=== PATIENT | male | born 1945 | race Caucasian/White ===

== ENCOUNTER → 2023-10-16 07:11 | Outpatient (REF) | payer MEDICARE, OTHER, SELFPAY ==
[2023-10-16 10:03] LABS: ALT (SGPT) 12 U/L (0-50); AST (SGOT) 19 U/L (17-59); Albumin 3.9 g/dl (3.5-5.0); Alkaline Phosphatase 104 U/L (38-126); Blood Urea Nitrogen 25 mg/dl (9-20); Calcium 9.3 mg/dl (8.4-10.2); Carbon Dioxide 31 mmol/L (22-30); Chloride 101 mmol/L (98-107); Glucose 122 mg/dl (70-99); Potassium 3.7 mmol/L (3.5-5.1); Sodium 138 mmol/L (135-145); Total Bilirubin 0.6 mg/dl (0.2-1.3); Total Protein 6.9 g/dl (6.3-8.2); eGFR > 60.00
[2023-10-16 11:25] LABS: Microalbumin, Random Urine 15.8 mg/dl (0.6-1.7)
[2023-10-16 12:29] LABS: Glycohemoglobin (HgbA1c) 7.2 % (4.0-5.6)
== END ==
LOC: HWLAB 07:11
PROVIDERS: ATTENDING PHYSICIAN Internal Medicine Endocrinology, Diabetes & Metabolism; FAMILY PHYSICIAN Family Medicine
DX: E11.9 Type 2 diabetes mellitus without complications (principal)
CPT/HCPCS: 36415; 80053; 82043; 82570; 83036

== ENCOUNTER → 2024-01-22 07:25 | Outpatient (REF) | payer MEDICARE, OTHER, SELFPAY ==
[2024-01-22 09:35] LABS: ALT (SGPT) 11 U/L (0-50); AST (SGOT) 21 U/L (17-59); Albumin 3.9 g/dl (3.5-5.0); Alkaline Phosphatase 94 U/L (38-126); Blood Urea Nitrogen 28 mg/dl (9-20); Calcium 9.4 mg/dl (8.4-10.2); Carbon Dioxide 30 mmol/L (22-30); Chloride 101 mmol/L (98-107); Glucose 89 mg/dl (70-99); Potassium 3.7 mmol/L (3.5-5.1); Sodium 139 mmol/L (135-145); Total Bilirubin 0.6 mg/dl (0.2-1.3); Total Protein 6.7 g/dl (6.3-8.2); eGFR > 60.00
[2024-01-22 09:42] LABS: Protein/creatinine Ratio 0.4; Urine Protein 23 mg/dl
== END ==
LOC: HWLAB 07:25
PROVIDERS: ATTENDING PHYSICIAN Internal Medicine Endocrinology, Diabetes & Metabolism; FAMILY PHYSICIAN Family Medicine
DX: E11.9 Type 2 diabetes mellitus without complications (principal); Z79.4 Long term (current) use of insulin; E34.9 Endocrine disorder, unspecified
CPT/HCPCS: 36415; 80053; 82570; 83036; 84156

== ENCOUNTER → 2024-06-12 07:57 | Outpatient (REF) | payer MEDICARE, OTHER, SELFPAY ==
[2024-06-12 09:43] LABS: Glycohemoglobin (HgbA1c) 7.3 % (4.0-5.6)
[2024-06-12 09:49] LABS: ALT (SGPT) 15 U/L (0-50); AST (SGOT) 20 U/L (17-59); Albumin 4.1 g/dl (3.5-5.0); Alkaline Phosphatase 84 U/L (38-126); Blood Urea Nitrogen 28 mg/dl (9-20); Calcium 9.3 mg/dl (8.4-10.2); Carbon Dioxide 28 mmol/L (22-30); Chloride 99 mmol/L (98-107); Glucose 156 mg/dl (70-99); Sodium 141 mmol/L (135-145); Total Bilirubin 1.1 mg/dl (0.2-1.3); Total Protein 6.8 g/dl (6.3-8.2); eGFR > 60.00
== END ==
LOC: REG 07:57
PROVIDERS: ATTENDING PHYSICIAN Internal Medicine Endocrinology, Diabetes & Metabolism; FAMILY PHYSICIAN Family Medicine
DX: E11.9 Type 2 diabetes mellitus without complications (principal)
CPT/HCPCS: 36415; 80053; 83036

== ENCOUNTER → 2024-10-02 13:48 | Outpatient (REF) | payer MEDICARE, OTHER, SELFPAY | LOC: HWRCS 13:48 | PROVIDERS: ATTENDING PHYSICIAN Internal Medicine Cardiovascular Disease; FAMILY PHYSICIAN Family Medicine | DX: I48.0 Paroxysmal atrial fibrillation (principal) | CPT/HCPCS: 93306 ==

== ENCOUNTER → 2024-10-09 07:47 | Outpatient (REF) | payer MEDICARE, OTHER, SELFPAY ==
[2024-10-09 10:32] LABS: ALT (SGPT) 13 U/L (0-50); AST (SGOT) 18 U/L (17-59); Albumin 4.1 g/dl (3.5-5.0); Alkaline Phosphatase 110 U/L (38-126); Blood Urea Nitrogen 30 mg/dl (9-20); Calcium 9.4 mg/dl (8.4-10.2); Carbon Dioxide 28 mmol/L (22-30); Chloride 99 mmol/L (98-107); Glucose 171 mg/dl (70-99); HDL Cholesterol 33 mg/dl; LDL Cholesterol, Calculated 33 mg/dl; Sodium 139 mmol/L (135-145); Total Bilirubin 0.7 mg/dl (0.2-1.3); Total Cholesterol 112 mg/dl (50-199); Total Protein 6.7 g/dl (6.3-8.2); Triglyceride 232 mg/dl (10-149); Very Low Density Lipoprotein 46 mg/dl (0-30); eGFR > 60.00
[2024-10-09 10:44] LABS: Protein/creatinine Ratio 0.3; Urine Protein 28 mg/dl
[2024-10-09 10:59] LABS: PSA, Total - Screen 1.73 ng/ml (0.0-4.0)
[2024-10-09 11:29] LABS: Glycohemoglobin (HgbA1c) 7.6 % (4.0-5.6)
== END ==
LOC: HWLAB 07:47
PROVIDERS: ATTENDING PHYSICIAN Internal Medicine Endocrinology, Diabetes & Metabolism; FAMILY PHYSICIAN Family Medicine
DX: Z12.5 Encounter for screening for malignant neoplasm of prostate (principal); E11.9 Type 2 diabetes mellitus without complications; Z79.4 Long term (current) use of insulin; E34.9 Endocrine disorder, unspecified; R80.9 Proteinuria, unspecified
CPT/HCPCS: 36415; 80053; 80061; 82570; 83036; 84156; G0103

== ENCOUNTER → 2025-01-13 07:38 | Outpatient (REF) | payer MEDICARE, OTHER, SELFPAY ==
[2025-01-13 10:20] LABS: Glycohemoglobin (HgbA1c) 7.1 % (4.0-5.6)
[2025-01-13 10:23] LABS: ALT (SGPT) 11 U/L (0-50); AST (SGOT) 16 U/L (17-59); Albumin 4.1 g/dl (3.5-5.0); Alkaline Phosphatase 91 U/L (38-126); Blood Urea Nitrogen 22 mg/dl (9-20); Calcium 9.1 mg/dl (8.4-10.2); Carbon Dioxide 28 mmol/L (22-30); Chloride 103 mmol/L (98-107); Glucose 109 mg/dl (70-99); Potassium 3.7 mmol/L (3.5-5.1); Sodium 138 mmol/L (135-145); Total Protein 6.8 g/dl (6.3-8.2); eGFR > 60.00
== END ==
LOC: HWLAB 07:38
PROVIDERS: ATTENDING PHYSICIAN Internal Medicine Endocrinology, Diabetes & Metabolism; FAMILY PHYSICIAN Family Medicine
DX: E11.9 Type 2 diabetes mellitus without complications (principal)
CPT/HCPCS: 36415; 80053; 83036

== ENCOUNTER 2025-01-28 15:15 | Inpatient (IN) | payer MEDICARE, OTHER, SELFPAY ==
[2025-01-28] VITALS (15 sets, daily range): BP systolic 85–140; BP diastolic 48–108; BMI 31.1
--- NOTE | 2025-01-28 12:41 | ED.GENMED ---
Addendum entered and electronically signed by Riley Saucedo DO 01/28/25 15:12:
Update asked to reevaluate the patient he looks flushed blood pressure in the 80s received half his dose of Vanco suspect more sepsis than red man, will run the rest antibiotic is slowly give a second liter saline, follow closely
Reviewed with hospitalist and nursing patient and Dr. Daniels's
CRITICAL CARE STATEMENT: A total of 30 minutes of critical care time was provided for this patient. This includes management of unstable vital signs, evaluation of the patient at bedside, reviewing the patient's pertinent medical records discussion
with EMS providers and patient's family in addition to discussion with consultants, review of old EKGs and review of pertinent medical records. This time with separate from time utilized to perform the aforementioned documented procedures
Original Note:
History of Present Illness
General
Chief Complaint: Skin Problem
Source: patient, spouse and previous hospital records
Exam Limitations: none
Time Seen by Provider: 01/28/25 12:05
History of Present Illness
History of Present Illness:
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 Frank Carbajal cardiology
has PAF no known history of peripheral vascular disease
Past History
Past History
ED Past Medical History: Arrthythmia (atrial fibrillation), CAD, HTN, Hypercholesterolemia, IDDM, NIDDM and Other (Back pain, hepatitis secondary to mononucleosis in 1989)
ED Past Surgical History: Orthopedic (lumbar laminectomy, bilateral knee arthroscopy) and Other (lumbar epidural steroid injection, spinal nerve stimulator implant)
Social History
Tobacco: Non-smoker
Alcohol: None
Drug: None
Personal:
Living: with family
Employment: Employed
Family History
Family History: Other (reviewed and noncontributory)
Review of Systems
Review of Systems
All Other Systems: Not applicable
Phy Exam
Physical Exam
Physical Exam:
Physical Exam
General: 79-year-old male normal mental status low-grade temp noted
Neck: No jaundice
Heart: s1/s2 regular rate and rhythm, no murmur. equal radial pulses.
Lungs: no acute respiratory distress. clear bilaterally
Abdomen: Nontender
Neuro: alert and oriented. no focal neurological deficits
Skin: no rash
Psychiatric: well kept. interactive and cooperative
Extremities: Left foot warm red cellulitic blackish area between the 4th and 5th toe
Course
Orders/Labs/Results
Orders:
Orders
01/28/25 12:19
Electrocardiogram (*1) Urgent
Reason for Study: Other
Other Reason for Exam: sepsis
Cardiac Monitoring- Treatment ONCE
EKG- Treatment ONCE
IV Insert/Care/Rem.- Treatment PRN
Acetaminophen [Tylenol] 1,000 mg PO NOW STA
Morphine Sulfate 4 mg IV NOW STA
01/28/25 12:20
Foot, Left 3 View [CR Foot - Left Min 3 Views] Urgent
Comment:
Reason For Exam: infection
01/28/25 12:23
CRP [C-Reactive Protein] Urgent
Complete Blood Count/With Diff Urgent
Comprehensive Metabolic Panel Urgent
ESR [Erythrocyte Sed Rate] Urgent
Lactic Acid Q4H
Comment: CANCEL 2nd LACTIC ACID IF 1st LACTIC ACID IS LESS THAN 2
01/28/25 12:24
Blood Culture Q30M
SHAWNA Source: Blood/Venous
Specimen Description:
01/28/25 12:30
Lactic Acid Q4H
Comment: CANCEL 2nd LACTIC ACID IF 1st LACTIC ACID IS LESS THAN 2
01/28/25 12:41
Add On- LAB Urgent
Tests Added?: hemoglobin a1c
01/28/25 13:00
Blood Culture Q30M
SHAWNA Source: Blood/Venous
Specimen Description:
01/28/25 13:26
Vancomycin [Vancocin] 2,000 mg 0.9% Sodium Chloride 500 ml [Nss] 500 ml IV NOW
Abnormal Lab Results
01/28/25
12:23
WBC 26.0 H 10^3/uL
(4.8-10.8)
RBC 3.84 L 10^6/uL
(4.70-6.10)
Hgb 11.6 L g/dL
(13.0-18.0)
Hct 34.4 L %
(39.0-52.0)
ESR 78 H mm/hour
(0-20)
Sodium 133 L mmol/L
(135-145)
Chloride 97 L mmol/L
(98-107)
BUN 33 H mg/dl
(9-20)
Glucose 117 H mg/dl
(70-99)
C-Reactive Protein 228.10 H mg/L
(0.0-10.00)
01/28/25 12:23
01/28/25 12:23
Vital Signs
Initial and Last Documented VS:
Initial Vital Signs
Temp Pulse Resp BP Pulse Ox
99.5 F 95 16 117/59 95
01/28/25 10:12 01/28/25 10:12 01/28/25 10:12 01/28/25 10:12 01/28/25 10:12
Last Documented Vital Signs
Temp Pulse Resp BP Pulse Ox
99.5 F 95 16 117/59 95
01/28/25 10:12 01/28/25 10:12 01/28/25 10:12 01/28/25 10:12 01/28/25 12:41
MDM/Problems Addressed
Differential Diagnosis Includes:
Cellulitis osteomyelitis peripheral vascular disease
MDM/Problems Addressed:
Infected foot
Chronic conditions affecting care: DM, HTN, CAD and Arrhythmia
Acute Exacerbation and/or Progression of Chronic Illness: DM, HTN, CAD and Arrhythmia
*Radiology
Radiology exam reviewed: preliminary read by ED provider
*Pulse Oximetry
SaO2: 95
Oxygen Mode of Delivery: Room air
Patient hypoxic: no
*EKG
Interpreted by ED Provider?: Yes
Interpretation: abnormal
Comparison EKG: no comparison EKG present
Heart Rate: 78
Rate: normal
Rhythm: sinus
Ischemia: non-specific ST changes
*Toe Former Stitchdowns Interpretation
Rate: normal
Interpretation: normal
Heart Rate: 78
Rhythm: sinus
*Critical Care Note
Total Time (30-74mins, 75-104mins- exclusive of procedures): Not Applicable
Update Note
Update Note:
2 PM update x-ray noted report noted inflammatory markers noted labs noted antibiotics ordered message sent to hospitalist for admission
ED Attending Note
-
Portions of this chart may have been created with voice recognition software.� Occasional wrong word or��sound alike� substitutions may have occurred due to the inherent limitations of voice recognition software.
Discharge Plan
Departure
Patient Disposition: Admit
Date of Disposition: 01/28/25
Time of Disposition: 13:57
Admit to: Med/Surg
Presentation/result/management discussed w/ accepting MD/DO: Hospitalist
Patient with high blood pressure during this ER visit?: No
Condition: Fair
Discharge Problem:
Diabetic foot infection
Prescriptions:
No Action
lovastatin 40 MG tablet
40 mg PO HS
insulin aspart U-100 [Novolog U-100 Insulin aspart] 1,000 UNITS/10 ML solution
4 - 14 units SC AC
hydrochlorothiazide 50 MG tablet
50 mg PO DAILY
lisinopril 20 MG tablet
20 mg PO BID
metformin 1,000 MG tablet
1,000 mg PO BID@0800,1700 Qty: 0 0RF
Rx Instructions:
Resume on Monday 6/3 evening
Metamucil Packet
1 packet PO BID
hydralazine 25 mg tablet
25 mg PO BID
Probiotic 5 billion cell Capsule, Sprinkle
1 cap PO DAILY
insulin degludec 100 unit/mL (3 mL) insulin pen
24 unit SC HS
metoprolol succinate 25 MG tablet extended release 24 hr
25 mg PO BID
Xarelto 20 MG tablet
20 mg PO QPM
Referrals:
Kasey Pathak MD [Family Provider, Endocrinology]
Interventions
Interventions:
*Risk Screen - Suicide Last Done: 01/28/25 10:14
*General Assessment Last Done: 01/28/25 12:10
*Neglect/Abuse Screening Last Done: 01/28/25 10:14
*ED- Fall Risk Assessment Last Done: 01/28/25 12:10
*ED COVID-19 Vaccine History Last Done: 01/28/25 12:10
Discharge Date and Time
Print Language: IRANIAN
[2025-01-28] MEDS: MORPHINE SULFATE 4 MG IV ×2 (13:10→20:12)
[2025-01-28] MEDS: TYLENOL 1000 MG PO (13:10)
[2025-01-28 13:17] LABS: Hematocrit 34.4 % (39.0-52.0); Hemoglobin 11.6 g/dL (13.0-18.0); Mean Corp Hgb Conc. 33.7 g/dL (33.0-37.0); Mean Corpuscular Volume 89.6 fL (80.0-94.0); Platelet Count 309 10^3/uL (130-400); Red Cell Dist. Width 14.1 % (11.5-14.5)
[2025-01-28 13:31] LABS: ALT (SGPT) 15 U/L (0-50); AST (SGOT) 22 U/L (17-59); Albumin 4.1 g/dl (3.5-5.0); Alkaline Phosphatase 110 U/L (38-126); Blood Urea Nitrogen 33 mg/dl (9-20); Calcium 9.4 mg/dl (8.4-10.2); Carbon Dioxide 27 mmol/L (22-30); Chloride 97 mmol/L (98-107); Estimated Creatinine Clearance 69 ml/min; Glucose 117 mg/dl (70-99); Potassium 4.1 mmol/L (3.5-5.1); Sodium 133 mmol/L (135-145); Total Protein 7.2 g/dl (6.3-8.2); eGFR > 60.00
[2025-01-28 13:50] LABS: C-Reactive Protein 228.10 mg/L (0.0-10.00)
[2025-01-28] MEDS: VANCOCIN 540 MG IV (14:01)
--- NOTE | 2025-01-28 14:05 | HPS.HSE ---
Family Physician
-
Family Physician: Kasey Pathak
Chief Complaint
-
Left foot erythema extending up left medial thigh with rigors, dry heaves
History of Present Illness
79-year-old male who states a few weeks ago he expressed pus from the plantar aspect of his fifth metatarsal near a callus then applied triple antibiotic ointment over top of it. He states he started to notice erythema on the dorsal aspect of the
fifth metatarsal over the past few weeks which then progressed to generalized erythema and lymphangitis on the medial aspect of his leg extending to the mid thigh over the past 4 days. He states he began ciprofloxacin then yesterday developed
rigors in between taking Advil and Tylenol along with dry heaves. He has history of paroxysmal A-fib is on Xarelto. He did take his a.m. medications this morning except diabetic meds due to nausea his current sugar is 115.
He has past medical history DM 2, HTN, HLD, permanent A-fib, permanent pacemaker cardiac pauses 2021, chronic left leg weakness due to back injury during procedure 2019, spinal stimulator
Medical History
Past Medical History
Past Medical History: Reports Other
Additional Past Medical History:
DM 2
HTN,
HLD
permanent A-fib on Xarelto
permanent pacemaker cardiac pauses 2021
chronic left leg weakness due to back injury during procedure 2019
spinal stimulator not active
Past Surgical History: Reports Other
Additional Past Surgical History:
spinal stimulator not active
Permanent pacemaker 2021
Bilateral knee arthroscopy
Lumbar laminectomy
Lumbar procedure unknown type XX 20 leaving patient with left leg weakness, numbness
Trigger finger release bilateral hands
Social History
Tobacco: Non-smoker
Alcohol: None
Drug: None
Personal:
Living: With Family ( Aline)
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
Family History
Family History: Not pertinent
Allergies / Home Medications
Allergies reflects when Allergies were last updated in [employer].
Home Medications with original date entered in [employer]
Allergy/Medication List:
Allergies
Allergy/AdvReac Type Severity Reaction Status Date / Time
No Known Allergies Allergy Verified 09/21/21 09:39
Home Medications
insulin aspart U-100 100 unit/mL subcutaneous solution (Novolog U-100 Insulin aspart) 4 - 14 units SC AC Diabetes 09/07/21
lovastatin 40 mg tablet 40 mg PO HS High cholesterol 09/07/21
hydrochlorothiazide 50 mg tablet 50 mg PO DAILY Blood Pressure 09/21/21
lisinopril 20 mg tablet 20 mg PO BID Blood pressure 09/21/21
metformin 1,000 mg tablet 1,000 mg PO BID@0800,1700 Diabetes ##0 12/02/21
Lactobacil.acidophilus-Bifido.animalis 5 billion cell sprinkle capsule (Probiotic) 1 cap PO DAILY Gastrointestinal Issue 01/28/25
hydralazine 25 mg tablet 25 mg PO BID Blood Pressure 01/28/25
insulin degludec 100 unit/mL (3 mL) subcutaneous pen 24 unit SC HS Diabetes 01/28/25
metoprolol succinate 25 mg tablet,extended release 24 hr 25 mg PO BID Blood Pressure 01/28/25
psyllium 1 packet PO BID Constipation 01/28/25
rivaroxaban 20 mg tablet (Xarelto) 20 mg PO QPM Blood clot prevention/tx 01/28/25
Review of Systems
-
History Source: Patient and Family ( Aline)
A 12 point ROS was completed and negative except as noted: Yes
Constitutional: Reports Fever and Chills
EENT: Denies Sore Throat or Runny Nose
Respiratory: Denies Cough or Trouble Breathing
Cardiac: Denies Chest Pain, Diaphoresis, Palpitations or Syncope
Abdomen/GI: Reports Nausea and Vomiting (Dry heaves); Denies Abdominal Pain, Diarrhea or Constipated
: Denies Dysuria, Frequency, Flank Pain, Incontinence, Difficulty Voiding or Urgency
Skin: Reports Other (erythema on the dorsal aspect of the fifth metatarsal extending to the medial aspect of his leg extending to the mid thigh, plantar solid callus left fifth metatarsal); Denies Itching or Rash
Neurological: Denies Dizzy or Headache
Endocrine: Reports No Symptoms
Hematologic/Lymphatic: Reports No Symptoms
Psych: Reports Calm
Physical Exam
Vital Signs
Vital Signs
Temp Pulse Resp BP Pulse Ox
99.5 F 95 16 117/59 95
01/28/25 10:12 01/28/25 10:12 01/28/25 10:12 01/28/25 10:12 01/28/25 12:41
Physical Exam
General: Pain, Fever and Chills
HEENT: NormoCephalic, Anicteric, Moist mucous membranes, Terral Conjunctivae and No Ptosis
Respiratory: Clear; No Wheezes, Rales or Rhonchi
Cardiac: S1/S2, Irregular Rhythm (A-fib) and Peripheral Edema (Left lower extremity); No Murmur, Rub or Gallop
GI: Soft, Non Tender, Non Distended, Normal Bowel Sounds and No Hepatosplenomegaly
Rectal: Deferred by Provider
Musculoskeletal: No Clubbing, No Cyanosis and Edema, Left Lower Extremity (erythema on the dorsal aspect of the fifth metatarsal extending to the medial aspect of his leg extending to the mid thigh, plantar solid callus left fifth metatarsal); No
Edema, Left Upper Extremity, Edema, Right Upper Extremity or Edema, Right Lower Extremity
Skin: Warm, Dry and Other (erythema on the dorsal aspect of the fifth metatarsal extending to the medial aspect of his leg extending to the mid thigh, plantar solid callus left fifth metatarsal); No Rash
Neuro: AO x 3, No Motor Deficits, Nonfocal/grossly intact, Cranial Nerves Intact and No Sensory Deficits; No Slurred Speech, Facial Droop, Tremors or Sedated
Psych: Calm
Laboratory Results
-
01/28/25 12:23
01/28/25 12:23
Laboratory Results
Lactic Acid 1.8 mmol/L (0.7-2.0) 01/28/25 12:23
Total Bilirubin 1.3 mg/dl (0.2-1.3) 01/28/25 12:23
AST 22 U/L (17-59) 01/28/25 12:23
ALT 15 U/L (0-50) 01/28/25 12:23
Alkaline Phosphatase 110 U/L (38-126) 01/28/25 12:23
Data Reviewed
-
Diagnostic Radiology: Report Reviewed by me
Lab Data: Labs Reviewed by me
Impression/Plan
-
Impression/plan:
Admit to telemetry
#Sepsis 2/2 to Diabetic left foot cellulitis w/Lymphangitis
#chronic left leg weakness due to back injury during procedure 2019
WBC 26, 99.5
ESR 78, CRP 228
-Blood cultures x 2
- IV vancomycin, Iv Zosyn
- check mrsa swab
- Unable to have MRI due to spinal stimulator not active
-Follow CBC, CMP
PT/OT
X-ray left foot: No acute osseous abnormality.
Mild soft tissue swelling along the lateral forefoot
#DM 2
Accu-Cheks with SSI low
Hold metformin 1000 mg twice daily
- Hold Tresiba 24 units SQ at bedtime due to dry heaves nausea mild hyperglycemia
#Mild hypotension/HTN/essential
BP 106/59-patient did take a.m. medications
Hold hydralazine 25 mg twice daily, lisinopril 20 mg twice daily,
- Continue metoprolol 25 mg twice daily for rate control with hold parameters
-Hold HCTZ 50 mg daily
- IV NSS 60 cc an hour
#A-fib�permanent
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
-- Continue metoprolol 25 mg twice daily for rate control with hold parameters
-cont Xarelto
- Patient follows with Dr. Munoz
#HLD
-Continue lovastatin 40 mg at bedtime
DVT prophylaxis
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
Full code
[2025-01-28 14:20] LABS: Nucleated Red Blood Cells % 0 % (-)
[2025-01-28] MEDS: NSS 1000 IV ×2 (15:12→18:14)
--- NOTE | 2025-01-28 15:24 | W.PN.UPDATE ---
Update Note
Progress Note Update
This is an addendum to the H&P written by Araseli Jasso on 01/28/2025. �Patient seen and examined independently with INTERNET MARKETING CONSULTANT.
79-year-old male past medical history of permanent atrial fibrillation on Xarelto, hyperlipidemia, hypertension, diabetes, presenting with left fifth metatarsal callus/tenderness with redness, swelling progressing up the leg. �He expressed pus from
the callus 3 weeks ago and put antibiotic on it.
Labs show leukocytosis.
Foot x-ray shows mild soft tissue swelling of the lateral forefoot.
Patient septic secondary to left foot cellulitis with lymphangitis. �IV fluids, blood cultures, check MRSA, vancomycin and Zosyn. �Hold blood pressure medications for now.
[2025-01-28 17:43] LABS: Glucose - Point of Care 124 mg/dl (70-99)
[2025-01-28] MEDS: NOVOLOG FLEXPEN-LOW RESISTANCE SC (17:59)
--- NOTE | 2025-01-28 18:01 | PHA.VAN.IN ---
Assessment
- Assessment
Renal Function: Appears similar to baseline
Concomitant Antimicrobials: piperacillin/tazobactam
AUC Dosing Plan
- Dosing Variables
Dosing Weight (kg): 95.6
Dosing CrCl (ml/min): 69
Vd coefficient (L/kg): 0.7
- Empiric Dosing
Initial / Loading Dose: vanc 2000mg administered @ 1400
Maintenance Regimen: vanc 1000mg Q12H
Estimated AUC (mcg*h/mL): 500
Estimated Peak (mcg*h/mL): 28.6
Estimated Trough (mcg/ml): 14.5
Estimated Half Life (H): 11.2
- Monitoring
No levels ordered at this time: consider levels in next few days
Pharmacokinetics Vancomycin I
- -
Patient Age: 79
Patient Sex: Male
Vancomycin Day #: 1
Indication: Bone And Joint
Requesting Provider: Araseli Jasso
Pertinent Antimicrobial Allergies:
no pertinent antimicrobial allergies
Height / Weight:
Height 5 ft 9 in
Actual Weight 95.6 kg
- Vital Signs / Lab Results
Temp Pulse Resp BP Pulse Ox
97.8 F 79 15 97/56 96
01/28/25 17:35 01/28/25 17:15 01/28/25 17:15 01/28/25 17:00 01/28/25 17:15
Lab Results - Hematology
01/28/25
12:23
WBC 26.0 H
Lab Results - Chemistry
01/28/25
12:23
BUN 33 H
Creatinine 1.0
Estimated Creat Clear 69
Albumin 4.1
01/28/25
12:23
Lactic Acid 1.8
[2025-01-28] MEDS: ZOSYN 50 IV ×2 (18:12→21:15)
[2025-01-28] MEDS: GLUCOPHAGE 1000 MG PO (18:13)
[2025-01-28] MEDS: XARELTO 20 MG PO (18:15)
[2025-01-28] MEDS: ROXICODONE 5 MG PO (18:15)
[2025-01-28] MEDS: METAMUCIL, KONSYL 1 PACKET PO (20:11)
[2025-01-28] MEDS: TOPROL XL PO (20:11)
[2025-01-28 21:47] LABS: Glucose - Point of Care 198 mg/dl (70-99)
[2025-01-29] VITALS (13 sets, daily range): BP systolic 97–147; BP diastolic 52–86; BMI 30.5
--- NOTE | 2025-01-29 00:34 | PTCARENOTE ---
Pt aaox3. Pt's on and at bedside at start of shift. Pt's sleep apnea score 4, intermediate. Per pt he was tested for sleep apnea in the past and it was negative. SpO2 95% on RA. afib w/ BBB on the monitor. Vital signs and assessment as
documented. DOMENIC medications administered as well as PRN Morphine for 8/10 LLE pain (see AUG). Pt is currently resting in bed asleep with call cervantes in reach.
--- NOTE | 2025-01-29 00:37 | PTCARENOTE ---
Assumed care of pt from arlin RN. Pt aaox3. Pt's son and at bedside at the start of shift. Pt's sleep apnea score 4 (intermediate risk). Per pt he was tested for sleep apnea in the past and it was negative. SpO2 95% on RA. afib w/ BBB on the
monitor. Vital signs and assessment as documented. DOMENIC medications administered as well as PRN Morphine for 8/10 LLE pain (see AUG). An hour after, pt's pain decreased to a 6 during post admin assessment. Pt stated this was an acceptable level of
pain for him at this time, and did not want to take anything else for it. Pt is currently resting in bed asleep with call cervantes in reach.
[2025-01-29] MEDS: ZOSYN 50 IV ×4 (03:52→21:06)
[2025-01-29 04:24] LABS: Hematocrit 30.8 % (39.0-52.0); Hemoglobin 10.5 g/dL (13.0-18.0); Mean Corp Hgb Conc. 34.1 g/dL (33.0-37.0); Mean Corpuscular Volume 90.1 fL (80.0-94.0); Nucleated Red Blood Cells % 0 % (-); Platelet Count 284 10^3/uL (130-400); Red Cell Dist. Width 14.1 % (11.5-14.5)
[2025-01-29 04:53] LABS: ALT (SGPT) 16 U/L (0-50); AST (SGOT) 39 U/L (17-59); Albumin 3.4 g/dl (3.5-5.0); Alkaline Phosphatase 104 U/L (38-126); Blood Urea Nitrogen 30 mg/dl (9-20); Calcium 8.4 mg/dl (8.4-10.2); Carbon Dioxide 25 mmol/L (22-30); Chloride 102 mmol/L (98-107); Estimated Creatinine Clearance 69 ml/min; Glucose 177 mg/dl (70-99); Potassium 3.8 mmol/L (3.5-5.1); Sodium 134 mmol/L (135-145); Total Protein 6.0 g/dl (6.3-8.2); eGFR > 60.00
[2025-01-29] MEDS: MORPHINE SULFATE 4 MG IV ×3 (06:13→19:55)
[2025-01-29] MEDS: VANCOCIN 200 IV ×2 (06:13→18:32)
[2025-01-29 07:24] LABS: Glucose - Point of Care 218 mg/dl (70-99)
--- NOTE | 2025-01-29 07:59 | W.PN.HOSP.TC ---
Today's Communication/Plan
-
Stable for telemetry
Assessment / Plan
Assessment / Plan
HPI: 79-year-old male past medical history of permanent atrial fibrillation on Xarelto, hyperlipidemia, hypertension, diabetes, presenting with left fifth metatarsal callus/tenderness with redness, swelling progressing up the leg. He expressed pus
from the callus 3 weeks ago and put antibiotic on it. Labs show leukocytosis. Foot x-ray shows mild soft tissue swelling of the lateral forefoot. Patient septic secondary to left foot cellulitis with lymphangitis. �IV fluids, blood cultures, check
MRSA, vancomycin and Zosyn. �Hold blood pressure medications for now.
#Sepsis 2/2 to Diabetic left foot cellulitis w/ lymphangitis
#Chronic left leg weakness due to back injury during procedure 2019
Unable to have MRI due to spinal stimulator not active
Labs in ER: WBC 26, ESR 78, CRP 228
Continue IV vancomycin, Zosyn. Follow-up on blood cultures, MRSA screen
Stable for telemetry. Trend fever and white count
PT/OT
X-ray left foot: No acute osseous abnormality.
Mild soft tissue swelling along the lateral forefoot
#DM 2
Continue metformin 1000 mg daily, resume basal insulin at reduced dose of 10 units at bedtime, patient takes 24 at home
Accu-Cheks with SSI low
#Mild hypotension/HTN/essential
BP 106/59-patient did take a.m. medications
Hold hydralazine 25 mg twice daily, lisinopril 20 mg twice daily, HCTZ 50 mg daily
Continue metoprolol 25 mg twice daily for rate control with hold parameters
IV NSS 60 cc an hour
#A-fib�permanent
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
-Continue metoprolol 25 mg twice daily for rate control with hold parameters
-Continue Xarelto
-Patient follows with Dr. Munoz
#HLD
-Continue lovastatin 40 mg at bedtime
DVT prophylaxis - PROGRAM AIDE GROUP WORK Xarelto
Full code
Total time spent to see the patient on the floor, examine the patient, review data and lab results, discuss treatment plan with patient, nursing staff around 50 minutes.
Physical Exam
General: No acute distress
HEENT: Normocephalic, Atraumatic, EOMI, MMM
Respiratory: Clear to Auscultation bilaterally
Cardiac: Normal S1/S2, Regular Rate and Rhythm
GI: Soft, Nontender, Nondistended, Normal Bowel Sounds
Extremities: No Clubbing, Cyanosis
Left foot with scattered erythema, improving erythema of the calf
Neuro: Nonfocal/Grossly Intact
Psych: Calm, Cooperative
Anticipated Discharge: > 48 hours
Subjective/Interval History
-
Date of Service: January 29, 2025
Patient's left foot is numb, with intermittent shooting pain. Denies chest pain, denies shortness of breath. Fever resolved, no vomiting.
Objective Data
-
Labs:
Laboratory Results
01/29/25
04:07
WBC 18.3 H
Hgb 10.5 L
Hct 30.8 L
Plt Count 284
Sodium 134 L
Potassium 3.8
Chloride 102
Carbon Dioxide 25
BUN 30 H
Creatinine 1.0
Glucose 177 H
Calcium 8.4
Total Bilirubin 0.9
AST 39
ALT 16
Alkaline Phosphatase 104
Vital Signs:
Vital Signs
Temp Pulse Resp BP Pulse Ox
98.8 F 101 16 123/82 91
01/29/25 03:08 01/29/25 04:30 01/29/25 04:30 01/29/25 04:11 01/29/25 04:30
I&O
01/28/25 01/29/25 01/30/25
06:59 06:59 06:59
Intake Total 1500 / 1500
Output Total 800 / 800
Balance 700 / 700
--- NOTE | 2025-01-29 08:17 | PHA.VAN.FU ---
Vancomycin Assessment / Plan
- Assessment
Renal Function: Stable
WBC's are: Trending Down
In the past 24 hrs, patient has been: Afebrile
Concomitant Antimicrobials: piperacillin/tazobactam
- Dosing Plan
Continue: Vanc 1000mg Q12H
- Monitoring Plan
No level(s) ordered at this time: consider levels in next few days
- Follow Up
Pharmacy will continue to follow.
Vancomycin Follow UP
- -
Patient Age: 79
Patient Sex: Male
Vancomycin Day #: 2
Indication: Bone And Joint
Requesting Provider: Araseli Jasso
Pertinent Antimicrobial Allergies:
NKDA
Height / Weight:
Height 5 ft 9 in
Actual Weight 93.7 kg
Pertinent Past Medical History: BMI ~30.5, DM 2
- Vital Signs / Lab Results
Temp Pulse Resp BP Pulse Ox
98.8 F 101 16 123/82 91
01/29/25 03:08 01/29/25 04:30 01/29/25 04:30 01/29/25 04:11 01/29/25 04:30
Lab Results - Hematology
01/28/25 01/29/25
12:23 04:07
WBC 26.0 H 18.3 H
Lab Results - Chemistry
01/28/25 01/29/25
12:23 04:07
BUN 33 H 30 H
Creatinine 1.0 1.0
Estimated Creat Clear 69 69
Albumin 4.1 3.4 L
01/28/25 01/28/25
12:23 12:30
Lactic Acid 1.8 Cancelled
[2025-01-29 10:04] LABS: Glucose - Point of Care 237 mg/dl (70-99)
[2025-01-29] MEDS: TOPROL XL 25 MG PO ×2 (10:07→19:56)
[2025-01-29] MEDS: GLUCOPHAGE 1000 MG PO ×2 (10:07→16:56)
[2025-01-29] MEDS: ROXICODONE 5 MG PO (10:08)
[2025-01-29] MEDS: METAMUCIL, KONSYL PO ×2 (10:09→20:26)
[2025-01-29] MEDS: NSS 1000 IV (11:29)
[2025-01-29 11:43] LABS: Glucose - Point of Care 271 mg/dl (70-99)
[2025-01-29] MEDS: NOVOLOG FLEXPEN-LOW RESISTANCE 3 UNITS SC (12:54)
[2025-01-29] MEDS: NOVOLOG FLEXPEN-LOW RESISTANCE SC (12:54)
--- NOTE | 2025-01-29 16:30 | PTCARENOTE ---
Patient AAOX3. Patient refusing nursing care. Medicating with pain medication as ordered for pain at left foot. IV fluids and antibiotics infusing via left wrist IV. VS stable,afebrile. Afib on monitor. Family in room at bedside.
[2025-01-29 17:27] LABS: Glucose - Point of Care 218 mg/dl (70-99)
[2025-01-29] MEDS: NOVOLOG FLEXPEN-LOW RESISTANCE 2 UNITS SC (18:27)
[2025-01-29] MEDS: XARELTO 20 MG PO (18:32)
[2025-01-29] MEDS: LANTUS 0.1 UNITS SC (21:06)
[2025-01-29 21:19] LABS: Glucose - Point of Care 227 mg/dl (70-99)
[2025-01-30] VITALS (9 sets, daily range): BP systolic 113–175; BP diastolic 66–84
[2025-01-30] MEDS: NSS 1000 IV (03:32)
[2025-01-30] MEDS: ZOSYN 50 IV ×4 (03:33→22:12)
[2025-01-30 04:06] LABS: Hematocrit 29.1 % (39.0-52.0); Hemoglobin 9.9 g/dL (13.0-18.0); Mean Corp Hgb Conc. 34.0 g/dL (33.0-37.0); Mean Corpuscular Volume 89.8 fL (80.0-94.0); Platelet Count 272 10^3/uL (130-400); Red Cell Dist. Width 14.0 % (11.5-14.5)
[2025-01-30] MEDS: VANCOCIN 200 IV (05:48)
--- NOTE | 2025-01-30 06:21 | PTCARENOTE ---
No acute events overnight. Refusing care at times. Placed on 1 liter NC to maintains sp02 above 91. PRN morphine given for pain. Afebrile. Will continue to monitor.
[2025-01-30] MEDS: TOPROL XL 25 MG PO ×2 (08:58→20:20)
[2025-01-30] MEDS: GLUCOPHAGE 1000 MG PO ×2 (08:58→17:10)
[2025-01-30] MEDS: NOVOLOG FLEXPEN-LOW RESISTANCE 2 UNITS SC ×2 (09:05→12:51)
--- NOTE | 2025-01-30 09:14 | W.PN.HOSP.TC ---
Today's Communication/Plan
-
see bold
Assessment / Plan
Assessment / Plan
HPI: 79-year-old male past medical history of permanent atrial fibrillation on Xarelto, hyperlipidemia, hypertension, diabetes, presenting with left fifth metatarsal callus/tenderness with redness, swelling progressing up the leg. He expressed pus
from the callus 3 weeks ago and put antibiotic on it. Labs show leukocytosis. Foot x-ray shows mild soft tissue swelling of the lateral forefoot. Patient septic secondary to left foot cellulitis with lymphangitis. �IV fluids, blood cultures, check
MRSA, vancomycin and Zosyn. �Hold blood pressure medications for now.
#Sepsis 2/2 to Diabetic left foot cellulitis w/ lymphangitis
#Chronic left leg weakness due to back injury during procedure 2019
Unable to have MRI due to spinal stimulator not active
Labs in ER: WBC 26, ESR 78, CRP 228
Continue Zosyn. MRSA screen negative, will discontinue vancomycin
Stable for telemetry. Trend fever and white count
PT/OT, wound care, consult podiatry, follow-up ABIs
X-ray left foot: No acute osseous abnormality.
Mild soft tissue swelling along the lateral forefoot
#DM 2
Hemoglobin A1c 7.1
Continue metformin 1000 mg daily, resumed basal insulin at reduced dose of 12 units at bedtime, patient takes 24 at home
Start Premeal insulin 3 units AC 3 times daily
Accu-Cheks with SSI low
#Essential hypertension
Blood pressure soft upon admission
Continue metoprolol 25 mg twice daily for rate control with hold parameters
Blood pressure rising, resume lisinopril 20 mg daily with hold parameters
Hold hydralazine 25 mg twice daily, hold HCTZ 50 mg daily
Can stop IV fluids
#A-fib�permanent
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
-Continue metoprolol 25 mg twice daily for rate control with hold parameters
-Continue Xarelto. Patient follows with Dr. Munoz
#HLD
-Continue lovastatin 40 mg at bedtime
#Obesity due to excess calories
- Affects all aspects of care
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
Full code
Total time spent to see the patient on the floor, examine the patient, review data and lab results, discuss treatment plan with patient, nursing staff around 51 minutes.
Physical Exam
General: Obese, no acute distress
HEENT: Normocephalic, Atraumatic, EOMI, MMM
Respiratory: Clear to Auscultation bilaterally
Cardiac: Normal S1/S2, Regular Rate and Rhythm
GI: Soft, Nontender, Nondistended, Normal Bowel Sounds
Extremities: No Clubbing, Cyanosis
Left foot with scattered erythema, improving erythema of the calf
Neuro: Nonfocal/Grossly Intact
Psych: Calm, Cooperative
Anticipated Discharge: > 48 hours
Subjective/Interval History
-
Date of Service: January 30, 2025
Patient denies foot pain. He is usually numb, but can have sharp shooting pains. He is constipated, but is refusing laxatives. No fever, no chest pain. No shortness of breath, no vomiting.
Objective Data
-
Labs:
Laboratory Results
01/30/25
03:39
WBC 19.6 H
Hgb 9.9 L
Hct 29.1 L
Plt Count 272
Vital Signs:
Vital Signs
Temp Pulse Resp BP Pulse Ox
98.2 F 90 14 175/82 97
01/30/25 07:05 01/30/25 06:03 01/30/25 06:03 01/30/25 06:03 01/30/25 02:00
I&O
01/29/25 01/30/25 01/31/25
06:59 06:59 06:59
Intake Total 1500 / 1500 2405 / 2405
Output Total 800 / 800 710 / 710
Balance 700 / 700 1695 / 1695
[2025-01-30 09:16] LABS: Glucose - Point of Care 230 mg/dl (70-99)
--- NOTE | 2025-01-30 09:34 | WOUNDNOTE ---
L FOOT (DORSAL)/LLE
--- NOTE | 2025-01-30 09:35 | WOUNDNOTE ---
L PLANTAR FOOT (lateral forefoot opening communicates under skin to plantar 5th MTH)
--- NOTE | 2025-01-30 09:36 | WOUNDNOTE ---
L PLANTAR FOOT (lateral forefoot opening communicates under skin to plantar 5th MTH)
--- NOTE | 2025-01-30 09:49 | WOUNDNOTE ---
[facility] RN note: Patient admitted with LLE cellulitis. 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 He stated he was wearing shoes that he hasn't worn in a long time recently which caused L foot skin breakdown.
See H&P for complete history.
PMH: a fib (Xarelto), DM, HTN, pacer, chronic LLE weakness after having a procedure 2019, spinal stimulator (not active), neuropathy.
Wound Location and type/assessment: Patient admitted with: L lateral forefoot broken blister that undermines to L plantar 5th MTH, skin macerated some, small cárdenas cloudy drainage. L 5th toe with some purple decolorization. Toe warm. LLE with diffuse
erythema mainly on L dorsal foot, redness improved LLE as per patient. R upper posterior heel/Achilles blanchable red. Pedal pulses heard via portable Doppler (R pedal faint).
Appetite: poor.
Pressure redistribution devices in place: Centrella Pro bed. Patient can turn self in bed.
Plan: Dressing changed on L lateral/plantar foot. Heels off bed with pillow. Instructed patient to avoid placing pressure on his L forefoot. Addison texted Dr. Archer update, requested local care and LE arterial Doppler orders; requested podiatry consult
to evaluate and recommend foot wear/any weight bearing restrictions.
Will confirm orders with hospitalist and update nurse.
Updated care plan and will follow as needed. Recommend follow up with implant coordinator.
[2025-01-30] MEDS: ZESTRIL 20 MG PO ×2 (10:12→20:20)
[2025-01-30 12:09] LABS: Glucose - Point of Care 234 mg/dl (70-99)
[2025-01-30] MEDS: METAMUCIL, KONSYL PO ×2 (12:14→20:19)
[2025-01-30] MEDS: MORPHINE SULFATE 4 MG IV ×2 (15:17→20:20)
[2025-01-30 16:36] LABS: Glucose - Point of Care 279 mg/dl (70-99)
[2025-01-30] MEDS: XARELTO 20 MG PO (17:11)
[2025-01-30] MEDS: NOVOLOG FLEXPEN-LOW RESISTANCE 3 UNITS SC (17:13)
--- NOTE | 2025-01-30 17:58 | WOUNDNOTE ---
[facility] RN note: mona ugarte Dr[address] Do re: patient's arterial Doppler result is in and asked hospitalist to review and consider vascular consult.
[2025-01-30 21:20] LABS: Glucose - Point of Care 327 mg/dl (70-99)
[2025-01-30] MEDS: LANTUS 0.12 UNITS SC (22:12)
[2025-01-31 03:00] VITALS: BP 113/70
[2025-01-31] MEDS: ZOSYN 50 IV (03:02)
[2025-01-31 07:00] VITALS: BP 138/78
[2025-01-31 07:34] LABS: Hematocrit 29.5 % (39.0-52.0); Hemoglobin 10.0 g/dL (13.0-18.0); Mean Corp Hgb Conc. 33.9 g/dL (33.0-37.0); Mean Corpuscular Volume 88.6 fL (80.0-94.0); Platelet Count 295 10^3/uL (130-400); Red Cell Dist. Width 14.2 % (11.5-14.5)
[2025-01-31 07:44] LABS: Glucose - Point of Care 325 mg/dl (70-99)
--- NOTE | 2025-01-31 08:13 | CON.MD ---
Consultation - Medical
-
Chief Complaint:
Left foot and leg cellulitis
History of Present Illness:
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 He states that this began initially when he developed a blister after wearing ill fitting boat shoes. He
subsequently applied triple antibiotic ointment to the site but began to notice some erythema a the site of the blister/ callus and on the dorsal aspect of the fifth metatarsal over the past few weeks. The localized redness then progressed to
generalized erythema and lymphangitis on the medial aspect of his leg extending to the mid thigh over the past 4 days. He states he began ciprofloxacin then yesterday developed rigors & dry heaves in between taking Advil and Tylenol. He has
history of paroxysmal A-fib is on Xarelto. He did take his a.m. medications this morning except diabetic meds due to nausea his current sugar is 115.
He has past medical history DM 2, HTN, HLD, permanent A-fib, permanent pacemaker cardiac pauses 2021, chronic left leg weakness due to back injury during procedure 2019, spinal stimulator
Past Medical History
Past Medical History: Reports Other
Additional Past Medical History:
DM 2
HTN,
HLD
permanent A-fib on Xarelto
permanent pacemaker cardiac pauses 2021
chronic left leg weakness due to back injury during procedure 2019
spinal stimulator not active
Past Surgical History:
spinal stimulator not active
Permanent pacemaker 2021
Bilateral knee arthroscopy
Lumbar laminectomy
Lumbar procedure unknown type XX 20 leaving patient with left leg weakness, numbness
Trigger finger release bilateral hands
Social History
Tobacco: Non-smoker
Alcohol: None
Drug: None
Personal:
Living: With Family ( Aline)
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
Family History
Not pertinent
Allergies
Allergy/AdvReac Type Severity Reaction Status Date / Time
No Known Allergies Allergy Verified 09/21/21 09:39
Home Medications
insulin aspart U-100 100 unit/mL subcutaneous solution (Novolog U-100 Insulin aspart) 4 - 14 units SC AC Diabetes 09/07/21
lovastatin 40 mg tablet 40 mg PO HS High cholesterol 09/07/21
hydrochlorothiazide 50 mg tablet 50 mg PO DAILY Blood Pressure 09/21/21
lisinopril 20 mg tablet 20 mg PO BID Blood pressure 09/21/21
metformin 1,000 mg tablet 1,000 mg PO BID@0800,1700 Diabetes ##0 12/02/21
Lactobacil.acidophilus-Bifido.animalis 5 billion cell sprinkle capsule (Probiotic) 1 cap PO DAILY Gastrointestinal Issue 01/28/25
hydralazine 25 mg tablet 25 mg PO BID Blood Pressure 01/28/25
insulin degludec 100 unit/mL (3 mL) subcutaneous pen 24 unit SC HS Diabetes 01/28/25
metoprolol succinate 25 mg tablet,extended release 24 hr 25 mg PO BID Blood Pressure 01/28/25
psyllium 1 packet PO BID Constipation 01/28/25
rivaroxaban 20 mg tablet (Xarelto) 20 mg PO QPM Blood clot prevention/tx 01/28/25
Physical Exam:
Pulses weakly palpable, generalized brawny edema, loss of pedal hair and atrophic changes to toes. There is cellulitis that arises from the submet 5 area where a callus is present. The erythema streaks to the lateral and dorsal foot. It appears
to have receded somewhat from the original demarcation. Beneath the callus is a superficial granular wound that measures 0.8 cm in diameter. It does not probe, undermine or track. No purulence expressed but there is some fluctuance along the
lateral 5th mpj area.
A bedside I&D was performed and approximately 3 cc's of purulent drainage was expressed from the lateral aspect of the 5th metatarsal head area.
Assessment:
Left foot Diabetic foot infection - abscess with cellulitis. Possible osteomyelitis 5th MPJ
IDDM
neuropathy
PAD
Plan:
He is evaluated at bedside. Chart, labs, x-rays and vascular studies reviewed
A bedside I&D was performed and purulence was drained from the site.
I am concerned that he may have an underlying osteomyelitis given the length of length that has passed since the original callus/blister appeared. Unfortunately he cannot have an MRI due to pacemaker/spinal stimulator.
I discussed bone biopsy/washout in the OR with him to rule out osteomyelitis.
I recommend ID consult
I also recommend vascular consult
Offload heels in bed, foot is bandaged- re-enforce as needed
He may use an orthowedge shoe and heel weightbear with walker assistance.
--- NOTE | 2025-01-31 08:50 | W.PN.HOSP.TC ---
Today's Communication/Plan
-
see bold
Assessment / Plan
Assessment / Plan
HPI: 79-year-old male past medical history of permanent atrial fibrillation on Xarelto, hyperlipidemia, hypertension, diabetes, presenting with left fifth metatarsal callus/tenderness with redness, swelling progressing up the leg. He expressed pus
from the callus 3 weeks ago and put antibiotic on it. Labs show leukocytosis. Foot x-ray shows mild soft tissue swelling of the lateral forefoot. Patient septic secondary to left foot cellulitis with lymphangitis. �IV fluids, blood cultures, check
MRSA, vancomycin and Zosyn. �Hold blood pressure medications for now.
#Sepsis 2/2 to Diabetic left foot cellulitis w/ lymphangitis
#Chronic left leg weakness due to back injury during procedure 2019
Unable to have MRI due to spinal stimulator not active
Wound culture growing MRSA
Appreciate ID input, antibiotics changed to vancomycin
Appreciate podiatry input, status post bedside I&D of L foot abscess 01/31
Podiatry recommends bone biopsy, offloading heels in bed, may use an orthowedge shoe and heel weightbear with walker assistance
#Peripheral artery disease
Appreciate vascular surgery input, plan for CTA with left lower extremity runoff tomorrow and left lower extremity angiogram Sunday 02/04
#DM 2
Hemoglobin A1c 7.1
Continue metformin 1000 mg daily, resumed basal insulin at reduced dose of 18 units at bedtime, patient takes 24 at home
Increase Premeal insulin 6 units AC 3 times daily
Accu-Cheks with SSI low
#Essential hypertension
Blood pressure soft upon admission
Continue metoprolol 25 mg twice daily for rate control with hold parameters
Blood pressure rising, resumed lisinopril 20 mg daily, resume hydralazine 25 mg BID, resume HCTZ 50 mg daily with hold parameters
Can stop IV fluids
#Constipation
Patient currently refusing laxatives, they are ordered as needed
#A-fib�permanent
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
-Continue metoprolol 25 mg twice daily for rate control with hold parameters
-Continue Xarelto- plan to hold 02/03. Patient follows with Dr. Munoz
#HLD
-Continue lovastatin 40 mg at bedtime
#Obesity due to excess calories
- Affects all aspects of care
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
Full code
Updated son at bedside 01/31
Total time spent to see the patient on the floor, examine the patient, review data and lab results, discuss treatment plan with patient, nursing staff around 53 minutes.
Physical Exam
General: Obese, no acute distress
HEENT: Normocephalic, Atraumatic, EOMI, MMM
Respiratory: Clear to Auscultation bilaterally
Cardiac: Normal S1/S2, Regular Rate and Rhythm
GI: Soft, Nontender, Nondistended, Normal Bowel Sounds
Extremities: No Clubbing, Cyanosis
Left foot with scattered erythema, improving erythema of the calf
Neuro: Nonfocal/Grossly Intact
Psych: Calm, Cooperative
Anticipated Discharge: > 48 hours
Subjective/Interval History
-
Date of Service: January 30, 2025
Patient reports intermittent left foot pain. Denies chest pain, denies shortness of breath. No fever, no vomiting.
Objective Data
-
Labs:
Laboratory Results
01/30/25
03:39
WBC 19.6 H
Hgb 9.9 L
Hct 29.1 L
Plt Count 272
Vital Signs:
Vital Signs
Temp Pulse Resp BP Pulse Ox
98.5 F 100 20 152/78 94
01/30/25 11:55 01/30/25 11:55 01/30/25 11:55 01/30/25 11:55 01/30/25 11:55
I&O
01/29/25 01/30/2525
06:59 06:59 06:59
Intake Total 1500 / 1500 2405 / 2405
Output Total 800 / 800 710 / 710
Balance 700 / 700 1695 / 1695
[2025-01-31] MEDS: GLUCOPHAGE 1000 MG PO ×2 (09:36→18:03)
[2025-01-31] MEDS: TOPROL XL 25 MG PO ×2 (09:37→22:15)
[2025-01-31] MEDS: ZESTRIL 20 MG PO (09:37)
[2025-01-31] MEDS: NOVOLOG FLEXPEN SC ×2 (09:38→09:56)
[2025-01-31] MEDS: NOVOLOG FLEXPEN-LOW RESISTANCE 4 UNITS SC (09:39)
[2025-01-31] MEDS: METAMUCIL, KONSYL PO (09:39)
[2025-01-31] MEDS: ANCEF 5 IV (09:40)
--- NOTE | 2025-01-31 09:46 | CON.VAS ---
Addendum entered and electronically signed by Mathew Gonzalez III, MD 01/31/25 14:41:
This patient was seen and examined in collaboration with CAPRICE Ventura. I agree with the history and physical exam as well as the assessment and plan. I have the following additions:
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
Left foot cellulitis
Multiple medical comorbidities including longstanding diabetes
Nonpalpable pedal pulses
Lower extremity arterial studies are abnormal
My recommendation is for left lower extremity arteriogram. The technical aspects of this procedure were discussed with the patient, his son and his . The benefits and rationale for this approach were discussed with all of them in detail.
Operative risks were discussed with all of them in detail including but not limited to arterial access site injury, bleeding, infection, contrast nephropathy, distal embolization and the inability to successfully complete endovascular intervention
which may require additional procedures. He expressed a clear understanding of our conversation and agrees to proceed with surgery as detailed above.
.
Signed:
Mathew Gonzalez III, MD
Vascular Surgery
[facility]
Original Note:
Consultation
Consultation Request
Date/Time Consultation Performed: 01/31/25 8am
Performing Provider: Carlos
Reason for Consultation: Left foot wound
Medical History
-
Chief Complaint: Left foot redness
History of Present Illness:
79 yo male with PMH significant for DM 2, HTN, HLD, permanent A-fib, permanent pacemaker cardiac pauses 2021, chronic left leg weakness due to back injury during procedure 2019, spinal stimulator admitted through the ER on 01/28 with LLE cellulitis.
Pt states a few weeks ago he noted a blister form on the plantar aspect of his fifth metatarsal near a callus from poorly fitting shoes. He 'expressed pus' from it a few weeks ago and applied antibiotic ointment. Following that he has a few weeks of
redness/erythema that progressed over the last four days which lead to this admission.
Vascular consult for nonhealing wound/PAD evaluation. Pt seen at bedside this am with son present. Podiatry saw pt this am and did a bedside I&D.
Past Medical History
Past Medical History: Arrhythmias (afib- on xarelto), HTN, IDDM and Other (hyperlipidemia, chronic left leg weakness due to back injury during procedure 2019)
Past Surgical History: Cardiac (Permanent pacemaker 2021) and Orthopedic (Bilateral knee arthroscopy, Lumbar laminectomy, Lumbar procedure unknown type XX 20 leaving patient with left leg weakness, numbness, Trigger finger release bilateral hands)
Social History
Tobacco: Non-Smoker
Alcohol: None
Drug: None
Personal:
Living: With Family
Employment: Employed
Family History
Family History: Reviewed & Not Pertinent
Allergies / Home Medications
Allergy/AdvReac Type Severity Reaction Status Date / Time
No Known Allergies Allergy Verified 09/21/21 09:39
�Medication �Instructions �Recorded �Confirmed �Type
insulin aspart U-100 100 unit/mL 4 - 14 units SC AC Diabetes 09/07/21 01/28/25 History
subcutaneous solution (Novolog
U-100 Insulin aspart)
lovastatin 40 mg tablet 40 mg PO HS High cholesterol 09/07/21 01/28/25 History
hydrochlorothiazide 50 mg tablet 50 mg PO DAILY Blood Pressure 09/21/21 01/28/25 History
lisinopril 20 mg tablet 20 mg PO BID Blood pressure 09/21/21 01/28/25 History
metformin 1,000 mg tablet 1,000 mg PO BID@0800,1700 Diabetes 12/02/21 01/28/25 Rx
##0
Lactobacil.acidophilus-Bifido.animalis 1 cap PO DAILY Gastrointestinal 01/28/25 01/28/25 History
5 billion cell sprinkle capsule Issue
(Probiotic)
hydralazine 25 mg tablet 25 mg PO BID Blood Pressure 01/28/25 01/28/25 History
insulin degludec 100 unit/mL (3 24 unit SC HS Diabetes 01/28/25 01/28/25 History
mL) subcutaneous pen
metoprolol succinate 25 mg 25 mg PO BID Blood Pressure 01/28/25 01/28/25 History
tablet,extended release 24 hr
psyllium 1 packet PO BID Constipation 01/28/25 01/28/25 History
rivaroxaban 20 mg tablet (Xarelto) 20 mg PO QPM Blood clot 01/28/25 01/28/25 History
prevention/tx
Review of Systems
-
History Source: Patient and Family
All other systems: Negative unless noted
Constitutional: Reports No Symptoms
EENT: Reports No Symptoms
Respiratory: Reports No Symptoms
Cardiac: Reports No Symptoms
Vascular: Denies Leg Pain / Claudication
Abdomen/GI: Reports No Symptoms
: Reports No Symptoms
Musculoskeletal: Reports Edema
Skin: Reports Other (LLE redness)
Neurological: Reports No Symptoms
Physical Exam
Vital Signs
Temp Pulse Resp BP Pulse Ox
98.8 F 89 19 138/78 92
01/31/25 07:00 01/31/25 07:00 01/31/25 07:00 01/31/25 09:37 01/31/25 07:00
Lab Results
01/31/25 07:13
01/29/25 04:07
Physical Exam
General: No Apparent Distress
HEENT: Normocephalic and Atraumatic
Respiratory: Non Labored Respirations
Cardiac: Negative JVD
GI: Soft and Non Tender
Musculoskeletal: No Clubbing, No Cyanosis and Edema (LLE)
Skin: Warm and Other (erythema left foot/ankle)
Neuro: Awake, Alert and Oriented
Psych: Calm
Pulses: Bilateral Femoral: +1, Left Dorsalis Pedis: Doppler and Left Posterior Tibial: Doppler
Assessment / Plan
-
79 yo male here with LLE cellulitis
Plan:
CTA runoff tomorrow
Bone biopsy per podiatry
Contiune local wound care
Likely Arteriogram Monday
Data Reviewed
-
Ultrasound: Discussed with Patient
Labs: Labs Reviewed by me
--- NOTE | 2025-01-31 10:02 | CM ---
Patient seen at bedside with son
IA completed
Dx: sepsis 2/2 diabetic L foot cellulitis
PMH: DM 2, HTN, HLD, permanent A-fib, permanent pacemaker cardiac pauses 2021, chronic left leg weakness due to back injury during procedure 2019, spinal stimulator
Patient lives with in a 2 story home, 1 step to enter, flight of steps to bedroom/bathroom, powder room on 1st floor
PLOF: independent with cane
DME: cane, walker, shower chair, glucometer
PCP: Roman Macedo
Pharmacy: [address] [facility]
PLAN; tbd, follow hospital progress, CM to follow for needs, VN
[2025-01-31 11:00] VITALS: BP 171/91
--- NOTE | 2025-01-31 11:28 | PHA.VAN.IN ---
Assessment
- Assessment
Renal Function: Appears similar to baseline (no new labs since 01/29)
Concomitant Antimicrobials: cefazolin
AUC Dosing Plan
- Dosing Variables
Dosing Weight (kg): 94
Dosing CrCl (ml/min): 69
Vd coefficient (L/kg): 0.7
- Empiric Dosing
Initial / Loading Dose: 2000mg - administration pending
Maintenance Regimen: Vanc 1000mg Q12H starting 02/01 0600
Estimated AUC (mcg*h/mL): 508
Estimated Peak (mcg*h/mL): 29.1
Estimated Trough (mcg/ml): 14.7
Estimated Half Life (H): 11.2
Will re-load patient since > 24H since last dose but patient may still have some detectable level
- Monitoring
No levels ordered at this time: consider levels in next few days
Pharmacokinetics Vancomycin I
- -
Patient Age: 79
Patient Sex: Male
Vancomycin Day #: 4 (discontinued 01/30 after 0600 dose and resumed 01/31)
Indication: Skin And Soft Tissue
Requesting Provider: Dr. Archer
Pertinent Antimicrobial Allergies:
NKDA
Height / Weight:
Height 5 ft 9 in
Actual Weight 93.7 kg
Pertinent Past Medical History: BMI ~30.5, DM 2
- Vital Signs / Lab Results
Temp Pulse Resp BP Pulse Ox
98.0 F 106 19 171/91 92
01/31/25 11:00 01/31/25 11:00 01/31/25 11:00 01/31/25 11:00 01/31/25 11:00
Lab Results - Hematology
01/28/25 01/29/25 01/30/25
12:23 04:07 03:39
WBC 26.0 H 18.3 H 19.6 H
01/31/25
07:13
WBC 19.2 H
Lab Results - Chemistry
01/28/25 01/29/25
12:23 04:07
BUN 33 H 30 H
Creatinine 1.0 1.0
Estimated Creat Clear 69 69
Albumin 4.1 3.4 L
01/28/25 01/28/25
12:23 12:30
Lactic Acid 1.8 Cancelled
Microbiology Results
01/30/25 10:04 Wound Culture - Preliminary
Foot - Left Staph aureus MRSA
Gram Stain - Preliminary
01/29/25 04:07 Blood Culture - Preliminary
Blood/Venous No Growth in 48 hours- Final report to follow
01/28/25 12:24 Blood Culture - Preliminary
Blood/Venous No Growth in 48 hours- Final report to follow
01/28/25 17:44 MRSA Screen - Final
Nose No Methicillin Resistant Staphylococcus aureus isolated.
[2025-01-31] MEDS: MORPHINE SULFATE 4 MG IV ×2 (11:30→22:00)
--- NOTE | 2025-01-31 12:01 | CON.ID ---
Consultation
-
Date/Time Consultation Requested: January 31, 2025 0912
Date/Time Consultation Performed: January 31, 2025 1200
Requesting Provider: Dr. Andra Archer
Performing Provider: Dr. Angella Maguire
Reason for Consultation: Suspected Foot osteomyelitis
Chief Complaint / Past History
Chief Complaint
Foot abscess
History of Present Illness
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
redness. He developed a callus on his left lateral foot. About 3 weeks ago he expressed pus from the callus. He put triple antibiotic ointment. He then developed progressive redness starting from the callus to the dorsum of his foot then
eventually streaked up his leg all the way to the inner groin. He took Cipro. But he developed shaking chills, subjective fever and decided to come to the hospital. His white count was 26. He was started on vancomycin and Zosyn. He was seen by
podiatry today who drained the pus and she was concerned about underlying osteomyelitis. However patient unable to go for MRI due to the presence of spinal stimulator. Arterial duplex shows peripheral artery disease. Today he states that the
redness is receding from his leg. No history of diabetic foot in the past.
Past History
Additional Past Medical History:
Diabetes mellitus type 2
Hypertension
Atrial fibrillation on Xarelto
pacemaker placement
Chronic pain with spinal stimulator, not active
Chronic left leg weakness due to history of back injury during lumbar procedure 2019
Lumbar laminectomy
Allergy History:
No Known Allergies Allergy (Verified 09/21/21 09:39)
Medications Reviewed: Yes
Current Antibiotics:
Vancomycin
Cefazolin
Social History
Tobacco: Non-Smoker
Alcohol: None
Drug: None
Personal:
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
Family History
Family History: Not Pertinent
Review of Systems
Review of Systems
General: Fever, Chills and Change in Appetite
HEENT: Negative Sinus Problems or Headache
Cardiovascular: Negative Chest Pain or Dyspnea
Respiratory: Negative Dyspnea or Cough
Gasteroenterology: Nausea; Negative Vomiting or Diarrhea
Genital / Urological: Negative Dysuria
Endocrine: Weakness
All systems: All other systems were reviewed and were negative
Vital Signs
Temp Pulse Resp BP Pulse Ox
98.0 F 106 19 171/91 92
01/31/25 11:00 01/31/25 11:00 01/31/25 11:00 01/31/25 11:00 01/31/25 11:00
Physical Exam
Physical Exam
Constitutional: No Acute Distress and Comfortable
Eyes: No Conjunctival Hemorrhage and Sclera Anicteric
Cardiovascular: Regular Rate, S1/S2 and Other (LCW PPM site no erythema)
Pulmonary: Clear
Gastrointestinal: Soft, Non Tender, Non Distended and Normal Bowel Sounds
Genito-Urinary: Negative CVA Tenderness
Extremities: Edema (LLE) and Erythema (LLE dorsum of foot to coughlin; receding from marked line)
Wound: Other (Left 5TH MT bandage with purulent strike through)
Neurological: AO x 3
Lab / Diagnostic Study Results
01/31/25 07:13
01/29/25 04:07
Abs Immat Gran (auto) 0.1 10^3/uL (0-0.05) H 01/29/25 04:07
Absolute Neuts (auto) 15.2 10^3/uL (1.4-6.5) H 01/29/25 04:07
Absolute Lymphs (auto) 1.3 10^3/uL (1.2-3.4) 01/29/25 04:07
Absolute Monos (auto) 1.5 10^3/uL (0.1-0.6) H 01/29/25 04:07
Absolute Basos (auto) 0.1 10^3/uL (0-0.2) 01/29/25 04:07
Immature Gran % 0.5 % (0-0.5) 01/29/25 04:07
Neutrophils % 83.1 % (42.2-75.2) H 01/29/25 04:07
Lymphocytes % 7.2 % (20.5-51.1) L 01/29/25 04:07
Monocytes % 8.4 % (1.7-9.3) 01/29/25 04:07
Eosinophils % 0.4 % (0-6) 01/29/25 04:07
Basophils % 0.4 % (0-2) 01/29/25 04:07
ESR 78 mm/hour (0-20) H 01/28/25 12:23
Lactic Acid Cancelled 01/28/25 12:30
C-Reactive Protein 228.10 mg/L (0.0-10.00) H 01/28/25 12:23
Microbiology Results
Micro:
01/31/25 09:04 Wound Culture - Pending
Foot - Left Gram Stain - Preliminary
01/30/25 10:04 Wound Culture - Preliminary
Foot - Left Staph aureus MRSA
Gram Stain - Preliminary
01/29/25 04:07 Blood Culture - Preliminary
Blood/Venous No Growth in 48 hours- Final report to follow
01/28/25 12:24 Blood Culture - Preliminary
Blood/Venous No Growth in 48 hours- Final report to follow
01/28/25 17:44 MRSA Screen - Final
Nose No Methicillin Resistant Staphylococcus aureus isolated.
01/28/25 Left foot XRAY: No acute osseous abnormality. Mild soft tissue swelling along the lateral forefoot.
Assessment / Plan
# Left 5th MT abscess; suspected underlying osteo
# Left foot cellulitis
# Leukocytosis
# New dx PAD
# DM2 with neuropathy
- Wound cx MRSA
- Pt's spine stimulator incompatible with MRI.
For CT scan.
- Bone biopsy per podiatry
- Arteriogram Monday, per Vascular
- DC cefazolin.
- Continue Vancomycin
- Trend WBC.
-Contact isolation.
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
Diabetes mellitus type 2
Hypertension
Atrial fibrillation on Xarelto
pacemaker placement
Chronic pain with spinal stimulator, not active
Chronic left leg weakness due to history of back injury during lumbar procedure 2019
Lumbar laminectomy
[2025-01-31 12:02] LABS: Glucose - Point of Care 291 mg/dl (70-99)
[2025-01-31] MEDS: VANCOCIN 540 MG IV (13:05)
[2025-01-31] MEDS: NOVOLOG FLEXPEN-LOW RESISTANCE 3 UNITS SC (13:07)
[2025-01-31] MEDS: NOVOLOG FLEXPEN 6 UNITS SC ×2 (13:08→18:02)
[2025-01-31] MEDS: ZOFRAN 4 MG IV (14:44)
[2025-01-31 15:00] VITALS: BP 163/92
[2025-01-31 16:55] LABS: Glucose - Point of Care 225 mg/dl (70-99)
[2025-01-31] MEDS: APRESOLINE 25 MG PO (17:46)
[2025-01-31] MEDS: ORETIC 50 MG PO (17:55)
[2025-01-31] MEDS: NOVOLOG FLEXPEN-LOW RESISTANCE 2 UNITS SC (17:59)
[2025-01-31 19:00] VITALS: BP 137/72
[2025-01-31] MEDS: LOPRESSOR 5 MG IV (19:10)
[2025-01-31] MEDS: XARELTO 20 MG PO (19:10)
[2025-01-31 19:20] VITALS: BP 104/62
[2025-01-31] MEDS: APRESOLINE PO (20:27)
[2025-01-31] MEDS: METAMUCIL, KONSYL 1 PACKET PO (20:28)
[2025-01-31] MEDS: ZESTRIL PO (20:44)
[2025-01-31 21:10] LABS: Glucose - Point of Care 200 mg/dl (70-99)
[2025-01-31] MEDS: LANTUS 0.18 UNITS SC (22:07)
[2025-02-01] VITALS (8 sets, daily range): BP systolic 108–186; BP diastolic 54–105
--- NOTE | 2025-02-01 04:28 | PTCARENOTE ---
Pts blood pressure at start of shift was 111/50. Held Lisinopril and hydralazine due the parameters. Rechecked blood pressure was 126/78 then gave pt Metoprolol.
[2025-02-01] MEDS: VANCOCIN 200 IV (05:41)
--- NOTE | 2025-02-01 07:31 | W.PN.POD ---
Today's Communication
Today's Communication
Left Diabetic foot infection
Assessment / Plan
-
Left foot Diabetic foot infection - abscess with cellulitis. Likely osteomyelitis 5th MPJ
IDDM
neuropathy
PAD
Plan:
The left foot I&D site is explored and copiously lavaged at bedside.
I am concerned that he may have an underlying osteomyelitis given the length of length that has passed since the original callus/blister appeared. Also, given the non viable appearance of the 5th toe/5th ray area, I discussed with him at great
length that a 5th ray amputation may be what is necessary following revascularization regardless of the presence of osteomyelitis. I will continue to monitor the soft tissues.
Appreciate ID and Vascular consults - will follow their plans
Offload heels in bed, foot is bandaged- re-enforce as needed
He may use an orthowedge shoe and heel weightbear with walker assistance.
Subjective
Chief Complaint
Left Diabetic foot infection
Subjective
Dr. Daniels is seen at bedside resting comfortably with no complaints of pain.
Objective
Temp Pulse Resp BP Pulse Ox
97.8 F 76 18 108/54 93
02/01/25 03:03 02/01/25 03:03 02/01/25 03:03 02/01/25 03:03 02/01/25 03:03
Vital Signs and Lab results were reviewed.
Physical Exam
Physical Exam
Left foot with bandages intact. Non palpable pulses, generalized edema and erythema about the dorsal foot extending to the lower leg. No real change form yesterday's exam, however the erythema has receded significantly form the original
demarcations. The 5th toe is dusky and non viable in appearance. The small stab incision is probed laterally and no purulence is expressed. It does probe to the entire dorsum of the 5th met head area. Plantar wound remains the same.
[2025-02-01 07:49] LABS: Glucose - Point of Care 197 mg/dl (70-99)
[2025-02-01] MEDS: APRESOLINE 25 MG PO (08:03)
[2025-02-01] MEDS: TOPROL XL 25 MG PO (08:03)
[2025-02-01] MEDS: ZESTRIL PO (08:03)
[2025-02-01] MEDS: GLUCOPHAGE 1000 MG PO (08:04)
[2025-02-01] MEDS: ORETIC 50 MG PO (08:04)
--- NOTE | 2025-02-01 08:50 | W.PN.HOSP.TC ---
Today's Communication/Plan
-
see bold
Assessment / Plan
Assessment / Plan
HPI: 79-year-old male past medical history of permanent atrial fibrillation on Xarelto, hyperlipidemia, hypertension, diabetes, presenting with left fifth metatarsal callus/tenderness with redness, swelling progressing up the leg. He expressed pus
from the callus 3 weeks ago and put antibiotic on it. Labs show leukocytosis. Foot x-ray shows mild soft tissue swelling of the lateral forefoot. Patient septic secondary to left foot cellulitis with lymphangitis. �IV fluids, blood cultures, check
MRSA, vancomycin and Zosyn. �Hold blood pressure medications for now.
#Sepsis 2/2 to Diabetic left foot cellulitis w/ lymphangitis
#Chronic left leg weakness due to back injury during procedure 2019
Unable to have MRI due to spinal stimulator not active
Wound culture growing MRSA
Appreciate ID input, antibiotics changed to vancomycin
Appreciate podiatry input, status post bedside I&D of L foot abscess 01/31
Podiatry recommends bone biopsy, offloading heels in bed, may use an orthowedge shoe and heel weightbear with walker assistance
#Acute kidney injury
Creatinine 3.3 today, was 1.0
He received abdominal CTA with IV contrast and runoff this morning
Suspect his creatinine will worsen
Check urine studies, monitor urine output, consult nephrology
Hold metformin, lisinopril, hydrochlorothiazide, trend creatinine, no nephrotoxic drugs or NSAIDs
#Peripheral artery disease
Appreciate vascular surgery input, had CTA with left lower extremity runoff today
Originally planned for left lower extremity angiogram Sunday 02/04, but unclear if this will happen due to his JESUS
#DM 2
Hemoglobin A1c 7.1
Hold metformin 1000 mg daily due to JESUS
Sugars improved on basal insulin at reduced dose of 20 units at bedtime, patient takes 24 at home
Started Premeal insulin 6 units AC 3 times daily
Accu-Cheks with SSI low
#Essential hypertension
Blood pressure soft upon admission, then trended up
Hold lisinopril 20 mg daily and HCTZ 50 mg daily due to JESUS
Continue hydralazine 25 mg BID and metoprolol 25 mg twice daily for rate control with hold parameters
#Constipation
Patient refusing laxatives, continue to encourage him to take it as he is taking opioids for pain and is not very mobile currently
#A-fib�permanent
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
-Continue metoprolol 25 mg twice daily for rate control with hold parameters
-Continue Xarelto- plan to hold 02/03. Patient follows with Dr. Munoz
#HLD
-Continue lovastatin 40 mg at bedtime
#Obesity due to excess calories
- Affects all aspects of care
DVT prophylaxis - CEO Xarelto - plan to hold 02/03 for angiogram 02/04
Full code
Updated son at bedside 02/01
Total time spent to see the patient on the floor, examine the patient, review data and lab results, discuss treatment plan with patient, nursing staff around 51 minutes.
Physical Exam
General: Obese, no acute distress
HEENT: Normocephalic, Atraumatic, EOMI, MMM
Respiratory: Clear to Auscultation bilaterally
Cardiac: Normal S1/S2, Regular Rate and Rhythm
GI: Soft, Nontender, Nondistended, Normal Bowel Sounds
Extremities: No Clubbing, Cyanosis
Left foot with scattered erythema, improving erythema of the calf
Neuro: Nonfocal/Grossly Intact
Psych: Calm, Cooperative
Anticipated Discharge: > 48 hours
Subjective/Interval History
-
Date of Service: February 01, 2025
Objective Data
-
Labs:
Laboratory Results
02/01/25
07:19
WBC Pending
Hgb Pending
Hct Pending
Plt Count Pending
Sodium Pending
Potassium Pending
Chloride Pending
Carbon Dioxide Pending
BUN Pending
Creatinine Pending
Glucose Pending
Calcium Pending
Vital Signs:
Vital Signs
Temp Pulse Resp BP Pulse Ox
98.0 F 87 16 124/68 95
02/01/25 07:00 02/01/25 08:04 02/01/25 07:00 02/01/25 08:04 02/01/25 07:00
I&O
01/31/25 02/01/25 02/02/25
06:59 06:59 06:59
Intake Total 960 / 960 480 / 480
Output Total 200 / 200 200 / 200
Balance 760 / 760 280 / 280
[2025-02-01 09:07] LABS: Hematocrit 30.9 % (39.0-52.0); Hemoglobin 10.1 g/dL (13.0-18.0); Mean Corp Hgb Conc. 32.7 g/dL (33.0-37.0); Mean Corpuscular Volume 92.2 fL (80.0-94.0); Platelet Count 338 10^3/uL (130-400); Red Cell Dist. Width 14.4 % (11.5-14.5)
[2025-02-01] MEDS: NOVOLOG FLEXPEN-LOW RESISTANCE 1 UNITS SC (09:30)
[2025-02-01] MEDS: NOVOLOG FLEXPEN 6 UNITS SC (09:30)
[2025-02-01] MEDS: METAMUCIL, KONSYL PO (09:33)
[2025-02-01 09:44] LABS: Blood Urea Nitrogen 53 mg/dl (9-20); Calcium 8.6 mg/dl (8.4-10.2); Carbon Dioxide 21 mmol/L (22-30); Chloride 97 mmol/L (98-107); Estimated Creatinine Clearance 21 ml/min; Glucose 169 mg/dl (70-99); Magnesium 1.6 mg/dl (1.6-2.3); Potassium 4.2 mmol/L (3.5-5.1); Sodium 132 mmol/L (135-145); eGFR 18.39
--- NOTE | 2025-02-01 10:33 | PHA.VAN.FU ---
Vancomycin Assessment / Plan
- Assessment
Renal Function: SCR Increasing
WBC's are: Trending Up
In the past 24 hrs, patient has been: Afebrile
- Dosing Plan
Adjust Regimen to: Dose by level
- Monitoring Plan
Random Level: ordered with morning labs for 02/02
- Follow Up
Pharmacy will continue to follow.
Vancomycin Follow UP
- -
Patient Age: 79
Patient Sex: Male
Vancomycin Day #: 5 (discontinued 01/30 after 0600 dose and resumed 01/31)
Indication: Skin And Soft Tissue
Requesting Provider: Dr. Archer
Pertinent Antimicrobial Allergies:
NKDA
Height / Weight:
Height 5 ft 9 in
Actual Weight 93.7 kg
Pertinent Past Medical History: BMI ~30.5, DM 2
- Vital Signs / Lab Results
Temp Pulse Resp BP Pulse Ox
98.0 F 87 16 124/68 95
02/01/25 07:00 02/01/25 08:04 02/01/25 07:00 02/01/25 08:04 02/01/25 07:00
Lab Results - Hematology
01/30/25 01/31/25 02/01/25
03:39 07:13 07:19
WBC 19.6 H 19.2 H 21.8 H
Lab Results - Chemistry
02/01/25
07:19
BUN 53 H
Creatinine 3.3 H
Estimated Creat Clear 21
Microbiology Results
01/30/25 10:04 Wound Culture - Final
Foot - Left Staph aureus MRSA
Gram Stain - Final
01/29/25 04:07 Blood Culture - Preliminary
Blood/Venous No Growth in 72 hours- Final report to follow
01/28/25 12:24 Blood Culture - Preliminary
Blood/Venous No Growth in 72 hours- Final report to follow
01/31/25 09:04 Gram Stain - Preliminary
Foot - Left
01/28/25 17:44 MRSA Screen - Final
Nose No Methicillin Resistant Staphylococcus aureus isolated.
[2025-02-01 12:02] LABS: Glucose - Point of Care 148 mg/dl (70-99)
[2025-02-01] MEDS: NOVOLOG FLEXPEN SC (12:11)
[2025-02-01] MEDS: SENOKOT-S 2 TABLET PO ×2 (12:12→22:40)
[2025-02-01] MEDS: NOVOLOG FLEXPEN-LOW RESISTANCE SC ×2 (12:36→17:36)
--- NOTE | 2025-02-01 16:19 | W.CON.NEPH ---
Consultation
-
Date/Time Consultation Requested: 02/01/25 1551
Date/Time Consultation Performed: 02/01/25 1615
Requesting Provider: Tree James DO
Performing Provider: Stephanie Lynn
Reason for Consultation: JESUS
Medical History
-
Chief Complaint: Left leg cellulitis
History of Present Illness:
79-year-old male Who has history of diabetes mellitus for 40yrs currently insulin-dependent, metformin with microvascular complications peripheral neuropathy, hypertension and takes hydrochlorothiazide, hydralazine, lisinopril, metoprolol, atrial
fibrillation rate controlled with a beta boy and anticoagulation with Xarelto, has permanent pacemaker for cardiac process in 2021, hyperlipidemia maintained on lovastatin, chronic left leg weakness due to back injury, history of spinal
stimulator who had wound on his left foot for 2 weeks, which progressively increased with expression of pus as well as erythema progressing into his leg And mid thigh hence presented to the ER on 28 January. He noted with sepsis on admission and
started on the broad-spectrum antibiotics, received IV fluids. There is a suspicion of possible osteo of left fifth metatarsal abscess. He underwent CT abd aorta angiowith runoff today which shows multifocal atherosclerosis throughout the
bilateral lower extremities. Unfortunately Labs resulted after shows his creatinine noted to be elevated at 3.3 from White count on 01/29. baseline creatinine of 0.9-1.1. patient reports no dysuria however has constipation, no bowel movement since
4-5 days but able to pass flatus. Abdominal is distended without any pain. No nausea or vomiting. Family reports decreased oral intake in the last 2 days since he is on the floor from ICU. He was receiving vancomycin, Zosyn since admission.
Past Medical History
DM 2
HTN,
HLD
permanent A-fib on Xarelto
permanent pacemaker cardiac pauses 2021
chronic left leg weakness due to back injury during procedure 2019
spinal stimulator not active
Past Surgical History: Other (spinal stimulator not active Permanent pacemaker 2021 Bilateral knee arthroscopy Lumbar laminectomy Lumbar procedure unknown type XX 20 leaving patient with left leg weakness, numbness Trigger finger release bilateral
hands)
Social History
Tobacco: Non-Smoker
Alcohol: None
Drug: None
Personal:
Living: With Family
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
Family History
no CKD
Family History: Not Pertinent
Allergies / Home Medications
Allergy/AdvReac Type Severity Reaction Status Date / Time
No Known Allergies Allergy Verified 09/21/21 09:39
�Medication �Instructions �Recorded �Confirmed �Type
insulin aspart U-100 100 unit/mL 4 - 14 units SC AC Diabetes 09/07/21 01/28/25 History
subcutaneous solution (Novolog
U-100 Insulin aspart)
lovastatin 40 mg tablet 40 mg PO HS High cholesterol 09/07/21 01/28/25 History
hydrochlorothiazide 50 mg tablet 50 mg PO DAILY Blood Pressure 09/21/21 01/28/25 History
lisinopril 20 mg tablet 20 mg PO BID Blood pressure 09/21/21 01/28/25 History
metformin 1,000 mg tablet 1,000 mg PO BID@0800,1700 Diabetes 12/02/21 01/28/25 Rx
##0
Lactobacil.acidophilus-Bifido.animalis 1 cap PO DAILY Gastrointestinal 01/28/25 01/28/25 History
5 billion cell sprinkle capsule Issue
(Probiotic)
hydralazine 25 mg tablet 25 mg PO BID Blood Pressure 01/28/25 01/28/25 History
insulin degludec 100 unit/mL (3 24 unit SC HS Diabetes 01/28/25 01/28/25 History
mL) subcutaneous pen
metoprolol succinate 25 mg 25 mg PO BID Blood Pressure 01/28/25 01/28/25 History
tablet,extended release 24 hr
psyllium 1 packet PO BID Constipation 01/28/25 01/28/25 History
rivaroxaban 20 mg tablet (Xarelto) 20 mg PO QPM Blood clot 01/28/25 01/28/25 History
prevention/tx
Review of Systems
-
All other systems: Negative unless noted
Physical Exam
Vital Signs
Vital Signs
Temp Pulse Resp BP Pulse Ox
97.8 F 87 16 142/76 95
02/01/25 15:37 02/01/25 15:37 02/01/25 15:37 02/01/25 15:37 02/01/25 15:37
Lab Results
WBC 21.8 10^3/uL (4.8-10.8) H 02/01/25 07:19
RBC 3.35 10^6/uL (4.70-6.10) L 02/01/25 07:19
Hgb 10.1 g/dL (13.0-18.0) L 02/01/25 07:19
Hct 30.9 % (39.0-52.0) L 02/01/25 07:19
Plt Count 338 10^3/uL (130-400) 02/01/25 07:19
eGFR 18.39 02/01/25 07:19
Albumin 3.4 g/dl (3.5-5.0) L 01/29/25 04:07
Abnormal Lab Results
01/31/25 02/01/25 02/01/25
21:09 07:19 07:47
WBC 21.8 H
RBC 3.35 L
Hgb 10.1 L
Hct 30.9 L
MCHC 32.7 L
Sodium 132 L
Chloride 97 L
Carbon Dioxide 21 L
BUN 53 H
Creatinine 3.3 H
Glucose 169 H
POC Glucose 200 H 197 H
02/01/25 02/01/25 02/01/25
12:01 16:06 17:34
WBC
RBC
Hgb
Hct
MCHC
Sodium 132 L
Chloride 96 L
Carbon Dioxide 18 L
BUN 58 H
Creatinine 3.9 H
Glucose 105 H
POC Glucose 148 H 106 H
Physical Exam
General: Awake, Alert, Oriented, AOx3, No Distress and Nontoxic
HEENT: EOMI, Anicteric, Conjunctivae Clear, Facial Symmetry and No JVD
Respiratory: Clear, Normal Excursion and Nonlabored Respirations
Cardiac: S1/S2 and Regular Rate/Rhythm
Breast: Deferred by me
Abdomen: Soft, Nontender and Other (Mild distention)
Musculoskeletal: Other ( left leg edema 1+, dressing intact left foot)
Skin: Other ( erythema improving left leg)
Neuro: Nonfocal/Grossly Intact
Psych: Appropriate
Data Reviewed
-
Labs: Labs Reviewed by me, Discussed with Patient and Discussed with Family
Assessment/Plan
-
IMP:
Sepsis 2/2 to Diabetic left foot cellulitis w/ lymphangitis
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
Acute kidney injury-baseline cr 0.9-1.1
Peripheral artery disease
hyponatremia
IDDM 2
Essential hypertension
Constipation
A-fib�permanent
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
HLD
Obesity due to excess calories
Plan:
A/w left leg cellulitis and sepsis
JESUS-cr increase from 1 on 01/29 to 3.3 this am, no labs were done in between
check UA, Fena, U eosinophils
suspect AIN vs ATN in differential
now that he has contrast exposure this morning need careful monitoring of the labs and urine output
recheck labs and creatinine elevated Place Gonzalez catheter
No emergent indication of dialysis , Will try gentle IV fluids
blood pressure stable without significant hypotension
Agree with avoiding nephrotoxins and holding HCTZ, lisinopril, metformin
Antibiotics per infectious disease, also check vancomycin level
Adjust all medications for change in GFR
follow mild hyponatremia
Discussed with the patient, family at bedside, discussed with the primary
CT results noted to have patent renal arteries.
[2025-02-01 16:56] LABS: Blood Urea Nitrogen 58 mg/dl (9-20); Calcium 9.0 mg/dl (8.4-10.2); Carbon Dioxide 18 mmol/L (22-30); Chloride 96 mmol/L (98-107); Estimated Creatinine Clearance 18 ml/min; Glucose 105 mg/dl (70-99); Potassium 4.6 mmol/L (3.5-5.1); Sodium 132 mmol/L (135-145); eGFR 15.05
[2025-02-01 17:35] LABS: Glucose - Point of Care 106 mg/dl (70-99)
[2025-02-01] MEDS: XARELTO 20 MG PO (17:36)
--- NOTE | 2025-02-01 17:48 | PTCARENOTE ---
Order for Indwelling Parikh Catheter was placed for acute kidney injury. 16 Frisian parikh was inserted and connected to drainage bag with one attempt and stat lock placed to right thigh. Pt tolerated well, will continue to assess.
[2025-02-01] MEDS: NOVOLOG FLEXPEN 3 UNITS SC (18:24)
--- NOTE | 2025-02-01 19:13 | PTCARENOTE ---
Addendum entered by Kourtney Chavez RN 02/01/25 20:14:
At 1945pm, patient appears to be more calm, breathing appears improved. and son are at bedside. Will monitor.
Original Note:
Call cervantes on, patient ringing for c/o SOB/ROYAL and CP. VS obtained -- 97.5F, HR 120-130s on monitor, BP 180/102, RR 22, oxgen sats 95% on room air. EKG obtained -- AFib with RVR, Right BBBC. Patient at this time also c/o nausea, occasional, moist AMBULANCE OPERATIONS SUPERVISOR
cough (for last 3 days per ), audible wheezing present but lung sounds diminished but clear sounding at this time. AMBULANCE OPERATIONS SUPERVISOR notified and came to assess patient right away. Spoke with family regarding concers. Of note, parikh catheter recently inserted
during dayshift, still with very little output, yue in color in drainage bag. Attempting to send ordered urine studies. Patient also without BM since Monday -- has been refusing bowel regimen mostly since admission -- taking Colace today.
Patient's states she made him drink approx 2 cups of water around time of parikh insertion, and patient attempted to eat some of dinner meal at this time and could not tolerate it. He states he has no appetite.
One time 5mg IV lopressor provided to patient per AMBULANCE OPERATIONS SUPERVISOR orders, see MAR. Also requested to hold oral cardiac medications at this time. Robitussin also provided per AMBULANCE OPERATIONS SUPERVISOR order and request. Patient placed on 2LNC per AMBULANCE OPERATIONS SUPERVISOR request at 1925pm. CXR ordered and
obtained at bedside. COVID and FLU ordered -- sent to lab. Respiratory notified of DuoNeb and provided to patient. Labs ordered -- awaiting VAT team RN to provide new IV access, current site leaking and starting to burn per patient -- will obtain
labs during placement of IV. Call cervantes in reach, will closely monitor patient.
[2025-02-01] MEDS: LOPRESSOR 5 MG IV (19:31)
--- NOTE | 2025-02-01 19:31 | W.PN.UPDATE ---
Update Note
Progress Note Update
-Patient is complaining of sob. Per patient, he had some chest tightness earlier but currently no chest pain. Patient is tachypneic.
-Temp 97.5, hr 120s-130s, bp 180/102, 95% RA. EKG with A-fib.
-Diminished lung sound on the exam.
-One time dose of IV Lopressor 5mg. Duo nebs for SOB. Robitussin DM.
-Stat chest x-ray. Covid, flu, cbc, bmp, mag, BNP, troponin.
Covid &flu (neg)
Chest x-ray shows Hazy increased density over the left lower hemithorax, probably mainly due to a posteriorly layering pleural effusion.
Stable elevation right hemidiaphragm.
Patchy parenchymal opacity within the right lower lung and the left mid to lower lung, most likely atelectasis, although pneumonia difficult to exclude.
Troponin 0.538 will trend troponin and monitoring EKG.
Pro BNP 99210, no previous result.
Cardiology consult placed
Cr is 4.3, and no urine output.
carbon dioxide 13.
-Discussed with the network support specialist lubrication equipment servicer and okay to give Lasix. One time order of 40mg IV Lasix and ok to give extra dose if needed.
-IR consult placed for temporary HD catheter in am.
- Bicarb IV push
-IMU transfer.
-Vbg ordered.
- updated with changes in condition and current plan including temporary dialysis in am.
[2025-02-01] MEDS: ROBITUSSIN DM 10 ML PO (19:47)
[2025-02-01] MEDS: DUONEB 3 ML INH (19:56)
[2025-02-01] MEDS: TOPROL XL PO (19:57)
[2025-02-01 20:07] LABS: COVID-19 Antigen Negative (Negative)
[2025-02-01 20:32] LABS: Hematocrit 34.9 % (39.0-52.0); Hemoglobin 11.5 g/dL (13.0-18.0); Mean Corp Hgb Conc. 33.0 g/dL (33.0-37.0); Mean Corpuscular Volume 91.1 fL (80.0-94.0); Platelet Count 447 10^3/uL (130-400); Red Cell Dist. Width 14.6 % (11.5-14.5)
[2025-02-01 20:56] LABS: Troponin I 0.528 ng/ml
[2025-02-01 21:15] LABS: Glucose - Point of Care 101 mg/dl (70-99)
--- NOTE | 2025-02-01 22:30 | PTCARENOTE ---
Bedtime fingerstick glucose 101 - patient due for scheduled 20 units Lantus. CYBER POLICY AND STRATEGY PLANNER notified - request to hold 20 unit dose, order placed for 5 units Lantus to be given. Provided to patient.
[2025-02-01] MEDS: METAMUCIL, KONSYL 1 PACKET PO (22:41)
[2025-02-01] MEDS: LANTUS 0.05 UNITS SC (22:41)
[2025-02-01 22:47] LABS: ALT (SGPT) < 10 U/L (0-50); AST (SGOT) 27 U/L (17-59); Albumin 3.6 g/dl (3.5-5.0); Alkaline Phosphatase 184 U/L (38-126); Blood Urea Nitrogen 66 mg/dl (9-20); Calcium 9.1 mg/dl (8.4-10.2); Carbon Dioxide 13 mmol/L (22-30); Chloride 94 mmol/L (98-107); Estimated Creatinine Clearance 16 ml/min; Glucose 90 mg/dl (70-99); Magnesium 1.7 mg/dl (1.6-2.3); Potassium 5.3 mmol/L (3.5-5.1); Sodium 130 mmol/L (135-145); Total Protein 6.7 g/dl (6.3-8.2); eGFR 13.38
[2025-02-01] MEDS: LASIX 40 MG IV (23:08)
--- NOTE | 2025-02-01 23:17 | W.PN.UPDATE ---
Update Note
Progress Note Update
noted events
worsening renal function and no UOP
worsening met acidosis
sob and cp
ok to fransisco rossi , extra dos eif needed
h dang will need HD tomorrow if no response
spoke to the boo stone and agrees with HD
have IR place temp hd catheter
updated hospitqlist team
agree to johnathan irelande to IMU
will try bicarb puahes to help with acidosi
[2025-02-01] MEDS: SODIUM BICARBONATE 50 MEQ IV (23:25)
--- NOTE | 2025-02-01 23:47 | PTCARENOTE ---
This RN concerned about left arm swelling. IV lasix and IV sodium bicarb ordered to be given. Good blood return, IV flushing well. TOLL BRIDGE ATTENDANT on unit, assessed arm, no new orders. VAT RN present, this RN and VAT RN measured arm circumferences. Left upper
arm 38cm, left forearm 29cm. Right upper arm circumference 33cm, right forearm 29cm. No further intervention at this time. Will continue to monitor.
[2025-02-02] VITALS (39 sets, daily range): BP systolic 85–158; BP diastolic 47–92; BMI 32.4
--- NOTE | 2025-02-02 00:50 | TRANSFER ---
Report called to receiving IMU nurse for patient transfer to room 3344. Patient , daughter and son arrived at bedside and will transfer to unit with patient. Placed on portable monitor for transfer, still AFib on monitor at this time.
Transported on 2LNC. Patient alert and oriented, aware of plan of care to this point.
[2025-02-02] MEDS: ROXICODONE 5 MG PO (01:27)
[2025-02-02 01:36] LABS: Glucose - Point of Care 88 mg/dl (70-99)
--- NOTE | 2025-02-02 01:47 | PTCARENOTE ---
received patient as transfer from [facility]. Patient on 2L NC sating at 97%. BP 132/71. Afib on monitor HR 110-120s. Patient family at bedside. Patient complaining of pain throughout body and asked for pain medication, see MAR. call cervantes in reach.
[2025-02-02] MEDS: ZOFRAN 4 MG IV (02:23)
[2025-02-02 03:35] LABS: Venous Blood Gas B.E. -17.8 mmol/L (-4 to +4); Venous Blood Gas O2 Sat % 93.8 %
[2025-02-02 03:48] LABS: Hematocrit 35.7 % (39.0-52.0); Hemoglobin 11.7 g/dL (13.0-18.0); Mean Corp Hgb Conc. 32.8 g/dL (33.0-37.0); Mean Corpuscular Volume 91.5 fL (80.0-94.0); Platelet Count 428 10^3/uL (130-400); Red Cell Dist. Width 14.7 % (11.5-14.5)
[2025-02-02 04:13] LABS: Blood Urea Nitrogen 66 mg/dl (9-20); Calcium 8.8 mg/dl (8.4-10.2); Carbon Dioxide 7 mmol/L (22-30); Chloride 95 mmol/L (98-107); Estimated Creatinine Clearance 15 ml/min; Glucose 79 mg/dl (70-99); Potassium 5.0 mmol/L (3.5-5.1); Sodium 134 mmol/L (135-145); eGFR 12.03
[2025-02-02] MEDS: SODIUM BICARBONATE 50 MEQ IV ×4 (04:25→22:41)
[2025-02-02 04:29] LABS: Troponin I 0.358 ng/ml
--- NOTE | 2025-02-02 05:32 | PTCARENOTE ---
patient's Ph resulted as 7.09, carbon dioxide as 7 and creatine as 4.7. UX SPECIALIST made aware. New orders placed. UX SPECIALIST at bedside to assess patient. Continuing to monitor patient, care ongoing.
[2025-02-02 06:41] LABS: Blood Urea Nitrogen 69 mg/dl (9-20); Calcium 8.5 mg/dl (8.4-10.2); Carbon Dioxide 7 mmol/L (22-30); Chloride 96 mmol/L (98-107); Estimated Creatinine Clearance 14 ml/min; Glucose 74 mg/dl (70-99); Potassium 5.2 mmol/L (3.5-5.1); Sodium 135 mmol/L (135-145); eGFR 11.44
[2025-02-02 06:52] LABS: Nucleated Red Blood Cells % 0 % (-)
--- NOTE | 2025-02-02 08:25 | PTCARENOTE ---
IR at bedside to place HD cath
--- NOTE | 2025-02-02 08:41 | PN.IRAD.UPD ---
Update Note - IRAD
- -
Necklace and jerry removed before Temp HD line placed bedside. Necklace given to Judy (HD RN) to hand directly to family when they returned to the room.
--- NOTE | 2025-02-02 08:43 | W.PN.NEPH.PH ---
Today's Communication / Plan
-
HD today
Assessment/Plan
-
IMP:
Sepsis 2/2 to Diabetic left foot cellulitis w/ lymphangitis
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
Acute kidney injury-baseline cr 0.9-1.1
Peripheral artery disease
hyponatremia
IDDM 2
Essential hypertension
Constipation
A-fib�permanent
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
HLD
Obesity due to excess calories
Plan:
A/w left leg cellulitis and sepsis
JESUS-cr increase peak at 4.9 and anuric
worsening A gap met acidosis, check L acid
no urine studies done with anuria
CT results 02/01 noted to have patent renal arteries.
acidemia Ph of 7.09-s/p IV bicarb pushes
suspect AIN vs ATN+YOVANY , vanc level 26
will start HD today
IR already placed HD catheter, apt help
blood pressure stable without significant hypotension
Avoid nephrotoxins and holding HCTZ, lisinopril, metformin
Antibiotics per infectious disease
Adjust all medications for change in GFR
Discussed with the patient, family at bedside, discussed with the primary
d/w nursing
CC time spent 40min
-
-
Date of Service: February 02, 2025
CC / HPI / ROS
-
Chief Complaint:
JESUS
History of Present Illness:
cr peak at 4.9, anuria with parikh
k 5.2, bicarb low 7 s/p 2 bicarb amps
VBG PH 7
moved to IMU overnight for SOB
Review of Systems:
still no BM with constipation
sob slightly better sine in IMU
no n/v
Labs
-
Labs:
WBC 31.8 10^3/uL (4.8-10.8) H 02/02/25 03:23
RBC 3.90 10^6/uL (4.70-6.10) L 02/02/25 03:23
Hgb 11.7 g/dL (13.0-18.0) L 02/02/25 03:23
Hct 35.7 % (39.0-52.0) L 02/02/25 03:23
Plt Count 428 10^3/uL (130-400) H 02/02/25 03:23
Sodium 135 mmol/L (135-145) 02/02/25 06:03
Potassium 5.2 mmol/L (3.5-5.1) H 02/02/25 06:03
Chloride 96 mmol/L (98-107) L 02/02/25 06:03
Carbon Dioxide 7 mmol/L (22-30) L* 02/02/25 06:03
BUN 69 mg/dl (9-20) H 02/02/25 06:03
Creatinine 4.9 mg/dL (0.7-1.3) H* 02/02/25 06:03
eGFR 11.44 02/02/25 06:03
Glucose 74 mg/dl (70-99) 02/02/25 06:03
Calcium 8.5 mg/dl (8.4-10.2) 02/02/25 06:03
Act-A-Beplxdgenva Pept > 11438 pg/ml 02/01/25 20:16
Albumin 3.6 g/dl (3.5-5.0) 02/01/25 22:00
Physical Exam
-
Vital Signs:
Vital Signs
Temp Pulse Resp BP Pulse Ox
97.6 F 90 21 85/73 98
02/02/25 07:32 02/02/25 10:15 02/02/25 10:15 02/02/25 10:15 02/02/25 10:15
Cardiovascular:: Regular rate and rhythm
Respiratory:: Bilateral: Coarse
Lung Excursion:: Normal
Abdomen:: Distended, Nontender and Soft
Extremity Edema:: +1: Left: and None: Right:
Parikh Catheter: Yes
--- NOTE | 2025-02-02 08:48 | W.PN.POD ---
Today's Communication
Today's Communication
Left DM foot infection
Assessment / Plan
-
Left foot Diabetic foot infection - abscess, cellulitis, osteomyelitis 5th MPJ
Sepsis
JESUS
IDDM
neuropathy
PAD
Plan:
The original plan was for surgical intervention/amputation to follow revascularization. However, given worsening condition, I recommend partial 5th ray amputation for infection control once medically stable. Will discuss timing with Medicine.
Subjective
Chief Complaint
Left foot Diabetic foot infection
Subjective
Attempted to see patient this morning, however he is having dialysis port placed. So he could not be evlauated
Objective
Temp Pulse Resp BP Pulse Ox
97.6 F 157 20 186/105 98
02/02/25 07:32 02/01/25 23:00 02/01/25 23:00 02/01/25 23:00 02/02/25 07:06
02/02/25 03:23
02/02/25 06:03
Vital Signs and Lab results were reviewed.
[2025-02-02] MEDS: NOVOLOG FLEXPEN SC (09:12)
[2025-02-02] MEDS: NOVOLOG FLEXPEN-LOW RESISTANCE SC ×3 (09:13→16:32)
[2025-02-02 09:14] LABS: Glucose - Point of Care 65 mg/dl (70-99)
[2025-02-02] MEDS: MANNITOL 25% 12.5 GRAMS IV ×2 (09:20→10:20)
--- NOTE | 2025-02-02 09:29 | W.PN.ID1 ---
Date of Service
Date of Service: February 02, 2025
Today's Communication
Continue Vancomycin, dose by level.
Assessment / Plan
# Left 5th MT abscess; suspected underlying osteo
# Left foot cellulitis
# Leukocytosis significantly worse
# New dx PAD, left 5th ischemic toe
# JESUS - emergent HD started today
# Acute pulm edema from JESUS
# DM2 with neuropathy
- Blood cx's neg
- Wound cx MRSA
- Pt's spine stimulator incompatible with MRI.
- Bone biopsy per podiatry
- Arteriogram when medically stable
- Continue Vancomycin,dosing by level
- Trend WBC.
-Contact isolation.
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
Diabetes mellitus type 2
Hypertension
Atrial fibrillation on Xarelto
pacemaker placement
Chronic pain with spinal stimulator, not active
Chronic left leg weakness due to history of back injury during lumbar procedure 2019
Lumbar laminectomy
Chief Complaint
-: Other (osteo)
Subjective / Review of Systems
Events noted. Pt went into JESUS, minimal UO, pulm edema transfered to IMU.
and daugher at bedside.
+ SOB
Vital Signs / Physical Exam
Vital Signs
Vital Signs
Temp Pulse Resp BP Pulse Ox
97.6 F 157 20 186/105 98
02/02/25 07:32 02/01/25 23:00 02/01/25 23:00 02/01/25 23:00 02/02/25 07:06
Physical Exam
Constitutional: No Acute Distress
Cardiovascular: S1/S2 (tachycardic)
Pulmonary: Other (decreased BS bilaterally)
Gastrointestinal: Soft, Non Tender and Non Distended
Extremities: Edema
Wound: Other (Left foot dressing dry)
Neurological: AO x 3
Objective Data
Lab Data
Lab Results
02/02/25 03:23
02/02/25 06:03
ESR 78 mm/hour (0-20) H 01/28/25 12:23
Estimated Creat Clear 14 ml/min 02/02/25 06:03
Lactic Acid Cancelled 01/28/25 12:30
Total Bilirubin 0.9 mg/dl (0.2-1.3) 02/01/25 22:00
AST 27 U/L (17-59) 02/01/25 22:00
ALT < 10 U/L (0-50) 02/01/25 22:00
Alkaline Phosphatase 184 U/L (38-126) H 02/01/25 22:00
C-Reactive Protein 228.10 mg/L (0.0-10.00) H 01/28/25 12:23
Most recent labs reviewed.
Micro Results:
01/29/25 04:07 Blood Culture - Preliminary
Blood/Venous No Growth in 4 days- Final report to follow
02/01/25 19:47 Influenza Types A & B (GIFTY) - Final
Nasal Swab Negative for Influenza A & B, NAAT
Negative results must be combined with clinical observations
and patient history.
Nucleic Acid Amplification test (NAAT)performed on the
[employer] platform.
01/28/25 12:24 Blood Culture - Preliminary
Blood/Venous No Growth in 4 days- Final report to follow
01/31/25 09:04 Wound Culture - Preliminary
Foot - Left Staph aureus MRSA
Gram Stain - Preliminary
01/30/25 10:04 Wound Culture - Final
Foot - Left Staph aureus MRSA
Gram Stain - Final
01/28/25 17:44 MRSA Screen - Final
Nose No Methicillin Resistant Staphylococcus aureus isolated.
01/28/25 Left foot XRAY: No acute osseous abnormality. Mild soft tissue swelling along the lateral forefoot.
8/2/25 CXR: Hazy increased density over the left lower hemithorax, probably mainly due to a posteriorly layering pleural effusion.
[2025-02-02 09:57] LABS: Glucose - Point of Care 73 mg/dl (70-99)
[2025-02-02] MEDS: TOPROL XL PO (10:10)
[2025-02-02] MEDS: SENOKOT-S PO ×2 (10:10→20:16)
[2025-02-02] MEDS: METAMUCIL, KONSYL PO ×2 (10:10→20:15)
[2025-02-02] MEDS: FLEXBUMIN 25% FOR HEMODIALYSIS 12.5 GRAMS IV (10:17)
[2025-02-02 10:22] LABS: Troponin I 0.315 ng/ml
--- NOTE | 2025-02-02 10:42 | PHA.VAN.FU ---
Vancomycin Assessment / Plan
- Assessment
Renal Function: SCR Increasing (Patient received an emergent dialysis today (02/02).)
WBC's are: Trending Up
In the past 24 hrs, patient has been: Afebrile
- Assessment - Therapeutic Drug Monitoring
Random Level: 02/02 was 26.1
Patient is receiving dialysis today. Will re-dose with a 750mg dose
- Monitoring Plan
Random Level: 02/03 with morning labs
- Follow Up
Pharmacy will continue to follow.
Vancomycin Follow UP
- -
Patient Age: 79
Patient Sex: Male
Vancomycin Day #: 6 (discontinued 01/30 after 0600 dose and resumed 01/31)
Indication: Skin And Soft Tissue
Requesting Provider: Dr. Archer
Pertinent Antimicrobial Allergies:
NKDA
Height / Weight:
Height 5 ft 9 in
Actual Weight 99.3 kg
Pertinent Past Medical History: BMI ~30.5, DM 2
- Vital Signs / Lab Results
Temp Pulse Resp BP Pulse Ox
97.6 F 90 21 85/73 98
02/02/25 07:32 02/02/25 10:15 02/02/25 10:15 02/02/25 10:15 02/02/25 10:15
Lab Results - Hematology
01/31/25 02/01/25 02/01/25
07:13 07:19 20:16
WBC 19.2 H 21.8 H 31.9 H
02/02/25
03:23
WBC 31.8 H
Lab Results - Chemistry
02/01/25 02/01/25 02/01/25
07:19 16:06 20:16
BUN 53 H 58 H Cancelled
Creatinine 3.3 H 3.9 H Cancelled
Estimated Creat Clear 21 18 Cancelled
Albumin
02/01/25 02/02/2502/02/25
22:00 03:23 06:03
BUN 66 H 66 H 69 H
Creatinine 4.3 H* 4.7 H* 4.9 H*
Estimated Creat Clear 16 15 14
Albumin 3.6
02/02/25
09:24
Lactic Acid 15.1 H*
Microbiology Results
01/29/25 04:07 Blood Culture - Preliminary
Blood/Venous No Growth in 4 days- Final report to follow
02/01/25 19:47 Influenza Types A & B (GIFTY) - Final
Nasal Swab Negative for Influenza A & B, NAAT
Negative results must be combined with clinical observations
and patient history.
Nucleic Acid Amplification test (NAAT)performed on the
[employer] platform.
01/28/25 12:24 Blood Culture - Preliminary
Blood/Venous No Growth in 4 days- Final report to follow
01/31/25 09:04 Wound Culture - Preliminary
Foot - Left Staph aureus MRSA
Gram Stain - Preliminary
01/30/25 10:04 Wound Culture - Final
Foot - Left Staph aureus MRSA
Gram Stain - Final
Therapeutic Drug Monitoring
Random Vancomycin 26.1 ug/ml 02/02/25 03:23
--- NOTE | 2025-02-02 10:51 | W.PN.NEPH.HD ---
Assessment
-
pt seen during HD
vitals stable
UF as tolerates
L acid high -possible metformin related, CT angio on 02/01 no bowel ischemia?
noted potential toe amputation tomorrow but would need to stabilize him clinically before
d/w pt and primary
HD again tomorrow
Progress Note - Hemodialysis
-
Date of Service: February 02, 2025
Duration: 15 minutes and 2 hours
Potassium Bath: 3
Calcium Bath: 2.5
Opti-Dialyzer: 160
Ultrafiltration: Other (1kg)
Blood Flow: 250
Dialysate Flow: Other (500)
Heparin: no
EPO: no
--- NOTE | 2025-02-02 10:59 | CON.CAR ---
Consultation
Consultation Request
Date/Time Consultation Requested: 02/02/2025, 0204
Date/Time Consultation Performed: 02/02/2025, 0800
Requesting Provider: Do
Performing Provider: Faby
Reason for Consultation: troponin, BNP
Medical History
-
Chief Complaint: Cellulitis
History of Present Illness:
Patient is a pleasant 71-year-old male with a past medical history significant for permanent atrial fibrillation, paroxysmal complete heart block status post dual-chamber pacemaker 2021, hypertension, hyperlipidemia, diabetes mellitus, prior
syncope, nerve stimulator, osteoarthritis who initially presented due to worsening lower extremity infection. Patient was noted to have significant atherosclerosis of bilateral lower extremities. Patient's renal function began to worsen and
patient with significant leukocytosis. Patient and family had reported increasing shortness of breath, decreased oral intake, and nausea. Since admission, patient undergoing treatment of infection with IV antibiotics however, renal function
continued to worsen. Patient underwent implant of dialysis catheter on 02/02/2025 with initiation of hemodialysis. Cardiology consulted due to elevated troponin and elevated BNP. Patient's initial troponin was noted to be 0.5 which is down trended
to 0.35 and 0.315. In discussion with patient and family, he notes some intermittent variable chest discomfort which occasionally occurs with position changes and at rest but no reported chest pain with activity or exertion. Prior to admission,
patient was active and denied chest pain shortness of breath or palpitations with activity or exertion. Additionally, patient's BNP checked on 02/01/2025 was greater than 27,000. Patient is a non-smoker, no alcohol, no illicits. Patient without
significant family history.
Past Medical History
Past Medical History: Other (See HPI)
Past Surgical History: Other (See HPI)
Social History
Tobacco: Non-Smoker
Alcohol: None
Drug: None
Personal:
Living: With Family
Family History
Family History: Reviewed & Not Pertinent
Allergies / Home Medications
Allergy/AdvReac Type Severity Reaction Status Date / Time
No Known Allergies Allergy Verified 09/21/21 09:39
�Medication �Instructions �Recorded �Confirmed �Type
insulin aspart U-100 100 unit/mL 4 - 14 units SC AC Diabetes 09/07/21 01/28/25 History
subcutaneous solution (Novolog
U-100 Insulin aspart)
lovastatin 40 mg tablet 40 mg PO HS High cholesterol 09/07/21 01/28/25 History
hydrochlorothiazide 50 mg tablet 50 mg PO DAILY Blood Pressure 09/21/21 01/28/25 History
lisinopril 20 mg tablet 20 mg PO BID Blood pressure 09/21/21 01/28/25 History
metformin 1,000 mg tablet 1,000 mg PO BID@0800,1700 Diabetes 12/02/21 01/28/25 Rx
##0
Lactobacil.acidophilus-Bifido.animalis 1 cap PO DAILY Gastrointestinal 01/28/25 01/28/25 History
5 billion cell sprinkle capsule Issue
(Probiotic)
hydralazine 25 mg tablet 25 mg PO BID Blood Pressure 01/28/25 01/28/25 History
insulin degludec 100 unit/mL (3 24 unit SC HS Diabetes 01/28/25 01/28/25 History
mL) subcutaneous pen
metoprolol succinate 25 mg 25 mg PO BID Blood Pressure 01/28/25 01/28/25 History
tablet,extended release 24 hr
psyllium 1 packet PO BID Constipation 01/28/25 01/28/25 History
rivaroxaban 20 mg tablet (Xarelto) 20 mg PO QPM Blood clot 01/28/25 01/28/25 History
prevention/tx
Review of Systems
-
History Source: Patient and Family
All other systems: Negative unless noted
Constitutional: Fever and Chills
EENT: No Symptoms
Respiratory: Trouble Breathing
Cardiac: Chest Pain
Abdomen/GI: Abdominal Pain, Nausea and Anorexia
: Dysuria
Musculoskeletal: No Symptoms
Skin: Other (Lower extremity cellulitis/swelling (LLE))
Neurological: No Symptoms
Endocrine: No Symptoms
Hematologic/Lymphatic: No Symptoms
Physical Exam
Vital Signs
Temp Pulse Resp BP Pulse Ox
97.6 F 90 21 85/73 98
02/02/25 07:32 02/02/25 10:15 02/02/25 10:15 02/02/25 10:15 02/02/25 10:15
Lab Results
02/02/25 03:23
02/02/25 06:03
Troponin I 0.315 ng/ml H* 02/02/25 09:38
Bkk-D-Dvykofftyvp Pept > 12579 pg/ml 02/01/25 20:16
physical exam:
GENERAL: no acute distress, nasal cannula, conversational dyspnea
EYE: sclera anicteric
NECK: Supple, no JVD, no carotid bruit appreciated
ENT: normal nose, moist mucosal membranes
CARDIAC: Irregularly irregular, +S1/S2, 2/6 systolic murmur; no rubs, or gallops
CHEST/PULMONARY: Poor inspiratory effort, bibasilar crackles
ABDOMEN: Soft, without focal tenderness; mild distended
NEUROLOGICAL: Alert and oriented x3
SKIN: Warm and dry; trace RLE edema past knee with 1+ pitting edema LLE foot/ankle wrapped
PSYCH: Normal and appropriate interaction.
Telemetry shows AF
EKG 02/01 AF RVR left axis deviation right bundle branch block no significant change from 01/28
Impression / Plan
-
PCP: Dr. Roman Macedo
Construction Supervisor: Dr. Frank Munoz
Impression:
LLE/left foot cellulitis
Sepsis related to above
JESUS requiring hemodialysis
Peripheral vascular disease
Diabetes mellitus type 2
Hypertension
Permanent atrial fibrillation, RVR
Acute on chronic heart failure with preserved ejection fraction
Dyslipidemia
Obesity
Paroxysmal complete heart block status post dual-chamber pacemaker 2021 ([employer])
Echo 08/2021: EF 55-60, mild concentric LVH, small pericardial effusion
Echo 10/2024: EF 65%, mild MS, mild with gradient 10 mmHg, PASP 30 mmHg
LHC 09/07/21: LAD is on the smaller side and is calcified with diffuse disease and reaches the apex. The second OM is small and has a 40% ostial stenosis. The distal OM 3 inferior branch has an ostial 50% stenosis. RCA has mid 50% stenosis. Given that
this was the area that was positive and the stress test it was decided to proceed with IFR. iFRs of this lesion were serially negative around 0.92 indicating a nonobstructive lesion. Conclusions: moderate nonobstructive coronary atherosclerosis,
normal LV function, mild .
Recommendations:
� Patient presenting with cellulitis, sepsis and worsening JESUS. Initial troponin noted to be mildly elevated and downtrending. Patient with known moderate nonobstructive coronary disease in 2021. BNP greater than 27,000. It is likely a
consequence of the JESUS causing fluid retention leading to the acute on chronic heart failure along with the acute medical illness with infection and sepsis. With this in mind, appreciate input through nephrology with hemodialysis and fluid
reduction. Discomfort and shortness of breath likely related to volume overload. Patient without anginal symptoms prior to admission. Will likely benefit from ischemic evaluation following treatment of acute medical illness
� IV antibiotics and source control
� Monitor on telemetry
� Continue statin, beta-boy if able; would recommend continued anticoagulation if able. IV heparin may be advisable in the setting of need for hemodialysis
� Echocardiogram
Discussed with nursing, family
Data Reviewed
-
EKG: Tracing Personally Visualized and interpreted
Radiology: Report Reviewed by me
CT Scan: Report Reviewed by me
Medical Tests (Nuc Med, Echo etc): Report Reviewed by me
Labs: Labs Reviewed by me
Old Records: Reviewed
--- NOTE | 2025-02-02 11:21 | W.PN.HOSP.TC ---
Today's Communication/Plan
-
Transfer to ICU after HD
Assessment / Plan
Assessment / Plan
HPI: 79-year-old male past medical history of permanent atrial fibrillation on Xarelto, hyperlipidemia, hypertension, diabetes, presenting with left fifth metatarsal callus/tenderness with redness, swelling progressing up the leg. He expressed pus
from the callus 3 weeks ago and put antibiotic on it. Labs show leukocytosis. Foot x-ray shows mild soft tissue swelling of the lateral forefoot. Patient septic secondary to left foot cellulitis with lymphangitis. �IV fluids, blood cultures, check
MRSA, vancomycin and Zosyn. �Hold blood pressure medications for now.
#Sepsis 2/2 to Diabetic left foot cellulitis w/ lymphangitis
#Chronic left leg weakness due to back injury during procedure 2019
#Worsening leukocytosis
Podiatry recommends bone biopsy, offloading heels in bed, may use an orthowedge shoe and heel weightbear with walker assistance
Unable to have MRI due to spinal stimulator not active
Wound culture growing MRSA
Appreciate ID input, antibiotics changed to vancomycin
Appreciate podiatry input, status post bedside I&D of L foot abscess 01/31, plan for partial left fifth toe amputation on Saturday 02/03
CT abdomen pelvis reviewed, shows cystitis, check urine analysis and culture urgently if patient is producing urine
Discussed with ID -who recommends holding off on adding more antibiotics unless urine culture is positive
Transfer to ICU due to elevated lactic acid of 15.1
#Lactic acidosis
Lactic acid 15.1
Differential diagnosis include metformin induced versus worsening sepsis
Metformin discontinued 02/01
MAP has been consistently greater than 65
Patient currently receiving dialysis, maintain MAP greater than 65, trend lactic acid
#Acute kidney injury
Creatinine 4.9 today, was 1.0 upon admission
Due to metformin, lisinopril, hydrochlorothiazide, vancomycin, and IV contrast
Appreciate nephrology input, dialysis started 02/02
Hold metformin, lisinopril, hydrochlorothiazide, trend creatinine, no nephrotoxic drugs or NSAIDs
#Peripheral artery disease
Appreciate vascular surgery input, had CTA with left lower extremity runoff today
Originally planned for left lower extremity angiogram Sunday 02/04, but will hold due to renal failure
#Acute on chronic heart failure with a preserved ejection fraction
Cardiology following, continue dialysis as per nephrology
#Permanent atrial fibrillation with rapid ventricular response
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
Hold oral metoprolol secondary to hypotension, will order IV metoprolol as needed
Change Xarelto to IV heparin drip due to renal failure requiring dialysis
#DM 2
Hemoglobin A1c 7.1
Hold metformin 1000 mg daily due to JESUS
Will reduce basal insulin to 5 units at bedtime, continue sliding scale insulin
#Soft blood pressure
#History of essential hypertension
Blood pressure soft upon admission, then trended up
Hold lisinopril 20 mg daily and HCTZ 50 mg daily due to JESUS
Hold hydralazine 25 mg BID and metoprolol 25 mg twice daily due to hypotension
May require Levophed if blood pressure continues to drop
#Constipation
Last BM January 28
Patient refusing laxatives, continue to encourage him to take it as he is taking opioids for pain and is not very mobile currently
#HLD
-Continue lovastatin 40 mg at bedtime
#Obesity due to excess calories
- Affects all aspects of care
DVT prophylaxis -IV heparin drip
Full code
Updated daughter at bedside 02/02
Total time spent to see the patient on the floor, examine the patient, review data and lab results, discuss treatment plan with patient, nursing staff around 55 minutes.
Physical Exam
General: Obese, no acute distress
HEENT: Normocephalic, Atraumatic, EOMI, MMM
Respiratory: Clear to Auscultation bilaterally
Cardiac: Normal S1/S2, Regular Rate and Rhythm
GI: Soft, Nontender, distended, Normal Bowel Sounds
Extremities: No Clubbing, Cyanosis
Left foot with scattered erythema, improving erythema of the calf
Neuro: Nonfocal/Grossly Intact
Psych: Calm, Cooperative
Anticipated Discharge: > 48 hours
Subjective/Interval History
-
Date of Service: February 02, 2025
Patient seen and examined while undergoing dialysis. No bowel movement. Complains of diffuse pain everywhere, except for his foot. Denies chest pain, denies shortness of breath. He is nauseous, no vomiting. No fever.
Objective Data
-
Labs:
Laboratory Results
02/01/25 02/02/25 02/02/25
22:00 03:23 06:03
WBC 31.8 H
Hgb 11.7 L
Hct 35.7 L
Plt Count 428 H
Sodium 130 L 134 L 135
Potassium 5.3 H 5.0 5.2 H
Chloride 94 L 95 L 96 L
Carbon Dioxide 13 L* 7 L* 7 L*
BUN 66 H 66 H 69 H
Creatinine 4.3 H* 4.7 H* 4.9 H*
Glucose 90 79 74
Calcium 9.1 8.8 8.5
Total Bilirubin 0.9
AST 27
ALT < 10
Alkaline Phosphatase 184 H
Vital Signs:
Vital Signs
Temp Pulse Resp BP Pulse Ox
97.6 F 157 20 186/105 98
02/02/25 07:32 02/01/25 23:00 02/01/25 23:00 02/01/25 23:00 02/02/25 07:06
I&O
02/01/25 02/02/25 02/03/25
06:59 06:59 06:59
Intake Total 480 / 480 960 / 960
Output Total 200 / 200
Balance 280 / 280 960 / 960
--- NOTE | 2025-02-02 11:41 | CON.INTV ---
Consultation
Consultation Request
Date/Time Consultation Requested: 02/02/25
Date/Time Consultation Performed: 02/02/25
Performing Provider: Vicky
Reason for Consultation: ICU, lactic acidosis
Medical History
-
History of Present Illness:
Patient is a 79-year-old male with previous history of diabetes, hypertension, A-fib on Xarelto, pacemaker placement since presenting to ER for infected fifth metatarsal with purulent drainage with resultant erythema on the dorsal aspect of the
foot progressing to generalized erythema and lymphangitis on the lower extremity to mid thigh over the past 4 days. He was taking oral Cipro course but was likely failing outpatient regiment. Admitted to on 01/28/2025. Podiatry was consulted
and performed a bedside I&D with concern for underlying osteomyelitis. He is placed on IV antibiotics with ID following.
Developed worsening acute kidney injury and decreased urine output with worsening metabolic acidosis. HD catheter placed and hemodialysis initiated on 02/02/2025. Lactic acid was noted as well. He has been hemodynamically stable not on pressors.
He is transferred to ICU for worsening profound sepsis.
Allergies / Home Medications
Allergies
Allergy/AdvReac Type Severity Reaction Status Date / Time
No Known Allergies Allergy Verified 09/21/21 09:39
Home Medications
�Medication �Instructions �Recorded �Confirmed �Last Taken �Type
insulin aspart U-100 100 unit/mL 4 - 14 units SC AC Diabetes 09/07/21 01/28/25 11/30/21 19:00 History
subcutaneous solution (Novolog
U-100 Insulin aspart)
lovastatin 40 mg tablet 40 mg PO HS High cholesterol 09/07/21 01/28/25 11/30/21 22:00 History
hydrochlorothiazide 50 mg tablet 50 mg PO DAILY Blood Pressure 09/21/21 01/28/25 11/30/21 07:00 History
lisinopril 20 mg tablet 20 mg PO BID Blood pressure 09/21/21 01/28/25 12/01/21 08:00 History
metformin 1,000 mg tablet 1,000 mg PO BID@0800,1700 Diabetes 12/02/21 01/28/25 11/30/21 19:00 Rx
##0
Lactobacil.acidophilus-Bifido.animalis 1 cap PO DAILY Gastrointestinal 01/28/25 01/28/25 Unknown History
5 billion cell sprinkle capsule Issue
(Probiotic)
hydralazine 25 mg tablet 25 mg PO BID Blood Pressure 01/28/25 01/28/25 Unknown History
insulin degludec 100 unit/mL (3 24 unit SC HS Diabetes 01/28/25 01/28/25 Unknown History
mL) subcutaneous pen
metoprolol succinate 25 mg 25 mg PO BID Blood Pressure 01/28/25 01/28/25 Unknown History
tablet,extended release 24 hr
psyllium 1 packet PO BID Constipation 01/28/25 01/28/25 Unknown History
rivaroxaban 20 mg tablet (Xarelto) 20 mg PO QPM Blood clot 01/28/25 01/28/25 01/27/25 History
prevention/tx
Review of Systems
Vitals / Labs / Diagnostic Testing
Vital Signs
Temp Pulse Resp BP Pulse Ox
97.6 F 90 21 85/73 98
02/02/25 07:32 02/02/25 10:15 02/02/25 10:15 02/02/25 10:15 02/02/25 10:15
Lab Data
02/02/25 03:23
02/02/25 06:03
Microbiology
01/29/25 04:07 Blood/Venous Blood Culture - Preliminary
No Growth in 4 days- Final report to follow
02/01/25 19:47 Nasal Swab Influenza Types A & B (GIFTY) - Final
Negative for Influenza A & B, NAAT
Negative results must be combined with clinical observations
and patient history.
Nucleic Acid Amplification test (NAAT)performed on the
[employer] platform.
01/28/25 12:24 Blood/Venous Blood Culture - Preliminary
No Growth in 4 days- Final report to follow
01/31/25 09:04 Foot - Left Wound Culture - Preliminary
Staph aureus MRSA
01/31/25 09:04 Foot - Left Gram Stain - Preliminary
01/30/25 10:04 Foot - Left Wound Culture - Final
Staph aureus MRSA
01/30/25 10:04 Foot - Left Gram Stain - Final
01/28/25 17:44 Nose MRSA Screen - Final
No Methicillin Resistant Staphylococcus aureus isolated.
Diagnostic Testing:
Assessment
-
Patient is a 79-year-old male with previous history of diabetes, hypertension, A-fib on Xarelto, pacemaker placement since presenting to ER for infected fifth metatarsal with purulent drainage with resultant erythema on the dorsal aspect of the
foot progressing to generalized erythema and lymphangitis on the lower extremity to mid thigh over the past 4 days. He was taking oral Cipro course but was likely failing outpatient regiment. Admitted to on 01/28/2025. Podiatry was consulted
and performed a bedside I&D with concern for underlying osteomyelitis. He is placed on IV antibiotics with ID following. Developed worsening acute kidney injury and decreased urine output with worsening metabolic acidosis. HD catheter placed and
hemodialysis initiated on 02/02/2025. Lactic acid was noted as well. He has been hemodynamically stable not on pressors. He is transferred to ICU for worsening profound sepsis 02/02/25.
Severe sepsis, not on pressors
Infected R toe complicated by osteomyelitis and cellulitis of the lower extremity
Leukocytosis
Thrombocytosis
Severe metabolic acidosis
Acute kidney injury with oliguria now on HD 02/02/25
Hyperkalemia
Hyponatremia
Lactic acidosis
TME due to above
Conditions present prior to admission
PAF on Xarelto
Atypical syncope
Presence of cardiac pacemaker
Essential (primary) hypertension
Obesity
History of hepatitis r/t mononucleosis 1989
Diverticulosis/Colon polyps
IDDM
HLD
Spinal stenosis in cervical region s/p nerve stimulator implant
Herniated disc, cervical
Lumbar Laminectomy
Bilateral Arthroscopy Knees
Plan
+current signs of metabolic encephalopathy likely TME due to sepsis
Has chronic pain issues in his lumbar and cervical spine
Pain/sedation: As needed but would hold off on significant amounts, sedating medications
RASS goals: 0
Hemodynamically stable, not requiring pressors.
Cardiac history reviewed--hypertension, A-fib on OAC/pacemaker
Prior ECHO reviewed indicating normal function
Resume home meds cautiously
Monitor on telemetry
Oxygen needs: He is not known to be on home oxygen, he is currently 97% on 2 L
Prior history of lung disease: None, but suspect untreated sleep apnea
AB.//11 indicating primary metabolic acidosis
Supplemental O2 as indicated to maintain sats > 89%
CXR/CT reviewed indicating no acute findings
BiPAP can be tried if needed for work of breathing
NPO, resume diet when able
Has not had bowel movement successfully
CT abdomen pelvis not demonstrating ischemic bowel disease
Production Designer recommendations
Aspiration precautions, HOB > 30 degrees
Speech therapy eval can be considered if at elevated risk
GI prophylaxis if indicated for mechanical ventilation >48 hours, prior history of GERD, stress ulcer formation in the critically ill
JESUS present likely due to profound sepsis
Renal following, initiated on HD 02/02/2025
Creat at baseline 0.9-1.0, no history of renal disease
Void trials
Follow urine output, critical I/Os
Replete electrolytes as needed
Fever and increased WBC on presentation, suspect underlying right toe infection complicated by osteomyelitis and cellulitis
Podiatry and vascular consults were obtained
Underwent toe I&D 01/31/2025
Started on empiric antibiotics, ID following
Cultures sent/pending, Wound culture with MRSA
Follow fever trend, WBC count
Lactate elevated on admission, continue to trend until <2
CBC stable, no signs of bleeding or coagulopathy.
DVT prophylaxis as assessed based on risk, including mechanical SCDs
Can transfuse if indicated for Hb <7, plt < 10
No prior h/o thyroid disease
H/o diabetes, can continue on home meds, SS for coverage
HbA1c 7.1, 7.6--indicating likely poor control
Diagnostic Data
Chest X-Ray: 02/02/25- Placement of a right internal jugular dual-lumen dialysis catheter with the tip in the SVC. Stable left cardiac conduction device and spinal stimulator leads. Low lung volumes. Mild bibasilar atelectasis. Possible small layering
left pleural fluid. No pneumothorax. Stable enlargement of the cardiac silhouette.
CT Scan: AP 02/01/25- Multifocal atherosclerosis throughout the bilateral lower extremities. Diminished flow in the left anterior tibial artery with some apparent distal reconstitution, and diminished flow at the distal aspect of the left peroneal
artery at the level of the ankle. Short segment high-grade stenosis of the distal right SFA. Diminutive right calf vessels with multifocal stenoses. Small bilateral pleural effusions. Urinary bladder wall thickening with inflammatory fat stranding.
Recommend correlation with a urinalysis for acute cystitis.
Echo: 10/02/24- Normal left ventricular size and systolic function. Mild concentric left ventricular hypertrophy. No regional wall motion abnormalities are seen. LV ejection fraction is 60-65% by volumetric assessment. Thickened mitral valve leaflets
with mild mitral stenosis. Peak/mean gradients across the mitral valve are 11/4 mmHg, respectively. Trace mitral regurgitation. Mitral annular calcification. Thickened and calcified aortic valve with mild aortic stenosis. Peak/mean gradients across
the aortic valve are 18/10 mmHg, respectively. The aortic regurgitation. Tricuspid valve opens normally with trace tricuspid regurgitation. Estimated pulmonary artery pressure of 30 mmHg. Compared to prior study 09/22/2021 there is mild mild mitral
valve stenosis. There is now mild aortic valve stenosis. There is mild aortic valve insufficiency.
PFT's:
Reports and relevant images were personally reviewed.
Critical Care time 50 mins -- The patient is admitted for acute critical illness for the treatment of vital organ failure and/or prevention of further life-threatening conditions. Total care includes time spent in review of history, physical exam,
medications, hemodynamic/ventilator parameters, laboratory data, imaging and discussion with house staff, pharmacy, respiratory therapy, sanitary chemist, and nursing.
[2025-02-02] MEDS: VANCOCIN 150 IV (12:36)
[2025-02-02 13:52] LABS: APTT 36.3 Sec (23.4-35.0)
--- NOTE | 2025-02-02 13:57 | PTCARENOTE ---
pt appearing depressed with ongoing situation, notified Dr. Archer that psych consult may be helpful for patient.
[2025-02-02 14:00] LABS: Troponin I 0.253 ng/ml
--- NOTE | 2025-02-02 14:00 | VATNOTE ---
PRIMARY RN NOTIFIED THIS NURSE PT WITH LA INFILTRATE, +1 EDEMA.VAT ASSESSED, IV REMOVED, NEW IV PLACED. PT DENIES DISCOMFORT TO THE ARM. ELEVATED, HEAT APPLIED, WILL CONT TO MONITOR
[2025-02-02 14:07] LABS: Urine Character Cloudy (Clear)
--- NOTE | 2025-02-02 14:20 | PTCARENOTE ---
Pt to ICU via bed with oxygen 2 liters nasal cannula. Audible wheeze. Lungs dim throughout posteriorly. Doppler pedal signals. Skin pale cold clammy. Poor capillary refill. Controlled Afib. He was informed of the plan of care regarding vital signs,
medication administration, Serial labs and visiting policy. Right FA #22g protective catheter flushed and patent. Large firm round abdomen. He stated No BM since last Monday. +Flattus, Hyperactive BSX4. He was instructed to limit po intake for now
until I clarify if he has fluid restrictions. Son Javier is at the bedside. Left foot dressing CDI. Right foot with red blanchagle heels and sloughing skin. Safe environment maintained.
[2025-02-02 14:26] LABS: Urine Red Blood Cell 26-30 /HPF (0-2); Urine White Cell 30-40 /HPF (0-5)
[2025-02-02 14:42] LABS: Glucose - Point of Care 122 mg/dl (70-99)
--- NOTE | 2025-02-02 15:42 | W.PN.UPDATE ---
Update Note
Progress Note Update
Patient is evaluated at bedside today. He is awake and conversational.
His left foot shows erythema stemming from the 5th MPJ area, no purulence is expressed from the I&D site. The 5th toe is dark and non viable and the CFT is slow to the 5th MPJ area.
Left foot diabetic foot infection - cellulitis, osteomyelitis
Neuropathy
sepsis
PAD
JESUS
Surgical consent was reviewed and discussed at bedside. All questions and concerns were discussed with he, his and his son. Risks, benefits and complications of surgery were discussed. He is aware that he is high risk for non healing due to
compromised vascular status - Due to his kidney injury he is not cleared for angiogram at this time. He is aware that he may require further debridement, further amputation and is at high risk for limb loss.
He is NPO and is added to the OR schedule for tomorrow pending AM las and medical/nephrology clearance.
--- NOTE | 2025-02-02 15:57 | PTCARENOTE ---
Attempted IV access. Veins small and scleroses. Pt refused any more sticks. Insistent on getting OOB to the commode. He was instructed to not bear down too hard. Per provider PICC ordered. Also notified Dr. Arteaga regarding my concerns for
ileus given high pitched BSX4, severe constipation with elevated Lactate level and worsening firmness of his abdomen with no appetite.
--- NOTE | 2025-02-02 16:00 | PTCARENOTE ---
Very persistent to get OOB to commode even though he cannot feel his feet. OOB to commode 2 assist. Very deconditioned. RN remained with pt. He had initially a very small hard formed stool then he passed a moderately sized hard formed stool. He had
some relief. Bed alarm placed on the bed due to him threatening to get OOB if he wants to. His son Javier is aware of the safety precautions taken.
[2025-02-02 16:09] LABS: Hepatitis B Surface Antigen Negative (Negative)
[2025-02-02 16:27] LABS: Hepatitis C Antibody Negative (Negative)
[2025-02-02 16:41] LABS: Glucose - Point of Care 136 mg/dl (70-99)
--- NOTE | 2025-02-02 17:47 | PTCARENOTE ---
Venous access team having difficulty advancing right upper arm PICC due to hemodialysis catheter. Attempted to notify Dr. Perry regarding the plan of either leaving it in and call IR[facility] to redirect it under Fluro, or pull it and place midline, however
will not have central access if vasopressors required.
--- NOTE | 2025-02-02 18:15 | VATNOTE ---
PICC ORDER RECEIVED FOR PT FOR PVA. PATIENT WITH R HD NON TUNNELED CATHETER PLACED TODAY, LEFT PACER. ATTEMPTED IN RIGHT ARM D/T PACER ON LEFT AND POSSIBLE DIFFICULTY ADVANCING PICC D/T PACER WIRES AND NOTED LEFT ARM INFILTRATE FROM EARLIER TODAY
02/02. ABLE TO ADVANCE PICC RIGHT SIDE WITH RESISTANCE FLUSHING AND NO BLOOD RETURN X2. REMOVED PICC D/T DETECTED MALPOSITION AND NEED FOR VASCULAR ACCESS USING RIGHT ARM. RIGHT MIDLINE PLACED FOR STABLE ACCESS. SUGGESTED [facility] CONSULT IF CENTRAL LINE
NEEDED, ALLEN NAVAS AWARE. PT RESTING.
[2025-02-02] MEDS: HEPARIN 25000 UNITS/250 ML IV (18:49)
--- NOTE | 2025-02-02 18:55 | PTCARENOTE ---
S/P 2nd large formed BM on the bedside commode. He is a 2 assist with walker. Family remains at the bedside. Heparin drip initiated as ordered via right upper arm midline. Right FA#22g flushed, no blood return. Left U/E swollen from infiltrate prior
to ICU admit. BP cuff on FA.
--- NOTE | 2025-02-02 20:00 | PTCARENOTE ---
Addendum entered by Sera Barr RN 02/03/25 02:26:
Khalif Fierro, PAMELLA aware of lactic, will repeat,family updated on pt status, bed alarm on
Original Note:
Rec'd pt resting in bed, drowsy,disoriented to time, place,reoriented, family at bedside, denies pain, afib w/ pvc's, occas v paced, distal pulses via doppler , left foot dsg intact, RA, lungs decr in bases, sat 100,, resp shallow, hypo bowel
sounds, had soft bm at start of shift, no n/v, yann fluids, no appetite, parikh w/ scant bld tinged urine, hep gtt at 1000 units
[2025-02-02 21:52] LABS: Glucose - Point of Care 112 mg/dl (70-99)
[2025-02-02 21:55] LABS: AST (SGOT) 31 U/L (17-59); Albumin 3.3 g/dl (3.5-5.0); Alkaline Phosphatase 133 U/L (38-126); Blood Urea Nitrogen 60 mg/dl (9-20); Calcium 8.0 mg/dl (8.4-10.2); Carbon Dioxide 5 mmol/L (22-30); Chloride 94 mmol/L (98-107); Estimated Creatinine Clearance 16 ml/min; Glucose 135 mg/dl (70-99); Magnesium 1.8 mg/dl (1.6-2.3); Potassium 4.8 mmol/L (3.5-5.1); Sodium 132 mmol/L (135-145); Total Protein 6.0 g/dl (6.3-8.2); eGFR 13.02
--- NOTE | 2025-02-02 22:00 | PTCARENOTE ---
Khalif Fierro NP aware of labs, bladder scanned for 5 ml urine due t scant urine, lantus held per order since pt had no appetite & will be npo after md
2 amps sodium bicarb IV given at 2240 per order
[2025-02-02 22:09] LABS: ALT (SGPT) < 30 U/L (0-50)
[2025-02-02] MEDS: LANTUS SC (22:36)
[2025-02-02 22:49] LABS: Body Fluid for Eosinophils No Eosinophils seen
[2025-02-03] VITALS (43 sets, daily range): BP systolic 61–144; BP diastolic 39–98; BMI 32.5
--- NOTE | 2025-02-03 | PTCARENOTE ---
sys reviewed, assisted oob to commade w/ walker, had brown soft bm, back to bed,NPO for surg today, temp 94.7, dionte nur per order, CHG bath done, linens changed
[2025-02-03 01:13] LABS: INR 2.59; PT 27.8 Sec (11.4-14.6)
[2025-02-03 01:14] LABS: APTT 43.6 Sec (23.4-35.0)
--- NOTE | 2025-02-03 02:00 | PTCARENOTE ---
Khalif Fierro NP aware of labs- will cont to monitor
[2025-02-03 02:01] LABS: Blood Urea Nitrogen 64 mg/dl (9-20); Calcium 8.0 mg/dl (8.4-10.2); Carbon Dioxide 7 mmol/L (22-30); Chloride 94 mmol/L (98-107); Estimated Creatinine Clearance 15 ml/min; Glucose 140 mg/dl (70-99); Potassium 4.9 mmol/L (3.5-5.1); Sodium 133 mmol/L (135-145); eGFR 12.34
[2025-02-03] MEDS: LEVOPHED 250 IV ×3 (03:07→17:18)
[2025-02-03] MEDS: SODIUM BICARBONATE 50 MEQ IV ×5 (03:13→10:51)
--- NOTE | 2025-02-03 03:16 | PTCARENOTE ---
levo gtt started at 2mci, to titrate keeping map > 65, 1 amp sod bicarb iv givne per order
--- NOTE | 2025-02-03 04:07 | PTCARENOTE ---
sys reviewed, changes noted
[2025-02-03 05:20] LABS: Glucose - Point of Care 120 mg/dl (70-99)
[2025-02-03] MEDS: ZOFRAN 4 MG IV (06:15)
--- NOTE | 2025-02-03 06:17 | PTCARENOTE ---
zofran 4mg iv given for nausea
--- NOTE | 2025-02-03 06:50 | PTCARENOTE ---
2 amps sod bicarb iv given as [id number]
[2025-02-03] MEDS: FLEXBUMIN 100 IV (07:08)
[2025-02-03] MEDS: SENOKOT-S PO ×2 (07:17→19:43)
[2025-02-03] MEDS: METAMUCIL, KONSYL PO ×2 (07:17→19:43)
--- NOTE | 2025-02-03 07:44 | W.PN.HOSP.TC ---
Today's Communication/Plan
-
IR consult for triple-lumen catheter
Await OR
Continue antibiotics
Assessment / Plan
Assessment / Plan
Gen-awake, alert, NAD
HEENT-NC, AT, anicteric, clear oral mm
Neck-supple
CV-reg, no M, +S1/S2
Lungs-clear B/L
Abd-soft, NT, ND
Ext-no edema
Musculoskeletal-no cyanosis, clubbing, left fifth toe cyanosis
Skin-warm and dry
Neuro-grossly non-focal
Psych-calm, cooperative
Acute TME -due to sepsis, shock, critical illness.
Septic shock due to to left fifth metatarsal abscess -possible underlying osteomyelitis. IV vancomycin per ID. Continue Levophed for shock. Blood cultures negative so far. Wound culture shows MRSA.
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
Worsening leukocytosis
Podiatry recommends bone biopsy, offloading heels in bed, may use an orthowedge shoe and heel weightbear with walker assistance
Unable to have MRI due to spinal stimulator not active
Wound culture growing MRSA
Appreciate podiatry input, status post bedside I&D of L foot abscess 01/31, plan for partial left fifth toe amputation on Saturday 02/03
CT abdomen pelvis reviewed, shows cystitis, check urine analysis and culture urgently if patient is producing urine
Lactic acidosis due to sepsis
Lactic acid 15.1
Differential diagnosis include metformin induced versus worsening sepsis
Metformin discontinued 02/01
MAP has been consistently greater than 65
Acute kidney injury -due to septic shock. Anuric. Gonzalez catheter in place. Etiology of JESUS most likely due to septic shock and medications and less likely due to contrast-induced nephropathy as contrast exposure was on 02/01, creatinine was 3.3
morning of 02/01.
Appreciate nephrology input, dialysis started 02/02
Gap metabolic acidosis due to septic shock, lactic acidosis.
Hold metformin, lisinopril, hydrochlorothiazide, trend creatinine, no nephrotoxic drugs or NSAIDs
Peripheral artery disease
Appreciate vascular surgery input, had CTA with left lower extremity runoff today
Originally planned for left lower extremity angiogram Sunday 02/04, but will hold due to renal failure
Acute on chronic heart failure with a preserved ejection fraction
Cardiology following, continue dialysis as per nephrology
Troponin elevation -suspect acute nonischemic myocardial injury due to septic shock. Troponin trending down.
Permanent atrial fibrillation with rapid ventricular response
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
Continue IV heparin.
Hyponatremia -monitor for now.
Hyperphosphatemia -due to JESUS.
DM 2 with hyperglycemia
Hemoglobin A1c 7.1 on 01/13/2025
Hold metformin 1000 mg daily due to JESUS
Will reduce basal insulin to 5 units at bedtime, continue sliding scale insulin
Essential hypertension -meds on hold for hypotension, shock.
Constipation -last bowel movement 02/03.
Continue laxatives.
Hyperlipidemia
-Continue lovastatin 40 mg at bedtime
Obesity due to excess calories
- Affects all aspects of care
DVT prophylaxis -IV heparin drip
Full code
Anticipated Discharge: > 48 hours
Subjective/Interval History
-
Date of Service: February 03, 2025
Patient seen and examined. No complaints.
Objective Data
-
Labs:
Laboratory Results
02/02/25 02/03/25 02/03/25
21:01 00:54 06:00
WBC Pending
Hgb Pending
Hct Pending
Plt Count Pending
PT 27.8 H
INR 2.59
APTT 43.6 H
Sodium 132 L 133 L
Potassium 4.8 4.9
Chloride 94 L 94 L
Carbon Dioxide 5 L* 7 L*
BUN 60 H 64 H
Creatinine 4.4 H* 4.6 H*
Glucose 135 H 140 H
Calcium 8.0 L 8.0 L
Total Bilirubin 0.9
AST 31
ALT < 30
Alkaline Phosphatase 133 H
02/03/25
07:44
WBC
Hgb
Hct
Plt Count
PT
INR
APTT Pending
Sodium
Potassium
Chloride
Carbon Dioxide
BUN
Creatinine
Glucose
Calcium
Total Bilirubin
AST
ALT
Alkaline Phosphatase
Vital Signs:
Vital Signs
Temp Pulse Resp BP Pulse Ox
97.5 F 117 21 91/72 93
02/03/25 07:00 02/03/25 07:15 02/03/25 07:15 02/03/25 07:15 02/03/25 07:00
I&O
02/02/25 02/03/25 02/04/25
06:59 06:59 06:59
Intake Total 960 / 960 233.0 / 233.0
Output Total 65 / 65
Balance 960 / 960 168.0 / 168.0
Review of Systems
-
History Source: Patient
All other systems: Reviewed and negative
[2025-02-03 08:06] LABS: APTT 49.2 Sec (23.4-35.0)
[2025-02-03 08:25] LABS: Glucose - Point of Care 104 mg/dl (70-99)
[2025-02-03] MEDS: NOVOLOG FLEXPEN-LOW RESISTANCE SC ×4 (08:28→23:44)
--- NOTE | 2025-02-03 08:30 | PTCARENOTE ---
report received,assessments per work list. patient anxious and forgetful. confused at times. c/o back pain with repositioning. monitor afib. levophed titration per work list. heparin per aug. parikh with no urine output. abdomen distended.
incontinent of pasty brown green stool. patient vomited large amount brown coffee ground emesis. patient then dyspneic and wheezing. placed on 2 liters oxygen. hospitalist and sales representative malt [employer] updated by tiger text. sales representative [employer] at bedside to evaluate.
orders received. heparin adjustment per work list. call cervantes in reach
--- NOTE | 2025-02-03 08:59 | PTCARENOTE ---
patient remains tachypneic, confused, visual hallucinations. cxr, abd xray completed
--- NOTE | 2025-02-03 09:18 | PHA.VAN.FU ---
Addendum entered and electronically signed by Jacinda Mccabe Aidan 02/03/25 16:05:
Agree with assessment and plan. Follow-up nephro plans.
Original Note:
Vancomycin Assessment / Plan
- Assessment
Renal Function: Stable
Hemodialysis Schedule: Other (new start HD for JESUS)
Last Hemodialysis performed: Friday 02/02
WBC's are: Stable
In the past 24 hrs, patient has been: Hypothermic (Tmin 94.7, Tmax 97.8)
- Assessment - Therapeutic Drug Monitoring
Random Level: 25.1 - drawn ~19.75H after 750mg dose
- Dosing Plan
Dosing by Level: Hold off on dosing today
- Monitoring Plan
Random Level: 02/04 06
- Follow Up
Pharmacy will continue to follow.
Vancomycin Follow UP
- -
Patient Age: 79
Patient Sex: Male
Vancomycin Day #: 7
Indication: Skin And Soft Tissue
Requesting Provider: Dr. Archer
Pertinent Antimicrobial Allergies:
NKDA
Height / Weight:
Height 5 ft 9 in
Actual Weight 99.7 kg
Pertinent Past Medical History: BMI ~30.5, DM 2
- Vital Signs / Lab Results
Temp Pulse Resp BP Pulse Ox
97.8 F 123 20 104/67 96
02/03/25 08:00 02/03/25 08:34 02/03/25 08:34 02/03/25 08:34 02/03/25 08:41
Lab Results - Hematology
02/01/25 02/01/25 02/02/25
07:19 20:16 03:23
WBC 21.8 H 31.9 H 31.8 H
Lab Results - Chemistry
02/01/25 02/01/25 02/01/25
07:19 16:06 20:16
BUN 53 H 58 H Cancelled
Creatinine 3.3 H 3.9 H Cancelled
Estimated Creat Clear 21 18 Cancelled
Albumin
02/01/25 02/02/25 02/02/25
22:00 03:23 06:03
BUN 66 H 66 H 69 H
Creatinine 4.3 H* 4.7 H* 4.9 H*
Estimated Creat Clear 16 15 14
Albumin 3.6
02/02/25 02/03/25
21:01 00:54
BUN 60 H 64 H
Creatinine 4.4 H* 4.6 H*
Estimated Creat Clear 16 15
Albumin 3.3 L
02/02/25 02/02/25 02/02/25
0924 18:12 21:01
Lactic Acid 15.1 H* 12.9 H* 12.4 H*
02/03/25 02/03/25 02/03/25
00:54 05:06 07:44
Lactic Acid 13.0 H* 13.2 H* 13.8 H*
Lab Results - Urine
02/02/25
13:44
Urine Nitrite (Reflex) Negative
Leukocyte Esterase Rfl 2+ A
Ur Squamous Epith Cells 3-5
Microbiology Results
01/29/25 04:07 Blood Culture - Final
Blood/Venous No Growth - Final Report
01/28/25 12:24 Blood Culture - Final
Blood/Venous No Growth - Final Report
01/31/25 09:04 Wound Culture - Final
Foot - Left Staph aureus MRSA
Gram Stain - Final
02/01/25 19:47 Influenza Types A & B (GIFTY) - Final
Nasal Swab Negative for Influenza A & B, NAAT
Negative results must be combined with clinical observations
and patient history.
Nucleic Acid Amplification test (NAAT)performed on the
[employer] platform.
01/30/25 10:04 Wound Culture - Final
Foot - Left Staph aureus MRSA
Gram Stain - Final
Therapeutic Drug Monitoring
Random Vancomycin 25.1 ug/ml 02/03/25 08:19
[2025-02-03 10:26] LABS: B.E. -19.1 mmol/L; O2 Saturation % 99.6 % (94-98); PCO2 23 mmHg (35-48); PO2 128 mmHg (83-108)
[2025-02-03] MEDS: SODIUM BICARBONATE 1150 MEQ IV ×2 (10:26→18:32)
[2025-02-03 10:29] LABS: HCO3 8.0 mmol/L (21-28)
--- NOTE | 2025-02-03 10:30 | W.PN.NEPH.PH ---
Today's Communication / Plan
-
see plan
Assessment/Plan
-
IMP:
TME
Septic shock
Lactic acidosis
Sepsis 2/2 to Diabetic left foot cellulitis w/ lymphangitis
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
Acute kidney injury-baseline cr 0.9-1.1
Peripheral artery disease
hyponatremia
IDDM 2
Essential hypertension
Constipation
A-fib�permanent
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
HLD
Obesity due to excess calories
Plan:
A/w left leg cellulitis and sepsis
JESUS-remains anuric
UA gross hematuria in parikh bag-can remove catheter only made 65cc
suspect AIN vs ATN+YOVANY , vanc level 25
send serologies, patent renal art on recent CTA
will plan HD today
persistent lactic acidosis is concerning
multiple risk factors-sepsis, hypotension, use metformin(now off since 02/01), ileus?
noted PH 7.15, give 2 amps of bicarb
start bicarb gtt as no hypervolemia noted though wt is high from admit
CXR reviewed and he is NPO on NGT
titrate pressors to keep MAP>65
If L acid persists post HD-will start CRRT
avoid nephrotoxins
Antibiotics per infectious disease
Adjust all medications renally
Discussed with the patient, family at bedside, discussed with ICU and nursing
CC time spent 40min
-
-
Date of Service: February 03, 2025
CC / HPI / ROS
-
Chief Complaint:
JESUS
History of Present Illness:
anuria with parikh
k 4.9, bicarb low 7 still with L acid 13.8
ABG Ph 7.15
had BMs last night
vomited this morning s/p NGT to decompress stomach
on pressors for hypotension
Review of Systems:
altered, unable to provide history
hypothermic last night
Labs
-
Labs:
eGFR 12.34 02/03/25 00:54
Phosphorus 9.5 mg/dl (2.5-4.5) H 02/02/25 21:01
Lxe-V-Mdfedkvhhuk Pept > 06606 pg/ml 02/01/25 20:16
Albumin 3.3 g/dl (3.5-5.0) L 02/02/25 21:01
Physical Exam
-
Vital Signs:
Vital Signs
Temp Pulse Resp BP Pulse Ox
97.8 F 115 19 99/53 93
02/03/25 08:00 02/03/25 09:30 02/03/25 09:30 02/03/25 09:30 02/03/25 09:33
Cardiovascular:: Regular rate and rhythm (tachy)
Respiratory:: Bilateral: Coarse
Lung Excursion:: Normal
Abdomen:: Nontender and Soft
Extremity Edema:: +1: Left: and None: Right:
Parikh Catheter: Yes
--- NOTE | 2025-02-03 10:39 | W.PN.ANS.LIN ---
Anesthesia IV & A-Line Note
- IV/Arterial Line
Left Radial Arrow 20 (09/03)
Diagnosis: hypotension, septic shock
Allens test completed pre-procedure: Yes
A-Line Comments: Sterile technique as per standard protocol, Uneventful procedure, Seldinger technique used, Ultrasound guided insertion, Biopatch applied
A-line Insertion Start Time: 10:25
A-line Insertion Stop Time: 10:34
[2025-02-03] MEDS: NSS (PRESERVATIVE FREE) 10 ML IV (10:52)
[2025-02-03] MEDS: PROTONIX IV 40 MG IV (10:52)
[2025-02-03 11:09] LABS: Blood Urea Nitrogen 72 mg/dl (9-20); Calcium 7.7 mg/dl (8.4-10.2); Carbon Dioxide 5 mmol/L (22-30); Chloride 92 mmol/L (98-107); Estimated Creatinine Clearance 14 ml/min; Glucose 132 mg/dl (70-99); Magnesium 2.0 mg/dl (1.6-2.3); Potassium 4.9 mmol/L (3.5-5.1); Sodium 136 mmol/L (135-145); eGFR 10.90
--- NOTE | 2025-02-03 11:25 | W.PN.INTV ---
Today's Communication / Plan
Recommendations
Continue Levophed
Will add vasopressin
Start bicarbonate drip
Status post 2 A of bicarbonate earlier today
Dialysis later today
Continue antibiotics
Central line placement
Arterial line placement
N.p.o. for now
NG tube in place due to abdominal distention-suspect ileus.
Follow lactate levels and serial abdominal exams.
Continue heparin drip-follow PTT
May need to repeat CT abdomen pelvis depending on clinical progression.
Assessment
-
Patient is a 79-year-old male with previous history of diabetes, hypertension, A-fib on Xarelto, pacemaker placement since presenting to ER for infected fifth metatarsal with purulent drainage with resultant erythema on the dorsal aspect of the
foot progressing to generalized erythema and lymphangitis on the lower extremity to mid thigh over the past 4 days. He was taking oral Cipro course but was likely failing outpatient regiment. Admitted to on 01/28/2025. Podiatry was consulted
and performed a bedside I&D with concern for underlying osteomyelitis. He is placed on IV antibiotics with ID following. Developed worsening acute kidney injury and decreased urine output with worsening metabolic acidosis. HD catheter placed and
hemodialysis initiated on 02/02/2025. Lactic acid was noted as well. He has been hemodynamically stable not on pressors. He is transferred to ICU for worsening profound sepsis 02/02/25.
Severe sepsis, not on pressors
Infected R toe complicated by osteomyelitis and cellulitis of the lower extremity
Leukocytosis
Thrombocytosis
Anion gap severe metabolic acidosis
Acute kidney injury with oliguria now on HD 02/02/25
Hyperkalemia
Hyponatremia
Lactic acidosis
TME due to above
Conditions present prior to admission
PAF on Xarelto
Atypical syncope
Presence of cardiac pacemaker
Essential (primary) hypertension
Obesity
History of hepatitis r/t mononucleosis 1989
Diverticulosis/Colon polyps
IDDM
HLD
Spinal stenosis in cervical region s/p nerve stimulator implant
Herniated disc, cervical
Lumbar Laminectomy
Bilateral Arthroscopy Knees
Plan
- Patient is critically ill, requiring vasopressors, profound metabolic acidosis with worsening renal function.
-
Toxic metabolic encephalopathy/delirium due to above.
Has chronic pain issues in his lumbar and cervical spine
Pain/sedation: As needed but would hold off on significant amounts, sedating medications
RASS goals: 0
Septic shock:
Continue Levophed to maintain mean arterial blood pressure 65 mmHg
Central line will be placed-IR has been consulted
Arterial line in place
Vasopressin will be added
Hopefully hemodynamics improved as metabolic acidosis clears.
-
Profound metabolic acidosis with increased lactic acid.
CT abdomen pelvis without bowel ischemia
? Related to metformin.
2 A of bicarb were given earlier today with improvement on hemodynamics
Bicarbonate drip has been started 3 A on sterile water-150 cc an hour
Monitor for respiratory decompensation. High risk for volume overload
Dialysis today-discussed with nephrology.
-
Cardiac history reviewed--hypertension, A-fib on OAC/pacemaker
Prior ECHO reviewed indicating normal function
Resume home meds cautiously
Monitor on telemetry
Heparin drip-follow PTT
Cardiology following
Hypoxemic respiratory failure:
Suspect aspiration pneumonitis as the patient had vomiting earlier today
Chest x-ray without infiltrate
Continue oxygen supplementation to maintain pulse ox above 90%-currently 4 L.
Expiratory wheezing initially but not resolved likely post aspiration
-
Prior history of lung disease: None, but suspect untreated sleep apnea
AB.//11 indicating primary metabolic acidosis
Not the greatest candidate for noninvasive mechanical ventilation due to abdominal distention and vomiting.
Close monitoring
Hopefully with dialysis acidosis will improve, so far able to compensate.
-
NPO, resume diet when able
Abdominal distention this morning-abdomen chest x-ray ordered by me shows significant gastric distention
NG tube placed 02/03/2025 with increased output-suspect ileus
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
CT abdomen pelvis not demonstrating ischemic bowel disease
Head of the bed elevation
-
Aspiration precautions, HOB > 30 degrees
GI prophylaxis if indicated for mechanical ventilation >48 hours, prior history of GERD, stress ulcer formation in the critically ill
JESUS-hypotensive insult/contrast/sepsis.
Renal following, initiated on HD 02/02/2025
Creat at baseline 0.9-1.0, no history of renal disease
Void trials
Follow urine output, critical I/Os
Replete electrolytes as needed
Discussed with nephrology-bicarbonate drip.
Fever and increased WBC on presentation, suspect underlying right toe infection complicated by osteomyelitis and cellulitis
Podiatry and vascular consults were obtained
Underwent toe I&D 01/31/2025
Started on empiric antibiotics, ID following
Cultures sent/pending, Wound culture with MRSA
Follow fever trend, WBC count
Lactate elevated on admission, continue to trend until <2
Eventual toe amputation during this hospital stay-Podiatry following
CBC stable, no signs of bleeding or coagulopathy.
DVT prophylaxis as assessed based on risk, including mechanical SCDs
Can transfuse if indicated for Hb <7, plt < 10
H/o diabetes, can continue on home meds, SS for coverage
HbA1c 7.1, 7.6--indicating likely poor control
-
Dr. Cheema updated daughter and in detail 02/03/2025.
Case discussed extensively with nephrology.
Diagnostic Data
Chest X-Ray: 02/02/25- Placement of a right internal jugular dual-lumen dialysis catheter with the tip in the SVC. Stable left cardiac conduction device and spinal stimulator leads. Low lung volumes. Mild bibasilar atelectasis. Possible small layering
left pleural fluid. No pneumothorax. Stable enlargement of the cardiac silhouette.
CT Scan: AP 02/01/25- Multifocal atherosclerosis throughout the bilateral lower extremities. Diminished flow in the left anterior tibial artery with some apparent distal reconstitution, and diminished flow at the distal aspect of the left peroneal
artery at the level of the ankle. Short segment high-grade stenosis of the distal right SFA. Diminutive right calf vessels with multifocal stenoses. Small bilateral pleural effusions. Urinary bladder wall thickening with inflammatory fat stranding.
Recommend correlation with a urinalysis for acute cystitis.
Echo: 10/02/24- Normal left ventricular size and systolic function. Mild concentric left ventricular hypertrophy. No regional wall motion abnormalities are seen. LV ejection fraction is 60-65% by volumetric assessment. Thickened mitral valve leaflets
with mild mitral stenosis. Peak/mean gradients across the mitral valve are 11/4 mmHg, respectively. Trace mitral regurgitation. Mitral annular calcification. Thickened and calcified aortic valve with mild aortic stenosis. Peak/mean gradients across
the aortic valve are 18/10 mmHg, respectively. The aortic regurgitation. Tricuspid valve opens normally with trace tricuspid regurgitation. Estimated pulmonary artery pressure of 30 mmHg. Compared to prior study 09/22/2021 there is mild mild mitral
valve stenosis. There is now mild aortic valve stenosis. There is mild aortic valve insufficiency.
PFT's:
Reports and relevant images were personally reviewed.
Critical Care time 52mins -- The patient is admitted for acute critical illness for the treatment of vital organ failure and/or prevention of further life-threatening conditions. Total care includes time spent in review of history, physical exam,
medications, hemodynamic/ventilator parameters, laboratory data, imaging and discussion with house staff, pharmacy, respiratory therapy, director clinical information services, and nursing.
Subjective Dataa
Subjective Data
Date of Service:
Date of Service: February 03, 2025
Chief Complaint: Director Revenue Follow Up (Septic shock/acute kidney injury/metabolic acidosis)
Subjective:
Earlier this morning patient vomiting
Reports abdominal distention with mild discomfort
Reports shortness of breath
Review of Systems
Cardiopulmonary: Dyspnea, Dyspnea on Exertion, Cough and Wheezing
GI: Abdominal Pain and Vomiting
Objective Data
Data Reviewed
Vital Signs / I&O / Oxygen:
Vital Signs
Temp Pulse Resp BP Pulse Ox
97.8 F 115 19 99/53 93
02/03/25 08:00 02/03/25 09:30 02/03/25 09:30 02/03/25 09:30 02/03/25 09:33
Intake and Output
02/02/25 02/03/25 02/04/25
06:59 06:59 06:59
Intake Total 960 / 960 233.0 / 260.0 222.5 / 222.5
Output Total 65 / 65 200 / 200
Balance 960 / 960 168.0 / 195.0 22.5 / 22.5
SaO2 93
Nasal Cannula flow liters per 4
minute
Physical Exam
HEENT: Normocephalic
Cardiovascular: S1-S2 and Irregular Rhythm
Respiratory: Wheeze (Mild expiratory) and Accessory Resp Muscle Use (At rest)
GI: Soft, Distended (Tympanic) and Non Tender
Neurology: Awake, Alert, No Motor Deficits and Other (Follow simple command)
Skin: Other (Pale)
Labs/Micro/Reports
Lab Data
02/03/25 10:08
Laboratory Results
02/02/25 02/03/25 02/03/25
13:14 00:54 07:44
PT 27.8 H
INR 2.59
APTT 36.3 H 43.6 H 49.2 H
pH
pCO2
pO2
HCO3
O2 Delivery Level
02/03/25
10:13
PT
INR
APTT
pH 7.15 L*
pCO2 23 L
pO2 128 H
HCO3 8.0 L*
O2 Delivery Level
Microbiology
02/02/25 13:44 Urine Urine Culture - Final
NO GROWTH
01/29/25 04:07 Blood/Venous Blood Culture - Final
No Growth - Final Report
01/28/25 12:24 Blood/Venous Blood Culture - Final
No Growth - Final Report
01/31/25 09:04 Foot - Left Wound Culture - Final
Staph aureus MRSA
01/31/25 09:04 Foot - Left Gram Stain - Final
02/01/25 19:47 Nasal Swab Influenza Types A & B (GIFTY) - Final
Negative for Influenza A & B, NAAT
Negative results must be combined with clinical observations
and patient history.
Nucleic Acid Amplification test (NAAT)performed on the
[employer] platform.
01/30/25 10:04 Foot - Left Wound Culture - Final
Staph aureus MRSA
01/30/25 10:04 Foot - Left Gram Stain - Final
--- NOTE | 2025-02-03 11:25 | PTCARENOTE ---
Addendum entered by Ileana Dsouza RN 02/03/25 11:42:
vasopressin initiated, HD at bedside
Original Note:
ngt draining large amounts thick brown fluid. labs sent. left radial arterial line inserted by anesthesia. VAT RN at bedside to obtain additional access. awaiting [facility] for central IV access. critical labs resulted, orders received. 2 amps bicarb
given, IVF with bicarb initiated. parikh removed. daughter at bedside, updated with plan of care
[2025-02-03] MEDS: PITRESSIN 100 IV ×2 (11:36→18:32)
[2025-02-03] MEDS: MANNITOL 25% 12.5 GRAMS IV ×2 (12:22→13:46)
[2025-02-03 12:26] LABS: Glucose - Point of Care 134 mg/dl (70-99)
--- NOTE | 2025-02-03 12:37 | W.PN.CARDCBS ---
Addendum entered and electronically signed by Jd Oneill MD 02/03/25 13:50:
I saw and examined the patient.
The CYCLE SPECIALIST or PA's note was reviewed and I agree with the note.
Comment: Awake but confused
Neck: Supple, no JVD, HJR, carotids +2 B/L, no bruits bilaterally.
Heart: Non displaced PMI, RRR, no murmurs, No S3, S4, no rubs.
Lungs: Scattered rhonchi
Extremities: No clubbing, cyanosis or edema bilaterally.
Neuro: Awake but confused
Heart rate remains poorly controlled in atrial fibrillation/flutter. Recheck ECG. Consider IV amiodarone when triple-lumen has been placed but access is limited at present. Discussed with ICU nursing. Volume control by dialysis at present.
Original Note:
Today's Communication / Plan
-
Recheck ECG, orders placed by me. If QTc is improved could consider adding amiodarone for adjunct rate control
Volume management by dialysis which is managed by nephrology
EF continues to be preserved on echo
Impression / Plan
-
PCP: Dr. Roman Macedo
Network Systems Administrator: Dr. Munoz
Impression:
Admitted with LLE/left foot cellulitis 01/28/2025
Sepsis related to above
JESUS requiring hemodialysis
Peripheral vascular disease
Diabetes mellitus type 2
Hypertension
Permanent atrial fibrillation, RVR
Acute on chronic HFpEF
Dyslipidemia
Obesity
Paroxysmal complete heart block status post dual-chamber pacemaker 2021 ([employer])
Echo 08/2021: EF 55-60, mild concentric LVH, small pericardial effusion
Echo 10/2024: EF 65%, mild MS, mild with gradient 10 mmHg, PASP 30 mmHg
Echo 02/02/2025: EF 60 to 65%, stage II diastolic dysfunction, normal RV size and function
LHC 09/07/21: LAD is on the smaller side and is calcified with diffuse disease and reaches the apex. The second OM is small and has a 40% ostial stenosis. The distal OM 3 inferior branch has an ostial 50% stenosis. RCA has mid 50% stenosis. Given that
this was the area that was positive and the stress test it was decided to proceed with IFR. iFRs of this lesion were serially negative around 0.92 indicating a nonobstructive lesion. Conclusions: moderate nonobstructive coronary atherosclerosis,
normal LV function, mild .
Recommendations:
-Patient initially admitted with LLE and foot cellulitis on 01/28/2025 and was given IVF's for sepsis and noted to have JESUS leading to emergent dialysis. Cardiology was later consulted for acute on chronic HFpEF.
-Patient received a total of just over 5 L IVF's this admission. Patient weighed 206 lbs on bed scale weight 01/29/2025 and weight is up to 219 lbs on bed scale weight from 02/03/2025. Nephrology following and HD scheduled for 02/03/2025
-Patient was not taking a loop diuretic prior to admission. Volume being managed with dialysis that is supervised by nephrology
-EF 65% by echo 10/2024 and stable by repeat full study echo on 02/02/2025
-Outpatient doses of HCTZ 50 mg daily, hydralazine 25 mg BID and lisinopril 20 mg BID are all on hold due to JESUS and hypotension
-Patient has known permanent A-fib, outpatient dose of Toprol-XL 25 mg BID is on hold due to hypotension
-Telemetry reviewed by me on 02/03/2025 shows A-fib and average HR is 110-120. Patient also requiring Levophed at 16 mcg/min and vasopressin at 0.03 units/min for hypotension. Cannot add BB or CCB at this time. Could consider adding amiodarone for
adjunct rate control. LFTs were normal earlier this admission, but QTc 500 ms on ECG in the setting of rapid A-fib on 02/01/25.
-Recheck ECG, orders placed by me.
HPI: Patient is a pleasant 71-year-old male with a past medical history significant for permanent atrial fibrillation, paroxysmal complete heart block status post dual-chamber pacemaker 2021, hypertension, hyperlipidemia, diabetes mellitus, prior
syncope, nerve stimulator, osteoarthritis who initially presented due to worsening lower extremity infection. Patient was noted to have significant atherosclerosis of bilateral lower extremities. Patient's renal function began to worsen and
patient with significant leukocytosis. Patient and family had reported increasing shortness of breath, decreased oral intake, and nausea. Since admission, patient undergoing treatment of infection with IV antibiotics however, renal function
continued to worsen. Patient underwent implant of dialysis catheter on 02/02/2025 with initiation of hemodialysis. Cardiology consulted due to elevated troponin and elevated BNP. Patient's initial troponin was noted to be 0.5 which is down trended
to 0.35 and 0.315. In discussion with patient and family, he notes some intermittent variable chest discomfort which occasionally occurs with position changes and at rest but no reported chest pain with activity or exertion. Prior to admission,
patient was active and denied chest pain shortness of breath or palpitations with activity or exertion. Additionally, patient's BNP checked on 02/01/2025 was greater than 27,000. Patient is a non-smoker, no alcohol, no illicits. Patient without
significant family history.
Progress Note - Network Systems Administrator
Subjective
Date of Service: February 03, 2025
Ongoing SOB
Objective
Labs:
02/03/25 10:08
Labs
Hgb 11.7 g/dL (13.0-18.0) L 02/02/25 03:23
Hct 35.7 % (39.0-52.0) L 02/02/25 03:23
Plt Count 428 10^3/uL (130-400) H 02/02/25 03:23
PT 27.8 Sec (11.4-14.6) H 02/03/25 00:54
INR 2.59 02/03/25 00:54
APTT 49.2 Sec (23.4-35.0) H 02/03/25 07:44
Sodium 136 mmol/L (135-145) 02/03/25 10:08
Potassium 4.9 mmol/L (3.5-5.1) 02/03/25 10:08
BUN 72 mg/dl (9-20) H 02/03/25 10:08
Creatinine 5.1 mg/dL (0.7-1.3) H* 02/03/25 10:08
Glucose 132 mg/dl (70-99) H 02/03/25 10:08
Troponins
02/01/25 02/02/25 02/02/25
20:16 03:23 09:38
Troponin I 0.528 H* 0.358 H* D 0.315 H*
02/02/25
13:14
Troponin I 0.253 H*
Vital Signs and I&O:
Vital Signs
Temp Pulse Resp BP Pulse Ox
97.5 F 120 15 102/60 96
02/03/25 12:00 02/03/25 11:30 02/03/25 11:30 02/03/25 10:00 02/03/25 11:50
Vital Signs
Temp Pulse Resp BP Pulse Ox
97.5 F 120 15 102/60 96
02/03/25 12:00 02/03/25 11:30 02/03/25 11:30 02/03/25 10:00 02/03/25 11:50
Intake & Output
02/01/25 02/02/25 02/03/25 02/04/25
06:59 06:59 06:59 06:59
Intake Total 480 / 480 960 / 960 233.0 / 260.0 688.0 / 688.0
Output Total 200 / 200 65 / 65 800 / 800
Balance 280 / 280 960 / 960 168.0 / 195.0 -112.0 / -112.0
--- NOTE | 2025-02-03 12:55 | PTCARENOTE ---
vasopressin, levophed per work list. patient incontinent multiple watery brown stools. fecal management system inserted. patient reassessed. no respiratory distress, wheezes resolved. ngt continues to drain large amounts brown fluid. continues to
hallucinate. seeing bugs in room.
[2025-02-03] MEDS: HEPARIN 25000 UNITS/250 ML IV (14:05)
[2025-02-03 14:22] LABS: APTT 49.9 Sec (23.4-35.0)
--- NOTE | 2025-02-03 14:41 | PTCARENOTE ---
Addendum entered by Ileana Dsouza RN 02/03/25 14:55:
am cbc sent. data analyst updated
Original Note:
reviewed plan with Dr Quintana. she requests 1600 lactic be drawn@1700. tolerating HD, levophed per work list. OR staff updated. made aware patient needs to go to [facility] post HD.
--- NOTE | 2025-02-03 15:34 | PTCARENOTE ---
HD completed. weaning levophed. awaiting call from [facility]. fecal management system intact, no leakage. ngt continues to drain large amounts
[2025-02-03 15:44] LABS: Hematocrit 33.2 % (39.0-52.0); Hemoglobin 11.2 g/dL (13.0-18.0); Mean Corp Hgb Conc. 33.7 g/dL (33.0-37.0); Mean Corpuscular Volume 89.5 fL (80.0-94.0); Platelet Count 456 10^3/uL (130-400); Red Cell Dist. Width 14.6 % (11.5-14.5)
--- NOTE | 2025-02-03 15:57 | W.PN.NEPH.HD ---
Assessment
-
pt seen during HD
vitals stable on pressors
limited UF only
check labs later post HD if persistent acidosis likely CRRT then
noted potential OR today for inf control
Progress Note - Hemodialysis
-
Date of Service: February 03, 2025
Duration: 45 minutes and 2 hours
Potassium Bath: 2
Calcium Bath: 2.5
Opti-Dialyzer: 160
Ultrafiltration: Other (0.5kg)
Blood Flow: 350
Dialysate Flow: 600
Heparin: no
EPO: no
--- NOTE | 2025-02-03 16:01 | W.PN.ID1 ---
Date of Service
Date of Service: February 03, 2025
Today's Communication
Add cefepime.
Continue Vancomycin.
Assessment / Plan
# Multifactorial including septic shock on 2 pressors
# Leukocytosis significantly worse
# Suspect pneumonia
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
.spine stimulator incompatible with MRI.
# PAD, left 5th ischemic toe
. s/p CT angiogram
# JESUS
. HD started 02/02
. Urine eos neg
# Acute pulm edema from JESUS
# DM2 with neuropathy
- Blood cx's neg. Ucx neg.
- Wound cx MRSA
- Add cefepime 1g IV q24 to cover for suspected PNA.
- Continue Vancomycin,dosing by level
- Trend WBC/vitals.
- Pt critically ill in ICU.
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
Diabetes mellitus type 2
Hypertension
Atrial fibrillation on Xarelto
pacemaker placement
Chronic pain with spinal stimulator, not active
Chronic left leg weakness due to history of back injury during lumbar procedure 2019
Lumbar laminectomy
Chief Complaint
-: Other (osteo)
Subjective / Review of Systems
Receiving HD. No pain.
Vital Signs / Physical Exam
Vital Signs
Vital Signs
Temp Pulse Resp BP Pulse Ox
97.7 F 123 13 102/60 97
02/03/25 15:34 02/03/25 15:30 02/03/25 15:30 02/03/25 10:00 02/03/25 15:30
Physical Exam
Constitutional: Acutely Ill
Eyes: No Conjunctival Hemorrhage and Sclera Anicteric
Cardiovascular: S1/S2 (tachycardic)
Pulmonary: Rales
Gastrointestinal: Soft, Non Tender and Non Distended
Extremities: Edema
Neurological: Awake
Lines: HD Cath
Objective Data
Lab Data
Lab Results
02/03/25 14:51
ESR 78 mm/hour (0-20) H 01/28/25 12:23
PT 27.8 Sec (11.4-14.6) H 02/03/25 00:54
INR 2.59 02/03/25 00:54
APTT 49.9 Sec (23.4-35.0) H 02/03/25 14:03
Estimated Creat Clear 14 ml/min 02/03/25 10:08
Lactic Acid 14.6 mmol/L (0.7-2.0) H* 02/03/25 12:16
Total Bilirubin 0.9 mg/dl (0.2-1.3) 02/02/25 21:01
AST 31 U/L (17-59) 02/02/25 21:01
ALT < 30 U/L (0-50) 02/02/25 21:01
Alkaline Phosphatase 133 U/L (38-126) H 02/02/25 21:01
C-Reactive Protein 228.10 mg/L (0.0-10.00) H 01/28/25 12:23
Most recent labs reviewed.
Micro Results:
02/02/25 13:44 Urine Culture - Final
Urine NO GROWTH
01/29/25 04:07 Blood Culture - Final
Blood/Venous No Growth - Final Report
01/28/25 12:24 Blood Culture - Final
Blood/Venous No Growth - Final Report
01/31/25 09:04 Wound Culture - Final
Foot - Left Staph aureus MRSA
Gram Stain - Final
02/01/25 19:47 Influenza Types A & B (GIFTY) - Final
Nasal Swab Negative for Influenza A & B, NAAT
Negative results must be combined with clinical observations
and patient history.
Nucleic Acid Amplification test (NAAT)performed on the
[employer] platform.
01/30/25 10:04 Wound Culture - Final
Foot - Left Staph aureus MRSA
Gram Stain - Final
01/28/25 17:44 MRSA Screen - Final
Nose No Methicillin Resistant Staphylococcus aureus isolated.
01/28/25 Left foot XRAY: No acute osseous abnormality. Mild soft tissue swelling along the lateral forefoot.
02/01/25 CXR: Hazy increased density over the left lower hemithorax, probably mainly due to a posteriorly layering pleural effusion.
02/03/25 CXR: Parenchymal opacity within the right lower lung and the left mid to lower lung, similar to recent radiograph. Main differential considerations of atelectasis and/or pneumonia.
--- NOTE | 2025-02-03 16:09 | PTCARENOTE ---
Addendum entered by Ileana Dsouza RN 02/03/25 17:04:
social work associate and scientific process operator updated with critical labs
Original Note:
communicated with podiatry re:possible OR today:per podiatry, cleared by social work associate., updated on need for central line placement in IRAD. TT to Dr Quintana. notified of plan for OR today. she requested lactic and BMP be sent now. family updated at
bedside
--- NOTE | 2025-02-03 16:10 | CM ---
HD, IV/Cefepime, Levophed, Bicarb gtt, NPO, NGT. Discharge POA: TBD.
[2025-02-03] MEDS: STERILE WATER FOR INJECTION 10 ML IV (16:18)
[2025-02-03] MEDS: MAXIPIME 1000 MG IV (16:18)
--- NOTE | 2025-02-03 16:32 | W.PN.UPDATE ---
Update Note
Progress Note Update
Tolerated dialysis-repeat labs later. Acidosis likely improved.
Continue bicarbonate drip.
Continue Levophed
Leukocytosis worsening. Noted.
Source control is needed. Okay to proceed with foot surgery at high risk.
Patient will remain at critical care level.
High risk situation.
[2025-02-03 17:00] LABS: Blood Urea Nitrogen 42 mg/dl (9-20); Calcium 7.2 mg/dl (8.4-10.2); Carbon Dioxide 15 mmol/L (22-30); Chloride 92 mmol/L (98-107); Estimated Creatinine Clearance 24 ml/min; Glucose 103 mg/dl (70-99); Potassium 3.8 mmol/L (3.5-5.1); Sodium 135 mmol/L (135-145); eGFR 20.61
[2025-02-03 17:36] LABS: Glucose - Point of Care 101 mg/dl (70-99)
--- NOTE | 2025-02-03 18:25 | PTCARENOTE ---
awaiting IRAD for line, then plan for OR after line placed
--- NOTE | 2025-02-03 19:00 | PTCARENOTE ---
Rec'd pt awake, confused to place/ time, follows commands, Afib w/ occas pvc, l rad dylan w/ good wave form, flushes well, zeroed, to keep MAP > 65;on levo at 8mic, vaso at 0.03 units & hep at 1600 units/hr, distal pulses via doppler, denies pain,
O2 at 4 liters nc, lungs decr, sat 95, hypo bowel sounds, fecal mgmt sys to str mdrainage bag draining brown liquid stool, R дмитрийm to low inter suction draining brown liquid, irrigated q4hr w/ 30 tap hwo, no n/v, anuric; trans ported to IR via bed
on monitor & o2
--- NOTE | 2025-02-03 19:20 | PTCARENOTE ---
patient transported to IR with oncoming RN. report given to oncoming RN in IRAD
[2025-02-03] MEDS: DILAUDID 0.5 MG IV (19:27)
--- NOTE | 2025-02-03 19:47 | W.PN.IRAD.PR ---
Procedure Note
-
Attempted placement LIJ central venous catheter unsuccessful secondary to occlusion brachiocephalic vein. RIJ central venous catheter placed under US and fluoro guidance in tandem with indwelling HD catheter. The catheter is ready for use.
--- NOTE | 2025-02-03 20:00 | PTCARENOTE ---
Returned from IR/ w R IJ TLC, all tubings changed
[2025-02-03 20:28] LABS: APTT 129.1 Sec (23.4-35.0)
--- NOTE | 2025-02-03 20:50 | W.PN.UPDATE ---
Update Note
Progress Note Update
Patient seen pre-op. Cleared for OR - now with central venous catheter in place. Chart reviewed. Case discussed with roll clamp operator pre op. Discussed need for source control. Plan for left 5th ray amputation. Consent reviewed. Patient understands
the risks associated with surgery including but not limited to non healing wounds, need for additional surgery, further amputation, limb loss, furhter infection, .
--- NOTE | 2025-02-03 21:00 | PTCARENOTE ---
To OR on monitor & O2 6 liters nc-transported by Anesthesia
--- NOTE | 2025-02-03 22:06 | W.PN.UPDATE ---
Update Note
Progress Note Update
Patient underwent left partial 5th ray amputation. Minimal bleeding. Bone and soft tissue cultures pending. Proximal 5th metatarsal bone margin pending. Site is packed open - I will change site tomorrow.
--- NOTE | 2025-02-03 22:15 | PTCARENOTE ---
pt returned from OR, drowsy but arousable, able to move toes on left foot, ; left foot dsg dry/ intact, pedal pulse on left via doppler, left foot cool; weaning levo as yann
[2025-02-03 22:35] LABS: Hematocrit 30.8 % (39.0-52.0); Hemoglobin 10.5 g/dL (13.0-18.0)
--- NOTE | 2025-02-03 22:57 | PTCARENOTE ---
vasopressin off per Khalif Fierro, CARBURIZER
[2025-02-03 23:12] LABS: Blood Urea Nitrogen 53 mg/dl (9-20); Calcium 6.9 mg/dl (8.4-10.2); Carbon Dioxide 15 mmol/L (22-30); Chloride 90 mmol/L (98-107); Estimated Creatinine Clearance 20 ml/min; Glucose 125 mg/dl (70-99); Potassium 4.0 mmol/L (3.5-5.1); Sodium 132 mmol/L (135-145); eGFR 17.13
[2025-02-03] MEDS: CALCIUM GLUCONATE 130 MG IV (23:44)
--- NOTE | 2025-02-03 23:49 | PTCARENOTE ---
3 gm fan gluc hung over 1hr per order
[2025-02-03 23:54] LABS: Glucose - Point of Care 132 mg/dl (70-99)
[2025-02-04] VITALS (8 sets, daily range): BP systolic 115–147; BP diastolic 53–83; BMI 33.0
--- NOTE | 2025-02-04 | PTCARENOTE ---
sys reviewed, requests no pain med, left foot dsg dry, CHG bath done, linens changed
[2025-02-04] MEDS: DILAUDID 0.5 MG IV ×3 (01:05→15:29)
--- NOTE | 2025-02-04 01:05 | PTCARENOTE ---
dilaudid 0.5 mg iv given for back pain ( chronic)
[2025-02-04] MEDS: SODIUM BICARBONATE 1150 MEQ IV ×2 (01:59→09:03)
[2025-02-04] MEDS: LEVOPHED 250 IV ×2 (02:05→18:13)
[2025-02-04 03:18] LABS: Hematocrit 30.9 % (39.0-52.0); Hemoglobin 10.5 g/dL (13.0-18.0); Mean Corp Hgb Conc. 34.0 g/dL (33.0-37.0); Mean Corpuscular Volume 88.8 fL (80.0-94.0); Platelet Count 406 10^3/uL (130-400); Red Cell Dist. Width 14.7 % (11.5-14.5)
[2025-02-04 03:23] LABS: APTT 136.5 Sec (23.4-35.0)
--- NOTE | 2025-02-04 03:32 | PTCARENOTE ---
ptt 136.5, hep off x 1hr
--- NOTE | 2025-02-04 03:57 | PTCARENOTE ---
sys reviewed, changes noted
[2025-02-04 04:02] LABS: Blood Urea Nitrogen 60 mg/dl (9-20); Calcium 7.6 mg/dl (8.4-10.2); Carbon Dioxide 20 mmol/L (22-30); Chloride 89 mmol/L (98-107); Estimated Creatinine Clearance 19 ml/min; Glucose 148 mg/dl (70-99); Potassium 4.2 mmol/L (3.5-5.1); Sodium 133 mmol/L (135-145); eGFR 16.03
--- NOTE | 2025-02-04 04:33 | PTCARENOTE ---
heparin gtt restarted at 1300 units per protocal
[2025-02-04] MEDS: NOVOLOG FLEXPEN-LOW RESISTANCE 1 UNITS SC ×3 (05:22→23:25)
[2025-02-04 05:32] LABS: Glucose - Point of Care 152 mg/dl (70-99)
[2025-02-04] MEDS: SENOKOT-S PO ×2 (07:40→19:12)
[2025-02-04] MEDS: METAMUCIL, KONSYL PO ×2 (07:40→19:12)
--- NOTE | 2025-02-04 07:52 | W.PN.ANS.POP ---
Anesthesia Post Operative
- Anesthesia Post Op Note
Vital Signs Stable-See Nursing Note: Yes
Airway Patent: Yes
Adequate Pain Control: Yes
Change in Mental Status: No
Current Postoperative Nausea & Vomiting: No
Anesthesia Complications: No
General Anesthetic Recall: No
Unplanned Admission: No
Post Op Hydration Adequate: Yes
--- NOTE | 2025-02-04 07:59 | W.PN.HOSP.TC ---
Today's Communication/Plan
-
Left upper extremity venous Doppler ultrasound
Continue antibiotics
Await cultures
Resume diet if okay with consultants.
Assessment / Plan
Assessment / Plan
Gen-awake, alert, NAD
HEENT-NC, AT, anicteric, clear oral mm
Neck-supple
CV-reg, no M, +S1/S2
Lungs-clear B/L
Abd-soft, NT, ND
Ext-no edema
Musculoskeletal-no cyanosis, clubbing, left foot dressing intact
Skin-warm and dry
Neuro-grossly non-focal
Psych-calm, cooperative
Acute TME -due to sepsis, shock, critical illness.
Septic shock due to to left fifth metatarsal abscess -possible underlying osteomyelitis. IV vancomycin/cefepime per ID. Continue Levophed for shock, wean down as able. Off vasopressin. Blood cultures negative so far. Wound culture shows MRSA.
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
Leukocytosis improving. Afebrile.
Unable to have MRI due to spinal stimulator not active
Wound culture growing MRSA
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 Podiatry following. Bone and tissue cultures pending.
Lactic acidosis due to sepsis
Lactic acid 15.1
Differential diagnosis include metformin induced versus worsening sepsis
Metformin discontinued 02/01
MAP has been consistently greater than 65
Acute kidney injury -due to septic shock. Anuric. Gonzalez catheter in place. Etiology of JESUS most likely due to septic shock and medications and less likely due to contrast-induced nephropathy as contrast exposure was on 02/01, creatinine was 3.3
morning of 02/01.
Appreciate nephrology input, dialysis started 02/02
High anion gap metabolic acidosis due to septic shock, lactic acidosis. Bicarbonate improving, 20 this morning. Lactic acid improving. Remains on sodium bicarbonate IV drip.
Hold metformin, lisinopril, hydrochlorothiazide, trend creatinine, no nephrotoxic drugs or NSAIDs
LUE edema -check venous Doppler ultrasound, rule out DVT.
Peripheral artery disease
Appreciate vascular surgery input, had CTA with left lower extremity runoff today
Originally planned for left lower extremity angiogram Sunday 02/04, but will hold due to renal failure
Acute on chronic heart failure with a preserved ejection fraction
Cardiology following, continue dialysis as per nephrology
Troponin elevation -suspect acute nonischemic myocardial injury due to septic shock. Troponin trending down.
Permanent atrial fibrillation with rapid ventricular response
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
Continue IV heparin.
Hyponatremia -monitor for now. Sodium 133 today.
Hyperphosphatemia -due to JESUS.
DM 2 with hyperglycemia
Hemoglobin A1c 7.1 on 01/13/2025
Hold metformin 1000 mg daily due to JESUS
Will reduce basal insulin to 5 units at bedtime, continue sliding scale insulin
Essential hypertension -meds on hold for hypotension, shock.
Constipation -last bowel movement 02/03.
Continue laxatives.
Hyperlipidemia
-Continue lovastatin 40 mg at bedtime
Obesity due to excess calories
- Affects all aspects of care
DVT prophylaxis -IV heparin drip
Full code
Updated son at the bedside.
Anticipated Discharge: > 48 hours
Subjective/Interval History
-
Date of Service: February 04, 2025
Patient seen and examined. No complaints.
Objective Data
-
Labs:
Laboratory Results
02/03/25 02/03/25 02/04/25
20:09 22:27 02:51
WBC 33.3 H
Hgb 10.5 L 10.5 L
Hct 30.8 L 30.9 L
Plt Count 406 H
APTT 129.1 H 136.5 H
Sodium 132 L 133 L
Potassium 4.0 4.2
Chloride 90 L 89 L
Carbon Dioxide 15 L 20 L
BUN 53 H 60 H
Creatinine 3.5 H 3.7 H
Glucose 125 H 148 H
Calcium 6.9 L* 7.6 L
02/04/25
10:30
WBC
Hgb
Hct
Plt Count
APTT Pending
Sodium
Potassium
Chloride
Carbon Dioxide
BUN
Creatinine
Glucose
Calcium
Vital Signs:
Vital Signs
Temp Pulse Resp BP Pulse Ox
97.7 F 113 21 136/68 96
02/04/25 03:56 02/04/25 07:30 02/04/25 07:30 02/04/25 03:56 02/04/25 07:30
I&O
02/03/25 02/04/25 02/05/25
06:59 06:59 06:59
Intake Total 233.0 / 260.0 4661.6 / 4839.6 178 / 178
Output Total 65 / 65 2450 / 2450
Balance 168.0 / 195.0 2211.6 / 2389.6 178 / 178
Review of Systems
-
History Source: Patient
All other systems: Reviewed and negative
[2025-02-04] MEDS: PROTONIX IV 40 MG IV (08:01)
[2025-02-04] MEDS: NSS (PRESERVATIVE FREE) 10 ML IV (08:01)
--- NOTE | 2025-02-04 08:10 | W.PN.VS ---
Addendum entered and electronically signed by Mathew Gonzalez III, MD 02/04/25 13:55:
This patient was seen and examined in collaboration with CAPRICE Horvath. I agree with the history and physical exam as well as the assessment and plan. I have the following additions:
Events noted
Patient currently without complaints
Reports no pain in the left foot
Dressing is clean and dry
Discussed case with Dr. Guzman this morning
Will obtain noncontrast CT of the left lower extremity to ensure there is no evidence of undrained collection or gas more proximal in the foot or ankle.
IV antibiotics
Continue with ICU care
Nephrology/HD
Can continue to follow closely if imaging negative and we believe we have obtained source control. Will need to have a discussion with nephrology and patient/family regarding LLE a'gram and additional contrast administration in the context of the
current JESUS/HD requirement. I discussed this with patient/son (bedside) and (telephone) this AM. For now we will follow his clinical trajectory. Unfortunately his risk of limb loss is high.
Signed:
Mathew Gonzalez III, MD
Vascular Surgery
[facility]
Original Note:
Today's Communication / Plan
-
Patient seen and examined at bedside with Dr. Mathew Gonzalez III, below plan reviewed with attending.
Assessment/Plan
-
Assessment: 79-year-old male admitted for left lower extremity cellulitis with hospitalization now complicated by JESUS and sepsis
Plan:
Will have to cancel plans for angiogram today given patient's JEUSS and subsequent need of hemodialysis for support
Given patient had elevated white count and lactic acid, although both are now trending down, would advise CT of lower extremity to evaluate for abscess to ensure that we not have source control following podiatry's left fifth digit ray amputation
Subjective Data
-
Date of Service: February 04, 2025
Patient seen and examined bedside with Dr. Mathew J. Gonzalez III, patient interactive and endorses that he overall feels weak. He indicates that he is most concerned right now with being given food but knows that he cannot because of constipation/NG
tube. Patient reports that he has no sensation (this is at baseline) at left foot, plus he indicates he is in no pain following amputation of left fifth digit.
Objective Data
-
Vital Signs
Temp Pulse Resp BP Pulse Ox
97.7 F 113 21 136/68 96
02/04/25 08:00 02/04/25 07:30 02/04/25 07:30 02/04/25 03:56 02/04/25 07:30
Intake and Output
02/03/25 02/04/25 02/05/25
06:59 06:59 06:59
Intake Total 233.0 / 260.0 4661.6 / 4839.6 178 / 178
Output Total 65 / 65 2450 / 2450
Balance 168.0 / 195.0 2211.6 / 2389.6 178 / 178
Intake:
Oral fluids 100 / 100
IV fluids (Total) 133.0 / 160.0 4251.6 / 4429.6 178 / 178
Sterile Water For Injection 2950 / 3100 150 / 150
1000 ml 1,000 ml @ 150 mls/hr
IV .[id number] DOMENIC with Sodium
Bicarbonate 150 Meq Rx#:
[id number]
fan gluc 130 / 130
heparin 118 / 130 340 / 353 13 /
levophed 15.0 / 30.0 727.6 / 742.6 15 / 15
vasopressin 104 / 104
IV piggybacks 40 / 40
Amount instilled into GI Tube ( 150 / 150
Total)
[place] Sump 150 / 150
Fecal management system 120 / 120
irrigation (mL)
Rectum 120 / 120
Blood Products 100 / 100
Albumin 25% 100 / 100
Output:
Emesis 200 / 200
Liquid stool amount 700 / 700
Rectum 700 / 700
Gastrointestinal tube output ( 155 / 1550
Total)
[place] Sump 1550 / 1550
Urine, Gonzalez 65 / 65 0 / 0
Urine, Voided 0 / 0
Other:
Number of unmeasured liquid
stools
Rectum 3
Lab Results
02/04/25 02:51
02/04/25 02:51
Calcium 7.6 mg/dl (8.4-10.2) L 02/04/25 02:51
Phosphorus 9.5 mg/dl (2.5-4.5) H 02/02/25 21:01
Magnesium 2.0 mg/dl (1.6-2.3) 02/03/25 10:08
Total Bilirubin 0.9 mg/dl (0.2-1.3) 02/02/25 21:01
AST 31 U/L (17-59) 02/02/25 21:01
ALT < 30 U/L (0-50) 02/02/25 21:01
Alkaline Phosphatase 133 U/L (38-126) H 02/02/25 21:01
Total Protein 6.0 g/dl (6.3-8.2) L 02/02/25 21:01
Albumin 3.3 g/dl (3.5-5.0) L 02/02/25 21:01
Physical Exam
-
Resting in bed comfortably
Tachycardia on monitor heart rate 100-1 teens
No dyspnea patient receiving submental oxygen via nasal cannula
NG tube in place
Left foot with postoperative dressing clean, dry, and intact
--- NOTE | 2025-02-04 08:28 | PHA.VAN.FU ---
Addendum entered and electronically signed by Jacinda Mccabe [facility] 02/04/25 10:57:
Agree with assessment and plan below.
Original Note:
Vancomycin Assessment / Plan
- Assessment
Renal Function: Stable
Hemodialysis Schedule: Other (new start HD for JESUS)
WBC's are: Trending Down
In the past 24 hrs, patient has been: Afebrile
Concomitant Antimicrobials: cefepime
- Assessment - Therapeutic Drug Monitoring
Random Level: 21.5 - drawn ~26.5H after dose of 750mg
- Dosing Plan
Dosing by Level: Hold off on dosing today
- Monitoring Plan
Random Level: 02/05 600
- Follow Up
Pharmacy will continue to follow.
Vancomycin Follow UP
- -
Patient Age: 79
Patient Sex: Male
Vancomycin Day #: 8
Indication: Skin And Soft Tissue
Requesting Provider: Dr. Archer/Dr. Maguire
Pertinent Antimicrobial Allergies:
NKDA
Height / Weight:
Height 5 ft 9 in
Actual Weight 101.3 kg
Pertinent Past Medical History: BMI ~30.5, DM 2
- Vital Signs / Lab Results
Temp Pulse Resp BP Pulse Ox
97.7 F 113 21 136/68 98
02/04/25 08:00 02/04/25 07:30 02/04/25 07:30 02/04/25 03:56 02/04/25 08:00
Lab Results - Hematology
02/01/25 02/01/25 02/02/25
07:19 20:16 03:23
WBC 21.8 H 31.9 H 31.8 H
02/03/25 02/04/25
14:51 02:51
WBC 41.3 H* 33.3 H
Lab Results - Chemistry
02/01/25 02/01/25 02/01/25
07:19 16:06 20:16
BUN 53 H 58 H Cancelled
Creatinine 3.3 H 3.9 H Cancelled
Estimated Creat Clear 21 18 Cancelled
Albumin
02/01/25 02/02/25 02/02/25
22:00 03:23 06:03
BUN 66 H 66 H 69 H
Creatinine 4.3 H* 4.7 H* 4.9 H*
Estimated Creat Clear 16 15 14
Albumin 3.6
02/02/25 02/03/25 02/03/25
21:01 00:54 10:08
BUN 60 H 64 H 72 H
Creatinine 4.4 H* 4.6 H* 5.1 H*
Estimated Creat Clear 16 15 14
Albumin 3.3 L
02/03/25 02/03/25 02/04/25
16:04 22:27 02:51
BUN 42 H 53 H 60 H
Creatinine 3.0 H 3.5 H 3.7 H
Estimated Creat Clear 24 20 19
Albumin
02/02/25 02/02/25 02/02/25
09:24 18:12 21:01
Lactic Acid 15.1 H* 12.9 H* 12.4 H*
02/03/25 02/03/25 02/03/25
00:54 05:06 07:44
Lactic Acid 13.0 H* 13.2 H* 13.8 H*
02/03/25 02/03/25 02/03/25
10:08 12:16 16:04
Lactic Acid 13.7 H* 14.6 H* 10.8 H*
02/03/25 02/03/25 02/04/25
20:09 22:27 02:51
Lactic Acid 9.6 H* 9.1 H* 8.0 H*
02/04/25
06:14
Lactic Acid 7.4 H*
Microbiology Results
02/02/25 13:44 Urine Culture - Final
Urine NO GROWTH
01/29/25 04:07 Blood Culture - Final
Blood/Venous No Growth - Final Report
01/28/25 12:24 Blood Culture - Final
Blood/Venous No Growth - Final Report
01/31/25 09:04 Wound Culture - Final
Foot - Left Staph aureus MRSA
Gram Stain - Final
Therapeutic Drug Monitoring
Random Vancomycin 21.5 ug/ml 02/04/25 02:51
--- NOTE | 2025-02-04 09:25 | W.PN.NEPH.PH ---
Today's Communication / Plan
-
HD
Assessment/Plan
-
IMP:
TME
Septic shock
Lactic acidosis
Sepsis 2/2 to Diabetic left foot cellulitis w/ lymphangitis
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
Acute kidney injury-baseline cr 0.9-1.1
Peripheral artery disease
hyponatremia
IDDM 2
Essential hypertension
Constipation
A-fib�permanent
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
HLD
Obesity due to excess calories
Plan:
IHD today, third treatment
follow lactate
wean pressors as allowed
follow bladder scan
serologies neg except for low C3 consistent with staph sepsis
d/w family at bedside (son) and on speakerphone. They are concerned that he will have a difficult time processing negative information and would like to be the ones to relay clinical information to him if possible (short of patient asking a
direct question regarding prognosis)
-
-
Date of Service: February 04, 2025
CC / HPI / ROS
-
Chief Complaint:
JESUS
History of Present Illness:
parikh out, bladder scan without urine
lactate improving to 7.6
JESUS/HD tolerated HD yesterday
remains on pressors for hypotension
Review of Systems:
no CP
SOB mild
mild pain in LLE
Labs
-
Labs:
WBC 33.3 10^3/uL (4.8-10.8) H 02/04/25 02:51
RBC 3.48 10^6/uL (4.70-6.10) L 02/04/25 02:51
Hgb 10.5 g/dL (13.0-18.0) L 02/04/25 02:51
Hct 30.9 % (39.0-52.0) L 02/04/25 02:51
Plt Count 406 10^3/uL (130-400) H 02/04/25 02:51
Sodium 133 mmol/L (135-145) L 02/04/25 02:51
Potassium 4.2 mmol/L (3.5-5.1) 02/04/25 02:51
Chloride 89 mmol/L (98-107) L 02/04/25 02:51
Carbon Dioxide 20 mmol/L (22-30) L 02/04/25 02:51
BUN 60 mg/dl (9-20) H 02/04/25 02:51
Creatinine 3.7 mg/dL (0.7-1.3) H 02/04/25 02:51
eGFR 16.03 02/04/25 02:51
Glucose 148 mg/dl (70-99) H 02/04/25 02:51
Calcium 7.6 mg/dl (8.4-10.2) L 02/04/25 02:51
Phosphorus 9.5 mg/dl (2.5-4.5) H 02/02/25 21:01
Svq-M-Vsxzleezwxc Pept > 52323 pg/ml 02/01/25 20:16
Albumin 3.3 g/dl (3.5-5.0) L 02/02/25 21:01
Physical Exam
-
Vital Signs:
Vital Signs
Temp Pulse Resp BP Pulse Ox
97.7 F 113 21 136/68 96
02/04/25 08:00 02/04/25 07:30 02/04/25 07:30 02/04/25 03:56 02/04/25 09:09
Cardiovascular:: Regular rate and rhythm
Respiratory:: Bilateral: Coarse
Lung Excursion:: Normal
Abdomen:: Nontender and Soft
Bowel Sounds:: Normal
Extremity Edema:: +2: Bilateral:
--- NOTE | 2025-02-04 09:28 | PTCARENOTE ---
recd pt 0715 handoff at bedside with previous RN. Family bedside. gtts confirmed, oxygen as noted, weaning slowly, presently at 4l NC with sats mid 90s. Levophed to maintain MAP >65, presently at 3 mcg/min. Seen 0730 by vascular team, CT scan
ordered LLE, transported to CT department, tolerated activity well. Notes ongoing back pain, med as noted for rating 9/10, some relief obtained with repositioning, skin care, and med. Instructed on IS, questions answered. Also seen by Drs.
Katelynn Bravo, and Deni. Bladder scanned, zero urine in bladder. L foot wrapped, dressing intact, able to obtain doppler anterior tibial pulse, CMS check to bilat toes with baseline decreased sensation, unchanged.
[2025-02-04 11:00] LABS: APTT 123.9 Sec (23.4-35.0)
--- NOTE | 2025-02-04 11:41 | W.PN.INTV ---
Today's Communication / Plan
Recommendations
Continue antibiotic therapy per ID
Hemodialysis today
Decrease bicarbonate drip to 100 cc an hour hopefully can discontinue later
Continue to follow lactic acid
LFTs are pending
Continue to monitor blood sugars
Oxygen supplementation
Incentive spirometry
NG tube in place-n.p.o. for now. Hopefully can start diet tomorrow if NG tube output has decreased
Range of motion as able.
Wound care
Assessment
-
Patient is a 79-year-old male with previous history of diabetes, hypertension, A-fib on Xarelto, pacemaker placement since presenting to ER for infected fifth metatarsal with purulent drainage with resultant erythema on the dorsal aspect of the
foot progressing to generalized erythema and lymphangitis on the lower extremity to mid thigh over the past 4 days. He was taking oral Cipro course but was likely failing outpatient regiment. Admitted to on 01/28/2025. Podiatry was consulted
and performed a bedside I&D with concern for underlying osteomyelitis. He is placed on IV antibiotics with ID following. Developed worsening acute kidney injury and decreased urine output with worsening metabolic acidosis. HD catheter placed and
hemodialysis initiated on 02/02/2025. Lactic acid was noted as well. He has been hemodynamically stable not on pressors. He is transferred to ICU for worsening profound sepsis 02/02/25.
Severe sepsis, not on pressors
Infected R toe complicated by osteomyelitis and cellulitis of the lower extremity
Status post fifth ray amputation 02/03/[id number]. Brinkley.
Hypoxemic respiratory failure: Suspected aspiration event.
Projectile vomiting with abdominal distention 02/03/2025
Suspected ileus
Leukocytosis
Thrombocytosis
Anion gap severe metabolic acidosis
Acute kidney injury with oliguria now on HD 02/02/25
Hyperkalemia
Lactic acidosis
TME due to above
Conditions present prior to admission
PAF on Xarelto
Atypical syncope
Presence of cardiac pacemaker
Essential (primary) hypertension
Obesity
History of hepatitis r/t mononucleosis 1989
Diverticulosis/Colon polyps
IDDM
HLD
Spinal stenosis in cervical region s/p nerve stimulator implant
Herniated disc, cervical
Lumbar Laminectomy
Bilateral Arthroscopy Knees
Plan
Patient is critically ill, requiring vasopressors, profound metabolic acidosis with worsening renal function.
-
Toxic metabolic encephalopathy/delirium due to above-overall improved.
Has chronic pain issues in his lumbar and cervical spine
Pain/sedation: As needed but would hold off on significant amounts, sedating medications
-
Septic shock: Hemodynamically improved-Levophed down to 3 mics per minute.
Continue Levophed to maintain mean arterial blood pressure 65 mmHg
Central line in place.
Arterial line in place.
Discontinue vasopressin.
Hemodynamics have improved with improving metabolic acidosis.
-
Fever and increased WBC on presentation, suspect underlying right toe infection complicated by osteomyelitis and cellulitis
Podiatry and vascular consults were obtained
Underwent toe I&D 01/31/2025
Continue antibiotic, ID following
Cultures : Wound culture with MRSA
Persistent leukocytosis-is slowly improving.
Afebrile.
-
Lactic acidosis trending lower.
Vascular surgery correspondence reviewed: Angiogram to evaluate peripheral arterial disease on hold.
CT of the lower extremity 02/04/2025 noted with edema. No evidence for abscesses or subcutaneous air. Will wait for vascular opinion.
There is mild to moderate amount of fluid on the left knee-on exam not erythematous or tender. Unclear significance. If there is no ongoing improvement may need to consider arthrocentesis.
Thickening of the bladder: Uncertain significance. Patient is anuric. Already on antibiotics.
Continue to check bladder residuals-currently none. Enlarged prostate noted.
-
Profound metabolic acidosis with increased lactic acid. Slowly improving.
CT abdomen pelvis without bowel ischemia
? Related to metformin.
Bicarbonate drip continues decreased to 100 cc an hour.
Dialysis later today. If laboratory testing showed that bicarb is greater than 20 discontinue IV fluids.
Monitor for respiratory decompensation. High risk for volume overload
Dialysis today-discussed with nephrology.
Dialysis again today.
-
Cardiac history reviewed--hypertension, A-fib on OAC/pacemaker
Prior ECHO reviewed indicating normal function
Currently NPO.
Monitor on telemetry
Heparin drip-follow PTT
Cardiology following
Hypoxemic respiratory failure:Anemia: On low rate supplemental oxygen.
Suspect aspiration pneumonitis as the patient had vomiting earlier today
Chest x-ray without infiltrate
Continue oxygen supplementation to maintain pulse ox above 90%-currently 3-4 L.
Expiratory wheezing initially but not resolved likely post aspiration.
Incentive spirometry encouraged
-
Prior history of lung disease: None, but suspect untreated sleep apnea
AB.- indicating primary metabolic acidosis
Not the greatest candidate for noninvasive mechanical ventilation due to abdominal distention and vomiting.
Close monitoring
Metabolic acidosis improved postdialysis and bicarbonate drip.
-
NPO, resume diet when able
Abdominal distention this morning-abdomen chest x-ray ordered by me shows significant gastric distention
NG tube placed 02/03/2025 with increased output-suspect ileus-NG tube still with significant output. Abdominal exam improved.
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
CT abdomen pelvis not demonstrating ischemic bowel disease
Head of the bed elevation
-
Aspiration precautions, HOB > 30 degrees
GI prophylaxis if indicated for mechanical ventilation >48 hours, prior history of GERD, stress ulcer formation in the critically ill
JESUS-hypotensive insult/?contrast/sepsis.
Oliguric
Renal following, initiated on HD 02/02/2025
Creat at baseline 0.9-1.0, no history of renal disease
Void trials
Follow urine output, critical I/Os
Replete electrolytes as needed
Continue dialysis as necessary.
Hopefully can discontinue bicarbonate drip later today. Rate decreased to 100 cc an hour.
Nephrology continues to follow
-
Anemia: Multifactorial
No indication for transfusion
Continue to follow
-
DVT prophylaxis: Currently on a heparin drip.
Left upper extremity swelling: Ultrasound pending 02/04/2025.
Patient is in anasarca due to hypovolemia and IV fluid resuscitation/acute kidney injury.
-
H/o diabetes, can continue on home meds, SS for coverage
Currently n.p.o.
Blood sugar target in the hospital 140-180
HbA1c 7.1, 7.6--indicating likely poor control
-
Dr. Cheema updated daughter and in detail 02/03/2025, 02/04/2025 extensively.
Case has been discussed with multiple consultants
Diagnostic Data
Chest X-Ray: 02/02/25- Placement of a right internal jugular dual-lumen dialysis catheter with the tip in the SVC. Stable left cardiac conduction device and spinal stimulator leads. Low lung volumes. Mild bibasilar atelectasis. Possible small layering
left pleural fluid. No pneumothorax. Stable enlargement of the cardiac silhouette.
CT Scan: AP 02/01/25- Multifocal atherosclerosis throughout the bilateral lower extremities. Diminished flow in the left anterior tibial artery with some apparent distal reconstitution, and diminished flow at the distal aspect of the left peroneal
artery at the level of the ankle. Short segment high-grade stenosis of the distal right SFA. Diminutive right calf vessels with multifocal stenoses. Small bilateral pleural effusions. Urinary bladder wall thickening with inflammatory fat stranding.
Recommend correlation with a urinalysis for acute cystitis.
Echo: 10/02/24- Normal left ventricular size and systolic function. Mild concentric left ventricular hypertrophy. No regional wall motion abnormalities are seen. LV ejection fraction is 60-65% by volumetric assessment. Thickened mitral valve leaflets
with mild mitral stenosis. Peak/mean gradients across the mitral valve are 11/4 mmHg, respectively. Trace mitral regurgitation. Mitral annular calcification. Thickened and calcified aortic valve with mild aortic stenosis. Peak/mean gradients across
the aortic valve are 18/10 mmHg, respectively. The aortic regurgitation. Tricuspid valve opens normally with trace tricuspid regurgitation. Estimated pulmonary artery pressure of 30 mmHg. Compared to prior study 09/22/2021 there is mild mild mitral
valve stenosis. There is now mild aortic valve stenosis. There is mild aortic valve insufficiency.
PFT's:
Reports and relevant images were personally reviewed.
Critical Care time 48 mins -- The patient is admitted for acute critical illness for the treatment of vital organ failure and/or prevention of further life-threatening conditions. Total care includes time spent in review of history, physical exam,
medications, hemodynamic/ventilator parameters, laboratory data, imaging and discussion with house staff, pharmacy, respiratory therapy, metal fabricator welder, and nursing.
Subjective Dataa
Subjective Data
Date of Service:
Date of Service: February 04, 2025
Chief Complaint: Gis Web Developer Follow Up (Septic shock/acute kidney injury/metabolic acidosis)
Subjective:
Tolerated amputation yesterday without difficulties
Hemodynamics improved
Denies abdominal pain
NG tube in place with ongoing output
Denies significant pain.
Denies shortness of breath at rest
Objective Data
Data Reviewed
Vital Signs / I&O / Oxygen:
Vital Signs
Temp Pulse Resp BP Pulse Ox
97.7 F 100 9 115/53 96
02/04/25 08:00 02/04/25 10:30 02/04/25 10:30 02/04/25 07:54 02/04/25 10:30
Intake and Output
02/03/25 02/04/25 02/05/25
06:59 06:59 06:59
Intake Total 233.0 / 260.0 4661.6 / 4839.6 734.6 / 734.6
Output Total 65 / 65 2450 / 2450
Balance 168.0 / 195.0 2211.6 / 2389.6 734.6 / 734.6
SaO2 96
Nasal Cannula flow liters per 4
minute
Physical Exam
General: Comfortable
HEENT: Normocephalic
Cardiovascular: S1-S2 and Irregular Rhythm
Respiratory: Wheeze (Mild expiratory) and Accessory Resp Muscle Use (At rest)
GI: Soft, Distended (Tympanic), Non Tender and NG Tube
Neurology: Awake, Alert, No Motor Deficits and Other (Follow simple command)
Skin: Other (Left foot is dressed. No significant bleeding.) and Other (Pale)
Labs/Micro/Reports
Lab Data
02/04/25 02:51
02/04/25 02:51
Laboratory Results
02/03/25 02/03/25 02/04/25
14:03 20:09 02:51
APTT 49.9 H 129.1 H 136.5 H
02/04/25
10:33
APTT 123.9 H
Microbiology
02/03/25 21:30 Foot - Left Gram Stain - Preliminary
02/03/25 21:30 Foot - Left Gram Stain - Preliminary
02/02/25 13:44 Urine Urine Culture - Final
NO GROWTH
01/29/25 04:07 Blood/Venous Blood Culture - Final
No Growth - Final Report
01/28/25 12:24 Blood/Venous Blood Culture - Final
No Growth - Final Report
01/31/25 09:04 Foot - Left Wound Culture - Final
Staph aureus MRSA
01/31/25 09:04 Foot - Left Gram Stain - Final
02/01/25 19:47 Nasal Swab Influenza Types A & B (GIFTY) - Final
Negative for Influenza A & B, NAAT
Negative results must be combined with clinical observations
and patient history.
Nucleic Acid Amplification test (NAAT)performed on the
[employer] platform.
01/30/25 10:04 Foot - Left Wound Culture - Final
Staph aureus MRSA
01/30/25 10:04 Foot - Left Gram Stain - Final
[2025-02-04 11:49] LABS: Glucose - Point of Care 203 mg/dl (70-99)
[2025-02-04] MEDS: MANNITOL 25% 12.5 GRAMS IV ×2 (12:17→13:04)
--- NOTE | 2025-02-04 12:27 | W.PN.NEPH.HD ---
Assessment
-
Seen on HD. no complaints. VSS, access ok
can cap IVF
Progress Note - Hemodialysis
-
Date of Service: February 04, 2025
Duration: 30 minutes and 3 hours
Potassium Bath: 3
Calcium Bath: 2.5
Opti-Dialyzer: 160
Ultrafiltration: Other
Blood Flow: 400
Dialysate Flow: 600
Heparin: no
EPO: no
--- NOTE | 2025-02-04 12:30 | PTCARENOTE ---
HD begun approx 1115, tolerating, family visiting. Comfortable. Mouth swabs given. Using IS, effort weak.
[2025-02-04] MEDS: NOVOLOG FLEXPEN-LOW RESISTANCE 2 UNITS SC (12:42)
--- NOTE | 2025-02-04 13:23 | W.PN.ID1 ---
Date of Service
Date of Service: February 04, 2025
Today's Communication
Continue Vancomycin and cefepime.
Assessment / Plan
# Multifactorial including septic shock on 1 pressor
# Leukocytosis improved
# Suspect pneumonia
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
.spine stimulator incompatible with MRI.
# PAD, left 5th ischemic toe
. s/p CT angiogram
# JESUS
. HD started 02/02
. Urine eos neg
# DM2 with neuropathy
- Blood cx's neg. Ucx neg.
- Wound cx MRSA
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
- Continue Vancomycin,dosing by level
- Continue cefepime 1g IV q24 (d2)
- Trend WBC/vitals.
- Pt critically ill in ICU.
# Conditions WARD MAID
Diabetes mellitus type 2
Hypertension
Atrial fibrillation on Xarelto
pacemaker placement
Chronic pain with spinal stimulator, not active
Chronic left leg weakness due to history of back injury during lumbar procedure 2019
Lumbar laminectomy
Chief Complaint
-: Other (osteo)
Vital Signs / Physical Exam
Vital Signs
Vital Signs
Temp Pulse Resp BP Pulse Ox
97.5 F 100 9 115/53 96
02/04/25 12:00 02/04/25 10:30 02/04/25 10:30 02/04/25 07:54 02/04/25 10:30
Physical Exam
Constitutional: Acutely Ill
Eyes: Sclera Anicteric
Cardiovascular: S1/S2 (tachycardic)
Pulmonary: Non Labored
Gastrointestinal: Soft, Non Tender and Non Distended
Extremities: Edema
Lines: HD Cath
Objective Data
Lab Data
Lab Results
02/04/25 02:51
02/04/25 02:51
ESR 78 mm/hour (0-20) H 01/28/25 12:23
PT 27.8 Sec (11.4-14.6) H 02/03/25 00:54
INR 2.59 02/03/25 00:54
APTT 123.9 Sec (23.4-35.0) H 02/04/25 10:33
Estimated Creat Clear 19 ml/min 02/04/25 02:51
Lactic Acid 6.6 mmol/L (0.7-2.0) H* 02/04/25 10:33
Total Bilirubin 0.9 mg/dl (0.2-1.3) 02/02/25 21:01
AST 31 U/L (17-59) 02/02/25 21:01
ALT < 30 U/L (0-50) 02/02/25 21:01
Alkaline Phosphatase 133 U/L (38-126) H 02/02/25 21:01
C-Reactive Protein 228.10 mg/L (0.0-10.00) H 01/28/25 12:23
Most recent labs reviewed.
Micro Results:
02/03/25 21:30 Wound Culture - Pending
Foot - Left Gram Stain - Preliminary
02/03/25 21:30 Tissue Culture - Pending
Foot - Left Gram Stain - Preliminary
02/03/25 21:30 Anaerobic Culture - Pending
Foot - Left
02/02/25 13:44 Urine Culture - Final
Urine NO GROWTH
01/29/25 04:07 Blood Culture - Final
Blood/Venous No Growth - Final Report
01/28/25 12:24 Blood Culture - Final
Blood/Venous No Growth - Final Report
01/31/25 09:04 Wound Culture - Final
Foot - Left Staph aureus MRSA
Gram Stain - Final
02/01/25 19:47 Influenza Types A & B (GIFTY) - Final
Nasal Swab Negative for Influenza A & B, NAAT
Negative results must be combined with clinical observations
and patient history.
Nucleic Acid Amplification test (NAAT)performed on the
[employer] platform.
01/30/25 10:04 Wound Culture - Final
Foot - Left Staph aureus MRSA
Gram Stain - Final
01/28/25 17:44 MRSA Screen - Final
Nose No Methicillin Resistant Staphylococcus aureus isolated.
01/28/25 Left foot XRAY: No acute osseous abnormality. Mild soft tissue swelling along the lateral forefoot.
02/01/25 CXR: Hazy increased density over the left lower hemithorax, probably mainly due to a posteriorly layering pleural effusion.
02/03/25 CXR: Parenchymal opacity within the right lower lung and the left mid to lower lung, similar to recent radiograph. Main differential considerations of atelectasis and/or pneumonia.
Care Review
Plan reviewed with: Physician (Dr. Bravo)
--- NOTE | 2025-02-04 13:36 | W.PN.POD ---
Today's Communication
Today's Communication
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
Assessment / Plan
-
Left foot Diabetic foot infection - abscess, cellulitis, osteomyelitis 5th MPJ
Sepsis
JESUS
IDDM
neuropathy
PAD
Plan:
The left foot wound was flushed and packed at bedside. Continue vanco/cefipime per ID. Bone & would cultures pending. 5th ray pathology and proximal clean margin pending. Await vascular plans. will follow
Subjective
Chief Complaint
S/P Left partial 5th ray amputation -POD#1
Subjective
Patient seen at bedside - offers no complaints of foot pain
Objective
Temp Pulse Resp BP Pulse Ox
97.5 F 100 9 115/53 96
02/04/25 12:00 02/04/25 10:30 02/04/25 10:30 02/04/25 07:54 02/04/25 10:30
02/04/25 02:51
02/04/25 02:51
Vital Signs and Lab results were reviewed.
Physical Exam
Physical Exam
Left foot with bandages intact, minimal strikethrough on inner bandages. non-palpable pulses, CFT delayed, Packing in place, wound bed is clean, no purulence expressed. Would edges are viable, no necrosis. erythema significantly improved.
--- NOTE | 2025-02-04 14:40 | CM ---
POD #1: Abscess, cellulitis, osteomyelitis 5th MP, L partial 5th ray amputation. IV/Cefepime. Discharge POC: TBD. Awaiting therapy evaluation and recommendation.
--- NOTE | 2025-02-04 14:42 | W.PN.CARDCBS ---
Today's Communication / Plan
-
Stable cardiology status and improved heart rate
eventually resume xarelto
Impression / Plan
-
PCP: Dr. Roman Macedo
Boxing Inspector: Dr. Munoz
Impression:
Admitted with LLE/left foot cellulitis 01/28/2025
Sepsis related to above
JESUS requiring hemodialysis
Peripheral vascular disease
Diabetes mellitus type 2
Hypertension
Permanent atrial fibrillation, RVR
Acute on chronic HFpEF
Dyslipidemia
Obesity
Paroxysmal complete heart block status post dual-chamber pacemaker 2021 ([employer])
Echo 08/2021: EF 55-60, mild concentric LVH, small pericardial effusion
Echo 10/2024: EF 65%, mild MS, mild with gradient 10 mmHg, PASP 30 mmHg
Echo 02/02/2025: EF 60 to 65%, stage II diastolic dysfunction, normal RV size and function
LHC 09/07/21: LAD is on the smaller side and is calcified with diffuse disease and reaches the apex. The second OM is small and has a 40% ostial stenosis. The distal OM 3 inferior branch has an ostial 50% stenosis. RCA has mid 50% stenosis. Given that
this was the area that was positive and the stress test it was decided to proceed with IFR. iFRs of this lesion were serially negative around 0.92 indicating a nonobstructive lesion. Conclusions: moderate nonobstructive coronary atherosclerosis,
normal LV function, mild .
Recommendations:
Heart rate better controlled at present, outpatient Toprol held due to hypotension
eventually resume xarelto
Patient seems more awake today possibly from treatment of sepsis
Pressors being weaned
Continue IV antibiotics
Discussed with patient's son, daughter and by phone at bedside in detail
HPI: Patient is a pleasant 71-year-old male with a past medical history significant for permanent atrial fibrillation, paroxysmal complete heart block status post dual-chamber pacemaker 2021, hypertension, hyperlipidemia, diabetes mellitus, prior
syncope, nerve stimulator, osteoarthritis who initially presented due to worsening lower extremity infection. Patient was noted to have significant atherosclerosis of bilateral lower extremities. Patient's renal function began to worsen and
patient with significant leukocytosis. Patient and family had reported increasing shortness of breath, decreased oral intake, and nausea. Since admission, patient undergoing treatment of infection with IV antibiotics however, renal function
continued to worsen. Patient underwent implant of dialysis catheter on 02/02/2025 with initiation of hemodialysis. Cardiology consulted due to elevated troponin and elevated BNP. Patient's initial troponin was noted to be 0.5 which is down trended
to 0.35 and 0.315. In discussion with patient and family, he notes some intermittent variable chest discomfort which occasionally occurs with position changes and at rest but no reported chest pain with activity or exertion. Prior to admission,
patient was active and denied chest pain shortness of breath or palpitations with activity or exertion. Additionally, patient's BNP checked on 02/01/2025 was greater than 27,000. Patient is a non-smoker, no alcohol, no illicits. Patient without
significant family history.
Progress Note - Boxing Inspector
Subjective
Date of Service: February 04, 2025
No complaints
Objective
Labs:
02/04/25 02:51
02/04/25 02:51
Labs
Hgb 10.5 g/dL (13.0-18.0) L 02/04/25 02:51
Hct 30.9 % (39.0-52.0) L 02/04/25 02:51
Plt Count 406 10^3/uL (130-400) H 02/04/25 02:51
PT 27.8 Sec (11.4-14.6) H 02/03/25 00:54
INR 2.59 02/03/25 00:54
APTT 123.9 Sec (23.4-35.0) H 02/04/25 10:33
Sodium 133 mmol/L (135-145) L 02/04/25 02:51
Potassium 4.2 mmol/L (3.5-5.1) 02/04/25 02:51
BUN 60 mg/dl (9-20) H 02/04/25 02:51
Creatinine 3.7 mg/dL (0.7-1.3) H 02/04/25 02:51
Glucose 148 mg/dl (70-99) H 02/04/25 02:51
Troponins
02/01/25 02/02/25 02/02/25
20:16 03:23 09:38
Troponin I 0.528 H* 0.358 H* D 0.315 H*
02/02/25
13:14
Troponin I 0.253 H*
Vital Signs and I&O:
Vital Signs
Temp Pulse Resp BP Pulse Ox
97.5 F 105 14 115/53 99
02/04/25 12:00 02/04/25 13:45 02/04/25 13:45 02/04/25 07:54 02/04/25 13:45
Vital Signs
Temp Pulse Resp BP Pulse Ox
97.5 F 105 14 115/53 99
02/04/25 12:00 02/04/25 13:45 02/04/25 13:45 02/04/25 07:54 02/04/25 13:45
Intake & Output
02/02/25 02/03/25 02/04/25 02/05/25
06:59 06:59 06:59 06:59
Intake Total 960 / 960 233.0 / 260.0 4661.6 / 4839.6 885.5 / 885.5
Output Total 65 / 65 2450 / 2450
Balance 960 / 960 168.0 / 195.0 2211.6 / 2389.6 885.5 / 885.5
Physical Exam
Physical Exam
General: Well developed, well nourished in NAD.
Neck: Supple, no JVD, HJR, carotids +2 B/L, no bruits bilaterally.
Heart: Non displaced PMI, irregular, no murmurs, No S3, S4, no rubs.
Lungs: Scattered rhonchi
Extremities: No clubbing, cyanosis or edema bilaterally.
Neuro: Grossly nonfocal, awake, alert and oriented x3.
[2025-02-04] MEDS: OFIRMEV 100 IV ×2 (16:26→22:11)
[2025-02-04] MEDS: LIDOCAINE 4% PATCH 1 PATCH TOPICAL (16:27)
[2025-02-04 16:52] LABS: ALT (SGPT) 43 U/L (0-50); AST (SGOT) 69 U/L (17-59); Albumin 3.0 g/dl (3.5-5.0); Alkaline Phosphatase 115 U/L (38-126); Blood Urea Nitrogen 38 mg/dl (9-20); Calcium 7.0 mg/dl (8.4-10.2); Carbon Dioxide 27 mmol/L (22-30); Chloride 94 mmol/L (98-107); Estimated Creatinine Clearance 29 ml/min; Glucose 149 mg/dl (70-99); Magnesium 1.9 mg/dl (1.6-2.3); Potassium 4.0 mmol/L (3.5-5.1); Sodium 134 mmol/L (135-145); Total Protein 5.4 g/dl (6.3-8.2); eGFR 25.65
[2025-02-04 16:59] LABS: APTT > 200 Sec (23.4-35.0)
--- NOTE | 2025-02-04 17:11 | PTCARENOTE ---
Dr. Cheema updated, pt with pain through out back. new orders for IV acetaminophen and lidocaine patch obtained, given. labs sent per orders, results trickling in, heparin on hold per protocol.
[2025-02-04] MEDS: STERILE WATER FOR INJECTION 10 ML IV (17:36)
[2025-02-04] MEDS: MAXIPIME 1000 MG IV (17:36)
[2025-02-04 17:55] LABS: Glucose - Point of Care 172 mg/dl (70-99)
--- NOTE | 2025-02-04 20:05 | PTCARENOTE ---
Rec'd pt drowsy, follows commands, OLGUIN weakly, oriented to person/place, forgetful,needs reorientation to time, c/o generalyzed itchiness, no rash noted, benadryl 25mg iv given,afib, left rad dylan w/ good wave form, flushes well, zeroed, accurate
to cuff, goal MAP > 65, levo at 4 jeni- see flow sheet for titrations, hep gtt at 1000 units, bilat pedals via doppler, able to move toes left foot, left foot dsg intact; skin warm/dry, O2 4 liters nc, lungs decr, enc to use IS- only able to reach
500ml, sat 98, hypo bowel sounds, fecal mgmt sys to str drainage bag draining brown liquid, R nares [place] to low inter suction draining brownliquid- irrigated w/ 30tap h20 q4h, no n/v, anuric, 3 gm fan gluc hung over 1hr per order, family updated on
pt status
[2025-02-04] MEDS: CALCIUM GLUCONATE 130 MG IV (20:07)
[2025-02-04] MEDS: BENADRYL 25 MG IV (20:07)
[2025-02-04] MEDS: LANTUS 0.05 UNITS SC (22:11)
[2025-02-04 22:18] LABS: Glucose - Point of Care 173 mg/dl (70-99)
[2025-02-04 23:19] LABS: Glucose - Point of Care 195 mg/dl (70-99)
[2025-02-04] MEDS: REMOVE LIDOCAINE PATCH 1 PATCH REMOVE (23:25)
[2025-02-05] VITALS (8 sets, daily range): BP systolic 123–147; BP diastolic 54–82; PULSE 80–83; O2SAT 98; BMI 33.3
--- NOTE | 2025-02-05 00:06 | PTCARENOTE ---
sys reviewed, pt pulled out [place], no nauseated, K Vadim DEVELOPMENTAL MATHEMATICS INSTRUCTOR aware, will cont to monitor, sys reviewed, CHG bath done, linens changed, bladder scanned for 0 ml
[2025-02-05 01:24] LABS: APTT 109.1 Sec (23.4-35.0)
[2025-02-05] MEDS: OFIRMEV 100 IV ×2 (03:35→10:50)
[2025-02-05] MEDS: HEPARIN 25000 UNITS/250 ML IV (03:35)
--- NOTE | 2025-02-05 04:00 | PTCARENOTE ---
sys reviewed, no nausea, no c/o itching
[2025-02-05 04:33] LABS: Blood Urea Nitrogen 60 mg/dl (9-20); Calcium 7.5 mg/dl (8.4-10.2); Carbon Dioxide 26 mmol/L (22-30); Chloride 93 mmol/L (98-107); Estimated Creatinine Clearance 23 ml/min; Glucose 204 mg/dl (70-99); Potassium 4.1 mmol/L (3.5-5.1); Sodium 133 mmol/L (135-145); eGFR 19.82
[2025-02-05 04:37] LABS: Hematocrit 28.3 % (39.0-52.0); Hemoglobin 9.7 g/dL (13.0-18.0); Mean Corp Hgb Conc. 34.3 g/dL (33.0-37.0); Mean Corpuscular Volume 87.6 fL (80.0-94.0); Platelet Count 307 10^3/uL (130-400); Red Cell Dist. Width 14.5 % (11.5-14.5)
[2025-02-05 05:20] LABS: Glucose - Point of Care 225 mg/dl (70-99)
[2025-02-05] MEDS: NOVOLOG FLEXPEN-LOW RESISTANCE 2 UNITS SC ×3 (06:01→18:08)
[2025-02-05 06:57] LABS: APTT 132.7 Sec (23.4-35.0)
--- NOTE | 2025-02-05 07:41 | W.PN.HOSP.TC ---
Today's Communication/Plan
-
Clear liquid diet
Increase Lantus
PT/OT
Continue antibiotics
Assessment / Plan
Assessment / Plan
Gen-awake, alert, NAD
HEENT-NC, AT, anicteric, clear oral mm
Neck-supple
CV-reg, no M, +S1/S2
Lungs-clear B/L
Abd-soft, NT, ND
Ext-no edema
Musculoskeletal-no cyanosis, clubbing, left foot dressing intact
Skin-warm and dry
Neuro-grossly non-focal
Psych-calm, cooperative
Acute TME -due to sepsis, shock, critical illness. Suspect TME is improving.
Septic shock due to to left fifth metatarsal abscess -possible underlying osteomyelitis. IV vancomycin/cefepime per ID.
Shock resolved. Off vasopressors. Blood cultures negative so far. Wound culture shows MRSA.
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
Leukocytosis improving. Afebrile.
Unable to have MRI due to spinal stimulator not active
Wound culture growing MRSA
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 Podiatry following. Bone and tissue cultures pending. Pathology from bone margins pending.
Lactic acidosis due to sepsis/shock -lactic acid now normalized.
Differential diagnosis include metformin induced versus worsening sepsis
Metformin discontinued 02/01
MAP has been consistently greater than 65
Acute kidney injury -due to septic shock. Anuric. Gonzalez catheter in place. Etiology of JESUS most likely due to septic shock and medications and less likely due to contrast-induced nephropathy as contrast exposure was on 02/01, creatinine was 3.3
morning of 02/01.
Appreciate nephrology input, dialysis started 02/02
High anion gap metabolic acidosis due to septic shock, lactic acidosis. Metabolic acidosis resolved. Off sodium bicarbonate IV.
Hold metformin, lisinopril, hydrochlorothiazide, trend creatinine, no nephrotoxic drugs or NSAIDs
Ileus -developed nausea and vomiting on 02/03. Abdominal x-ray on 02/03 showed moderate to large amount of gaseous distention of the stomach without dilated loops of bowel otherwise.
NG tube placed 02/03. Patient removed NG tube last night. Denies any further nausea or or vomiting. Will start clears and advance diet as tolerated. He is moving his bowels.
LUE edema -check venous Doppler ultrasound, rule out DVT.
Peripheral artery disease
Appreciate vascular surgery input
Originally planned for left lower extremity angiogram Sunday 02/04, but will hold due to renal failure
Acute on chronic heart failure with preserved ejection fraction
Cardiology following, continue dialysis as per nephrology
Troponin elevation -suspect acute nonischemic myocardial injury due to septic shock. Troponin trending down.
Permanent atrial fibrillation with rapid ventricular response
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
Continue IV heparin. Was on Xarelto prior to admission.
Hyponatremia -monitor for now. Sodium stable at 133 today. Component of hyperglycemia induced hyponatremia.
Hyperphosphatemia -due to JESUS. Improving.
DM 2 with hyperglycemia -at home he was on insulin degludec 24 units at bedtime, NovoLog sliding scale with meals, metformin.
Hemoglobin A1c 7.1 on 01/13/2025
Hold metformin 1000 mg daily due to JESUS
Currently on Lantus 5 units at bedtime, low resistance NovoLog scale.
Glucose 204 this morning, 195 last night. Can increase Lantus to 10 units at bedtime, add mealtime insulin when tolerating solid food.
Essential hypertension -meds on hold for hypotension, shock.
Constipation -now with frequent loose stools. Fecal management system in place.
Hyperlipidemia -was on lovastatin prior to admission.
Obesity due to excess calories
DVT prophylaxis -IV heparin drip
Full code
PT/OT
Anticipated Discharge: > 48 hours
Subjective/Interval History
-
Date of Service: February 05, 2025
Patient seen and examined. No complaints. Denies nausea or abdominal pain.
Objective Data
-
Labs:
Laboratory Results
02/05/25 02/05/25 02/05/25
00:53 03:41 06:38
WBC 19.5 H
Hgb 9.7 L
Hct 28.3 L
Plt Count 307 D
APTT 109.1 H 132.7 H
Sodium 133 L
Potassium 4.1
Chloride 93 L
Carbon Dioxide 26
BUN 60 H
Creatinine 3.1 H
Glucose 204 H
Calcium 7.5 L
Vital Signs:
Vital Signs
Temp Pulse Resp BP Pulse Ox
97.5 F 77 13 141/60 100
02/05/25 03:36 02/05/25 06:30 02/05/25 06:30 02/05/25 04:00 02/05/25 06:30
I&O
02/04/25 02/05/25 02/06/25
06:59 06:59 06:59
Intake Total 4661.6 / 4839.6 1731.6 / 1731.6
Output Total 2450 / 2450 350 / 350
Balance 2211.6 / 2389.6 1381.6 / 1381.6
Review of Systems
-
History Source: Patient
All other systems: Reviewed and negative
--- NOTE | 2025-02-05 08:05 | PTCARENOTE ---
Received pt in bed. Son is at the bedside and provided an update regarding his night. Pt is lethargic. Moving slow in the bed with moaning and grimacing. It took him a bit to remember the current month. He is asking his son what happened. He was
informed of the events of his hospitalization bu his son. He seemed surprised by all that has happened to him. Left radial arterial line transduced, calibrated and monitored. All ports patent and secured. Dressing CDI. Right midline and right wrist
#22g protective catheter flushed and patent. Right IJ Non-tunnelled HD catheter and right IJ TL CVC with dressing CDI. Heparin infusing via right ij TL CVC per protocol. Doppler anterior tibial pulses by Doppler intact. No sensation to his feet
bilaterally. He is able to wiggle his toes and follow simple commands. Lungs dim in the bases. Poor inspiratory effort. He was instructed on the importance of using the IS and taking deep breaths. Oral mucosa dry. Mouth care provided. Per
[place] pt may have clear liquids. Provided two ice chips and both times he coughed shortly afterwards. Care team notified and instructed both the pt and his son to hold off on anything by mouth for now due to risk of aspiration. Understanding
verbalized. Left doot dressing CDI. Heels elevated on illows. FMS removed from rectum due to no stool for >12 hours. Protective dressing to his sacrum intact. Skin intact to his sacrum. Back rub provided due to severe back pain on the left lower
side. Safe environment maintained. Will continue to monitor.
--- NOTE | 2025-02-05 08:17 | PHA.VAN.FU ---
Addendum entered and electronically signed by Jacinda Mccabe Aidan 02/06/25 08:16:
Agree with assessment and plan
Original Note:
Vancomycin Assessment / Plan
- Assessment
Renal Function: SCR Increasing
Hemodialysis Schedule: Other (new start HD for JESUS)
WBC's are: Trending Down
In the past 24 hrs, patient has been: Afebrile
Concomitant Antimicrobials: cefepime
- Assessment - Therapeutic Drug Monitoring
Random Level: 19.2 - drawn ~62.75H after last dose of 750mg
- Dosing Plan
Dosing by Level: Hold off on dosing today
- Monitoring Plan
No level(s) ordered at this time: will redose tomorrow as this is an appropriate pre-HD level
- Follow Up
Pharmacy will continue to follow.
Vancomycin Follow UP
- -
Patient Age: 79
Patient Sex: Male
Vancomycin Day #: 9
Indication: Skin And Soft Tissue
Requesting Provider: Dr. Archer/Dr. Maguire
Pertinent Antimicrobial Allergies:
NKDA
Height / Weight:
Height 5 ft 9 in
Actual Weight 102.1 kg
Pertinent Past Medical History: BMI ~30.5, DM 2
- Vital Signs / Lab Results
Temp Pulse Resp BP Pulse Ox
97.5 F 78 11 141/60 100
02/05/25 07:49 02/05/25 07:45 02/05/25 07:45 02/05/25 04:00 02/05/25 07:45
Lab Results - Hematology
02/03/25 02/04/25 02/05/25
14:51 02:51 03:41
WBC 41.3 H* 33.3 H 19.5 H
Lab Results - Chemistry
02/02/25 02/03/25 02/03/25
21:01 00:54 10:08
BUN 60 H 64 H 72 H
Creatinine 4.4 H* 4.6 H* 5.1 H*
Estimated Creat Clear 16 15 14
Albumin 3.3 L
02/03/25 02/03/25 02/04/25
16:04 22:27 02:51
BUN 42 H 53 H 60 H
Creatinine 3.0 H 3.5 H 3.7 H
Estimated Creat Clear 24 20 19
Albumin
02/04/25 02/05/25
16:14 03:41
BUN 38 H 60 H
Creatinine 2.5 H 3.1 H
Estimated Creat Clear 29 23
Albumin 3.0 L
02/02/25 02/02/25 02/02/25
09:24 18:12 21:01
Lactic Acid 15.1 H* 12.9 H* 12.4 H*
02/03/25 02/03/25 02/03/25
00:54 05:06 07:44
Lactic Acid 13.0 H* 13.2 H* 13.8 H*
02/03/25 02/03/25 02/03/25
10:08 12:16 16:04
Lactic Acid 13.7 H* 14.6 H* 10.8 H*
02/03/25 02/03/25 02/04/25
20:09 22:27 02:51
Lactic Acid 9.6 H* 9.1 H* 8.0 H*
02/04/25 02/04/25 02/04/25
06:00 06:14 10:33
Lactic Acid Cancelled 7.4 H* 6.6 H*
02/04/25 02/05/25
16:14 00:53
Lactic Acid 2.4 H 1.7
Microbiology Results
02/03/25 21:30 Gram Stain - Preliminary
Foot - Left
02/03/25 21:30 Gram Stain - Preliminary
Foot - Left
02/02/25 13:44 Urine Culture - Final
Urine NO GROWTH
01/29/25 04:07 Blood Culture - Final
Blood/Venous No Growth - Final Report
Therapeutic Drug Monitoring
Random Vancomycin 19.2 ug/ml 02/05/25 03:41
[2025-02-05] MEDS: NSS (PRESERVATIVE FREE) 10 ML IV (09:00)
[2025-02-05] MEDS: PROTONIX IV 40 MG IV (09:00)
[2025-02-05] MEDS: LIDOCAINE 4% PATCH 1 PATCH TOPICAL (09:00)
--- NOTE | 2025-02-05 09:42 | W.PN.ID1 ---
Date of Service
Date of Service: February 05, 2025
Today's Communication
Continue Vancomycin and cefepime.
Assessment / Plan
# Multifactorial including septic shock, off pressors
# Leukocytosis improving
# Lactic acidosis resolved
# Suspect pneumonia
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
.spine stimulator incompatible with MRI.
# PAD, left 5th ischemic toe
. s/p CT angiogram
# JESUS
. HD started 02/02
. Urine eos neg
# DM2 with neuropathy
- Blood cx's neg. Ucx neg.
- Wound cx MRSA
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
- Continue Vancomycin,dosing by level
- Continue cefepime 1g IV q24 (d3 of )
- Trend WBC/vitals.
- Pt critically ill in ICU.
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
Diabetes mellitus type 2
Hypertension
Atrial fibrillation on Xarelto
pacemaker placement
Chronic pain with spinal stimulator, not active
Chronic left leg weakness due to history of back injury during lumbar procedure 2019
Lumbar laminectomy
Chief Complaint
-: Other (osteo)
Subjective / Review of Systems
Resting comfortably
Vital Signs / Physical Exam
Vital Signs
Vital Signs
Temp Pulse Resp BP Pulse Ox
97.5 F 78 11 141/60 100
02/05/25 07:49 02/05/25 07:45 02/05/25 07:45 02/05/25 04:00 02/05/25 07:45
Physical Exam
Constitutional: Acutely Ill
Eyes: Sclera Anicteric
Cardiovascular: Regular Rate and S1/S2
Pulmonary: Clear (anterior lungs) and Non Labored
Gastrointestinal: Soft, Non Tender and Non Distended
Lines: HD Cath
Objective Data
Lab Data
Lab Results
02/05/25 03:41
02/05/25 03:41
ESR 78 mm/hour (0-20) H 01/28/25 12:23
PT 27.8 Sec (11.4-14.6) H 02/03/25 00:54
INR 2.59 02/03/25 00:54
APTT 132.7 Sec (23.4-35.0) H 02/05/25 06:38
Estimated Creat Clear 23 ml/min 02/05/25 03:41
Lactic Acid 1.7 mmol/L (0.7-2.0) 02/05/25 00:53
Total Bilirubin 1.0 mg/dl (0.2-1.3) 02/04/25 16:14
AST 69 U/L (17-59) H 02/04/25 16:14
ALT 43 U/L (0-50) 02/04/25 16:14
Alkaline Phosphatase 115 U/L (38-126) 02/04/25 16:14
C-Reactive Protein 228.10 mg/L (0.0-10.00) H 01/28/25 12:23
Most recent labs reviewed.
Micro Results:
02/03/25 21:30 Wound Culture - Pending
Foot - Left Gram Stain - Preliminary
02/03/25 21:30 Tissue Culture - Pending
Foot - Left Gram Stain - Preliminary
02/03/25 21:30 Anaerobic Culture - Pending
Foot - Left
02/02/25 13:44 Urine Culture - Final
Urine NO GROWTH
01/29/25 04:07 Blood Culture - Final
Blood/Venous No Growth - Final Report
01/28/25 12:24 Blood Culture - Final
Blood/Venous No Growth - Final Report
01/31/25 09:04 Wound Culture - Final
Foot - Left Staph aureus MRSA
Gram Stain - Final
02/01/25 19:47 Influenza Types A & B (GIFTY) - Final
Nasal Swab Negative for Influenza A & B, NAAT
Negative results must be combined with clinical observations
and patient history.
Nucleic Acid Amplification test (NAAT)performed on the
[employer] platform.
01/30/25 10:04 Wound Culture - Final
Foot - Left Staph aureus MRSA
Gram Stain - Final
01/28/25 17:44 MRSA Screen - Final
Nose No Methicillin Resistant Staphylococcus aureus isolated.
01/28/25 Left foot XRAY: No acute osseous abnormality. Mild soft tissue swelling along the lateral forefoot.
02/01/25 CXR: Hazy increased density over the left lower hemithorax, probably mainly due to a posteriorly layering pleural effusion.
02/03/25 CXR: Parenchymal opacity within the right lower lung and the left mid to lower lung, similar to recent radiograph. Main differential considerations of atelectasis and/or pneumonia.
02/04/25 CT LE: 1. Interval amputation of the phalanges of the left 5th toe and the 5th metatarsal head since the prior exam performed 02/01/2025.
2. Large soft tissue wound distal to the 5th metatarsal with soft tissue emphysema extending deep to the lateral cortex of the 4th metatarsal head.
3. Moderate subcutaneous edema throughout the left lower leg and thigh.
4. Moderate to severe calcific atherosclerotic plaque throughout the left lower extremity.
5. Small to moderate-sized left knee joint effusion.
6. Severe anasarca in the left lateral abdominal wall.
7. Moderate retroperitoneal and extraperitoneal edema in the pelvis.
8. Severe diffuse urinary bladder wall thickening with adjacent perivesical inflammation suggesting ACUTE CYSTITIS. Chronic urinary bladder outlet obstruction is also likely present given severe enlargement of the prostate gland.
9. Mild circumferential wall thickening and fluid distention of the rectum suggesting an acute prostatitis. Rectal tube in place.
Care Review
Plan reviewed with: Physician (Dr. Bravo)
[2025-02-05] MEDS: METAMUCIL, KONSYL PO ×2 (09:45→21:29)
[2025-02-05] MEDS: SENOKOT-S PO ×2 (09:47→21:29)
[2025-02-05 09:48] LABS: ANA, IgG Reflex to HEp-2 Detected (None Detected)
--- NOTE | 2025-02-05 10:15 | W.PN.CARDCBS ---
Today's Communication / Plan
-
Stable cardiology status with rate controlled A-fib
Xarelto on hold and currently on IV heparin
Continue to try and wean pressors
Volume status controlled by dialysis
Impression / Plan
-
PCP: Dr. Roman Macedo
Communications Editor: Dr. Munoz
Impression:
Admitted with LLE/left foot cellulitis 01/28/2025
Sepsis related to above
JESUS requiring hemodialysis
Peripheral vascular disease
Diabetes mellitus type 2
Hypertension
Permanent atrial fibrillation, RVR
Acute on chronic HFpEF
Dyslipidemia
Obesity
Paroxysmal complete heart block status post dual-chamber pacemaker 2021 ([employer])
Echo 08/2021: EF 55-60, mild concentric LVH, small pericardial effusion
Echo 10/2024: EF 65%, mild MS, mild with gradient 10 mmHg, PASP 30 mmHg
Echo 02/02/2025: EF 60 to 65%, stage II diastolic dysfunction, normal RV size and function
LHC 09/07/21: LAD is on the smaller side and is calcified with diffuse disease and reaches the apex. The second OM is small and has a 40% ostial stenosis. The distal OM 3 inferior branch has an ostial 50% stenosis. RCA has mid 50% stenosis. Given that
this was the area that was positive and the stress test it was decided to proceed with IFR. iFRs of this lesion were serially negative around 0.92 indicating a nonobstructive lesion. Conclusions: moderate nonobstructive coronary atherosclerosis,
normal LV function, mild .
Recommendations:
Heart rate better controlled at present in permanent A-fib, outpatient Toprol held due to hypotension
eventually resume xarelto which was held at the time of foot surgery, currently on IV heparin
Continue to try and wean pressors as sepsis is treated
Continue IV antibiotics
Discussed with patient's son and by phone at bedside in detail
HPI: Patient is a pleasant 71-year-old male with a past medical history significant for permanent atrial fibrillation, paroxysmal complete heart block status post dual-chamber pacemaker 2021, hypertension, hyperlipidemia, diabetes mellitus, prior
syncope, nerve stimulator, osteoarthritis who initially presented due to worsening lower extremity infection. Patient was noted to have significant atherosclerosis of bilateral lower extremities. Patient's renal function began to worsen and
patient with significant leukocytosis. Patient and family had reported increasing shortness of breath, decreased oral intake, and nausea. Since admission, patient undergoing treatment of infection with IV antibiotics however, renal function
continued to worsen. Patient underwent implant of dialysis catheter on 02/02/2025 with initiation of hemodialysis. Cardiology consulted due to elevated troponin and elevated BNP. Patient's initial troponin was noted to be 0.5 which is down trended
to 0.35 and 0.315. In discussion with patient and family, he notes some intermittent variable chest discomfort which occasionally occurs with position changes and at rest but no reported chest pain with activity or exertion. Prior to admission,
patient was active and denied chest pain shortness of breath or palpitations with activity or exertion. Additionally, patient's BNP checked on 02/01/2025 was greater than 27,000. Patient is a non-smoker, no alcohol, no illicits. Patient without
significant family history.
Progress Note - Communications Editor
Subjective
Date of Service: February 05, 2025
No complaints
Objective
Labs:
02/05/25 03:41
02/05/25 03:41
Labs
Hgb 9.7 g/dL (13.0-18.0) L 02/05/25 03:41
Hct 28.3 % (39.0-52.0) L 02/05/25 03:41
Plt Count 307 10^3/uL (130-400) D 02/05/25 03:41
PT 27.8 Sec (11.4-14.6) H 02/03/25 00:54
INR 2.59 02/03/25 00:54
APTT 132.7 Sec (23.4-35.0) H 02/05/25 06:38
Sodium 133 mmol/L (135-145) L 02/05/25 03:41
Potassium 4.1 mmol/L (3.5-5.1) 02/05/25 03:41
BUN 60 mg/dl (9-20) H 02/05/25 03:41
Creatinine 3.1 mg/dL (0.7-1.3) H 02/05/25 03:41
Glucose 204 mg/dl (70-99) H 02/05/25 03:41
Troponins
02/02/25 02/02/25
09:38 13:14
Troponin I 0.315 H* 0.253 H*
Vital Signs and I&O:
Vital Signs
Temp Pulse Resp BP Pulse Ox
97.5 F 78 11 141/60 100
02/05/25 07:49 02/05/25 07:45 02/05/25 07:45 02/05/25 04:00 02/05/25 07:45
Vital Signs
Temp Pulse Resp BP Pulse Ox
97.5 F 78 11 141/60 100
02/05/25 07:49 02/05/25 07:45 02/05/25 07:45 02/05/25 04:00 02/05/25 07:45
Intake & Output
02/03/25 02/04/25 02/05/25 02/06/25
06:59 06:59 06:59 06:59
Intake Total 233.0 / 260.0 4661.6 / 4839.6 1731.6 / 1741.6
Output Total 65 / 65 2450 / 2450 350 / 350
Balance 168.0 / 195.0 2211.6 / 2389.6 1381.6 / 1391.6
Physical Exam
Physical Exam
General: Well developed, well nourished in NAD.
Neck: Supple, no JVD, HJR, carotids +2 B/L, no bruits bilaterally.
Heart: Non displaced PMI, irregular, no murmurs, No S3, S4, no rubs.
Lungs: Scattered rhonchi
Extremities: No clubbing, cyanosis or edema bilaterally.
Neuro: Grossly nonfocal, awake, alert and oriented x3.
--- NOTE | 2025-02-05 10:50 | W.PN.NEPH.PH ---
Today's Communication / Plan
-
HD tomorrow
Assessment/Plan
-
IMP:
TME
Septic shock
Lactic acidosis
Sepsis 2/2 to Diabetic left foot cellulitis w/ lymphangitis
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
Acute kidney injury-baseline cr 0.9-1.1
Peripheral artery disease
hyponatremia
IDDM 2
Essential hypertension
Constipation
A-fib�permanent
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
HLD
Obesity due to excess calories
Plan:
improved metabolic parameters
remains anuric and cr increasing, follow bladder scan
c3 is low suspect ICGN from sepsis, ISABELLE +ve await titer and ANCA
plan HD tomorrow, will need UF since wt is up
holding IVF, unless hemodynamics demand
may need to change to tunneled catheter if remains on HD
lactate is normalized
bp stable off pressors
abx per ID
d/w family at bedside (son and daughter) and on speakerphone.
From previous discussion They are concerned that he will have a difficult time processing negative information and would like to be the ones to relay clinical information to him if possible (short of patient asking a direct question regarding
prognosis)
d/w ICU and nursing
high risk encounter
-
-
Date of Service: February 05, 2025
CC / HPI / ROS
-
Chief Complaint:
JESUS
History of Present Illness:
parikh out, bladder scan without urine
lactate improving to 1.2
JESUS/HD tolerated HD yesterday
off pressors ,BP stable
corrected fan normal, WBC improving to 19.5
Review of Systems:
confused, was choking on ice chips per nursing so is NPO
on O2 4lit
no cp or sob noted
Labs
-
Labs:
WBC 19.5 10^3/uL (4.8-10.8) H 02/05/25 03:41
RBC 3.23 10^6/uL (4.70-6.10) L 02/05/25 03:41
Hgb 9.7 g/dL (13.0-18.0) L 02/05/25 03:41
Hct 28.3 % (39.0-52.0) L 02/05/25 03:41
Plt Count 307 10^3/uL (130-400) D 02/05/25 03:41
Sodium 133 mmol/L (135-145) L 02/05/25 03:41
Potassium 4.1 mmol/L (3.5-5.1) 02/05/25 03:41
Chloride 93 mmol/L (98-107) L 02/05/25 03:41
Carbon Dioxide 26 mmol/L (22-30) 02/05/25 03:41
BUN 60 mg/dl (9-20) H 02/05/25 03:41
Creatinine 3.1 mg/dL (0.7-1.3) H 02/05/25 03:41
eGFR 19.82 02/05/25 03:41
Glucose 204 mg/dl (70-99) H 02/05/25 03:41
Calcium 7.5 mg/dl (8.4-10.2) L 02/05/25 03:41
Phosphorus 4.7 mg/dl (2.5-4.5) H 02/04/25 16:14
Tgj-R-Jigowwkfksw Pept > 92380 pg/ml 02/01/25 20:16
Albumin 3.0 g/dl (3.5-5.0) L 02/04/25 16:14
Physical Exam
-
Vital Signs:
Vital Signs
Temp Pulse Resp BP Pulse Ox
97.5 F 77 9 141/60 100
02/05/25 07:49 02/05/25 10:30 02/05/25 10:30 02/05/25 04:00 02/05/25 10:30
Cardiovascular:: Regular rate and rhythm
Respiratory:: Bilateral: Coarse
Lung Excursion:: Normal
Abdomen:: Nontender and Soft
Bowel Sounds:: Normal
Extremity Edema:: +1: Bilateral:
Parikh Catheter: No
--- NOTE | 2025-02-05 11:20 | W.PN.INTV ---
Today's Communication / Plan
Recommendations
Continue current antibiotics
NG tube discontinued
Speech evaluation
Barium swallow evaluation-had difficulty swallowing clear liquids
Remains n.p.o.
Dialysis as able
Physical therapy/Occupational Therapy
Will discontinue arterial line if no vasopressors are required by this afternoon
Analgesia with narcotics
Will consider transfer to intermediate care unit if he remains stable.
Assessment
-
Patient is a 79-year-old male with previous history of diabetes, hypertension, A-fib on Xarelto, pacemaker placement since presenting to ER for infected fifth metatarsal with purulent drainage with resultant erythema on the dorsal aspect of the
foot progressing to generalized erythema and lymphangitis on the lower extremity to mid thigh over the past 4 days. He was taking oral Cipro course but was likely failing outpatient regiment. Admitted to on 01/28/2025. Podiatry was consulted
and performed a bedside I&D with concern for underlying osteomyelitis. He is placed on IV antibiotics with ID following. Developed worsening acute kidney injury and decreased urine output with worsening metabolic acidosis. HD catheter placed and
hemodialysis initiated on 02/02/2025. Lactic acid was noted as well. He has been hemodynamically stable not on pressors. He is transferred to ICU for worsening profound sepsis 02/02/25.
Severe sepsis, not on pressors
Infected R toe complicated by osteomyelitis and cellulitis of the lower extremity
Status post fifth ray amputation 02/03/[id number]. Brinkley.
Hypoxemic respiratory failure: Suspected aspiration event.
Projectile vomiting with abdominal distention 02/03/2025
Suspected ileus
Leukocytosis
Thrombocytosis
Anion gap severe metabolic acidosis
Acute kidney injury with oliguria now on HD 02/02/25
Hyperkalemia
Lactic acidosis
TME due to above
Conditions present prior to admission
PAF on Xarelto
Atypical syncope
Presence of cardiac pacemaker
Essential (primary) hypertension
Obesity
History of hepatitis r/t mononucleosis 1989
Diverticulosis/Colon polyps
IDDM
HLD
Spinal stenosis in cervical region s/p nerve stimulator implant
Herniated disc, cervical
Lumbar Laminectomy
Bilateral Arthroscopy Knees
Plan
Patient is critically ill, requiring vasopressors, profound metabolic acidosis with worsening renal function.
-
Toxic metabolic encephalopathy/delirium due to above-overall improved.
Has chronic pain issues in his lumbar and cervical spine
Continue Dilaudid as needed with close monitoring.
-
Septic shock: Resolved.
Off vasopressors since 02/04/2025
-
Fever curve improved, leukocytosis improved, underlying right toe infection complicated by osteomyelitis and cellulitis
Podiatry and vascular surgery consulting.
Underwent toe I&D 01/31/2025
Continue antibiotic, ID following
Cultures : Wound culture with MRSA
Seems to be clinically responding to current antibiotic regimen.
-
Lactic acidosis trending lower.
Vascular surgery correspondence reviewed: Angiogram to evaluate peripheral arterial disease on hold.
CT of the lower extremity 02/04/2025 noted with edema. No evidence for abscesses or subcutaneous air. Will wait for vascular opinion.
There is mild to moderate amount of fluid on the left knee-on exam not erythematous or tender. Unclear significance. If there is no ongoing improvement may need to consider arthrocentesis.
Thickening of the bladder: Uncertain significance. Patient is anuric. Already on antibiotics.
Continue to check bladder residuals-currently none. Enlarged prostate noted.
-
Acute kidney injury/metabolic acidosis: Improved.
Still without significant urinary output.
CT abdomen pelvis without bowel ischemia
? Related to metformin.
Nephrology following
Continue dialysis per protocol-May need permanent dialysis.
-
Cardiac history reviewed--hypertension, A-fib on OAC/pacemaker
Prior ECHO reviewed indicating normal function
Currently NPO.
Monitor on telemetry
Heparin drip-follow PTT
Cardiology following
Hypoxemic respiratory failure:Anemia: On low rate supplemental oxygen.
Suspect aspiration pneumonitis as the patient had vomiting earlier today
Chest x-ray without infiltrate
Continue oxygen supplementation to maintain pulse ox above 90%-currently 3-4 L.
Expiratory wheezing initially but not resolved likely post aspiration.
Incentive spirometry encouraged
-
Prior history of lung disease: None, but suspect untreated sleep apnea
AB.- indicating primary metabolic acidosis
Not the greatest candidate for noninvasive mechanical ventilation due to abdominal distention and vomiting.
-
Abdominal distention improved: NG tube discontinued 02/05/2025.
Suspect patient has degree of gastroparesis.
Clear liquid diet started but patient had difficulty swallowing
Speech evaluation ongoing
Modified barium swallow ordered
-
Aspiration precautions, HOB > 30 degrees
GI prophylaxis if indicated for mechanical ventilation >48 hours, prior history of GERD, stress ulcer formation in the critically ill
JESUS-hypotensive insult/?contrast/sepsis.
Oliguric
Renal following, initiated on HD 02/02/2025
Creat at baseline 0.9-1.0, no history of renal disease
Gonzalez in place. Poor urinary output.
Replete electrolytes as needed
Continue dialysis as necessary.
Nephrology continues to follow
-
Anemia: Multifactorial
No indication for transfusion
Continue to follow
-
DVT prophylaxis: Currently on a heparin drip.
Left upper extremity swelling: Ultrasound negative 02/04/2025.
Patient is in anasarca due to hypovolemia and IV fluid resuscitation/acute kidney injury.
-
H/o diabetes, can continue on home meds, SS for coverage
Currently n.p.o.
Blood sugar target in the hospital 140-180
HbA1c 7.1, 7.6--indicating likely poor control
-
Dr. Cheema updated daughter and in detail 02/03/2025, 02/04/2025, 02/05/2025 extensively.
Case has been discussed with multiple consultants
Diagnostic Data
Chest X-Ray: 02/02/25- Placement of a right internal jugular dual-lumen dialysis catheter with the tip in the SVC. Stable left cardiac conduction device and spinal stimulator leads. Low lung volumes. Mild bibasilar atelectasis. Possible small layering
left pleural fluid. No pneumothorax. Stable enlargement of the cardiac silhouette.
CT Scan: AP 02/01/25- Multifocal atherosclerosis throughout the bilateral lower extremities. Diminished flow in the left anterior tibial artery with some apparent distal reconstitution, and diminished flow at the distal aspect of the left peroneal
artery at the level of the ankle. Short segment high-grade stenosis of the distal right SFA. Diminutive right calf vessels with multifocal stenoses. Small bilateral pleural effusions. Urinary bladder wall thickening with inflammatory fat stranding.
Recommend correlation with a urinalysis for acute cystitis.
Echo: 10/02/24- Normal left ventricular size and systolic function. Mild concentric left ventricular hypertrophy. No regional wall motion abnormalities are seen. LV ejection fraction is 60-65% by volumetric assessment. Thickened mitral valve leaflets
with mild mitral stenosis. Peak/mean gradients across the mitral valve are 11/4 mmHg, respectively. Trace mitral regurgitation. Mitral annular calcification. Thickened and calcified aortic valve with mild aortic stenosis. Peak/mean gradients across
the aortic valve are 18/10 mmHg, respectively. The aortic regurgitation. Tricuspid valve opens normally with trace tricuspid regurgitation. Estimated pulmonary artery pressure of 30 mmHg. Compared to prior study 09/22/2021 there is mild mild mitral
valve stenosis. There is now mild aortic valve stenosis. There is mild aortic valve insufficiency.
PFT's:
Reports and relevant images were personally reviewed.
Critical Care time 40 mins -- The patient is admitted for acute critical illness for the treatment of vital organ failure and/or prevention of further life-threatening conditions. Total care includes time spent in review of history, physical exam,
medications, hemodynamic/ventilator parameters, laboratory data, imaging and discussion with house staff, pharmacy, respiratory therapy, octave board racker, and nursing.
Subjective Dataa
Subjective Data
Date of Service:
Date of Service: February 05, 2025
Chief Complaint: User Support Specialist Follow Up (Septic shock/acute kidney injury/metabolic acidosis)
Subjective:
Patient complains of being tired
Continues to have intermittent coughing without phlegm production
Tolerated dialysis yesterday
Vasopressors have been discontinued
Pain is better controlled
Review of Systems
Cardiopulmonary: Dyspnea, Dyspnea on Exertion and Cough
GI: Abdominal Pain (n) and Nausea (n)
Objective Data
Data Reviewed
Vital Signs / I&O / Oxygen:
Vital Signs
Temp Pulse Resp BP Pulse Ox
97.5 F 77 9 141/60 100
02/05/25 07:49 02/05/25 10:30 02/05/25 10:30 02/05/25 04:00 02/05/25 10:30
Intake and Output
02/04/25 02/05/25 02/06/25
06:59 06:59 06:59
Intake Total 4661.6 / 4839.6 1731.6 / 1741.6
Output Total 2450 / 2450 350 / 350
Balance 2211.6 / 2389.6 1381.6 / 1391.6
SaO2 100
Nasal Cannula flow liters per 4
minute
Physical Exam
General: Comfortable
HEENT: Normocephalic
Cardiovascular: S1-S2 and Irregular Rhythm
Respiratory: Wheeze (Mild expiratory) and Accessory Resp Muscle Use (At rest)
GI: Soft, Distended (Tympanic), Non Tender and NG Tube
Neurology: Awake, Alert, No Motor Deficits and Other (Follow simple command)
Skin: Other (Left foot is dressed. No significant bleeding.) and Other (Pale)
Labs/Micro/Reports
Lab Data
02/05/25 03:41
02/05/25 03:41
Laboratory Results
02/04/25 02/05/25 02/05/25
16:14 00:53 06:38
APTT > 200 H* 109.1 H 132.7 H
Microbiology
02/03/25 21:30 Foot - Left Gram Stain - Preliminary
02/03/25 21:30 Foot - Left Gram Stain - Preliminary
02/02/25 13:44 Urine Urine Culture - Final
NO GROWTH
01/29/25 04:07 Blood/Venous Blood Culture - Final
No Growth - Final Report
01/28/25 12:24 Blood/Venous Blood Culture - Final
No Growth - Final Report
01/31/25 09:04 Foot - Left Wound Culture - Final
Staph aureus MRSA
01/31/25 09:04 Foot - Left Gram Stain - Final
--- NOTE | 2025-02-05 12:09 | PTOTSP ---
Speech Therapy Evaluation:
Pt presents with signs concerning for oropharyngeal dysphagia, likely acute related to prolonged hospitalization with multiple comorbidities, resulting in weakness/deconditioning. At bedside, no overt coughing observed, however wet vocal quality
present following initial ice chip trial. Pt able to produce strong throat clear, in which vocal quality improved. Did not observe wet vocal quality following subsequent trials. Suspect performance at bedside likely related to mentation and suspect
improvement as cognitive status improves. Risk of aspiration increased during periods of lethargy.
Recommend:
1. Cautious diet initiation of puree and thin liquids
2. Medications crushed in puree
3. Strict aspiration precautions: only feed when awake, alert, accepting
4. Low threshold to d/c oral diet and make NPO if pt demonstrating s/sx of aspiration or worsening in respiratory status/chest imaging
5. 1:1 assistance and supervision with all PO intake
6. MINE SAFETY MANAGER to follow to monitor tolerance of diet, assess candidacy for diet advancement, and determine of pt would benefit from instrumental assessment
[2025-02-05 12:45] LABS: Glucose - Point of Care 242 mg/dl (70-99)
--- NOTE | 2025-02-05 13:41 | W.PN.POD ---
Today's Communication
Today's Communication
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
Assessment / Plan
-
Left foot Diabetic foot infection - abscess, cellulitis, osteomyelitis 5th MPJ
Sepsis
JESUS
IDDM
neuropathy
PAD
Plan:
The left foot wound was flushed and dressed with silver alginate today. Continue vanco/cefipime per ID. Bone & would cultures pending. 5th ray pathology and proximal clean margin pending. Await vascular plans. will follow
Subjective
Chief Complaint
S/P Left partial 5th ray amputation - POD # 2
Subjective
Patient awake and responsive to questions. No complaints of foot pain.
Objective
Temp Pulse Resp BP Pulse Ox
97.6 F 77 11 141/60 98
02/05/25 11:48 02/05/25 12:15 02/05/25 12:15 02/05/25 04:00 02/05/25 12:15
02/05/25 03:41
02/05/25 03:41
Vital Signs and Lab results were reviewed.
Physical Exam
Physical Exam
Left foot with bandages intact, minimal strikethrough on inner bandages. non-palpable pulses, CFT delayed, Packing in place, wound bed is clean, no purulence expressed. Would edges are viable, no necrosis. erythema significantly improved but no
resolved.
--- NOTE | 2025-02-05 14:10 | W.PN.UPDATE ---
Update Note
Progress Note Update
Continues to clinically improve
Off vasopressors
Tolerating dialysis
Improved leukocytosis
Resolved metabolic acidosis
Lactic acid has cleared
Patient is more alert and cooperative.
Will transfer to IMU.
Pulmonary will continue to follow briefly for hypoxemia 3 to 4 L. Suspect due to prior aspiration pneumonitis as well as subsegmental atelectasis.
--- NOTE | 2025-02-05 14:11 | PTCARENOTE ---
Pt very depressed. Per the daughter he is a 'complainer' at baseline. He stated he would not talk with a psychiatrist if we were to consult one. He was provided supportive care and also informed of the plan of care moving on. He will require an
immense amount of support and encouragement.
--- NOTE | 2025-02-05 14:49 | CM ---
POD #2, more alert and cooperative, off pressors, NPO, HD, Discharge POC: Acute vs SNF.
[2025-02-05 14:59] LABS: APTT 68.2 Sec (23.4-35.0)
--- NOTE | 2025-02-05 15:30 | PTCARENOTE ---
Repositioned pt. He continues to be lethargic. Pt's and daughter are present in the room. Clarified with Dr. Oneill via TT if Heparin drip is to be continued. He is ok with OAC if other consultants agree. Dr. Bravo notified of this via TT.
Oxygen nasal cannula tapered to 2 liters nasal cannula.
[2025-02-05] MEDS: MAXIPIME 1000 MG IV (18:08)
[2025-02-05] MEDS: STERILE WATER FOR INJECTION 10 ML IV (18:08)
[2025-02-05 18:17] LABS: Glucose - Point of Care 245 mg/dl (70-99)
[2025-02-05 18:40] LABS: Serine Protease-3, IgG 0 AU/mL (0-19)
--- NOTE | 2025-02-05 19:38 | PTCARENOTE ---
received pt from icu this afternoon. no changes in assessment as reported. afib on monitor with controlled rate. left food dressing intact with small amount bloody drainage. heparin drip infusing at 900 units/hr. family at bedside.
[2025-02-05] MEDS: REMOVE LIDOCAINE PATCH 1 PATCH REMOVE (21:29)
[2025-02-05 21:59] LABS: APTT 95.1 Sec (23.4-35.0)
[2025-02-05] MEDS: LANTUS 0.1 UNITS SC (23:47)
[2025-02-05 23:57] LABS: Glucose - Point of Care 277 mg/dl (70-99)
[2025-02-06] VITALS (35 sets, daily range): BP systolic 107–163; BP diastolic 58–119; BMI 33.4
[2025-02-06 04:22] LABS: Hematocrit 25.4 % (39.0-52.0); Hemoglobin 8.8 g/dL (13.0-18.0); Mean Corp Hgb Conc. 34.6 g/dL (33.0-37.0); Mean Corpuscular Volume 87.0 fL (80.0-94.0); Platelet Count 234 10^3/uL (130-400); Red Cell Dist. Width 14.6 % (11.5-14.5)
--- NOTE | 2025-02-06 04:24 | PTCARENOTE ---
Received pt at change of shift. Pt not oriented to time; drowsy but arousable. Family at bedside. B/l lower extremity +1-2 pitting edema. PP present with Doppler. Left foot bandage C/D/I. Feet elevated on air cushion. Q2T in place. Cleansed
with CHG wipes. Heparin gtt infusing at 900 units/hr through R[facility]. Pt offers no complaints at this time. Resting in bed with call cervantes in reach.
[2025-02-06 04:26] LABS: APTT 90.7 Sec (23.4-35.0)
[2025-02-06 05:39] LABS: Blood Urea Nitrogen 83 mg/dl (9-20); Calcium 7.6 mg/dl (8.4-10.2); Carbon Dioxide 25 mmol/L (22-30); Chloride 94 mmol/L (98-107); Estimated Creatinine Clearance 18 ml/min; Glucose 242 mg/dl (70-99); Potassium 4.0 mmol/L (3.5-5.1); Sodium 132 mmol/L (135-145); eGFR 14.17
[2025-02-06] MEDS: LIDOCAINE 4% PATCH 1 PATCH TOPICAL (07:39)
[2025-02-06] MEDS: METAMUCIL, KONSYL 1 PACKET PO ×2 (07:39→20:09)
[2025-02-06] MEDS: NOVOLOG FLEXPEN-LOW RESISTANCE 3 UNITS SC (07:41)
[2025-02-06] MEDS: SENOKOT-S 2 TABLET PO ×2 (07:43→20:09)
[2025-02-06 07:44] LABS: Glucose - Point of Care 258 mg/dl (70-99)
--- NOTE | 2025-02-06 08:07 | W.PN.HOSP.TC ---
Today's Communication/Plan
-
Adjust insulin
Await goals of care decision
Assessment / Plan
Assessment / Plan
Gen-awake, alert, NAD
HEENT-NC, AT, anicteric, clear oral mm
Neck-supple
CV-reg, no M, +S1/S2
Lungs-clear B/L
Abd-soft, NT, ND
Ext-mild left upper extremity edema
Musculoskeletal-no cyanosis, clubbing, left foot dressing intact
Skin-warm and dry
Neuro-grossly non-focal
Psych-calm, cooperative
Acute TME -due to sepsis, shock, critical illness. Remains somewhat confused still in terms of day and night.
Septic shock due to to left fifth metatarsal abscess -possible underlying osteomyelitis. IV vancomycin/cefepime per ID.
Shock resolved. Off vasopressors. Blood cultures negative so far. Wound culture shows MRSA.
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
Leukocytosis improving. Afebrile.
Unable to have MRI due to spinal stimulator not active
Wound culture growing MRSA
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 Podiatry following. Bone and tissue cultures pending. Pathology from bone margins pending.
PAD -CT angiogram done 02/01 shows multifocal atherosclerotic disease throughout the bilateral lower extremities. Diminished flow in the left anterior tibial artery with some apparent distal reconstitution, diminished flow at the distal aspect of the
left peroneal artery at the level of the ankle. Short segment high-grade stenosis of the distal right SFA.
Spoke with Dr. Gonzalez from vascular surgery. He plans to speak with patient and family today regarding goals of care and decision regarding potential revascularization in the setting of acute kidney injury. Obviously there is risk for further
deterioration of renal function and permanent kidney injury requiring long-term dialysis with angiogram. However, without revascularization high risk for limb loss.
Lactic acidosis due to sepsis/shock -lactic acid now normalized.
Differential diagnosis include metformin induced versus worsening sepsis
Metformin discontinued 02/01
MAP has been consistently greater than 65
Acute kidney injury -due to septic shock. Anuric. Gonzalez catheter in place. Etiology of JESUS most likely due to septic shock and medications and less likely due to contrast-induced nephropathy as contrast exposure was on 02/01, creatinine was 3.3
morning of 02/01.
Appreciate nephrology input, dialysis started 02/02
High anion gap metabolic acidosis due to septic shock, lactic acidosis. Metabolic acidosis resolved. Off sodium bicarbonate IV.
Hold metformin, lisinopril, hydrochlorothiazide, trend creatinine, no nephrotoxic drugs or NSAIDs
Ileus -developed nausea and vomiting on 02/03. Abdominal x-ray on 02/03 showed moderate to large amount of gaseous distention of the stomach without dilated loops of bowel otherwise.
Previously required NG tube placement, subsequently removed.
Dysphagia -unknown acuity. Suspect related to critical illness. Evaluated by speech therapy, recommendation for pur�ed diet and thin liquids, aspiration precautions.
LUE edema -Doppler ultrasound negative for DVT.
Peripheral artery disease
Appreciate vascular surgery input
Originally planned for left lower extremity angiogram Sunday 02/04, but will hold due to renal failure
Acute on chronic heart failure with preserved ejection fraction
Cardiology following, continue dialysis as per nephrology
Troponin elevation -suspect acute nonischemic myocardial injury due to septic shock. Troponin trending down.
Permanent atrial fibrillation with rapid ventricular response
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
Continue IV heparin. Was on Xarelto prior to admission.
Hyponatremia -monitor for now. Sodium stable at 132 today. Component of hyperglycemia induced hyponatremia.
Hyperphosphatemia -due to JESUS. Improving.
DM 2 with hyperglycemia -at home he was on insulin degludec 24 units at bedtime, NovoLog sliding scale with meals, metformin.
Hemoglobin A1c 7.1 on 01/13/2025
Hold metformin 1000 mg daily due to JESUS
Currently on Lantus 10 units at bedtime, low resistance NovoLog scale.
Glucose 242 this morning, 277 last night. Can increase Lantus to 12 units at bedtime, add mealtime insulin when tolerating solid food.
Essential hypertension -meds on hold for hypotension, shock.
Constipation -now with frequent loose stools. Fecal management system in place.
Hyperlipidemia -was on lovastatin prior to admission.
Obesity due to excess calories
DVT prophylaxis -IV heparin drip
Full code
PT/OT
Anticipated Discharge: > 48 hours
Subjective/Interval History
-
Date of Service: February 06, 2025
Patient seen and examined. No new complaints.
Objective Data
-
Labs:
Laboratory Results
02/05/25 02/06/25 02/06/25
21:32 03:45 04:47
WBC 11.3 H
Hgb 8.8 L
Hct 25.4 L
Plt Count 234 D
APTT 95.1 H 90.7 H
Sodium Cancelled 132 L
Potassium Cancelled 4.0
Chloride Cancelled 94 L
Carbon Dioxide Cancelled 25
BUN Cancelled 83 H
Creatinine Cancelled 4.1 H*
Glucose Cancelled 242 H
Calcium Cancelled 7.6 L
Vital Signs:
Vital Signs
Temp Pulse Resp BP Pulse Ox
98.6 F 77 11 140/93 94
02/06/25 02:37 02/06/25 06:00 02/06/25 06:00 02/06/25 06:00 02/06/25 06:00
I&O
02/05/25 02/06/25 02/07/25
06:59 06:59 06:59
Intake Total 1731.6 / 1741.6 466 / 466
Output Total 350 / 350 0 / 0
Balance 1381.6 / 1391.6 466 / 466
Review of Systems
-
History Source: Patient
All other systems: Reviewed and negative
--- NOTE | 2025-02-06 08:20 | PHA.VAN.FU ---
Addendum entered and electronically signed by Jacinda Mccabe Aidan 02/06/25 16:32:
Agree with assessment and plan
Original Note:
Vancomycin Assessment / Plan
- Assessment
Hemodialysis Schedule: Other (new start HD for JESUS)
- Assessment - Therapeutic Drug Monitoring
Random Level: 19.2 - pre-HD, drawn yesterday ~62.75H after last dose of 750mg from 02/02
- Dosing Plan
Dosing by Level: Re-dose today (give 750mg x1 dose post-HD)
- Monitoring Plan
Random Level: 02/07 06
- Follow Up
Pharmacy will continue to follow.
Vancomycin Follow UP
- -
Patient Age: 79
Patient Sex: Male
Vancomycin Day #: 10
Indication: Skin And Soft Tissue
Requesting Provider: Dr. Archer/Dr. Maguire
Pertinent Antimicrobial Allergies:
NKDA
Height / Weight:
Height 5 ft 9 in
Actual Weight 102.6 kg
Pertinent Past Medical History: BMI ~30.5, DM 2
- Vital Signs / Lab Results
Temp Pulse Resp BP Pulse Ox
98.6 F 77 11 140/93 94
02/06/25 02:37 02/06/25 06:00 02/06/25 06:00 02/06/25 06:00 02/06/25 06:00
Lab Results - Hematology
02/03/25 02/04/25 02/05/25
14:51 02:51 03:41
WBC 41.3 H* 33.3 H 19.5 H
02/06/25
03:45
WBC 11.3 H
Lab Results - Chemistry
02/03/25 02/03/25 02/03/25
10:08 16:04 22:27
BUN 72 H 42 H 53 H
Creatinine 5.1 H* 3.0 H 3.5 H
Estimated Creat Clear 14 24 20
Albumin
02/04/25 02/04/25 02/05/25
02:51 16:14 03:41
BUN 60 H 38 H 60 H
Creatinine 3.7 H 2.5 H 3.1 H
Estimated Creat Clear 19 29 23
Albumin 3.0 L
02/06/25 02/06/25
03:45 04:47
BUN Cancelled 83 H
Creatinine Cancelled 4.1 H*
Estimated Creat Clear Cancelled 18
Albumin
02/03/25 02/03/25 02/03/25
10:08 12:16 16:04
Lactic Acid 13.7 H* 14.6 H* 10.8 H*
02/03/25 02/03/25 02/04/25
20:09 22:27 02:51
Lactic Acid 9.6 H* 9.1 H* 8.0 H*
02/04/25 02/04/25 02/04/25
06:00 06:14 10:33
Lactic Acid Cancelled 7.4 H* 6.6 H*
02/04/25 02/05/25
16:14 00:53
Lactic Acid 2.4 H 1.7
Microbiology Results
02/03/25 21:30 Anaerobic Culture - Preliminary
Foot - Left Culture pending. Anaerobic cultures are examined after 3
days incubation. Additional information to follow.
02/03/25 21:30 Wound Culture - Preliminary
Foot - Left Staphylococcus aureus
Gram Stain - Preliminary
02/03/25 21:30 Tissue Culture - Preliminary
Foot - Left Staphylococcus aureus
Gram Stain - Preliminary
Therapeutic Drug Monitoring
Random Vancomycin 19.2 ug/ml 02/05/25 03:41
--- NOTE | 2025-02-06 08:27 | W.PN.ID1 ---
Date of Service
Date of Service: February 06, 2025
Today's Communication
Continue Vanco/cefepime
Assessment / Plan
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
.spine stimulator incompatible with MRI.
# PAD, left 5th ischemic toe
. s/p CT angiogram
3 s/p septic shock
# Leukocytosis improving
# metabolic/Lactic acidosis resolved
# Suspecting pneumonia
# JESUS
. HD started 02/02
. Urine eos neg
# DM2 with neuropathy
- Blood cx's neg. Ucx neg.
- Wound cx MRSA
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
OR cx's : MRSA
Bone path pending
- Continue Vancomycin,dosing by level
- Continue cefepime 1g IV q24 (d4 of )for suspecting PNA
- Trend WBC/vitals.
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
Diabetes mellitus type 2
Hypertension
Atrial fibrillation on Xarelto
pacemaker placement
Chronic pain with spinal stimulator, not active
Chronic left leg weakness due to history of back injury during lumbar procedure 2019
Lumbar laminectomy
Chief Complaint
-: Clinical Sepsis and Other (osteo)
Subjective / Review of Systems
More alert. Feels better.
Vital Signs / Physical Exam
Vital Signs
Vital Signs
Temp Pulse Resp BP Pulse Ox
98.6 F 77 11 140/93 94
02/06/25 02:37 02/06/25 06:00 02/06/25 06:00 02/06/25 06:00 02/06/25 06:00
Physical Exam
Constitutional: Comfortable
Cardiovascular: Irregular Rate and S1/S2
Pulmonary: Non Labored
Gastrointestinal: Soft, Non Tender and Non Distended
Extremities: Edema
Wound: Other (LLE dressing in place)
Neurological: AO x 3
Lines: HD Cath
Objective Data
Lab Data
Lab Results
02/06/25 03:45
02/06/25 04:47
ESR 78 mm/hour (0-20) H 01/28/25 12:23
PT 27.8 Sec (11.4-14.6) H 02/03/25 00:54
INR 2.59 02/03/25 00:54
APTT 90.7 Sec (23.4-35.0) H 02/06/25 03:45
Estimated Creat Clear 18 ml/min 02/06/25 04:47
Lactic Acid 1.7 mmol/L (0.7-2.0) 02/05/25 00:53
Total Bilirubin 1.0 mg/dl (0.2-1.3) 02/04/25 16:14
AST 69 U/L (17-59) H 02/04/25 16:14
ALT 43 U/L (0-50) 02/04/25 16:14
Alkaline Phosphatase 115 U/L (38-126) 02/04/25 16:14
C-Reactive Protein 228.10 mg/L (0.0-10.00) H 01/28/25 12:23
Most recent labs reviewed.
Micro Results:
02/03/25 21:30 Anaerobic Culture - Preliminary
Foot - Left Culture pending. Anaerobic cultures are examined after 3
days incubation. Additional information to follow.
02/03/25 21:30 Wound Culture - Preliminary
Foot - Left Staphylococcus aureus
Gram Stain - Preliminary
02/03/25 21:30 Tissue Culture - Preliminary
Foot - Left Staphylococcus aureus
Gram Stain - Preliminary
02/02/25 13:44 Urine Culture - Final
Urine NO GROWTH
01/29/25 04:07 Blood Culture - Final
Blood/Venous No Growth - Final Report
01/28/25 12:24 Blood Culture - Final
Blood/Venous No Growth - Final Report
01/31/25 09:04 Wound Culture - Final
Foot - Left Staph aureus MRSA
Gram Stain - Final
02/01/25 19:47 Influenza Types A & B (GIFTY) - Final
Nasal Swab Negative for Influenza A & B, NAAT
Negative results must be combined with clinical observations
and patient history.
Nucleic Acid Amplification test (NAAT)performed on the
[employer] platform.
01/30/25 10:04 Wound Culture - Final
Foot - Left Staph aureus MRSA
Gram Stain - Final
01/28/25 17:44 MRSA Screen - Final
Nose No Methicillin Resistant Staphylococcus aureus isolated.
01/28/25 Left foot XRAY: No acute osseous abnormality. Mild soft tissue swelling along the lateral forefoot.
02/01/25 CXR: Hazy increased density over the left lower hemithorax, probably mainly due to a posteriorly layering pleural effusion.
02/03/25 CXR: Parenchymal opacity within the right lower lung and the left mid to lower lung, similar to recent radiograph. Main differential considerations of atelectasis and/or pneumonia.
02/04/25 CT LE: 1. Interval amputation of the phalanges of the left 5th toe and the 5th metatarsal head since the prior exam performed 02/01/2025.
2. Large soft tissue wound distal to the 5th metatarsal with soft tissue emphysema extending deep to the lateral cortex of the 4th metatarsal head.
3. Moderate subcutaneous edema throughout the left lower leg and thigh.
4. Moderate to severe calcific atherosclerotic plaque throughout the left lower extremity.
5. Small to moderate-sized left knee joint effusion.
6. Severe anasarca in the left lateral abdominal wall.
7. Moderate retroperitoneal and extraperitoneal edema in the pelvis.
8. Severe diffuse urinary bladder wall thickening with adjacent perivesical inflammation suggesting ACUTE CYSTITIS. Chronic urinary bladder outlet obstruction is also likely present given severe enlargement of the prostate gland.
9. Mild circumferential wall thickening and fluid distention of the rectum suggesting an acute prostatitis. Rectal tube in place.
Care Review
Plan reviewed with: Physician (Dr. Bravo)
--- NOTE | 2025-02-06 10:16 | W.PN.PUL.V3 ---
Today's Communication / Plan
-
Monitor renal function
Continue antibiotics
Hemodialysis
Wean oxygen
Assessment
-
Patient is a 79-year-old male with previous history of diabetes, hypertension, A-fib on Xarelto, pacemaker placement since presenting to ER for infected fifth metatarsal with purulent drainage with resultant erythema on the dorsal aspect of the
foot progressing to generalized erythema and lymphangitis on the lower extremity to mid thigh over the past 4 days. He was taking oral Cipro course but was likely failing outpatient regiment. Admitted to on 01/28/2025. Podiatry was consulted
and performed a bedside I&D with concern for underlying osteomyelitis. He is placed on IV antibiotics with ID following. Developed worsening acute kidney injury and decreased urine output with worsening metabolic acidosis. HD catheter placed and
hemodialysis initiated on 02/02/2025. Lactic acid was noted as well. He has been hemodynamically stable not on pressors. He is transferred to ICU for worsening profound sepsis 02/02/25.
Severe sepsis, not on pressors
Infected R toe complicated by osteomyelitis and cellulitis of the lower extremity
Status post fifth ray amputation [id number]. Brinkley.
Hypoxemic respiratory failure: Suspected aspiration event.
Projectile vomiting with abdominal distention 02/03/2025
Suspected ileus
Leukocytosis
Thrombocytosis
Anion gap severe metabolic acidosis
Acute kidney injury with oliguria now on HD 02/02/25
Hyperkalemia
Lactic acidosis
TME due to above
Conditions present prior to admission:
PAF on Xarelto
Atypical syncope
Presence of cardiac pacemaker
Essential (primary) hypertension
Obesity
History of hepatitis r/t mononucleosis 1989
Diverticulosis/Colon polyps
IDDM
HLD
Spinal stenosis in cervical region s/p nerve stimulator implant
Herniated disc, cervical
Lumbar Laminectomy
Bilateral Arthroscopy Knees
Plan
Respiratory status relatively stable
Continue supplemental oxygen as needed-earlier was 92 send saturation
Incentive spirometry
Nebulizers if needed-currently not bronchospastic
Eventual radiographic follow-up
Septic shock as solved-off pressors for 48 hours
Monitor leukocytosis and temperature curve
Infectious disease following
Continue antibiotics per infectious disease
Wound cultures with MRSA
Podiatry following
Vascular surgery following
Monitor renal function
Nephrology following
Hemodialysis as needed
Cardiology following-correspondence reviewed
Atrial fibrillation rate control
Heparin drip continues
Follow hemoglobin
Transfuse as needed
Abdominal distention improved
Nasogastric tube discontinued 02/05/2025
Speech therapy evaluation ongoing
Modified barium swallow
Monitor blood sugar
Insulin supplementation as needed
DVT prophylaxis-on heparin
GI prophylaxis
Nutrition
Early mobilization
Dr. Cheema updated daughter and in detail 02/03/2025, 02/04/2025, 02/05/2025 extensively.
Diagnostic Data
Chest X-Ray: 02/02/25- Placement of a right internal jugular dual-lumen dialysis catheter with the tip in the SVC. Stable left cardiac conduction device and spinal stimulator leads. Low lung volumes. Mild bibasilar atelectasis. Possible small layering
left pleural fluid. No pneumothorax. Stable enlargement of the cardiac silhouette.
CT Scan: AP 02/01/25- Multifocal atherosclerosis throughout the bilateral lower extremities. Diminished flow in the left anterior tibial artery with some apparent distal reconstitution, and diminished flow at the distal aspect of the left peroneal
artery at the level of the ankle. Short segment high-grade stenosis of the distal right SFA. Diminutive right calf vessels with multifocal stenoses. Small bilateral pleural effusions. Urinary bladder wall thickening with inflammatory fat stranding.
Recommend correlation with a urinalysis for acute cystitis.
Echo: 10/02/24- Normal left ventricular size and systolic function. Mild concentric left ventricular hypertrophy. No regional wall motion abnormalities are seen. LV ejection fraction is 60-65% by volumetric assessment. Thickened mitral valve leaflets
with mild mitral stenosis. Peak/mean gradients across the mitral valve are 11/4 mmHg, respectively. Trace mitral regurgitation. Mitral annular calcification. Thickened and calcified aortic valve with mild aortic stenosis. Peak/mean gradients across
the aortic valve are 18/10 mmHg, respectively. The aortic regurgitation. Tricuspid valve opens normally with trace tricuspid regurgitation. Estimated pulmonary artery pressure of 30 mmHg. Compared to prior study 09/22/2021 there is mild mild mitral
valve stenosis. There is now mild aortic valve stenosis. There is mild aortic valve insufficiency.
Reports and relevant images were personally reviewed.
Subjective Data
-
Date of Service:
Date of Service: February 06, 2025
Chief Complaint: Pulmonary Follow Up and Dyspnea Follow Up
Subjective:
Receiving dialysis, no complaints of worsening shortness of breath, has some Rillito exertion, nonproductive cough, no chest pain or abdominal pain
Review of Systems
General: Other (Per HPI)
Objective Data
Data Reviewed
Vital Signs / I&O:
Vital Signs
Temp Pulse Resp BP Pulse Ox
97.8 F 77 11 140/93 95
02/06/25 07:10 02/06/25 06:00 02/06/25 06:00 02/06/25 06:00 02/06/25 07:30
Intake and Output
02/05/25 02/06/25 02/07/25
06:59 06:59 06:59
Intake Total 1731.6 / 1741.6 466 / 466
Output Total 350 / 350 0 / 0
Balance 1381.6 / 1391.6 466 / 466
SaO2: 95
Nasal Cannula flow liters per minute: 4
Physical Exam
General: Respiratory Distress (n) and Comfortable
HEENT: Normocephalic, Anicteric and Moist Mucous Membranes
Cardiovascular: Regular Rhythm and Murmur
Respiratory: Crackles (Basilar), Rhonchi (n), Non-Labored Respirations, Accessory Resp Muscle Use (n) and Stridor (n)
GI: Soft, Non Distended and Non Tender
Neurology: Awake, Alert and No Motor Deficits
Skin: Warm, Good Color, Cyanosis (n) and Jaundice (n)
Labs/Micro/Reports
Lab Data
02/06/25 03:45
02/06/25 04:47
Laboratory Results
02/05/25 02/05/25 02/06/25
14:38 21:32 03:45
APTT 68.2 H 95.1 H 90.7 H
Microbiology
02/03/25 21:30 Foot - Left Anaerobic Culture - Preliminary
Culture pending. Anaerobic cultures are examined after 3
days incubation. Additional information to follow.
02/03/25 21:30 Foot - Left Wound Culture - Preliminary
Staphylococcus aureus
02/03/25 21:30 Foot - Left Gram Stain - Preliminary
02/03/25 21:30 Foot - Left Tissue Culture - Preliminary
Staphylococcus aureus
02/03/25 21:30 Foot - Left Gram Stain - Preliminary
02/02/25 13:44 Urine Urine Culture - Final
NO GROWTH
--- NOTE | 2025-02-06 10:19 | W.PN.NEPH.HD ---
Assessment
-
pt seen during HD
no renal recovery noted, cr increasing trend
vitals stable
UF as tolerates , has edema
reviewed with family about potential vasc intervention and risk of further YOVANY
will try to schedule HD around the time of vasc intervention as per family request
temp CVC functions fine, likely need to change to tunneled next week if still on HD
Progress Note - Hemodialysis
-
Date of Service: February 06, 2025
Duration: 30 minutes and 3 hours
Potassium Bath: 3
Calcium Bath: 2.5
Opti-Dialyzer: 160
Ultrafiltration: Other (2-3kg)
Blood Flow: 400
Dialysate Flow: 600
Heparin: no
EPO: 4000
[2025-02-06] MEDS: HEPARIN 25000 UNITS/250 ML IV (10:36)
[2025-02-06] MEDS: VANCOCIN 150 IV (10:39)
[2025-02-06] MEDS: RETACRIT 4000 UNITS IV (10:40)
[2025-02-06 10:44] LABS: ANA, HEp-2, IgG <1:80 (<1:80)
--- NOTE | 2025-02-06 10:56 | W.PN.CARDCBS ---
Addendum entered and electronically signed by Stephany Casey PA-C 02/06/25 12:22:
patient also had trop which peaked at 0.5 on admission, and down trending. check CVE. EF preserved by echo. med mgmt for now as able and could consider eventual OP ischemic evaluation.
Addendum entered and electronically signed by Jessica Earl MD 02/06/25 12:17:
I saw and examined the patient.
The Professor Of Industrial Technology's note was reviewed and I agree with the note.
Family at the bedside. Dialysis ongoing currently.
Comment: Exam consistent with volume overload.
Continuing on hemodialysis for volume control in the setting of acute on chronic heart failure with preserved ejection fraction
Telemetry remains stable
Continue risk factor modification
Permanent atrial fibrillation with controlled ventricular response. Continue IV heparin (pending possible further procedures) eventually resume oral anticoagulation.
Rate control.
Pacemaker in place.
Peripheral vascular disease treatment/management per vascular and primary service. Await update.
Original Note:
Today's Communication / Plan
-
continue IV heparin
afib rate controlled
HD
await family discussion with vascular regarding goals of care
Impression / Plan
-
PCP: Dr. Roman Macedo
Valving Machine Operator: Dr. Munoz
Impression:
Admitted with LLE/left foot cellulitis 01/28/2025
Sepsis related to above
JESUS requiring hemodialysis
Peripheral vascular disease status post left partial fifth ray amputation 02/03/2025
Diabetes mellitus type 2
Hypertension
Permanent atrial fibrillation, RVR
Acute on chronic HFpEF
Dyslipidemia
Obesity
Paroxysmal complete heart block status post dual-chamber pacemaker 2021 ([employer])
Echo 08/2021: EF 55-60, mild concentric LVH, small pericardial effusion
Echo 10/2024: EF 65%, mild MS, mild with gradient 10 mmHg, PASP 30 mmHg
Echo 02/02/2025: EF 60 to 65%, stage II diastolic dysfunction, normal RV size and function
LHC 09/07/21: LAD is on the smaller side and is calcified with diffuse disease and reaches the apex. The second OM is small and has a 40% ostial stenosis. The distal OM 3 inferior branch has an ostial 50% stenosis. RCA has mid 50% stenosis. Given that
this was the area that was positive and the stress test it was decided to proceed with IFR. iFRs of this lesion were serially negative around 0.92 indicating a nonobstructive lesion. Conclusions: moderate nonobstructive coronary atherosclerosis,
normal LV function, mild .
Recommendations:
- He remains in rate controlled atrial fibrillation on review of telemetry overnight
- Presently off all outpatient antihypertensive medications including Toprol 25 mg twice daily, lisinopril 20 mg twice daily, hydrochlorothiazide 50 mg daily, hydralazine 25 mg twice daily
- Currently on HD, new this admission. Cr 4.1 on 02/06. for UF today as with evidence of anasarca on exam
- Vascular surgery following, and ongoing discussions with family regarding goals of care. There is consideration for lower extremity angiogram given PVD requiring left partial fifth ray amputation 02/03/25
- Currently remains on IV heparin while awaiting decision regarding additional procedures. Eventually resume outpatient Xarelto
- Echo this admission with preserved EF
- Continue antibiotics, wound care
- Discussed with nursing. Discussed with family at bedside
HPI: Patient is a pleasant 71-year-old male with a past medical history significant for permanent atrial fibrillation, paroxysmal complete heart block status post dual-chamber pacemaker 2021, hypertension, hyperlipidemia, diabetes mellitus, prior
syncope, nerve stimulator, osteoarthritis who initially presented due to worsening lower extremity infection. Patient was noted to have significant atherosclerosis of bilateral lower extremities. Patient's renal function began to worsen and
patient with significant leukocytosis. Patient and family had reported increasing shortness of breath, decreased oral intake, and nausea. Since admission, patient undergoing treatment of infection with IV antibiotics however, renal function
continued to worsen. Patient underwent implant of dialysis catheter on 02/02/2025 with initiation of hemodialysis. Cardiology consulted due to elevated troponin and elevated BNP. Patient's initial troponin was noted to be 0.5 which is down trended
to 0.35 and 0.315. In discussion with patient and family, he notes some intermittent variable chest discomfort which occasionally occurs with position changes and at rest but no reported chest pain with activity or exertion. Prior to admission,
patient was active and denied chest pain shortness of breath or palpitations with activity or exertion. Additionally, patient's BNP checked on 02/01/2025 was greater than 27,000. Patient is a non-smoker, no alcohol, no illicits. Patient without
significant family history.
Progress Note - Valving Machine Operator
Subjective
Date of Service: February 06, 2025
reports some right sided chest pain with taking deep breaths
Objective
Labs:
02/06/25 03:45
02/06/25 04:47
Labs
Hgb 8.8 g/dL (13.0-18.0) L 02/06/25 03:45
Hct 25.4 % (39.0-52.0) L 02/06/25 03:45
Plt Count 234 10^3/uL (130-400) D 02/06/25 03:45
PT 27.8 Sec (11.4-14.6) H 02/03/25 00:54
INR 2.59 02/03/25 00:54
APTT 90.7 Sec (23.4-35.0) H 02/06/25 03:45
Sodium 132 mmol/L (135-145) L 02/06/25 04:47
Potassium 4.0 mmol/L (3.5-5.1) 02/06/25 04:47
BUN 83 mg/dl (9-20) H 02/06/25 04:47
Creatinine 4.1 mg/dL (0.7-1.3) H* 02/06/25 04:47
Glucose 242 mg/dl (70-99) H 02/06/25 04:47
Vital Signs and I&O:
Vital Signs
Temp Pulse Resp BP Pulse Ox
97.8 F 77 11 140/93 95
02/06/25 07:10 02/06/25 06:00 02/06/25 06:00 02/06/25 06:00 02/06/25 10:16
Vital Signs
Temp Pulse Resp BP Pulse Ox
97.8 F 77 11 140/93 95
02/06/25 07:10 02/06/25 06:00 02/06/25 06:00 02/06/25 06:00 02/06/25 10:16
Intake & Output
02/04/25 02/05/25 02/06/25 02/07/25
07:59 07:59 07:59 07:59
Intake Total 4812.6 / 5070.6 1563.6 / 1563.6 456 / 456
Output Total 2450 / 2450 350 / 350 0 / 0
Balance 2362.6 / 2620.6 1213.6 / 1213.6 456 / 456
Physical Exam
Physical Exam
GEN: No distress, awake, lethargic
HEENT: supple, anicteric, mmm, eomi
LUNGS: CTA B/L, no wheezes/rales
CV: Irreg, S1/S2, no murmur
ABD: soft, BS+, NT/ND
EXT: No cyanosis, clubbing. 3+ edema of B/L UE and LE
NEURO: Gross non-focal
SKIN: Warm, pink, dry. No rash. on HD
--- NOTE | 2025-02-06 13:47 | PTCARENOTE ---
Pt received in bed @ 0700. Drowsy and lethargic. Dialysis with 3kgs removed. Expressing pain, unable to rate. Refusing pain medication. SaO2 observed 94-98% on room air. Diminished breath sounds. Atrial Fibrillation on calender roll operator. Occasional
pacer angelina observed. Pt with generalized anasarca. Doppler pedal pulses. Pureed diet with think liquids. Pt drank order Nepro supplement, 30% of breakfast. No urine observed. Heparin gtt infusing @ 900 units/hr. Left toe dressing with drainage.
Ricky removed, dressing reinforced with silver alginate, 4x4, abd, and wrapped with new ricky.
[2025-02-06] MEDS: NOVOLOG FLEXPEN 5 UNITS SC ×2 (14:37→17:36)
[2025-02-06] MEDS: NOVOLOG FLEXPEN-LOW RESISTANCE 2 UNITS SC ×2 (14:37→17:36)
[2025-02-06 14:46] LABS: Glucose - Point of Care 203 mg/dl (70-99)
--- NOTE | 2025-02-06 16:32 | VATNOTE ---
RIJ TLC removed per doctor order without difficulty. Pt tolerated procedure well. New dressing with biopatch placed on HD Cath.
[2025-02-06 17:46] LABS: Glucose - Point of Care 202 mg/dl (70-99)
[2025-02-06] MEDS: MAXIPIME 1000 MG IV (17:53)
[2025-02-06] MEDS: STERILE WATER FOR INJECTION 10 ML IV (17:53)
[2025-02-06] MEDS: REMOVE LIDOCAINE PATCH 1 PATCH REMOVE (20:09)
[2025-02-06] MEDS: DUONEB 3 ML INH (20:42)
[2025-02-06 21:47] LABS: Glucose - Point of Care 293 mg/dl (70-99)
[2025-02-06] MEDS: LANTUS 0.12 UNITS SC (23:27)
[2025-02-07] VITALS (64 sets, daily range): BP systolic 102–148; BP diastolic 54–114; PULSE 93; O2SAT 100; BMI 32.4
[2025-02-07 05:40] LABS: APTT 58.0 Sec (23.4-35.0)
[2025-02-07 05:55] LABS: Blood Urea Nitrogen 63 mg/dl (9-20); Calcium 7.6 mg/dl (8.4-10.2); Carbon Dioxide 28 mmol/L (22-30); Chloride 96 mmol/L (98-107); Estimated Creatinine Clearance 22 ml/min; Glucose 296 mg/dl (70-99); HDL Cholesterol 15 mg/dl; LDL Cholesterol, Calculated 36 mg/dl; Potassium 3.9 mmol/L (3.5-5.1); Sodium 131 mmol/L (135-145); Very Low Density Lipoprotein 33 mg/dl (0-30); eGFR 18.39
--- NOTE | 2025-02-07 08:11 | W.PN.CARDCBS ---
Addendum entered and electronically signed by Jessica Earl MD 02/07/25 11:34:
I saw and examined the patient.
The Import Specialist's note was reviewed and I agree with the note.
His son is at the bedside.
Comment: He is sleepy but opens eyes and nods head. Still with some volume overload on exam and lower extremity edema. Left leg is wrapped.
Admitted for sepsis and cellulitis status post vascular procedure. Awaiting vascular input possible angiogram on Monday.
Known pacemaker. Known permanent atrial fibrillation with increased heart rates currently stable. Currently on IV heparin pending procedure.
Blood pressure stable.
New to hemodialysis. Heart failure with preserved ejection fraction. Volume is improving with dialysis.
Telemetry reviewed by me.
- Await vascular plan.
- Continue IV heparin for now.
- Follow rhythm. Rate controlled off of medication
- Volume status currently being managed through dialysis.
Original Note:
Today's Communication / Plan
-
continue IV heparin
await vascular input with family
Impression / Plan
-
PCP: Dr. Roman Macedo
Sr. Vendor Management Associate: Dr. Munoz
Impression:
Admitted with LLE/left foot cellulitis 01/28/2025
Sepsis related to above
JESUS requiring hemodialysis
Peripheral vascular disease status post left partial fifth ray amputation 02/03/2025
Diabetes mellitus type 2
Hypertension
Permanent atrial fibrillation, RVR
Acute on chronic HFpEF
Dyslipidemia
Obesity
Paroxysmal complete heart block status post dual-chamber pacemaker 2021 ([employer])
Echo 08/2021: EF 55-60, mild concentric LVH, small pericardial effusion
Echo 10/2024: EF 65%, mild MS, mild with gradient 10 mmHg, PASP 30 mmHg
Echo 02/02/2025: EF 60 to 65%, stage II diastolic dysfunction, normal RV size and function
LHC 09/07/21: LAD is on the smaller side and is calcified with diffuse disease and reaches the apex. The second OM is small and has a 40% ostial stenosis. The distal OM 3 inferior branch has an ostial 50% stenosis. RCA has mid 50% stenosis. Given that
this was the area that was positive and the stress test it was decided to proceed with IFR. iFRs of this lesion were serially negative around 0.92 indicating a nonobstructive lesion. Conclusions: moderate nonobstructive coronary atherosclerosis,
normal LV function, mild .
Recommendations:
- He remains in rate controlled atrial fibrillation on review of telemetry overnight
- he had episode of vomiting overnight and there is concern for aspiration, defer treatment to primary service. continue supp O2, wean as able
- Presently off all outpatient antihypertensive medications including Toprol 25 mg twice daily, lisinopril 20 mg twice daily, hydrochlorothiazide 50 mg daily, hydralazine 25 mg twice daily
- HD new this admission. Cr 3.3 on 02/07. 3 L taken off through [facility] 02/06 per son, continue per nephrology
- Vascular surgery following, and ongoing discussions with family regarding goals of care. There is consideration for lower extremity angiogram given PVD requiring left partial fifth ray amputation 02/03/25
- Currently remains on IV heparin while awaiting decision regarding additional procedures. Eventually resume outpatient Xarelto
- Echo this admission with preserved EF
- Continue antibiotics, wound care
- Discussed with nursing. Discussed with family at bedside. Discussed with vascular via TT
HPI: Patient is a pleasant 71-year-old male with a past medical history significant for permanent atrial fibrillation, paroxysmal complete heart block status post dual-chamber pacemaker 2021, hypertension, hyperlipidemia, diabetes mellitus, prior
syncope, nerve stimulator, osteoarthritis who initially presented due to worsening lower extremity infection. Patient was noted to have significant atherosclerosis of bilateral lower extremities. Patient's renal function began to worsen and
patient with significant leukocytosis. Patient and family had reported increasing shortness of breath, decreased oral intake, and nausea. Since admission, patient undergoing treatment of infection with IV antibiotics however, renal function
continued to worsen. Patient underwent implant of dialysis catheter on 02/02/2025 with initiation of hemodialysis. Cardiology consulted due to elevated troponin and elevated BNP. Patient's initial troponin was noted to be 0.5 which is down trended
to 0.35 and 0.315. In discussion with patient and family, he notes some intermittent variable chest discomfort which occasionally occurs with position changes and at rest but no reported chest pain with activity or exertion. Prior to admission,
patient was active and denied chest pain shortness of breath or palpitations with activity or exertion. Additionally, patient's BNP checked on 02/01/2025 was greater than 27,000. Patient is a non-smoker, no alcohol, no illicits. Patient without
significant family history.
Progress Note - Sr. Vendor Management Associate
Subjective
Date of Service: February 07, 2025
reports tired
Objective
Labs:
02/06/25 03:45
02/07/25 05:15
Labs
Hgb 8.8 g/dL (13.0-18.0) L 02/06/25 03:45
Hct 25.4 % (39.0-52.0) L 02/06/25 03:45
Plt Count 234 10^3/uL (130-400) D 02/06/25 03:45
PT 27.8 Sec (11.4-14.6) H 02/03/25 00:54
INR 2.59 02/03/25 00:54
APTT 58.0 Sec (23.4-35.0) H 02/07/25 05:15
Sodium 131 mmol/L (135-145) L 02/07/25 05:15
Potassium 3.9 mmol/L (3.5-5.1) 02/07/25 05:15
BUN 63 mg/dl (9-20) H 02/07/25 05:15
Creatinine 3.3 mg/dL (0.7-1.3) H 02/07/25 05:15
Glucose 296 mg/dl (70-99) H 02/07/25 05:15
Vital Signs and I&O:
Vital Signs
Temp Pulse Resp BP Pulse Ox
98.8 F 88 16 136/73 96
02/07/25 03:10 02/07/25 05:30 02/07/25 05:30 02/07/25 05:30 02/07/25 05:30
Vital Signs
Temp Pulse Resp BP Pulse Ox
98.8 F 88 16 136/73 96
02/07/25 03:10 02/07/25 05:30 02/07/25 05:30 02/07/25 05:30 02/07/25 05:30
Intake & Output
02/05/25 02/06/25 02/07/25 02/08/25
07:59 07:59 07:59 07:59
Intake Total 1563.6 / 1563.6 456 / 456 108 / 108
Output Total 350 / 350 0 / 0
Balance 1213.6 / 1213.6 456 / 456 108 / 108
Physical Exam
Physical Exam
GEN: No distress, awake, lethargic. on supp O2
HEENT: supple, anicteric, mmm, eomi
LUNGS: Few crackles B/L, no wheezes/rales
CV: Irreg, S1/S2, no murmur
ABD: soft, BS+, NT/ND
EXT: No cyanosis, clubbing. 2+ edema of B/L UE and LE
NEURO: Gross non-focal
SKIN: Warm, pink, dry. No rash.
--- NOTE | 2025-02-07 08:35 | W.PN.POD ---
Today's Communication
Today's Communication
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
Assessment / Plan
-
S/P Left partial 5th ray amputation - secondary to Left foot Diabetic foot infection
Sepsis
JESUS
IDDM
neuropathy
PAD
Plan:
The left foot wound was flushed and dressed with silver alginate today. Continue vanco/cefipime per ID. Bone & would cultures pending. 5th ray pathology and proximal clean margin pending. Await vascular plans. Discussed future wound care plans
with son and (telephonically) if vascular status allows for healing. will follow
Subjective
Chief Complaint
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
Subjective
Patient is seen at bedside, awake but somnolent. Son at bedside.
Objective
Temp Pulse Resp BP Pulse Ox
98.8 F 88 16 136/73 96
02/07/25 03:10 02/07/25 05:30 02/07/25 05:30 02/07/25 05:30 02/07/25 05:30
02/06/25 03:45
02/07/25 05:15
Vital Signs and Lab results were reviewed.
Physical Exam
Physical Exam
Left foot with bandages intact, minimal strikethrough on inner bandages. non-palpable pulses, CFT delayed, Packing in place, wound bed is clean, no purulence expressed. Would edges are viable, no necrosis. erythema significantly improved. Dark
coagulated blood in base of wound
--- NOTE | 2025-02-07 08:58 | W.PN.ID1 ---
Date of Service
Date of Service: February 07, 2025
Today's Communication
Continue Vancomycin, cefepime.
Assessment / Plan
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
.spine stimulator incompatible with MRI.
# PAD, left 5th ischemic toe
. s/p CT angiogram
# s/p septic shock
# Leukocytosis improving
# metabolic/Lactic acidosis resolved
# Suspecting pneumonia/aspiration
# JESUS
. HD started 02/02
. Urine eos neg
# DM2 with neuropathy
- Blood cx's neg. Ucx neg.
- Wound cx MRSA
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
OR cx's : MRSA
Bone path pending
- Continue Vancomycin,dosing by level
- Continue cefepime 1g IV q24 (d5 of )for suspecting PNA
- Trend WBC/vitals.
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
Diabetes mellitus type 2
Hypertension
Atrial fibrillation on Xarelto
pacemaker placement
Chronic pain with spinal stimulator, not active
Chronic left leg weakness due to history of back injury during lumbar procedure 2019
Lumbar laminectomy
Chief Complaint
-: Clinical Sepsis and Other (osteo)
Subjective / Review of Systems
Per , patient gagged on metamuclin last night and was coughing violently.
Cough better this am.
Vital Signs / Physical Exam
Vital Signs
Vital Signs
Temp Pulse Resp BP Pulse Ox
98.8 F 88 16 136/73 96
02/07/25 03:10 02/07/25 05:30 02/07/25 05:30 02/07/25 05:30 02/07/25 05:30
Physical Exam
Constitutional: Acutely Ill
Eyes: No Conjunctival Hemorrhage and Sclera Anicteric
Cardiovascular: Irregular Rate and S1/S2
Pulmonary: Non Labored
Gastrointestinal: Soft, Non Tender and Non Distended
Extremities: Edema (improved)
Wound: Other (left foot dressing dry)
Neurological: AO x 3
Lines: HD Cath
Objective Data
Lab Data
Lab Results
02/07/25 05:15
ESR 78 mm/hour (0-20) H 01/28/25 12:23
PT 27.8 Sec (11.4-14.6) H 02/03/25 00:54
INR 2.59 02/03/25 00:54
APTT 58.0 Sec (23.4-35.0) H 02/07/25 05:15
Estimated Creat Clear 22 ml/min 02/07/25 05:15
Lactic Acid 1.7 mmol/L (0.7-2.0) 02/05/25 00:53
Total Bilirubin 1.0 mg/dl (0.2-1.3) 02/04/25 16:14
AST 69 U/L (17-59) H 02/04/25 16:14
ALT 43 U/L (0-50) 02/04/25 16:14
Alkaline Phosphatase 115 U/L (38-126) 02/04/25 16:14
C-Reactive Protein 228.10 mg/L (0.0-10.00) H 01/28/25 12:23
Most recent labs reviewed.
Micro Results:
02/03/25 21:30 Wound Culture - Preliminary
Foot - Left Staph aureus MRSA
Gram Stain - Preliminary
02/03/25 21:30 Tissue Culture - Final
Foot - Left Staph aureus MRSA
Gram Stain - Final
02/03/25 21:30 Anaerobic Culture - Preliminary
Foot - Left Culture pending. Anaerobic cultures are examined after 3
days incubation. Additional information to follow.
02/02/25 13:44 Urine Culture - Final
Urine NO GROWTH
01/29/25 04:07 Blood Culture - Final
Blood/Venous No Growth - Final Report
01/28/25 12:24 Blood Culture - Final
Blood/Venous No Growth - Final Report
01/31/25 09:04 Wound Culture - Final
Foot - Left Staph aureus MRSA
Gram Stain - Final
02/01/25 19:47 Influenza Types A & B (GIFTY) - Final
Nasal Swab Negative for Influenza A & B, NAAT
Negative results must be combined with clinical observations
and patient history.
Nucleic Acid Amplification test (NAAT)performed on the
[employer] platform.
01/30/25 10:04 Wound Culture - Final
Foot - Left Staph aureus MRSA
Gram Stain - Final
01/28/25 17:44 MRSA Screen - Final
Nose No Methicillin Resistant Staphylococcus aureus isolated.
01/28/25 Left foot XRAY: No acute osseous abnormality. Mild soft tissue swelling along the lateral forefoot.
02/01/25 CXR: Hazy increased density over the left lower hemithorax, probably mainly due to a posteriorly layering pleural effusion.
02/03/25 CXR: Parenchymal opacity within the right lower lung and the left mid to lower lung, similar to recent radiograph. Main differential considerations of atelectasis and/or pneumonia.
02/04/25 CT LE: 1. Interval amputation of the phalanges of the left 5th toe and the 5th metatarsal head since the prior exam performed 02/01/2025.
2. Large soft tissue wound distal to the 5th metatarsal with soft tissue emphysema extending deep to the lateral cortex of the 4th metatarsal head.
3. Moderate subcutaneous edema throughout the left lower leg and thigh.
4. Moderate to severe calcific atherosclerotic plaque throughout the left lower extremity.
5. Small to moderate-sized left knee joint effusion.
6. Severe anasarca in the left lateral abdominal wall.
7. Moderate retroperitoneal and extraperitoneal edema in the pelvis.
8. Severe diffuse urinary bladder wall thickening with adjacent perivesical inflammation suggesting ACUTE CYSTITIS. Chronic urinary bladder outlet obstruction is also likely present given severe enlargement of the prostate gland.
9. Mild circumferential wall thickening and fluid distention of the rectum suggesting an acute prostatitis. Rectal tube in place.
Care Review
Plan reviewed with: Physician (Dr. Adkins)
--- NOTE | 2025-02-07 09:12 | PHA.VAN.FU ---
Addendum entered and electronically signed by Saida Manzanares 02/07/25 14:41:
Correction: Random Level: 17.2 - drawn ~17H after dose of 750mg
Original Note:
Vancomycin Assessment / Plan
- Assessment
Hemodialysis Schedule: Other (new start HD for JESUS)
In the past 24 hrs, patient has been: Afebrile
Concomitant Antimicrobials: cefepime
- Assessment - Therapeutic Drug Monitoring
Random Level: 11.3 - drawn ~17H after dose of 750mg
- Dosing Plan
Dosing by Level: Hold off on dosing today
- Monitoring Plan
No level(s) ordered at this time: will redose tomorrow as this is an appropriate pre-HD level
- Follow Up
Pharmacy will continue to follow.
Vancomycin Follow UP
- -
Patient Age: 79
Patient Sex: Male
Vancomycin Day #: 11
Indication: Skin And Soft Tissue
Requesting Provider: Dr. Archer/Dr. Maguire
Pertinent Antimicrobial Allergies:
NKDA
Height / Weight:
Height 5 ft 9 in
Actual Weight 99.393 kg
Pertinent Past Medical History: BMI ~30.5, DM 2
- Vital Signs / Lab Results
Temp Pulse Resp BP Pulse Ox
98.8 F 88 16 136/73 96
02/07/25 03:10 02/07/25 05:30 02/07/25 05:30 02/07/25 05:30 02/07/25 05:30
Lab Results - Hematology
02/05/25 02/06/25
03:41 03:45
WBC 19.5 H 11.3 H
Lab Results - Chemistry
02/04/25 02/05/25 02/06/25
16:14 03:41 03:45
BUN 38 H 60 H Cancelled
Creatinine 2.5 H 3.1 H Cancelled
Estimated Creat Clear 29 23 Cancelled
Albumin 3.0 L
02/06/25 02/07/25
04:47 05:15
BUN 83 H 63 H
Creatinine 4.1 H* 3.3 H
Estimated Creat Clear 18 22
Albumin
02/04/25 02/04/25 02/04/25
06:00 10:33 16:14
Lactic Acid Cancelled 6.6 H* 2.4 H
02/05/25
00:53
Lactic Acid 1.7
Microbiology Results
02/03/25 21:30 Wound Culture - Preliminary
Foot - Left Staph aureus MRSA
Gram Stain - Preliminary
02/03/25 21:30 Tissue Culture - Final
Foot - Left Staph aureus MRSA
Gram Stain - Final
02/03/25 21:30 Anaerobic Culture - Preliminary
Foot - Left Culture pending. Anaerobic cultures are examined after 3
days incubation. Additional information to follow.
Therapeutic Drug Monitoring
Random Vancomycin 17.2 ug/ml 02/07/25 05:15
[2025-02-07] MEDS: METAMUCIL, KONSYL PO (09:26)
[2025-02-07] MEDS: NOVOLOG FLEXPEN SC (09:26)
--- NOTE | 2025-02-07 09:28 | W.PN.HOSP.TC ---
Today's Communication/Plan
-
Adjust insulin
Await vascular surgery input
Assessment / Plan
Assessment / Plan
Gen-awake, alert, NAD
HEENT-NC, AT, anicteric, clear oral mm
Neck-supple
CV-reg, no M, +S1/S2
Lungs-clear B/L
Abd-soft, NT, ND
Ext-mild left upper extremity edema
Musculoskeletal-no cyanosis, clubbing, left foot dressing intact
Skin-warm and dry
Neuro-grossly non-focal
Psych-calm, cooperative
Aspiration pneumonitis/acute hypoxic respiratory failure -had an episode of vomiting last night with hypoxia. Occurred after a dose of Metamucil. Nursing reports pulse ox dropped into the 60% range briefly then recovered. Currently stable on 2 L
nasal cannula oxygen. Speech therapy to assess today. Discussed with nursing.
Acute TME -due to sepsis, shock, critical illness. Remains somewhat confused still in terms of day and night.
Septic shock due to to left fifth metatarsal abscess -possible underlying osteomyelitis. IV vancomycin/cefepime per ID.
Shock resolved. Off vasopressors. Blood cultures negative so far. Wound culture shows MRSA.
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
Leukocytosis improving. Afebrile.
Unable to have MRI due to spinal stimulator not active
Wound culture growing MRSA
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 Podiatry following. Pathology from bone margins pending. Wound culture from the OR shows MRSA.
PAD -CT angiogram done 02/01 shows multifocal atherosclerotic disease throughout the bilateral lower extremities. Diminished flow in the left anterior tibial artery with some apparent distal reconstitution, diminished flow at the distal aspect of the
left peroneal artery at the level of the ankle. Short segment high-grade stenosis of the distal right SFA.
Spoke with Dr. Gonzalez from vascular surgery. He plans to speak with patient and family today regarding goals of care and decision regarding potential revascularization in the setting of acute kidney injury. Obviously there is risk for further
deterioration of renal function and permanent kidney injury requiring long-term dialysis with angiogram. However, without revascularization high risk for limb loss.
Lactic acidosis due to sepsis/shock -lactic acid now normalized.
Differential diagnosis include metformin induced versus worsening sepsis
Metformin discontinued 02/01
MAP has been consistently greater than 65
Acute kidney injury -due to septic shock. Anuric. Gonzalez catheter in place. Etiology of JESUS most likely due to septic shock and medications and less likely due to contrast-induced nephropathy as contrast exposure was on 02/01, creatinine was 3.3
morning of 02/01.
Appreciate nephrology input, dialysis started 02/02
High anion gap metabolic acidosis due to septic shock, lactic acidosis. Metabolic acidosis resolved. Off sodium bicarbonate IV.
Hold metformin, lisinopril, hydrochlorothiazide, trend creatinine, no nephrotoxic drugs or NSAIDs
Ileus -developed nausea and vomiting on 02/03. Abdominal x-ray on 02/03 showed moderate to large amount of gaseous distention of the stomach without dilated loops of bowel otherwise.
Previously required NG tube placement, subsequently removed.
Dysphagia -unknown acuity. Suspect related to critical illness. Evaluated by speech therapy, recommendation for pur�ed diet and thin liquids, aspiration precautions.
LUE edema -Doppler ultrasound negative for DVT.
Peripheral artery disease
Appreciate vascular surgery input
Originally planned for left lower extremity angiogram Sunday 02/04, but will hold due to renal failure
Acute on chronic heart failure with preserved ejection fraction
Cardiology following, continue dialysis as per nephrology
Troponin elevation -suspect acute nonischemic myocardial injury due to septic shock. Troponin trending down.
Permanent atrial fibrillation with rapid ventricular response
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
Continue IV heparin. Was on Xarelto prior to admission.
Hyponatremia -monitor for now. Sodium stable at 131 today. Component of hyperglycemia induced hyponatremia.
Hyperphosphatemia -due to JESUS. Improving.
DM 2 with hyperglycemia -at home he was on insulin degludec 24 units at bedtime, NovoLog sliding scale with meals, metformin.
Hemoglobin A1c 7.1 on 01/13/2025
Hold metformin 1000 mg daily due to JESUS
Currently on Lantus 10 units at bedtime, low resistance NovoLog scale.
Glucose 296 this morning, 293 last night. Can increase Lantus to 15 units at bedtime, increase NovoLog 8 units AC. Give a dose of NPH insulin now.
Nursing reports oral intake has been relatively poor.
Essential hypertension -meds on hold for hypotension, shock.
Constipation -now with frequent loose stools. Fecal management system in place.
Hyperlipidemia -was on lovastatin prior to admission.
Obesity due to excess calories
DVT prophylaxis -IV heparin drip
Full code
PT/OT
updated on the phone. Updated son at the bedside.
Anticipated Discharge: > 48 hours
Subjective/Interval History
-
Date of Service: February 07, 2025
Patient seen and examined. No complaints.
Objective Data
-
Labs:
Laboratory Results
02/07/25 02/07/25 02/07/25
05:15 08:51 12:15
WBC Pending
Hgb Pending
Hct Pending
Plt Count Pending
APTT 58.0 H Pending
Sodium 131 L
Potassium 3.9
Chloride 96 L
Carbon Dioxide 28
BUN 63 H
Creatinine 3.3 H
Glucose 296 H
Calcium 7.6 L
Vital Signs:
Vital Signs
Temp Pulse Resp BP Pulse Ox
98.8 F 88 16 136/73 96
02/07/25 03:10 02/07/25 05:30 02/07/25 05:30 02/07/25 05:30 02/07/25 05:30
I&O
02/06/25 02/07/25 02/08/25
06:59 06:59 06:59
Intake Total 466 / 466 108 / 108
Output Total 0 / 0
Balance 466 / 466 108 / 108
Review of Systems
-
History Source: Patient
All other systems: Reviewed and negative
[2025-02-07] MEDS: NOVOLOG FLEXPEN-LOW RESISTANCE 3 UNITS SC ×2 (10:45→15:20)
--- NOTE | 2025-02-07 10:52 | W.PN.PUL.V3 ---
Today's Communication / Plan
-
.
Wean oxygen.
Incentive spirometry.
Hemodialysis per nephrology.
Vascular surgery following.
Antibiotics.
Pulmonary status stable-pulmonary team will sign off-. Please call with questions
Assessment
-
Patient is a 79-year-old male with previous history of diabetes, hypertension, A-fib on Xarelto, pacemaker placement since presenting to ER for infected fifth metatarsal with purulent drainage with resultant erythema on the dorsal aspect of the
foot progressing to generalized erythema and lymphangitis on the lower extremity to mid thigh over the past 4 days. He was taking oral Cipro course but was likely failing outpatient regiment. Admitted to on 01/28/2025. Podiatry was consulted
and performed a bedside I&D with concern for underlying osteomyelitis. He is placed on IV antibiotics with ID following. Developed worsening acute kidney injury and decreased urine output with worsening metabolic acidosis. HD catheter placed and
hemodialysis initiated on 02/02/2025. Lactic acid was noted as well. He has been hemodynamically stable not on pressors. He is transferred to ICU for worsening profound sepsis 02/02/25.
Severe sepsis, not on pressors
Infected R toe complicated by osteomyelitis and cellulitis of the lower extremity
Status post fifth ray amputation 02/03/[id number]. Brinkley.
Hypoxemic respiratory failure: Suspected aspiration event.
Projectile vomiting with abdominal distention 02/03/2025
Suspected ileus
Leukocytosis
Thrombocytosis
Anion gap severe metabolic acidosis
Acute kidney injury with oliguria now on HD 02/02/25
Hyperkalemia
Lactic acidosis
TME due to above
Conditions present prior to admission:
PAF on Xarelto
Atypical syncope
Presence of cardiac pacemaker
Essential (primary) hypertension
Obesity
History of hepatitis r/t mononucleosis 1989
Diverticulosis/Colon polyps
IDDM
HLD
Spinal stenosis in cervical region s/p nerve stimulator implant
Herniated disc, cervical
Lumbar Laminectomy
Bilateral Arthroscopy Knees
Plan
Respiratory status relatively stable
Continue supplemental oxygen as needed--96-97% saturation on room air
Incentive spirometry
Nebulizers if needed-currently not bronchospastic
Eventual radiographic follow-up
Septic shock as solved-off pressors now
Monitor leukocytosis and temperature curve
Infectious disease following-correspondence reviewed -continue cefepime and Vibramycin
Continue antibiotics per infectious disease
Wound cultures with MRSA
Podiatry following-correspondence reviewed-status post left partial fifth ray amputation
Vascular surgery following-reviewed case with them-possible revascularization
Monitor renal function
Nephrology following
Hemodialysis as needed
Cardiology following-correspondence reviewed
Atrial fibrillation rate control
Heparin drip continues
Follow hemoglobin
Transfuse as needed
Abdominal distention improved
Nasogastric tube discontinued 02/05/2025
Speech therapy evaluation ongoing
Modified barium swallow
Monitor blood sugar
Insulin supplementation as needed
DVT prophylaxis-on heparin
GI prophylaxis
Nutrition
Early mobilization.
Respiratory status is currently stable-pulmonary We'll sign off- Please call with questions
Dr. Cheema updated daughter and in detail 02/03/2025, 02/04/2025, 02/05/2025 extensively.
Diagnostic Data
Chest X-Ray: 02/02/25- Placement of a right internal jugular dual-lumen dialysis catheter with the tip in the SVC. Stable left cardiac conduction device and spinal stimulator leads. Low lung volumes. Mild bibasilar atelectasis. Possible small layering
left pleural fluid. No pneumothorax. Stable enlargement of the cardiac silhouette.
CT Scan: AP 02/01/25- Multifocal atherosclerosis throughout the bilateral lower extremities. Diminished flow in the left anterior tibial artery with some apparent distal reconstitution, and diminished flow at the distal aspect of the left peroneal
artery at the level of the ankle. Short segment high-grade stenosis of the distal right SFA. Diminutive right calf vessels with multifocal stenoses. Small bilateral pleural effusions. Urinary bladder wall thickening with inflammatory fat stranding.
Recommend correlation with a urinalysis for acute cystitis.
Echo: 10/02/24- Normal left ventricular size and systolic function. Mild concentric left ventricular hypertrophy. No regional wall motion abnormalities are seen. LV ejection fraction is 60-65% by volumetric assessment. Thickened mitral valve leaflets
with mild mitral stenosis. Peak/mean gradients across the mitral valve are 11/4 mmHg, respectively. Trace mitral regurgitation. Mitral annular calcification. Thickened and calcified aortic valve with mild aortic stenosis. Peak/mean gradients across
the aortic valve are 18/10 mmHg, respectively. The aortic regurgitation. Tricuspid valve opens normally with trace tricuspid regurgitation. Estimated pulmonary artery pressure of 30 mmHg. Compared to prior study 09/22/2021 there is mild mild mitral
valve stenosis. There is now mild aortic valve stenosis. There is mild aortic valve insufficiency.
Reports and relevant images were personally reviewed.
Subjective Data
-
Date of Service:
Date of Service: February 07, 2025
Chief Complaint: Pulmonary Follow Up and Dyspnea Follow Up
Subjective:
No complaints of worsening shortness of breath, chest pain, productive cough, pleurisy
Review of Systems
General: Other ( per HPI)
Objective Data
Data Reviewed
Vital Signs / I&O:
Vital Signs
Temp Pulse Resp BP Pulse Ox
98.8 F 88 16 136/73 96
02/07/25 03:10 02/07/25 05:30 02/07/25 05:30 02/07/25 05:30 02/07/25 05:30
Intake and Output
02/06/25 02/07/25 02/08/25
06:59 06:59 06:59
Intake Total 466 / 466 108 / 108
Output Total 0 / 0
Balance 466 / 466 108 / 108
SaO2: 96
Nasal Cannula flow liters per minute: 2
Physical Exam
General: Respiratory Distress (n) and Comfortable
HEENT: Normocephalic, Anicteric and Moist Mucous Membranes
Cardiovascular: Regular Rhythm and Murmur
Respiratory: Crackles (Basilar), Rhonchi (n), Non-Labored Respirations, Accessory Resp Muscle Use (n) and Stridor (n)
GI: Soft, Non Distended and Non Tender
Neurology: Awake, Alert and No Motor Deficits
Skin: Warm, Good Color, Cyanosis (n) and Jaundice (n)
Labs/Micro/Reports
Lab Data
02/07/25 05:15
Laboratory Results
02/07/25
05:15
APTT 58.0 H
Microbiology
02/03/25 21:30 Foot - Left Wound Culture - Preliminary
Staph aureus MRSA
02/03/25 21:30 Foot - Left Gram Stain - Preliminary
02/03/25 21:30 Foot - Left Tissue Culture - Final
Staph aureus MRSA
02/03/25 21:30 Foot - Left Gram Stain - Final
02/03/25 21:30 Foot - Left Anaerobic Culture - Preliminary
Culture pending. Anaerobic cultures are examined after 3
days incubation. Additional information to follow.
--- NOTE | 2025-02-07 10:52 | CM ---
Addendum entered by Melody Brownlee 02/07/25 14:54:
Referral started to [facility], family requested [place], [facility] aware and in agreement. Family requested tentatively ,TH, Sat mid morning. Referral faxed to . Awaiting response from [facility] and from SNF options.
Addendum entered by Melody Brownlee 02/07/25 13:43:
CM sent referrals for SNF options as patient requested and TT sent to physician for clarification about HD planning.
Original Note:
Patient seen at bedside in IMU with patient son and spoke with patient via phone. [facility] Patient family requested referrals for Dr. Daniels
and stated that patient was previously not on HD and now is going to be on HD moving forward. Patient would like to see if patient could go out to HD community center and go to the best SNF possible and he has been at some of the above
facilities. Patient does not currently have community HD center. CM will speak with physician and review options. CM will continue to follow for discharge planning needs.
Plan; SNF; start HD community referrals
[2025-02-07 10:54] LABS: Glucose - Point of Care 294 mg/dl (70-99)
[2025-02-07] MEDS: SENOKOT-S 2 TABLET PO (11:31)
[2025-02-07] MEDS: LIDOCAINE 4% PATCH 1 PATCH TOPICAL (11:31)
[2025-02-07] MEDS: NOVOLIN N vial 0.1 UNITS SC (11:32)
--- NOTE | 2025-02-07 12:30 | W.PN.NEPH.PH ---
Today's Communication / Plan
-
HD tomorrow
Assessment/Plan
-
IMP:
TME
Septic shock
Lactic acidosis
Sepsis 2/2 to Diabetic left foot cellulitis w/ lymphangitis
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
Acute kidney injury-baseline cr 0.9-1.1
Peripheral artery disease
hyponatremia
IDDM 2
Essential hypertension
Constipation
A-fib�permanent
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
HLD
Obesity due to excess calories
Plan:
serologies unremarkable
HD tomorrow
plan for temp to tunneled HD [facility] next week
shift to MWF schedule HD next week if possible
d/w and son
From previous discussion They are concerned that he will have a difficult time processing negative information and would like to be the ones to relay clinical information to him if possible (short of patient asking a direct question regarding
prognosis)
-
-
Date of Service: February 07, 2025
CC / HPI / ROS
-
Chief Complaint:
JESUS
History of Present Illness:
little urine output
JESUS/HD tolerated HD yesterday
BP stable
Na low 131
some po intake
Review of Systems:
confused
on O2 4lit
no cp or sob noted
Labs
-
Labs:
Sodium 131 mmol/L (135-145) L 02/07/25 05:15
Potassium 3.9 mmol/L (3.5-5.1) 02/07/25 05:15
Chloride 96 mmol/L (98-107) L 02/07/25 05:15
Carbon Dioxide 28 mmol/L (22-30) 02/07/25 05:15
BUN 63 mg/dl (9-20) H 02/07/25 05:15
Creatinine 3.3 mg/dL (0.7-1.3) H 02/07/25 05:15
eGFR 18.39 02/07/25 05:15
Glucose 296 mg/dl (70-99) H 02/07/25 05:15
Calcium 7.6 mg/dl (8.4-10.2) L 02/07/25 05:15
Phosphorus 4.7 mg/dl (2.5-4.5) H 02/04/25 16:14
Apd-U-Oyftpvvzbbu Pept > 01568 pg/ml 02/01/25 20:16
Albumin 3.0 g/dl (3.5-5.0) L 02/04/25 16:14
Physical Exam
-
Vital Signs:
Vital Signs
Temp Pulse Resp BP Pulse Ox
98.8 F 88 16 136/73 96
02/07/25 03:10 02/07/25 05:30 02/07/25 05:30 02/07/25 05:30 02/07/25 10:52
Cardiovascular:: Regular rate and rhythm
Respiratory:: Bilateral: Coarse
Lung Excursion:: Normal
Abdomen:: Nontender and Soft
Bowel Sounds:: Normal
Extremity Edema:: None: Bilateral:
--- NOTE | 2025-02-07 13:40 | W.PN.UPDATE ---
Update Note
Progress Note Update
I had conversations with nephrology and the hospitalist team regarding Mr. Daniels.
I had a long conversation with Mr. Daniels as well as his via telephone and his son who is at the bedside. We reviewed the his hospital course as well as the current issues surrounding acute kidney injury, hemodialysis and limb threatening
ischemia with foot infection. I explained that this is a challenging situation as arteriogram with possible intervention or simply as a diagnostic tool for revascularization would require contrast administration. I explained to them that the
arteriogram would need to be done for limb preservation purposes so that we could determine his options for revascularization. I also explained that contrast administration could negatively impact his kidneys if there was any chance of recovery
which would mean permanent dialysis. I also explained that he may be on permanent hemodialysis regardless of the contrast administration as complete renal recovery (and the timing of the recovery) would be difficult to predict. I explained that
without revascularization he would be at very high risk for ongoing infection, limb ischemia and progression of his wound which ultimately may result in major amputation. I explained the options would be to proceed with lower extremity arteriogram
with minimal dilute contrast knowing the risks to his kidneys or avoid the arteriogram and risk limb loss. I do understand this is an extraordinarily difficult decision to make.
We could move ahead with the arteriogram Monday if the patient and family are in agreement and if the medical team/nephrology is in agreement. They will have the weekend to continue discussions and weigh these options. I will [place] back over the
weekend to continue discussions
Mathew Gonzalez III, MD
Vascular Surgery
[facility]
[2025-02-07 14:34] LABS: Hematocrit 27.9 % (39.0-52.0); Hemoglobin 9.7 g/dL (13.0-18.0); Mean Corp Hgb Conc. 34.8 g/dL (33.0-37.0); Mean Corpuscular Volume 86.6 fL (80.0-94.0); Nucleated Red Blood Cells % 0 % (-); Platelet Count 206 10^3/uL (130-400); Red Cell Dist. Width 14.2 % (11.5-14.5)
[2025-02-07 14:45] LABS: APTT 61.9 Sec (23.4-35.0)
[2025-02-07 14:52] LABS: Glucose - Point of Care 251 mg/dl (70-99)
--- NOTE | 2025-02-07 15:04 | PTOTSP ---
ST Follow-Up
Based on this limited re-evaluation, pt currently presents with clinical symptoms of at least mild oropharyngeal dysphagia characterized by anterior loss of liquids due to reduced labial seal around edge of cup as well as seldom wet vocal
quality/coughing during ingestion of liquids as well as s/p ingestion of liquids that could be an indication of retrograde flow from the esophagus, all of which can be attributed to pt's recent intubation and overall deconditioning from his
prolonged hospital stay and multiple medical comorbidities.
Pt is also exhibiting clinical signs of esophageal dysfunction including but not limited to fairly notable epigastric pain after only a dozen or so sips of liquids, severe burning in the chest s/p ingestion of only two bites of applesauce, a recent
increase in belching s/p ingestion of liquids since pt was extubated, persistent nausea, and ongoing episodes of vomiting. Pt's esophageal symptoms are of unknown origin as pt has no documented esophageal hx including no hx of GERD; however, pt
reportedly had a recent ileus that may be contributing to his current presentation.
Recommendations:
- NPO - IV medications only.
- ARHP including ice chips and sips of water as much as pt can tolerate, after oral care.
- Aspiration & reflux precautions: HOB upright during PO intake and for 60 minutes after PO intake; oral care QID; small sips; slow intake rate.
- Consider consultation to GI; consider reimaging to see if pt still has an ileus.
- 3D ANIMATOR to f/u re: re-assessing candidacy/appropriateness for reinitiating PO diet and to determine if pt would benefit from an instrumental swallow study.
--- NOTE | 2025-02-07 15:30 | PTCARENOTE ---
Spoke with nurse regarding Temp to tunnelled procedure on Monday. Unknown at this time when HD is planned for Monday and Dr Gonzalez's note regarding possible vascular arteriogram Monday. Will check Monday AM for status of dialysis and possible
arteriogram.
[2025-02-07] MEDS: NSS (PRESERVATIVE FREE) 10 ML IV ×2 (15:37→22:02)
[2025-02-07] MEDS: PROTONIX IV 40 MG IV ×2 (15:38→22:02)
--- NOTE | 2025-02-07 15:57 | CON.GI ---
Consultation
-
Date/Time Consultation Requested: 02/07/25 1:55pm
Date/Time Consultation Performed: 02/07/25 3:57pm
Requesting Provider: Jed Bravo
Performing Provider: Mukesh Jacobo
Reason for Consultation: n/v
Medical History
Chief Complaint / HPI
Chief Complaint: n/v
History of Present Illness:
Patient is a 79-year-old male who presents with left foot infection, severe sepsis requiring pressors, acute renal failure requiring dialysis, bedside I&D 01/31 and L partial 5th ray amputation 02/03. During his hospitalization he developed progressive
belching and then vomiting. His x-ray on February 03 showed moderate/large amount gastric distention with nondilated loops of small bowel. He required NG tube placement with drainage significant volume of gastric fluid which subsequently decreased in
the following days. He removed the tube and then was initiated on a diet. His family reports that yesterday morning he ate several bites of pancake and pur�ed vanessa and Ensure. He did not have problems early in the day, but then in the evening
had mashed potatoes, took Metamucil, as well as several pills and then vomited. He was evaluated by speech therapy today and complained of chest burning with 2 bites of applesauce. He is recommended to go back to n.p.o. with occasional sips of
water. GI consult was recommended. Pt did not have any problems eating prior to admission. He took one ibuprofen tablet due to his foot pain. No prior EGD
Past Medical History
Past Medical History: Arrhythmias (Afib, paroxysmal complete heart block s/p pacer), HTN and NIDDM
Past Surgical History: Cardiac (Pacemaker)
Social History
Tobacco: Non-Smoker
Alcohol: None
Family History
Family History: Reviewed & Not Pertinent
Allergies / Home Medications
Allergy/AdvReac Type Severity Reaction Status Date / Time
No Known Allergies Allergy Verified 09/21/21 09:39
�Medication �Instructions �Recorded
insulin aspart U-100 100 unit/mL 4 - 14 units SC AC Diabetes 09/07/21
subcutaneous solution (Novolog
U-100 Insulin aspart)
lovastatin 40 mg tablet 40 mg PO HS High cholesterol 09/07/21
hydrochlorothiazide 50 mg tablet 50 mg PO DAILY Blood Pressure 09/21/21
lisinopril 20 mg tablet 20 mg PO BID Blood pressure 09/21/21
metformin 1,000 mg tablet 1,000 mg PO BID@0800,1700 Diabetes 12/02/21
##0
Lactobacil.acidophilus-Bifido.animalis 1 cap PO DAILY Gastrointestinal 01/28/25
5 billion cell sprinkle capsule Issue
(Probiotic)
hydralazine 25 mg tablet 25 mg PO BID Blood Pressure 01/28/25
insulin degludec 100 unit/mL (3 24 unit SC HS Diabetes 01/28/25
mL) subcutaneous pen
metoprolol succinate 25 mg 25 mg PO BID Blood Pressure 01/28/25
tablet,extended release 24 hr
psyllium 1 packet PO BID Constipation 01/28/25
rivaroxaban 20 mg tablet (Xarelto) 20 mg PO QPM Blood clot 01/28/25
prevention/tx
Review of Systems
-
All other systems: A 12 pt ROS was Negative except as stated above in HPI
Vital Signs
Temp Pulse Resp BP Pulse Ox
98.8 F 88 16 136/73 96
02/07/25 03:10 02/07/25 05:30 02/07/25 05:30 02/07/25 05:30 02/07/25 10:52
Physical Exam
Exam
General: No Apparent Distress
HEENT: Normocephalic and Atraumatic
Respiratory: Non Labored Respirations
GI: Soft, Non Tender, Non Distended and Other (bowel sounds present, but hypoactive)
Skin: Warm and Dry
Results
WBC 12.4 10^3/uL (4.8-10.8) H 02/07/25 14:21
Hgb 9.7 g/dL (13.0-18.0) L 02/07/25 14:21
Hct 27.9 % (39.0-52.0) L 02/07/25 14:21
MCV 86.6 fL (80.0-94.0) 02/07/25 14:21
Plt Count 206 10^3/uL (130-400) 02/07/25 14:21
Absolute Neuts (auto) 10.9 10^3/uL (1.4-6.5) H 02/07/25 14:21
PT 27.8 Sec (11.4-14.6) H 02/03/25 00:54
INR 2.59 02/03/25 00:54
APTT 61.9 Sec (23.4-35.0) H 02/07/25 14:21
Sodium 131 mmol/L (135-145) L 02/07/25 05:15
Potassium 3.9 mmol/L (3.5-5.1) 02/07/25 05:15
Chloride 96 mmol/L (98-107) L 02/07/25 05:15
Carbon Dioxide 28 mmol/L (22-30) 02/07/25 05:15
BUN 63 mg/dl (9-20) H 02/07/25 05:15
Creatinine 3.3 mg/dL (0.7-1.3) H 02/07/25 05:15
Calcium 7.6 mg/dl (8.4-10.2) L 02/07/25 05:15
Total Bilirubin 1.0 mg/dl (0.2-1.3) 02/04/25 16:14
AST 69 U/L (17-59) H 02/04/25 16:14
ALT 43 U/L (0-50) 02/04/25 16:14
Alkaline Phosphatase 115 U/L (38-126) 02/04/25 16:14
Hep Bs Antibody Negative 02/02/25 06:03
Hep B Core Total Ab Negative (Negative) 02/02/25 06:03
Hepatitis C Antibody Negative (Negative) 02/02/25 06:03
Diagnostic Image Results:
Prior GI Procedures:
EGD:
Colonoscopy:
Assessment / Plan
-
Summary: 79yo male admitted with sepsis due to L foot infection requiring I&D 01/31 and amputation 5th digit 02/03, ARF requiring dialysis, transfer to ICU 02/02 due to severe sepsis requiring pressors, n/v requiring NGT placement 02/03 AXR showed
moderate/large amount of gaseous distention of stomach, no other dilated loops bowel. NGT drained significant gastric fluid then pt removed after couple days. Tried on diet but eating minimal amounts. Speech eval noted inability to tolerate more
than couple bites puree
Impression:
GOO vs ileus.
Possible stress ulcers due to severe sepsis
L foot infection
ARF/HD
Afib on xarelto OP
Paroxysmal complete heart block s/p pacer
Recommendations:
Increase IV protonix to BID to empiriclly treat for stress ulcer possibly causing GOO
Check obstruction series to assess GOO vs ileus
He is passing flatus, has hypoactive BS
Continue f/u with speech to see if swallowing improves/able to resume diet
If not, consider EGD. Would like to avoid anesthesia/hypotension if not necessary
-
-
Thank you for consultation and allowing me to participate in the patient's care. Please call the change consultant GI physician during the after hours with any questions or concerns.
--- NOTE | 2025-02-07 17:01 | PTCARENOTE ---
See nursing assessment and flowshett. pt lethargic but awakens to voice. seen by speech for coughing with oral intake and npo recommended by speech. heparin gtt infusing and dose adjusted per protocol. pt c/o discomfort with swallowing in throat and
esophagus. gi consulted . iv protonix given.
[2025-02-07] MEDS: STERILE WATER FOR INJECTION 10 ML IV (17:32)
[2025-02-07] MEDS: MAXIPIME 1000 MG IV (17:32)
[2025-02-07] MEDS: HEPARIN 25000 UNITS/250 ML IV (17:33)
[2025-02-07] MEDS: NOVOLOG FLEXPEN-LOW RESISTANCE 2 UNITS SC (17:41)
[2025-02-07 17:52] LABS: Glucose - Point of Care 225 mg/dl (70-99)
--- NOTE | 2025-02-07 19:46 | PTCARENOTE ---
pt incontinent of mod amt loose black/green stool. hemetest positive. discussed with hospitalist and heparin drip stopped per order.
[2025-02-07] MEDS: LANTUS 0.15 UNITS SC (22:02)
[2025-02-07] MEDS: REMOVE LIDOCAINE PATCH 1 PATCH REMOVE (22:02)
[2025-02-07] MEDS: SENOKOT-S PO (22:03)
[2025-02-07 22:15] LABS: Glucose - Point of Care 196 mg/dl (70-99)
[2025-02-07] MEDS: DILAUDID 0.5 MG IV (22:30)
[2025-02-07 23:05] LABS: APTT 34.1 Sec (23.4-35.0)
[2025-02-08] VITALS (26 sets, daily range): BP systolic 104–133; BP diastolic 47–95; BMI 32.4
[2025-02-08 00:05] LABS: Glucose - Point of Care 198 mg/dl (70-99)
--- NOTE | 2025-02-08 00:18 | PTCARENOTE ---
Assumed care of pt from dayshift RN. Pt ox3, flat, drowsy, and forgetful at times. afib on the monitor, V-paced at times, occasional PVCs. SpO2 97% on 2L NC. Vital signs and assessment as documented. Unable to verify vital signs prior to 1900.
Hygiene completed including CHG wipes and complete bed change. DOMENIC medications administered as well as PRN IV Dilaudid for 9/10 aching pain in his lower back and upper abdomen (see MAR). Pt is currently asleep in bed with call cervantes in reach.
[2025-02-08] MEDS: NOVOLOG FLEXPEN 8 UNITS SC ×2 (00:55→05:52)
[2025-02-08] MEDS: NOVOLOG FLEXPEN-LOW RESISTANCE 1 UNITS SC ×3 (00:55→17:53)
[2025-02-08 05:55] LABS: Glucose - Point of Care 164 mg/dl (70-99)
[2025-02-08 06:03] LABS: Hematocrit 27.3 % (39.0-52.0); Hemoglobin 9.4 g/dL (13.0-18.0); Mean Corp Hgb Conc. 34.4 g/dL (33.0-37.0); Mean Corpuscular Volume 87.8 fL (80.0-94.0); Platelet Count 176 10^3/uL (130-400); Red Cell Dist. Width 14.4 % (11.5-14.5)
[2025-02-08 06:27] LABS: Blood Urea Nitrogen 73 mg/dl (9-20); Calcium 8.1 mg/dl (8.4-10.2); Carbon Dioxide 31 mmol/L (22-30); Chloride 98 mmol/L (98-107); Estimated Creatinine Clearance 19 ml/min; Glucose 152 mg/dl (70-99); Potassium 4.0 mmol/L (3.5-5.1); Sodium 135 mmol/L (135-145); eGFR 15.52
[2025-02-08] MEDS: LIDOCAINE 4% PATCH 1 PATCH TOPICAL (07:34)
[2025-02-08] MEDS: NSS (PRESERVATIVE FREE) 10 ML IV ×2 (07:34→21:04)
[2025-02-08] MEDS: PROTONIX IV 40 MG IV ×2 (07:35→21:04)
--- NOTE | 2025-02-08 08:29 | W.PN.HOSP.TC ---
Today's Communication/Plan
-
Continue antibiotics
Continue dialysis
Monitor hemoglobin
IV Protonix
Assessment / Plan
Assessment / Plan
Gen-awake, alert, NAD
HEENT-NC, AT, anicteric, clear oral mm
Neck-supple
CV-reg, no M, +S1/S2
Lungs-clear B/L
Abd-soft, NT, ND
Ext-mild left upper extremity edema
Musculoskeletal-no cyanosis, clubbing, left foot dressing intact
Skin-warm and dry
Neuro-grossly non-focal
Psych-calm, cooperative
Aspiration pneumonitis/acute hypoxic respiratory failure -triggered by vomiting, possibly triggered by ileus. Oxygenation stable currently on 2 L nasal cannula.
Acute TME -due to sepsis, shock, critical illness. Mental status overall improving.
Septic shock - due to to left fifth metatarsal abscess, acute osteomyelitis. IV vancomycin/cefepime per ID.
Shock resolved. Off vasopressors. Blood cultures negative so far. Wound culture shows MRSA.
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
Leukocytosis improving. Afebrile.
Unable to have MRI due to spinal stimulator not active
Wound culture growing MRSA
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 Podiatry following. Pathology from bone margins pending. Wound culture from the OR shows MRSA.
PAD -CT angiogram done 02/01 shows multifocal atherosclerotic disease throughout the bilateral lower extremities. Diminished flow in the left anterior tibial artery with some apparent distal reconstitution, diminished flow at the distal aspect of the
left peroneal artery at the level of the ankle. Short segment high-grade stenosis of the distal right SFA.
Vascular surgery having ongoing discussions with family regarding goals of care and decision for left lower extremity revascularization with potential risk for further renal deterioration.
Possibly will have angiogram next week.
Lactic acidosis due to sepsis/shock -lactic acid now normalized.
Differential diagnosis include metformin induced versus worsening sepsis
Metformin discontinued 02/01
MAP has been consistently greater than 65
Acute kidney injury -due to septic shock. Anuric. Gonzalez catheter in place. Etiology of JESUS most likely due to septic shock and medications and less likely due to contrast-induced nephropathy as contrast exposure was on 02/01, creatinine was 3.3
morning of 02/01.
Appreciate nephrology input, dialysis started 02/02
High anion gap metabolic acidosis due to septic shock, lactic acidosis. Metabolic acidosis resolved. Off sodium bicarbonate IV.
Hold metformin, lisinopril, hydrochlorothiazide, trend creatinine, no nephrotoxic drugs or NSAIDs
Ileus -developed nausea and vomiting on 02/03. Abdominal x-ray on 02/03 showed moderate to large amount of gaseous distention of the stomach without dilated loops of bowel otherwise.
Previously required NG tube placement, subsequently removed. Currently n.p.o. given suspected ileus, cannot rule out gastric outlet obstruction. GI following. Abdominal x-ray done 02/07 shows air throughout the small bowel, few loops borderline
prominent, nonspecific air-fluid levels. No free air. Clinically doubt obstruction.
Acute GI bleed -exacerbated by anticoagulation with IV heparin. Last bowel movement 02/07, blood-tinged and burgundy. Anticoagulation now on hold. GI following. Continue Protonix IV twice daily. No urgent need for endoscopy currently. Hemoglobin
relatively stable today, 9.4.
Acute blood loss anemia -due to GI bleed as above. Hemoglobin stable at 9.4 today. Monitor closely. Admission hemoglobin was 11.6. May have baseline chronic anemia of unclear etiology.
Dysphagia -unknown acuity. Suspect related to critical illness. Evaluated by speech therapy, recommendation for pur�ed diet and thin liquids, aspiration precautions.
LUE edema -Doppler ultrasound negative for DVT.
Acute on chronic heart failure with preserved ejection fraction
Cardiology following, continue dialysis as per nephrology
Troponin elevation -suspect acute nonischemic myocardial injury due to septic shock. Troponin trending down.
Permanent atrial fibrillation with rapid ventricular response
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
Hold anticoagulation for acute GI bleed. Was on Xarelto prior to admission.
Hyponatremia -resolved.
Hyperphosphatemia -due to JESUS. Improving.
DM 2 with hyperglycemia -at home he was on insulin degludec 24 units at bedtime, NovoLog sliding scale with meals, metformin.
Hemoglobin A1c 7.1 on 01/13/2025
Hold metformin 1000 mg daily due to JESUS
Currently on Lantus 15 units at bedtime, change aspart to 6 units every 6 hours [id number] while NPO. Monitor closely for hypoglycemia.
Glucose 152 this morning, 198 last night.
Essential hypertension -meds on hold for hypotension, shock.
Constipation -now with frequent loose stools. Fecal management system in place.
Hyperlipidemia -was on lovastatin prior to admission.
Obesity due to excess calories
DVT prophylaxis -SCDs ordered.
Full code
PT/OT -Eventual SNF when medically stable.
updated on the phone. All questions answered.
Anticipated Discharge: > 48 hours
Subjective/Interval History
-
Date of Service: February 08, 2025
Patient seen and examined. No complaints. Denies pain, nausea or vomiting. Not feeling hungry.
Objective Data
-
Labs:
Laboratory Results
02/07/25 02/08/25
22:40 05:49
WBC 13.5 H
Hgb 9.4 L
Hct 27.3 L
Plt Count 176
APTT 34.1
Sodium 135
Potassium 4.0
Chloride 98
Carbon Dioxide 31 H
BUN 73 H
Creatinine 3.8 H
Glucose 152 H
Calcium 8.1 L
Vital Signs:
Vital Signs
Temp Pulse Resp BP Pulse Ox
98.5 F 82 12 113/70 97
02/08/25 03:02 02/08/25 00:00 02/08/25 00:00 02/08/25 00:00 02/08/25 00:00
I&O
02/07/25 02/08/25 02/09/25
06:59 06:59 06:59
Intake Total 108 / 108 0 / 0
Balance 108 / 108 0 / 0
Review of Systems
-
History Source: Patient
All other systems: Reviewed and negative
[2025-02-08] MEDS: FLEXBUMIN 25% FOR HEMODIALYSIS 12.5 GRAMS IV ×2 (08:50→10:09)
[2025-02-08] MEDS: MANNITOL 25% 12.5 GRAMS IV ×2 (08:58→10:10)
[2025-02-08] MEDS: RETACRIT 6000 UNITS IV (08:59)
--- NOTE | 2025-02-08 09:29 | W.PN.ID1 ---
Date of Service
Date of Service: February 08, 2025
Today's Communication
Continue Vanco
Tomorrow last dose of cefepime
Assessment / Plan
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
.spine stimulator incompatible with MRI.
# PAD, left 5th ischemic toe
. s/p CT angiogram
# s/p septic shock
# Leukocytosis overall improving
# Suspecting pneumonia/aspiration
# Ileus
# JESUS
. HD started 02/02
. Urine eos neg
# DM2 with neuropathy
- Blood cx's neg. Ucx neg.
- Wound cx MRSA
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
OR cx's : MRSA
Bone path pending
- Continue Vancomycin,dosing by level
- Continue cefepime 1g IV q24 (d6 of 7)for suspecting PNA
- Trend WBC/vitals.
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
Diabetes mellitus type 2
Hypertension
Atrial fibrillation on Xarelto
pacemaker placement
Chronic pain with spinal stimulator, not active
Chronic left leg weakness due to history of back injury during lumbar procedure 2019
Lumbar laminectomy
Chief Complaint
-: Clinical Sepsis and Other (osteo)
Subjective / Review of Systems
Receiving dialysis.
Comfortable at this time.
Vital Signs / Physical Exam
Vital Signs
Vital Signs
Temp Pulse Resp BP Pulse Ox
97.6 F 82 12 113/70 97
02/08/25 08:00 02/08/25 00:00 02/08/25 00:00 02/08/25 00:00 02/08/25 00:00
Physical Exam
Constitutional: No Acute Distress
Eyes: No Conjunctival Hemorrhage and Sclera Anicteric
Cardiovascular: Regular Rate and S1/S2
Pulmonary: Clear (anteriorly)
Gastrointestinal: Soft, Non Tender, Non Distended and Normal Bowel Sounds
Extremities: Negative Edema
Wound: Other (left foot dressing dry)
Lines: HD Cath
Objective Data
Lab Data
Lab Results
02/08/25 05:49
02/08/25 05:49
ESR 78 mm/hour (0-20) H 01/28/25 12:23
PT 27.8 Sec (11.4-14.6) H 02/03/25 00:54
INR 2.59 02/03/25 00:54
APTT 34.1 Sec (23.4-35.0) 02/07/25 22:40
Estimated Creat Clear 19 ml/min 02/08/25 05:49
Lactic Acid 1.7 mmol/L (0.7-2.0) 02/05/25 00:53
Total Bilirubin 1.0 mg/dl (0.2-1.3) 02/04/25 16:14
AST 69 U/L (17-59) H 02/04/25 16:14
ALT 43 U/L (0-50) 02/04/25 16:14
Alkaline Phosphatase 115 U/L (38-126) 02/04/25 16:14
C-Reactive Protein 228.10 mg/L (0.0-10.00) H 01/28/25 12:23
Most recent labs reviewed.
Micro Results:
02/03/25 21:30 Anaerobic Culture - Preliminary
Foot - Left Culture pending. Anaerobic cultures are examined after 3
days incubation. Additional information to follow.
02/03/25 21:30 Wound Culture - Preliminary
Foot - Left Staph aureus MRSA
Gram Stain - Preliminary
02/03/25 21:30 Tissue Culture - Final
Foot - Left Staph aureus MRSA
Gram Stain - Final
02/02/25 13:44 Urine Culture - Final
Urine NO GROWTH
01/29/25 04:07 Blood Culture - Final
Blood/Venous No Growth - Final Report
01/28/25 12:24 Blood Culture - Final
Blood/Venous No Growth - Final Report
01/31/25 09:04 Wound Culture - Final
Foot - Left Staph aureus MRSA
Gram Stain - Final
02/01/25 19:47 Influenza Types A & B (GIFTY) - Final
Nasal Swab Negative for Influenza A & B, NAAT
Negative results must be combined with clinical observations
and patient history.
Nucleic Acid Amplification test (NAAT)performed on the
[employer] platform.
01/30/25 10:04 Wound Culture - Final
Foot - Left Staph aureus MRSA
Gram Stain - Final
01/28/25 17:44 MRSA Screen - Final
Nose No Methicillin Resistant Staphylococcus aureus isolated.
01/28/25 Left foot XRAY: No acute osseous abnormality. Mild soft tissue swelling along the lateral forefoot.
02/01/25 CXR: Hazy increased density over the left lower hemithorax, probably mainly due to a posteriorly layering pleural effusion.
02/03/25 CXR: Parenchymal opacity within the right lower lung and the left mid to lower lung, similar to recent radiograph. Main differential considerations of atelectasis and/or pneumonia.
02/04/25 CT LE: 1. Interval amputation of the phalanges of the left 5th toe and the 5th metatarsal head since the prior exam performed 02/01/2025.
2. Large soft tissue wound distal to the 5th metatarsal with soft tissue emphysema extending deep to the lateral cortex of the 4th metatarsal head.
3. Moderate subcutaneous edema throughout the left lower leg and thigh.
4. Moderate to severe calcific atherosclerotic plaque throughout the left lower extremity.
5. Small to moderate-sized left knee joint effusion.
6. Severe anasarca in the left lateral abdominal wall.
7. Moderate retroperitoneal and extraperitoneal edema in the pelvis.
8. Severe diffuse urinary bladder wall thickening with adjacent perivesical inflammation suggesting ACUTE CYSTITIS. Chronic urinary bladder outlet obstruction is also likely present given severe enlargement of the prostate gland.
9. Mild circumferential wall thickening and fluid distention of the rectum suggesting an acute prostatitis. Rectal tube in place.
02/07/25 CXR/AXR: Extremely low lung volumes. Some bibasilar opacification which could represent atelectasis and/or pneumonia and small bilateral pleural effusions, left possibly greater than right. Air seen throughout small bowel, few loops
borderline prominent, nonspecific air-fluid levels, most likely representing ileus. No free air.
Care Review
Plan reviewed with: Physician (Dr. Bravo)
--- NOTE | 2025-02-08 10:00 | PHA.VAN.FU ---
Vancomycin Assessment / Plan
- Assessment
Hemodialysis Schedule: Other (new start HD for JSEUS)
WBC's are: Trending Up
In the past 24 hrs, patient has been: Afebrile
Concomitant Antimicrobials: CEFEPIME
- Dosing Plan
Dosing by Level: Re-dose today (VANCOMYCIN 750 mg x 1 post dialysis)
- Monitoring Plan
Random Level: 02/10 @0600
- Follow Up
Pharmacy will continue to follow.
Vancomycin Follow UP
- -
Patient Age: 79
Patient Sex: Male
Vancomycin Day #: 12
Indication: Skin And Soft Tissue
Requesting Provider: Dr. Archer/Dr. Maguire
Pertinent Antimicrobial Allergies:
NKDA
Height / Weight:
Height 5 ft 9 in
Actual Weight 99.6 kg
Pertinent Past Medical History: BMI ~30.5, DM 2
- Vital Signs / Lab Results
Temp Pulse Resp BP Pulse Ox
97.6 F 82 12 113/70 97
02/08/25 08:00 02/08/25 00:00 02/08/25 00:00 02/08/25 00:00 02/08/25 00:00
Lab Results - Hematology
02/06/25 02/07/25 02/08/25
03:45 14:21 05:49
WBC 11.3 H 12.4 H 13.5 H
Lab Results - Chemistry
02/06/25 02/06/25 02/07/25
03:45 04:47 05:15
BUN Cancelled 83 H 63 H
Creatinine Cancelled 4.1 H* 3.3 H
Estimated Creat Clear Cancelled 18 22
02/08/25
05:49
BUN 73 H
Creatinine 3.8 H
Estimated Creat Clear 19
Microbiology Results
02/03/25 21:30 Anaerobic Culture - Preliminary
Foot - Left Culture pending. Anaerobic cultures are examined after 3
days incubation. Additional information to follow.
02/03/25 21:30 Wound Culture - Preliminary
Foot - Left Staph aureus MRSA
Gram Stain - Preliminary
02/03/25 21:30 Tissue Culture - Final
Foot - Left Staph aureus MRSA
Gram Stain - Final
Therapeutic Drug Monitoring
Random Vancomycin 17.2 ug/ml 02/07/25 05:15
--- NOTE | 2025-02-08 11:12 | W.PN.NEPH.HD ---
Assessment
-
Seen on HD. no complaints. VSS, access temp HD CVC
Progress Note - Hemodialysis
-
Date of Service: February 08, 2025
Duration: 30 minutes and 3 hours
Potassium Bath: 3
Calcium Bath: 2.5
Opti-Dialyzer: 160
Ultrafiltration: Other (2 kg)
Blood Flow: 400
Dialysate Flow: 600
Heparin: 0
EPO: 6000 units
[2025-02-08] MEDS: HEPARIN 2100 UNITS INTRACATH (12:05)
[2025-02-08] MEDS: NOVOLOG FLEXPEN SC (12:23)
[2025-02-08] MEDS: NOVOLOG FLEXPEN-LOW RESISTANCE SC ×2 (12:23→22:08)
[2025-02-08] MEDS: VANCOCIN 150 IV (12:24)
[2025-02-08 12:29] LABS: Glucose - Point of Care 101 mg/dl (70-99)
--- NOTE | 2025-02-08 12:33 | W.PN.CARDCBS ---
Today's Communication / Plan
-
Await EKG
Tentative angiogram on Monday per vascular
Heart rate in atrial fibrillation stable. Continue IV heparin eventual NOAC
Impression / Plan
-
PCP: Dr. Roman Macedo
[employer] Librarian: Dr. Munoz
Impression:
Admitted with LLE/left foot cellulitis 01/28/2025
Sepsis related to above
JESUS requiring hemodialysis
Peripheral vascular disease status post left partial fifth ray amputation 02/03/2025
Diabetes mellitus type 2
Hypertension
Permanent atrial fibrillation, RVR
Acute on chronic HFpEF
Dyslipidemia
Obesity
Paroxysmal complete heart block status post dual-chamber pacemaker 2021 ([employer])
Echo 08/2021: EF 55-60, mild concentric LVH, small pericardial effusion
Echo 10/2024: EF 65%, mild MS, mild with gradient 10 mmHg, PASP 30 mmHg
Echo 02/02/2025: EF 60 to 65%, stage II diastolic dysfunction, normal RV size and function
LHC 09/07/21: LAD is on the smaller side and is calcified with diffuse disease and reaches the apex. The second OM is small and has a 40% ostial stenosis. The distal OM 3 inferior branch has an ostial 50% stenosis. RCA has mid 50% stenosis. Given that
this was the area that was positive and the stress test it was decided to proceed with IFR. iFRs of this lesion were serially negative around 0.92 indicating a nonobstructive lesion. Conclusions: moderate nonobstructive coronary atherosclerosis,
normal LV function, mild .
Recommendations:
He remains in rate controlled asymptomatic atrial fibrillation
Telemetry reviewed follow
EKG ordered
Continue anticoagulation with IV heparin now and eventually resume NOAC
Not requiring medications currently for rate control
Heart failure with preserved ejection fraction
Volume status improving through dialysis/ultrafiltration. Continue. Defer to nephrology.
Continue to assess for guideline directed medical treatment use.
Echocardiogram reviewed.
Peripheral vascular disease being followed by vascular surgery
Plan currently is for lower extremity angiogram given PVD requiring left partial fifth ray amputation 02/03/25
Ongoing discussions with primary service and vascular
History of hypertension
Currently not requiring treatment. Previously multiple medications required.
Now with ileus
GI assessing
Sepsis currently stable followed by primary service.
HPI: Patient is a pleasant 71-year-old male with a past medical history significant for permanent atrial fibrillation, paroxysmal complete heart block status post dual-chamber pacemaker 2021, hypertension, hyperlipidemia, diabetes mellitus, prior
syncope, nerve stimulator, osteoarthritis who initially presented due to worsening lower extremity infection. Patient was noted to have significant atherosclerosis of bilateral lower extremities. Patient's renal function began to worsen and
patient with significant leukocytosis. Patient and family had reported increasing shortness of breath, decreased oral intake, and nausea. Since admission, patient undergoing treatment of infection with IV antibiotics however, renal function
continued to worsen. Patient underwent implant of dialysis catheter on 02/02/2025 with initiation of hemodialysis. Cardiology consulted due to elevated troponin and elevated BNP. Patient's initial troponin was noted to be 0.5 which is down trended
to 0.35 and 0.315. In discussion with patient and family, he notes some intermittent variable chest discomfort which occasionally occurs with position changes and at rest but no reported chest pain with activity or exertion. Prior to admission,
patient was active and denied chest pain shortness of breath or palpitations with activity or exertion. Additionally, patient's BNP checked on 02/01/2025 was greater than 27,000. Patient is a non-smoker, no alcohol, no illicits. Patient without
significant family history.
Progress Note - [employer] Librarian
Subjective
Date of Service: February 08, 2025
He is fatigued and on hemodialysis currently without complaint.
Objective
Labs:
02/08/25 05:49
02/08/25 05:49
Labs
Hgb 9.4 g/dL (13.0-18.0) L 02/08/25 05:49
Hct 27.3 % (39.0-52.0) L 02/08/25 05:49
Plt Count 176 10^3/uL (130-400) 02/08/25 05:49
PT 27.8 Sec (11.4-14.6) H 02/03/25 00:54
INR 2.59 02/03/25 00:54
APTT 34.1 Sec (23.4-35.0) 02/07/25 22:40
Sodium 135 mmol/L (135-145) 02/08/25 05:49
Potassium 4.0 mmol/L (3.5-5.1) 02/08/25 05:49
BUN 73 mg/dl (9-20) H 02/08/25 05:49
Creatinine 3.8 mg/dL (0.7-1.3) H 02/08/25 05:49
Glucose 152 mg/dl (70-99) H 02/08/25 05:49
Vital Signs and I&O:
Vital Signs
Temp Pulse Resp BP Pulse Ox
97.6 F 82 12 113/70 97
02/08/25 08:00 02/08/25 00:00 02/08/25 00:00 02/08/25 00:00 02/08/25 00:00
Vital Signs
Temp Pulse Resp BP Pulse Ox
97.6 F 82 12 113/70 97
02/08/25 08:00 02/08/25 00:00 02/08/25 00:00 02/08/25 00:00 02/08/25 00:00
Intake & Output
02/06/25 02/07/25 02/08/25 02/09/25
06:59 06:59 06:59 06:59
Intake Total 466 / 466 108 / 108 0 / 0
Output Total 0 / 0
Balance 466 / 466 108 / 108 0 / 0
Physical Exam
Physical Exam
General: Frail
Heart: Irregular
Left leg wrapped.
Neuro: Awake and alert.
--- NOTE | 2025-02-08 12:45 | PTOTSP ---
Speech Pathology Follow Up
More awake and alert today. Per RN, pt was cleared by GI for clear liquids pending FLUID JET CUTTER OPERATOR re-evaluation. Started on protonics yesterday. Continues to c/o burning sensation and pain when swallowing. PO trials of thin liquids with intermittent coughing,
odynophagia, and c/o of epigastric pain following trials.
Impression:
S/s concerning for oropharyngeal dysphagia and possible esophageal dysphagia re: intermittent coughing with thin liquids and c/o of globus sensation. Aspiration risk is increased 2/2 increased lethargy, concern for aspiration per recent CXR,
prolonged hospitalization, and multiple comorbidities.
Recommend:
1. Clear liquids as cleared by GI
2. Meds via IV
3. Aspiration & reflux precautions: HOB upright during PO intake and for 60 minutes after PO intake; oral care QID; small sips; slow intake rate.
4. FLUID JET CUTTER OPERATOR to f/u re: re-assessing candidacy/appropriateness for diet upgrade and to determine if pt would benefit from an instrumental swallow study.
--- NOTE | 2025-02-08 12:59 | W.PN.GI.CBS2 ---
Today's Communication / Plan
-
monitor H/H
protonix bid
Assessment / Plan
-
Summary: 79yo male admitted with sepsis due to L foot infection requiring I&D 01/31 and amputation 5th digit 02/03, ARF requiring dialysis, transfer to ICU 02/02 due to severe sepsis requiring pressors, n/v requiring NGT placement 02/03 AXR showed
moderate/large amount of gaseous distention of stomach, no other dilated loops bowel. NGT drained significant gastric fluid then pt removed after couple days. Tried on diet but eating minimal amounts. Speech eval noted inability to tolerate more
than couple bites puree
Impression:
acute GI bleeding -patient was on heparin. Currently on hold. No further bleeding today. Hb stable
GOO vs ileus.
Possible stress ulcers due to severe sepsis
L foot infection
ARF/HD
Afib on xarelto OP
Paroxysmal complete heart block s/p pacer
abd x ray 02/08/2025
Air seen throughout small bowel, few loops borderline prominent, nonspecific air-fluid levels, most likely representing ileus. No free air.
Recommendations:
monitor H/H
Continue Protonix IV twice daily
Okay to start clear liquid diet if cleared by speech
If tolerating liquid diet okay to add Carafate
Continue f/u with speech to see if swallowing improves/able to resume diet
If symptom persist will eventually consider EGD. Would like to avoid anesthesia/hypotension if not necessary
Total Time Spent with Patient (in minutes): 35
Subjective
Subjective
Date of Service: February 08, 2025
Denies any nausea/vomiting/abdominal pain/chest pain
Objective
Data Reviewed
Laboratory Data:
Laboratory Results
02/08/25 05:49
02/08/25 05:49
Laboratory Results
PT 27.8 Sec (11.4-14.6) H 02/03/25 00:54
INR 2.59 02/03/25 00:54
APTT 34.1 Sec (23.4-35.0) 02/07/25 22:40
Phosphorus 4.7 mg/dl (2.5-4.5) H 02/04/25 16:14
Magnesium 1.9 mg/dl (1.6-2.3) 02/04/25 16:14
Total Bilirubin 1.0 mg/dl (0.2-1.3) 02/04/25 16:14
AST 69 U/L (17-59) H 02/04/25 16:14
ALT 43 U/L (0-50) 02/04/25 16:14
Alkaline Phosphatase 115 U/L (38-126) 02/04/25 16:14
Vital Signs and I&O:
Vital Signs
Temp Pulse Resp BP Pulse Ox
97.6 F 82 12 113/70 97
02/08/25 08:00 02/08/25 00:00 02/08/25 00:00 02/08/25 00:00 02/08/25 00:00
I&O
02/07/25 02/08/25 02/09/25
06:59 06:59 06:59
Intake Total 108 / 108 0 / 0
Balance 108 / 108 0 / 0
Physical Exam
Physical Exam
GI: Soft, Non Distended and Non Tender
[2025-02-08] MEDS: NOVOLOG FLEXPEN 6 UNITS SC (17:52)
[2025-02-08] MEDS: MAXIPIME 1000 MG IV (17:55)
[2025-02-08] MEDS: STERILE WATER FOR INJECTION 10 ML IV (17:55)
[2025-02-08 18:02] LABS: Glucose - Point of Care 155 mg/dl (70-99)
--- NOTE | 2025-02-08 19:38 | PTCARENOTE ---
day shift note. see nursing flowsheet. pt more alert and conversant today. recieved HD this am. weaned to room air. cleared for clear liquid diet and pt had chicken broth and water ice for dinner without any difficulty and no c/o pain with
swallowing. passing gas but no bm this shift.pt incontinent of mod anount yellow urine x 1 . left foot dressing intact. SCD applied to RLE.
[2025-02-08] MEDS: DILAUDID 0.5 MG IV (21:04)
[2025-02-08] MEDS: REMOVE LIDOCAINE PATCH 1 PATCH REMOVE (21:04)
[2025-02-08] MEDS: LANTUS 0.15 UNITS SC (21:09)
[2025-02-08 21:20] LABS: Glucose - Point of Care 144 mg/dl (70-99)
--- NOTE | 2025-02-08 23:44 | PTCARENOTE ---
Assumed care of pt from dayshift RN. Pt ox3 and drowsy. afib on monitor, hr 80s. SpO2 94% on RA. Vital signs and assessment as documented. PRN Dilaudid administered for 8/10 pain throughout pt's bilateral legs (see MAR). Pt is currently asleep in
bed with call cervantes in reach.
[2025-02-09] VITALS (13 sets, daily range): BP systolic 106–156; BP diastolic 46–89; PULSE 86; O2SAT 96; BMI 32.4
[2025-02-09] MEDS: OCEAN, SALINE MIST 2 SPRAYS NASAL (02:34)
[2025-02-09] MEDS: DUONEB 3 ML INH ×2 (02:48→18:06)
--- NOTE | 2025-02-09 03:08 | PTCARENOTE ---
Pt c/o congestion and SOB while resting in bed. SpO2 96% on RA. PRN nasal spray administered and RT Imer notified. PRN maggy tx administered by RT. Pt states he no longer feels SOB. SpO2 97% on RA.
[2025-02-09 04:36] LABS: Hematocrit 26.1 % (39.0-52.0); Hemoglobin 8.9 g/dL (13.0-18.0); Mean Corp Hgb Conc. 34.1 g/dL (33.0-37.0); Mean Corpuscular Volume 88.5 fL (80.0-94.0); Platelet Count 173 10^3/uL (130-400); Red Cell Dist. Width 14.7 % (11.5-14.5)
[2025-02-09 04:54] LABS: Blood Urea Nitrogen 44 mg/dl (9-20); Calcium 8.2 mg/dl (8.4-10.2); Carbon Dioxide 28 mmol/L (22-30); Chloride 100 mmol/L (98-107); Estimated Creatinine Clearance 24 ml/min; Glucose 155 mg/dl (70-99); Potassium 3.5 mmol/L (3.5-5.1); Sodium 135 mmol/L (135-145); eGFR 21.47
--- NOTE | 2025-02-09 07:27 | PHA.VAN.FU ---
Vancomycin Assessment / Plan
- Assessment
Renal Function: SCR Decreasing
Hemodialysis Schedule: MWF
WBC's are: Trending Down
In the past 24 hrs, patient has been: Afebrile
Concomitant Antimicrobials: cefepime
- Dosing Plan
Dosing by Level: Hold off on dosing today (give vancomycin after HD on 8.11)
- Monitoring Plan
Random Level: 8.11 @ 0600
- Follow Up
Pharmacy will continue to follow.
Vancomycin Follow UP
- -
Patient Age: 79
Patient Sex: Male
Vancomycin Day #: 13
Indication: Skin And Soft Tissue
Requesting Provider: Dr. Archer/Dr. Maguire
Pertinent Antimicrobial Allergies:
NKDA
Height / Weight:
Height 5 ft 9 in
Actual Weight 99.45 kg
Pertinent Past Medical History: BMI ~30.5, DM 2
- Vital Signs / Lab Results
Temp Pulse Resp BP Pulse Ox
98.0 F 81 11 137/73 95
02/09/25 03:00 02/09/25 02:00 02/09/25 02:00 02/09/25 02:00 02/09/25 02:51
Lab Results - Hematology
02/07/25 02/08/25 02/09/25
14:21 05:49 03:52
WBC 12.4 H 13.5 H 11.0 H
Lab Results - Chemistry
02/07/25 02/08/25 02/09/25
05:15 05:49 03:52
BUN 63 H 73 H 44 H
Creatinine 3.3 H 3.8 H 2.9 H
Estimated Creat Clear
Microbiology Results
02/03/25 21:30 Anaerobic Culture - Preliminary
Foot - Left Culture pending. Anaerobic cultures are examined after 3
days incubation. Additional information to follow.
02/03/25 21:30 Wound Culture - Preliminary
Foot - Left Staph aureus MRSA
Gram Stain - Preliminary
02/03/25 21:30 Tissue Culture - Final
Foot - Left Staph aureus MRSA
Gram Stain - Final
Therapeutic Drug Monitoring
Random Vancomycin 17.2 ug/ml 02/07/25 05:15
--- NOTE | 2025-02-09 08:00 | W.PN.ID1 ---
Date of Service
Date of Service: February 09, 2025
Today's Communication
Continue antibiotics.
Assessment / Plan
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
. spine stimulator incompatible with MRI.
# PAD, left 5th ischemic toe
. s/p CT angiogram
# s/p septic shock
# Leukocytosis overall improving
# Suspecting pneumonia/aspiration
# Ileus
# JESUS
. HD started 02/02
. Urine eos neg
# DM2 with neuropathy
- Blood cx's neg. Ucx neg.
- Wound cx MRSA
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
OR cx's : MRSA
Bone path pending
- Continue Vancomycin, dosing by level
- Continue cefepime 1g IV q24 (d#7 of 7)for suspecting PNA
- Trend WBC/vitals.
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
Diabetes mellitus type 2
Hypertension
Atrial fibrillation on Xarelto
pacemaker placement
Chronic pain with spinal stimulator, not active
Chronic left leg weakness due to history of back injury during lumbar procedure 2019
Lumbar laminectomy
Chief Complaint
-: Clinical Sepsis and Other (osteo of left fifth metatarsal)
Subjective / Review of Systems
Patient seen and examined. Reports no specific complaints at present. Denies fevers or chills.
Vital Signs / Physical Exam
Vital Signs
Vital Signs
Temp Pulse Resp BP Pulse Ox
98.0 F 81 11 137/73 95
02/09/25 03:00 02/09/25 02:00 02/09/25 02:00 02/09/25 02:00 02/09/25 02:51
Physical Exam
Constitutional: No Acute Distress, Comfortable and Non-toxic
Eyes: Sclera Anicteric
Cardiovascular: Regular Rate and S1/S2; Negative S3/S4
Pulmonary: Clear (anteriorly) and Non Labored
Gastrointestinal: Soft, Non Tender, Non Distended and Normal Bowel Sounds
Extremities: Edema (Left lower extremity)
Wound: Other (left foot dressing dry)
Neurological: Awake and Alert
Psychological: Calm
Lines: HD Cath (Right IJ)
Objective Data
Lab Data
Lab Results
02/09/25 03:52
02/09/25 03:52
ESR 78 mm/hour (0-20) H 01/28/25 12:23
PT 27.8 Sec (11.4-14.6) H 02/03/25 00:54
INR 2.59 02/03/25 00:54
APTT 34.1 Sec (23.4-35.0) 02/07/25 22:40
Estimated Creat Clear 24 ml/min 02/09/25 03:52
Lactic Acid 1.7 mmol/L (0.7-2.0) 02/05/25 00:53
Total Bilirubin 1.0 mg/dl (0.2-1.3) 02/04/25 16:14
AST 69 U/L (17-59) H 02/04/25 16:14
ALT 43 U/L (0-50) 02/04/25 16:14
Alkaline Phosphatase 115 U/L (38-126) 02/04/25 16:14
C-Reactive Protein 228.10 mg/L (0.0-10.00) H 01/28/25 12:23
Most recent labs reviewed.
Micro Results:
02/03/25 21:30 Anaerobic Culture - Preliminary
Foot - Left Culture pending. Anaerobic cultures are examined after 3
days incubation. Additional information to follow.
02/03/25 21:30 Wound Culture - Preliminary
Foot - Left Staph aureus MRSA
Gram Stain - Preliminary
02/03/25 21:30 Tissue Culture - Final
Foot - Left Staph aureus MRSA
Gram Stain - Final
02/02/25 13:44 Urine Culture - Final
Urine NO GROWTH
01/29/25 04:07 Blood Culture - Final
Blood/Venous No Growth - Final Report
01/28/25 12:24 Blood Culture - Final
Blood/Venous No Growth - Final Report
01/31/25 09:04 Wound Culture - Final
Foot - Left Staph aureus MRSA
Gram Stain - Final
02/01/25 19:47 Influenza Types A & B (GIFTY) - Final
Nasal Swab Negative for Influenza A & B, NAAT
Negative results must be combined with clinical observations
and patient history.
Nucleic Acid Amplification test (NAAT)performed on the
[employer] platform.
01/30/25 10:04 Wound Culture - Final
Foot - Left Staph aureus MRSA
Gram Stain - Final
01/28/25 17:44 MRSA Screen - Final
Nose No Methicillin Resistant Staphylococcus aureus isolated.
Imaging:
01/28/25 Left foot XRAY: No acute osseous abnormality. Mild soft tissue swelling along the lateral forefoot.
02/01/25 CXR: Hazy increased density over the left lower hemithorax, probably mainly due to a posteriorly layering pleural effusion.
02/03/25 CXR: Parenchymal opacity within the right lower lung and the left mid to lower lung, similar to recent radiograph. Main differential considerations of atelectasis and/or pneumonia.
02/04/25 CT LE: 1. Interval amputation of the phalanges of the left 5th toe and the 5th metatarsal head since the prior exam performed 02/01/2025.
2. Large soft tissue wound distal to the 5th metatarsal with soft tissue emphysema extending deep to the lateral cortex of the 4th metatarsal head.
3. Moderate subcutaneous edema throughout the left lower leg and thigh.
4. Moderate to severe calcific atherosclerotic plaque throughout the left lower extremity.
5. Small to moderate-sized left knee joint effusion.
6. Severe anasarca in the left lateral abdominal wall.
7. Moderate retroperitoneal and extraperitoneal edema in the pelvis.
8. Severe diffuse urinary bladder wall thickening with adjacent perivesical inflammation suggesting ACUTE CYSTITIS. Chronic urinary bladder outlet obstruction is also likely present given severe enlargement of the prostate gland.
9. Mild circumferential wall thickening and fluid distention of the rectum suggesting an acute prostatitis. Rectal tube in place.
02/07/25 CXR/AXR: Extremely low lung volumes. Some bibasilar opacification which could represent atelectasis and/or pneumonia and small bilateral pleural effusions, left possibly greater than right. Air seen throughout small bowel, few loops
borderline prominent, nonspecific air-fluid levels, most likely representing ileus. No free air.
--- NOTE | 2025-02-09 08:11 | W.PN.HOSP.TC ---
Addendum entered and electronically signed by Jed Bravo DO 02/09/25 13:23:
Spoke with vascular surgery, Dr. Gonzalez, regarding new urine output and anticipated recovery of renal function. If we can hold off on angiogram then perhaps renal function will continue to improve. Dr. Gonzalez agrees.
Updated patient's son at the bedside. All questions answered.
Original Note:
Today's Communication/Plan
-
Speech therapy follow-up
Adjust insulin
Monitor hemoglobin
Assessment / Plan
Assessment / Plan
Gen-awake, alert, NAD
HEENT-NC, AT, anicteric, clear oral mm
Neck-supple
CV-reg, no M, +S1/S2
Lungs-clear B/L
Abd-soft, NT, ND
Ext-mild left upper extremity edema
Musculoskeletal-no cyanosis, clubbing, left foot dressing intact
Skin-warm and dry
Neuro-grossly non-focal
Psych-calm, cooperative
Aspiration pneumonitis/acute hypoxic respiratory failure -triggered by vomiting, possibly triggered by ileus. Oxygenation improved, now on room air.
Acute TME -due to sepsis, shock, critical illness. Mental status appears back to baseline.
Septic shock - due to to left fifth metatarsal abscess, acute osteomyelitis. IV vancomycin/cefepime per ID.
Shock resolved. Off vasopressors. Blood cultures negative so far. Wound culture shows MRSA.
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
Leukocytosis improving. Afebrile.
Unable to have MRI due to spinal stimulator not active
Wound culture growing MRSA
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 Podiatry following. Pathology from bone margins pending. Wound culture from the OR shows MRSA.
PAD -CT angiogram done 02/01 shows multifocal atherosclerotic disease throughout the bilateral lower extremities. Diminished flow in the left anterior tibial artery with some apparent distal reconstitution, diminished flow at the distal aspect of the
left peroneal artery at the level of the ankle. Short segment high-grade stenosis of the distal right SFA.
Vascular surgery having ongoing discussions with family regarding goals of care and decision for left lower extremity revascularization with potential risk for further renal deterioration.
Possibly will have angiogram next week.
Lactic acidosis due to sepsis/shock -lactic acid now normalized.
Differential diagnosis include metformin induced versus worsening sepsis
Metformin discontinued 02/01
MAP has been consistently greater than 65
Acute kidney injury -due to septic shock. Anuric. Gonzalez catheter in place. Etiology of JESUS most likely due to septic shock and medications and less likely due to contrast-induced nephropathy as contrast exposure was on 02/01, creatinine was 3.3
morning of 02/01.
Appreciate nephrology input, dialysis started 02/02
High anion gap metabolic acidosis due to septic shock, lactic acidosis. Metabolic acidosis resolved. Off sodium bicarbonate IV.
Hold metformin, lisinopril, hydrochlorothiazide, trend creatinine, no nephrotoxic drugs or NSAIDs
Ileus -developed nausea and vomiting on 02/03. Briefly treated with NG tube.
Repeat x-ray 02/07 showed air throughout the small bowel, few loops borderline prominent, nonspecific air-fluid levels, most likely ileus. No free air.
Tolerating clear liquids, actually had an appetite last night. Awaiting speech therapy input regarding diet advancement.
Acute GI bleed -exacerbated by anticoagulation with IV heparin. Cannot rule out stress ulcer. Last bowel movement 02/07, blood-tinged and burgundy. Anticoagulation now on hold. GI following.
Continue Protonix IV twice daily. No urgent need for endoscopy currently. Hemoglobin relatively stable today, 8.9.
May have a component of esophagitis, patient states he feels better now on Protonix.
Acute blood loss anemia -due to GI bleed as above. Hemoglobin stable at 8.9 today. Monitor closely. Admission hemoglobin was 11.6. May have baseline chronic anemia of unclear etiology.
Dysphagia -unknown acuity. Suspect related to critical illness, possible esophagitis.
LUE edema -Doppler ultrasound negative for DVT.
Acute on chronic heart failure with preserved ejection fraction
Cardiology following, continue dialysis as per nephrology
Troponin elevation -suspect acute nonischemic myocardial injury due to septic shock. Troponin trending down.
Permanent atrial fibrillation with rapid ventricular response
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
Hold anticoagulation for acute GI bleed. Was on Xarelto prior to admission.
Hyponatremia -resolved.
Hyperphosphatemia -due to JESUS. Improving.
DM 2 with hyperglycemia -at home he was on insulin degludec 24 units at bedtime, NovoLog sliding scale with meals, metformin.
Hemoglobin A1c 7.1 on 01/13/2025
Hold metformin 1000 mg daily due to JESUS
Glucose 155 this morning, 144 last night.
Continue Lantus 15 units at bedtime. Change aspart to 3 units before meals. Low resistance corrective scale.
Essential hypertension -meds on hold for hypotension, shock.
Hyperlipidemia -was on lovastatin prior to admission.
Obesity due to excess calories
DVT prophylaxis -SCDs ordered.
Full code
PT/OT -Eventual SNF when medically stable.
Anticipated Discharge: > 48 hours
Subjective/Interval History
-
Date of Service: February 09, 2025
Patient seen and examined. No complaints.
Objective Data
-
Labs:
Laboratory Results
02/09/25
03:52
WBC 11.0 H
Hgb 8.9 L
Hct 26.1 L
Plt Count 173
Sodium 135
Potassium 3.5
Chloride 100
Carbon Dioxide 28
BUN 44 H
Creatinine 2.9 H
Glucose 155 H
Calcium 8.2 L
Vital Signs:
Vital Signs
Temp Pulse Resp BP Pulse Ox
98.0 F 81 11 137/73 95
02/09/25 03:00 02/09/25 02:00 02/09/25 02:00 02/09/25 02:00 02/09/25 02:51
I&O
02/08/25 02/09/25 02/10/25
06:59 06:59 06:59
Intake Total 0 / 0 450 / 450
Balance 0 / 0 450 / 450
Review of Systems
-
History Source: Patient
All other systems: Reviewed and negative
[2025-02-09] MEDS: NSS (PRESERVATIVE FREE) 10 ML IV ×2 (09:26→22:05)
[2025-02-09] MEDS: PROTONIX IV 40 MG IV ×2 (09:26→22:04)
[2025-02-09] MEDS: LIDOCAINE 4% PATCH TOPICAL (09:27)
[2025-02-09] MEDS: NOVOLOG FLEXPEN-LOW RESISTANCE 1 UNITS SC (09:28)
[2025-02-09] MEDS: NOVOLOG FLEXPEN 3 UNITS SC ×3 (09:28→17:22)
--- NOTE | 2025-02-09 09:36 | W.PN.POD ---
Today's Communication
Today's Communication
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
Assessment / Plan
-
S/P Left partial 5th ray amputation - secondary to Left foot Diabetic foot infection
Sepsis
JESUS
IDDM
neuropathy
PAD
Plan:
The left foot wound was flushed and dressed with silver alginate today. Continue vanco/cefipime per ID. Bone & would cultures pending. 5th ray pathology and proximal clean margin pending. Vascular plans pending. will follow
Subjective
Chief Complaint
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
Subjective
Patient seen at bedside - awake but somnolent.
Objective
Temp Pulse Resp BP Pulse Ox
98.0 F 81 11 137/73 95
02/09/25 03:00 02/09/25 02:00 02/09/25 02:00 02/09/25 02:00 02/09/25 02:51
02/09/25 03:52
02/09/25 03:52
Vital Signs and Lab results were reviewed.
Physical Exam
Physical Exam
Left foot with bandages intact, minimal strikethrough on inner bandages. non-palpable pulses, CFT delayed, Packing in place, wound bed is clean, no purulence expressed. Would edges are viable, no necrosis. Area of previous eschar along dorsal
medial border of incision is unchanged. erythema significantly improved. Dark coagulated blood in base of wound
[2025-02-09 09:38] LABS: Glucose - Point of Care 176 mg/dl (70-99)
[2025-02-09] MEDS: LIDOCAINE 4% PATCH 1 PATCH TOPICAL (09:55)
--- NOTE | 2025-02-09 11:33 | W.PN.GI.CBS2 ---
Today's Communication / Plan
-
Continue PPI twice daily
Add Carafate
Advance diet as tolerated
Assessment / Plan
-
Summary: 79yo male admitted with sepsis due to L foot infection requiring I&D 01/31 and amputation 5th digit 02/03, ARF requiring dialysis, transfer to ICU 02/02 due to severe sepsis requiring pressors, n/v requiring NGT placement 02/03 AXR showed
moderate/large amount of gaseous distention of stomach, no other dilated loops bowel. NGT drained significant gastric fluid then pt removed after couple days. Tried on diet but eating minimal amounts. Speech eval noted inability to tolerate more
than couple bites puree
Impression:
acute GI bleeding -patient was on heparin. Currently on hold. Hb relatively stable. Likely etiology-esophagitis versus peptic ulcer disease
GOO vs ileus.
Possible stress ulcers due to severe sepsis
L foot infection
ARF/HD
Afib on xarelto OP
Paroxysmal complete heart block s/p pacer
abd x ray 02/08/2025
Air seen throughout small bowel, few loops borderline prominent, nonspecific air-fluid levels, most likely representing ileus. No free air.
Recommendations:
Tolerating clear liquid diet. Improvement after PPI
Continue Protonix IV twice daily
Will add Carafate
Okay to advance diet as tolerated if cleared by speech
If symptoms persist / significant GI bleed will eventually consider EGD. Would like to avoid anesthesia/hypotension if not necessary
Total Time Spent with Patient (in minutes): 35
Subjective
Subjective
Date of Service: February 09, 2025
Feeling better. Tolerating clear liquid diet with minimal chest discomfort
Objective
Data Reviewed
Laboratory Data:
Laboratory Results
02/09/25 03:52
02/09/25 03:52
Laboratory Results
PT 27.8 Sec (11.4-14.6) H 02/03/25 00:54
INR 2.59 02/03/25 00:54
APTT 34.1 Sec (23.4-35.0) 02/07/25 22:40
Phosphorus 4.7 mg/dl (2.5-4.5) H 02/04/25 16:14
Magnesium 1.9 mg/dl (1.6-2.3) 02/04/25 16:14
Total Bilirubin 1.0 mg/dl (0.2-1.3) 02/04/25 16:14
AST 69 U/L (17-59) H 02/04/25 16:14
ALT 43 U/L (0-50) 02/04/25 16:14
Alkaline Phosphatase 115 U/L (38-126) 02/04/25 16:14
Vital Signs and I&O:
Vital Signs
Temp Pulse Resp BP Pulse Ox
98.2 F 81 11 137/73 96
02/09/25 07:25 02/09/25 02:00 02/09/25 02:00 02/09/25 02:00 02/09/25 09:36
I&O
02/08/25 02/09/25 02/10/25
06:59 06:59 06:59
Intake Total 0 / 0 450 / 450 120 / 120
Output Total 325 / 325
Balance 0 / 0 450 / 450 -205 / -205
Physical Exam
Physical Exam
GI: Soft, Non Distended and Non Tender
--- NOTE | 2025-02-09 12:28 | W.PN.NEPH.PH ---
Today's Communication / Plan
-
HD tomorrow
Assessment/Plan
-
IMP:
TME
Septic shock
Lactic acidosis
Sepsis 2/2 to Diabetic left foot cellulitis w/ lymphangitis
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
Acute kidney injury-baseline cr 0.9-1.1
Peripheral artery disease
hyponatremia
IDDM 2
Essential hypertension
Constipation
A-fib�permanent
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
HLD
Obesity due to excess calories
Plan:
serologies unremarkable
HD tomorrow (switch to MWF schedule)
plan for temp to tunneled HD CVC tomorrow
there certainly could be some recovery of renal function, but would not let this possibility delay plans for rehab
holding Agram until renal recovery can be determined
d/w and son
From previous discussion They are concerned that he will have a difficult time processing negative information and would like to be the ones to relay clinical information to him if possible (short of patient asking a direct question regarding
prognosis)
-
-
Date of Service: February 09, 2025
CC / HPI / ROS
-
Chief Complaint:
JESUS
History of Present Illness:
some urine output today ~320ml
JESUS/HD tolerated HD yesterday
BP stable
Na up to 135
some po intake
Review of Systems:
confused
on O2 4lit
no cp or sob noted
Labs
-
Labs:
WBC 11.0 10^3/uL (4.8-10.8) H 02/09/25 03:52
RBC 2.95 10^6/uL (4.70-6.10) L 02/09/25 03:52
Hgb 8.9 g/dL (13.0-18.0) L 02/09/25 03:52
Hct 26.1 % (39.0-52.0) L 02/09/25 03:52
Plt Count 173 10^3/uL (130-400) 02/09/25 03:52
Sodium 135 mmol/L (135-145) 02/09/25 03:52
Potassium 3.5 mmol/L (3.5-5.1) 02/09/25 03:52
Chloride 100 mmol/L (98-107) 02/09/25 03:52
Carbon Dioxide 28 mmol/L (22-30) 02/09/25 03:52
BUN 44 mg/dl (9-20) H 02/09/25 03:52
Creatinine 2.9 mg/dL (0.7-1.3) H 02/09/25 03:52
eGFR 21.47 02/09/25 03:52
Glucose 155 mg/dl (70-99) H 02/09/25 03:52
Calcium 8.2 mg/dl (8.4-10.2) L 02/09/25 03:52
Phosphorus 4.7 mg/dl (2.5-4.5) H 02/04/25 16:14
Iol-C-Ztwjkzfstue Pept > 98899 pg/ml 02/01/25 20:16
Albumin 3.0 g/dl (3.5-5.0) L 02/04/25 16:14
Physical Exam
-
Vital Signs:
Vital Signs
Temp Pulse Resp BP Pulse Ox
98.2 F 81 11 137/73 96
02/09/25 07:25 02/09/25 02:00 02/09/25 02:00 02/09/25 02:00 02/09/25 09:36
Cardiovascular:: Regular rate and rhythm
Lung Excursion:: Normal
Abdomen:: Nontender and Soft
Bowel Sounds:: Normal
Extremity Edema:: None: Bilateral:
--- NOTE | 2025-02-09 13:13 | CM ---
Patient seen at bedside with son present in IMU. CM sent updated clinicals to [facility] and patient will need updated SNF referrals when medically appropriate. CM will continue to follow for discharge planning needs.
Plan;SNF with HD
[2025-02-09 13:24] LABS: Glucose - Point of Care 215 mg/dl (70-99)
[2025-02-09] MEDS: NOVOLOG FLEXPEN-LOW RESISTANCE 2 UNITS SC ×2 (13:36→17:22)
--- NOTE | 2025-02-09 15:48 | W.PN.UPDATE ---
Update Note
Progress Note Update
as per request from attending - resumed heparin drip
--- NOTE | 2025-02-09 16:50 | W.PN.CARDCBS ---
Today's Communication / Plan
-
Resume heparin after discussion with primary service and GI through secure texting
Await ability to resume oral anticoagulation
Impression / Plan
-
PCP: Dr. Roman Macedo
Speech Language Pathologist Assistant: Dr. Munoz
Impression:
Admitted with LLE/left foot cellulitis 01/28/2025
Sepsis related to above
JESUS requiring hemodialysis
Peripheral vascular disease status post left partial fifth ray amputation 02/03/2025
Diabetes mellitus type 2
Hypertension
Permanent atrial fibrillation, RVR
Acute on chronic HFpEF
Dyslipidemia
Obesity
Paroxysmal complete heart block status post dual-chamber pacemaker 2021 ([employer]tronic)
Echo 08/2021: EF 55-60, mild concentric LVH, small pericardial effusion
Echo 10/2024: EF 65%, mild MS, mild with gradient 10 mmHg, PASP 30 mmHg
Echo 02/02/2025: EF 60 to 65%, stage II diastolic dysfunction, normal RV size and function
LHC 09/07/21: LAD is on the smaller side and is calcified with diffuse disease and reaches the apex. The second OM is small and has a 40% ostial stenosis. The distal OM 3 inferior branch has an ostial 50% stenosis. RCA has mid 50% stenosis. Given that
this was the area that was positive and the stress test it was decided to proceed with IFR. iFRs of this lesion were serially negative around 0.92 indicating a nonobstructive lesion. Conclusions: moderate nonobstructive coronary atherosclerosis,
normal LV function, mild .
Recommendations:
Family is at the bedside. He is more awake today and more conversant. He now is making urine. This is encouraging. In review of records angiogram is now placed on hold to further allow renal function improvement.
He remains in rate controlled asymptomatic atrial fibrillation
Telemetry reviewed follow
EKG from yesterday remains stable
Initially given ileus which has now resolved anticoagulation was held. After review with GI and primary service it is okay to resume anticoagulation with IV heparin and eventually resume NOAC pending clinical course and future procedures.
Not requiring medications currently for rate control
Heart failure with preserved ejection fraction
Volume status improving through dialysis/ultrafiltration. Continue. Defer to nephrology.
Continue to assess for guideline directed medical treatment use.
Echocardiogram reviewed.
Peripheral vascular disease being followed by vascular surgery
Await further vascular plans. Angiogram is on hold at the current time to allow for renal function improvement. He has PVD which has required left partial fifth ray amputation 02/03/25
Ongoing discussions with primary service and vascular
History of hypertension
Currently not requiring treatment. Previously multiple medications required.
Sepsis currently stable followed by primary service.
Discussed with his and daughter at the bedside.
HPI: Patient is a pleasant 71-year-old male with a past medical history significant for permanent atrial fibrillation, paroxysmal complete heart block status post dual-chamber pacemaker 2021, hypertension, hyperlipidemia, diabetes mellitus, prior
syncope, nerve stimulator, osteoarthritis who initially presented due to worsening lower extremity infection. Patient was noted to have significant atherosclerosis of bilateral lower extremities. Patient's renal function began to worsen and
patient with significant leukocytosis. Patient and family had reported increasing shortness of breath, decreased oral intake, and nausea. Since admission, patient undergoing treatment of infection with IV antibiotics however, renal function
continued to worsen. Patient underwent implant of dialysis catheter on 02/02/2025 with initiation of hemodialysis. Cardiology consulted due to elevated troponin and elevated BNP. Patient's initial troponin was noted to be 0.5 which is down trended
to 0.35 and 0.315. In discussion with patient and family, he notes some intermittent variable chest discomfort which occasionally occurs with position changes and at rest but no reported chest pain with activity or exertion. Prior to admission,
patient was active and denied chest pain shortness of breath or palpitations with activity or exertion. Additionally, patient's BNP checked on 02/01/2025 was greater than 27,000. Patient is a non-smoker, no alcohol, no illicits. Patient without
significant family history.
Progress Note - Speech Language Pathologist Assistant
Subjective
Date of Service: February 09, 2025
He denies chest pain and palpitations but is fatigued.
Objective
Labs:
02/09/25 03:52
Labs
Hgb 8.9 g/dL (13.0-18.0) L 02/09/25 03:52
Hct 26.1 % (39.0-52.0) L 02/09/25 03:52
Plt Count 173 10^3/uL (130-400) 02/09/25 03:52
PT 27.8 Sec (11.4-14.6) H 02/03/25 00:54
INR 2.59 02/03/25 00:54
APTT 34.1 Sec (23.4-35.0) 02/07/25 22:40
Sodium 135 mmol/L (135-145) 02/09/25 03:52
Potassium 3.5 mmol/L (3.5-5.1) 02/09/25 03:52
BUN 44 mg/dl (9-20) H 02/09/25 03:52
Creatinine 2.9 mg/dL (0.7-1.3) H 02/09/25 03:52
Glucose 155 mg/dl (70-99) H 02/09/25 03:52
Vital Signs and I&O:
Vital Signs
Temp Pulse Resp BP Pulse Ox
98.1 F 99 19 156/74 92
02/09/25 11:25 02/09/25 14:00 02/09/25 14:00 02/09/25 14:00 02/09/25 14:00
Vital Signs
Temp Pulse Resp BP Pulse Ox
98.1 F 99 19 156/74 92
02/09/25 11:25 02/09/25 14:00 02/09/25 14:00 02/09/25 14:00 02/09/25 14:00
Intake & Output
02/07/25 02/08/25 02/09/25 02/10/25
06:59 06:59 06:59 06:59
Intake Total 108 / 108 0 / 0 450 / 450 120 / 120
Output Total 325 / 325
Balance 108 / 108 0 / 0 450 / 450 -205 / -205
Physical Exam
Physical Exam
General: Chronically ill man
Heart: Irregularly irregular but distant heart sounds
Lungs: Coarse anterior breath
Extremities: Left leg wrapped
[2025-02-09 17:01] LABS: Hematocrit 26.6 % (39.0-52.0); Hemoglobin 9.1 g/dL (13.0-18.0); Mean Corp Hgb Conc. 34.2 g/dL (33.0-37.0); Mean Corpuscular Volume 87.2 fL (80.0-94.0); Platelet Count 206 10^3/uL (130-400); Red Cell Dist. Width 14.6 % (11.5-14.5)
[2025-02-09 17:12] LABS: APTT 32.5 Sec (23.4-35.0)
[2025-02-09] MEDS: CARAFATE 1 GRAM PO ×2 (17:13→22:04)
[2025-02-09] MEDS: MAXIPIME 1000 MG IV (17:14)
[2025-02-09] MEDS: STERILE WATER FOR INJECTION 10 ML IV (17:14)
[2025-02-09 17:32] LABS: Glucose - Point of Care 223 mg/dl (70-99)
[2025-02-09] MEDS: HEPARIN 25000 UNITS/250 ML IV (17:36)
[2025-02-09] MEDS: NOVOLOG FLEXPEN-LOW RESISTANCE 3 UNITS SC (22:03)
[2025-02-09] MEDS: REMOVE LIDOCAINE PATCH 1 PATCH REMOVE (22:04)
[2025-02-09] MEDS: LANTUS 0.15 UNITS SC (22:04)
[2025-02-09 22:13] LABS: Glucose - Point of Care 263 mg/dl (70-99)
[2025-02-10] VITALS (14 sets, daily range): BP systolic 94–158; BP diastolic 62–90
[2025-02-10 00:57] LABS: APTT 46.0 Sec (23.4-35.0)
--- NOTE | 2025-02-10 05:12 | PTCARENOTE ---
Assumed care of pt from dayshift RN. Pt ox3 and drowsy. afib on monitor, hr 80s. SpO2 95% on RA. Vital signs and assessment as documented. Hygiene completed. Pt resting in bed with call cervantes in reach.
--- NOTE | 2025-02-10 07:44 | W.PN.HOSP.TC ---
Today's Communication/Plan
-
See plan
Assessment / Plan
Assessment / Plan
Gen-awake, alert, NAD
HEENT-NC, AT, anicteric, clear oral mm
Neck-supple
CV-reg, no M, +S1/S2
Lungs-clear B/L
Abd-soft, NT, ND
Ext-mild left upper extremity edema
Musculoskeletal-no cyanosis, clubbing, left foot dressing intact
Skin-warm and dry
Neuro-grossly non-focal
Psych-calm, cooperative
Aspiration pneumonitis/acute hypoxic respiratory failure -triggered by vomiting, possibly triggered by ileus. Oxygenation improved, now on room air.
Acute TME -due to sepsis, shock, critical illness. Mental status appears back to baseline.
Septic shock - due to to left fifth metatarsal abscess, acute osteomyelitis.
-IV vancomycin per ID.
Shock resolved. Off vasopressors. Blood cultures negative so far. Wound culture shows MRSA.
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
Leukocytosis improving. Afebrile.
Unable to have MRI due to spinal stimulator not active
Wound culture growing MRSA
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 Podiatry following. Follow Pathology from bone margins. Wound culture from the OR shows MRSA.
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
hemodialysis, possible ileus, GI bleed.� Vascular surgery anticipating angiogram if patient and family willing to accept risk given ongoing renal failure requiring dialysis.� Renal function slowly improving, now he is making urine.
PAD
-CT angiogram done 02/01 shows multifocal atherosclerotic disease throughout the bilateral lower extremities. Diminished flow in the left anterior tibial artery with some apparent distal reconstitution, diminished flow at the distal aspect of the
left peroneal artery at the level of the ankle. Short segment high-grade stenosis of the distal right SFA.
Vascular surgery having ongoing discussions with family regarding goals of care and decision for left lower extremity revascularization with potential risk for further renal deterioration.
Possibly will have angiogram next week.
Lactic acidosis due to sepsis/shock -lactic acid now normalized.
Differential diagnosis include metformin induced versus worsening sepsis
Metformin discontinued 02/01
MAP has been consistently greater than 65
Acute kidney injury -due to septic shock. Anuric. Gonzalez catheter was placed. Etiology of JESUS most likely due to septic shock and medications and less likely due to contrast-induced nephropathy as contrast exposure was on 02/01, creatinine was 3.3
morning of 02/01.
Appreciate nephrology input, dialysis started 02/02. Dialysis IJ catheter was placed.
High anion gap metabolic acidosis due to septic shock, lactic acidosis. Metabolic acidosis resolved. Off sodium bicarbonate IV.
Hold metformin, lisinopril, hydrochlorothiazide, trend creatinine, no nephrotoxic drugs or NSAIDs
Hemodialysis tomorrow
Holding angiogram until renal recovery can be determined
Ileus -developed nausea and vomiting on 02/03. Briefly treated with NG tube.
Repeat x-ray 02/07 showed air throughout the small bowel, few loops borderline prominent, nonspecific air-fluid levels, most likely ileus. No free air.
Tolerating clear liquids, actually had an appetite last night. Awaiting speech therapy input regarding diet advancement.
Acute GI bleed -exacerbated by anticoagulation with IV heparin. Cannot rule out stress ulcer. Last bowel movement 02/07, blood-tinged and burgundy. GI following.
Continue Protonix IV twice daily. No urgent need for endoscopy currently. Hemoglobin relatively stable.
May have a component of esophagitis, patient states he feels better now on Protonix.
Acute blood loss anemia -due to GI bleed as above. Hemoglobin stable at 8.9 today. Monitor closely. Admission hemoglobin was 11.6. May have baseline chronic anemia of unclear etiology.
Dysphagia -unknown acuity. Suspect related to critical illness, possible esophagitis.
LUE edema -Doppler ultrasound negative for DVT.
Acute on chronic heart failure with preserved ejection fraction
Cardiology following, continue dialysis as per nephrology
Troponin elevation -suspect acute nonischemic myocardial injury due to septic shock. Troponin trending down.
Permanent atrial fibrillation with rapid ventricular response
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
-Continue Heparin Drip. Was on Xarelto prior to admission.
Hyponatremia -resolved.
Hyperphosphatemia -due to JESUS. Improving.
DM 2 with hyperglycemia -at home he was on insulin degludec 24 units at bedtime, NovoLog sliding scale with meals, metformin.
Hemoglobin A1c 7.1 on 01/13/2025
Hold metformin 1000 mg daily due to JESUS
Glucose 155 this morning, 144 last night.
Continue Lantus 15 units at bedtime. Change aspart to 3 units before meals. Low resistance corrective scale.
Essential hypertension -meds on hold for hypotension, shock.
Hyperlipidemia -was on lovastatin prior to admission.
Obesity due to excess calories
DVT prophylaxis -SCDs ordered. Heparin Drip.
Full code
PT/OT -Eventual SNF when medically stable.
Anticipated Discharge: 24 - 48 hours
Subjective/Interval History
-
Date of Service: February 10, 2025
Patient was seen and examined. He denied any new symptoms or complaints overnight. Carafate is not working/hard to swallow per him.
Objective Data
-
Labs:
Laboratory Results
02/10/25 02/10/25 02/10/25
00:17 06:00 07:00
WBC Pending
Hgb Pending
Hct Pending
Plt Count Pending
APTT 46.0 H Pending
Sodium Pending
Potassium Pending
Chloride Pending
Carbon Dioxide Pending
BUN Pending
Creatinine Pending
Glucose Pending
Calcium Pending
Vital Signs:
Vital Signs
Temp Pulse Resp BP Pulse Ox
98.4 F 86 14 153/78 95
02/10/25 07:40 02/10/25 04:05 02/10/25 04:05 02/10/25 04:05 02/10/25 00:00
I&O
02/09/25 02/10/25 02/11/25
06:59 06:59 06:59
Intake Total 450 / 450 840 / 840
Output Total 325 / 325
Balance 450 / 450 515 / 515
[2025-02-10] MEDS: NSS (PRESERVATIVE FREE) 10 ML IV ×2 (08:44→19:45)
[2025-02-10] MEDS: CARAFATE SUSPENSION 1 GM PO ×3 (08:44→21:28)
[2025-02-10] MEDS: LIDOCAINE 4% PATCH 1 PATCH TOPICAL (08:44)
[2025-02-10] MEDS: PROTONIX IV 40 MG IV ×2 (08:44→19:44)
[2025-02-10] MEDS: CARAFATE PO (09:03)
--- NOTE | 2025-02-10 09:06 | W.PN.CARDCBS ---
Today's Communication / Plan
-
Continue heparin
Await decision regarding hemodialysis
Await decision regarding best treatment of peripheral arterial disease
Impression / Plan
-
PCP: Dr. Roman Macedo
Hydraulic Design Engineer: Dr. Munoz
Impression:
Admitted with LLE/left foot cellulitis 01/28/2025
Sepsis related to above
JESUS requiring hemodialysis
Peripheral vascular disease status post left partial fifth ray amputation 02/03/2025
Diabetes mellitus type 2
Hypertension
Permanent atrial fibrillation, RVR
Acute on chronic HFpEF
Dyslipidemia
Obesity
Paroxysmal complete heart block status post dual-chamber pacemaker 2021 ([employer]tr[employer])
Echo 08/2021: EF 55-60, mild concentric LVH, small pericardial effusion
Echo 10/2024: EF 65%, mild MS, mild with gradient 10 mmHg, PASP 30 mmHg
Echo 02/02/2025: EF 60 to 65%, stage II diastolic dysfunction, normal RV size and function
LHC 09/07/21: LAD is on the smaller side and is calcified with diffuse disease and reaches the apex. The second OM is small and has a 40% ostial stenosis. The distal OM 3 inferior branch has an ostial 50% stenosis. RCA has mid 50% stenosis. Given that
this was the area that was positive and the stress test it was decided to proceed with IFR. iFRs of this lesion were serially negative around 0.92 indicating a nonobstructive lesion. Conclusions: moderate nonobstructive coronary atherosclerosis,
normal LV function, mild .
Recommendations:
Currently very frustrated with blood draws.
Unclear at present whether patient will undergo hemodialysis, creatinine is pending.
From cardiac standpoint, he is relatively stable.
Heart rate and blood pressure are within acceptable parameters.
He remains on heparin.
Will continue heparin until it is clear he does not require peripheral arterial intervention.
We will continue to follow.
HPI: Patient is a pleasant 71-year-old male with a past medical history significant for permanent atrial fibrillation, paroxysmal complete heart block status post dual-chamber pacemaker 2021, hypertension, hyperlipidemia, diabetes mellitus, prior
syncope, nerve stimulator, osteoarthritis who initially presented due to worsening lower extremity infection. Patient was noted to have significant atherosclerosis of bilateral lower extremities. Patient's renal function began to worsen and
patient with significant leukocytosis. Patient and family had reported increasing shortness of breath, decreased oral intake, and nausea. Since admission, patient undergoing treatment of infection with IV antibiotics however, renal function
continued to worsen. Patient underwent implant of dialysis catheter on 02/02/2025 with initiation of hemodialysis. Cardiology consulted due to elevated troponin and elevated BNP. Patient's initial troponin was noted to be 0.5 which is down trended
to 0.35 and 0.315. In discussion with patient and family, he notes some intermittent variable chest discomfort which occasionally occurs with position changes and at rest but no reported chest pain with activity or exertion. Prior to admission,
patient was active and denied chest pain shortness of breath or palpitations with activity or exertion. Additionally, patient's BNP checked on 02/01/2025 was greater than 27,000. Patient is a non-smoker, no alcohol, no illicits. Patient without
significant family history.
Progress Note - Hydraulic Design Engineer
Subjective
Date of Service: February 10, 2025: 79-year-old man admitted with left lower extremity and left foot cellulitis/sepsis January 28, status post fifth partial ray amputation on left February 03, acute on chronic HFpEF, and JESUS necessitating dialysis. EF is
60-65%, stage II diastolic dysfunction, mild MS and AAS by echo October 2024, cath in 2021 with moderate CAD but negative IFR. TME which is somewhat improved
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
Current meds: DuoNebs, vancomycin, lidocaine patch, Lantus insulin, IV heparin, sulcal fate
153/78, pulse 86, resp rate 14, afebrile, somewhat lethargic, children at bedside, head neck exam unremarkable, lungs diminished in bases, irregular rate and rhythm, no obvious murmurs, left lower extremity wrapped in Ricky, not much edema, JVD okay
Labs: Pending, hemoglobin was 9.1 yesterday, Creatinine was 2.9 yesterday, peaked at 4.3, was 3.8 yesterday, potassium 3.5 peak troponin was 0.528, proBNP was greater than 27,000 on admission
Objective
Labs:
Labs
Hgb 9.1 g/dL (13.0-18.0) L 02/09/25 16:47
Hct 26.6 % (39.0-52.0) L 02/09/25 16:47
Plt Count 206 10^3/uL (130-400) 02/09/25 16:47
PT 27.8 Sec (11.4-14.6) H 02/03/25 00:54
INR 2.59 02/03/25 00:54
APTT 46.0 Sec (23.4-35.0) H 02/10/25 00:17
Sodium 135 mmol/L (135-145) 02/09/25 03:52
Potassium 3.5 mmol/L (3.5-5.1) 02/09/25 03:52
BUN 44 mg/dl (9-20) H 02/09/25 03:52
Creatinine 2.9 mg/dL (0.7-1.3) H 02/09/25 03:52
Glucose 155 mg/dl (70-99) H 02/09/25 03:52
Vital Signs and I&O:
Vital Signs
Temp Pulse Resp BP Pulse Ox
36.9 C 86 14 153/78 95
02/10/25 07:40 02/10/25 04:05 02/10/25 04:05 02/10/25 04:05 02/10/25 00:00
Vital Signs
Temp Pulse Resp BP Pulse Ox
36.9 C 86 14 153/78 95
02/10/25 07:40 02/10/25 04:05 02/10/25 04:05 02/10/25 04:05 02/10/25 00:00
Intake & Output
02/08/25 02/09/25 02/10/25 02/11/25
07:59 07:59 07:59 07:59
Intake Total 0 / 0 570 / 570 720 / 720
Output Total 325 / 325
Balance 0 / 0 245 / 245 720 / 720
Physical Exam
Physical Exam
See above
[2025-02-10 09:15] LABS: APTT 45.4 Sec (23.4-35.0)
[2025-02-10 09:18] LABS: Glucose - Point of Care 166 mg/dl (70-99)
[2025-02-10] MEDS: NOVOLOG FLEXPEN-LOW RESISTANCE 1 UNITS SC (09:28)
[2025-02-10] MEDS: NOVOLOG FLEXPEN 3 UNITS SC ×3 (09:29→18:33)
--- NOTE | 2025-02-10 10:25 | W.PN.NEPH.PH ---
Today's Communication / Plan
-
For tunneled catheter today
HD tomorrow not today
Discussed with family and patient at bedside
Assessment/Plan
-
IMP:
TME
Septic shock
Lactic acidosis
Sepsis 2/2 to Diabetic left foot cellulitis w/ lymphangitis
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
Acute kidney injury-baseline cr 0.9-1.1
Peripheral artery disease
hyponatremia
IDDM 2
Essential hypertension
Constipation
A-fib�permanent
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
HLD
Obesity due to excess calories
Plan:
serologies unremarkable
HD tomorrow not today due to nursing staffing issues, no acute requirement
plan for temp to tunneled HD CVC today
there certainly could be some recovery of renal function, but would not let this possibility delay plans for rehab
holding Agram until renal recovery can be determined
From previous discussion They are concerned that he will have a difficult time processing negative information and would like to be the ones to relay clinical information to him if possible (short of patient asking a direct question regarding
prognosis)
-
-
Date of Service: February 10, 2025
CC / HPI / ROS
-
Chief Complaint:
JESUS
History of Present Illness:
Urine output improved
JESUS/HD tolerated HD Monday
BP stable
some po intake
Review of Systems:
Nonoliguric
no cp or sob noted
Weight stable
Labs
-
Labs:
eGFR 21.47 02/09/25 03:52
Phosphorus 4.7 mg/dl (2.5-4.5) H 02/04/25 16:14
Cwu-J-Eoagioofqdu Pept > 40886 pg/ml 02/01/25 20:16
Albumin 3.0 g/dl (3.5-5.0) L 02/04/25 16:14
Physical Exam
-
Vital Signs:
Vital Signs
Temp Pulse Resp BP Pulse Ox
98.4 F 87 12 157/90 95
02/10/25 07:40 02/10/25 08:00 02/10/25 08:00 02/10/25 06:00 02/10/25 00:00
Cardiovascular:: Regular rate and rhythm
Lung Excursion:: Normal
Abdomen:: Nontender and Soft
Bowel Sounds:: Normal
Extremity Edema:: None: Bilateral:
[2025-02-10 10:30] LABS: Hematocrit 28.8 % (39.0-52.0); Hemoglobin 9.6 g/dL (13.0-18.0); Mean Corp Hgb Conc. 33.3 g/dL (33.0-37.0); Mean Corpuscular Volume 88.9 fL (80.0-94.0); Nucleated Red Blood Cells % 0 % (-); Platelet Count 192 10^3/uL (130-400); Red Cell Dist. Width 14.8 % (11.5-14.5)
--- NOTE | 2025-02-10 10:41 | PHA.VAN.FU ---
Addendum entered and electronically signed by Jacinda Mccabe RPH 02/10/25 11:15:
Agree with assessment and plan.
Original Note:
Vancomycin Assessment / Plan
- Assessment
Hemodialysis Schedule: Other
WBC's are: Trending Down
In the past 24 hrs, patient has been: Afebrile
new start HD for JESUS
- Assessment - Therapeutic Drug Monitoring
Random Level: 16.8 - drawn ~45.5H after last dose of 750mg
- Dosing Plan
Dosing by Level: Hold off on dosing today (will redose tomorrow as this is an appropriate pre-HD level)
- Monitoring Plan
Monitoring Comments: follow inpatient HD schedule
- Follow Up
Pharmacy will continue to follow.
Vancomycin Follow UP
- -
Patient Age: 79
Patient Sex: Male
Vancomycin Day #: 13
Indication: Skin And Soft Tissue
Requesting Provider: Dr. Archer/Dr. Maguire
Pertinent Antimicrobial Allergies:
NKDA
Height / Weight:
Height 5 ft 9 in
Actual Weight 99.45 kg
Pertinent Past Medical History: BMI ~30.5, DM 2
- Vital Signs / Lab Results
Temp Pulse Resp BP Pulse Ox
98.4 F 87 12 157/90 95
02/10/25 07:40 02/10/25 08:00 02/10/25 08:00 02/10/25 06:00 02/10/25 00:00
Lab Results - Hematology
02/07/25 02/08/25 02/09/25
14:21 05:49 03:52
WBC 12.4 H 13.5 H 11.0 H
02/09/25 02/10/25
16:47 10:00
WBC 13.0 H 11.7 H
Lab Results - Chemistry
02/08/25 02/09/25
05:49 03:52
BUN 73 H 44 H
Creatinine 3.8 H 2.9 H
Estimated Creat Clear 19 24
Microbiology Results
02/03/25 21:30 Wound Culture - Final
Foot - Left Staph aureus MRSA
Gram Stain - Final
02/03/25 21:30 Anaerobic Culture - Final
Foot - Left NO ANAEROBES ISOLATED
Therapeutic Drug Monitoring
Random Vancomycin 16.8 ug/ml 02/10/25 10:00
--- NOTE | 2025-02-10 12:02 | W.PN.ID1 ---
Date of Service
Date of Service: February 10, 2025
Today's Communication
Continue Vancomycin.
Assessment / Plan
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
. spine stimulator incompatible with MRI.
# PAD, left 5th ischemic toe
. s/p CT angiogram
# s/p septic shock
# Leukocytosis overall improving
# Suspecting pneumonia/aspiration, s/p 7d cefepime
# Ileus
# JESUS
. HD started 02/02
. Urine eos neg
# DM2 with neuropathy
- Blood cx's neg. Ucx neg.
- Wound cx MRSA
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
OR cx's : MRSA
Bone path pending
- Continue Vancomycin, dosing by level
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
Diabetes mellitus type 2
Hypertension
Atrial fibrillation on Xarelto
pacemaker placement
Chronic pain with spinal stimulator, not active
Chronic left leg weakness due to history of back injury during lumbar procedure 2019
Lumbar laminectomy
Chief Complaint
-: Clinical Sepsis and Other (osteo of left fifth metatarsal)
Subjective / Review of Systems
No new complaints.
Vital Signs / Physical Exam
Vital Signs
Vital Signs
Temp Pulse Resp BP Pulse Ox
98.9 F 87 12 157/90 98
02/10/25 11:41 02/10/25 08:00 02/10/25 08:00 02/10/25 06:00 02/10/25 09:30
Physical Exam
Constitutional: Comfortable
Cardiovascular: Regular Rate and S1/S2
Gastrointestinal: Soft, Non Tender and Non Distended
Neurological: AO x 3
Objective Data
Lab Data
Lab Results
02/10/25 10:00
ESR 78 mm/hour (0-20) H 01/28/25 12:23
PT 27.8 Sec (11.4-14.6) H 02/03/25 00:54
INR 2.59 02/03/25 00:54
APTT 45.4 Sec (23.4-35.0) H 02/10/25 08:48
Estimated Creat Clear Cancelled 02/10/25 10:00
Lactic Acid 1.7 mmol/L (0.7-2.0) 02/05/25 00:53
Total Bilirubin 1.0 mg/dl (0.2-1.3) 02/04/25 16:14
AST 69 U/L (17-59) H 02/04/25 16:14
ALT 43 U/L (0-50) 02/04/25 16:14
Alkaline Phosphatase 115 U/L (38-126) 02/04/25 16:14
C-Reactive Protein 228.10 mg/L (0.0-10.00) H 01/28/25 12:23
Most recent labs reviewed.
Micro Results:
02/03/25 21:30 Wound Culture - Final
Foot - Left Staph aureus MRSA
Gram Stain - Final
02/03/25 21:30 Anaerobic Culture - Final
Foot - Left NO ANAEROBES ISOLATED
02/03/25 21:30 Tissue Culture - Final
Foot - Left Staph aureus MRSA
Gram Stain - Final
02/02/25 13:44 Urine Culture - Final
Urine NO GROWTH
01/29/25 04:07 Blood Culture - Final
Blood/Venous No Growth - Final Report
01/28/25 12:24 Blood Culture - Final
Blood/Venous No Growth - Final Report
01/31/25 09:04 Wound Culture - Final
Foot - Left Staph aureus MRSA
Gram Stain - Final
02/01/25 19:47 Influenza Types A & B (GIFTY) - Final
Nasal Swab Negative for Influenza A & B, NAAT
Negative results must be combined with clinical observations
and patient history.
Nucleic Acid Amplification test (NAAT)performed on the
[employer] platform.
01/30/25 10:04 Wound Culture - Final
Foot - Left Staph aureus MRSA
Gram Stain - Final
01/28/25 17:44 MRSA Screen - Final
Nose No Methicillin Resistant Staphylococcus aureus isolated.
Imaging:
01/28/25 Left foot XRAY: No acute osseous abnormality. Mild soft tissue swelling along the lateral forefoot.
02/01/25 CXR: Hazy increased density over the left lower hemithorax, probably mainly due to a posteriorly layering pleural effusion.
02/03/25 CXR: Parenchymal opacity within the right lower lung and the left mid to lower lung, similar to recent radiograph. Main differential considerations of atelectasis and/or pneumonia.
02/04/25 CT LE: 1. Interval amputation of the phalanges of the left 5th toe and the 5th metatarsal head since the prior exam performed 02/01/2025.
2. Large soft tissue wound distal to the 5th metatarsal with soft tissue emphysema extending deep to the lateral cortex of the 4th metatarsal head.
3. Moderate subcutaneous edema throughout the left lower leg and thigh.
4. Moderate to severe calcific atherosclerotic plaque throughout the left lower extremity.
5. Small to moderate-sized left knee joint effusion.
6. Severe anasarca in the left lateral abdominal wall.
7. Moderate retroperitoneal and extraperitoneal edema in the pelvis.
8. Severe diffuse urinary bladder wall thickening with adjacent perivesical inflammation suggesting ACUTE CYSTITIS. Chronic urinary bladder outlet obstruction is also likely present given severe enlargement of the prostate gland.
9. Mild circumferential wall thickening and fluid distention of the rectum suggesting an acute prostatitis. Rectal tube in place.
02/07/25 CXR/AXR: Extremely low lung volumes. Some bibasilar opacification which could represent atelectasis and/or pneumonia and small bilateral pleural effusions, left possibly greater than right. Air seen throughout small bowel, few loops
borderline prominent, nonspecific air-fluid levels, most likely representing ileus. No free air.
[2025-02-10 12:20] LABS: Glucose - Point of Care 144 mg/dl (70-99)
[2025-02-10] MEDS: NOVOLOG FLEXPEN-LOW RESISTANCE SC ×2 (12:35→17:51)
--- NOTE | 2025-02-10 12:39 | CM ---
Addendum entered by Liz Frey 02/10/25 13:45:
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
Call with Selene/jatin and she will review
Call with Sharon/Sil Kendall [phone]
She noted no clinics in [facility] with HD bed capabilities
She did note that all HD chairs recline with foot rest
Would reconsider for [place] location if PT provides note indicating that pt can tolerate 4 hours of HD in reclined chair
Also noted BLS crew would be responsible for chair transfers
[facility] are available but typically used for WC vans- unsure if pt would need to provide his own jewell sling
H& P faxed to Sharon per request [phone]
Original Note:
CM met with pt, dtr/Elizabeth, son/Gabriele and spouse/Aline on speaker phone
Call with Sharon/[facility] intake [phone] ext. [phone] and Wen with [place] [facility]
Pt has been denied at [place] location as they do not provide bed HD, only chair HD and concern noted for tolerance of upright position for 4 hours
Pt has also been denied at all SNF referrals ([facility], [facility], [facility], and ) due to HD needs and they will not transport to outpt clinic
PAC provided and reviewed all local SNFs with HD capability
Spouse requesting referral to [facility] due to location
Referral sent via [facility] and pending
Pt and family made aware that dispo can be reassessed if gains made during therapy
Pt remains on contact precautions for MRSA+
Discharge Disposition- SNF with HD, referral pending to [facility]
[2025-02-10 12:45] LABS: Blood Urea Nitrogen 53 mg/dl (9-20); Calcium 7.9 mg/dl (8.4-10.2); Carbon Dioxide 28 mmol/L (22-30); Chloride 101 mmol/L (98-107); Estimated Creatinine Clearance 21 ml/min; Glucose 153 mg/dl (70-99); Potassium 3.5 mmol/L (3.5-5.1); Sodium 135 mmol/L (135-145); eGFR 18.39
[2025-02-10] MEDS: ZOFRAN 4 MG IV (13:00)
--- NOTE | 2025-02-10 13:09 | W.PN.UPDATE ---
Update Note
Progress Note Update
Communicated with hospitalist over the weekend. Mr. Daniels is showing some signs of renal recovery. Will hold on a'gram until renal recovery trajectory can be better determined.
Continue local wound care to foot
ABX
Call with questions/concerns
[id number]
Vascular Surgery
--- NOTE | 2025-02-10 14:14 | W.PN.GI.CBS2 ---
Today's Communication / Plan
-
continue PPI/carafate
advance diet as tolerated
Assessment / Plan
-
Summary: 79yo male admitted with sepsis due to L foot infection requiring I&D 01/31 and amputation 5th digit 02/03, ARF requiring dialysis, transfer to ICU 02/02 due to severe sepsis requiring pressors, n/v requiring NGT placement 02/03 AXR showed
moderate/large amount of gaseous distention of stomach, no other dilated loops bowel. NGT drained significant gastric fluid then pt removed after couple days. Tried on diet but eating minimal amounts. Speech eval noted inability to tolerate more
than couple bites puree
Impression:
acute GI bleeding -patien on heparin ( stopped and restarted now ) . Hb relatively stable. Likely etiology-esophagitis versus peptic ulcer disease
GOO vs ileus.
Possible stress ulcers due to severe sepsis
L foot infection
ARF/HD
Afib on xarelto OP
Paroxysmal complete heart block s/p pacer
abd x ray 02/08/2025
Air seen throughout small bowel, few loops borderline prominent, nonspecific air-fluid levels, most likely representing ileus. No free air.
Recommendations:
Tolerating clear liquid diet. Improvement after PPI. Carafate added
Continue Protonix IV twice daily
Okay to advance diet as tolerated if cleared by speech
heparin drip started as per cardio recommendations. continue monitor H/H
Holding off EGD with improvement of symptoms
No further recommendations. will s/o. please call us back if any questions
Total Time Spent with Patient (in minutes): 35
Subjective
Subjective
Date of Service: February 10, 2025
Feeling better. Did not like Carafate tablets. Changed to slurry. no bleeding
Objective
Data Reviewed
Laboratory Data:
Laboratory Results
02/10/25 10:00
02/10/25 11:36
Laboratory Results
PT 27.8 Sec (11.4-14.6) H 02/03/25 00:54
INR 2.59 02/03/25 00:54
APTT 45.4 Sec (23.4-35.0) H 02/10/25 08:48
Phosphorus 4.7 mg/dl (2.5-4.5) H 02/04/25 16:14
Magnesium 1.9 mg/dl (1.6-2.3) 02/04/25 16:14
Total Bilirubin 1.0 mg/dl (0.2-1.3) 02/04/25 16:14
AST 69 U/L (17-59) H 02/04/25 16:14
ALT 43 U/L (0-50) 02/04/25 16:14
Alkaline Phosphatase 115 U/L (38-126) 02/04/25 16:14
Vital Signs and I&O:
Vital Signs
Temp Pulse Resp BP Pulse Ox
97.5 F 96 19 146/83 98
02/10/25 14:05 02/10/25 14:05 02/10/25 14:05 02/10/25 14:05 02/10/25 09:30
I&O
02/09/25 02/10/25 02/11/25
06:59 06:59 06:59
Intake Total 450 / 450 840 / 840
Output Total 325 / 325
Balance 450 / 450 515 / 515
Physical Exam
Physical Exam
GI: Soft, Non Distended and Non Tender
--- NOTE | 2025-02-10 16:11 | PTCARENOTE ---
pt returned to IMU from IR [facility] having HD cath placed. Pt AAOx3, drowsy, able to make needs known. Call cervantes within reach. Pt states nausea resolved after zofran.
[2025-02-10] MEDS: CARAFATE SUSPENSION PO (16:15)
[2025-02-10 17:24] LABS: Glucose - Point of Care 126 mg/dl (70-99)
[2025-02-10] MEDS: STERILE WATER FOR INJECTION IV (17:52)
[2025-02-10] MEDS: HEPARIN 25000 UNITS/250 ML IV (19:50)
[2025-02-10] MEDS: NOVOLOG FLEXPEN-LOW RESISTANCE 300 UNITS SC (21:30)
[2025-02-10] MEDS: LANTUS 0.15 UNITS SC (21:30)
[2025-02-10] MEDS: REMOVE LIDOCAINE PATCH 1 PATCH REMOVE (21:40)
[2025-02-10 21:41] LABS: Glucose - Point of Care 153 mg/dl (70-99)
[2025-02-10 22:40] LABS: APTT 150.0 Sec (23.4-35.0)
--- NOTE | 2025-02-10 23:25 | PTCARENOTE ---
Pt drowsy, but oriented. Maintained on heparin gtt, see worklist for titrations. Pt denies complaints at this time. Afib on CM with controlled rate. VSS. Call cervantes within reach.
[2025-02-11] VITALS (29 sets, daily range): BP systolic 138–169; BP diastolic 64–134; PULSE 86–90; BMI 31.8
--- NOTE | 2025-02-11 03:34 | PTCARENOTE ---
Pt with 2 consecutive episodes of VT, 9 beats each. COMMUNITY RELATIONS ADVISOR notified. Pt remains asymptomatic.
[2025-02-11 06:19] LABS: Hematocrit 24.3 % (39.0-52.0); Hemoglobin 8.3 g/dL (13.0-18.0); Mean Corp Hgb Conc. 34.2 g/dL (33.0-37.0); Mean Corpuscular Volume 86.8 fL (80.0-94.0); Nucleated Red Blood Cells % 0 % (-); Platelet Count 174 10^3/uL (130-400); Red Cell Dist. Width 14.7 % (11.5-14.5)
[2025-02-11 06:27] LABS: APTT 56.1 Sec (23.4-35.0)
[2025-02-11 06:44] LABS: Albumin 2.7 g/dl (3.5-5.0); Blood Urea Nitrogen 57 mg/dl (9-20); Calcium 8.1 mg/dl (8.4-10.2); Carbon Dioxide 25 mmol/L (22-30); Chloride 102 mmol/L (98-107); Estimated Creatinine Clearance 19 ml/min; Glucose 168 mg/dl (70-99); Magnesium 1.8 mg/dl (1.6-2.3); Potassium 3.5 mmol/L (3.5-5.1); Sodium 135 mmol/L (135-145); eGFR 16.56
--- NOTE | 2025-02-11 08:45 | W.PN.NEPH.HD ---
Assessment
-
Patient seen on dialysis
Systolic blood pressure stable at 162 at current UF of 2 kg
Tunneled catheter functioning well placed on 02/10/2025
Unfortunately creatinine continues to rise and was up to 3.6 today and patient will still require ongoing hemodialysis
Next dialysis will be planned for 02/13/2025
Progress Note - Hemodialysis
-
Date of Service: February 11, 2025
Duration: 30 minutes and 3 hours
Potassium Bath: 4 (Changed to 4K bath snf through treatment)
Calcium Bath: 2.5
Opti-Dialyzer: 160
Ultrafiltration: Other (2kilogram UF due to edema)
Blood Flow: 400
Dialysate Flow: 600
Heparin: None
EPO: 6000
[2025-02-11] MEDS: RETACRIT 6000 UNITS IV (09:00)
[2025-02-11] MEDS: NOVOLOG FLEXPEN SC (09:18)
[2025-02-11] MEDS: LIDOCAINE 4% PATCH 1 PATCH TOPICAL (09:18)
[2025-02-11] MEDS: CARAFATE SUSPENSION 1 GM PO ×4 (09:18→21:10)
[2025-02-11] MEDS: NSS (PRESERVATIVE FREE) 10 ML IV ×2 (09:19→21:11)
--- NOTE | 2025-02-11 09:25 | W.PN.HOSP.TC ---
Today's Communication/Plan
-
Transfuse PRBCs to maintain Hgb>8
See plan
Assessment / Plan
Assessment / Plan
Physical Exam
Gen-awake, alert, NAD
HEENT-NC, AT, anicteric, clear oral mm
Neck-supple
CV-reg, no M, +S1/S2
Lungs-clear B/L
Abd-soft, NT, ND
Ext-mild left upper extremity edema
Musculoskeletal-no cyanosis, clubbing, left foot dressing intact
Skin-warm and dry
Neuro-grossly non-focal
Psych-calm, cooperative
Assessment/Plan
Aspiration pneumonitis/acute hypoxic respiratory failure -triggered by vomiting, possibly triggered by ileus. Oxygenation improved, now on room air.
Acute TME -due to sepsis, shock, critical illness. Mental status appears back to baseline.
Septic shock - due to to left fifth metatarsal abscess, acute osteomyelitis.
-IV vancomycin per ID.
Shock resolved. Off vasopressors. Blood cultures negative so far. Wound culture shows MRSA.
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
Leukocytosis improved overall. Afebrile.
Unable to have MRI due to spinal stimulator not active
Wound culture grew MRSA
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 Podiatry following. Follow Pathology from bone margins. Wound culture from the OR shows MRSA.
PAD
-CT angiogram done 02/01 shows multifocal atherosclerotic disease throughout the bilateral lower extremities. Diminished flow in the left anterior tibial artery with some apparent distal reconstitution, diminished flow at the distal aspect of the
left peroneal artery at the level of the ankle. Short segment high-grade stenosis of the distal right SFA.
Vascular surgery having ongoing discussions with family regarding goals of care and decision for left lower extremity revascularization with potential risk for further renal deterioration.
Possibly will have angiogram next week depending on renal function.
Lactic acidosis due to sepsis/shock -lactic acid now normalized.
Differential diagnosis include metformin induced versus worsening sepsis
Metformin discontinued 02/01
MAP has been consistently greater than 65
Acute kidney injury -due to septic shock. Anuric. Gonzalez catheter was placed. Etiology of JESUS most likely due to septic shock and medications and less likely due to contrast-induced nephropathy as contrast exposure was on 02/01, creatinine was 3.3
morning of 02/01.
Appreciate nephrology input, dialysis started 02/02. Dialysis IJ catheter was placed.
High anion gap metabolic acidosis due to septic shock, lactic acidosis. Metabolic acidosis resolved. Off sodium bicarbonate IV.
Hold metformin, lisinopril, hydrochlorothiazide, trend creatinine, no nephrotoxic drugs or NSAIDs
Hemodialysis as per nephrology
Holding angiogram until renal recovery can be determined
Ileus - developed nausea and vomiting on 02/03. Briefly treated with NG tube.
Repeat x-ray 02/07 showed air throughout the small bowel, few loops borderline prominent, nonspecific air-fluid levels, most likely ileus. No free air.
Continue current diet with clear liquids. Awaiting speech therapy input regarding diet advancement.
Acute GI bleed - exacerbated by anticoagulation with IV heparin. Cannot rule out stress ulcer. Bowel movement on 02/07/25 was blood-tinged and burgundy. GI following.
Continue Protonix IV twice daily. No urgent need for endoscopy currently. Transfuse Hgb to maintain Hgb>8.
May have a component of esophagitis, patient states he feels better now on Protonix.
Acute blood loss anemia - due to GI bleed as above. Hemoglobin down to 8.3 today. Monitor closely. Admission hemoglobin was 11.6. May have baseline chronic anemia of unclear etiology. Transfuse Hgb to maintain Hgb>8.
Anemia of Chronic Kidney Disease - nephrology following and placed EPO order
Dysphagia - unknown acuity. Suspect related to critical illness, possible esophagitis. Speech therapist re-evaluation.
LUE edema - Doppler ultrasound negative for DVT.
Acute on chronic heart failure with preserved ejection fraction
Cardiology following, continue dialysis as per nephrology
Troponin elevation - suspect acute nonischemic myocardial injury due to septic shock. Troponins trended down.
Permanent atrial fibrillation with rapid ventricular response
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
-Continue Heparin Drip. Was on Xarelto prior to admission.
Known moderate nonobstructive coronary disease in 2021
-Continue statin
2 consecutive episodes of VT overnight 02/10/25 to 02/11/25
-Cardiology following
-Monitor in IMU
Hyponatremia - resolved.
Hyperphosphatemia - due to JESUS. Improving. Recheck phosphorus.
DM 2 with hyperglycemia -at home he was on insulin degludec 24 units at bedtime, NovoLog sliding scale with meals, metformin.
Hemoglobin A1c 7.1 on 01/13/2025
Hold metformin 1000 mg daily due to JESUS
-Continue Lantus 15 units at bedtime. Change aspart to 3 units before meals. Low resistance corrective scale.
Essential hypertension - antihypertensive meds on hold for hypotension, shock (except for PRN beta boy if patient develops tachycardia for HR>120 bpm)
Hyperlipidemia - was on lovastatin prior to admission -- continue this or equivalent statin for it's cardioprotective effects and hyperlipidemia history
Obesity due to excess calories
DVT prophylaxis -SCDs. Heparin Drip.
Full code
PT/OT -Eventual SNF when medically stable.
Anticipated Discharge: > 48 hours
Subjective/Interval History
-
Date of Service: February 11, 2025
Patient was seen and examined. He appeared to be doing okay, no new significant symptoms.
Objective Data
-
Labs:
Laboratory Results
02/10/25 02/11/25 02/11/25
21:54 05:56 14:00
WBC 11.1 H
Hgb 8.3 L
Hct 24.3 L
Plt Count 174
APTT 150.0 H 56.1 H Pending
Sodium 135
Potassium 3.5
Chloride 102
Carbon Dioxide 25
BUN 57 H
Creatinine 3.6 H
Glucose 168 H
Calcium 8.1 L
Vital Signs:
Vital Signs
Temp Pulse Resp BP Pulse Ox
98.2 F 91 13 159/92 93
02/11/25 07:37 02/11/25 04:00 02/11/25 04:00 02/11/25 04:00 02/11/25 00:00
I&O
02/10/25 02/11/25 02/12/25
06:59 06:59 06:59
Intake Total 840 / 840 420 / 420
Output Total 325 / 325 200 / 200
Balance 515 / 515 220 / 220
[2025-02-11] MEDS: NOVOLOG FLEXPEN-LOW RESISTANCE SC ×3 (09:31→17:31)
[2025-02-11] MEDS: PROTONIX IV 40 MG IV ×2 (09:33→21:11)
--- NOTE | 2025-02-11 09:38 | PHA.VAN.FU ---
Addendum entered and electronically signed by Jacinda Mccabe Aidan 02/11/25 09:47:
Agree with assessment and plan
Original Note:
Vancomycin Assessment / Plan
- Assessment
Hemodialysis Schedule: Other
WBC's are: Trending Down
In the past 24 hrs, patient has been: Afebrile
- Dosing Plan
Dosing by Level: Re-dose today (give 750mg x1 dose post-HD)
- Monitoring Plan
No level(s) ordered at this time: to be drawn before next HD session 02/13
- Follow Up
Pharmacy will continue to follow.
Vancomycin Follow UP
- -
Patient Age: 79
Patient Sex: Male
Vancomycin Day #: 14
Indication: Skin And Soft Tissue
Requesting Provider: Dr. Archer/Dr. Maguire
Pertinent Antimicrobial Allergies:
NKDA
Height / Weight:
Height 5 ft 9 in
Actual Weight 97.5 kg
Pertinent Past Medical History: BMI ~30.5, DM 2
- Vital Signs / Lab Results
Temp Pulse Resp BP Pulse Ox
98.2 F 91 13 159/92 93
02/11/25 07:37 02/11/25 04:00 02/11/25 04:00 02/11/25 04:00 02/11/25 00:00
Lab Results - Hematology
02/09/25 02/09/25 02/10/25
03:52 16:47 10:00
WBC 11.0 H 13.0 H 11.7 H
02/11/25
05:56
WBC 11.1 H
Lab Results - Chemistry
02/09/25 02/10/25 02/10/25
03:52 10:00 11:36
BUN 44 H Cancelled 53 H
Creatinine 2.9 H Cancelled 3.3 H
Estimated Creat Clear 24 Cancelled 21
Albumin
02/11/25
05:56
BUN 57 H
Creatinine 3.6 H
Estimated Creat Clear 19
Albumin 2.7 L
Microbiology Results
02/03/25 21:30 Wound Culture - Final
Foot - Left Staph aureus MRSA
Gram Stain - Final
02/03/25 21:30 Anaerobic Culture - Final
Foot - Left NO ANAEROBES ISOLATED
Therapeutic Drug Monitoring
Random Vancomycin 16.8 ug/ml 02/10/25 10:00
[2025-02-11 09:41] LABS: Glucose - Point of Care 129 mg/dl (70-99)
--- NOTE | 2025-02-11 09:46 | W.PN.CARDCBS ---
Today's Communication / Plan
-
Pt receiving HD
HR and bp stable.
He had short NSVT on tele. EF is preserved. Cont electrolyte management as per nephrology.
Cont IV Heparin, transition to oral anticoagulation once no further procedures planned.
Receiving transfusion as per primary service to support H/H
Impression / Plan
-
.
PCP: Dr. Roman Macedo
[facility]: Dr. Munoz
Impression:
Admitted with LLE/left foot cellulitis 01/28/2025
Sepsis related to above
JESUS requiring hemodialysis
Peripheral vascular disease status post left partial fifth ray amputation 02/03/2025
Diabetes mellitus type 2
Hypertension
Permanent atrial fibrillation, RVR
Acute on chronic HFpEF
Dyslipidemia
Obesity
Paroxysmal complete heart block status post dual-chamber pacemaker 2021 ([employer])
Echo 08/2021: EF 55-60, mild concentric LVH, small pericardial effusion
Echo 10/2024: EF 65%, mild MS, mild with gradient 10 mmHg, PASP 30 mmHg
Echo 02/02/2025: EF 60 to 65%, stage II diastolic dysfunction, normal RV size and function
LHC 09/07/21: LAD is on the smaller side and is calcified with diffuse disease and reaches the apex. The second OM is small and has a 40% ostial stenosis. The distal OM 3 inferior branch has an ostial 50% stenosis. RCA has mid 50% stenosis. Given that
this was the area that was positive and the stress test it was decided to proceed with IFR. iFRs of this lesion were serially negative around 0.92 indicating a nonobstructive lesion. Conclusions: moderate nonobstructive coronary atherosclerosis,
normal LV function, mild .
Plan:
Pt receiving HD
HR and bp stable.
He had short NSVT on tele. EF is preserved. Cont electrolyte management as per nephrology.
Cont IV Heparin, transition to oral anticoagulation once no further procedures planned.
Receiving transfusion as per primary service to support H/H
Discussed with family at bedside.
HPI: Patient is a pleasant 71-year-old male with a past medical history significant for permanent atrial fibrillation, paroxysmal complete heart block status post dual-chamber pacemaker 2021, hypertension, hyperlipidemia, diabetes mellitus, prior
syncope, nerve stimulator, osteoarthritis who initially presented due to worsening lower extremity infection. Patient was noted to have significant atherosclerosis of bilateral lower extremities. Patient's renal function began to worsen and
patient with significant leukocytosis. Patient and family had reported increasing shortness of breath, decreased oral intake, and nausea. Since admission, patient undergoing treatment of infection with IV antibiotics however, renal function
continued to worsen. Patient underwent implant of dialysis catheter on 02/02/2025 with initiation of hemodialysis. Cardiology consulted due to elevated troponin and elevated BNP. Patient's initial troponin was noted to be 0.5 which is down trended
to 0.35 and 0.315. In discussion with patient and family, he notes some intermittent variable chest discomfort which occasionally occurs with position changes and at rest but no reported chest pain with activity or exertion. Prior to admission,
patient was active and denied chest pain shortness of breath or palpitations with activity or exertion. Additionally, patient's BNP checked on 02/01/2025 was greater than 27,000. Patient is a non-smoker, no alcohol, no illicits. Patient without
significant family history.
Progress Note - [facility]
Subjective
Date of Service: February 11, 2025
Pt seen and examined. No complaints. No chest pain or shortness of breath.
Objective
Labs:
02/11/25 05:56
02/11/25 05:56
Labs
Hgb 8.3 g/dL (13.0-18.0) L 02/11/25 05:56
Hct 24.3 % (39.0-52.0) L 02/11/25 05:56
Plt Count 174 10^3/uL (130-400) 02/11/25 05:56
PT 27.8 Sec (11.4-14.6) H 02/03/25 00:54
INR 2.59 02/03/25 00:54
APTT 56.1 Sec (23.4-35.0) H 02/11/25 05:56
Sodium 135 mmol/L (135-145) 02/11/25 05:56
Potassium 3.5 mmol/L (3.5-5.1) 02/11/25 05:56
BUN 57 mg/dl (9-20) H 02/11/25 05:56
Creatinine 3.6 mg/dL (0.7-1.3) H 02/11/25 05:56
Glucose 168 mg/dl (70-99) H 02/11/25 05:56
Vital Signs and I&O:
Vital Signs
Temp Pulse Resp BP Pulse Ox
98.2 F 91 13 159/92 93
02/11/25 07:37 02/11/25 04:00 02/11/25 04:00 02/11/25 04:00 02/11/25 00:00
Vital Signs
Temp Pulse Resp BP Pulse Ox
98.2 F 91 13 159/92 93
02/11/25 07:37 02/11/25 04:00 02/11/25 04:00 02/11/25 04:00 02/11/25 00:00
Intake & Output
02/09/25 02/10/25 02/11/25 02/12/25
06:59 06:59 06:59 06:59
Intake Total 450 / 450 840 / 840 420 / 420
Output Total 325 / 325 200 / 200
Balance 450 / 450 515 / 515 220 / 220
Physical Exam
Physical Exam
General: No acute distress, AAOX3
Neck: Negative JVD
Heart: Irregularly irregular, Negative S3 positive S1/S2, Negative S4, No murmur
Lungs: CTA b/l, negative wheezes/rales/rhonchi
Abd: Positive BS, NT/ND, neg rebound/rigidity/guarding
Ext: Negative cyanosis/clubbing/edema
Neuro: nonfocal
--- NOTE | 2025-02-11 09:51 | W.PN.ID1 ---
Date of Service
Date of Service: February 11, 2025
Today's Communication
Continue Vancomcyin.
Assessment / Plan
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
. spine stimulator incompatible with MRI.
# PAD, left 5th ischemic toe
. s/p CT angiogram
# s/p septic shock
# Leukocytosis resolving
# Ileus
# JESUS
. HD started 02/02
. Urine eos neg
# Suspected pneumonia/aspiration, completed 7d cefepime
# DM2 with neuropathy
- Blood cx's neg. Ucx neg.
- Wound cx MRSA
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
OR cx's : MRSA
Bone path pending
- Continue Vancomycin, dosing by level
# Conditions COOK BARBECUE
Diabetes mellitus type 2
Hypertension
Atrial fibrillation on Xarelto
pacemaker placement
Chronic pain with spinal stimulator, not active
Chronic left leg weakness due to history of back injury during lumbar procedure 2019
Lumbar laminectomy
Chief Complaint
-: Clinical Sepsis and Other (osteo of left fifth metatarsal)
Subjective / Review of Systems
No new complaints.
Vital Signs / Physical Exam
Vital Signs
Vital Signs
Temp Pulse Resp BP Pulse Ox
98.2 F 91 13 159/92 93
02/11/25 07:37 02/11/25 04:00 02/11/25 04:00 02/11/25 04:00 02/11/25 00:00
Physical Exam
Constitutional: No Acute Distress and Comfortable
Cardiovascular: Regular Rate and S1/S2
Gastrointestinal: Soft, Non Tender and Non Distended
Wound: Other (Left foot dressing dry)
Neurological: AO x 3
Lines: HD Cath
Objective Data
Lab Data
Lab Results
02/11/25 05:56
02/11/25 05:56
ESR 78 mm/hour (0-20) H 01/28/25 12:23
PT 27.8 Sec (11.4-14.6) H 02/03/25 00:54
INR 2.59 02/03/25 00:54
APTT 56.1 Sec (23.4-35.0) H 02/11/25 05:56
Estimated Creat Clear 19 ml/min 02/11/25 05:56
Lactic Acid 1.7 mmol/L (0.7-2.0) 02/05/25 00:53
Total Bilirubin 1.0 mg/dl (0.2-1.3) 02/04/25 16:14
AST 69 U/L (17-59) H 02/04/25 16:14
ALT 43 U/L (0-50) 02/04/25 16:14
Alkaline Phosphatase 115 U/L (38-126) 02/04/25 16:14
C-Reactive Protein 228.10 mg/L (0.0-10.00) H 01/28/25 12:23
Most recent labs reviewed.
Micro Results:
02/03/25 21:30 Wound Culture - Final
Foot - Left Staph aureus MRSA
Gram Stain - Final
02/03/25 21:30 Anaerobic Culture - Final
Foot - Left NO ANAEROBES ISOLATED
02/03/25 21:30 Tissue Culture - Final
Foot - Left Staph aureus MRSA
Gram Stain - Final
02/02/25 13:44 Urine Culture - Final
Urine NO GROWTH
01/29/25 04:07 Blood Culture - Final
Blood/Venous No Growth - Final Report
01/28/25 12:24 Blood Culture - Final
Blood/Venous No Growth - Final Report
01/31/25 09:04 Wound Culture - Final
Foot - Left Staph aureus MRSA
Gram Stain - Final
02/01/25 19:47 Influenza Types A & B (GIFTY) - Final
Nasal Swab Negative for Influenza A & B, NAAT
Negative results must be combined with clinical observations
and patient history.
Nucleic Acid Amplification test (NAAT)performed on the
[employer] platform.
01/30/25 10:04 Wound Culture - Final
Foot - Left Staph aureus MRSA
Gram Stain - Final
01/28/25 17:44 MRSA Screen - Final
Nose No Methicillin Resistant Staphylococcus aureus isolated.
Imaging:
01/28/25 Left foot XRAY: No acute osseous abnormality. Mild soft tissue swelling along the lateral forefoot.
02/01/25 CXR: Hazy increased density over the left lower hemithorax, probably mainly due to a posteriorly layering pleural effusion.
02/03/25 CXR: Parenchymal opacity within the right lower lung and the left mid to lower lung, similar to recent radiograph. Main differential considerations of atelectasis and/or pneumonia.
02/04/25 CT LE: 1. Interval amputation of the phalanges of the left 5th toe and the 5th metatarsal head since the prior exam performed 02/01/2025.
2. Large soft tissue wound distal to the 5th metatarsal with soft tissue emphysema extending deep to the lateral cortex of the 4th metatarsal head.
3. Moderate subcutaneous edema throughout the left lower leg and thigh.
4. Moderate to severe calcific atherosclerotic plaque throughout the left lower extremity.
5. Small to moderate-sized left knee joint effusion.
6. Severe anasarca in the left lateral abdominal wall.
7. Moderate retroperitoneal and extraperitoneal edema in the pelvis.
8. Severe diffuse urinary bladder wall thickening with adjacent perivesical inflammation suggesting ACUTE CYSTITIS. Chronic urinary bladder outlet obstruction is also likely present given severe enlargement of the prostate gland.
9. Mild circumferential wall thickening and fluid distention of the rectum suggesting an acute prostatitis. Rectal tube in place.
02/07/25 CXR/AXR: Extremely low lung volumes. Some bibasilar opacification which could represent atelectasis and/or pneumonia and small bilateral pleural effusions, left possibly greater than right. Air seen throughout small bowel, few loops
borderline prominent, nonspecific air-fluid levels, most likely representing ileus. No free air.
[2025-02-11] MEDS: HEPARIN 4300 UNITS INTRACATH (11:59)
[2025-02-11] MEDS: NOVOLOG FLEXPEN 3 UNITS SC ×2 (12:16→17:38)
[2025-02-11] MEDS: VANCOCIN 150 IV (12:23)
[2025-02-11 12:26] LABS: Glucose - Point of Care 125 mg/dl (70-99)
[2025-02-11 14:36] LABS: Hematocrit 25.6 % (39.0-52.0); Hemoglobin 8.7 g/dL (13.0-18.0)
[2025-02-11 14:48] LABS: APTT 117.8 Sec (23.4-35.0)
--- NOTE | 2025-02-11 15:12 | CM ---
CM reviewed chart- ADC>48 hours, pt remains in IMU
[facility] will likely accept pending DON approval of tunnel cath report which was sent day prior
Referral to [facility] pending
Call from Venita/[facility] [place] [phone]
Referral will remain pending at [facility]
She noted HD chairs similar to dominic-chair with reclining ability and arm rests
Update to dtr and spouse at nurse's station
Discharge Disposition- anticipate [facility] vs [facility] with transport and outpt HD at [facility]
--- NOTE | 2025-02-11 15:58 | PTCARENOTE ---
Rec'd pt this AM. continues to complain about labs being drawn. Midline has no blood return. RN provided education to family and pt regarding this. Pt educated about need for labs and peripheral sticks. x3 assist to stand at bedside. Incontinent of
large BM. voids in urinal. vital signs stable.
--- NOTE | 2025-02-11 16:59 | W.PN.UPDATE ---
Update Note
Progress Note Update
I received [place] Text from Speech and Swallow specialist Valeri Fraga - she recommended continuing patient on puree and thin liquids diet.
According to Valeri, solid trials were held due to patient's report of increased pain in chest following applesauce.
[2025-02-11] MEDS: HEPARIN 25000 UNITS/250 ML IV (17:25)
[2025-02-11 17:37] LABS: Glucose - Point of Care 146 mg/dl (70-99)
[2025-02-11] MEDS: LIPITOR 10 MG PO (17:39)
[2025-02-11] MEDS: STERILE WATER FOR INJECTION IV (17:49)
[2025-02-11] MEDS: NOVOLOG FLEXPEN-LOW RESISTANCE 1 UNITS SC (21:10)
[2025-02-11] MEDS: LANTUS 0.15 UNITS SC (21:11)
[2025-02-11] MEDS: REMOVE LIDOCAINE PATCH 1 PATCH REMOVE (21:11)
[2025-02-11 21:20] LABS: Glucose - Point of Care 197 mg/dl (70-99)
[2025-02-11 22:23] LABS: APTT 90.9 Sec (23.4-35.0)
[2025-02-12] VITALS (9 sets, daily range): BP systolic 142–170; BP diastolic 71–86; BMI 31.8
[2025-02-12 05:23] LABS: Hematocrit 24.8 % (39.0-52.0); Hemoglobin 8.4 g/dL (13.0-18.0); Mean Corp Hgb Conc. 33.9 g/dL (33.0-37.0); Mean Corpuscular Volume 89.2 fL (80.0-94.0); Nucleated Red Blood Cells % 0 % (-); Platelet Count 180 10^3/uL (130-400); Red Cell Dist. Width 14.7 % (11.5-14.5)
[2025-02-12 05:29] LABS: APTT 71.5 Sec (23.4-35.0)
[2025-02-12 05:46] LABS: ALT (SGPT) 20 U/L (0-50); AST (SGOT) 21 U/L (17-59); Albumin 2.7 g/dl (3.5-5.0); Alkaline Phosphatase 135 U/L (38-126); Blood Urea Nitrogen 29 mg/dl (9-20); Calcium 7.6 mg/dl (8.4-10.2); Carbon Dioxide 27 mmol/L (22-30); Chloride 102 mmol/L (98-107); Estimated Creatinine Clearance 29 ml/min; Glucose 169 mg/dl (70-99); Potassium 3.6 mmol/L (3.5-5.1); Sodium 135 mmol/L (135-145); Total Protein 5.6 g/dl (6.3-8.2); eGFR 26.94
--- NOTE | 2025-02-12 07:44 | PTCARENOTE ---
No acute events overnight. Dressing to LLE dry and intact. CHG bath completed. Will continue to monitor.
[2025-02-12] MEDS: CARAFATE SUSPENSION 1 GM PO ×4 (07:59→21:34)
[2025-02-12] MEDS: NSS (PRESERVATIVE FREE) 10 ML IV ×2 (07:59→20:54)
[2025-02-12] MEDS: PROTONIX IV 40 MG IV ×2 (07:59→20:54)
[2025-02-12] MEDS: LIDOCAINE 4% PATCH 1 PATCH TOPICAL (08:00)
--- NOTE | 2025-02-12 08:17 | PHA.VAN.FU ---
Addendum entered and electronically signed by Jacinda Mccabe [facility] 02/12/25 08:29:
Agree with assessment and plan
Original Note:
Vancomycin Assessment / Plan
- Assessment
Hemodialysis Schedule: Other
WBC's are: WNL
In the past 24 hrs, patient has been: Afebrile
- Dosing Plan
Dosing by Level: Hold off on dosing today
- Monitoring Plan
Random Level: 02/13 0600
- Follow Up
Pharmacy will continue to follow.
Vancomycin Follow UP
- -
Patient Age: 79
Patient Sex: Male
Vancomycin Day #: 15
Indication: Skin And Soft Tissue
Requesting Provider: Dr. Archer/Dr. Maguire
Pertinent Antimicrobial Allergies:
NKDA
Height / Weight:
Height 5 ft 9 in
Actual Weight 97.5 kg
Pertinent Past Medical History: BMI ~30.5, DM 2
- Vital Signs / Lab Results
Temp Pulse Resp BP Pulse Ox
98.1 F 87 16 156/71 95
02/12/25 06:09 02/12/25 08:02 02/12/25 08:02 02/12/25 08:02 02/12/25 08:10
Lab Results - Hematology
02/09/25 02/10/25 02/11/25
16:47 10:00 05:56
WBC 13.0 H 11.7 H 11.1 H
02/12/25
05:02
WBC 9.6
Lab Results - Chemistry
02/10/25 02/10/25 02/11/25
10:00 11:36 05:56
BUN Cancelled 53 H 57 H
Creatinine Cancelled 3.3 H 3.6 H
Estimated Creat Clear Cancelled
Albumin 2.7 L
02/12/25
05:02
BUN 29 H
Creatinine 2.4 H
Estimated Creat Clear 29
Albumin 2.7 L
Therapeutic Drug Monitoring
Random Vancomycin 16.8 ug/ml 02/10/25 10:00
--- NOTE | 2025-02-12 09:37 | W.PN.CARDCBS ---
Today's Communication / Plan
-
Add back beta boy
Transition from IV heparin to OAC when able
We will sign off, please recall as needed
Impression / Plan
-
PCP: Dr. Roman Macedo
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
Impression:
Admitted with LLE/left foot cellulitis 01/28/2025
Sepsis related to above
JESUS requiring hemodialysis
Peripheral vascular disease status post left partial fifth ray amputation 02/03/2025
Diabetes mellitus type 2
Hypertension
Permanent atrial fibrillation, RVR
Acute on chronic HFpEF
Dyslipidemia
Obesity
Paroxysmal complete heart block status post dual-chamber pacemaker 2021 ([employer])
Echo 08/2021: EF 55-60, mild concentric LVH, small pericardial effusion
Echo 10/2024: EF 65%, mild MS, mild with gradient 10 mmHg, PASP 30 mmHg
Echo 02/02/2025: EF 60 to 65%, stage II diastolic dysfunction, normal RV size and function
LHC 09/07/21: LAD is on the smaller side and is calcified with diffuse disease and reaches the apex. The second OM is small and has a 40% ostial stenosis. The distal OM 3 inferior branch has an ostial 50% stenosis. RCA has mid 50% stenosis. Given that
this was the area that was positive and the stress test it was decided to proceed with IFR. iFRs of this lesion were serially negative around 0.92 indicating a nonobstructive lesion. Conclusions: moderate nonobstructive coronary atherosclerosis,
normal LV function, mild .
Plan:
Short runs of NSVT on tele earlier this admission. EF is preserved.
Ideally would keep K>4, Mg>2
Defer electrolyte/volume management to nephrology as patient is on HD
Will add back home BB
Remains in rate controlled AFib
Cont IV Heparin, transition to oral anticoagulation once no further procedures planned.
Receiving transfusion as per primary service to support H/H
Stable cardiac status
We will sign off, please recall as needed
HPI: Patient is a pleasant 71-year-old male with a past medical history significant for permanent atrial fibrillation, paroxysmal complete heart block status post dual-chamber pacemaker 2021, hypertension, hyperlipidemia, diabetes mellitus, prior
syncope, nerve stimulator, osteoarthritis who initially presented due to worsening lower extremity infection. Patient was noted to have significant atherosclerosis of bilateral lower extremities. Patient's renal function began to worsen and
patient with significant leukocytosis. Patient and family had reported increasing shortness of breath, decreased oral intake, and nausea. Since admission, patient undergoing treatment of infection with IV antibiotics however, renal function
continued to worsen. Patient underwent implant of dialysis catheter on 02/02/2025 with initiation of hemodialysis. Cardiology consulted due to elevated troponin and elevated BNP. Patient's initial troponin was noted to be 0.5 which is down trended
to 0.35 and 0.315. In discussion with patient and family, he notes some intermittent variable chest discomfort which occasionally occurs with position changes and at rest but no reported chest pain with activity or exertion. Prior to admission,
patient was active and denied chest pain shortness of breath or palpitations with activity or exertion. Additionally, patient's BNP checked on 02/01/2025 was greater than 27,000. Patient is a non-smoker, no alcohol, no illicits. Patient without
significant family history.
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
Subjective
Date of Service: February 12, 2025
NOAE. Resting comfortably in bed this AM. No cardiac complaints.
Objective
Labs:
02/12/25 05:02
02/12/25 05:02
Labs
Hgb 8.4 g/dL (13.0-18.0) L 02/12/25 05:02
Hct 24.8 % (39.0-52.0) L 02/12/25 05:02
Plt Count 180 10^3/uL (130-400) 02/12/25 05:02
PT 27.8 Sec (11.4-14.6) H 02/03/25 00:54
INR 2.59 02/03/25 00:54
APTT 71.5 Sec (23.4-35.0) H 02/12/25 05:02
Sodium 135 mmol/L (135-145) 02/12/25 05:02
Potassium 3.6 mmol/L (3.5-5.1) 02/12/25 05:02
BUN 29 mg/dl (9-20) H 02/12/25 05:02
Creatinine 2.4 mg/dL (0.7-1.3) H 02/12/25 05:02
Glucose 169 mg/dl (70-99) H 02/12/25 05:02
Vital Signs and I&O:
Vital Signs
Temp Pulse Resp BP Pulse Ox
98.1 F 87 16 156/71 95
02/12/25 06:09 02/12/25 08:02 02/12/25 08:02 02/12/25 08:02 02/12/25 08:10
Vital Signs
Temp Pulse Resp BP Pulse Ox
98.1 F 87 16 156/71 95
02/12/25 06:09 02/12/25 08:02 02/12/25 08:02 02/12/25 08:02 02/12/25 08:10
Intake & Output
02/10/25 02/11/25 02/12/25 02/13/25
06:59 06:59 06:59 06:59
Intake Total 840 / 840 420 / 420
Output Total 325 / 325 200 / 200 200 / 200
Balance 515 / 515 220 / 220 -200 / -200
Physical Exam
Physical Exam
Gen: NAD, AA
HEENT: NC/AT, sclera anicteric
Neck: No JVD
CV: Irregularly irregular, NL s1/s2
Lungs: CTAB on RA
Abd: S/ND
Ext: Trace LE edema, L foot CDI with guaze
Skin: Warm, dry
Neuro: Non-focal
--- NOTE | 2025-02-12 09:39 | W.PN.ID1 ---
Date of Service
Date of Service: February 12, 2025
Today's Communication
Continue Vancomycin.
Assessment / Plan
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
. spine stimulator incompatible with MRI.
# PAD, left 5th ischemic toe
. s/p CT angiogram
# s/p septic shock
# Leukocytosis resolved
# Ileus
# JESUS
. HD started 02/02
. Urine eos neg
# Suspected pneumonia/aspiration, completed 7d cefepime
# DM2 with neuropathy
- Blood cx's neg. Ucx neg.
- Wound cx MRSA
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
OR cx's : MRSA
Bone path still pending
- Continue Vancomycin (d15), dosing by level
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
Diabetes mellitus type 2
Hypertension
Atrial fibrillation on Xarelto
pacemaker placement
Chronic pain with spinal stimulator, not active
Chronic left leg weakness due to history of back injury during lumbar procedure 2019
Lumbar laminectomy
Chief Complaint
-: Clinical Sepsis and Other (osteo of left fifth metatarsal)
Subjective / Review of Systems
feeling better.
Vital Signs / Physical Exam
Vital Signs
Vital Signs
Temp Pulse Resp BP Pulse Ox
98.1 F 87 16 156/71 95
02/12/25 06:09 02/12/25 08:02 02/12/25 08:02 02/12/25 08:02 02/12/25 08:10
Physical Exam
Constitutional: No Acute Distress and Comfortable
Cardiovascular: Regular Rate and S1/S2
Gastrointestinal: Soft, Non Tender and Non Distended
Wound: Other (Left foot dressing dry)
Neurological: AO x 3
Lines: HD Cath
Objective Data
Lab Data
Lab Results
02/12/25 05:02
02/12/25 05:02
ESR 78 mm/hour (0-20) H 01/28/25 12:23
PT 27.8 Sec (11.4-14.6) H 02/03/25 00:54
INR 2.59 02/03/25 00:54
APTT 71.5 Sec (23.4-35.0) H 02/12/25 05:02
Estimated Creat Clear 29 ml/min 02/12/25 05:02
Lactic Acid 1.7 mmol/L (0.7-2.0) 02/05/25 00:53
Total Bilirubin 0.8 mg/dl (0.2-1.3) 02/12/25 05:02
AST 21 U/L (17-59) 02/12/25 05:02
ALT 20 U/L (0-50) 02/12/25 05:02
Alkaline Phosphatase 135 U/L (38-126) H 02/12/25 05:02
C-Reactive Protein 228.10 mg/L (0.0-10.00) H 01/28/25 12:23
Most recent labs reviewed.
Micro Results:
02/03/25 21:30 Wound Culture - Final
Foot - Left Staph aureus MRSA
Gram Stain - Final
02/03/25 21:30 Anaerobic Culture - Final
Foot - Left NO ANAEROBES ISOLATED
02/03/25 21:30 Tissue Culture - Final
Foot - Left Staph aureus MRSA
Gram Stain - Final
02/02/25 13:44 Urine Culture - Final
Urine NO GROWTH
01/29/25 04:07 Blood Culture - Final
Blood/Venous No Growth - Final Report
01/28/25 12:24 Blood Culture - Final
Blood/Venous No Growth - Final Report
01/31/25 09:04 Wound Culture - Final
Foot - Left Staph aureus MRSA
Gram Stain - Final
02/01/25 19:47 Influenza Types A & B (GIFTY) - Final
Nasal Swab Negative for Influenza A & B, NAAT
Negative results must be combined with clinical observations
and patient history.
Nucleic Acid Amplification test (NAAT)performed on the
[employer] platform.
01/30/25 10:04 Wound Culture - Final
Foot - Left Staph aureus MRSA
Gram Stain - Final
01/28/25 17:44 MRSA Screen - Final
Nose No Methicillin Resistant Staphylococcus aureus isolated.
Imaging:
01/28/25 Left foot XRAY: No acute osseous abnormality. Mild soft tissue swelling along the lateral forefoot.
02/01/25 CXR: Hazy increased density over the left lower hemithorax, probably mainly due to a posteriorly layering pleural effusion.
02/03/25 CXR: Parenchymal opacity within the right lower lung and the left mid to lower lung, similar to recent radiograph. Main differential considerations of atelectasis and/or pneumonia.
02/04/25 CT LE: 1. Interval amputation of the phalanges of the left 5th toe and the 5th metatarsal head since the prior exam performed 02/01/2025.
2. Large soft tissue wound distal to the 5th metatarsal with soft tissue emphysema extending deep to the lateral cortex of the 4th metatarsal head.
3. Moderate subcutaneous edema throughout the left lower leg and thigh.
4. Moderate to severe calcific atherosclerotic plaque throughout the left lower extremity.
5. Small to moderate-sized left knee joint effusion.
6. Severe anasarca in the left lateral abdominal wall.
7. Moderate retroperitoneal and extraperitoneal edema in the pelvis.
8. Severe diffuse urinary bladder wall thickening with adjacent perivesical inflammation suggesting ACUTE CYSTITIS. Chronic urinary bladder outlet obstruction is also likely present given severe enlargement of the prostate gland.
9. Mild circumferential wall thickening and fluid distention of the rectum suggesting an acute prostatitis. Rectal tube in place.
02/07/25 CXR/AXR: Extremely low lung volumes. Some bibasilar opacification which could represent atelectasis and/or pneumonia and small bilateral pleural effusions, left possibly greater than right. Air seen throughout small bowel, few loops
borderline prominent, nonspecific air-fluid levels, most likely representing ileus. No free air.
[2025-02-12 10:19] LABS: Glucose - Point of Care 160 mg/dl (70-99)
--- NOTE | 2025-02-12 10:22 | W.PN.HOSP.TC ---
Today's Communication/Plan
-
Calorie Count -- continue current diet with aspiration precautions
EGD is needed -- sent [place] Text to the other specialists involved to see if all good for EGD from their standpoint and when Heparin can be held for the EGD
Patient may need Dobhoff Tube for nutrition -- GI will look into this after EGD as long as there are features in the EGD that would make the Dobhoff contraindicated
Continue Heparin Drip
Spoke with patient's family today
Assessment / Plan
Assessment / Plan
Physical Exam
Gen-awake, alert, NAD
HEENT-NC, AT, anicteric, clear oral mm
Neck-supple
CV-reg, no M, +S1/S2
Lungs-clear B/L
Abd-soft, NT, ND
Ext-mild left upper extremity edema
Musculoskeletal-no cyanosis, left foot dressing intact
Skin-warm and dry
Neuro-grossly non-focal
Psych-calm, cooperative
Assessment/Plan
Aspiration pneumonitis/acute hypoxic respiratory failure - triggered by vomiting, possibly triggered by ileus. Oxygenation improved, now on room air.
Acute TME - due to sepsis, shock, critical illness. Mental status appears back to baseline.
Septic shock - due to to left fifth metatarsal abscess, acute osteomyelitis.
-IV vancomycin per ID.
Shock resolved. Off vasopressors. Blood cultures negative so far. Wound culture shows MRSA.
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
Leukocytosis improved overall. Afebrile.
Unable to have MRI due to spinal stimulator not active
Wound culture grew MRSA
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 Podiatry following. Follow Pathology from bone margins. Wound culture from the OR shows MRSA.
PAD
-Per patient's , the PVD in his left leg is a lot more severe than his right leg
-CT angiogram done 02/01 shows multifocal atherosclerotic disease throughout the bilateral lower extremities. Diminished flow in the left anterior tibial artery with some apparent distal reconstitution, diminished flow at the distal aspect of the
left peroneal artery at the level of the ankle. Short segment high-grade stenosis of the distal right SFA.
-Vascular surgery has been having ongoing discussions with family regarding goals of care and decision for left lower extremity revascularization with potential risk for further renal deterioration.
-Possibly will have angiogram next week depending on renal function.
Lactic acidosis due to sepsis/shock - normalized.
-Differential diagnosis include metformin induced versus worsening sepsis
-Metformin discontinued 02/01
-MAP has been consistently greater than 65
Acute kidney injury
- due to septic shock. Anuric. Gonzalez catheter was placed. Etiology of JESUS most likely due to septic shock and medications and less likely due to contrast-induced nephropathy as contrast exposure was on 02/01, creatinine was 3.3 morning of 02/01.
-Appreciate nephrology input, dialysis started 02/02. Dialysis IJ catheter was placed.
-High anion gap metabolic acidosis due to septic shock, lactic acidosis. Metabolic acidosis resolved. Off sodium bicarbonate IV.
-Hold metformin, lisinopril, hydrochlorothiazide, trend creatinine, no nephrotoxic drugs or NSAIDs
-Hemodialysis as per nephrology -- next dialysis will be tomorrow
-Holding angiogram until renal recovery can be determined
Ileus
- developed nausea and vomiting on 02/03. Briefly treated with NG tube.
- Repeat x-ray 02/07 showed air throughout the small bowel, few loops borderline prominent, nonspecific air-fluid levels, most likely ileus. No free air.
- Diet advanced on 02/11/25 to pureed as per speech recommendations. Appreciate speech & swallow re-evaluation
- Held IV Dilaudid prn (started Tylenol for pain control instead)
- Patient had one loose bowel movement on 02/12/25 morning
- Recheck abdominal x-ray
Not eating or drinking well
Poor PO Intake
-Pain with swallowing and ileus could be contributing
-GI considering EGD
-Discussed ileus with GI, they are following (also see above)
-Will consider Dobhoff feeding tube when patient has EGD -- discussed with GI -- if patient's stomach is partially obstructed, he will aspirate -- if okay to put Dobhoff tube, they can put during the EGD
-Calorie Count ordered 02/12/25
Odynophagia -- perhaps his odynophagia is due to Rochelle esophagitis or other viral esophagitis
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
-GI recommending an EGD
-Continue IV PPI BID and Carafate
-Dysphagia - unknown acuity. Suspect related to critical illness, possible esophagitis. Speech therapist re-evaluation.
Acute GI bleed
- exacerbated by anticoagulation with IV heparin. Cannot rule out stress ulcer. Bowel movement on 02/07/25 was blood-tinged and burgundy. GI following.
Continue Protonix IV twice daily and Carafate. Transfuse Hgb to maintain Hgb>8.
-May have a component of esophagitis
Acute blood loss anemia
- due to GI bleed as above. Hemoglobin stable today. Monitor closely. Admission hemoglobin was 11.6. May have baseline chronic anemia of unclear etiology. Transfuse Hgb to maintain Hgb>8.
Anemia of Chronic Kidney Disease
- nephrology following and placed EPO order
LUE edema
LUE pain from needlesticks
- Doppler ultrasound negative for DVT.
- Ordered scheduled Tylenol 1000 mg Q8H
Acute on chronic heart failure with preserved ejection fraction
- Cardiology following, continue dialysis as per nephrology
- Dr. Munoz is his trade recruiter
Troponin elevation
- suspect acute nonischemic myocardial injury due to septic shock. Troponins trended down.
Permanent atrial fibrillation with rapid ventricular response
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
-Continue Heparin Drip. Was on Xarelto prior to admission -- plan to transition back to oral anticoagulation once no further procedures planned
-Outpatient Toprol XL added back on 02/12/25
Known moderate nonobstructive coronary disease in 2021
-Continue statin
2 consecutive episodes of VT overnight 02/10/25 to 02/11/25
-Cardiology following
-Outpatient Toprol XL added back on 02/12/25
-Monitor in IMU
Hyponatremia
- Resolved.
Hyperphosphatemia
- due to JESUS. Improving. Repeat phosphorus normal.
DM 2 with hyperglycemia
-At home he was on insulin degludec 24 units at bedtime, NovoLog sliding scale with meals, metformin.
-Hemoglobin A1c 7.1 on 01/13/2025
-Hold metformin 1000 mg daily due to JESUS and lactic acidosis earlier this hospitalization
-Currently glucose levels are acceptable
-Continue Lantus 15 units at bedtime. Change aspart to 3 units before meals. Low resistance corrective scale.
-Dr. Pathak is his stripper latex
Essential hypertension
- Toprol XL resumed today
Hyperlipidemia
- was on lovastatin prior to admission -- continue this or equivalent statin for it's cardioprotective effects and hyperlipidemia history
Chronic back pain
-Patient sees a pain management provider outpatient
Obesity due to excess calories
DVT prophylaxis -SCDs. Heparin Drip.
Full code
PT/OT -Eventual SNF when medically stable.
On February 12, 2025, I spoke extensively with patient's son, patient's daughter, and through patient's daughter's speaker phone, I also spoke extensively with patient's . I answered all of their questions and concerns to satisfaction.
Anticipated Discharge: > 48 hours
Subjective/Interval History
-
Date of Service: February 12, 2025
Patient was seen and examined. No new significant symptoms or complaints, he had one loose bowel movement this morning.
Objective Data
-
Labs:
Laboratory Results
02/11/25 02/12/25 02/12/25
22:03 05:02 11:40
WBC 9.6
Hgb 8.4 L
Hct 24.8 L
Plt Count 180
APTT 90.9 H 71.5 H Pending
Sodium 135
Potassium 3.6
Chloride 102
Carbon Dioxide 27
BUN 29 H
Creatinine 2.4 H
Glucose 169 H
Calcium 7.6 L
Total Bilirubin 0.8
AST 21
ALT 20
Alkaline Phosphatase 135 H
Vital Signs:
Vital Signs
Temp Pulse Resp BP Pulse Ox
98.1 F 87 16 156/71 95
02/12/25 06:09 02/12/25 08:02 02/12/25 08:02 02/12/25 08:02 02/12/25 08:10
I&O
02/11/25 02/12/25 02/13/25
06:59 06:59 06:59
Intake Total 420 / 420
Output Total 200 / 200 200 / 200
Balance 220 / 220 -200 / -200
[2025-02-12] MEDS: NOVOLOG FLEXPEN 3 UNITS SC ×2 (10:30→16:29)
[2025-02-12] MEDS: NOVOLOG FLEXPEN-LOW RESISTANCE 300 UNITS SC (10:30)
--- NOTE | 2025-02-12 11:20 | W.PN.NEPH.PH ---
Today's Communication / Plan
-
HD tomorrow
follow labs
Assessment/Plan
-
IMP:
TME
Septic shock
Lactic acidosis
Sepsis 2/2 to Diabetic left foot cellulitis w/ lymphangitis
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
Acute kidney injury-baseline cr 0.9-1.1
Peripheral artery disease
hyponatremia
IDDM 2
Essential hypertension
Constipation
A-fib�permanent
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
HLD
Obesity due to excess calories
Plan:
JESUS-no recovery noted since pre HD cr still uprising
s/p tunneled catheter on 02/11
next HD tomorrow
there certainly could be some recovery of renal function, but would not let this possibility delay plans for rehab
holding Agram until renal recovery can be determined
follow h/h
cont abx per ID
plan rehab
-
-
Date of Service: February 12, 2025
CC / HPI / ROS
-
Chief Complaint:
JESUS
History of Present Illness:
Urine output improved
JESUS/HD tolerated HD yesterday
BP stable
poor po intake
Review of Systems:
UOP not measured, seem to have few voids
no cp or sob noted
no fever
Labs
-
Labs:
WBC 9.6 10^3/uL (4.8-10.8) 02/12/25 05:02
RBC 2.78 10^6/uL (4.70-6.10) L 02/12/25 05:02
Hgb 8.4 g/dL (13.0-18.0) L 02/12/25 05:02
Hct 24.8 % (39.0-52.0) L 02/12/25 05:02
Plt Count 180 10^3/uL (130-400) 02/12/25 05:02
Sodium 135 mmol/L (135-145) 02/12/25 05:02
Potassium 3.6 mmol/L (3.5-5.1) 02/12/25 05:02
Chloride 102 mmol/L (98-107) 02/12/25 05:02
Carbon Dioxide 27 mmol/L (22-30) 02/12/25 05:02
BUN 29 mg/dl (9-20) H 02/12/25 05:02
Creatinine 2.4 mg/dL (0.7-1.3) H 02/12/25 05:02
eGFR 26.94 02/12/25 05:02
Glucose 169 mg/dl (70-99) H 02/12/25 05:02
Calcium 7.6 mg/dl (8.4-10.2) L 02/12/25 05:02
Phosphorus 3.1 mg/dl (2.5-4.5) 02/12/25 05:02
Ggw-O-Tyy[place]un Pept > 89620 pg/ml 02/01/25 20:16
Albumin 2.7 g/dl (3.5-5.0) L 02/12/25 05:02
Physical Exam
-
Vital Signs:
Vital Signs
Temp Pulse Resp BP Pulse Ox
98.1 F 87 16 156/71 95
02/12/25 06:09 02/12/25 08:02 02/12/25 08:02 02/12/25 08:02 02/12/25 08:10
Cardiovascular:: Regular rate and rhythm
Respiratory:: Bilateral: CTA (anteriorly)
Lung Excursion:: Normal
Abdomen:: Nontender and Soft
Bowel Sounds:: Normal
Extremity Edema:: +1: Bilateral:
Gonzalez Catheter: No
[2025-02-12] MEDS: TOPROL XL 25 MG PO ×2 (11:24→20:55)
[2025-02-12] MEDS: TYLENOL 1000 MG PO ×2 (12:16→21:34)
--- NOTE | 2025-02-12 12:55 | W.PN.GI.CBS2 ---
Today's Communication / Plan
-
EGD, timing to be determined
Assessment / Plan
-
impression:
anemia
gib
odynophagia
abdominal distention
nsaid use
plan:
This patient is a 79-year-old man with a history of diabetes, septic shock and acute kidney injury. He was admitted to the ICU and had abdominal distention. I do worry that he is NSAID induced peptic ulcer disease and perhaps his odynophagia is
due to Rochelle esophagitis or other viral esophagitis. For now I would do the following:
1. I do recommend an upper endoscopy in light of the need of ongoing anticoagulation and to assess for the above.
2. I would continue on a PPI IV twice daily and Carafate
3 I did have a long discussion with the son and did contact the primary team as well as vascular.. We do need to set up timing for this when he is off heparin.
4. I would hold on a colonoscopy at this time
His abdomen is mildly distended
5. But nontender at this point. We can continue to monitor.
Subjective
Subjective
Date of Service: February 12, 2025
This patient is a complicated 79-year-old man who is initially admitted with septic shock lactic acidosis acute kidney injury and peripheral vascular disease. He also has atrial fibrillation. During the course of his hospitalization he had
abdominal distention and an NG tube. He does note that he has taken NSAIDs in the past. He then started having odynophagia and was started on a PPI IV twice a day and Carafate. He does state that his symptoms did mildly improve but he still has
significant intermittent odynophagia. He does not have overt dysphagia but does not eat more than pur�es at this point. He is on heparin and will need longstanding anticoagulation. He is abdomen is not painful but it is still mildly distended as
per his opinion.
Objective
Data Reviewed
Laboratory Data:
Laboratory Results
02/12/25 05:02
02/12/25 05:02
Laboratory Results
PT 27.8 Sec (11.4-14.6) H 02/03/25 00:54
INR 2.59 02/03/25 00:54
APTT 71.5 Sec (23.4-35.0) H 02/12/25 05:02
Phosphorus 3.1 mg/dl (2.5-4.5) 02/12/25 05:02
Magnesium 1.8 mg/dl (1.6-2.3) 02/11/25 05:56
Total Bilirubin 0.8 mg/dl (0.2-1.3) 02/12/25 05:02
AST 21 U/L (17-59) 02/12/25 05:02
ALT 20 U/L (0-50) 02/12/25 05:02
Alkaline Phosphatase 135 U/L (38-126) H 02/12/25 05:02
Vital Signs and I&O:
Vital Signs
Temp Pulse Resp BP Pulse Ox
98.1 F 87 16 156/71 95
02/12/25 06:09 02/12/25 08:02 02/12/25 08:02 02/12/25 08:02 02/12/25 08:10
I&O
02/11/25 02/12/25 02/13/25
06:59 06:59 06:59
Intake Total 420 / 420
Output Total 200 / 200 200 / 200
Balance 220 / 220 -200 / -200
Physical Exam
Physical Exam
Cardiology: S1 and S2
GI: Soft, Distended and Non Tender
[2025-02-12 12:57] LABS: APTT 54.1 Sec (23.4-35.0)
[2025-02-12] MEDS: HEPARIN 25000 UNITS/250 ML IV (13:20)
--- NOTE | 2025-02-12 13:54 | W.PN.POD ---
Today's Communication
Today's Communication
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
Assessment / Plan
-
S/P Left partial 5th ray amputation - secondary to Left foot Diabetic foot infection
Sepsis
JESUS
IDDM
neuropathy
PAD
Plan:
The left foot wound was flushed and dressed with silver alginate today. Continue vanco/cefipime per ID. Bone & would cultures pending. 5th ray pathology and proximal clean margin pending. Vascular plans pending. will follow
Subjective
Chief Complaint
Left foot - S/P partial 5th ray amputation
Subjective
Patient seen at bedside - awake, no complaints of pain
Objective
Temp Pulse Resp BP Pulse Ox
98.1 F 87 16 156/71 95
02/12/25 06:09 02/12/25 08:02 02/12/25 08:02 02/12/25 08:02 02/12/25 08:10
02/12/25 05:02
02/12/25 05:02
Vital Signs and Lab results were reviewed.
Physical Exam
Physical Exam
Left foot with bandages intact, minimal strikethrough on inner bandages. non-palpable pulses, CFT delayed, Packing in place, wound bed is clean, no purulence expressed. Area of previous eschar along dorsal medial border of incision is unchanged.
erythema resolved. wound bed with minimal granulation tissue
--- NOTE | 2025-02-12 14:00 | WOUNDNOTE ---
L 5TH TOE AMP SITE
--- NOTE | 2025-02-12 14:00 | WOUNDNOTE ---
[facility] RN Note: Patient seen with Dr. Guzman during L foot dressing change. L 5th toe ray amp wound black, yellow and pink, small serous drainage. L dorsal foot erythema down. Dr. Guzman to place L foot wound care orders in for nursing. Skin on
patient's heels intact. Coccyx crease with a small linear dermal open area suspect r/t moisture. Patient mentioned he was having some loose stool recently. Calazime being used. Patient turned to L semi side lying position. Patient assisted. Heels
off bed with pillows. Vascular following. Patient for possible arteriogram when kidney function improves. Encouraged patient to eat more. He stated he is not eating great. Will follow as needed.
--- NOTE | 2025-02-12 14:18 | WOUNDNOTE ---
L 5TH TOE AMP SITE
[2025-02-12] MEDS: NOVOLOG FLEXPEN SC (16:28)
[2025-02-12] MEDS: NOVOLOG FLEXPEN-LOW RESISTANCE SC (16:28)
[2025-02-12] MEDS: NOVOLOG FLEXPEN-LOW RESISTANCE 1 UNITS SC (16:29)
[2025-02-12 16:32] LABS: Glucose - Point of Care 179 mg/dl (70-99)
--- NOTE | 2025-02-12 18:05 | WOUNDNOTE ---
[place] texted ALLEN Moeller requesting patient have an air chair cushion if not already in place. Sunni responded she will do that.
[2025-02-12] MEDS: LIPITOR 10 MG PO (18:15)
[2025-02-12] MEDS: STERILE WATER FOR INJECTION IV (18:17)
--- NOTE | 2025-02-12 18:39 | PTCARENOTE ---
pt po intake poor. po intake encouraged. nepro ordered and given to pt. he did drink entire nepro. obstruction series done as ordered. heparing drip infusing. rate increased per protocol. pt noted to have slight pink tinge to urine this afternoon.
hospitalist made aware via tiger text. and son at bedside.
--- NOTE | 2025-02-12 20:04 | W.PN.UPDATE ---
Update Note
Progress Note Update
I received a [place] Text from patient's nurse a little earlier saying that patient's urine is slightly blood-tinged. In this setting, okay to continue Heparin Drip and observe, and I confirmed this with the on-call urologist. If the patient starts
having worsening bleeding with clots in his urine, any kind of catheter obstruction and need for flushing, then would hold the Heparin Drip and consult urology.
[2025-02-12 21:13] LABS: APTT 74.3 Sec (23.4-35.0)
[2025-02-12 21:33] LABS: Glucose - Point of Care 227 mg/dl (70-99)
[2025-02-12] MEDS: NOVOLOG FLEXPEN-LOW RESISTANCE 2 UNITS SC (21:35)
[2025-02-12] MEDS: LANTUS 0.15 UNITS SC (21:56)
--- NOTE | 2025-02-12 22:30 | PTCARENOTE ---
Assumed care of Pt from dayshift RN. Pt is drowsy,arousable to verbal stimuli and can answer all orientation questions. afib on monitor. heparin gtt currently running at 1600 units/hr, per orders. see intervention on worklist. last PTT 74.1, within
therapeutic range. Pt took hs pills whole in water, remains c/o discomfort with swallowing. assessment as documented. call light in reach.
[2025-02-13] VITALS (37 sets, daily range): BP systolic 18–180; BP diastolic 56–134; BMI 31.8
[2025-02-13 05:07] LABS: Hematocrit 27.9 % (39.0-52.0); Hemoglobin 9.2 g/dL (13.0-18.0); Mean Corp Hgb Conc. 33.0 g/dL (33.0-37.0); Mean Corpuscular Volume 88.3 fL (80.0-94.0); Nucleated Red Blood Cells % 0 % (-); Platelet Count 199 10^3/uL (130-400); Red Cell Dist. Width 14.7 % (11.5-14.5)
[2025-02-13] MEDS: HEPARIN 25000 UNITS/250 ML IV (05:25)
[2025-02-13 05:42] LABS: APTT 107.7 Sec (23.4-35.0)
[2025-02-13 06:13] LABS: Blood Urea Nitrogen 38 mg/dl (9-20); Calcium 8.4 mg/dl (8.4-10.2); Carbon Dioxide 26 mmol/L (22-30); Chloride 103 mmol/L (98-107); Estimated Creatinine Clearance 24 ml/min; Glucose 227 mg/dl (70-99); Potassium 3.7 mmol/L (3.5-5.1); Sodium 135 mmol/L (135-145); eGFR 21.47
[2025-02-13] MEDS: REMOVE LIDOCAINE PATCH REMOVE ×2 (07:15→21:27)
--- NOTE | 2025-02-13 07:38 | W.PN.HOSP.TC ---
Today's Communication/Plan
-
Start tube feeds. Oral meds converted to PO.
Avoid all PO -- but start tube feeding with Nepro and continue meds through tube feed or IV as ordered.
Check AM electrolytes
Assessment / Plan
Assessment / Plan
Physical Exam
Gen-awake, alert, NAD
HEENT-NC, AT, anicteric, clear oral mm
Neck-supple
CV-reg, no M, +S1/S2
Lungs-clear B/L
Abd-soft, NT, ND
Ext-mild left upper extremity edema
Musculoskeletal-no cyanosis, left foot dressing intact
Skin-warm and dry
Neuro-grossly non-focal
Psych-calm, cooperative
Assessment/Plan
Aspiration pneumonitis/acute hypoxic respiratory failure - triggered by vomiting, possibly triggered by ileus. Oxygenation improved, now on room air.
Acute TME - due to sepsis, shock, critical illness. Mental status appears back to baseline.
Septic shock - due to to left fifth metatarsal abscess, acute osteomyelitis.
-IV vancomycin per ID.
Shock resolved. Off vasopressors. Blood cultures negative so far. Wound culture shows MRSA.
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
Leukocytosis improved overall. Afebrile.
Unable to have MRI due to spinal stimulator not active
Wound culture grew MRSA
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 Podiatry following. Follow Pathology from bone margins. Wound culture from the OR shows MRSA.
PAD
-Per patient's , the PVD in his left leg is a lot more severe than his right leg
-CT angiogram done 02/01 shows multifocal atherosclerotic disease throughout the bilateral lower extremities. Diminished flow in the left anterior tibial artery with some apparent distal reconstitution, diminished flow at the distal aspect of the
left peroneal artery at the level of the ankle. Short segment high-grade stenosis of the distal right SFA.
-Vascular surgery has been having ongoing discussions with family regarding goals of care and decision for left lower extremity revascularization with potential risk for further renal deterioration.
-Possibly will have angiogram next week depending on renal function.
Lactic acidosis due to sepsis/shock - normalized.
-Differential diagnosis include metformin induced versus worsening sepsis
-Metformin discontinued 02/01
-MAP has been consistently greater than 65
Acute kidney injury
- due to septic shock. Anuric. Gonzalez catheter was placed. Etiology of JESUS most likely due to septic shock and medications and less likely due to contrast-induced nephropathy as contrast exposure was on 02/01, creatinine was 3.3 morning of 02/01.
-Appreciate nephrology input, dialysis started 02/02. Dialysis IJ catheter was placed.
-High anion gap metabolic acidosis due to septic shock, lactic acidosis. Metabolic acidosis resolved. Off sodium bicarbonate IV.
-Hold metformin, lisinopril, hydrochlorothiazide, trend creatinine, no nephrotoxic drugs or NSAIDs
-Hemodialysis as per nephrology
-Holding angiogram until renal recovery can be determined
Ileus
- developed nausea and vomiting on 02/03. Briefly treated with NG tube.
- Repeat x-ray 02/07 showed air throughout the small bowel, few loops borderline prominent, nonspecific air-fluid levels, most likely ileus. No free air.
- Held narcotics/IV Dilaudid prn (started Tylenol for pain control instead)
- Patient had one loose bowel movement on 02/12/25 morning
- Repeat x-ray from 02/12/25 was okay
Not eating or drinking well
Poor PO Intake
-Pain with swallowing and ileus could be contributing
-GI performed EGD 02/13/25 which showed severe esophagitis
-Discussed ileus with GI, they are following (also see above)
-Start Dobhoff tube feeding on 02/13/25
Odynophagia secondary to Severe Esophagitis found on EGD 02/13/25
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
-GI performed EGD on 02/13/25: showed severe esophagitis
-Follow-up on biopsies from EGD
-Continue IV PPI BID and Carafate
-Recommendation is to avoid ALL PO MEDS for now -- use tube feed for all enteral intake
-Dobhoff tube placed
Acute GI bleed
- exacerbated by anticoagulation with IV heparin. Cannot rule out stress ulcer. Bowel movement on 02/07/25 was blood-tinged and burgundy. GI following.
Continue Protonix IV twice daily and Carafate. Transfuse Hgb to maintain Hgb>8.
-May have a component of esophagitis
Acute blood loss anemia
- due to GI bleed as above. Hemoglobin stable today. Monitor closely. Admission hemoglobin was 11.6. May have baseline chronic anemia of unclear etiology. Transfuse Hgb to maintain Hgb>8.
Mild Hematuria -- RESOLVED
- Noted on 02/12/25, later resolved while on Heparin Drip
- Monitor for now
Anemia of Chronic Kidney Disease
- nephrology following and placed EPO order
LUE edema
LUE pain from needlesticks
- Doppler ultrasound negative for DVT.
- Ordered scheduled Tylenol 1000 mg Q8H
Acute on chronic heart failure with preserved ejection fraction
- Cardiology following, continue dialysis as per nephrology
- Dr. Munoz is his inorganic chemistry teacher
Troponin elevation
- suspect acute nonischemic myocardial injury due to septic shock. Troponins trended down.
Permanent atrial fibrillation with rapid ventricular response
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
-Continue Heparin Drip. Was on Xarelto prior to admission -- plan to transition back to oral anticoagulation once no further procedures planned
-Outpatient Toprol XL added back on 02/12/25
Known moderate nonobstructive coronary disease in 2021
-Continue statin
2 consecutive episodes of VT overnight 02/10/25 to 02/11/25
-Cardiology following
-Outpatient Toprol XL added back on 02/12/25 -- changed to Lopressor on 02/13/25 given that Toprol cannot be given by tube feeds
-Monitor in IMU
Hyponatremia
- Resolved.
Hyperphosphatemia
- due to JESUS. Improving. Repeat phosphorus normal.
DM 2 with hyperglycemia
-At home he was on insulin degludec 24 units at bedtime, NovoLog sliding scale with meals, metformin.
-Hemoglobin A1c 7.1 on 01/13/2025
-Hold metformin 1000 mg daily due to JESUS and lactic acidosis earlier this hospitalization
-Currently glucose levels are acceptable
-Continue Lantus 15 units at bedtime. Change aspart to 3 units before meals. Low resistance corrective scale.
-Dr. Pathak is his rn clinical
Essential hypertension
- Toprol XL resumed today
Hyperlipidemia
- was on lovastatin prior to admission -- continue this or equivalent statin for it's cardioprotective effects and hyperlipidemia history
Chronic back pain
-Patient sees a pain management provider outpatient
Obesity due to excess calories
DVT prophylaxis -SCDs. Heparin Drip.
Full code
PT/OT -Eventual SNF when medically stable.
On February 12, 2025, I spoke extensively with patient's son, patient's daughter, and through patient's daughter's speaker phone, I also spoke extensively with patient's . I answered all of their questions and concerns to satisfaction.
On February 13, 2025, I spoke with patient's over the phone and we discussed patient's current medical status and tube feeds and esophagitis. I answered all of her questions and concerns to satisfaction.
Anticipated Discharge: > 48 hours
Subjective/Interval History
-
Date of Service: February 13, 2025
Patient was seen and examined. He denied any new symptoms. Still with very poor oral intake.
Objective Data
-
Labs:
Laboratory Results
02/12/25 02/13/25 02/13/25
20:50 04:49 05:20
WBC 10.3
Hgb 9.2 L
Hct 27.9 L
Plt Count 199
APTT 74.3 H Cancelled 107.7 H
Sodium 135
Potassium 3.7
Chloride 103
Carbon Dioxide 26
BUN 38 H
Creatinine 2.9 H
Glucose 227 H
Calcium 8.4
Vital Signs:
Vital Signs
Temp Pulse Resp BP Pulse Ox
99.0 F 84 19 160/77 98
02/13/25 07:31 02/13/25 06:00 02/13/25 06:00 02/13/25 06:00 02/13/25 04:02
I&O
02/12/25 02/13/25 02/14/25
06:59 06:59 06:59
Intake Total 400 / 400
Output Total 200 / 200 145 / 145
Balance -200 / -200 255 / 255
[2025-02-13 07:49] LABS: Glucose - Point of Care 199 mg/dl (70-99)
--- NOTE | 2025-02-13 07:54 | PHA.VAN.FU ---
Addendum entered and electronically signed by Jacinda Mccabe Aidan 02/13/25 08:09:
Agree with assessment and plan
Original Note:
Vancomycin Assessment / Plan
- Assessment
Hemodialysis Schedule: Other
WBC's are: WNL
In the past 24 hrs, patient has been: Afebrile
- Assessment - Therapeutic Drug Monitoring
Random Level: 15.3 - drawn ~40.25H after last dose of 750mg
- Dosing Plan
Dosing by Level: Re-dose today (give 750mg x1 dose post-HD today)
- Monitoring Plan
No level(s) ordered at this time: will get level before next HD session
- Follow Up
Pharmacy will continue to follow.
Vancomycin Follow UP
- -
Patient Age: 79
Patient Sex: Male
Vancomycin Day #: 15
Indication: Skin And Soft Tissue
Requesting Provider: Dr. Archer/Dr. Maguire
Pertinent Antimicrobial Allergies:
NKDA
Height / Weight:
Height 5 ft 9 in
Actual Weight 97.5 kg
Pertinent Past Medical History: BMI ~30.5, DM 2
- Vital Signs / Lab Results
Temp Pulse Resp BP Pulse Ox
99.0 F 84 19 160/77 98
02/13/25 07:31 02/13/25 06:00 02/13/25 06:00 02/13/25 06:00 02/13/25 04:02
Lab Results - Hematology
02/10/25 02/11/25 02/12/25
10:00 05:56 05:02
WBC 11.7 H 11.1 H 9.6
02/13/25
04:49
WBC 10.3
Lab Results - Chemistry
02/10/25 02/10/25 02/11/25
10:00 11:36 05:56
BUN Cancelled 53 H 57 H
Creatinine Cancelled 3.3 H 3.6 H
Estimated Creat Clear Cancelled 19
Albumin 2.7 L
02/12/25 02/13/25
05:02 04:49
BUN 29 H 38 H
Creatinine 2.4 H 2.9 H
Estimated Creat Clear 29 24
Albumin 2.7 L
Therapeutic Drug Monitoring
Random Vancomycin 15.3 ug/ml 02/13/25 04:49
[2025-02-13] MEDS: CARAFATE SUSPENSION PO ×2 (08:10→12:45)
[2025-02-13] MEDS: NOVOLOG FLEXPEN SC ×2 (08:10→12:45)
[2025-02-13] MEDS: TOPROL XL PO (08:10)
[2025-02-13] MEDS: TYLENOL PO (08:11)
--- NOTE | 2025-02-13 08:28 | W.PN.ID1 ---
Date of Service
Date of Service: February 13, 2025
Today's Communication
Continue Vancomycin,
Assessment / Plan
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
. spine stimulator incompatible with MRI.
# PAD, left 5th ischemic toe
. s/p CT angiogram
. For endovascular intervention pending renal status, per Vascular
# s/p septic shock
# Leukocytosis resolved
# Odynophagia
. for eventual EGD per GI
# JESUS
. HD started 02/02
. Urine eos neg
# s/p suspected pneumonia/aspiration, completed 7d cefepime
# DM2 with neuropathy
- Blood cx's neg. Ucx neg.
- Wound cx MRSA
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
OR cx's : MRSA
Bone path still pending
- Continue Vancomycin (d16), dosing by level
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
Diabetes mellitus type 2
Hypertension
Atrial fibrillation on Xarelto
pacemaker placement
Chronic pain with spinal stimulator, not active
Chronic left leg weakness due to history of back injury during lumbar procedure 2019
Lumbar laminectomy
Chief Complaint
-: Clinical Sepsis and Other (osteo of left fifth metatarsal)
Subjective / Review of Systems
Making urine. No dysuria.
Some pain with swallowing.
Vital Signs / Physical Exam
Vital Signs
Vital Signs
Temp Pulse Resp BP Pulse Ox
99.0 F 86 16 166/73 98
02/13/25 07:31 02/13/25 08:15 02/13/25 08:15 02/13/25 08:15 02/13/25 04:02
Physical Exam
Constitutional: No Acute Distress and Comfortable
Eyes: Sclera Anicteric
Pulmonary: Clear (anteriorly)
Gastrointestinal: Soft and Non Tender
Extremities: Negative Edema
Neurological: AO x 3
Lines: HD Cath
Objective Data
Lab Data
Lab Results
02/13/25 04:49
02/13/25 04:49
ESR 78 mm/hour (0-20) H 01/28/25 12:23
PT 27.8 Sec (11.4-14.6) H 02/03/25 00:54
INR 2.59 02/03/25 00:54
APTT 107.7 Sec (23.4-35.0) H 02/13/25 05:20
Estimated Creat Clear 24 ml/min 02/13/25 04:49
Lactic Acid 1.7 mmol/L (0.7-2.0) 02/05/25 00:53
Total Bilirubin 0.8 mg/dl (0.2-1.3) 02/12/25 05:02
AST 21 U/L (17-59) 02/12/25 05:02
ALT 20 U/L (0-50) 02/12/25 05:02
Alkaline Phosphatase 135 U/L (38-126) H 02/12/25 05:02
C-Reactive Protein 228.10 mg/L (0.0-10.00) H 01/28/25 12:23
Most recent labs reviewed.
Micro Results:
02/03/25 21:30 Wound Culture - Final
Foot - Left Staph aureus MRSA
Gram Stain - Final
02/03/25 21:30 Anaerobic Culture - Final
Foot - Left NO ANAEROBES ISOLATED
02/03/25 21:30 Tissue Culture - Final
Foot - Left Staph aureus MRSA
Gram Stain - Final
02/02/25 13:44 Urine Culture - Final
Urine NO GROWTH
01/29/25 04:07 Blood Culture - Final
Blood/Venous No Growth - Final Report
01/28/25 12:24 Blood Culture - Final
Blood/Venous No Growth - Final Report
01/31/25 09:04 Wound Culture - Final
Foot - Left Staph aureus MRSA
Gram Stain - Final
02/01/25 19:47 Influenza Types A & B (GIFTY) - Final
Nasal Swab Negative for Influenza A & B, NAAT
Negative results must be combined with clinical observations
and patient history.
Nucleic Acid Amplification test (NAAT)performed on the
[employer] platform.
01/30/25 10:04 Wound Culture - Final
Foot - Left Staph aureus MRSA
Gram Stain - Final
01/28/25 17:44 MRSA Screen - Final
Nose No Methicillin Resistant Staphylococcus aureus isolated.
Imaging:
01/28/25 Left foot XRAY: No acute osseous abnormality. Mild soft tissue swelling along the lateral forefoot.
02/01/25 CXR: Hazy increased density over the left lower hemithorax, probably mainly due to a posteriorly layering pleural effusion.
02/03/25 CXR: Parenchymal opacity within the right lower lung and the left mid to lower lung, similar to recent radiograph. Main differential considerations of atelectasis and/or pneumonia.
02/04/25 CT LE: 1. Interval amputation of the phalanges of the left 5th toe and the 5th metatarsal head since the prior exam performed 02/01/2025.
2. Large soft tissue wound distal to the 5th metatarsal with soft tissue emphysema extending deep to the lateral cortex of the 4th metatarsal head.
3. Moderate subcutaneous edema throughout the left lower leg and thigh.
4. Moderate to severe calcific atherosclerotic plaque throughout the left lower extremity.
5. Small to moderate-sized left knee joint effusion.
6. Severe anasarca in the left lateral abdominal wall.
7. Moderate retroperitoneal and extraperitoneal edema in the pelvis.
8. Severe diffuse urinary bladder wall thickening with adjacent perivesical inflammation suggesting ACUTE CYSTITIS. Chronic urinary bladder outlet obstruction is also likely present given severe enlargement of the prostate gland.
9. Mild circumferential wall thickening and fluid distention of the rectum suggesting an acute prostatitis. Rectal tube in place.
02/07/25 CXR/AXR: Extremely low lung volumes. Some bibasilar opacification which could represent atelectasis and/or pneumonia and small bilateral pleural effusions, left possibly greater than right. Air seen throughout small bowel, few loops
borderline prominent, nonspecific air-fluid levels, most likely representing ileus. No free air.
Care Review
Plan reviewed with: Physician (Dr. Ashley)
[2025-02-13] MEDS: NOVOLOG FLEXPEN-LOW RESISTANCE 1 UNITS SC (08:30)
[2025-02-13] MEDS: RETACRIT 10000 UNITS IV (09:48)
--- NOTE | 2025-02-13 10:18 | W.PN.NEPH.HD ---
Assessment
-
pt seen during HD
vitals stable sbp 160ra ge
UF as tolerated
cr slow increase pre HD no significant renal recovery noted and wt is increasing too
possible oliguric
next HD Monday
CVC functions well
high dose MEJIA for anemia
GI plans EGD
Progress Note - Hemodialysis
-
Date of Service: February 13, 2025
Duration: 30 minutes and 3 hours
Potassium Bath: 3
Calcium Bath: 2.5
Opti-Dialyzer: 160
Ultrafiltration: Other (1.5-2)
Blood Flow: 400
Dialysate Flow: 600
Heparin: no
EPO: [id number]
[2025-02-13] MEDS: VANCOCIN 150 IV (10:27)
[2025-02-13] MEDS: HEPARIN 4300 UNITS INTRACATH (11:25)
[2025-02-13 12:08] LABS: Glucose - Point of Care 123 mg/dl (70-99)
[2025-02-13] MEDS: NOVOLOG FLEXPEN-LOW RESISTANCE SC ×3 (12:44→22:19)
[2025-02-13] MEDS: LIDOCAINE 4% PATCH TOPICAL (12:45)
[2025-02-13] MEDS: NSS (PRESERVATIVE FREE) 10 ML IV ×2 (12:56→20:44)
[2025-02-13] MEDS: PROTONIX IV 40 MG IV ×2 (12:57→20:44)
--- NOTE | 2025-02-13 14:22 | W.PN.UPDATE ---
Update Note
Progress Note Update
EGD: SEVERE esophagitis entire esophagus, biopsied gently for hsv, cmv visually placed dobhoff
plan:
IV PPI bid
can continue carafate
would use dobhoff for tube feeds
--- NOTE | 2025-02-13 14:48 | CM ---
CM continues to follow for discharge to SNF ([facility] vs. [facility] pending bed availability/acceptance). Pt had dialysis today; next dialysis planned for Monday. Plan for EGD due to severe esophagitis; dobhoff placed and to be used for tube
feeds.
--- NOTE | 2025-02-13 14:57 | W.PN.UPDATE ---
Addendum entered and electronically signed by CAPRICE Bryant 02/13/25 16:49:
X ray confirms placement in stomach-- wire removed. ok to use for feeds and meds. Still attempted to pull at time will add restraints as needed to prevent pulling at tube. update family and nursing staff.
Original Note:
Update Note
Progress Note Update
DHT placed during EGD and pt pulled out. Replaced while pt in PACU to left nare at 65cm. confirmed with air insufflation. Will check X ray to confirm placement. Pt instructed on not pulling at tube.
[2025-02-13 17:58] LABS: Glucose - Point of Care 139 mg/dl (70-99)
[2025-02-13] MEDS: TYLENOL SUSPENSION 975 MG TUBE ×2 (18:12→22:21)
[2025-02-13] MEDS: VITAMIN B1 100 MG TUBE (18:13)
[2025-02-13] MEDS: LIPITOR 10 MG TUBE (18:13)
[2025-02-13] MEDS: NOVOLOG FLEXPEN 3 UNITS SC (18:14)
[2025-02-13] MEDS: CARAFATE SUSPENSION 1 GM TUBE ×2 (18:14→22:20)
[2025-02-13] MEDS: STERILE WATER FOR INJECTION IV (18:19)
--- NOTE | 2025-02-13 20:00 | PTCARENOTE ---
day shift note. pt recieved dialysis this am then had upper endo. upon return from GI pt drowsy. dobhoff in place in left nare. guide wire removed by NAILHEAD PUNCHER and tube feedings initiated. heparin drip resumed at 1900 per order. wrist restraints ordered
and applied as pt pulled dobhoff tube in pacu .
[2025-02-13] MEDS: LOPRESSOR 25 MG TUBE (20:45)
--- NOTE | 2025-02-13 21:00 | PTCARENOTE ---
pt received from daystulioft RN. pt is drowsy, arousable to verbal stimuli. b/l wrist restraints in place, see order. heparin gtt running via right midline. running at 1600 u/hr. assessment as documented. call light in reach.
[2025-02-13 21:51] LABS: Glucose - Point of Care 139 mg/dl (70-99)
[2025-02-13] MEDS: LANTUS 0.15 UNITS SC (22:20)
[2025-02-14] VITALS (14 sets, daily range): BP systolic 118–161; BP diastolic 50–89; PULSE 76–78; O2SAT 92–93; BMI 30.8
[2025-02-14 00:30] LABS: Glucose - Point of Care 157 mg/dl (70-99)
[2025-02-14 02:02] LABS: APTT 80.4 Sec (23.4-35.0)
[2025-02-14 05:34] LABS: Hematocrit 25.5 % (39.0-52.0); Hemoglobin 8.3 g/dL (13.0-18.0); Mean Corp Hgb Conc. 32.5 g/dL (33.0-37.0); Mean Corpuscular Volume 90.1 fL (80.0-94.0); Nucleated Red Blood Cells % 0 % (-); Platelet Count 171 10^3/uL (130-400); Red Cell Dist. Width 15.1 % (11.5-14.5)
[2025-02-14 05:39] LABS: Glucose - Point of Care 219 mg/dl (70-99)
[2025-02-14 05:50] LABS: Blood Urea Nitrogen 26 mg/dl (9-20); Calcium 7.6 mg/dl (8.4-10.2); Carbon Dioxide 31 mmol/L (22-30); Chloride 101 mmol/L (98-107); Estimated Creatinine Clearance 28 ml/min; Glucose 189 mg/dl (70-99); Magnesium 1.6 mg/dl (1.6-2.3); Potassium 3.6 mmol/L (3.5-5.1); Sodium 134 mmol/L (135-145); eGFR 25.65
--- NOTE | 2025-02-14 07:15 | W.PN.HOSP.TC ---
Today's Communication/Plan
-
Continue Vancomycin
Continue tube feeds
Aspiration precautions
Will likely need to adjust/increase Insulin depending on glucose trends
Assessment / Plan
Assessment / Plan
Physical Exam
Gen-awake, alert, NAD
HEENT-NC, AT, anicteric, clear oral mm
Neck-supple
CV-reg, no M, +S1/S2
Lungs-clear B/L
Abd-soft, NT, ND
Ext-mild left upper extremity edema
Musculoskeletal-no cyanosis, left foot dressing intact
Skin-warm and dry
Neuro-grossly non-focal
Psych-calm, cooperative
Assessment/Plan
Aspiration pneumonitis/acute hypoxic respiratory failure - triggered by vomiting, possibly triggered by ileus. Oxygenation improved, now on room air.
Acute TME - due to sepsis, shock, critical illness. Mental status appears back to baseline.
Septic shock - due to to left fifth metatarsal abscess, acute osteomyelitis.
Chronic left lower extremity weakness due to back injury during procedure 2019
-IV vancomycin per ID.
-Shock resolved. Off vasopressors. Blood cultures negative so far. Wound culture shows MRSA.
-Leukocytosis improved overall. Afebrile.
-Unable to have MRI due to spinal stimulator not active
-Wound culture grew MRSA
-Patient underwent left partial fifth ray amputation 02/03. Podiatry following. Follow Pathology from bone margins. Wound culture from the OR shows MRSA.
PAD
-Per patient's , the PVD in his left leg is a lot more severe than his right leg
-CT angiogram done 02/01 shows multifocal atherosclerotic disease throughout the bilateral lower extremities. Diminished flow in the left anterior tibial artery with some apparent distal reconstitution, diminished flow at the distal aspect of the
left peroneal artery at the level of the ankle. Short segment high-grade stenosis of the distal right SFA.
-Vascular surgery has been having ongoing discussions with family regarding goals of care and decision for left lower extremity revascularization with potential risk for further renal deterioration.
-Possibly will have angiogram in the near future will depend on renal function.
Lactic acidosis due to sepsis/shock - normalized.
-Differential diagnosis include metformin induced versus worsening sepsis
-Metformin discontinued 02/01
-MAP has been consistently greater than 65
Acute kidney injury
- due to septic shock. Anuric. Gonzalez catheter was placed. Etiology of JESUS most likely due to septic shock and medications and less likely due to contrast-induced nephropathy as contrast exposure was on 02/01, creatinine was 3.3 morning of 02/01.
-Appreciate nephrology input, dialysis started 02/02. Dialysis IJ catheter was placed.
-High anion gap metabolic acidosis due to septic shock, lactic acidosis. Metabolic acidosis resolved. Off sodium bicarbonate IV.
-Hold metformin, lisinopril, hydrochlorothiazide, trend creatinine, no nephrotoxic drugs or NSAIDs
-Hemodialysis as per nephrology
-Holding angiogram until renal recovery can be determined
Ileus
- developed nausea and vomiting on 02/03. Briefly treated with NG tube.
- Repeat x-ray 02/07 showed air throughout the small bowel, few loops borderline prominent, nonspecific air-fluid levels, most likely ileus. No free air.
- Held narcotics/IV Dilaudid prn (started Tylenol for pain control instead)
- Patient having bowel movements
- Repeat x-ray from 02/12/25 was okay
Odynophagia secondary to Severe Esophagitis found on EGD 02/13/25
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
Poor PO Intake Secondary to Above
-GI performed EGD on 02/13/25: showed severe esophagitis
-Follow-up on biopsies from EGD
-Continue IV PPI BID and Carafate
-Recommendation from Dr. Juarez was to avoid ALL PO MEDS for now -- use tube feed for all enteral intake
-Dobhoff tube placed -- okay for clear as tolerated with tube feed
-Goal is slow advancement in oral diet and eventual removal of DHT when tolerating and odynophagia improving -- may take a few day for odynophagia to improve as severe esophagitis on EGD
-On discharge cont Protonix PO BID x 4 weeks then daily and carafate AC and HS with wean to BID in 2 weeks then daily x 2 weeks then stop
Acute GI bleed
-Exacerbated by anticoagulation with IV heparin. Cannot rule out stress ulcer. Bowel movement on 02/07/25 was blood-tinged and burgundy. GI following.
-Continue Protonix IV twice daily and Carafate. Transfuse Hgb to maintain Hgb>8.
-May have a component of esophagitis
Acute blood loss anemia
- due to GI bleed as above. Hemoglobin stable today. Monitor closely. Admission hemoglobin was 11.6. May have baseline chronic anemia of unclear etiology. Transfuse Hgb to maintain Hgb>8. Consent already obtained.
Mild Hematuria -- RESOLVED
- Noted on 02/12/25, later resolved while on Heparin Drip
- Monitor for now
Anemia of Chronic Kidney Disease
- Nephrology following and placed EPO order
LUE edema
LUE pain from needlesticks
- Doppler ultrasound negative for DVT.
- Ordered scheduled Tylenol 1000 mg Q8H (which is helping)
Acute on chronic heart failure with preserved ejection fraction
- Cardiology saw patient this hospitalization, continue dialysis as per nephrology
- Dr. Munoz is his systems mgr
Troponin elevation
- Suspect acute nonischemic myocardial injury due to septic shock. Troponins trended down.
Permanent atrial fibrillation with rapid ventricular response
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
-Continue Heparin Drip. Was on Xarelto prior to admission -- plan to transition back to oral anticoagulation once no further procedures planned
-Outpatient Toprol XL added back on 02/12/25
Known moderate nonobstructive coronary disease in 2021
-Continue statin
2 consecutive episodes of VT overnight 02/10/25 to 02/11/25
-Cardiology following
-Outpatient Toprol XL added back on 02/12/25 -- changed to Lopressor on 02/13/25 given that Toprol cannot be given by tube feeds
-Monitor in IMU
Hyponatremia
- Resolved.
Hyperphosphatemia
- due to JESUS. Improving. Repeat phosphorus normal.
DM 2 with hyperglycemia
-At home he was on insulin degludec 24 units at bedtime, NovoLog sliding scale with meals, metformin.
-Hemoglobin A1c 7.1 on 01/13/2025
-Hold metformin 1000 mg daily due to JESUS and lactic acidosis earlier this hospitalization
-Currently glucose levels are acceptable
-Continue Lantus 15 units at bedtime -- may need to increase this since now on tube feeds. Short-acting Insulin every 6 hours given continuous tube feeds.
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
Essential hypertension
- Continue antihypertensives
Hyperlipidemia
- Was on lovastatin prior to admission -- continue this or equivalent statin for it's cardioprotective effects and hyperlipidemia history
Chronic back pain
-Patient sees a pain management provider outpatient
Obesity due to excess calories
DVT Prophylaxis: SCDs. Heparin Drip.
Code Status: Full code
PT/OT -Eventual SNF when medically stable.
On February 12, 2025, I spoke extensively with patient's son, patient's daughter, and through patient's daughter's speaker phone, I also spoke extensively with patient's . I answered all of their questions and concerns to satisfaction.
On February 13, 2025, I spoke with patient's over the phone and we discussed patient's current medical status and tube feeds and esophagitis. I answered all of her questions and concerns to satisfaction.
Anticipated Discharge: > 48 hours
Subjective/Interval History
-
Date of Service: February 14, 2025
Patient was seen and examined. He denied any new symptoms. Nurse reported that he was trying to pull out his Dobhoff tube therefore restraints had to be placed overnight.
Objective Data
-
Labs:
Laboratory Results
02/14/25 02/14/25 02/14/25
01:32 05:04 07:35
WBC 8.5
Hgb 8.3 L
Hct 25.5 L
Plt Count 171
APTT 80.4 H Pending
Sodium 134 L
Potassium 3.6
Chloride 101
Carbon Dioxide 31 H
BUN 26 H
Creatinine 2.5 H
Glucose 189 H
Calcium 7.6 L
Vital Signs:
Vital Signs
Temp Pulse Resp BP Pulse Ox
97.4 F 80 15 142/69 98
02/14/25 03:45 02/14/25 06:00 02/14/25 06:00 02/14/25 06:00 02/14/25 06:00
I&O
02/13/25 02/14/25 02/15/25
06:59 06:59 06:59
Intake Total 400 / 400
Output Total 145 / 145 200 / 200
Balance 255 / 255 -200 / -200
[2025-02-14 08:08] LABS: Glucose - Point of Care 240 mg/dl (70-99)
[2025-02-14] MEDS: NOVOLOG FLEXPEN SC (08:14)
[2025-02-14] MEDS: TYLENOL SUSPENSION 975 MG TUBE ×3 (08:14→21:10)
[2025-02-14] MEDS: NOVOLOG FLEXPEN-LOW RESISTANCE SC (08:14)
[2025-02-14] MEDS: LIDOCAINE 4% PATCH 1 PATCH TOPICAL (08:15)
[2025-02-14] MEDS: PROTONIX IV 40 MG IV ×2 (08:15→20:06)
[2025-02-14] MEDS: LOPRESSOR 25 MG TUBE ×2 (08:16→20:06)
[2025-02-14] MEDS: CARAFATE SUSPENSION 1 GM TUBE ×4 (08:16→21:06)
[2025-02-14] MEDS: VITAMIN B1 100 MG TUBE (08:16)
[2025-02-14] MEDS: NSS (PRESERVATIVE FREE) 10 ML IV ×2 (08:16→20:06)
[2025-02-14 08:19] LABS: APTT 70.7 Sec (23.4-35.0)
--- NOTE | 2025-02-14 08:23 | W.PN.NEPH.PH ---
Today's Communication / Plan
-
Dialysis tomorrow
Assessment/Plan
-
IMP:
TME
Septic shock
Lactic acidosis
Sepsis 2/2 to Diabetic left foot cellulitis w/ lymphangitis
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
Acute kidney injury-baseline cr 0.9-1.1
Peripheral artery disease
hyponatremia
IDDM 2
Essential hypertension
Constipation
A-fib�permanent
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
HLD
Obesity due to excess calories
Plan:
JESUS-no recovery noted since pre HD cr still uprising
s/p tunneled catheter on 02/11
next HD tomorrow , orders provided
there certainly could be some recovery of renal function, but would not let this possibility delay plans for rehab
Now with feeding tube secondary to esophagitis
holding Agram until renal recovery can be determined
follow h/h
cont abx per ID
plan rehab
-
-
Date of Service: February 14, 2025
CC / HPI / ROS
-
Chief Complaint:
JESUS
History of Present Illness:
Urine output improved
JESUS/HD tolerated HD yesterday
BP stable
poor po intake now on tube feeds due to dysphagia/esophagitis
Review of Systems:
UOP not measured, seem to have few voids
no cp or sob noted
no fever
Labs
-
Labs:
WBC 8.5 10^3/uL (4.8-10.8) 02/14/25 05:04
RBC 2.83 10^6/uL (4.70-6.10) L 02/14/25 05:04
Hgb 8.3 g/dL (13.0-18.0) L 02/14/25 05:04
Hct 25.5 % (39.0-52.0) L 02/14/25 05:04
Plt Count 171 10^3/uL (130-400) 02/14/25 05:04
Sodium 134 mmol/L (135-145) L 02/14/25 05:04
Potassium 3.6 mmol/L (3.5-5.1) 02/14/25 05:04
Chloride 101 mmol/L (98-107) 02/14/25 05:04
Carbon Dioxide 31 mmol/L (22-30) H 02/14/25 05:04
BUN 26 mg/dl (9-20) H 02/14/25 05:04
Creatinine 2.5 mg/dL (0.7-1.3) H 02/14/25 05:04
eGFR 25.65 02/14/25 05:04
Glucose 189 mg/dl (70-99) H 02/14/25 05:04
Calcium 7.6 mg/dl (8.4-10.2) L 02/14/25 05:04
Phosphorus 3.7 mg/dl (2.5-4.5) 02/14/25 05:04
Fhn-Q-Iwcfctctsbh Pept > 56026 pg/ml 02/01/25 20:16
Albumin 2.7 g/dl (3.5-5.0) L 02/12/25 05:02
Physical Exam
-
Vital Signs:
Vital Signs
Temp Pulse Resp BP Pulse Ox
98 F 77 15 147/80 98
02/14/25 07:30 02/14/25 08:16 02/14/25 06:00 02/14/25 08:16 02/14/25 06:00
Cardiovascular:: Regular rate and rhythm
Respiratory:: Bilateral: CTA (anteriorly)
Lung Excursion:: Normal
Abdomen:: Nontender and Soft
Bowel Sounds:: Normal
Extremity Edema:: +1: Bilateral:
Gonzalez Catheter: No
Other Findings::
feeding tube
--- NOTE | 2025-02-14 08:45 | PHA.VAN.FU ---
Addendum entered and electronically signed by Jacinda Mccabe [facility] 02/14/25 08:58:
Agree with assessment and plan
Original Note:
Vancomycin Assessment / Plan
- Assessment
Hemodialysis Schedule: Other (new-start HD for JESUS)
WBC's are: WNL
In the past 24 hrs, patient has been: Afebrile
- Dosing Plan
Dosing by Level: Hold off on dosing today
- Monitoring Plan
Random Level: 02/15 0600
- Follow Up
Pharmacy will continue to follow.
Vancomycin Follow UP
- -
Patient Age: 79
Patient Sex: Male
Vancomycin Day #: 16
Indication: Skin And Soft Tissue
Requesting Provider: Dr. Archer/Dr. Maguire
Pertinent Antimicrobial Allergies:
NKDA
Height / Weight:
Height 5 ft 9 in
Actual Weight 94.489 kg
Pertinent Past Medical History: BMI ~30.5, DM 2
- Vital Signs / Lab Results
Temp Pulse Resp BP Pulse Ox
98 F 77 15 147/80 98
02/14/25 07:30 02/14/25 08:16 02/14/25 06:00 02/14/25 08:16 02/14/25 06:00
Lab Results - Hematology
02/12/25 02/13/25 02/14/25
05:02 04:49 05:04
WBC 9.6 10.3 8.5
Lab Results - Chemistry
02/12/25 02/13/25 02/14/25
05:02 04:49 05:04
BUN 29 H 38 H 26 H
Creatinine 2.4 H 2.9 H 2.5 H
Estimated Creat Clear 29 24 28
Albumin 2.7 L
Therapeutic Drug Monitoring
Random Vancomycin 15.3 ug/ml 02/13/25 04:49
--- NOTE | 2025-02-14 09:21 | W.PN.GI.CBS2 ---
Addendum entered and electronically signed by Evaristo Moss MD 02/14/25 10:31:
I saw and examined the patient.
The PA's note was reviewed and I agree with the note.
Comment:
Tolerating TF. Continue with PPI as noted below. Will s/o, call w/ questions.
Original Note:
Today's Communication / Plan
-
s/p EGD as noted with grade D esophagitis
bx pending
cont PPI BID
cont carafate
cont DHT feeding
abd distention improving and pt having stools
trend hbg with anemia
NSAID avoidance
cont senna BID but monitor for stools as Carafate can be constipating
goal is slow advancement in oral diet and eventual removal of DHT when tolerating and odynophagia improving -- may take a few day for odynophagia to improve as severe esophagitis on EGD
ok for clear as tolerated with tube feed
from GI standpoint will sign off-- call back if any issues on problems
on discharge cont Protonix PO BID x 4 weeks then daily and carafate AC and HS with wean to BID in 2 weeks then daily x 2 weeks then stop
Assessment / Plan
-
This patient is a 79-year-old man with a history of diabetes, septic shock and acute kidney injury. He was admitted to the ICU and had abdominal distention. He had complaints of odynophagia with EGD 02/13 with grade D esophagitis, with DHT placement
02/13 EGD - LA Grade D reflux esophagitis with no bleeding. Biopsied.
Dobhoff placed under direct visualization
- Normal stomach.
- Normal examined duodenum
bx pending
impression:
anemia
gib
odynophagia
decreased oral intake with DHT placed 02/13
abdominal distention- improving
nsaid use
other med issues:
-toe abscess/osteo
-PAD
-JESUS with HD start 02/02
-PNA
-DM
plan:
s/p EGD as noted with grade D esophagitis
bx pending
cont PPI BID
cont carafate
cont DHT feeding
abd distention improving and pt having stools
trend hbg with anemia
NSAID avoidance
cont senna BID but monitor for stools as Carafate can be constipating
goal is slow advancement in oral diet and eventual removal of DHT when tolerating and odynophagia improving -- may take a few day for odynophagia to improve as severe esophagitis on EGD
ok for clear as tolerated with tube feed
from GI standpoint will sign off-- call back if any issues on problems
on discharge cont Protonix PO BID x 4 weeks then daily and carafate AC and HS with wean to BID in 2 weeks then daily x 2 weeks then stop
Subjective
Subjective
Date of Service: February 14, 2025
02/14 brown stool, tolerating tube feeds no complaints
Objective
Data Reviewed
Laboratory Data:
Laboratory Results
02/14/25 05:04
02/14/25 05:04
Laboratory Results
PT 27.8 Sec (11.4-14.6) H 02/03/25 00:54
INR 2.59 02/03/25 00:54
APTT 70.7 Sec (23.4-35.0) H 02/14/25 07:57
Phosphorus 3.7 mg/dl (2.5-4.5) 02/14/25 05:04
Magnesium 1.6 mg/dl (1.6-2.3) 02/14/25 05:04
Total Bilirubin 0.8 mg/dl (0.2-1.3) 02/12/25 05:02
AST 21 U/L (17-59) 02/12/25 05:02
ALT 20 U/L (0-50) 02/12/25 05:02
Alkaline Phosphatase 135 U/L (38-126) H 02/12/25 05:02
Vital Signs and I&O:
Vital Signs
Temp Pulse Resp BP Pulse Ox
98 F 77 15 147/80 98
02/14/25 07:30 02/14/25 08:16 02/14/25 06:00 02/14/25 08:16 02/14/25 06:00
I&O
02/13/25 02/14/25 02/15/25
06:59 06:59 06:59
Intake Total 400 / 400
Output Total 145 / 145 200 / 200
Balance 255 / 255 -200 / -200
Physical Exam
Physical Exam
HEENT: Anicteric and Moist mucous membranes
Cardiology: Normal Sinus Rhythm
Pulmonary: Clear
GI: Soft, Non Distended and Non Tender
Neuro: Other (nods to most questions no complaints still with some odynophagia )
--- NOTE | 2025-02-14 10:03 | W.PN.ID1 ---
Date of Service
Date of Service: February 14, 2025
Today's Communication
Continue Vancomycin.
Assessment / Plan
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
. spine stimulator incompatible with MRI.
# PAD, left 5th ischemic toe
. s/p CT angiogram
. For endovascular intervention pending renal status, per Vascular
# Severe esophagitis
.02/14 s/p EGD, biopsies pending
# JESUS
. HD started 02/02
. Urine eos neg
# s/p septic shock
# s/p suspected pneumonia/aspiration, completed 7d cefepime
# DM2 with neuropathy
- Wound cx MRSA
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
OR cx's : MRSA
Bone path still pending
- Continue Vancomycin (d17), dosing by level
# Conditions [employer]
Diabetes mellitus type 2
Hypertension
Atrial fibrillation on Xarelto
pacemaker placement
Chronic pain with spinal stimulator, not active
Chronic left leg weakness due to history of back injury during lumbar procedure 2019
Lumbar laminectomy
Chief Complaint
-: Clinical Sepsis and Other (osteo of left fifth metatarsal)
Subjective / Review of Systems
DHT uncomfortable
Vital Signs / Physical Exam
Vital Signs
Vital Signs
Temp Pulse Resp BP Pulse Ox
98 F 77 14 147/80 97
02/14/25 07:30 02/14/25 08:16 02/14/25 08:00 02/14/25 08:16 02/14/25 08:00
Physical Exam
Constitutional: No Acute Distress
Eyes: Sclera Anicteric
Pulmonary: Clear (anteriorly)
Gastrointestinal: Soft and Non Tender
Extremities: Negative Edema
Neurological: AO x 3
Lines: HD Cath
Objective Data
Lab Data
Lab Results
02/14/25 05:04
02/14/25 05:04
ESR 78 mm/hour (0-20) H 01/28/25 12:23
PT 27.8 Sec (11.4-14.6) H 02/03/25 00:54
INR 2.59 02/03/25 00:54
APTT 70.7 Sec (23.4-35.0) H 02/14/25 07:57
Estimated Creat Clear 28 ml/min 02/14/25 05:04
Lactic Acid 1.7 mmol/L (0.7-2.0) 02/05/25 00:53
Total Bilirubin 0.8 mg/dl (0.2-1.3) 02/12/25 05:02
AST 21 U/L (17-59) 02/12/25 05:02
ALT 20 U/L (0-50) 02/12/25 05:02
Alkaline Phosphatase 135 U/L (38-126) H 02/12/25 05:02
C-Reactive Protein 228.10 mg/L (0.0-10.00) H 01/28/25 12:23
Most recent labs reviewed.
Micro Results:
02/03/25 21:30 Wound Culture - Final
Foot - Left Staph aureus MRSA
Gram Stain - Final
02/03/25 21:30 Anaerobic Culture - Final
Foot - Left NO ANAEROBES ISOLATED
02/03/25 21:30 Tissue Culture - Final
Foot - Left Staph aureus MRSA
Gram Stain - Final
02/02/25 13:44 Urine Culture - Final
Urine NO GROWTH
01/29/25 04:07 Blood Culture - Final
Blood/Venous No Growth - Final Report
01/28/25 12:24 Blood Culture - Final
Blood/Venous No Growth - Final Report
01/31/25 09:04 Wound Culture - Final
Foot - Left Staph aureus MRSA
Gram Stain - Final
02/01/25 19:47 Influenza Types A & B (GIFTY) - Final
Nasal Swab Negative for Influenza A & B, NAAT
Negative results must be combined with clinical observations
and patient history.
Nucleic Acid Amplification test (NAAT)performed on the
[employer] platform.
01/30/25 10:04 Wound Culture - Final
Foot - Left Staph aureus MRSA
Gram Stain - Final
01/28/25 17:44 MRSA Screen - Final
Nose No Methicillin Resistant Staphylococcus aureus isolated.
Imaging:
01/28/25 Left foot XRAY: No acute osseous abnormality. Mild soft tissue swelling along the lateral forefoot.
02/01/25 CXR: Hazy increased density over the left lower hemithorax, probably mainly due to a posteriorly layering pleural effusion.
02/03/25 CXR: Parenchymal opacity within the right lower lung and the left mid to lower lung, similar to recent radiograph. Main differential considerations of atelectasis and/or pneumonia.
02/04/25 CT LE: 1. Interval amputation of the phalanges of the left 5th toe and the 5th metatarsal head since the prior exam performed 02/01/2025.
2. Large soft tissue wound distal to the 5th metatarsal with soft tissue emphysema extending deep to the lateral cortex of the 4th metatarsal head.
3. Moderate subcutaneous edema throughout the left lower leg and thigh.
4. Moderate to severe calcific atherosclerotic plaque throughout the left lower extremity.
5. Small to moderate-sized left knee joint effusion.
6. Severe anasarca in the left lateral abdominal wall.
7. Moderate retroperitoneal and extraperitoneal edema in the pelvis.
8. Severe diffuse urinary bladder wall thickening with adjacent perivesical inflammation suggesting ACUTE CYSTITIS. Chronic urinary bladder outlet obstruction is also likely present given severe enlargement of the prostate gland.
9. Mild circumferential wall thickening and fluid distention of the rectum suggesting an acute prostatitis. Rectal tube in place.
02/07/25 CXR/AXR: Extremely low lung volumes. Some bibasilar opacification which could represent atelectasis and/or pneumonia and small bilateral pleural effusions, left possibly greater than right. Air seen throughout small bowel, few loops
borderline prominent, nonspecific air-fluid levels, most likely representing ileus. No free air.
[2025-02-14] MEDS: NOVOLOG FLEXPEN 3 UNITS SC (12:11)
[2025-02-14] MEDS: NOVOLOG FLEXPEN-LOW RESISTANCE 4 UNITS SC (12:12)
[2025-02-14 12:14] LABS: Glucose - Point of Care 309 mg/dl (70-99)
--- NOTE | 2025-02-14 14:16 | WOUNDNOTE ---
L FOOT (LATERAL)/5TH TOE RAY AMP WOUND
--- NOTE | 2025-02-14 14:16 | WOUNDNOTE ---
L 5TH TOE RAY AMP WOUND
--- NOTE | 2025-02-14 14:23 | WOUNDNOTE ---
[facility] RN Note: Patient's L foot dressing changed as ordered with help from ALLEN Scott. L foot wound looks about the same with mostly huang/black necrotic tissue, no odor, no surrounding erythema. Small serous drainage. Plan is possible arteriogram
next week if kidney function improved. Patient on NG tube feeding (DHT). Sacral skin intact. Perianal skin with mild MASD. Calazime applied. Protective sacral shaped silicone border foam applied to sacrum. Patient turned to R semi side lying
position with help from ALLEN Scott using a foam turning wedge and pillow. Patient on a Centrella Max air bed. Heels off bed with pillows with an air chair cushion on top under L calf. Nursing to change patient's L foot dressing on Monday.
Thomas to see patient again next week (possibly Monday). Vascular also following. Will follow peripherally as needed.
--- NOTE | 2025-02-14 14:45 | WOUNDNOTE ---
[facility] RN Note: Patient seen about 14:20. Patient's L foot dressing changed as ordered with help from ALLEN Scott. L foot wound looks about the same with mostly huang/black necrotic tissue, no odor, no surrounding erythema. Small serous drainage. Plan
is possible arteriogram next week if kidney function improved. Patient on NG tube feeding (DHT). Sacral skin intact. Perianal skin with mild MASD. Calazime applied. Protective sacral shaped silicone border foam applied to sacrum. Patient turned to R
semi side lying position with help from ALLEN Scott using a foam turning wedge and pillow. Patient on a Centrea Max air bed. Heels off bed with pillows with an air chair cushion on top under L calf. Nursing to change patient's L foot dressing on
Monday. Dr. Guzman to see patient again next week (possibly Monday). Vascular also following. Updated Angella [facility] PA via tiger text re: L foot wound appearance. Will follow peripherally as needed.
[2025-02-14 14:57] LABS: APTT 73.4 Sec (23.4-35.0)
[2025-02-14] MEDS: HEPARIN 25000 UNITS/250 ML IV (15:11)
--- NOTE | 2025-02-14 15:35 | PTCARENOTE ---
Wound care completed with WOC RN. PT turned using foam wedge plus pillow. Pt allowed RN and WOC RN to turn him but rang cervantes 15 min later stating he was not comfortable and wanted the wedge removed. Education provided, pt still insisted wedge be
removed. Family and pt educated on PI prevention. Wedge removed at pt's request
[2025-02-14] MEDS: LIPITOR 10 MG TUBE (17:39)
[2025-02-14] MEDS: NOVOLOG FLEXPEN-LOW RESISTANCE 8 UNITS SC (17:45)
[2025-02-14] MEDS: NOVOLOG FLEXPEN 4 UNITS SC ×2 (17:45→23:25)
[2025-02-14 17:53] LABS: Glucose - Point of Care 309 mg/dl (70-99)
[2025-02-14] MEDS: DUONEB 3 ML INH (19:39)
[2025-02-14] MEDS: REMOVE LIDOCAINE PATCH REMOVE (20:07)
[2025-02-14] MEDS: DESENEX/MITRAZOL/ZEASORB 1 APPLIC TOPICAL (21:05)
[2025-02-14] MEDS: LANTUS 0.15 UNITS SC (21:12)
[2025-02-14 21:22] LABS: APTT 79.5 Sec (23.4-35.0)
[2025-02-14 21:25] LABS: Glucose - Point of Care 292 mg/dl (70-99)
--- NOTE | 2025-02-14 22:17 | PTCARENOTE ---
Pt received at beginning of shift resting in bed. AAOx3. Drowsy but arousable. Forgetful. B/L wrist restraints on/all 4 side rails up. Restraint order renewed. Denies pain or discomfort. Heparin gtt infusing at 1700units/hr. Repeat PTT at 2100 79.4
(second w/i normal range). Next PTT entered for 0600. VSS. Temp 99.9. Afib on monitor rate controlled. 94% pox on RA. Left nare dobhoff intact, patent. TF infusing at 50ml/hr (goal) with 25ml/hr water flush. TF changed out. Pt attempted to use
urinal but 'lost feeling to go.' HD scheduled for tomorrow. Dressing to left foot c/d/i elevated on pillow and air cushion. Rest of assessment as documented. Pt received CHG bath. Linens changed. Maintained on Q2hr turns. Call cervantes remains within
reach. Will continue to monitor.
[2025-02-14] MEDS: NOVOLOG FLEXPEN-LOW RESISTANCE 3 UNITS SC (23:24)
[2025-02-15] VITALS (30 sets, daily range): BP systolic 87–147; BP diastolic 51–73; BMI 32.4
[2025-02-15] MEDS: HEPARIN 25000 UNITS/250 ML IV ×2 (00:32→16:45)
[2025-02-15 05:06] LABS: Glucose - Point of Care 240 mg/dl (70-99)
[2025-02-15] MEDS: NOVOLOG FLEXPEN-LOW RESISTANCE 2 UNITS SC ×2 (05:35→12:21)
[2025-02-15] MEDS: NOVOLOG FLEXPEN 4 UNITS SC ×4 (05:36→21:52)
[2025-02-15 05:56] LABS: APTT 79.7 Sec (23.4-35.0)
[2025-02-15 06:09] LABS: Hematocrit 24.6 % (39.0-52.0); Hemoglobin 8.3 g/dL (13.0-18.0); Mean Corp Hgb Conc. 33.7 g/dL (33.0-37.0); Mean Corpuscular Volume 88.8 fL (80.0-94.0); Nucleated Red Blood Cells % 0 % (-); Platelet Count 206 10^3/uL (130-400); Red Cell Dist. Width 14.8 % (11.5-14.5)
[2025-02-15 06:30] LABS: Blood Urea Nitrogen 42 mg/dl (9-20); Calcium 8.0 mg/dl (8.4-10.2); Carbon Dioxide 29 mmol/L (22-30); Chloride 101 mmol/L (98-107); Estimated Creatinine Clearance 22 ml/min; Glucose 218 mg/dl (70-99); Iron 51 ug/dl (49-181); Magnesium 1.8 mg/dl (1.6-2.3); Potassium 3.8 mmol/L (3.5-5.1); Sodium 134 mmol/L (135-145); eGFR 19.08
[2025-02-15 06:38] LABS: Ferritin 234.0 ng/ml (17.9-464.0)
[2025-02-15 06:39] LABS: Total Iron Binding Capacity 194 ug/dl (261-462)
[2025-02-15] MEDS: TYLENOL SUSPENSION 975 MG TUBE ×3 (07:23→21:52)
[2025-02-15] MEDS: CARAFATE SUSPENSION 1 GM TUBE ×4 (07:23→21:54)
[2025-02-15] MEDS: LIDOCAINE 4% PATCH TOPICAL ×2 (07:24→07:41)
[2025-02-15] MEDS: LOPRESSOR 25 MG TUBE ×2 (07:24→21:53)
[2025-02-15] MEDS: DESENEX/MITRAZOL/ZEASORB 1 APPLIC TOPICAL ×2 (07:24→21:53)
[2025-02-15] MEDS: PROTONIX IV 40 MG IV (07:25)
[2025-02-15] MEDS: NSS (PRESERVATIVE FREE) 10 ML IV (07:25)
--- NOTE | 2025-02-15 07:40 | PHA.VAN.FU ---
Vancomycin Assessment / Plan
- Assessment
Hemodialysis Schedule: Other (new-start HD for JESUS. HD today, 02/15)
WBC's are: Trending Up
In the past 24 hrs, patient has been: Afebrile
- Assessment - Therapeutic Drug Monitoring
Random Level: 14.2 ~ 43hrs post Vanc 750mg
- Dosing Plan
Continue: Dose by level post HD
Dosing by Level: Re-dose today (Vanc 750mg post HD)
- Monitoring Plan
Random Level: 02/16 AM
- Follow Up
Pharmacy will continue to follow.
Vancomycin Follow UP
- -
Patient Age: 79
Patient Sex: Male
Vancomycin Day #: 17
Indication: Skin And Soft Tissue
Requesting Provider: Dr. Archer/Dr. Maguire
Pertinent Antimicrobial Allergies:
NKDA
Height / Weight:
Height 5 ft 9 in
Actual Weight 99.3 kg
Pertinent Past Medical History: BMI ~30.5, DM 2
- Vital Signs / Lab Results
Temp Pulse Resp BP Pulse Ox
98.1 F 82 18 142/73 94
02/15/25 06:35 02/15/25 07:24 02/15/25 06:00 02/15/25 07:24 02/15/25 06:00
Lab Results - Hematology
02/13/25 02/14/25 02/15/25
04:49 05:04 05:30
WBC 10.3 8.5 12.1 H
Lab Results - Chemistry
02/13/25 02/14/25 02/15/25
04:49 05:04 05:30
BUN 38 H 26 H 42 H
Creatinine 2.9 H 2.5 H 3.2 H
Estimated Creat Clear 24 28 22
Therapeutic Drug Monitoring
Random Vancomycin 14.2 ug/ml 02/15/25 05:30
--- NOTE | 2025-02-15 08:43 | W.PN.HOSP.TC ---
Today's Communication/Plan
-
Continue tube feeds
Dialysis
Change IV Protonix to Prevacid SoluTab's
Assessment / Plan
Assessment / Plan
Physical Exam
Gen-awake, alert, NAD
HEENT-NC, AT, anicteric, clear oral mm
Neck-supple
CV-reg, no M, +S1/S2
Lungs-clear B/L
Abd-soft, NT, ND
Ext- left upper extremity edema
Musculoskeletal-no cyanosis, left foot dressing intact
Skin-warm and dry
Neuro-grossly non-focal
Psych-calm, cooperative
Aspiration pneumonitis/acute hypoxic respiratory failure - triggered by vomiting, possibly triggered by ileus. Oxygenation improved, now on room air.
Acute TME - due to sepsis, shock, critical illness. Mental status appears back to baseline.
Septic shock - due to to left fifth metatarsal abscess, acute osteomyelitis.
Chronic left lower extremity weakness due to back injury during procedure 2019
-IV vancomycin per ID.
-Shock resolved. Off vasopressors. Blood cultures negative so far. Wound culture shows MRSA.
-Leukocytosis improved overall. Afebrile.
-Unable to have MRI due to spinal stimulator not active
-Wound culture grew MRSA
-Patient underwent left partial fifth ray amputation 02/03. Podiatry following. Path report from 02/04 shows focal acute osteomyelitis, clean margin from left foot fifth ray.
PAD
-Per patient's , the PAD in his left leg is a lot more severe than his right leg
-CT angiogram done 02/01 shows multifocal atherosclerotic disease throughout the bilateral lower extremities. Diminished flow in the left anterior tibial artery with some apparent distal reconstitution, diminished flow at the distal aspect of the
left peroneal artery at the level of the ankle. Short segment high-grade stenosis of the distal right SFA.
-Vascular surgery has been having ongoing discussions with family regarding goals of care and decision for left lower extremity revascularization with potential risk for further renal deterioration.
-Possibly will have angiogram in the near future will depend on renal function.
Lactic acidosis due to sepsis/shock - normalized.
-Differential diagnosis include metformin induced versus worsening sepsis
-Metformin discontinued 02/01
-MAP has been consistently greater than 65
Acute kidney injury
- due to septic shock. Anuric. Gonzalez catheter was placed. Etiology of JESUS most likely due to septic shock and medications and less likely due to contrast-induced nephropathy as contrast exposure was on 02/01, creatinine was 3.3 morning of 02/01.
-Appreciate nephrology input, dialysis started 02/02. Dialysis IJ catheter was placed.
-High anion gap metabolic acidosis due to septic shock, lactic acidosis. Metabolic acidosis resolved. Off sodium bicarbonate IV.
-Hold metformin, lisinopril, hydrochlorothiazide, trend creatinine, no nephrotoxic drugs or NSAIDs
-Hemodialysis as per nephrology
-Holding angiogram until renal recovery can be determined
Weight is up at least 2 kg compared to 48 hours ago, left upper extremity more edematous.
Ileus
- developed nausea and vomiting on 02/03. Briefly treated with NG tube.
- Repeat x-ray 02/07 showed air throughout the small bowel, few loops borderline prominent, nonspecific air-fluid levels, most likely ileus. No free air.
- Held narcotics/IV Dilaudid prn (started Tylenol for pain control instead)
- Patient having bowel movements
- Repeat x-ray from 02/12/25 was okay
Odynophagia secondary to Severe Esophagitis found on EGD 02/13/25
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
Poor PO Intake Secondary to Above
-GI performed EGD on 02/13/25: showed severe esophagitis
-Follow-up on biopsies from EGD
-Continue IV PPI BID and Carafate
-Recommendation from Dr. Juarez was to avoid ALL PO MEDS for now -- use tube feed for all enteral intake
-Dobhoff tube placed -- okay for clear as tolerated with tube feed
-Goal is slow advancement in oral diet and eventual removal of DHT when tolerating and odynophagia improving -- may take a few day for odynophagia to improve as severe esophagitis on EGD
-On discharge cont Protonix PO BID x 4 weeks then daily and carafate AC and HS with wean to BID in 2 weeks then daily x 2 weeks then stop
Acute GI bleed/acute esophagitis
EGD performed 02/13 shows LA grade D reflux esophagitis without bleeding. Normal stomach, normal duodenum. Dobbhoff tube placed under direct visualization.
-Acute GI bleed exacerbated by anticoagulation with IV heparin.
-Continue PPI twice daily and Carafate. Transfuse Hgb to maintain Hgb>8.
Acute blood loss anemia
- due to GI bleed as above. Hemoglobin stable today. Monitor closely. Admission hemoglobin was 11.6. May have baseline chronic anemia of unclear etiology. Transfuse Hgb to maintain Hgb>8. Consent already obtained.
Mild Hematuria -- RESOLVED
- Noted on 02/12/25, later resolved while on Heparin Drip
- Monitor for now
Anemia of Chronic Kidney Disease
- Nephrology following and placed EPO order
LUE edema
LUE pain from needlesticks
- Doppler ultrasound negative for DVT.
- Ordered scheduled Tylenol 1000 mg Q8H (which is helping)
Acute on chronic heart failure with preserved ejection fraction
- Cardiology saw patient this hospitalization, continue dialysis as per nephrology
- Dr. Munoz is his electrical tester battery
Troponin elevation
- Suspect acute nonischemic myocardial injury due to septic shock. Troponins trended down.
Permanent atrial fibrillation -
-Continue Heparin Drip. Was on Xarelto prior to admission -- plan to transition back to oral anticoagulation once no further procedures planned
-Outpatient Toprol XL added back on 02/12/25
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
Known moderate nonobstructive coronary disease in 2021
-Continue statin
2 consecutive episodes of VT overnight 02/10/25 to 02/11/25
-Cardiology following
-Outpatient Toprol XL added back on 02/12/25 -- changed to Lopressor on 02/13/25 given that Toprol cannot be given by tube feeds
-Monitor in IMU
Hyponatremia
- Resolved.
Hyperphosphatemia
- due to JESUS. Improving. Repeat phosphorus normal.
DM 2 with hyperglycemia
-At home he was on insulin degludec 24 units at bedtime, NovoLog sliding scale with meals, metformin.
-Hemoglobin A1c 7.1 on 01/13/2025
-Hold metformin 1000 mg daily due to JESUS and lactic acidosis earlier this hospitalization
-Currently glucose levels are acceptable
-Continue Lantus 15 units at bedtime -- may need to increase this since now on tube feeds. Short-acting Insulin every 6 hours given continuous tube feeds.
-Dr. Pathak is his geospatial technologist
Essential hypertension
- Continue antihypertensives
Hyperlipidemia
- Was on lovastatin prior to admission -- continue this or equivalent statin for it's cardioprotective effects and hyperlipidemia history
Chronic back pain
-Patient sees a pain management provider outpatient
Obesity due to excess calories
DVT Prophylaxis: SCDs. Heparin Drip.
Code Status: Full code
Dispo -SNF when medically stable.
Anticipated Discharge: > 48 hours
Subjective/Interval History
-
Date of Service: February 15, 2025
Patient seen and examined. No complaints.
Objective Data
-
Labs:
Laboratory Results
02/14/25 02/15/25
21:02 05:30
WBC 12.1 H
Hgb 8.3 L
Hct 24.6 L
Plt Count 206 D
APTT 79.5 H 79.7 H
Sodium 134 L
Potassium 3.8
Chloride 101
Carbon Dioxide 29
BUN 42 H
Creatinine 3.2 H
Glucose 218 H
Calcium 8.0 L
Vital Signs:
Vital Signs
Temp Pulse Resp BP Pulse Ox
98.1 F 82 18 142/73 94
02/15/25 06:35 02/15/25 07:24 02/15/25 06:00 02/15/25 07:24 02/15/25 06:00
I&O
02/14/25 02/15/25 02/16/25
06:59 06:59 06:59
Intake Total 1204 / 1204
Output Total 200 / 200 300 / 300
Balance -200 / -200 904 / 904
Review of Systems
-
History Source: Patient
All other systems: Reviewed and negative
--- NOTE | 2025-02-15 08:51 | W.PN.NEPH.HD ---
Assessment
-
Patient seen on dialysis
Creatinine continues to rise between dialysis sessions as well as weights
Systolic blood pressure stable at 122 at current UF
Attempting to reduce weights, will decrease free water flushes and tube feeds
Iron stores on low side will provide IV iron with next dialysis
Progress Note - Hemodialysis
-
Date of Service: February 15, 2025
Duration: 30 minutes and 3 hours
Potassium Bath: 3
Calcium Bath: 2.5
Opti-Dialyzer: 160
Ultrafiltration: Other (3 kg as hemodynamically tolerate)
Blood Flow: 400
Dialysate Flow: 600
Heparin: Heparin drip
EPO: 10,000
[2025-02-15] MEDS: RETACRIT 10000 UNITS IV (09:07)
--- NOTE | 2025-02-15 09:48 | W.PN.ID1 ---
Date of Service
Date of Service: February 15, 2025
Today's Communication
Continue abx.
Assessment / Plan
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
. spine stimulator incompatible with MRI.
# PAD, left 5th ischemic toe
. s/p CT angiogram
. For endovascular intervention pending renal status, per Vascular
# Severe esophagitis
.02/14 s/p EGD, biopsies pending
# JESUS
. HD started 02/02
. Urine eos neg
# s/p septic shock
# s/p suspected pneumonia/aspiration, completed 7d cefepime
# DM2 with neuropathy
- Wound cx MRSA
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
OR cx's : MRSA
Bone path still pending
- Continue Vancomycin (d#18), dosing by level
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
Diabetes mellitus type 2
Hypertension
Atrial fibrillation on Xarelto
pacemaker placement
Chronic pain with spinal stimulator, not active
Chronic left leg weakness due to history of back injury during lumbar procedure 2019
Lumbar laminectomy
Chief Complaint
-: Clinical Sepsis and Other (osteo of left fifth metatarsal)
Subjective / Review of Systems
Patient seen and examined. No significant changes overnight.
Vital Signs / Physical Exam
Vital Signs
Vital Signs
Temp Pulse Resp BP Pulse Ox
98.1 F 82 18 142/73 94
02/15/25 06:35 02/15/25 07:24 02/15/25 06:00 02/15/25 07:24 02/15/25 06:00
Physical Exam
Constitutional: Comfortable and Non-toxic
Eyes: Sclera Anicteric
Pulmonary: Non Labored
Gastrointestinal: Non Tender and Non Distended
Extremities: Negative Edema
Neurological: AO x 3
Lines: HD Cath
Objective Data
Lab Data
Lab Results
02/15/25 05:30
02/15/25 05:30
ESR 78 mm/hour (0-20) H 01/28/25 12:23
PT 27.8 Sec (11.4-14.6) H 02/03/25 00:54
INR 2.59 02/03/25 00:54
APTT 79.7 Sec (23.4-35.0) H 02/15/25 05:30
Estimated Creat Clear 22 ml/min 02/15/25 05:30
Lactic Acid 1.7 mmol/L (0.7-2.0) 02/05/25 00:53
Total Bilirubin 0.8 mg/dl (0.2-1.3) 02/12/25 05:02
AST 21 U/L (17-59) 02/12/25 05:02
ALT 20 U/L (0-50) 02/12/25 05:02
Alkaline Phosphatase 135 U/L (38-126) H 02/12/25 05:02
C-Reactive Protein 228.10 mg/L (0.0-10.00) H 01/28/25 12:23
Most recent labs reviewed.
Micro Results:
02/03/25 21:30 Wound Culture - Final
Foot - Left Staph aureus MRSA
Gram Stain - Final
02/03/25 21:30 Anaerobic Culture - Final
Foot - Left NO ANAEROBES ISOLATED
02/03/25 21:30 Tissue Culture - Final
Foot - Left Staph aureus MRSA
Gram Stain - Final
02/02/25 13:44 Urine Culture - Final
Urine NO GROWTH
01/29/25 04:07 Blood Culture - Final
Blood/Venous No Growth - Final Report
01/28/25 12:24 Blood Culture - Final
Blood/Venous No Growth - Final Report
01/31/25 09:04 Wound Culture - Final
Foot - Left Staph aureus MRSA
Gram Stain - Final
02/01/25 19:47 Influenza Types A & B (GIFTY) - Final
Nasal Swab Negative for Influenza A & B, NAAT
Negative results must be combined with clinical observations
and patient history.
Nucleic Acid Amplification test (NAAT)performed on the
[employer] platform.
01/30/25 10:04 Wound Culture - Final
Foot - Left Staph aureus MRSA
Gram Stain - Final
01/28/25 17:44 MRSA Screen - Final
Nose No Methicillin Resistant Staphylococcus aureus isolated.
Imaging:
01/28/25 Left foot XRAY: No acute osseous abnormality. Mild soft tissue swelling along the lateral forefoot.
02/01/25 CXR: Hazy increased density over the left lower hemithorax, probably mainly due to a posteriorly layering pleural effusion.
02/03/25 CXR: Parenchymal opacity within the right lower lung and the left mid to lower lung, similar to recent radiograph. Main differential considerations of atelectasis and/or pneumonia.
02/04/25 CT LE: 1. Interval amputation of the phalanges of the left 5th toe and the 5th metatarsal head since the prior exam performed 02/01/2025.
2. Large soft tissue wound distal to the 5th metatarsal with soft tissue emphysema extending deep to the lateral cortex of the 4th metatarsal head.
3. Moderate subcutaneous edema throughout the left lower leg and thigh.
4. Moderate to severe calcific atherosclerotic plaque throughout the left lower extremity.
5. Small to moderate-sized left knee joint effusion.
6. Severe anasarca in the left lateral abdominal wall.
7. Moderate retroperitoneal and extraperitoneal edema in the pelvis.
8. Severe diffuse urinary bladder wall thickening with adjacent perivesical inflammation suggesting ACUTE CYSTITIS. Chronic urinary bladder outlet obstruction is also likely present given severe enlargement of the prostate gland.
9. Mild circumferential wall thickening and fluid distention of the rectum suggesting an acute prostatitis. Rectal tube in place.
02/07/25 CXR/AXR: Extremely low lung volumes. Some bibasilar opacification which could represent atelectasis and/or pneumonia and small bilateral pleural effusions, left possibly greater than right. Air seen throughout small bowel, few loops
borderline prominent, nonspecific air-fluid levels, most likely representing ileus. No free air.
[2025-02-15] MEDS: MANNITOL 25% 12.5 GRAMS IV (10:31)
[2025-02-15] MEDS: VANCOCIN 150 IV (10:37)
[2025-02-15] MEDS: HEPARIN 4300 UNITS INTRACATH (11:38)
[2025-02-15 12:22] LABS: Glucose - Point of Care 229 mg/dl (70-99)
[2025-02-15] MEDS: LIPITOR 10 MG TUBE (18:15)
[2025-02-15] MEDS: NOVOLOG FLEXPEN-LOW RESISTANCE 4 UNITS SC (18:15)
[2025-02-15 18:29] LABS: Glucose - Point of Care 316 mg/dl (70-99)
[2025-02-15 21:37] LABS: Glucose - Point of Care 287 mg/dl (70-99)
[2025-02-15] MEDS: NOVOLOG FLEXPEN-LOW RESISTANCE 3 UNITS SC (21:50)
[2025-02-15] MEDS: PREVACID 30 MG TUBE (21:53)
[2025-02-15] MEDS: REMOVE LIDOCAINE PATCH REMOVE (21:54)
[2025-02-15] MEDS: LANTUS 0.15 UNITS SC (21:55)
[2025-02-16] VITALS (12 sets, daily range): BP systolic 122–151; BP diastolic 56–73
--- NOTE | 2025-02-16 02:13 | PTCARENOTE ---
Pt received at beginning of shift resting in bed. Drowsy. Forgetful at times. B/L soft limb wrist restraints in place with all 4 side rails up. Restraints renewed. Pt denies pain or discomfort. Heparin gtt infusing at 1700 units/hr. Next PTT in am.
VSS. Afebrile. Afib on CM rate 70's-80's. POX RA 95%. Pt very tired but not sleeping. Requested urinal but 'lost sensation to void.' Incontinent x 2 soft brown/gelatinous bm. Received CHG bath all linens changed. Received HS meds through left nare
dobhoff without issue but dobhoff became clogged. Unable to clear. J Luis VASQUES TT'd and made aware. TF placed on hold. Will need to be changed out in am after discussion with J Luis CAN. Left leg dressing remains c/d/i. LE's elevated on pillow/air
cushion. Pt getting agitated at times that GI Dr's will be here any minute. It is currently 0200. Pt reoriented to time and when dr's will be on floor. Pt pulling covers off and taking off pox wire and kicking pillows away from legs. Pt repositioned
and appears comfortable at this time. Maintained on Q2hr turns. Call cervantes remains within reach of right hand. Pt is using call cervantes for assistance. Will continue to monitor.
[2025-02-16 05:13] LABS: Glucose - Point of Care 259 mg/dl (70-99)
[2025-02-16] MEDS: NOVOLOG FLEXPEN-LOW RESISTANCE 3 UNITS SC (05:38)
[2025-02-16] MEDS: NOVOLOG FLEXPEN 4 UNITS SC (05:39)
[2025-02-16] MEDS: HEPARIN 25000 UNITS/250 ML IV ×2 (05:39→20:36)
[2025-02-16 05:53] LABS: Hematocrit 24.1 % (39.0-52.0); Hemoglobin 7.9 g/dL (13.0-18.0); Mean Corp Hgb Conc. 32.8 g/dL (33.0-37.0); Mean Corpuscular Volume 91.3 fL (80.0-94.0); Nucleated Red Blood Cells % 0 % (-); Platelet Count 180 10^3/uL (130-400); Red Cell Dist. Width 15.0 % (11.5-14.5)
[2025-02-16 06:14] LABS: Blood Urea Nitrogen 35 mg/dl (9-20); Calcium 7.8 mg/dl (8.4-10.2); Carbon Dioxide 31 mmol/L (22-30); Chloride 102 mmol/L (98-107); Estimated Creatinine Clearance 26 ml/min; Glucose 236 mg/dl (70-99); Magnesium 1.7 mg/dl (1.6-2.3); Potassium 3.8 mmol/L (3.5-5.1); Sodium 135 mmol/L (135-145); eGFR 24.48
[2025-02-16 06:39] LABS: APTT 63.0 Sec (23.4-35.0)
--- NOTE | 2025-02-16 07:52 | W.PN.HOSP.TC ---
Today's Communication/Plan
-
Adjust insulin
Monitor hemoglobin
Assessment / Plan
Assessment / Plan
Physical Exam
Gen-awake, alert, NAD
HEENT-NC, AT, anicteric, clear oral mm
Neck-supple
CV-reg, no M, +S1/S2
Lungs-clear B/L
Abd-soft, NT, ND
Ext- left upper extremity edema
Musculoskeletal-no cyanosis, left foot dressing intact
Skin-warm and dry
Neuro-grossly non-focal
Psych-calm, cooperative
Aspiration pneumonitis/acute hypoxic respiratory failure - triggered by vomiting, possibly triggered by ileus. Oxygenation improved, now on room air.
Acute TME - due to sepsis, shock, critical illness. Mental status appears back to baseline.
Septic shock - due to to left fifth metatarsal abscess, acute osteomyelitis.
Chronic left lower extremity weakness due to back injury during procedure 2019
-IV vancomycin per ID.
-Shock resolved. Off vasopressors. Blood cultures negative so far. Wound culture shows MRSA.
-Leukocytosis improved overall. Afebrile.
-Unable to have MRI due to spinal stimulator not active
-Wound culture grew MRSA
-Patient underwent left partial fifth ray amputation 02/03. Podiatry following. Path report from 02/04 shows focal acute osteomyelitis, clean margin from left foot fifth ray.
PAD
-Per patient's , the PAD in his left leg is a lot more severe than his right leg
-CT angiogram done 02/01 shows multifocal atherosclerotic disease throughout the bilateral lower extremities. Diminished flow in the left anterior tibial artery with some apparent distal reconstitution, diminished flow at the distal aspect of the
left peroneal artery at the level of the ankle. Short segment high-grade stenosis of the distal right SFA.
-Vascular surgery has been having ongoing discussions with family regarding goals of care and decision for left lower extremity revascularization with potential risk for further renal deterioration.
-Possibly will have angiogram in the near future will depend on renal function.
Lactic acidosis due to sepsis/shock - normalized.
-Differential diagnosis include metformin induced versus worsening sepsis
-Metformin discontinued 02/01
-MAP has been consistently greater than 65
Acute kidney injury
- due to septic shock. Anuric. Gonzalez catheter was placed. Etiology of JESUS most likely due to septic shock and medications and less likely due to contrast-induced nephropathy as contrast exposure was on 02/01, creatinine was 3.3 morning of 02/01.
-Appreciate nephrology input, dialysis started 02/02. Dialysis IJ catheter was placed.
-High anion gap metabolic acidosis due to septic shock, lactic acidosis. Metabolic acidosis resolved. Off sodium bicarbonate IV.
-Hold metformin, lisinopril, hydrochlorothiazide, trend creatinine, no nephrotoxic drugs or NSAIDs
-Hemodialysis as per nephrology
-Holding angiogram until renal recovery can be determined
Weight seems unreliable
Ileus -resolved.
- developed nausea and vomiting on 02/03. Briefly treated with NG tube.
- Repeat x-ray 02/07 showed air throughout the small bowel, few loops borderline prominent, nonspecific air-fluid levels, most likely ileus. No free air.
- Held narcotics/IV Dilaudid prn (started Tylenol for pain control instead)
- Patient having bowel movements
- Repeat x-ray from 02/12/25 was okay
Odynophagia secondary to Severe Esophagitis found on EGD 02/13/25
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
Poor PO Intake Secondary to Above
-GI performed EGD on 02/13/25: showed severe esophagitis
-Follow-up on biopsies from EGD
-Continue IV PPI BID and Carafate
-Recommendation from Dr. Juarez was to avoid ALL PO MEDS for now -- use tube feed for all enteral intake
-Dobhoff tube placed -- okay for clear as tolerated with tube feed
-Goal is slow advancement in oral diet and eventual removal of DHT when tolerating and odynophagia improving -- may take a few day for odynophagia to improve as severe esophagitis on EGD
-On discharge cont Protonix PO BID x 4 weeks then daily and carafate AC and HS with wean to BID in 2 weeks then daily x 2 weeks then stop
Acute GI bleed/acute esophagitis
EGD performed 02/13 shows LA grade D reflux esophagitis without bleeding. Normal stomach, normal duodenum. Dobbhoff tube placed under direct visualization.
-Acute GI bleed exacerbated by anticoagulation with IV heparin.
-Continue PPI twice daily and Carafate.
Acute blood loss anemia
- due to GI bleed as above. Hemoglobin slowly drifting down, 7.9 today. Monitor closely. Admission hemoglobin was 11.6. May have baseline chronic anemia of unclear etiology. Check hemoglobin tomorrow and consider transfusion on dialysis if it
continues to drop. Discussed with nephrology.
Mild Hematuria -- RESOLVED
- Noted on 02/12/25, later resolved while on Heparin Drip
- Monitor for now
Anemia of Chronic Kidney Disease
- Nephrology following and placed EPO order
LUE edema
LUE pain from needlesticks
- Doppler ultrasound negative for DVT.
- Ordered scheduled Tylenol 1000 mg Q8H (which is helping)
Acute on chronic heart failure with preserved ejection fraction
- Cardiology saw patient this hospitalization, continue dialysis as per nephrology
- Dr. Munoz is his yeast distiller
Troponin elevation
- Suspect acute nonischemic myocardial injury due to septic shock. Troponins trended down.
Permanent atrial fibrillation -
-Continue Heparin Drip. Was on Xarelto prior to admission -- plan to transition back to oral anticoagulation once no further procedures planned
-Outpatient Toprol XL added back on 02/12/25
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
Known moderate nonobstructive coronary disease in 2021
-Continue statin
2 consecutive episodes of VT overnight 02/10/25 to 02/11/25
-Cardiology following
-Outpatient Toprol XL added back on 02/12/25 -- changed to Lopressor on 02/13/25 given that Toprol cannot be given by tube feeds
-Monitor in IMU
Hyponatremia
- Resolved.
Hyperphosphatemia
- due to JESUS. Improving. Repeat phosphorus normal.
DM 2 with hyperglycemia -hyperglycemia worsened by tube feeds.
-At home he was on insulin degludec 24 units at bedtime, NovoLog sliding scale with meals, metformin.
-Hemoglobin A1c 7.1 on 01/13/2025
-Hold metformin 1000 mg daily due to JESUS and lactic acidosis earlier this hospitalization
-Currently glucose levels are acceptable
Increase Lantus to 20 units at bedtime, increase aspart to 8 units every 6 hours.
-Dr. Pathak is his vamp liner
Essential hypertension
- Continue antihypertensives
Hyperlipidemia
- Was on lovastatin prior to admission -- continue this or equivalent statin for it's cardioprotective effects and hyperlipidemia history
Chronic back pain
-Patient sees a pain management provider outpatient
Obesity due to excess calories
DVT Prophylaxis: SCDs. Heparin Drip.
Code Status: Full code
Dispo -SNF when medically stable.
Anticipated Discharge: > 48 hours
Subjective/Interval History
-
Date of Service: February 16, 2025
Patient seen and examined. No new complaints.
Objective Data
-
Labs:
Laboratory Results
02/16/25 02/16/25
05:33 06:07
WBC 10.2
Hgb 7.9 L
Hct 24.1 L
Plt Count 180
APTT 63.0 H
Sodium 135
Potassium 3.8
Chloride 102
Carbon Dioxide 31 H
BUN 35 H
Creatinine 2.6 H
Glucose 236 H
Calcium 7.8 L
Vital Signs:
Vital Signs
Temp Pulse Resp BP Pulse Ox
98.3 F 73 15 131/70 95
02/16/25 07:47 02/16/25 05:25 08/17/25 05:25 02/16/25 05:25 02/15/25 22:00
I&O
02/15/25 02/16/25 02/17/25
06:59 06:59 06:59
Intake Total 1204 / 1204 604 / 604
Output Total 300 / 300
Balance 904 / 904 604 / 604
Review of Systems
-
History Source: Patient
All other systems: Reviewed and negative
[2025-02-16] MEDS: TYLENOL SUSPENSION 975 MG TUBE ×3 (08:15→21:08)
[2025-02-16] MEDS: PREVACID 30 MG TUBE ×2 (08:17→19:40)
[2025-02-16] MEDS: CARAFATE SUSPENSION 1 GM TUBE ×4 (08:17→21:08)
[2025-02-16] MEDS: LOPRESSOR 25 MG TUBE ×2 (08:17→19:40)
[2025-02-16] MEDS: DESENEX/MITRAZOL/ZEASORB 1 APPLIC TOPICAL ×2 (08:23→19:41)
[2025-02-16] MEDS: LIDOCAINE 4% PATCH 1 PATCH TOPICAL (08:24)
--- NOTE | 2025-02-16 08:39 | W.PN.NEPH.PH ---
Today's Communication / Plan
-
HD tomorrow
Transfuse on dialysis tomorrow
Assessment/Plan
-
IMP:
TME
Septic shock
Lactic acidosis
Sepsis 2/2 to Diabetic left foot cellulitis w/ lymphangitis
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
Acute kidney injury-baseline cr 0.9-1.1
Peripheral artery disease
hyponatremia
IDDM 2
Essential hypertension
Constipation
A-fib�permanent
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
HLD
Obesity due to excess calories
Plan:
JESUS-no recovery noted since pre HD cr still uprising
s/p tunneled catheter on 02/11
next HD tomorrow , orders provided, I am changing the patient to Monday as this will likely be his schedule upon discharge
Blood products can be administered tomorrow on dialysis
there certainly could be some recovery of renal function, but would not let this possibility delay plans for rehab
Now with feeding tube secondary to esophagitis
holding Agram until renal recovery can be determined
follow h/h
cont abx per ID
plan rehab
-
-
Date of Service: February 16, 2025
CC / HPI / ROS
-
Chief Complaint:
JESUS
History of Present Illness:
Urine output improved
JESUS/HD tolerated HD yesterday
BP stable
poor po intake now on tube feeds due to dysphagia/esophagitis
Hemoglobin dropped
Review of Systems:
UOP not measured, seem to have few voids
no cp or sob noted
no fever
Labs
-
Labs:
WBC 10.2 10^3/uL (4.8-10.8) 02/16/25 05:33
RBC 2.64 10^6/uL (4.70-6.10) L 02/16/25 05:33
Hgb 7.9 g/dL (13.0-18.0) L 02/16/25 05:33
Hct 24.1 % (39.0-52.0) L 02/16/25 05:33
Plt Count 180 10^3/uL (130-400) 02/16/25 05:33
Sodium 135 mmol/L (135-145) 02/16/25 05:33
Potassium 3.8 mmol/L (3.5-5.1) 02/16/25 05:33
Chloride 102 mmol/L (98-107) 02/16/25 05:33
Carbon Dioxide 31 mmol/L (22-30) H 02/16/25 05:33
BUN 35 mg/dl (9-20) H 02/16/25 05:33
Creatinine 2.6 mg/dL (0.7-1.3) H 02/16/25 05:33
eGFR 24.48 02/16/25 05:33
Glucose 236 mg/dl (70-99) H 02/16/25 05:33
Calcium 7.8 mg/dl (8.4-10.2) L 02/16/25 05:33
Phosphorus 2.7 mg/dl (2.5-4.5) 02/16/25 05:33
Xdj-Y-Ymxuecoesyt Pept > 51363 pg/ml 02/01/25 20:16
Albumin 2.7 g/dl (3.5-5.0) L 02/12/25 05:02
Physical Exam
-
Vital Signs:
Vital Signs
Temp Pulse Resp BP Pulse Ox
98.3 F 71 15 151/72 95
02/16/25 07:47 02/16/25 08:17 02/16/25 05:25 02/16/25 08:17 02/15/25 22:00
Cardiovascular:: Regular rate and rhythm
Respiratory:: Bilateral: CTA (anteriorly)
Lung Excursion:: Normal
Abdomen:: Nontender and Soft
Bowel Sounds:: Normal
Extremity Edema:: +1: Bilateral:
Gonzalez Catheter: No
Other Findings::
feeding tube
--- NOTE | 2025-02-16 08:55 | PTCARENOTE ---
Assumed care of Pt at shift change. Pt resting comfortably in bed; Bilateral wrist restraints in place to prevent Pt from self removing dobhoff tube. Dobhoff tube clogged over night and unable to run tube feeds. Warm water flushed through line
and was able to clear clog from line. Tube feeds restarted. Pt reports pain in lower left side of back - Tylenol given via dobhoff tube and lidocaine patch applied. Will continue to monitor and assess.
--- NOTE | 2025-02-16 09:16 | PHA.VAN.FU ---
Vancomycin Assessment / Plan
- Assessment
Hemodialysis Schedule: MWF (new-start HD for JESUS. HD today, 02/15)
WBC's are: Trending Down
In the past 24 hrs, patient has been: Afebrile
- Assessment - Therapeutic Drug Monitoring
Random Level: 14.1 ~ 19hrs post Vanc 750mg
- Dosing Plan
Continue: Dose by level post HD
- Monitoring Plan
Random Level: 02/17 AM
- Follow Up
Pharmacy will continue to follow.
Vancomycin Follow UP
- -
Patient Age: 79
Patient Sex: Male
Vancomycin Day #: 18
Indication: Skin And Soft Tissue
Requesting Provider: Dr. Archer/Dr. Maguire
Pertinent Antimicrobial Allergies:
NKDA
Height / Weight:
Height 5 ft 9 in
Actual Weight 92.1 kg
Pertinent Past Medical History: BMI ~30.5, DM 2
- Vital Signs / Lab Results
Temp Pulse Resp BP Pulse Ox
98.3 F 71 15 151/72 95
02/16/25 07:47 02/16/25 08:17 02/16/25 05:25 02/16/25 08:17 02/15/25 22:00
Lab Results - Hematology
02/14/25 02/15/25 02/16/25
05:04 05:30 05:33
WBC 8.5 12.1 H 10.2
Lab Results - Chemistry
02/14/25 02/15/25 02/16/25
05:04 05:30 05:33
BUN 26 H 42 H 35 H
Creatinine 2.5 H 3.2 H 2.6 H
Estimated Creat Clear 26
Therapeutic Drug Monitoring
Random Vancomycin 14.1 ug/ml 02/16/25 05:33
--- NOTE | 2025-02-16 09:29 | W.PN.ID1 ---
Date of Service
Date of Service: February 16, 2025
Today's Communication
Continue current antibiotics.
Assessment / Plan
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
. spine stimulator incompatible with MRI.
# PAD, left 5th ischemic toe
. s/p CT angiogram
. For endovascular intervention pending renal status, per Vascular
# Severe esophagitis
.02/14 s/p EGD, biopsies pending
# JESUS
. HD started 02/02
. Urine eos neg
# s/p septic shock
# s/p suspected pneumonia/aspiration, completed 7d cefepime
# DM2 with neuropathy
- Wound cx MRSA
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
OR cx's : MRSA
Bone path still pending
- Continue Vancomycin (d#19), dosing by level
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
Diabetes mellitus type 2
Hypertension
Atrial fibrillation on Xarelto
pacemaker placement
Chronic pain with spinal stimulator, not active
Chronic left leg weakness due to history of back injury during lumbar procedure 2019
Lumbar laminectomy
Chief Complaint
-: Clinical Sepsis and Other (osteo of left fifth metatarsal)
Subjective / Review of Systems
Review of Systems: No Fever
Vital Signs / Physical Exam
Vital Signs
Vital Signs
Temp Pulse Resp BP Pulse Ox
98.3 F 71 15 151/72 95
02/16/25 07:47 02/16/25 08:17 02/16/25 05:25 02/16/25 08:17 02/15/25 22:00
Physical Exam
Constitutional: Comfortable and Non-toxic
Eyes: Sclera Anicteric
Pulmonary: Non Labored
Gastrointestinal: Non Tender and Non Distended
Extremities: Negative Edema
Wound: Other (Left foot dressed. No significant erythema extending up the leg.)
Neurological: AO x 3
Lines: HD Cath
Objective Data
Lab Data
Lab Results
02/16/25 05:33
02/16/25 05:33
ESR 78 mm/hour (0-20) H 01/28/25 12:23
PT 27.8 Sec (11.4-14.6) H 02/03/25 00:54
INR 2.59 02/03/25 00:54
APTT 63.0 Sec (23.4-35.0) H 02/16/25 06:07
Estimated Creat Clear 26 ml/min 02/16/25 05:33
Lactic Acid 1.7 mmol/L (0.7-2.0) 02/05/25 00:53
Total Bilirubin 0.8 mg/dl (0.2-1.3) 02/12/25 05:02
AST 21 U/L (17-59) 02/12/25 05:02
ALT 20 U/L (0-50) 02/12/25 05:02
Alkaline Phosphatase 135 U/L (38-126) H 02/12/25 05:02
C-Reactive Protein 228.10 mg/L (0.0-10.00) H 01/28/25 12:23
Most recent labs reviewed.
Micro Results:
02/03/25 21:30 Wound Culture - Final
Foot - Left Staph aureus MRSA
Gram Stain - Final
02/03/25 21:30 Anaerobic Culture - Final
Foot - Left NO ANAEROBES ISOLATED
02/03/25 21:30 Tissue Culture - Final
Foot - Left Staph aureus MRSA
Gram Stain - Final
02/02/25 13:44 Urine Culture - Final
Urine NO GROWTH
01/29/25 04:07 Blood Culture - Final
Blood/Venous No Growth - Final Report
01/28/25 12:24 Blood Culture - Final
Blood/Venous No Growth - Final Report
01/31/25 09:04 Wound Culture - Final
Foot - Left Staph aureus MRSA
Gram Stain - Final
02/01/25 19:47 Influenza Types A & B (GIFTY) - Final
Nasal Swab Negative for Influenza A & B, NAAT
Negative results must be combined with clinical observations
and patient history.
Nucleic Acid Amplification test (NAAT)performed on the
[employer] platform.
01/30/25 10:04 Wound Culture - Final
Foot - Left Staph aureus MRSA
Gram Stain - Final
01/28/25 17:44 MRSA Screen - Final
Nose No Methicillin Resistant Staphylococcus aureus isolated.
Imaging:
01/28/25 Left foot XRAY: No acute osseous abnormality. Mild soft tissue swelling along the lateral forefoot.
02/01/25 CXR: Hazy increased density over the left lower hemithorax, probably mainly due to a posteriorly layering pleural effusion.
02/03/25 CXR: Parenchymal opacity within the right lower lung and the left mid to lower lung, similar to recent radiograph. Main differential considerations of atelectasis and/or pneumonia.
02/04/25 CT LE: 1. Interval amputation of the phalanges of the left 5th toe and the 5th metatarsal head since the prior exam performed 02/01/2025.
2. Large soft tissue wound distal to the 5th metatarsal with soft tissue emphysema extending deep to the lateral cortex of the 4th metatarsal head.
3. Moderate subcutaneous edema throughout the left lower leg and thigh.
4. Moderate to severe calcific atherosclerotic plaque throughout the left lower extremity.
5. Small to moderate-sized left knee joint effusion.
6. Severe anasarca in the left lateral abdominal wall.
7. Moderate retroperitoneal and extraperitoneal edema in the pelvis.
8. Severe diffuse urinary bladder wall thickening with adjacent perivesical inflammation suggesting ACUTE CYSTITIS. Chronic urinary bladder outlet obstruction is also likely present given severe enlargement of the prostate gland.
9. Mild circumferential wall thickening and fluid distention of the rectum suggesting an acute prostatitis. Rectal tube in place.
02/07/25 CXR/AXR: Extremely low lung volumes. Some bibasilar opacification which could represent atelectasis and/or pneumonia and small bilateral pleural effusions, left possibly greater than right. Air seen throughout small bowel, few loops
borderline prominent, nonspecific air-fluid levels, most likely representing ileus. No free air.
[2025-02-16 12:19] LABS: Glucose - Point of Care 206 mg/dl (70-99)
[2025-02-16] MEDS: NOVOLOG FLEXPEN 8 UNITS SC ×3 (12:40→23:58)
[2025-02-16] MEDS: NOVOLOG FLEXPEN-LOW RESISTANCE 2 UNITS SC ×2 (12:41→23:57)
[2025-02-16] MEDS: LIPITOR 10 MG TUBE (17:16)
[2025-02-16 18:12] LABS: Glucose - Point of Care 157 mg/dl (70-99)
[2025-02-16] MEDS: NOVOLOG FLEXPEN-LOW RESISTANCE 1 UNITS SC (18:27)
[2025-02-16] MEDS: REMOVE LIDOCAINE PATCH 1 PATCH REMOVE (19:41)
[2025-02-16] MEDS: LANTUS 0.2 UNITS SC (21:10)
[2025-02-16 23:24] LABS: APTT 102.1 Sec (23.4-35.0)
[2025-02-17] VITALS (28 sets, daily range): BP systolic 102–150; BP diastolic 48–96
[2025-02-17 00:08] LABS: Glucose - Point of Care 222 mg/dl (70-99)
[2025-02-17] MEDS: NOVOLOG FLEXPEN-LOW RESISTANCE 2 UNITS SC ×3 (05:38→17:39)
[2025-02-17] MEDS: NOVOLOG FLEXPEN 8 UNITS SC ×3 (05:38→17:40)
[2025-02-17 05:48] LABS: Glucose - Point of Care 203 mg/dl (70-99)
[2025-02-17 06:32] LABS: APTT 52.8 Sec (23.4-35.0)
--- NOTE | 2025-02-17 07:56 | PTCARENOTE ---
Assumed care of patient this AM. HD this morning with [facility]. Heparin drip early this AM 52.8. Drip increased from 1700 units to 1900 units as per protocol. Patient resting comfortable in bed with bilateral wrist restraints. Afib on monitor.
VS stable.
--- NOTE | 2025-02-17 08:41 | W.PN.HOSP.TC ---
Today's Communication/Plan
-
Advance oral diet as tolerated, continue tube feeds.
Assessment / Plan
Assessment / Plan
Gen-awake, alert, NAD
HEENT-NC, AT, anicteric, clear oral mm
Neck-supple
CV-reg, no M, +S1/S2
Lungs-clear B/L
Abd-soft, NT, ND
Ext- left upper extremity edema
Musculoskeletal-no cyanosis, left foot dressing intact
Skin-warm and dry
Neuro-grossly non-focal
Psych-calm, cooperative
Aspiration pneumonitis/acute hypoxic respiratory failure - triggered by vomiting, possibly triggered by ileus. Oxygenation improved, now on room air.
Acute TME - due to sepsis, shock, critical illness. Mental status appears back to baseline.
Septic shock - due to to left fifth metatarsal abscess, acute osteomyelitis.
Chronic left lower extremity weakness due to back injury during procedure 2019
-IV vancomycin per ID.
-Shock resolved. Off vasopressors. Blood cultures negative so far. Wound culture shows MRSA.
-Leukocytosis improved overall. Afebrile.
-Unable to have MRI due to spinal stimulator not active
-Wound culture grew MRSA
-Patient underwent left partial fifth ray amputation 02/03. Podiatry following. Path report from 02/04 shows focal acute osteomyelitis, clean margin from left foot fifth ray.
PAD
-Per patient's , the PAD in his left leg is a lot more severe than his right leg
-CT angiogram done 02/01 shows multifocal atherosclerotic disease throughout the bilateral lower extremities. Diminished flow in the left anterior tibial artery with some apparent distal reconstitution, diminished flow at the distal aspect of the
left peroneal artery at the level of the ankle. Short segment high-grade stenosis of the distal right SFA.
-Vascular surgery has been having ongoing discussions with family regarding goals of care and decision for left lower extremity revascularization with potential risk for further renal deterioration.
Patient prefers to hold off on lower extremity revascularization and risk of contrast exposure on kidney function. Wants to pursue in the future if needed.
Lactic acidosis due to sepsis/shock - normalized.
-Differential diagnosis include metformin induced versus worsening sepsis
-Metformin discontinued 02/01
-MAP has been consistently greater than 65
Acute kidney injury
- due to septic shock. Anuric. Gonzalez catheter was placed. Etiology of JESUS most likely due to septic shock and medications and less likely due to contrast-induced nephropathy as contrast exposure was on 02/01, creatinine was 3.3 morning of 02/01.
-Appreciate nephrology input, dialysis started 02/02. Dialysis IJ catheter was placed.
-High anion gap metabolic acidosis due to septic shock, lactic acidosis. Metabolic acidosis resolved. Off sodium bicarbonate IV.
-Hold metformin, lisinopril, hydrochlorothiazide, trend creatinine, no nephrotoxic drugs or NSAIDs
-Hemodialysis as per nephrology
-Holding angiogram until renal recovery can be determined
Weight seems unreliable
Ileus -resolved.
- developed nausea and vomiting on 02/03. Briefly treated with NG tube.
- Repeat x-ray 02/07 showed air throughout the small bowel, few loops borderline prominent, nonspecific air-fluid levels, most likely ileus. No free air.
- Held narcotics/IV Dilaudid prn (started Tylenol for pain control instead)
- Patient having bowel movements
- Repeat x-ray from 02/12/25 was okay
Odynophagia secondary to Severe Esophagitis found on EGD 02/13/25
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
Poor PO Intake Secondary to Above
-GI performed EGD on 02/13/25: showed severe esophagitis
-Follow-up on biopsies from EGD
-Continue IV PPI BID and Carafate
-Recommendation from Dr. Juarez was to avoid ALL PO MEDS for now -- use tube feed for all enteral intake
-Dobhoff tube placed -- okay for clear as tolerated with tube feed
-Goal is slow advancement in oral diet and eventual removal of DHT when tolerating and odynophagia improving -- may take a few day for odynophagia to improve as severe esophagitis on EGD
-On discharge cont Protonix PO BID x 4 weeks then daily and carafate AC and HS with wean to BID in 2 weeks then daily x 2 weeks then stop
Acute GI bleed/acute esophagitis
EGD performed 02/13 shows LA grade D reflux esophagitis without bleeding. Normal stomach, normal duodenum. Dobbhoff tube placed under direct visualization. Getting tube feeds. Currently at goal. Tolerating clears, advance as tolerated to soft
diet and then move Dobbhoff tube. Discussed with patient and nurse. Speech therapy to continue to follow.
-Acute GI bleed exacerbated by anticoagulation with IV heparin.
-Continue PPI twice daily and Carafate.
Acute blood loss anemia
- due to GI bleed as above. Hemoglobin slowly drifting down, 7.9 today. Monitor closely. Admission hemoglobin was 11.6. May have baseline chronic anemia of unclear etiology. Check hemoglobin tomorrow and consider transfusion on dialysis if it
continues to drop. Discussed with nephrology.
Mild Hematuria -- RESOLVED
- Noted on 02/12/25, later resolved while on Heparin Drip
- Monitor for now
Anemia of Chronic Kidney Disease
- Nephrology following and placed EPO order
LUE edema
LUE pain from needlesticks
- Doppler ultrasound negative for DVT.
- Ordered scheduled Tylenol 1000 mg Q8H (which is helping)
Acute on chronic heart failure with preserved ejection fraction
- Cardiology saw patient this hospitalization, continue dialysis as per nephrology
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
Troponin elevation
- Suspect acute nonischemic myocardial injury due to septic shock. Troponins trended down.
Permanent atrial fibrillation -
-Continue Heparin Drip. Was on Xarelto prior to admission -- plan to transition back to oral anticoagulation once no further procedures planned
-Outpatient Toprol XL added back on 02/12/25
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
Known moderate nonobstructive coronary disease in 2021
-Continue statin
2 consecutive episodes of VT overnight 02/10/25 to 02/11/25
-Cardiology following
-Outpatient Toprol XL added back on 02/12/25 -- changed to Lopressor on 02/13/25 given that Toprol cannot be given by tube feeds
-Monitor in IMU
Hyponatremia
- Resolved.
Hyperphosphatemia
- due to JESUS. Improving. Repeat phosphorus normal.
DM 2 with hyperglycemia -hyperglycemia worsened by tube feeds.
-At home he was on insulin degludec 24 units at bedtime, NovoLog sliding scale with meals, metformin.
-Hemoglobin A1c 7.1 on 01/13/2025
-Hold metformin 1000 mg daily due to JESUS and lactic acidosis earlier this hospitalization
-Currently glucose levels are acceptable
Increase Lantus to 20 units at bedtime, increase aspart to 8 units every 6 hours[address]
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
Essential hypertension
- Continue antihypertensives
Hyperlipidemia
- Was on lovastatin prior to admission -- continue this or equivalent statin for it's cardioprotective effects and hyperlipidemia history
Chronic back pain
-Patient sees a pain management provider outpatient
Obesity due to excess calories
DVT Prophylaxis: SCDs. Heparin Drip.
Code Status: Full code
Dispo -SNF when medically stable and tolerating oral diet.
Anticipated Discharge: > 48 hours
Subjective/Interval History
-
Date of Service: February 17, 2025
Patient seen and examined, no complaints.
Objective Data
-
Labs:
Laboratory Results
02/16/25 02/17/25 02/17/25
22:48 05:26 08:35
Hgb Pending
Hct Pending
APTT 102.1 H 52.8 H
Sodium Pending
Potassium Pending
Chloride Pending
Carbon Dioxide Pending
BUN Pending
Creatinine Pending
Glucose Pending
Calcium Pending
02/17/25
13:00
Hgb
Hct
APTT Pending
Sodium
Potassium
Chloride
Carbon Dioxide
BUN
Creatinine
Glucose
Calcium
Vital Signs:
Vital Signs
Temp Pulse Resp BP Pulse Ox
98.4 F 81 17 143/63 93
02/16/25 23:00 02/17/25 08:00 02/17/25 08:00 02/17/25 08:00 02/16/25 23:22
I&O
02/16/25 02/17/25 02/18/25
06:59 06:59 06:59
Intake Total 604 / 604 804 / 804
Output Total 275 / 275
Balance 604 / 604 529 / 529
Review of Systems
-
History Source: Patient
All other systems: Reviewed and negative
[2025-02-17 08:55] LABS: Hematocrit 24.9 % (39.0-52.0); Hemoglobin 8.0 g/dL (13.0-18.0)
[2025-02-17 09:07] LABS: Blood Urea Nitrogen 47 mg/dl (9-20); Calcium 8.5 mg/dl (8.4-10.2); Carbon Dioxide 32 mmol/L (22-30); Chloride 102 mmol/L (98-107); Estimated Creatinine Clearance 24 ml/min; Glucose 150 mg/dl (70-99); Potassium 3.3 mmol/L (3.5-5.1); Sodium 138 mmol/L (135-145); eGFR 21.47
[2025-02-17] MEDS: DESENEX/MITRAZOL/ZEASORB 1 APPLIC TOPICAL ×2 (09:11→20:50)
[2025-02-17] MEDS: CARAFATE SUSPENSION 1 GM TUBE ×4 (09:11→20:51)
[2025-02-17] MEDS: LIDOCAINE 4% PATCH 1 PATCH TOPICAL (09:12)
[2025-02-17] MEDS: PREVACID 30 MG TUBE ×2 (09:13→20:51)
[2025-02-17] MEDS: TYLENOL SUSPENSION 975 MG TUBE (09:15)
--- NOTE | 2025-02-17 09:18 | PHA.VAN.FU ---
Vancomycin Assessment / Plan
- Assessment
Hemodialysis Schedule: MWF (new-start HD for JESUS. HD today, 02/15)
WBC's are: WNL
In the past 24 hrs, patient has been: Afebrile
- Assessment - Therapeutic Drug Monitoring
Random Level: 10.5
- Dosing Plan
Dosing by Level: Re-dose today (vancomycin 750 mg x 1)
- Monitoring Plan
No level(s) ordered at this time: random level on 02/19 AM
- Follow Up
Pharmacy will continue to follow.
Vancomycin Follow UP
- -
Patient Age: 79
Patient Sex: Male
Vancomycin Day #: 19
Indication: Skin And Soft Tissue
Requesting Provider: Dr. Archer/Dr. Maguire
Pertinent Antimicrobial Allergies:
NKDA
Height / Weight:
Height 5 ft 9 in
Actual Weight 92.2 kg
Pertinent Past Medical History: BMI ~30.5, DM 2
- Vital Signs / Lab Results
Temp Pulse Resp BP Pulse Ox
98.4 F 81 17 143/63 93
02/16/25 23:00 02/17/25 08:00 02/17/25 08:00 02/17/25 08:00 02/16/25 23:22
Lab Results - Hematology
02/15/25 02/16/25
05:30 05:33
WBC 12.1 H 10.2
Lab Results - Chemistry
02/15/25 02/16/25 02/17/25
05:30 05:33 08:35
BUN 42 H 35 H 47 H
Creatinine 3.2 H 2.6 H 2.9 H
Estimated Creat Clear 24
Therapeutic Drug Monitoring
Random Vancomycin 10.5 ug/ml 02/17/25 08:35
[2025-02-17] MEDS: RETACRIT 10000 UNITS IV (09:45)
--- NOTE | 2025-02-17 10:53 | W.PN.NEPH.HD ---
Assessment
-
Seen on dialysis tolerating treatment
Discussed with daughter at bedside
No signs of improvement from my clinic standpoint at this time
Continue supportive care and monitoring
Next dialysis Monday
Progress Note - Hemodialysis
-
Date of Service: February 17, 2025
Duration: 30 minutes and 3 hours
Potassium Bath: 3
Calcium Bath: 2.5
Opti-Dialyzer: 160
Ultrafiltration: Other (3 kg as hemodynamically tolerate)
Blood Flow: 400
Dialysate Flow: 600
Heparin: Heparin drip
EPO: 10,000
[2025-02-17] MEDS: HEPARIN 25000 UNITS/250 ML IV (11:17)
--- NOTE | 2025-02-17 11:27 | PTCARENOTE ---
Patient currently receiving HD. Heparin drip infusing at 1900 units/hr 19/mls/hr. Next PTT at 1900. Patient's daughter in room at bedside. Nursing update provided. Restraints still in use.
[2025-02-17] MEDS: HEPARIN 4300 UNITS INTRACATH (11:58)
[2025-02-17 12:37] LABS: Hemoglobin 8.9 g/dL (13.0-18.0)
[2025-02-17] MEDS: LOPRESSOR TUBE (13:07)
[2025-02-17] MEDS: VANCOCIN 150 IV (13:20)
[2025-02-17] MEDS: FLUSH (NSS) 1 FLUSH IV (13:21)
[2025-02-17 13:29] LABS: Glucose - Point of Care 221 mg/dl (70-99)
--- NOTE | 2025-02-17 14:33 | W.PN.ID1 ---
Date of Service
Date of Service: February 17, 2025
Today's Communication
Continue Vancomycin x 6 weeks
Assessment / Plan
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
. spine stimulator incompatible with MRI.
# PAD, left 5th ischemic toe
. s/p CT angiogram
. For endovascular intervention pending renal status, per Vascular
# Severe esophagitis
.02/14 s/p EGD, biopsies pending
# JESUS
. HD started 02/02
. Urine eos neg
# s/p septic shock
# s/p suspected pneumonia/aspiration, completed 7d cefepime
# DM2 with neuropathy
- Wound cx MRSA
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
OR cx's : MRSA
Bone path proximal margin + osteomyelitis.
- Continue Vancomycin x 6 weeks from ray amp, through 03/16/25 , dosing by level
# Conditions FABRIC SOURCER
Diabetes mellitus type 2
Hypertension
Atrial fibrillation on Xarelto
pacemaker placement
Chronic pain with spinal stimulator, not active
Chronic left leg weakness due to history of back injury during lumbar procedure 2019
Lumbar laminectomy
Chief Complaint
-: Other (osteo of left fifth metatarsal)
Vital Signs / Physical Exam
Vital Signs
Vital Signs
Temp Pulse Resp BP Pulse Ox
97.9 F 85 17 122/68 93
02/17/25 07:25 02/17/25 11:00 02/17/25 11:00 02/17/25 11:00 02/16/25 23:22
Objective Data
Lab Data
Lab Results
02/17/25 11:57
02/17/25 08:35
ESR 78 mm/hour (0-20) H 01/28/25 12:23
PT 27.8 Sec (11.4-14.6) H 02/03/25 00:54
INR 2.59 02/03/25 00:54
APTT 52.8 Sec (23.4-35.0) H 02/17/25 05:26
Estimated Creat Clear 24 ml/min 02/17/25 08:35
Lactic Acid 1.7 mmol/L (0.7-2.0) 02/05/25 00:53
Total Bilirubin 0.8 mg/dl (0.2-1.3) 02/12/25 05:02
AST 21 U/L (17-59) 02/12/25 05:02
ALT 20 U/L (0-50) 02/12/25 05:02
Alkaline Phosphatase 135 U/L (38-126) H 02/12/25 05:02
C-Reactive Protein 228.10 mg/L (0.0-10.00) H 01/28/25 12:23
Most recent labs reviewed.
Micro Results:
02/03/25 21:30 Wound Culture - Final
Foot - Left Staph aureus MRSA
Gram Stain - Final
02/03/25 21:30 Anaerobic Culture - Final
Foot - Left NO ANAEROBES ISOLATED
02/03/25 21:30 Tissue Culture - Final
Foot - Left Staph aureus MRSA
Gram Stain - Final
02/02/25 13:44 Urine Culture - Final
Urine NO GROWTH
01/29/25 04:07 Blood Culture - Final
Blood/Venous No Growth - Final Report
01/28/25 12:24 Blood Culture - Final
Blood/Venous No Growth - Final Report
01/31/25 09:04 Wound Culture - Final
Foot - Left Staph aureus MRSA
Gram Stain - Final
02/01/25 19:47 Influenza Types A & B (GIFTY) - Final
Nasal Swab Negative for Influenza A & B, NAAT
Negative results must be combined with clinical observations
and patient history.
Nucleic Acid Amplification test (NAAT)performed on the
[employer] NOW platform.
01/30/25 10:04 Wound Culture - Final
Foot - Left Staph aureus MRSA
Gram Stain - Final
01/28/25 17:44 MRSA Screen - Final
Nose No Methicillin Resistant Staphylococcus aureus isolated.
Imaging:
01/28/25 Left foot XRAY: No acute osseous abnormality. Mild soft tissue swelling along the lateral forefoot.
02/01/25 CXR: Hazy increased density over the left lower hemithorax, probably mainly due to a posteriorly layering pleural effusion.
02/03/25 CXR: Parenchymal opacity within the right lower lung and the left mid to lower lung, similar to recent radiograph. Main differential considerations of atelectasis and/or pneumonia.
02/04/25 CT LE: 1. Interval amputation of the phalanges of the left 5th toe and the 5th metatarsal head since the prior exam performed 02/01/2025.
2. Large soft tissue wound distal to the 5th metatarsal with soft tissue emphysema extending deep to the lateral cortex of the 4th metatarsal head.
3. Moderate subcutaneous edema throughout the left lower leg and thigh.
4. Moderate to severe calcific atherosclerotic plaque throughout the left lower extremity.
5. Small to moderate-sized left knee joint effusion.
6. Severe anasarca in the left lateral abdominal wall.
7. Moderate retroperitoneal and extraperitoneal edema in the pelvis.
8. Severe diffuse urinary bladder wall thickening with adjacent perivesical inflammation suggesting ACUTE CYSTITIS. Chronic urinary bladder outlet obstruction is also likely present given severe enlargement of the prostate gland.
9. Mild circumferential wall thickening and fluid distention of the rectum suggesting an acute prostatitis. Rectal tube in place.
02/07/25 CXR/AXR: Extremely low lung volumes. Some bibasilar opacification which could represent atelectasis and/or pneumonia and small bilateral pleural effusions, left possibly greater than right. Air seen throughout small bowel, few loops
borderline prominent, nonspecific air-fluid levels, most likely representing ileus. No free air.
[2025-02-17 14:37] LABS: APTT 45.0 Sec (23.4-35.0)
--- NOTE | 2025-02-17 15:50 | PTOTSP ---
Speech Language Pathology
Pt now agreeable to dysphagia tx. Trialed puree, minced/moist solids, soft/bite sized solids, and thin liquids. Slightly prolonged mastication, but this was functional given additional time. No overt signs of aspiration. Very slight facial
grimace noted with cold liquids. Pt reported pain is significantly improved from last week.
Recommend:
(1) Advance to IDDSI Level 6 (soft/bite-sized) and thin liquids when ready to advance per MD
(2) Initiate IDDSI Level 5 (minced/moist) and thin liquids at this time (limited to this per MD at this time)
(3) Aspiration precautions: slow rate
(4) Meds as tolerated
(5) FREIGHT BREAKER to continue to follow
[2025-02-17] MEDS: LIPITOR 10 MG TUBE (17:19)
[2025-02-17] MEDS: TYLENOL ORAL SOLUTION 975 MG TUBE ×2 (17:20→20:51)
--- NOTE | 2025-02-17 17:26 | CM ---
Chart reviewed and corrections caseworker met with patient, patient is currently requiring restraints, Dobbhoff, new HD, needs follow up and placement when stable.
Plan; To follow with progress.
[2025-02-17 17:40] LABS: Glucose - Point of Care 244 mg/dl (70-99)
[2025-02-17] MEDS: TYLENOL SUSPENSION TUBE (17:47)
[2025-02-17] MEDS: LOPRESSOR 25 MG TUBE (20:51)
[2025-02-17] MEDS: REMOVE LIDOCAINE PATCH 1 PATCH REMOVE (20:53)
[2025-02-17 21:54] LABS: APTT 94.1 Sec (23.4-35.0)
[2025-02-17 22:42] LABS: Glucose - Point of Care 283 mg/dl (70-99)
[2025-02-17] MEDS: LANTUS 0.2 UNITS SC (22:58)
[2025-02-18] VITALS (16 sets, daily range): BP systolic 104–151; BP diastolic 46–75; PULSE 78–92; O2SAT 96; BMI 29.0
[2025-02-18] MEDS: HEPARIN 25000 UNITS/250 ML IV ×2 (00:27→12:42)
[2025-02-18] MEDS: NOVOLOG FLEXPEN-LOW RESISTANCE 4 UNITS SC ×2 (00:38→12:41)
[2025-02-18] MEDS: NOVOLOG FLEXPEN 8 UNITS SC ×3 (00:39→12:42)
[2025-02-18 00:49] LABS: Glucose - Point of Care 327 mg/dl (70-99)
--- NOTE | 2025-02-18 04:59 | PTCARENOTE ---
heparin gtt infusing at 2100. first ptt draw for this RN was therapeutic, waiting results of next ptt draw. assessment and vital signs as charted. call cervantes in reach.
[2025-02-18 05:27] LABS: APTT 100.9 Sec (23.4-35.0)
[2025-02-18 05:35] LABS: Glucose - Point of Care 204 mg/dl (70-99)
[2025-02-18] MEDS: NOVOLOG FLEXPEN-LOW RESISTANCE 2 UNITS SC ×2 (05:39→18:14)
[2025-02-18 06:19] LABS: Blood Urea Nitrogen 35 mg/dl (9-20); Calcium 8.7 mg/dl (8.4-10.2); Carbon Dioxide 29 mmol/L (22-30); Chloride 101 mmol/L (98-107); Estimated Creatinine Clearance 29 ml/min; Glucose 219 mg/dl (70-99); Potassium 3.9 mmol/L (3.5-5.1); Sodium 137 mmol/L (135-145); eGFR 31.63
--- NOTE | 2025-02-18 07:23 | PHA.VAN.FU ---
Addendum entered and electronically signed by Jacinda Mccabe [facility] 02/18/25 08:13:
Agree with assessment and plan
Original Note:
Vancomycin Assessment / Plan
- Assessment
Hemodialysis Schedule: MWF
Last Hemodialysis performed: Saturday 02/17
In the past 24 hrs, patient has been: Afebrile
- Dosing Plan
Dosing by Level: Hold off on dosing today
- Monitoring Plan
Random Level: 02/19 06
- Follow Up
Pharmacy will continue to follow.
Vancomycin Follow UP
- -
Patient Age: 79
Patient Sex: Male
Vancomycin Day #: 20
Indication: Skin And Soft Tissue
Requesting Provider: Dr. Archer/Dr. Maguire
Pertinent Antimicrobial Allergies:
NKDA
Height / Weight:
Height 5 ft 9 in
Actual Weight 88.989 kg
Pertinent Past Medical History: BMI ~30.5, DM 2
- Vital Signs / Lab Results
Temp Pulse Resp BP Pulse Ox
98.2 F 83 17 123/67 95
02/18/25 02:30 02/18/25 06:00 02/18/25 06:00 02/18/25 04:00 02/17/25 23:04
Lab Results - Hematology
02/16/25
05:33
WBC 10.2
Lab Results - Chemistry
02/16/25 02/17/25 02/18/25
05:33 08:35 04:57
BUN 35 H 47 H 35 H
Creatinine 2.6 H 2.9 H 2.1 H
Estimated Creat Clear
Therapeutic Drug Monitoring
Random Vancomycin 10.5 ug/ml 02/17/25 08:35
--- NOTE | 2025-02-18 09:57 | W.PN.ID1 ---
Date of Service
Date of Service: February 18, 2025
Today's Communication
Continue Vancomycin IV x 6 weeks.
Assessment / Plan
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
. spine stimulator incompatible with MRI.
# PAD, left 5th ischemic toe
. s/p CT angiogram
. Holding on vascular intervention at this time, per pt preference.
# Severe esophagitis
.02/14 s/p EGD, biopsies pending
# JESUS
. HD started 02/02
. Urine eos neg
# s/p septic shock
# s/p suspected pneumonia/aspiration, completed 7d cefepime
# DM2 with neuropathy
- Wound cx MRSA
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
OR cx's : MRSA
Bone path proximal margin + osteomyelitis.
- Continue Vancomycin x 6 weeks from ray amp, through 03/16/25.
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
Diabetes mellitus type 2
Hypertension
Atrial fibrillation on Xarelto
pacemaker placement
Chronic pain with spinal stimulator, not active
Chronic left leg weakness due to history of back injury during lumbar procedure 2019
Lumbar laminectomy
Chief Complaint
-: Other (osteo of left fifth metatarsal)
Subjective / Review of Systems
No acute issues
Vital Signs / Physical Exam
Vital Signs
Vital Signs
Temp Pulse Resp BP Pulse Ox
98.7 F 89 18 146/53 95
02/18/25 08:29 02/18/25 08:00 02/18/25 08:00 02/18/25 06:01 02/17/25 23:04
Physical Exam
Constitutional: No Acute Distress and Comfortable
Cardiovascular: Regular Rate and S1/S2
Pulmonary: Clear
Gastrointestinal: Soft, Non Tender, Non Distended and Normal Bowel Sounds
Extremities: Negative Edema
Neurological: AO x 3
Lines: HD Cath
Objective Data
Lab Data
Lab Results
02/17/25 11:57
02/18/25 04:57
ESR 78 mm/hour (0-20) H 01/28/25 12:23
PT 27.8 Sec (11.4-14.6) H 02/03/25 00:54
INR 2.59 02/03/25 00:54
APTT 100.9 Sec (23.4-35.0) H 02/18/25 04:57
Estimated Creat Clear 29 ml/min 02/18/25 04:57
Lactic Acid 1.7 mmol/L (0.7-2.0) 02/05/25 00:53
Total Bilirubin 0.8 mg/dl (0.2-1.3) 02/12/25 05:02
AST 21 U/L (17-59) 02/12/25 05:02
ALT 20 U/L (0-50) 02/12/25 05:02
Alkaline Phosphatase 135 U/L (38-126) H 02/12/25 05:02
C-Reactive Protein 228.10 mg/L (0.0-10.00) H 01/28/25 12:23
Most recent labs reviewed.
Micro Results:
02/03/25 21:30 Wound Culture - Final
Foot - Left Staph aureus MRSA
Gram Stain - Final
02/03/25 21:30 Anaerobic Culture - Final
Foot - Left NO ANAEROBES ISOLATED
02/03/25 21:30 Tissue Culture - Final
Foot - Left Staph aureus MRSA
Gram Stain - Final
02/02/25 13:44 Urine Culture - Final
Urine NO GROWTH
01/29/25 04:07 Blood Culture - Final
Blood/Venous No Growth - Final Report
01/28/25 12:24 Blood Culture - Final
Blood/Venous No Growth - Final Report
01/31/25 09:04 Wound Culture - Final
Foot - Left Staph aureus MRSA
Gram Stain - Final
02/01/25 19:47 Influenza Types A & B (GIFTY) - Final
Nasal Swab Negative for Influenza A & B, NAAT
Negative results must be combined with clinical observations
and patient history.
Nucleic Acid Amplification test (NAAT)performed on the
[employer] platform.
01/30/25 10:04 Wound Culture - Final
Foot - Left Staph aureus MRSA
Gram Stain - Final
01/28/25 17:44 MRSA Screen - Final
Nose No Methicillin Resistant Staphylococcus aureus isolated.
Imaging:
01/28/25 Left foot XRAY: No acute osseous abnormality. Mild soft tissue swelling along the lateral forefoot.
02/01/25 CXR: Hazy increased density over the left lower hemithorax, probably mainly due to a posteriorly layering pleural effusion.
02/03/25 CXR: Parenchymal opacity within the right lower lung and the left mid to lower lung, similar to recent radiograph. Main differential considerations of atelectasis and/or pneumonia.
02/04/25 CT LE: 1. Interval amputation of the phalanges of the left 5th toe and the 5th metatarsal head since the prior exam performed 02/01/2025.
2. Large soft tissue wound distal to the 5th metatarsal with soft tissue emphysema extending deep to the lateral cortex of the 4th metatarsal head.
3. Moderate subcutaneous edema throughout the left lower leg and thigh.
4. Moderate to severe calcific atherosclerotic plaque throughout the left lower extremity.
5. Small to moderate-sized left knee joint effusion.
6. Severe anasarca in the left lateral abdominal wall.
7. Moderate retroperitoneal and extraperitoneal edema in the pelvis.
8. Severe diffuse urinary bladder wall thickening with adjacent perivesical inflammation suggesting ACUTE CYSTITIS. Chronic urinary bladder outlet obstruction is also likely present given severe enlargement of the prostate gland.
9. Mild circumferential wall thickening and fluid distention of the rectum suggesting an acute prostatitis. Rectal tube in place.
02/07/25 CXR/AXR: Extremely low lung volumes. Some bibasilar opacification which could represent atelectasis and/or pneumonia and small bilateral pleural effusions, left possibly greater than right. Air seen throughout small bowel, few loops
borderline prominent, nonspecific air-fluid levels, most likely representing ileus. No free air.
[2025-02-18] MEDS: DESENEX/MITRAZOL/ZEASORB 1 APPLIC TOPICAL ×2 (10:12→20:27)
[2025-02-18] MEDS: CARAFATE SUSPENSION 1 GM TUBE ×3 (10:12→18:03)
[2025-02-18] MEDS: TYLENOL ORAL SOLUTION 975 MG TUBE (10:12)
[2025-02-18] MEDS: LIDOCAINE 4% PATCH 1 PATCH TOPICAL (10:13)
[2025-02-18] MEDS: LOPRESSOR 25 MG TUBE (10:13)
[2025-02-18] MEDS: PREVACID 30 MG TUBE (10:13)
--- NOTE | 2025-02-18 11:21 | W.PN.NEPH.PH ---
Today's Communication / Plan
-
Dialysis tomorrow
Assessment/Plan
-
IMP:
TME
Septic shock
Lactic acidosis
Sepsis 2/2 to Diabetic left foot cellulitis w/ lymphangitis
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
Acute kidney injury-baseline cr 0.9-1.1
Peripheral artery disease
hyponatremia
IDDM 2
Essential hypertension
Constipation
A-fib�permanent
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
HLD
Obesity due to excess calories
Plan:
JESUS-no recovery noted since pre HD cr still uprising
s/p tunneled catheter on 02/11
there certainly could be some recovery of renal function, but would not let this possibility delay plans for rehab
Now with feeding tube secondary to esophagitis
holding Agram until renal recovery can be determined
follow h/h
cont abx per ID
No acute need for dialysis today
Order dialysis for tomorrow
Continue monitoring for recovery is discussed with her daughter at the bedside
Ultrafiltration 3 L yesterday
Patient is incontinent so we will need accurate weights
-
-
Date of Service: February 18, 2025
CC / HPI / ROS
-
Chief Complaint:
JESUS
History of Present Illness:
Urine output improved
JESUS/HD tolerated HD yesterday
BP stable
poor po intake now on tube feeds due to dysphagia/esophagitis
Hemoglobin dropped
Review of Systems:
UOP not measured, seem to have few voids
no cp or sob noted
no fever
Labs
-
Labs:
WBC 10.2 10^3/uL (4.8-10.8) 02/16/25 05:33
RBC 2.64 10^6/uL (4.70-6.10) L 02/16/25 05:33
Hgb 8.9 g/dL (13.0-18.0) L 02/17/25 11:57
Hct 24.9 % (39.0-52.0) L 02/17/25 08:35
Plt Count 180 10^3/uL (130-400) 02/16/25 05:33
Sodium 137 mmol/L (135-145) 02/18/25 04:57
Potassium 3.9 mmol/L (3.5-5.1) 02/18/25 04:57
Chloride 101 mmol/L (98-107) 02/18/25 04:57
Carbon Dioxide 29 mmol/L (22-30) 02/18/25 04:57
BUN 35 mg/dl (9-20) H 02/18/25 04:57
Creatinine 2.1 mg/dL (0.7-1.3) H 02/18/25 04:57
eGFR 31.63 02/18/25 04:57
Glucose 219 mg/dl (70-99) H 02/18/25 04:57
Calcium 8.7 mg/dl (8.4-10.2) 02/18/25 04:57
Phosphorus 2.7 mg/dl (2.5-4.5) 02/16/25 05:33
Gzr-B-Myxifbvrddv Pept > 29615 pg/ml 02/01/25 20:16
Albumin 2.7 g/dl (3.5-5.0) L 02/12/25 05:02
Physical Exam
-
Vital Signs:
Vital Signs
Temp Pulse Resp BP Pulse Ox
98.7 F 84 27 151/63 95
02/18/25 08:29 02/18/25 10:08 02/18/25 10:08 02/18/25 10:08 02/17/25 23:04
Cardiovascular:: Regular rate and rhythm
Respiratory:: Bilateral: CTA (anteriorly)
Lung Excursion:: Normal
Abdomen:: Nontender and Soft
Bowel Sounds:: Normal
Extremity Edema:: +1: Bilateral:
Gonzalez Catheter: No
Other Findings::
feeding tube
[2025-02-18 12:07] LABS: Glucose - Point of Care 348 mg/dl (70-99)
--- NOTE | 2025-02-18 13:20 | W.PN.HOSP.TC ---
Today's Communication/Plan
-
Remove Dobbhoff tube
Soft diet, thin liquids, aspiration precautions
Continue IV heparin
Continue PT/OT
Adjust insulin doses
Monitor hemoglobin
Vascular surgery to reconsult
Assessment / Plan
Assessment / Plan
Gen-awake, alert, NAD
HEENT-NC, AT, anicteric, clear oral mm, Dobbhoff tube
Neck-supple
CV-reg, no M, +S1/S2
Lungs-clear B/L
Abd-soft, NT, ND
Ext- left upper extremity edema
Musculoskeletal-no cyanosis, left foot dressing intact
Skin-warm and dry
Neuro-grossly non-focal
Psych-calm, cooperative
Aspiration pneumonitis/acute hypoxic respiratory failure - triggered by vomiting, possibly triggered by ileus. Oxygenation improved, now on room air.
Acute TME - due to sepsis, shock, critical illness. Mental status appears back to baseline.
Septic shock - due to to left fifth metatarsal abscess, acute osteomyelitis. Sepsis and shock resolved.
Chronic left lower extremity weakness due to back injury during procedure 2019
-IV vancomycin per ID. Goal is 6 weeks of antibiotics.
-Shock resolved. Off vasopressors. Blood cultures negative so far. Wound culture shows MRSA.
-Leukocytosis improved overall. Afebrile.
-Unable to have MRI due to spinal stimulator not active
-Wound culture grew MRSA
-Patient underwent left partial fifth ray amputation 02/03. Podiatry following. Path report from 02/04 shows focal acute osteomyelitis, clean margin from left foot fifth ray.
PAD
-Per patient's , the PAD in his left leg is a lot more severe than his right leg
-CT angiogram done 02/01 shows multifocal atherosclerotic disease throughout the bilateral lower extremities. Diminished flow in the left anterior tibial artery with some apparent distal reconstitution, diminished flow at the distal aspect of the
left peroneal artery at the level of the ankle. Short segment high-grade stenosis of the distal right SFA.
-Vascular surgery has been having ongoing discussions with family regarding goals of care and decision for left lower extremity revascularization with potential risk for further renal deterioration.
Patient prefers to hold off on lower extremity revascularization and risk of contrast exposure on kidney function. Wants to pursue in the future if needed. I asked vascular surgery, Dr. Gonzalez, to revisit patient and discuss plan of care and to
include patient's .
Lactic acidosis due to sepsis/shock - normalized.
-Differential diagnosis include metformin induced versus worsening sepsis
-Metformin discontinued 02/01
-MAP has been consistently greater than 65
Acute kidney injury
- due to septic shock. Anuric. Gonzalez catheter was placed. Etiology of JESUS most likely due to septic shock and medications and less likely due to contrast-induced nephropathy as contrast exposure was on 02/01, creatinine was 3.3 morning of 02/01.
-Appreciate nephrology input, dialysis started 02/02. Dialysis IJ catheter was placed.
-High anion gap metabolic acidosis due to septic shock, lactic acidosis. Metabolic acidosis resolved. Off sodium bicarbonate IV.
-Hold metformin, lisinopril, hydrochlorothiazide, trend creatinine, no nephrotoxic drugs or NSAIDs
-Hemodialysis as per nephrology
-Holding angiogram until renal recovery can be determined
Weight seems unreliable
Ileus -resolved.
- developed nausea and vomiting on 02/03. Briefly treated with NG tube.
- Repeat x-ray 02/07 showed air throughout the small bowel, few loops borderline prominent, nonspecific air-fluid levels, most likely ileus. No free air.
- Held narcotics/IV Dilaudid prn (started Tylenol for pain control instead)
- Patient having bowel movements
- Repeat x-ray from 02/12/25 was okay
Odynophagia secondary to Severe Esophagitis found on EGD 02/13/25
Poor PO Intake Secondary to Above
-GI performed EGD on 02/13/25: showed severe esophagitis
Path report shows acute ulcerative esophagitis, immunohistochemical stains negative for HSV 1 and 2, CMV. No fungal organisms identified.
-Continue PPI BID and Carafate
-On discharge cont Protonix PO BID x 4 weeks then daily and carafate AC and HS with wean to BID in 2 weeks then daily x 2 weeks then stop
Acute GI bleed/acute esophagitis -GI bleed resolved. Stools have been brown.
EGD performed 02/13 shows LA grade D reflux esophagitis without bleeding. Normal stomach, normal duodenum. Dobbhoff tube clogged as per nursing. Now that patient tolerating soft diet can DC Dobbhoff tube.
-Acute GI bleed exacerbated by anticoagulation with IV heparin.
-Continue PPI twice daily and Carafate.
Acute blood loss anemia
- due to GI bleed as above. Hemoglobin slowly drifting down, but now has stabilized at 8.9. Monitor closely. Admission hemoglobin was 11.6. May have baseline chronic anemia of unclear etiology.
Suspect component of anemia related to critical illness as well as renal failure.
Mild Hematuria -- RESOLVED
- Noted on 02/12/25, later resolved while on Heparin Drip
- Monitor for now
LUE edema
LUE pain from needlesticks
- Doppler ultrasound negative for DVT.
- Ordered scheduled Tylenol 1000 mg Q8H (which is helping)
Acute on chronic heart failure with preserved ejection fraction
- Cardiology saw patient this hospitalization, continue dialysis as per nephrology
- Dr. Munoz is his barley steeper
Troponin elevation
- Suspect acute nonischemic myocardial injury due to septic shock. Troponins trended down.
Permanent atrial fibrillation -
-Continue Heparin Drip. Was on Xarelto prior to admission -- plan to transition back to oral anticoagulation once no further procedures planned
-Outpatient Toprol XL added back on 02/12/25
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
Known moderate nonobstructive coronary disease in 2021
-Continue statin
2 consecutive episodes of VT overnight 02/10/25 to 02/11/25
-Cardiology following
-Outpatient Toprol XL added back on 02/12/25 -- changed to Lopressor on 02/13/25 given that Toprol cannot be given by tube feeds
-Monitor in IMU
Hyponatremia
- Resolved.
Hyperphosphatemia
- due to JESUS. Improving. Repeat phosphorus normal.
DM 2 with hyperglycemia -hyperglycemia worsened by tube feeds. Tube feeds are now off.
-At home he was on insulin degludec 24 units at bedtime, NovoLog sliding scale with meals, metformin.
-Hemoglobin A1c 7.1 on 01/13/2025
-Hold metformin 1000 mg daily due to JESUS and lactic acidosis earlier this hospitalization
Increase Lantus to 24 units at bedtime, increase aspart to 12 units AC
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
Essential hypertension
- Continue antihypertensives
Hyperlipidemia
- Was on lovastatin prior to admission -- continue this or equivalent statin for it's cardioprotective effects and hyperlipidemia history
Chronic back pain
-Patient sees a pain management provider outpatient
Obesity due to excess calories
DVT Prophylaxis: SCDs. Heparin Drip.
Code Status: Full code
Dispo -SNF when medically stable and tolerating oral diet. Updated patient's on the phone. She is requesting vascular surgery to stop by to discuss revascularization. [place] text sent to Dr. Gonzalez.
Anticipated Discharge: > 48 hours
Subjective/Interval History
-
Date of Service: February 18, 2025
Patient seen and examined. No new complaints.
Objective Data
-
Labs:
Laboratory Results
02/18/25
04:57
APTT 100.9 H
Sodium 137
Potassium 3.9
Chloride 101
Carbon Dioxide 29
BUN 35 H
Creatinine 2.1 H
Glucose 219 H
Calcium 8.7
Vital Signs:
Vital Signs
Temp Pulse Resp BP Pulse Ox
98.7 F 91 20 112/54 95
02/18/25 11:30 02/18/25 12:13 02/18/25 12:13 02/18/25 12:13 02/18/25 09:20
I&O
02/17/25 02/18/25 02/19/25
06:59 06:59 06:59
Intake Total 804 / 804 870 / 870
Output Total 275 / 275 180 / 180
Balance 529 / 529 870 / 870 -180 / -180
Review of Systems
-
History Source: Patient
All other systems: Reviewed and negative
--- NOTE | 2025-02-18 14:04 | CM ---
Addendum entered by Becky Smith 02/18/25 14:31:
correction: Tunneled right internal jugular hemodialysis catheter placement
Original Note:
chart reviewed
Remove Dobbhoff tube
Soft diet, thin liquids, aspiration precautions
PT rec SNF
HD M-W-F, temporary cath
referrals in [facility]
PLAN: SNF, when medically stable
[2025-02-18 17:38] LABS: Glucose - Point of Care 192 mg/dl (70-99)
[2025-02-18] MEDS: LIPITOR 10 MG TUBE (18:04)
[2025-02-18] MEDS: NOVOLOG FLEXPEN-LOW RESISTANCE SC (18:08)
[2025-02-18] MEDS: NOVOLOG FLEXPEN 12 UNITS SC (18:12)
[2025-02-18] MEDS: TYLENOL ORAL SOLUTION TUBE (18:12)
--- NOTE | 2025-02-18 18:20 | PTCARENOTE ---
NGT and tube feeding discontinued. Patient advanced to IDDSI 6 diet with glucerna supplement. Patient needs encouragement to eat. Bilateral wrist restraints d/c. Patient worked with PT/OT and sat out of bed to chair for 1 1/2. Assist x3 and
rolling walker back to bed. Patient INC multiple times with stool and urine. Afib on monitor. Heparin drip infusing at 2100 units/hr via right midline. in room at bedside.
[2025-02-18] MEDS: CARAFATE SUSPENSION 1 GM PO (20:28)
[2025-02-18] MEDS: TYLENOL 975 MG PO (20:28)
[2025-02-18] MEDS: LOPRESSOR 25 MG PO (20:28)
[2025-02-18] MEDS: PREVACID 30 MG PO (20:28)
[2025-02-18] MEDS: REMOVE LIDOCAINE PATCH 1 PATCH REMOVE (20:34)
[2025-02-18] MEDS: LANTUS 0.24 UNITS SC (21:24)
[2025-02-18 21:29] LABS: Glucose - Point of Care 119 mg/dl (70-99)
[2025-02-19] VITALS (26 sets, daily range): BP systolic 105–159; BP diastolic 48–95; BMI 29.2
--- NOTE | 2025-02-19 02:38 | DOWNTIME ---
There was a [employer] Client [employer] Downtime on 02/19/2025 from 0100 to 02/19/2025 at 0235. Downtime documentation of patient's care, including medication administrations, has been reconciled in the electronic record per guidelines. Refer to the
patient's paper chart under the miscellaneous tab to see printed paper medication records and downtime forms.
[2025-02-19] MEDS: HEPARIN 25000 UNITS/250 ML IV ×2 (02:41→14:43)
--- NOTE | 2025-02-19 08:14 | W.PN.NEPH.HD ---
Assessment
-
Patient seen on dialysis
Systolic blood pressure 159 and current UF
HD via tunneled catheter
Diet advancing successful
Next dialysis will be planned for Monday
Progress Note - Hemodialysis
-
Date of Service: February 19, 2025
Duration: 30 minutes and 3 hours
Calcium Bath: 2.5
Opti-Dialyzer: 160
Ultrafiltration: Other (3 kg is hemodynamically [place])
Blood Flow: 400
Dialysate Flow: 600
Heparin: Drip
EPO: 10K
[2025-02-19 08:18] LABS: Hematocrit 24.3 % (39.0-52.0); Hemoglobin 7.6 g/dL (13.0-18.0); Mean Corp Hgb Conc. 31.3 g/dL (33.0-37.0); Mean Corpuscular Volume 91.7 fL (80.0-94.0); Nucleated Red Blood Cells % 0 % (-); Platelet Count 215 10^3/uL (130-400); Red Cell Dist. Width 15.0 % (11.5-14.5)
[2025-02-19 08:39] LABS: Glucose - Point of Care 105 mg/dl (70-99)
[2025-02-19 08:42] LABS: Blood Urea Nitrogen 39 mg/dl (9-20); Calcium 8.8 mg/dl (8.4-10.2); Carbon Dioxide 32 mmol/L (22-30); Chloride 102 mmol/L (98-107); Estimated Creatinine Clearance 28 ml/min; Glucose 122 mg/dl (70-99); Potassium 3.7 mmol/L (3.5-5.1); Sodium 138 mmol/L (135-145); eGFR 29.91
--- NOTE | 2025-02-19 08:58 | W.PN.HOSP.TC ---
Today's Communication/Plan
-
Adjust insulin
Monitor hemoglobin
Await vascular surgery input
Assessment / Plan
Assessment / Plan
Gen-awake, alert, NAD
HEENT-NC, AT, anicteric, clear oral mm, Dobbhoff tube
Neck-supple
CV-reg, no M, +S1/S2
Lungs-clear B/L
Abd-soft, NT, ND
Ext- left upper extremity edema
Musculoskeletal-no cyanosis, left foot dressing intact
Skin-warm and dry
Neuro-grossly non-focal
Psych-calm, cooperative
Aspiration pneumonitis/acute hypoxic respiratory failure - triggered by vomiting, possibly triggered by ileus. Oxygenation improved, now on room air.
Acute TME - due to sepsis, shock, critical illness. Mental status appears back to baseline.
Septic shock - due to to left fifth metatarsal abscess, acute osteomyelitis. Sepsis and shock resolved.
Chronic left lower extremity weakness due to back injury during procedure 2019
-IV vancomycin per ID. Goal is 6 weeks of antibiotics.
-Shock resolved. Off vasopressors. Blood cultures negative so far. Wound culture shows MRSA.
-Leukocytosis improved overall. Afebrile.
-Unable to have MRI due to spinal stimulator not active
-Wound culture grew MRSA
-Patient underwent left partial fifth ray amputation 02/03. Podiatry following. Path report from 02/04 shows focal acute osteomyelitis, clean margin from left foot fifth ray.
PAD
-Per patient's , the PAD in his left leg is a lot more severe than his right leg
-CT angiogram done 02/01 shows multifocal atherosclerotic disease throughout the bilateral lower extremities. Diminished flow in the left anterior tibial artery with some apparent distal reconstitution, diminished flow at the distal aspect of the
left peroneal artery at the level of the ankle. Short segment high-grade stenosis of the distal right SFA.
-Vascular surgery has been having ongoing discussions with family regarding goals of care and decision for left lower extremity revascularization with potential risk for further renal deterioration.
Patient prefers to hold off on lower extremity revascularization and risk of contrast exposure on kidney function. Wants to pursue in the future if needed. I asked vascular surgery, Dr. Gonzalez, to revisit patient and discuss plan of care and to
include patient's .
Lactic acidosis due to sepsis/shock - normalized.
-Differential diagnosis include metformin induced versus worsening sepsis
-Metformin discontinued 02/01
-MAP has been consistently greater than 65
Acute kidney injury
- due to septic shock. Anuric. Gonzalez catheter was placed. Etiology of JESUS most likely due to septic shock and medications and less likely due to contrast-induced nephropathy as contrast exposure was on 02/01, creatinine was 3.3 morning of 02/01.
-Appreciate nephrology input, dialysis started 02/02. Dialysis IJ catheter was placed.
-High anion gap metabolic acidosis due to septic shock, lactic acidosis. Metabolic acidosis resolved. Off sodium bicarbonate IV.
-Hold metformin, lisinopril, hydrochlorothiazide, trend creatinine, no nephrotoxic drugs or NSAIDs
-Hemodialysis as per nephrology
-Holding angiogram until renal recovery can be determined
Weight seems unreliable
Ileus -resolved.
- developed nausea and vomiting on 02/03. Briefly treated with NG tube.
- Repeat x-ray 02/07 showed air throughout the small bowel, few loops borderline prominent, nonspecific air-fluid levels, most likely ileus. No free air.
- Held narcotics/IV Dilaudid prn (started Tylenol for pain control instead)
- Patient having bowel movements
- Repeat x-ray from 02/12/25 was okay
Odynophagia secondary to Severe Esophagitis found on EGD 02/13/25
Poor PO Intake Secondary to Above
-GI performed EGD on 02/13/25: showed severe esophagitis
Path report shows acute ulcerative esophagitis, immunohistochemical stains negative for HSV 1 and 2, CMV. No fungal organisms identified.
-Continue PPI BID and Carafate
-On discharge cont Protonix PO BID x 4 weeks then daily and carafate AC and HS with wean to BID in 2 weeks then daily x 2 weeks then stop
Acute GI bleed/acute esophagitis -GI bleed resolved. Stools have been brown.
EGD performed 02/13 shows LA grade D reflux esophagitis without bleeding. Normal stomach, normal duodenum. Dobbhoff tube clogged as per nursing. Now that patient tolerating soft diet can DC Dobbhoff tube.
-Acute GI bleed exacerbated by anticoagulation with IV heparin.
-Continue PPI twice daily and Carafate.
Acute blood loss anemia
- due to GI bleed as above. Hemoglobin slowly drifting down, 7.6 this morning. Asymptomatic. Monitor closely. Admission hemoglobin was 11.6. May have baseline chronic anemia of unclear etiology.
Suspect component of anemia related to critical illness as well as renal failure.
Mild Hematuria -- RESOLVED
- Noted on 02/12/25, later resolved while on Heparin Drip
- Monitor for now
LUE edema
LUE pain from needlesticks
- Doppler ultrasound negative for DVT.
- Ordered scheduled Tylenol 1000 mg Q8H (which is helping)
Acute on chronic heart failure with preserved ejection fraction
- Cardiology saw patient this hospitalization, continue dialysis as per nephrology
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
Troponin elevation
- Suspect acute nonischemic myocardial injury due to septic shock. Troponins trended down.
Permanent atrial fibrillation -
-Continue Heparin Drip. Was on Xarelto prior to admission -- plan to transition back to oral anticoagulation once no further procedures planned
-Outpatient Toprol XL added back on 02/12/25
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
Known moderate nonobstructive coronary disease in 2021
-Continue statin
2 consecutive episodes of VT overnight 02/10/25 to 02/11/25
-Cardiology following
-Outpatient Toprol XL added back on 02/12/25 -- changed to Lopressor on 02/13/25 given that Toprol cannot be given by tube feeds
-Monitor in IMU
Hyponatremia
- Resolved.
Hyperphosphatemia
- due to JESUS. Improving. Repeat phosphorus normal.
DM 2 with hyperglycemia -glucoses have improved overnight, 122 this morning, 119 last night.
-At home he was on insulin degludec 24 units at bedtime, NovoLog sliding scale with meals, metformin.
-Hemoglobin A1c 7.1 on 01/13/2025
-Hold metformin 1000 mg daily due to JESUS and lactic acidosis earlier this hospitalization
Continue Lantus to 24 units at bedtime, decrease aspart to 10 units AC
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
Essential hypertension
- Continue antihypertensives
Hyperlipidemia
- Was on lovastatin prior to admission -- continue this or equivalent statin for it's cardioprotective effects and hyperlipidemia history
Chronic back pain
-Patient sees a pain management provider outpatient
Obesity due to excess calories
DVT Prophylaxis: SCDs. Heparin Drip.
Code Status: Full code
Dispo -SNF when medically stable and tolerating oral diet. Updated patient's on the phone. She is requesting vascular surgery to stop by to discuss revascularization. I spoke with Dr. Gonzalez and he will stop by today to speak with patient and
family.
Anticipated Discharge: > 48 hours
Subjective/Interval History
-
Date of Service: February 19, 2025
Patient seen and examined. No complaints.
Objective Data
-
Labs:
Laboratory Results
02/19/25 02/19/25
08:02 08:03
WBC 8.0
Hgb 7.6 L
Hct 24.3 L
Plt Count 215
APTT Pending
Sodium 138
Potassium 3.7
Chloride 102
Carbon Dioxide 32 H
BUN 39 H
Creatinine 2.2 H
Glucose 122 H
Calcium 8.8
Vital Signs:
Vital Signs
Temp Pulse Resp BP Pulse Ox
98.4 F 81 11 144/57 95
02/19/25 07:17 02/19/25 06:00 02/19/25 06:00 02/19/25 06:00 02/18/25 21:59
I&O
02/18/25 02/19/25 02/20/25
06:59 06:59 06:59
Intake Total 870 / 870 1170 / 1170
Output Total 580 / 580
Balance 870 / 870 590 / 590
Review of Systems
-
History Source: Patient
All other systems: Reviewed and negative
[2025-02-19 09:02] LABS: APTT 89.7 Sec (23.4-35.0)
[2025-02-19] MEDS: NOVOLOG FLEXPEN-LOW RESISTANCE SC ×2 (09:14→12:05)
[2025-02-19] MEDS: RETACRIT 10000 UNITS IV (09:17)
[2025-02-19] MEDS: NOVOLOG FLEXPEN SC ×2 (09:17→12:21)
--- NOTE | 2025-02-19 09:17 | PHA.VAN.FU ---
Addendum entered and electronically signed by Jacinda Mccabe [facility] 02/19/25 09:28:
Agree with assessment and plan
Original Note:
Vancomycin Assessment / Plan
- Assessment
Hemodialysis Schedule: MWF
WBC's are: WNL
In the past 24 hrs, patient has been: Afebrile
- Assessment - Therapeutic Drug Monitoring
Random Level: 12.4 - drawn ~42.75H after last dose of 750mg
- Dosing Plan
Adjust Regimen to: 750mg MWF post-HD
- Monitoring Plan
No level(s) ordered at this time: consider within next few days
- Follow Up
Pharmacy will continue to follow.
Vancomycin Follow UP
- -
Patient Age: 79
Patient Sex: Male
Vancomycin Day #: 21
Indication: Skin And Soft Tissue
Requesting Provider: Dr. Archer/Dr. Maguire
Pertinent Antimicrobial Allergies:
NKDA
Height / Weight:
Height 5 ft 9 in
Actual Weight 89.5 kg
Pertinent Past Medical History: BMI ~30.5, DM 2
- Vital Signs / Lab Results
Temp Pulse Resp BP Pulse Ox
98.4 F 76 13 144/65 95
02/19/25 07:17 02/19/25 09:15 02/19/25 09:15 02/19/25 09:15 02/18/25 21:59
Lab Results - Hematology
02/19/25
08:03
WBC 8.0
Lab Results - Chemistry
02/17/25 02/18/25 02/19/25
08:35 04:57 08:02
BUN 47 H 35 H 39 H
Creatinine 2.9 H 2.1 H 2.2 H
Estimated Creat Clear 24 29 28
Therapeutic Drug Monitoring
Random Vancomycin 12.4 ug/ml 02/19/25 08:03
[2025-02-19] MEDS: DESENEX/MITRAZOL/ZEASORB 1 APPLIC TOPICAL ×2 (09:22→20:22)
[2025-02-19] MEDS: TYLENOL 975 MG PO ×3 (09:23→22:08)
[2025-02-19] MEDS: PREVACID 30 MG PO ×2 (09:23→20:20)
[2025-02-19] MEDS: LIDOCAINE 4% PATCH 1 PATCH TOPICAL (09:23)
[2025-02-19] MEDS: CARAFATE SUSPENSION 1 GM PO ×4 (09:23→20:20)
[2025-02-19] MEDS: LOPRESSOR 25 MG PO ×2 (09:29→20:20)
[2025-02-19] MEDS: VANCOCIN 150 IV (10:31)
--- NOTE | 2025-02-19 10:41 | CM ---
Patient seen at bedside on HD in IMU with daughter present. Per daughter awaiting Dr. Gonzalez update and remains interested in [facility] vs [facility] pending HD and patient ability to sit up for HD chair. CM will continue to follow for discharge planning
needs.
Plan; SNF; with HD watch for recommendations and medical treatment plan
--- NOTE | 2025-02-19 11:15 | W.PN.ID1 ---
Date of Service
Date of Service: February 19, 2025
Today's Communication
Continue Vancomycin.
Assessment / Plan
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
. spine stimulator incompatible with MRI.
# PAD, left 5th ischemic toe
. s/p CT angiogram
. Holding on vascular intervention at this time due to JESUS, per pt preference.
# JESUS -slowly improving
. HD started 02/02
. Urine eos neg
# s/p Severe esophagitis
.02/14 s/p EGD
. Biopsy: acute ulcerated esophagitis. Negative HSV, CMV, fungal stains.
# s/p septic shock
# s/p suspected pneumonia/aspiration, completed 7d cefepime
# DM2 with neuropathy
- Wound cx MRSA
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
OR cx's : MRSA
Bone path proximal margin + osteomyelitis.
- Continue Vancomycin x 6 weeks from ray amp, through 03/16/25. Dosing by level.
- Ongoing difficult shared decision making with Vascular regarding PAD intervention in setting of JESUS.
# Conditions [employer]
Diabetes mellitus type 2
Hypertension
Atrial fibrillation on Xarelto
pacemaker placement
Chronic pain with spinal stimulator, not active
Chronic left leg weakness due to history of back injury during lumbar procedure 2019
Lumbar laminectomy
Chief Complaint
-: Other (osteo of left fifth metatarsal)
Subjective / Review of Systems
No new complaints.
Daughter at bedside.
Vital Signs / Physical Exam
Vital Signs
Vital Signs
Temp Pulse Resp BP Pulse Ox
98.4 F 83 13 144/65 95
02/19/25 07:17 02/19/25 09:29 02/19/25 09:15 02/19/25 09:29 02/18/25 21:59
Physical Exam
Constitutional: No Acute Distress and Comfortable
Gastrointestinal: Soft, Non Tender and Non Distended
Extremities: Negative Edema
Neurological: AO x 3
Lines: HD Cath
Objective Data
Lab Data
Lab Results
02/19/25 08:03
02/19/25 08:02
ESR 78 mm/hour (0-20) H 01/28/25 12:23
PT 27.8 Sec (11.4-14.6) H 02/03/25 00:54
INR 2.59 02/03/25 00:54
APTT 89.7 Sec (23.4-35.0) H 02/19/25 08:03
Estimated Creat Clear 28 ml/min 02/19/25 08:02
Lactic Acid 1.7 mmol/L (0.7-2.0) 02/05/25 00:53
Total Bilirubin 0.8 mg/dl (0.2-1.3) 02/12/25 05:02
AST 21 U/L (17-59) 02/12/25 05:02
ALT 20 U/L (0-50) 02/12/25 05:02
Alkaline Phosphatase 135 U/L (38-126) H 02/12/25 05:02
C-Reactive Protein 228.10 mg/L (0.0-10.00) H 01/28/25 12:23
Most recent labs reviewed.
Micro Results:
02/03/25 21:30 Wound Culture - Final
Foot - Left Staph aureus MRSA
Gram Stain - Final
02/03/25 21:30 Anaerobic Culture - Final
Foot - Left NO ANAEROBES ISOLATED
02/03/25 21:30 Tissue Culture - Final
Foot - Left Staph aureus MRSA
Gram Stain - Final
02/02/25 13:44 Urine Culture - Final
Urine NO GROWTH
01/29/25 04:07 Blood Culture - Final
Blood/Venous No Growth - Final Report
01/28/25 12:24 Blood Culture - Final
Blood/Venous No Growth - Final Report
01/31/25 09:04 Wound Culture - Final
Foot - Left Staph aureus MRSA
Gram Stain - Final
02/01/25 19:47 Influenza Types A & B (GIFTY) - Final
Nasal Swab Negative for Influenza A & B, NAAT
Negative results must be combined with clinical observations
and patient history.
Nucleic Acid Amplification test (NAAT)performed on the
[employer] platform.
01/30/25 10:04 Wound Culture - Final
Foot - Left Staph aureus MRSA
Gram Stain - Final
01/28/25 17:44 MRSA Screen - Final
Nose No Methicillin Resistant Staphylococcus aureus isolated.
Imaging:
01/28/25 Left foot XRAY: No acute osseous abnormality. Mild soft tissue swelling along the lateral forefoot.
02/01/25 CXR: Hazy increased density over the left lower hemithorax, probably mainly due to a posteriorly layering pleural effusion.
02/03/25 CXR: Parenchymal opacity within the right lower lung and the left mid to lower lung, similar to recent radiograph. Main differential considerations of atelectasis and/or pneumonia.
02/04/25 CT LE: 1. Interval amputation of the phalanges of the left 5th toe and the 5th metatarsal head since the prior exam performed 02/01/2025.
2. Large soft tissue wound distal to the 5th metatarsal with soft tissue emphysema extending deep to the lateral cortex of the 4th metatarsal head.
3. Moderate subcutaneous edema throughout the left lower leg and thigh.
4. Moderate to severe calcific atherosclerotic plaque throughout the left lower extremity.
5. Small to moderate-sized left knee joint effusion.
6. Severe anasarca in the left lateral abdominal wall.
7. Moderate retroperitoneal and extraperitoneal edema in the pelvis.
8. Severe diffuse urinary bladder wall thickening with adjacent perivesical inflammation suggesting ACUTE CYSTITIS. Chronic urinary bladder outlet obstruction is also likely present given severe enlargement of the prostate gland.
9. Mild circumferential wall thickening and fluid distention of the rectum suggesting an acute prostatitis. Rectal tube in place.
02/07/25 CXR/AXR: Extremely low lung volumes. Some bibasilar opacification which could represent atelectasis and/or pneumonia and small bilateral pleural effusions, left possibly greater than right. Air seen throughout small bowel, few loops
borderline prominent, nonspecific air-fluid levels, most likely representing ileus. No free air.
[2025-02-19 12:14] LABS: Glucose - Point of Care 117 mg/dl (70-99)
--- NOTE | 2025-02-19 12:29 | PTOTSP ---
Speech Language Pathology
Pt seen for dysphagia tx. RN reported some increased coughing today, not immediately after swallow. Daughter present at bedside who reported same. Pt stated he noted globus sensation at level of sternal notch with foods. Was on HD this morning
and was somewhat drowsy. Intermittent slight wet vocal quality noted at rest.
Seen with P.O. trials of puree, regular solids, and thin liquids. Pt denied any globus sensation with trials. Slight wet vocal quality noted x1 following thin liquids, which cleared with a cued throat clear. Unsure if issue this morning related
to a true dysphagia vs drowsiness from HD.
Discussed option of VSE, and pt immediately stated 'no.' Discussed that WBC currently WNL and last CXR was 02/12. Given no PNA, will hold on instrumental swallowing assessment. Discussed that VSE would likely be recommendation if any further
swallowing issues noted.
Recommend:
(1) Continue IDDSI Level 6 (soft/bited-sized) solids and thin liquids
(2) Aspiration precautions: slow rate, single sips, slow rate, effortful swallow if globus sensation noted
(3) Meds as tolerated
(4) Will consider VSE if continued difficulty noted (if pt agreeable)
(5) [employer] to continue to follow
--- NOTE | 2025-02-19 13:24 | W.PN.POD ---
Today's Communication
Today's Communication
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
Assessment / Plan
-
S/P Left partial 5th ray amputation - secondary to Left foot Diabetic foot infection
Sepsis
JESUS
IDDM
neuropathy
PAD
Plan:
The left foot wound was flushed and dressed with silver alginate today. Continue vanco x 6 weeks per ID. Bone culture of the proximal margin 5th metatarsal was positive for osteomyelitis - This was discussed with him at bedside. We discussed
plans for ultimate repeat debridement of soft tissue and bone if blood flow is able to be optimized. will follow vascualr plans
Subjective
Chief Complaint
S/P Left partial 5th Ray amputation
Subjective
Patient awake at bedside
Objective
Temp Pulse Resp BP Pulse Ox
98.7 F 85 20 116/74 95
02/19/25 11:38 02/19/25 12:00 02/19/25 12:00 02/19/25 12:00 02/18/25 21:59
02/19/25 08:03
02/19/25 08:02
Vital Signs and Lab results were reviewed.
Physical Exam
Physical Exam
Left foot with bandages intact, minimal strikethrough on inner bandages. non-palpable pulses, CFT delayed, Packing in place, wound bed is clean with no purulence expressed and erythema resolved. The peripheray of the wound is dark eschar. The base
of the wound is dark with no bleeding.
--- NOTE | 2025-02-19 15:42 | PTCARENOTE ---
Patient's daughter at bedside for most of the day then switched out with pt's spouse. She was concerned about patient's bowel habits and if he needs Metamucil. She also asked for an update from , made aware. Assessment, care and VS as
charted.
[2025-02-19] MEDS: LIPITOR 10 MG PO (17:21)
[2025-02-19 17:31] LABS: Glucose - Point of Care 201 mg/dl (70-99)
[2025-02-19] MEDS: NOVOLOG FLEXPEN-LOW RESISTANCE 2 UNITS SC (18:23)
[2025-02-19] MEDS: NOVOLOG FLEXPEN 10 UNITS SC (18:23)
[2025-02-19] MEDS: REMOVE LIDOCAINE PATCH 1 PATCH REMOVE (20:22)
[2025-02-19 21:16] LABS: Glucose - Point of Care 161 mg/dl (70-99)
[2025-02-19] MEDS: LANTUS 0.24 UNITS SC (22:08)
[2025-02-20] VITALS (16 sets, daily range): BP systolic 99–164; BP diastolic 47–98; PULSE 72–76; O2SAT 97; BMI 28.5
[2025-02-20] MEDS: HEPARIN 25000 UNITS/250 ML IV ×2 (02:17→15:30)
[2025-02-20 04:37] LABS: Hematocrit 23.0 % (39.0-52.0); Hemoglobin 7.5 g/dL (13.0-18.0); Mean Corp Hgb Conc. 32.6 g/dL (33.0-37.0); Mean Corpuscular Volume 91.3 fL (80.0-94.0); Nucleated Red Blood Cells % 0 % (-); Platelet Count 226 10^3/uL (130-400); Red Cell Dist. Width 14.9 % (11.5-14.5)
[2025-02-20 04:50] LABS: APTT 115.1 Sec (23.4-35.0)
--- NOTE | 2025-02-20 05:07 | PTCARENOTE ---
no acute events overnight. Patient had one incontinent bowl movement. Complete bed change, new gown and CHG wipes done. Heparin gtt no longer therapeutic. decreased from 2100 to 1999 per protocol. assessment and vitals as documented. call cervantes in
reach.
[2025-02-20 05:39] LABS: Blood Urea Nitrogen 26 mg/dl (9-20); Calcium 8.5 mg/dl (8.4-10.2); Carbon Dioxide 30 mmol/L (22-30); Chloride 103 mmol/L (98-107); Estimated Creatinine Clearance 38 ml/min; Glucose 124 mg/dl (70-99); Potassium 3.9 mmol/L (3.5-5.1); Sodium 137 mmol/L (135-145); eGFR 43.83
[2025-02-20] MEDS: NOVOLOG FLEXPEN-LOW RESISTANCE SC ×3 (07:59→18:25)
[2025-02-20] MEDS: PREVACID 30 MG PO ×2 (07:59→19:53)
[2025-02-20] MEDS: CARAFATE SUSPENSION 1 GM PO ×4 (07:59→19:53)
[2025-02-20] MEDS: TYLENOL 975 MG PO ×3 (07:59→21:58)
[2025-02-20] MEDS: LOPRESSOR 25 MG PO ×2 (07:59→19:51)
[2025-02-20] MEDS: LIDOCAINE 4% PATCH 1 PATCH TOPICAL (08:04)
[2025-02-20] MEDS: DESENEX/MITRAZOL/ZEASORB 1 APPLIC TOPICAL ×2 (08:05→19:53)
[2025-02-20 08:09] LABS: Glucose - Point of Care 124 mg/dl (70-99)
--- NOTE | 2025-02-20 08:41 | W.PN.HOSP.TC ---
Addendum entered and electronically signed by Jed Bravo DO 02/20/25 13:13:
Spoke with wound nurse as well as infectious disease.
Patient now has nonblanching ecchymotic lesions on his extremities.
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
Vancomycin stopped and now on daptomycin per ID.
Updated daughter at the bedside.
We do not have any rheumatology service in our hospital.
Original Note:
Today's Communication/Plan
-
Continue current care
Assessment / Plan
Assessment / Plan
Gen-awake, alert, NAD
HEENT-NC, AT, anicteric, clear oral mm, Dobbhoff tube
Neck-supple
CV-reg, no M, +S1/S2
Lungs-clear B/L
Abd-soft, NT, ND
Ext- left upper extremity edema
Musculoskeletal-no cyanosis, left foot dressing intact
Skin-warm and dry
Neuro-grossly non-focal
Psych-calm, cooperative
Aspiration pneumonitis/acute hypoxic respiratory failure - triggered by vomiting, possibly triggered by ileus. Oxygenation improved, now on room air.
Acute TME - due to sepsis, shock, critical illness. Mental status much improved and now at baseline.
Septic shock - due to to left fifth metatarsal abscess, acute osteomyelitis. Sepsis and shock resolved.
Chronic left lower extremity weakness due to back injury during procedure 2019
-IV vancomycin per ID. Goal is 6 weeks of antibiotics.
-Shock resolved. Off vasopressors. Blood cultures negative so far. Wound culture shows MRSA.
-Leukocytosis improved overall. Afebrile.
-Unable to have MRI due to spinal stimulator not active
-Wound culture grew MRSA
-Patient underwent left partial fifth ray amputation 02/03. Podiatry following. Path report from 02/04 shows focal acute osteomyelitis, clean margin from left foot fifth ray.
PAD
-Per patient's , the PAD in his left leg is a lot more severe than his right leg
-CT angiogram done 02/01 shows multifocal atherosclerotic disease throughout the bilateral lower extremities. Diminished flow in the left anterior tibial artery with some apparent distal reconstitution, diminished flow at the distal aspect of the
left peroneal artery at the level of the ankle. Short segment high-grade stenosis of the distal right SFA.
-Vascular surgery has been having ongoing discussions with family regarding goals of care and decision for left lower extremity revascularization with potential risk for further renal deterioration.
Patient prefers to hold off on lower extremity revascularization and risk of contrast exposure on kidney function. Wants to pursue in the future if needed. I asked vascular surgery, Dr. Gonzalez, to revisit patient and discuss plan of care and to
include patient's .
Lactic acidosis due to sepsis/shock - normalized.
-Differential diagnosis include metformin induced versus worsening sepsis
-Metformin discontinued 02/01
-MAP has been consistently greater than 65
Acute kidney injury
- due to septic shock. Anuric. Gonzalez catheter was placed. Etiology of JESUS most likely due to septic shock and medications and less likely due to contrast-induced nephropathy as contrast exposure was on 02/01, creatinine was 3.3 morning of 02/01.
-Appreciate nephrology input, dialysis started 02/02. Dialysis IJ catheter was placed.
-High anion gap metabolic acidosis due to septic shock, lactic acidosis. Metabolic acidosis resolved. Off sodium bicarbonate IV.
-Hold metformin, lisinopril, hydrochlorothiazide, trend creatinine, no nephrotoxic drugs or NSAIDs
-Hemodialysis as per nephrology
-Holding angiogram until renal recovery can be determined
Weight seems unreliable
Ileus -resolved.
- developed nausea and vomiting on 02/03. Briefly treated with NG tube.
- Repeat x-ray 02/07 showed air throughout the small bowel, few loops borderline prominent, nonspecific air-fluid levels, most likely ileus. No free air.
- Held narcotics/IV Dilaudid prn (started Tylenol for pain control instead)
- Patient having bowel movements
- Repeat x-ray from 02/12/25 was okay
Odynophagia secondary to Severe Esophagitis found on EGD 02/13/25
Poor PO Intake Secondary to Above
-GI performed EGD on 02/13/25: showed severe esophagitis
Path report shows acute ulcerative esophagitis, immunohistochemical stains negative for HSV 1 and 2, CMV. No fungal organisms identified.
-Continue PPI BID and Carafate
-On discharge cont Protonix PO BID x 4 weeks then daily and carafate AC and HS with wean to BID in 2 weeks then daily x 2 weeks then stop
Acute GI bleed/acute esophagitis -GI bleed resolved. Stools have been brown.
EGD performed 02/13 shows LA grade D reflux esophagitis without bleeding. Normal stomach, normal duodenum. Dobbhoff tube clogged as per nursing. Now that patient tolerating soft diet can DC Dobbhoff tube.
-Acute GI bleed exacerbated by anticoagulation with IV heparin.
-Continue PPI twice daily and Carafate.
Acute blood loss anemia
- due to GI bleed as above. Hemoglobin slowly drifting down, 7.6 this morning. Asymptomatic. Monitor closely. Admission hemoglobin was 11.6. May have baseline chronic anemia of unclear etiology.
Suspect component of anemia related to critical illness as well as renal failure.
Mild Hematuria -- RESOLVED
- Noted on 02/12/25, later resolved while on Heparin Drip
- Monitor for now
LUE edema
LUE pain from needlesticks
- Doppler ultrasound negative for DVT.
- Ordered scheduled Tylenol 1000 mg Q8H (which is helping)
Acute on chronic heart failure with preserved ejection fraction
- Cardiology saw patient this hospitalization, continue dialysis as per nephrology
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
Troponin elevation
- Suspect acute nonischemic myocardial injury due to septic shock. Troponins trended down.
Permanent atrial fibrillation -
-Continue Heparin Drip. Was on Xarelto prior to admission -- plan to transition back to oral anticoagulation once no further procedures planned
-Outpatient Toprol XL added back on 02/12/25
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
Known moderate nonobstructive coronary disease in 2021
-Continue statin
2 consecutive episodes of VT overnight 02/10/25 to 02/11/25
-Cardiology following
-Outpatient Toprol XL added back on 02/12/25 -- changed to Lopressor on 02/13/25 given that Toprol cannot be given by tube feeds
-Monitor in IMU
Hyponatremia
- Resolved.
Hyperphosphatemia
- due to JESUS. Improving. Repeat phosphorus normal.
DM 2 with hyperglycemia -glucoses have improved overnight, 124 this morning, 161 last night.
-At home he was on insulin degludec 24 units at bedtime, NovoLog sliding scale with meals, metformin.
-Hemoglobin A1c 7.1 on 01/13/2025
-Hold metformin 1000 mg daily due to JESUS and lactic acidosis earlier this hospitalization
Continue Lantus to 24 units at bedtime, decrease aspart to 8 units AC
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
Essential hypertension
- Continue antihypertensives
Hyperlipidemia
- Was on lovastatin prior to admission -- continue this or equivalent statin for it's cardioprotective effects and hyperlipidemia history
Chronic back pain
-Patient sees a pain management provider outpatient
Obesity due to excess calories
DVT Prophylaxis: SCDs. Heparin Drip.
Code Status: Full code
Dispo -SNF when medically stable. Still waiting for vascular surgery to meet with patient and family.
Anticipated Discharge: > 48 hours
Subjective/Interval History
-
Date of Service: February 20, 2025
Patient seen and examined, no complaints. Seems a lot less confused. Asking good questions.
Objective Data
-
Labs:
Laboratory Results
02/20/25 02/20/25 02/20/25
04:30 04:31 11:00
WBC 6.9
Hgb 7.5 L
Hct 23.0 L
Plt Count 226
APTT 115.1 H Pending
Sodium 137
Potassium 3.9
Chloride 103
Carbon Dioxide 30
BUN 26 H
Creatinine 1.6 H
Glucose 124 H
Calcium 8.5
Vital Signs:
Vital Signs
Temp Pulse Resp BP Pulse Ox
98.3 F 75 15 164/66 93
02/20/25 08:11 02/20/25 07:59 02/20/25 06:00 02/20/25 07:59 02/19/25 22:15
I&O
02/19/25 02/20/25 02/21/25
06:59 06:59 06:59
Intake Total 1170 / 1170 240 / 240
Output Total 580 / 580 300 / 300
Balance 590 / 590 -60 / -60
Review of Systems
-
History Source: Patient
All other systems: Reviewed and negative
--- NOTE | 2025-02-20 08:43 | PHA.VAN.FU ---
Addendum entered and electronically signed by Jacinda Mccabe [facility] 02/20/25 09:20:
Agree with assessment and plan
Original Note:
Vancomycin Assessment / Plan
- Assessment
Hemodialysis Schedule: MWF
WBC's are: WNL
In the past 24 hrs, patient has been: Afebrile
- Dosing Plan
Continue: 750mg HD MWF
- Monitoring Plan
Random Level: 02/21 0600
- Follow Up
Pharmacy will continue to follow.
Vancomycin Follow UP
- -
Patient Age: 79
Patient Sex: Male
Vancomycin Day #: 22
Indication: Skin And Soft Tissue
Requesting Provider: Dr. Archer/Dr. Maguire
Pertinent Antimicrobial Allergies:
NKDA
Height / Weight:
Height 5 ft 9 in
Actual Weight 87.5 kg
Pertinent Past Medical History: BMI ~30.5, DM 2
- Vital Signs / Lab Results
Temp Pulse Resp BP Pulse Ox
98.3 F 75 15 164/66 93
02/20/25 08:11 02/20/25 07:59 02/20/25 06:00 02/20/25 07:59 02/19/25 22:15
Lab Results - Hematology
02/19/25 02/20/25
08:03 04:31
WBC 8.0 6.9
Lab Results - Chemistry
02/17/25 02/18/25 02/19/25
08:35 04:57 08:02
BUN 47 H 35 H 39 H
Creatinine 2.9 H 2.1 H 2.2 H
Estimated Creat Clear 24 29 28
02/20/25
04:31
BUN 26 H
Creatinine 1.6 H
Estimated Creat Clear 38
Therapeutic Drug Monitoring
Random Vancomycin 12.4 ug/ml 02/19/25 08:03
--- NOTE | 2025-02-20 08:55 | W.PN.ID1 ---
Addendum entered and electronically signed by Angella Maguire MD 02/20/25 12:52:
Notified by Wound RN Eliana, pt with new purplish lesions on BUE and R ankle and heel. Some are palpable.
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
DC Vanco and monitor for improvement of lesions.
Replace abx IV daptomycin. Follow CK.
d/w Dr. Bravo
Original Note:
Date of Service
Date of Service: February 20, 2025
Today's Communication
Continue Vancomycin.
Assessment / Plan
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
. spine stimulator incompatible with MRI.
# PAD, left 5th ischemic toe
. s/p CT angiogram
. Holding on vascular intervention at this time due to JESUS, per pt preference.
# JESUS
. HD started 02/02
. slowly improving; cautiously optimistic for recovery
# s/p Severe esophagitis
.02/14 s/p EGD
. Biopsy: acute ulcerated esophagitis. Negative HSV, CMV, fungal stains.
# s/p septic shock
# s/p suspected pneumonia/aspiration, completed 7d cefepime
# DM2 with neuropathy
- Wound cx MRSA
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
OR cx's : MRSA
Bone path proximal margin + osteomyelitis.
- Continue Vancomycin x 6 weeks from ray amp, through 03/16/25. Dosing by level.
- Ongoing difficult shared decision making with Vascular, Dispensing Optician regarding PAD intervention in setting of JESUS.
Discussed poor wound healing potential, suboptimal antibiotic level at site of osteo, and ischemia may progress if no vascular intervention.
Understandably, pt prefers to hold off on vascular intervention at this time since there is a chance of renal recovery.
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
Diabetes mellitus type 2
Hypertension
Atrial fibrillation on Xarelto
pacemaker placement
Chronic pain with spinal stimulator, not active
Chronic left leg weakness due to history of back injury during lumbar procedure 2019
Lumbar laminectomy
Chief Complaint
-: Other (osteo of left fifth metatarsal)
Subjective / Review of Systems
Feels same.
Vital Signs / Physical Exam
Vital Signs
Vital Signs
Temp Pulse Resp BP Pulse Ox
98.3 F 75 15 164/66 93
02/20/25 08:11 02/20/25 07:59 02/20/25 06:00 02/20/25 07:59 02/19/25 22:15
Physical Exam
Constitutional: No Acute Distress
Eyes: No Conjunctival Hemorrhage and Sclera Anicteric
Cardiovascular: Regular Rate and S1/S2
Extremities: Edema
Wound: Other (left foot dressing dry)
Neurological: AO x 3
Lines: HD Cath
Objective Data
Lab Data
Lab Results
02/20/25 04:31
02/20/25 04:31
ESR 78 mm/hour (0-20) H 01/28/25 12:23
PT 27.8 Sec (11.4-14.6) H 02/03/25 00:54
INR 2.59 02/03/25 00:54
APTT 115.1 Sec (23.4-35.0) H 02/20/25 04:30
Estimated Creat Clear 38 ml/min 02/20/25 04:31
Lactic Acid 1.7 mmol/L (0.7-2.0) 02/05/25 00:53
Total Bilirubin 0.8 mg/dl (0.2-1.3) 02/12/25 05:02
AST 21 U/L (17-59) 02/12/25 05:02
ALT 20 U/L (0-50) 02/12/25 05:02
Alkaline Phosphatase 135 U/L (38-126) H 02/12/25 05:02
C-Reactive Protein 228.10 mg/L (0.0-10.00) H 01/28/25 12:23
Most recent labs reviewed.
Micro Results:
02/03/25 21:30 Wound Culture - Final
Foot - Left Staph aureus MRSA
Gram Stain - Final
02/03/25 21:30 Anaerobic Culture - Final
Foot - Left NO ANAEROBES ISOLATED
02/03/25 21:30 Tissue Culture - Final
Foot - Left Staph aureus MRSA
Gram Stain - Final
02/02/25 13:44 Urine Culture - Final
Urine NO GROWTH
01/29/25 04:07 Blood Culture - Final
Blood/Venous No Growth - Final Report
01/28/25 12:24 Blood Culture - Final
Blood/Venous No Growth - Final Report
01/31/25 09:04 Wound Culture - Final
Foot - Left Staph aureus MRSA
Gram Stain - Final
02/01/25 19:47 Influenza Types A & B (GIFTY) - Final
Nasal Swab Negative for Influenza A & B, NAAT
Negative results must be combined with clinical observations
and patient history.
Nucleic Acid Amplification test (NAAT)performed on the
[employer] platform.
01/30/25 10:04 Wound Culture - Final
Foot - Left Staph aureus MRSA
Gram Stain - Final
01/28/25 17:44 MRSA Screen - Final
Nose No Methicillin Resistant Staphylococcus aureus isolated.
Imaging:
01/28/25 Left foot XRAY: No acute osseous abnormality. Mild soft tissue swelling along the lateral forefoot.
02/01/25 CXR: Hazy increased density over the left lower hemithorax, probably mainly due to a posteriorly layering pleural effusion.
02/03/25 CXR: Parenchymal opacity within the right lower lung and the left mid to lower lung, similar to recent radiograph. Main differential considerations of atelectasis and/or pneumonia.
02/04/25 CT LE: 1. Interval amputation of the phalanges of the left 5th toe and the 5th metatarsal head since the prior exam performed 02/01/2025.
2. Large soft tissue wound distal to the 5th metatarsal with soft tissue emphysema extending deep to the lateral cortex of the 4th metatarsal head.
3. Moderate subcutaneous edema throughout the left lower leg and thigh.
4. Moderate to severe calcific atherosclerotic plaque throughout the left lower extremity.
5. Small to moderate-sized left knee joint effusion.
6. Severe anasarca in the left lateral abdominal wall.
7. Moderate retroperitoneal and extraperitoneal edema in the pelvis.
8. Severe diffuse urinary bladder wall thickening with adjacent perivesical inflammation suggesting ACUTE CYSTITIS. Chronic urinary bladder outlet obstruction is also likely present given severe enlargement of the prostate gland.
9. Mild circumferential wall thickening and fluid distention of the rectum suggesting an acute prostatitis. Rectal tube in place.
02/07/25 CXR/AXR: Extremely low lung volumes. Some bibasilar opacification which could represent atelectasis and/or pneumonia and small bilateral pleural effusions, left possibly greater than right. Air seen throughout small bowel, few loops
borderline prominent, nonspecific air-fluid levels, most likely representing ileus. No free air.
Care Review
Plan reviewed with: Physician (Dr. Bravo)
[2025-02-20] MEDS: NOVOLOG FLEXPEN SC ×2 (08:56→18:24)
--- NOTE | 2025-02-20 09:20 | W.PN.NEPH.PH ---
Today's Communication / Plan
-
Dialysis tomorrow
Assessment/Plan
-
IMP:
TME
Septic shock
Lactic acidosis
Sepsis 2/2 to Diabetic left foot cellulitis w/ lymphangitis
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
Acute kidney injury-baseline cr 0.9-1.1
Peripheral artery disease
hyponatremia
IDDM 2
Essential hypertension
Constipation
A-fib�permanent
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
HLD
Obesity due to excess calories
Plan:
JESUS--
Creatinine levels lower range between dialysis treatments: Now down to 1.6 following dialysis on 02/19/2025
We will still plan on performing dialysis tomorrow but will continue to follow creatinine levels between treatment
He will be left off dialysis over the weekend to assess for more comprehensive recovery
Urine output appears to be increasing
s/p tunneled catheter on 02/11
cont abx per ID
Order dialysis for tomorrow
Patient is incontinent so we will need accurate weights
Discussed plan in detail with patient and daughter
-
-
Date of Service: February 20, 2025
CC / HPI / ROS
-
Chief Complaint:
JESUS
History of Present Illness:
Urine output improved
JESUS/HD tolerated HD yesterday
BP stable
Remains in
Review of Systems:
Urine output increasing subjectively per patient
no cp or sob noted
no fever
Weights down following dialysis with larger UF
Labs
-
Labs:
WBC 6.9 10^3/uL (4.8-10.8) 02/20/25 04:31
RBC 2.52 10^6/uL (4.70-6.10) L 02/20/25 04:31
Hgb 7.5 g/dL (13.0-18.0) L 02/20/25 04:31
Hct 23.0 % (39.0-52.0) L 02/20/25 04:31
Plt Count 226 10^3/uL (130-400) 02/20/25 04:31
Sodium 137 mmol/L (135-145) 02/20/25 04:31
Potassium 3.9 mmol/L (3.5-5.1) 02/20/25 04:31
Chloride 103 mmol/L (98-107) 02/20/25 04:31
Carbon Dioxide 30 mmol/L (22-30) 02/20/25 04:31
BUN 26 mg/dl (9-20) H 02/20/25 04:31
Creatinine 1.6 mg/dL (0.7-1.3) H 02/20/25 04:31
eGFR 43.83 02/20/25 04:31
Glucose 124 mg/dl (70-99) H 02/20/25 04:31
Calcium 8.5 mg/dl (8.4-10.2) 02/20/25 04:31
Phosphorus 2.7 mg/dl (2.5-4.5) 02/16/25 05:33
Tpe-Z-Oumacruxbny Pept > 07611 pg/ml 02/01/25 20:16
Albumin 2.7 g/dl (3.5-5.0) L 02/12/25 05:02
Physical Exam
-
Vital Signs:
Vital Signs
Temp Pulse Resp BP Pulse Ox
98.3 F 68 14 164/66 93
02/20/25 08:11 02/20/25 08:01 02/20/25 08:01 02/20/25 08:01 02/19/25 22:15
Cardiovascular:: Regular rate and rhythm
Respiratory:: Bilateral: CTA
Lung Excursion:: Normal
Abdomen:: Nontender and Soft
Bowel Sounds:: Normal
Extremity Edema:: +1: Bilateral: (trace)
Gonzalez Catheter: No
[2025-02-20] MEDS: NOVOLOG FLEXPEN 8 UNITS SC ×2 (09:46→13:14)
--- NOTE | 2025-02-20 10:29 | WOUNDNOTE ---
R ANKLE (LATERAL POSTERIOR)
--- NOTE | 2025-02-20 10:30 | WOUNDNOTE ---
R ANKLE/HEEL (POSTERIOR)
--- NOTE | 2025-02-20 10:31 | WOUNDNOTE ---
R ANKLE/HEEL (POSTERIOR)
--- NOTE | 2025-02-20 10:31 | WOUNDNOTE ---
R ELBOW/FOREARM (PROXIMAL)
--- NOTE | 2025-02-20 10:33 | WOUNDNOTE ---
[facility] RN note: Patient's L foot dressing D+I (changed by podiatry yesterday). Skin on heels intact. Sacral/coccyx crease with some peeling skin, not open. Sacral/coccyx skin fragile appearing and at risk for skin breakdown. Patient does not like to be
probed too far on his side d/t back issues. Sacral shaped silicone border foam changed. No sting barrier wipe applied to R heel. Patient has a red/purple ecchymotic areas on R ankle (medial, posterior), R upper posterior heel, L hand and upper arm.
Not sure of cause. His extremity edema is down. Patient's appetite fair. Patient on a [facility] Max air bed and has several air chair cushions. Patient turned to R semi side lying position with help from ALLEN Zimmerman. Patient's heels off bed using
pillow with air chair cushion on top under each calf/ankle. Will follow as needed.
--- NOTE | 2025-02-20 11:00 | WOUNDNOTE ---
[facility] RN note: Patient seen around 1000. Patient's L foot dressing D+I (changed by podiatry yesterday). Skin on heels intact. Sacral/coccyx crease with some peeling skin, not open. Sacral/coccyx skin fragile appearing and at risk for skin breakdown.
Patient does not like to be propped too far on his side d/t back issues. Sacral shaped silicone border foam changed. No sting barrier wipe applied to R heel. Patient has a red/purple ecchymotic areas on R ankle (medial, posterior), R upper posterior
heel, L hand and upper arm. Not sure of cause. His extremity edema is down. Patient's appetite fair. Patient on a [employer] Max air bed and has several air chair cushions. Patient turned to R semi side lying position with help from ALLEN Zimmerman.
Patient's heels off bed using pillow with air chair cushion on top under each calf/ankle. Will follow as needed. [place] texted Dr. Bravo and Dr. Maguire re: patient has scattered red/purple ecchymotic areas on arms, R ankle, R upper posterior heel.
Not sure what the cause is. Did not notice it on his R ankle/upper heel last week. Pictures in chart.
--- NOTE | 2025-02-20 11:39 | PTCARENOTE ---
Patient up to chair approx 1130 with PT/OT. Pt brushed teeth. Pt able to order own meals with needed materials provided. Pt appetite better. Pt able to use urinal himself this morning. Daughter at bedside and updated. Pt appears more conversant and
smiles at family. Heparin gtt maintained. Assessment, care and VS as charted.
[2025-02-20 12:35] LABS: Glucose - Point of Care 92 mg/dl (70-99)
[2025-02-20 12:57] LABS: Fibrinogen 659 MG/DL (199-459); INR 1.11; PT 14.8 Sec (11.4-14.6)
[2025-02-20 12:58] LABS: APTT 97.2 Sec (23.4-35.0)
[2025-02-20 12:59] LABS: D-Dimer 1.91 ug/mlFEU (0.00-0.50)
--- NOTE | 2025-02-20 14:45 | CM ---
Patient seen at bedside in IMU. 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 Patient daughter reports that patient has been sitting up out of be and is working on lengthening the time out of bed.
Patient confirmed that he is trying. CM will continue to follow for discharge planning needs.
Plan;SNF pending patient
[2025-02-20 18:34] LABS: Glucose - Point of Care 89 mg/dl (70-99)
[2025-02-20 18:55] LABS: APTT 67.6 Sec (23.4-35.0)
[2025-02-20] MEDS: REMOVE LIDOCAINE PATCH 1 PATCH REMOVE (19:53)
[2025-02-20 21:51] LABS: Glucose - Point of Care 167 mg/dl (70-99)
[2025-02-20] MEDS: LANTUS 0.24 UNITS SC (21:59)
[2025-02-21] VITALS (27 sets, daily range): BP systolic 108–167; BP diastolic 48–99; BMI 28.7
[2025-02-21 02:08] LABS: APTT > 200 Sec (23.4-35.0)
[2025-02-21 03:27] LABS: APTT 83.1 Sec (23.4-35.0)
[2025-02-21] MEDS: HEPARIN 25000 UNITS/250 ML IV ×2 (04:44→16:31)
--- NOTE | 2025-02-21 06:29 | PTCARENOTE ---
Heparin gtt maintained. PTT resulted >200. PTT redrawn for questionable result and repeat result is therapeutic. Pt attempted to use urinal without success, incontinence care performed. CHG cloth bath given with gown and linen change. Pt denies
complaints at this time. Call cervantes within reach. Care ongoing.
[2025-02-21 08:37] LABS: Hematocrit 24.0 % (39.0-52.0); Hemoglobin 7.5 g/dL (13.0-18.0)
[2025-02-21 08:41] LABS: Glucose - Point of Care 143 mg/dl (70-99)
--- NOTE | 2025-02-21 08:42 | W.PN.HOSP.TC ---
Today's Communication/Plan
-
Continue current care
Assessment / Plan
Assessment / Plan
Gen-awake, alert, NAD
HEENT-NC, AT, anicteric, clear oral mm, Dobbhoff tube
Neck-supple
CV-reg, no M, +S1/S2
Lungs-clear B/L
Abd-soft, NT, ND
Ext- left upper extremity edema
Musculoskeletal-no cyanosis, left foot dressing intact
Skin-warm and dry
Neuro-grossly non-focal
Psych-calm, cooperative
Aspiration pneumonitis/acute hypoxic respiratory failure - triggered by vomiting, possibly triggered by ileus. Oxygenation improved, now on room air.
Acute TME - due to sepsis, shock, critical illness. Mental status much improved and now at baseline.
Septic shock - due to to left fifth metatarsal abscess, acute osteomyelitis. Sepsis and shock resolved.
Chronic left lower extremity weakness due to back injury during procedure 2019
-IV daptomycin per ID. Goal is 6 weeks of antibiotics.
-Shock resolved. Off vasopressors. Blood cultures negative so far. Wound culture shows MRSA.
-Leukocytosis improved overall. Afebrile.
-Unable to have MRI due to spinal stimulator not active
-Wound culture grew MRSA
-Patient underwent left partial fifth ray amputation 02/03. Podiatry following. Path report from 02/04 shows focal acute osteomyelitis, clean margin from left foot fifth ray.
Nonblanching skin lesions -possibly vasculitis, possibly due to vancomycin. Now off vancomycin and on daptomycin per ID.
PAD
-Per patient's , the PAD in his left leg is a lot more severe than his right leg
-CT angiogram done 02/01 shows multifocal atherosclerotic disease throughout the bilateral lower extremities. Diminished flow in the left anterior tibial artery with some apparent distal reconstitution, diminished flow at the distal aspect of the
left peroneal artery at the level of the ankle. Short segment high-grade stenosis of the distal right SFA.
-Vascular surgery has been having ongoing discussions with family regarding goals of care and decision for left lower extremity revascularization with potential risk for further renal deterioration.
Patient prefers to hold off on lower extremity revascularization and risk of contrast exposure on kidney function. Wants to pursue in the future if needed. I asked vascular surgery, Dr. Gonzalez, to revisit patient and discuss plan of care and to
include patient's .
Lactic acidosis due to sepsis/shock - normalized.
-Differential diagnosis include metformin induced versus worsening sepsis
-Metformin discontinued 02/01
-MAP has been consistently greater than 65
Acute kidney injury
- due to septic shock. Anuric. Gonzalez catheter was placed. Etiology of JESUS most likely due to septic shock and medications and less likely due to contrast-induced nephropathy as contrast exposure was on 02/01, creatinine was 3.3 morning of 02/01.
-Appreciate nephrology input, dialysis started 02/02. Dialysis IJ catheter was placed.
-High anion gap metabolic acidosis due to septic shock, lactic acidosis. Metabolic acidosis resolved. Off sodium bicarbonate IV.
-Hold metformin, lisinopril, hydrochlorothiazide, trend creatinine, no nephrotoxic drugs or NSAIDs
-Hemodialysis as per nephrology
-Holding angiogram until renal recovery can be determined
Weight seems unreliable
Ileus -resolved.
- developed nausea and vomiting on 02/03. Briefly treated with NG tube.
- Repeat x-ray 02/07 showed air throughout the small bowel, few loops borderline prominent, nonspecific air-fluid levels, most likely ileus. No free air.
- Held narcotics/IV Dilaudid prn (started Tylenol for pain control instead)
- Patient having bowel movements
- Repeat x-ray from 02/12/25 was okay
Odynophagia secondary to Severe Esophagitis found on EGD 02/13/25
Poor PO Intake Secondary to Above
-GI performed EGD on 02/13/25: showed severe esophagitis
Path report shows acute ulcerative esophagitis, immunohistochemical stains negative for HSV 1 and 2, CMV. No fungal organisms identified.
-Continue PPI BID and Carafate
-On discharge cont Protonix PO BID x 4 weeks then daily and carafate AC and HS with wean to BID in 2 weeks then daily x 2 weeks then stop
Acute GI bleed/acute esophagitis -GI bleed resolved. Stools have been brown.
EGD performed 02/13 shows LA grade D reflux esophagitis without bleeding. Normal stomach, normal duodenum. Dobbhoff tube clogged as per nursing. Now that patient tolerating soft diet can DC Dobbhoff tube.
-Acute GI bleed exacerbated by anticoagulation with IV heparin.
-Continue PPI twice daily and Carafate.
Acute blood loss anemia
- due to GI bleed as above. Hemoglobin slowly drifting down, 7.6 this morning. Asymptomatic. Monitor closely. Admission hemoglobin was 11.6. May have baseline chronic anemia of unclear etiology.
Suspect component of anemia related to critical illness as well as renal failure.
Mild Hematuria -- RESOLVED
- Noted on 02/12/25, later resolved while on Heparin Drip
- Monitor for now
LUE edema
LUE pain from needlesticks
- Doppler ultrasound negative for DVT.
- Ordered scheduled Tylenol 1000 mg Q8H (which is helping)
Acute on chronic heart failure with preserved ejection fraction
- Cardiology saw patient this hospitalization, continue dialysis as per nephrology
- Dr. Munoz is his butt presser
Troponin elevation
- Suspect acute nonischemic myocardial injury due to septic shock. Troponins trended down.
Permanent atrial fibrillation -
-Continue Heparin Drip. Was on Xarelto prior to admission -- plan to transition back to oral anticoagulation once no further procedures planned
-Outpatient Toprol XL added back on 02/12/25
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
Known moderate nonobstructive coronary disease in 2021
-Continue statin
2 consecutive episodes of VT overnight 02/10/25 to 02/11/25
-Cardiology following
-Outpatient Toprol XL added back on 02/12/25 -- changed to Lopressor on 02/13/25 given that Toprol cannot be given by tube feeds
-Monitor in IMU
Hyponatremia
- Resolved.
Hyperphosphatemia
- due to JESUS. Improving. Repeat phosphorus normal.
DM 2 with hyperglycemia -glucoses have improved overnight, 124 this morning, 161 last night.
-At home he was on insulin degludec 24 units at bedtime, NovoLog sliding scale with meals, metformin.
-Hemoglobin A1c 7.1 on 01/13/2025
-Hold metformin 1000 mg daily due to JESUS and lactic acidosis earlier this hospitalization
Continue Lantus to 24 units at bedtime, decrease aspart to 8 units AC
-Dr. Pathak is his icd 9 coder
Essential hypertension
- Continue antihypertensives
Hyperlipidemia
- Was on lovastatin prior to admission -- continue this or equivalent statin for it's cardioprotective effects and hyperlipidemia history
Chronic back pain
-Patient sees a pain management provider outpatient
Obesity due to excess calories
DVT Prophylaxis: SCDs. Heparin Drip.
Code Status: Full code
Dispo -SNF when medically stable. Still waiting for vascular surgery to meet with patient and family.
Anticipated Discharge: > 48 hours
Subjective/Interval History
-
Date of Service: February 21, 2025
Patient seen and examined. Getting hemodialysis. No complaints.
Objective Data
-
Labs:
Laboratory Results
02/21/25 02/21/25 02/21/25
01:33 03:07 08:07
Hgb 7.5 L
Hct 24.0 L
APTT > 200 H* 83.1 H
Sodium Pending
Potassium Pending
Chloride Pending
Carbon Dioxide Pending
BUN Pending
Creatinine Pending
Glucose Pending
Calcium Pending
02/21/25
09:30
Hgb
Hct
APTT Pending
Sodium
Potassium
Chloride
Carbon Dioxide
BUN
Creatinine
Glucose
Calcium
Vital Signs:
Vital Signs
Temp Pulse Resp BP Pulse Ox
97.5 F 79 16 154/82 94
02/21/25 02:39 02/21/25 06:00 02/21/25 06:00 02/21/25 06:00 02/20/25 20:38
I&O
02/20/25 02/21/25 02/22/25
06:59 06:59 06:59
Intake Total 240 / 240 240 / 240
Output Total 300 / 300 300 / 300
Balance -60 / -60 -60 / -60
Review of Systems
-
History Source: Patient
All other systems: Reviewed and negative
[2025-02-21 08:53] LABS: Blood Urea Nitrogen 31 mg/dl (9-20); Calcium 9.0 mg/dl (8.4-10.2); Carbon Dioxide 29 mmol/L (22-30); Chloride 103 mmol/L (98-107); Estimated Creatinine Clearance 30 ml/min; Glucose 148 mg/dl (70-99); Potassium 3.7 mmol/L (3.5-5.1); Sodium 138 mmol/L (135-145); eGFR 33.53
--- NOTE | 2025-02-21 09:17 | W.PN.ID1 ---
Date of Service
Date of Service: February 21, 2025
Today's Communication
Continue daptomycin.
Assessment / Plan
# Vasculitic lesions
. Non-palpable purpura -> less likely leukocytoclastic vasculitis
. However, will dc Vancomycin and monitor for improvement
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
. spine stimulator incompatible with MRI.
# PAD, left 5th ischemic toe
. s/p CT angiogram
. Holding on vascular intervention at this time due to JESUS, per pt preference.
# JESUS
. HD started 02/02
. slowly improving; cautiously optimistic for recovery
# s/p Severe esophagitis
.02/14 s/p EGD
. Biopsy: acute ulcerated esophagitis. Negative HSV, CMV, fungal stains.
# s/p septic shock
# s/p suspected pneumonia/aspiration, completed 7d cefepime
# DM2 with neuropathy
- Wound cx MRSA
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
OR cx's : MRSA
Bone path proximal margin + osteomyelitis.
- 02/20 Vancomycin dc'd due to skin lesions
- Continue Daptomycin IV 800mg/800mg/1000mg with HD through 03/16/25 ( 6 weeks abx) from ray amp.
Follow CK <20. Hold atorvastatin while on Daptomycin
- Ongoing difficult shared decision making with Vascular, Disintegrator Operator regarding PAD intervention in setting of JESUS.
Discussed poor wound healing potential, suboptimal antibiotic level at site of osteo, and ischemia may progress if no vascular intervention.
Understandably, pt prefers to hold off on vascular intervention at this time since there is a chance of renal recovery.
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
Diabetes mellitus type 2
Hypertension
Atrial fibrillation on Xarelto
pacemaker placement
Chronic pain with spinal stimulator, not active
Chronic left leg weakness due to history of back injury during lumbar procedure 2019
Lumbar laminectomy
Chief Complaint
-: Other (osteo of left fifth metatarsal)
Subjective / Review of Systems
Skin lesions non-pruritic.
Vital Signs / Physical Exam
Vital Signs
Vital Signs
Temp Pulse Resp BP Pulse Ox
97.6 F 79 16 154/82 94
02/21/25 07:56 02/21/25 06:00 02/21/25 06:00 02/21/25 06:00 02/20/25 20:38
Physical Exam
Constitutional: No Acute Distress
Cardiovascular: Irregular Rate and S1/S2
Pulmonary: Clear (anteriorly) and Non Labored
Gastrointestinal: Soft and Non Tender
Extremities: Negative Edema
Skin: Rash (red-purplish round patches on left dorsum hand, B/L arms, right elbow, R ankle/heel )
Wound: Other (left foot dressing dry)
Neurological: AO x 3
Objective Data
Lab Data
Lab Results
02/21/25 08:07
02/21/25 08:07
ESR 78 mm/hour (0-20) H 01/28/25 12:23
PT 14.8 Sec (11.4-14.6) H 02/20/25 12:25
INR 1.11 02/20/25 12:25
APTT 83.1 Sec (23.4-35.0) H 02/21/25 03:07
Estimated Creat Clear 30 ml/min 02/21/25 08:07
Lactic Acid 1.7 mmol/L (0.7-2.0) 02/05/25 00:53
Total Bilirubin 0.8 mg/dl (0.2-1.3) 02/12/25 05:02
AST 21 U/L (17-59) 02/12/25 05:02
ALT 20 U/L (0-50) 02/12/25 05:02
Alkaline Phosphatase 135 U/L (38-126) H 02/12/25 05:02
C-Reactive Protein 228.10 mg/L (0.0-10.00) H 01/28/25 12:23
Most recent labs reviewed.
Micro Results:
02/03/25 21:30 Wound Culture - Final
Foot - Left Staph aureus MRSA
Gram Stain - Final
02/03/25 21:30 Anaerobic Culture - Final
Foot - Left NO ANAEROBES ISOLATED
02/03/25 21:30 Tissue Culture - Final
Foot - Left Staph aureus MRSA
Gram Stain - Final
02/02/25 13:44 Urine Culture - Final
Urine NO GROWTH
01/29/25 04:07 Blood Culture - Final
Blood/Venous No Growth - Final Report
01/28/25 12:24 Blood Culture - Final
Blood/Venous No Growth - Final Report
01/31/25 09:04 Wound Culture - Final
Foot - Left Staph aureus MRSA
Gram Stain - Final
02/01/25 19:47 Influenza Types A & B (GIFTY) - Final
Nasal Swab Negative for Influenza A & B, NAAT
Negative results must be combined with clinical observations
and patient history.
Nucleic Acid Amplification test (NAAT)performed on the
[employer] platform.
01/30/25 10:04 Wound Culture - Final
Foot - Left Staph aureus MRSA
Gram Stain - Final
01/28/25 17:44 MRSA Screen - Final
Nose No Methicillin Resistant Staphylococcus aureus isolated.
Imaging:
01/28/25 Left foot XRAY: No acute osseous abnormality. Mild soft tissue swelling along the lateral forefoot.
02/01/25 CXR: Hazy increased density over the left lower hemithorax, probably mainly due to a posteriorly layering pleural effusion.
02/03/25 CXR: Parenchymal opacity within the right lower lung and the left mid to lower lung, similar to recent radiograph. Main differential considerations of atelectasis and/or pneumonia.
02/04/25 CT LE: 1. Interval amputation of the phalanges of the left 5th toe and the 5th metatarsal head since the prior exam performed 02/01/2025.
2. Large soft tissue wound distal to the 5th metatarsal with soft tissue emphysema extending deep to the lateral cortex of the 4th metatarsal head.
3. Moderate subcutaneous edema throughout the left lower leg and thigh.
4. Moderate to severe calcific atherosclerotic plaque throughout the left lower extremity.
5. Small to moderate-sized left knee joint effusion.
6. Severe anasarca in the left lateral abdominal wall.
7. Moderate retroperitoneal and extraperitoneal edema in the pelvis.
8. Severe diffuse urinary bladder wall thickening with adjacent perivesical inflammation suggesting ACUTE CYSTITIS. Chronic urinary bladder outlet obstruction is also likely present given severe enlargement of the prostate gland.
9. Mild circumferential wall thickening and fluid distention of the rectum suggesting an acute prostatitis. Rectal tube in place.
02/07/25 CXR/AXR: Extremely low lung volumes. Some bibasilar opacification which could represent atelectasis and/or pneumonia and small bilateral pleural effusions, left possibly greater than right. Air seen throughout small bowel, few loops
borderline prominent, nonspecific air-fluid levels, most likely representing ileus. No free air.
Care Review
Plan reviewed with: Physician (Dr. Bravo)
[2025-02-21] MEDS: RETACRIT 2000 UNITS IV (09:24)
[2025-02-21] MEDS: RETACRIT 10000 UNITS IV (09:25)
[2025-02-21 09:54] LABS: APTT 111.8 Sec (23.4-35.0)
[2025-02-21] MEDS: NOVOLOG FLEXPEN SC ×2 (10:21→16:55)
[2025-02-21] MEDS: NOVOLOG FLEXPEN-LOW RESISTANCE SC ×3 (10:22→16:56)
[2025-02-21] MEDS: LOPRESSOR PO (10:22)
--- NOTE | 2025-02-21 10:46 | W.PN.NEPH.HD ---
Assessment
-
Tolerating dialysis 1 L UF
Progress Note - Hemodialysis
-
Date of Service: February 21, 2025
Duration: 30 minutes and 3 hours
Calcium Bath: 2.5
Opti-Dialyzer: 160
Ultrafiltration: Other (3 kg is hemodynamically Toller)
Blood Flow: 400
Dialysate Flow: 600
Heparin: Drip
EPO: 10K
[2025-02-21] MEDS: HEPARIN 4300 UNITS INTRACATH (11:38)
[2025-02-21] MEDS: CARAFATE SUSPENSION PO (11:47)
[2025-02-21] MEDS: TYLENOL PO (11:48)
[2025-02-21] MEDS: LIDOCAINE 4% PATCH 1 PATCH TOPICAL (11:58)
[2025-02-21] MEDS: DESENEX/MITRAZOL/ZEASORB 1 APPLIC TOPICAL ×2 (11:58→20:59)
[2025-02-21] MEDS: CARAFATE SUSPENSION 1 GM PO ×3 (12:00→21:00)
[2025-02-21] MEDS: PREVACID 30 MG PO ×2 (12:00→21:00)
--- NOTE | 2025-02-21 12:00 | CM ---
Patient seen at bedside in IMU. Patient seen by PT yesterday and now recommending Acute Rehab. CM will review with patient and family; await medical treatment plan/recommendations. CM will continue to follow for discharge planning needs.
Plan; SNF vs Acute Rehab; pending physician recommendations and family choice.
[2025-02-21] MEDS: NOVOLOG FLEXPEN 8 UNITS SC (12:01)
[2025-02-21 12:13] LABS: Glucose - Point of Care 96 mg/dl (70-99)
[2025-02-21] MEDS: TYLENOL 975 MG PO ×2 (16:01→21:00)
[2025-02-21] MEDS: CUBICIN 20 MG IV (16:32)
[2025-02-21 16:53] LABS: Glucose - Point of Care 78 mg/dl (70-99)
[2025-02-21 17:49] LABS: APTT 80.5 Sec (23.4-35.0)
[2025-02-21] MEDS: LOPRESSOR 25 MG PO (21:00)
[2025-02-21] MEDS: REMOVE LIDOCAINE PATCH 1 PATCH REMOVE (21:01)
[2025-02-21 21:38] LABS: Glucose - Point of Care 185 mg/dl (70-99)
[2025-02-21] MEDS: LANTUS 0.24 UNITS SC (21:48)
--- NOTE | 2025-02-21 22:36 | PTCARENOTE ---
Pt received from previous shift in bed w/spouse at bedside. AAOx3, flat w/drawn. Telemetry = afib. Full physical assessment documented. L foot dressing c/d/i. Bilateral heels floated. R midline w/heparin gtt at 2000 units (20 mL/hr). Turned
an positioned for comfort. Meds crushed and slurried in carafate per pt request. Oral hygiene complete. Pt refusing CHG for this shift, states 'it was all done today, everything'. Call helen w/in reach.
[2025-02-21 23:37] LABS: APTT 94.0 Sec (23.4-35.0)
[2025-02-22] VITALS (11 sets, daily range): BP systolic 119–169; BP diastolic 59–82; BMI 28.2
[2025-02-22 05:00] LABS: Hematocrit 24.5 % (39.0-52.0); Hemoglobin 7.8 g/dL (13.0-18.0); Mean Corp Hgb Conc. 31.8 g/dL (33.0-37.0); Mean Corpuscular Volume 90.4 fL (80.0-94.0); Nucleated Red Blood Cells % 0 % (-); Platelet Count 282 10^3/uL (130-400); Red Cell Dist. Width 15.0 % (11.5-14.5)
[2025-02-22 05:13] LABS: APTT 89.0 Sec (23.4-35.0)
[2025-02-22] MEDS: HEPARIN 25000 UNITS/250 ML IV ×2 (05:31→19:35)
[2025-02-22 05:53] LABS: Blood Urea Nitrogen 18 mg/dl (9-20); Calcium 8.8 mg/dl (8.4-10.2); Carbon Dioxide 31 mmol/L (22-30); Chloride 101 mmol/L (98-107); Estimated Creatinine Clearance 43 ml/min; Glucose 96 mg/dl (70-99); Potassium 3.4 mmol/L (3.5-5.1); Sodium 136 mmol/L (135-145); eGFR 51.45
[2025-02-22 07:18] LABS: Glucose - Point of Care 94 mg/dl (70-99)
[2025-02-22] MEDS: NOVOLOG FLEXPEN-LOW RESISTANCE SC ×3 (08:38→17:51)
[2025-02-22] MEDS: LIDOCAINE 4% PATCH 1 PATCH TOPICAL (08:47)
[2025-02-22] MEDS: PREVACID 30 MG PO ×2 (08:47→19:36)
[2025-02-22] MEDS: CARAFATE SUSPENSION 1 GM PO ×3 (08:47→18:09)
[2025-02-22] MEDS: LOPRESSOR 25 MG PO ×2 (08:47→19:36)
[2025-02-22] MEDS: TYLENOL 975 MG PO ×2 (08:47→18:09)
[2025-02-22] MEDS: DESENEX/MITRAZOL/ZEASORB 1 APPLIC TOPICAL ×2 (08:48→19:38)
--- NOTE | 2025-02-22 09:18 | W.PN.ID1 ---
Date of Service
Date of Service: February 22, 2025
Today's Communication
Continue daptomycin.
Assessment / Plan
# Vasculitic lesions
. Non-palpable purpura -> less likely leukocytoclastic vasculitis
. However, dc'd Vancomycin and monitor for improvement
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
# PAD, left 5th ischemic toe
. s/p CT angiogram
. Holding on vascular intervention at this time due to JESUS, per pt preference.
# JESUS
. HD started 02/02
. slowly improving; cautiously optimistic for recovery
# s/p Severe esophagitis
.02/14 s/p EGD
. Biopsy: acute ulcerated esophagitis. Negative HSV, CMV, fungal stains.
# s/p septic shock
# s/p suspected pneumonia/aspiration, completed 7d cefepime
# DM2 with neuropathy
- Wound cx MRSA
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
OR cx's : MRSA
Bone path proximal margin + osteomyelitis.
- 02/20 Vancomycin dc'd due to skin lesions
- Continue Daptomycin IV 800mg/800mg/1000mg with HD through 03/16/25 ( 6 weeks abx) from ray amp. Adjust dose base on renal function.
Follow CK <20. Hold atorvastatin while on Daptomycin
- Ongoing difficult shared decision making with Vascular, Parasitology Teacher regarding PAD intervention in setting of JESUS.
Discussed poor wound healing potential, suboptimal antibiotic level at site of osteo, and ischemia may progress if no vascular intervention.
Understandably, pt prefers to hold off on vascular intervention at this time since there is a chance of renal recovery.
# Conditions CLIPPING MARKER
Diabetes mellitus type 2
Hypertension
Atrial fibrillation on Xarelto
pacemaker placement
Chronic pain with spinal stimulator, not active; stimulator incompatible with MRI
Chronic left leg weakness due to history of back injury during lumbar procedure 2019
Lumbar laminectomy
Chief Complaint
-: Other (osteo of left fifth metatarsal)
Subjective / Review of Systems
Making urine.
Vital Signs / Physical Exam
Vital Signs
Vital Signs
Temp Pulse Resp BP Pulse Ox
98.4 F 84 10 150/69 98
02/22/25 07:55 02/22/25 08:47 02/22/25 08:00 02/22/25 08:47 02/21/25 23:22
Physical Exam
Constitutional: No Acute Distress
Cardiovascular: Irregular Rate and S1/S2
Gastrointestinal: Soft and Non Tender
Extremities: Negative Edema
Skin: Rash (red-purplish round patches on left dorsum hand, B/L arms, right elbow, R ankle/heel, decrease redness)
Neurological: AO x 3
Objective Data
Lab Data
Lab Results
02/22/25 04:40
02/22/25 04:40
ESR 78 mm/hour (0-20) H 01/28/25 12:23
PT 14.8 Sec (11.4-14.6) H 02/20/25 12:25
INR 1.11 02/20/25 12:25
APTT 89.0 Sec (23.4-35.0) H 02/22/25 04:39
Estimated Creat Clear 43 ml/min 02/22/25 04:40
Lactic Acid 1.7 mmol/L (0.7-2.0) 02/05/25 00:53
Total Bilirubin 0.8 mg/dl (0.2-1.3) 02/12/25 05:02
AST 21 U/L (17-59) 02/12/25 05:02
ALT 20 U/L (0-50) 02/12/25 05:02
Alkaline Phosphatase 135 U/L (38-126) H 02/12/25 05:02
C-Reactive Protein 228.10 mg/L (0.0-10.00) H 01/28/25 12:23
Most recent labs reviewed.
Micro Results:
02/03/25 21:30 Wound Culture - Final
Foot - Left Staph aureus MRSA
Gram Stain - Final
02/03/25 21:30 Anaerobic Culture - Final
Foot - Left NO ANAEROBES ISOLATED
02/03/25 21:30 Tissue Culture - Final
Foot - Left Staph aureus MRSA
Gram Stain - Final
02/02/25 13:44 Urine Culture - Final
Urine NO GROWTH
01/29/25 04:07 Blood Culture - Final
Blood/Venous No Growth - Final Report
01/28/25 12:24 Blood Culture - Final
Blood/Venous No Growth - Final Report
01/31/25 09:04 Wound Culture - Final
Foot - Left Staph aureus MRSA
Gram Stain - Final
02/01/25 19:47 Influenza Types A & B (GIFTY) - Final
Nasal Swab Negative for Influenza A & B, NAAT
Negative results must be combined with clinical observations
and patient history.
Nucleic Acid Amplification test (NAAT)performed on the
[employer] platform.
01/30/25 10:04 Wound Culture - Final
Foot - Left Staph aureus MRSA
Gram Stain - Final
01/28/25 17:44 MRSA Screen - Final
Nose No Methicillin Resistant Staphylococcus aureus isolated.
Imaging:
01/28/25 Left foot XRAY: No acute osseous abnormality. Mild soft tissue swelling along the lateral forefoot.
02/01/25 CXR: Hazy increased density over the left lower hemithorax, probably mainly due to a posteriorly layering pleural effusion.
02/03/25 CXR: Parenchymal opacity within the right lower lung and the left mid to lower lung, similar to recent radiograph. Main differential considerations of atelectasis and/or pneumonia.
02/04/25 CT LE: 1. Interval amputation of the phalanges of the left 5th toe and the 5th metatarsal head since the prior exam performed 02/01/2025.
2. Large soft tissue wound distal to the 5th metatarsal with soft tissue emphysema extending deep to the lateral cortex of the 4th metatarsal head.
3. Moderate subcutaneous edema throughout the left lower leg and thigh.
4. Moderate to severe calcific atherosclerotic plaque throughout the left lower extremity.
5. Small to moderate-sized left knee joint effusion.
6. Severe anasarca in the left lateral abdominal wall.
7. Moderate retroperitoneal and extraperitoneal edema in the pelvis.
8. Severe diffuse urinary bladder wall thickening with adjacent perivesical inflammation suggesting ACUTE CYSTITIS. Chronic urinary bladder outlet obstruction is also likely present given severe enlargement of the prostate gland.
9. Mild circumferential wall thickening and fluid distention of the rectum suggesting an acute prostatitis. Rectal tube in place.
02/07/25 CXR/AXR: Extremely low lung volumes. Some bibasilar opacification which could represent atelectasis and/or pneumonia and small bilateral pleural effusions, left possibly greater than right. Air seen throughout small bowel, few loops
borderline prominent, nonspecific air-fluid levels, most likely representing ileus. No free air.
[2025-02-22] MEDS: NOVOLOG FLEXPEN SC (10:33)
[2025-02-22] MEDS: NOVOLOG FLEXPEN 8 UNITS SC ×3 (10:39→18:09)
--- NOTE | 2025-02-22 11:07 | W.PN.NEPH.PH ---
Today's Communication / Plan
-
No acute need for dialysis today and should be okay through the weekend and appears to be recovering
Assessment/Plan
-
IMP:
TME
Septic shock
Lactic acidosis
Sepsis 2/2 to Diabetic left foot cellulitis w/ lymphangitis
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
Acute kidney injury-baseline cr 0.9-1.1
Peripheral artery disease
hyponatremia
IDDM 2
Essential hypertension
Constipation
A-fib�permanent
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
HLD
Obesity due to excess calories
Plan:
JESUS--
Creatinine levels lower range between dialysis treatments:
s/p tunneled catheter on 01/31
cont abx per ID
Creatinine at 1.4 with dialysis yesterday but appears to be improving with nonoliguric
Will hold dialysis to the weekend and likely hold dialysis on Monday
Discussed with daughter at bedside
-
-
Date of Service: February 22, 2025
CC / HPI / ROS
-
Chief Complaint:
JESUS
History of Present Illness:
Urine output improved
JESUS/HD tolerated HD yesterday
BP stable
Remains in
Review of Systems:
Urine output increasing subjectively per patient
no cp or sob noted
no fever
Weights down following dialysis with larger UF
Labs
-
Labs:
WBC 5.3 10^3/uL (4.8-10.8) 02/22/25 04:40
RBC 2.71 10^6/uL (4.70-6.10) L 02/22/25 04:40
Hgb 7.8 g/dL (13.0-18.0) L 02/22/25 04:40
Hct 24.5 % (39.0-52.0) L 02/22/25 04:40
Plt Count 282 10^3/uL (130-400) D 02/22/25 04:40
Sodium 136 mmol/L (135-145) 02/22/25 04:40
Potassium 3.4 mmol/L (3.5-5.1) L 02/22/25 04:40
Chloride 101 mmol/L (98-107) 02/22/25 04:40
Carbon Dioxide 31 mmol/L (22-30) H 02/22/25 04:40
BUN 18 mg/dl (9-20) 02/22/25 04:40
Creatinine 1.4 mg/dL (0.7-1.3) H 02/22/25 04:40
eGFR 51.45 02/22/25 04:40
Glucose 96 mg/dl (70-99) 02/22/25 04:40
Calcium 8.8 mg/dl (8.4-10.2) 02/22/25 04:40
Phosphorus 2.7 mg/dl (2.5-4.5) 02/16/25 05:33
Myy-M-Mvzughbqacc Pept > 58088 pg/ml 02/01/25 20:16
Albumin 2.7 g/dl (3.5-5.0) L 02/12/25 05:02
Physical Exam
-
Vital Signs:
Vital Signs
Temp Pulse Resp BP Pulse Ox
98.4 F 66 13 141/62 98
02/22/25 07:55 02/22/25 10:00 02/22/25 10:00 02/22/25 10:00 02/21/25 23:22
Lung Excursion:: Normal
Abdomen:: Soft
Extremity Edema:: None: Bilateral:
Gonzalez Catheter: No
--- NOTE | 2025-02-22 12:46 | W.PN.HOSP.TC ---
Today's Communication/Plan
-
Oral potassium
Assessment / Plan
Assessment / Plan
Gen-awake, alert, NAD
HEENT-NC, AT, anicteric, clear oral mm, Dobbhoff tube
Neck-supple
CV-reg, no M, +S1/S2
Lungs-clear B/L
Abd-soft, NT, ND
Ext- left upper extremity edema
Musculoskeletal-no cyanosis, left foot dressing intact
Skin-warm and dry
Neuro-grossly non-focal
Psych-calm, cooperative
Aspiration pneumonitis/acute hypoxic respiratory failure - triggered by vomiting, possibly triggered by ileus. Oxygenation improved, now on room air.
Acute TME - due to sepsis, shock, critical illness. Mental status much improved and now at baseline.
Septic shock - due to to left fifth metatarsal abscess, acute osteomyelitis. Sepsis and shock resolved.
Chronic left lower extremity weakness due to back injury during procedure 2019
-IV daptomycin per ID. Goal is 6 weeks of antibiotics.
-Shock resolved. Off vasopressors. Blood cultures negative so far. Wound culture shows MRSA.
-Leukocytosis improved overall. Afebrile.
-Unable to have MRI due to spinal stimulator not active
-Wound culture grew MRSA
-Patient underwent left partial fifth ray amputation 02/03. Podiatry following. Path report from 02/04 shows focal acute osteomyelitis, clean margin from left foot fifth ray.
Nonblanching skin lesions -possibly vasculitis, possibly due to vancomycin. Now off vancomycin and on daptomycin per ID.
PAD
-Per patient's , the PAD in his left leg is a lot more severe than his right leg
-CT angiogram done 02/01 shows multifocal atherosclerotic disease throughout the bilateral lower extremities. Diminished flow in the left anterior tibial artery with some apparent distal reconstitution, diminished flow at the distal aspect of the
left peroneal artery at the level of the ankle. Short segment high-grade stenosis of the distal right SFA.
-Vascular surgery has been having ongoing discussions with family regarding goals of care and decision for left lower extremity revascularization with potential risk for further renal deterioration.
Patient prefers to hold off on lower extremity revascularization and risk of contrast exposure on kidney function. Wants to pursue in the future if needed. I asked vascular surgery, Dr. Gonzalez, to revisit patient and discuss plan of care and to
include patient's .
Lactic acidosis due to sepsis/shock - normalized.
-Differential diagnosis include metformin induced versus worsening sepsis
-Metformin discontinued 02/01
-MAP has been consistently greater than 65
Acute kidney injury
- due to septic shock. Anuric. Gonzalez catheter was placed. Etiology of JESUS most likely due to septic shock and medications and less likely due to contrast-induced nephropathy as contrast exposure was on 02/01, creatinine was 3.3 morning of 02/01.
-Appreciate nephrology input, dialysis started 02/02. Dialysis IJ catheter was placed.
-High anion gap metabolic acidosis due to septic shock, lactic acidosis. Metabolic acidosis resolved. Off sodium bicarbonate IV.
-Hold metformin, lisinopril, hydrochlorothiazide, trend creatinine, no nephrotoxic drugs or NSAIDs
-Hemodialysis as per nephrology
-Holding angiogram until renal recovery can be determined
Weight seems unreliable
Ileus -resolved.
- developed nausea and vomiting on 02/03. Briefly treated with NG tube.
- Repeat x-ray 02/07 showed air throughout the small bowel, few loops borderline prominent, nonspecific air-fluid levels, most likely ileus. No free air.
- Held narcotics/IV Dilaudid prn (started Tylenol for pain control instead)
- Patient having bowel movements
- Repeat x-ray from 02/12/25 was okay
Odynophagia secondary to Severe Esophagitis found on EGD 02/13/25
Poor PO Intake Secondary to Above
-GI performed EGD on 02/13/25: showed severe esophagitis
Path report shows acute ulcerative esophagitis, immunohistochemical stains negative for HSV 1 and 2, CMV. No fungal organisms identified.
-Continue PPI BID and Carafate
-On discharge cont Protonix PO BID x 4 weeks then daily and carafate AC and HS with wean to BID in 2 weeks then daily x 2 weeks then stop
Acute GI bleed/acute esophagitis -GI bleed resolved. Stools have been brown.
EGD performed 02/13 shows LA grade D reflux esophagitis without bleeding. Normal stomach, normal duodenum. Dobbhoff tube clogged as per nursing. Now that patient tolerating soft diet can DC Dobbhoff tube.
-Acute GI bleed exacerbated by anticoagulation with IV heparin.
-Continue PPI twice daily and Carafate.
Acute blood loss anemia
- due to GI bleed as above. Hemoglobin 7.8. Asymptomatic. Monitor closely. Admission hemoglobin was 11.6. May have baseline chronic anemia of unclear etiology.
Suspect component of anemia related to critical illness as well as renal failure.
Hypokalemia -will replete orally.
Mild Hematuria -- RESOLVED
- Noted on 02/12/25, later resolved while on Heparin Drip
- Monitor for now
LUE edema
LUE pain from needlesticks
- Doppler ultrasound negative for DVT.
- Ordered scheduled Tylenol 1000 mg Q8H (which is helping)
Acute on chronic heart failure with preserved ejection fraction
- Cardiology saw patient this hospitalization, continue dialysis as per nephrology
- Dr. Munoz is his brush sander
Troponin elevation
- Suspect acute nonischemic myocardial injury due to septic shock. Troponins trended down.
Permanent atrial fibrillation -
-Continue Heparin Drip. Was on Xarelto prior to admission -- plan to transition back to oral anticoagulation once no further procedures planned
-Outpatient Toprol XL added back on 02/12/25
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
Known moderate nonobstructive coronary disease in 2021
-Continue statin
2 consecutive episodes of VT overnight 02/10/25 to 02/11/25
-Cardiology following
-Outpatient Toprol XL added back on 02/12/25 -- changed to Lopressor on 02/13/25 given that Toprol cannot be given by tube feeds
-Monitor in IMU
Hyponatremia
- Resolved.
Hyperphosphatemia
- due to JESUS. Improving. Repeat phosphorus normal.
DM 2 with hyperglycemia -glucoses have improved overnight, 124 this morning, 161 last night.
-At home he was on insulin degludec 24 units at bedtime, NovoLog sliding scale with meals, metformin.
-Hemoglobin A1c 7.1 on 01/13/2025
-Hold metformin 1000 mg daily due to JESUS and lactic acidosis earlier this hospitalization
Continue Lantus to 24 units at bedtime, decrease aspart to 8 units AC
-Dr. Pathak is his wardrobe consultant
Essential hypertension
- Continue antihypertensives
Hyperlipidemia
- Was on lovastatin prior to admission -- continue this or equivalent statin for it's cardioprotective effects and hyperlipidemia history
Chronic back pain
-Patient sees a pain management provider outpatient
Obesity due to excess calories
DVT Prophylaxis: SCDs. Heparin Drip.
Code Status: Full code
Dispo -SNF when medically stable. Still waiting for vascular surgery to meet with patient and family.
Anticipated Discharge: > 48 hours
Subjective/Interval History
-
Date of Service: February 22, 2025
Patient seen and examined. No complaints.
Objective Data
-
Labs:
Laboratory Results
02/22/25 02/22/25
04:39 04:40
WBC 5.3
Hgb 7.8 L
Hct 24.5 L
Plt Count 282 D
APTT 89.0 H
Sodium 136
Potassium 3.4 L
Chloride 101
Carbon Dioxide 31 H
BUN 18
Creatinine 1.4 H
Glucose 96
Calcium 8.8
Vital Signs:
Vital Signs
Temp Pulse Resp BP Pulse Ox
98.4 F 66 13 141/62 98
02/22/25 07:55 02/22/25 10:00 02/22/25 10:00 02/22/25 10:00 02/21/25 23:22
I&O
02/21/25 02/22/25 02/23/25
06:59 06:59 06:59
Intake Total 240 / 240
Output Total 300 / 300
Balance -60 / -60
Review of Systems
-
History Source: Patient
All other systems: Reviewed and negative
[2025-02-22 13:01] LABS: Glucose - Point of Care 80 mg/dl (70-99)
[2025-02-22 13:13] LABS: Magnesium 1.5 mg/dl (1.6-2.3)
[2025-02-22] MEDS: KCL 40 MEQ PO (13:34)
[2025-02-22] MEDS: MAGNESIUM SULFATE 50 IV (15:11)
--- NOTE | 2025-02-22 17:00 | PTCARENOTE ---
Patient took pills whole today. Patient had a BM on bedpan. He was able to use urinal himself. He >85% of all meals. Assessment, care and VS as charted.
[2025-02-22 18:01] LABS: Glucose - Point of Care 80 mg/dl (70-99)
[2025-02-22] MEDS: REMOVE LIDOCAINE PATCH 1 PATCH REMOVE (19:39)
[2025-02-22] MEDS: LANTUS 0.24 UNITS SC (21:28)
[2025-02-22] MEDS: TYLENOL PO (21:33)
[2025-02-22] MEDS: CARAFATE SUSPENSION PO (21:33)
--- NOTE | 2025-02-22 21:35 | PTCARENOTE ---
Pt c/o stomach ache. Denies nausea, describes ache as pain, denies gas. Refuses scheduled tylenol and carafate. Education provided. Call cervantes within reach. Care ongoing. Heparin gtt maintained, see worklist.
[2025-02-22 22:17] LABS: Glucose - Point of Care 131 mg/dl (70-99)
[2025-02-22] MEDS: OFIRMEV 100 IV (23:11)
[2025-02-23] VITALS (15 sets, daily range): BP systolic 118–186; BP diastolic 66–102; BMI 28.1
--- NOTE | 2025-02-23 00:34 | PTCARENOTE ---
Addendum entered by Ellyn Lisa 02/23/25 05:20:
Continues with elevated BP despite dose of IV hydralazine. Now with elevated HR >120. IV lopressor given per AUG.
Original Note:
Pt continues to c/o abdominal pain, mostly R sided. BENEFITS CONSULTANT contacted. Pt medicated per AUG.
[2025-02-23] MEDS: DULCOLAX 10 MG RECTAL (00:48)
[2025-02-23] MEDS: MORPHINE SULFATE 1 MG IV ×2 (00:48→09:23)
[2025-02-23] MEDS: APRESOLINE 5 MG IV (02:33)
--- NOTE | 2025-02-23 02:58 | W.PN.UPDATE ---
Update Note
Progress Note Update
Patient c/o abdominal pain described as 'stomach ache'. Denies nausea refused antiemetic. Requested something for pain (refused 2300 ordered tylenol dose). Hx ileus earlier this admission but now having formed bms. Morphine 1 mg IV given with
minimal effect. EGD last week showed normal stomach/duodenum but esophagitis. Diet ordered is soft/bite-sized. Dulcolax supp and second dose of morphine 1 mg IV. Obstruction series with chest ordered. Had one formed bm since supp along with flatus.
[2025-02-23] MEDS: LOPRESSOR 5 MG IV (05:16)
[2025-02-23 05:33] LABS: APTT 63.2 Sec (23.4-35.0)
[2025-02-23 05:43] LABS: ALT (SGPT) 16 U/L (0-50); AST (SGOT) 19 U/L (17-59); Albumin 3.5 g/dl (3.5-5.0); Alkaline Phosphatase 165 U/L (38-126); Blood Urea Nitrogen 21 mg/dl (9-20); Calcium 9.5 mg/dl (8.4-10.2); Carbon Dioxide 26 mmol/L (22-30); Chloride 103 mmol/L (98-107); Estimated Creatinine Clearance 38 ml/min; Glucose 229 mg/dl (70-99); Potassium 5.1 mmol/L (3.5-5.1); Sodium 139 mmol/L (135-145); Total Protein 7.1 g/dl (6.3-8.2); eGFR 43.83
[2025-02-23] MEDS: CARAFATE SUSPENSION PO ×4 (09:07→21:53)
[2025-02-23] MEDS: LOPRESSOR 25 MG PO ×2 (09:08→20:13)
[2025-02-23] MEDS: DESENEX/MITRAZOL/ZEASORB 1 APPLIC TOPICAL ×2 (09:08→20:13)
[2025-02-23] MEDS: PREVACID PO (09:09)
[2025-02-23] MEDS: LIDOCAINE 4% PATCH TOPICAL ×2 (09:09→18:57)
[2025-02-23] MEDS: TYLENOL PO ×2 (09:09→17:58)
[2025-02-23] MEDS: NOVOLOG FLEXPEN-LOW RESISTANCE 2 UNITS SC (09:13)
[2025-02-23 09:24] LABS: Glucose - Point of Care 208 mg/dl (70-99)
[2025-02-23] MEDS: HEPARIN 25000 UNITS/250 ML IV ×2 (09:32→21:50)
--- NOTE | 2025-02-23 09:34 | W.PN.ID1 ---
Date of Service
Date of Service: February 23, 2025
Today's Communication
Continue Daptomycin.
Assessment / Plan
# Vasculitic lesions, improving
. Non-palpable purpura -> less likely leukocytoclastic vasculitis
. However, dc'd Vancomycin and monitor for improvement
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
# PAD, left 5th ischemic toe
. s/p CT angiogram
. Holding on vascular intervention at this time due to JESUS, per pt preference.
# JESUS
. HD started 02/02
. slowly improving; cautiously optimistic for recovery
# s/p Severe esophagitis
.02/14 s/p EGD
. Biopsy: acute ulcerated esophagitis. Negative HSV, CMV, fungal stains.
# s/p septic shock
# s/p suspected pneumonia/aspiration, completed 7d cefepime
# DM2 with neuropathy
- Wound cx MRSA
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
OR cx's : MRSA
Bone path proximal margin + osteomyelitis.
- 02/20 Vancomycin dc'd due to skin lesions
- Continue Daptomycin IV 800mg/800mg/1000mg with HD through 03/16/25 ( 6 weeks abx) from ray amp. Adjust dose base on renal function.
Follow CK in am. Hold atorvastatin while on Daptomycin
- Ongoing difficult shared decision making with Vascular, Obstetrics Gynecology Physician regarding PAD intervention in setting of JESUS.
Discussed poor wound healing potential, suboptimal antibiotic level at site of osteo, and ischemia may progress if no vascular intervention.
Understandably, pt prefers to hold off on vascular intervention at this time since there is a chance of renal recovery.
# Conditions MERCHANDISER SEASONAL
Diabetes mellitus type 2
Hypertension
Atrial fibrillation on Xarelto
pacemaker placement
Chronic pain with spinal stimulator, not active; stimulator incompatible with MRI
Chronic left leg weakness due to history of back injury during lumbar procedure 2019
Lumbar laminectomy
Chief Complaint
-: Other (osteo of left fifth metatarsal)
Subjective / Review of Systems
Feels OK
Vital Signs / Physical Exam
Vital Signs
Vital Signs
Temp Pulse Resp BP Pulse Ox
98.4 F 98 23 143/72 94
02/23/25 08:13 02/23/25 09:08 02/23/25 08:00 02/23/25 09:08 02/22/25 20:11
Physical Exam
Constitutional: No Acute Distress and Comfortable
Cardiovascular: Irregular Rate and S1/S2
Gastrointestinal: Soft and Non Tender
Extremities: Negative Edema
Skin: Rash (red-purplish round patches on left dorsum hand, B/L arms, right elbow, R ankle/heel, improving)
Neurological: AO x 3
Objective Data
Lab Data
Lab Results
02/23/25 05:05
ESR 78 mm/hour (0-20) H 01/28/25 12:23
PT 14.8 Sec (11.4-14.6) H 02/20/25 12:25
INR 1.11 02/20/25 12:25
APTT 63.2 Sec (23.4-35.0) H 02/23/25 05:05
Estimated Creat Clear 38 ml/min 02/23/25 05:05
Lactic Acid 1.7 mmol/L (0.7-2.0) 02/05/25 00:53
Total Bilirubin 0.6 mg/dl (0.2-1.3) 02/23/25 05:05
AST 19 U/L (17-59) 02/23/25 05:05
ALT 16 U/L (0-50) 02/23/25 05:05
Alkaline Phosphatase 165 U/L (38-126) H 02/23/25 05:05
C-Reactive Protein 228.10 mg/L (0.0-10.00) H 01/28/25 12:23
Most recent labs reviewed.
Micro Results:
02/03/25 21:30 Wound Culture - Final
Foot - Left Staph aureus MRSA
Gram Stain - Final
02/03/25 21:30 Anaerobic Culture - Final
Foot - Left NO ANAEROBES ISOLATED
02/03/25 21:30 Tissue Culture - Final
Foot - Left Staph aureus MRSA
Gram Stain - Final
02/02/25 13:44 Urine Culture - Final
Urine NO GROWTH
01/29/25 04:07 Blood Culture - Final
Blood/Venous No Growth - Final Report
01/28/25 12:24 Blood Culture - Final
Blood/Venous No Growth - Final Report
01/31/25 09:04 Wound Culture - Final
Foot - Left Staph aureus MRSA
Gram Stain - Final
02/01/25 19:47 Influenza Types A & B (GIFTY) - Final
Nasal Swab Negative for Influenza A & B, NAAT
Negative results must be combined with clinical observations
and patient history.
Nucleic Acid Amplification test (NAAT)performed on the
[employer] platform.
01/30/25 10:04 Wound Culture - Final
Foot - Left Staph aureus MRSA
Gram Stain - Final
01/28/25 17:44 MRSA Screen - Final
Nose No Methicillin Resistant Staphylococcus aureus isolated.
Imaging:
01/28/25 Left foot XRAY: No acute osseous abnormality. Mild soft tissue swelling along the lateral forefoot.
02/01/25 CXR: Hazy increased density over the left lower hemithorax, probably mainly due to a posteriorly layering pleural effusion.
02/03/25 CXR: Parenchymal opacity within the right lower lung and the left mid to lower lung, similar to recent radiograph. Main differential considerations of atelectasis and/or pneumonia.
02/04/25 CT LE: 1. Interval amputation of the phalanges of the left 5th toe and the 5th metatarsal head since the prior exam performed 02/01/2025.
2. Large soft tissue wound distal to the 5th metatarsal with soft tissue emphysema extending deep to the lateral cortex of the 4th metatarsal head.
3. Moderate subcutaneous edema throughout the left lower leg and thigh.
4. Moderate to severe calcific atherosclerotic plaque throughout the left lower extremity.
5. Small to moderate-sized left knee joint effusion.
6. Severe anasarca in the left lateral abdominal wall.
7. Moderate retroperitoneal and extraperitoneal edema in the pelvis.
8. Severe diffuse urinary bladder wall thickening with adjacent perivesical inflammation suggesting ACUTE CYSTITIS. Chronic urinary bladder outlet obstruction is also likely present given severe enlargement of the prostate gland.
9. Mild circumferential wall thickening and fluid distention of the rectum suggesting an acute prostatitis. Rectal tube in place.
02/07/25 CXR/AXR: Extremely low lung volumes. Some bibasilar opacification which could represent atelectasis and/or pneumonia and small bilateral pleural effusions, left possibly greater than right. Air seen throughout small bowel, few loops
borderline prominent, nonspecific air-fluid levels, most likely representing ileus. No free air.
--- NOTE | 2025-02-23 09:41 | PTCARENOTE ---
Patient sent to xray. Ordered labs drawn and sent.
[2025-02-23 10:00] LABS: Hematocrit 27.1 % (39.0-52.0); Hemoglobin 8.7 g/dL (13.0-18.0); Mean Corp Hgb Conc. 32.1 g/dL (33.0-37.0); Mean Corpuscular Volume 90.0 fL (80.0-94.0); Nucleated Red Blood Cells % 0 % (-); Platelet Count 394 10^3/uL (130-400); Red Cell Dist. Width 14.9 % (11.5-14.5)
[2025-02-23 10:10] LABS: Lipase 125 U/L (23-300)
--- NOTE | 2025-02-23 10:21 | PTCARENOTE ---
Patient returned from XRAY. Pt more withdrawn this morning, nodding his head yes or no to most questions and having to repeat some questions for patient to answer. Pt rated abdominal pain 5/10 this morning. at bedside and aware. Pt denies
nausea at this time. Pt refusing most medications this morning, except Metoprolol. Pt not wanting to eat breakfast. Daughter at bedside and updated. Assessment, care and VS as charted.
[2025-02-23] MEDS: NOVOLOG FLEXPEN SC ×3 (10:33→17:59)
--- NOTE | 2025-02-23 10:49 | W.PN.HOSP.TC ---
Addendum entered and electronically signed by Jed Bravo DO 02/23/25 13:59:
No obstruction noted on x-ray.
Radiologist read it as large left lower lobe airspace consolidation that could be atelectasis versus pneumonia.
Patient not hypoxic, not requiring oxygen.
Rapid rise in WBC count with associated episode of vomiting could be related to aspiration pneumonitis. Clinically doubt pneumonia. He is afebrile.
Recheck WBC count tomorrow.
He has been refusing Carafate and lansoprazole.
Will change to IV Protonix.
Original Note:
Today's Communication/Plan
-
Follow-up obstruction series
Assessment / Plan
Assessment / Plan
Gen-awake, alert, NAD
HEENT-NC, AT, anicteric, clear oral mm, Dobbhoff tube
Neck-supple
CV-reg, no M, +S1/S2
Lungs-clear B/L
Abd-soft, NT, ND
Ext- left upper extremity edema
Musculoskeletal-no cyanosis, left foot dressing intact
Skin-warm and dry
Neuro-grossly non-focal
Psych-calm, cooperative
Aspiration pneumonitis/acute hypoxic respiratory failure - triggered by vomiting, possibly triggered by ileus. Oxygenation improved, now on room air.
Acute TME - due to sepsis, shock, critical illness. Mental status much improved and now at baseline.
Septic shock - due to to left fifth metatarsal abscess, acute osteomyelitis. Sepsis and shock resolved.
Chronic left lower extremity weakness due to back injury during procedure 2019
-IV daptomycin per ID. Goal is 6 weeks of antibiotics.
-Shock resolved. Off vasopressors. Blood cultures negative so far. Wound culture shows MRSA.
-Leukocytosis improved overall. Afebrile.
-Unable to have MRI due to spinal stimulator not active
-Wound culture grew MRSA
-Patient underwent left partial fifth ray amputation 02/03. Podiatry following. Path report from 02/04 shows focal acute osteomyelitis, clean margin from left foot fifth ray.
Nonblanching skin lesions -unclear if vasculitis, possibly due to vancomycin. Not truly palpable purpura. Now off vancomycin and on daptomycin per ID.
PAD
-Per patient's , the PAD in his left leg is a lot more severe than his right leg
-CT angiogram done 02/01 shows multifocal atherosclerotic disease throughout the bilateral lower extremities. Diminished flow in the left anterior tibial artery with some apparent distal reconstitution, diminished flow at the distal aspect of the
left peroneal artery at the level of the ankle. Short segment high-grade stenosis of the distal right SFA.
-Vascular surgery has been having ongoing discussions with family regarding goals of care and decision for left lower extremity revascularization with potential risk for further renal deterioration.
Patient prefers to hold off on lower extremity revascularization and risk of contrast exposure on kidney function. Wants to pursue in the future if needed. I asked vascular surgery, Dr. Gonzalez, to revisit patient and discuss plan of care and to
include patient's .
Lactic acidosis due to sepsis/shock - normalized.
-Differential diagnosis include metformin induced versus worsening sepsis
-Metformin discontinued 02/01
-MAP has been consistently greater than 65
Acute kidney injury
- due to septic shock. Anuric. Gonzalez catheter was placed. Etiology of JESUS most likely due to septic shock and medications and less likely due to contrast-induced nephropathy as contrast exposure was on 02/01, creatinine was 3.3 morning of 02/01.
-Appreciate nephrology input, dialysis started 02/02. Dialysis IJ catheter was placed.
-High anion gap metabolic acidosis due to septic shock, lactic acidosis. Metabolic acidosis resolved. Off sodium bicarbonate IV.
-Hold metformin, lisinopril, hydrochlorothiazide, trend creatinine, no nephrotoxic drugs or NSAIDs
-Hemodialysis as per nephrology
-Holding angiogram until renal recovery can be determined
Weight seems unreliable
Ileus -resolved. Did have some abdominal pain overnight and was treated with morphine. Obstruction series ordered, report pending. Bowels are moving however.
- developed nausea and vomiting on 02/03. Briefly treated with NG tube.
- Repeat x-ray 02/07 showed air throughout the small bowel, few loops borderline prominent, nonspecific air-fluid levels, most likely ileus. No free air.
- Held narcotics/IV Dilaudid prn (started Tylenol for pain control instead)
- Patient having bowel movements
- Repeat x-ray from 02/12/25 was okay
Odynophagia secondary to Severe Esophagitis found on EGD 02/13/25
Poor PO Intake Secondary to Above
-GI performed EGD on 02/13/25: showed severe esophagitis
Path report shows acute ulcerative esophagitis, immunohistochemical stains negative for HSV 1 and 2, CMV. No fungal organisms identified.
-Continue PPI BID and Carafate
-On discharge cont Protonix PO BID x 4 weeks then daily and carafate AC and HS with wean to BID in 2 weeks then daily x 2 weeks then stop
Acute GI bleed/acute esophagitis -GI bleed resolved. Stools have been brown.
EGD performed 02/13 shows LA grade D reflux esophagitis without bleeding. Normal stomach, normal duodenum. Dobbhoff tube clogged as per nursing. Now that patient tolerating soft diet can DC Dobbhoff tube.
-Acute GI bleed exacerbated by anticoagulation with IV heparin.
-Continue PPI twice daily and Carafate.
Acute blood loss anemia
- due to GI bleed as above. Hemoglobin 7.8. Asymptomatic. Monitor closely. Admission hemoglobin was 11.6. May have baseline chronic anemia of unclear etiology.
Suspect component of anemia related to critical illness as well as renal failure.
Hypokalemia -will replete orally.
Mild Hematuria -- RESOLVED
- Noted on 02/12/25, later resolved while on Heparin Drip
- Monitor for now
LUE edema
LUE pain from needlesticks
- Doppler ultrasound negative for DVT.
- Ordered scheduled Tylenol 1000 mg Q8H (which is helping)
Acute on chronic heart failure with preserved ejection fraction
- Cardiology saw patient this hospitalization, continue dialysis as per nephrology
- Dr. 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
Troponin elevation
- Suspect acute nonischemic myocardial injury due to septic shock. Troponins trended down.
Permanent atrial fibrillation -
-Continue Heparin Drip. Was on Xarelto prior to admission -- plan to transition back to oral anticoagulation once no further procedures planned
-Outpatient Toprol XL added back on 02/12/25
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
Known moderate nonobstructive coronary disease in 2021
-Continue statin
2 consecutive episodes of VT overnight 02/10/25 to 02/11/25
-Cardiology following
-Outpatient Toprol XL added back on 02/12/25 -- changed to Lopressor on 02/13/25 given that Toprol cannot be given by tube feeds
-Monitor in IMU
Hyponatremia
- Resolved.
Hyperphosphatemia
- due to JESUS. Improving. Repeat phosphorus normal.
DM 2 with hyperglycemia -glucoses have improved overnight, 124 this morning, 161 last night.
-At home he was on insulin degludec 24 units at bedtime, NovoLog sliding scale with meals, metformin.
-Hemoglobin A1c 7.1 on 01/13/2025
-Hold metformin 1000 mg daily due to JESUS and lactic acidosis earlier this hospitalization
Continue Lantus to 24 units at bedtime, decrease aspart to 8 units AC
-Dr. Pathak is his waybill clerk
Essential hypertension
- Continue antihypertensives
Hyperlipidemia
- Was on lovastatin prior to admission -- continue this or equivalent statin for it's cardioprotective effects and hyperlipidemia history
Chronic back pain
-Patient sees a pain management provider outpatient
Obesity due to excess calories
DVT Prophylaxis: SCDs. Heparin Drip.
Code Status: Full code
Dispo -SNF when medically stable. Still waiting for vascular surgery to meet with patient and family.
Anticipated Discharge: > 48 hours
Subjective/Interval History
-
Date of Service: February 23, 2025
Patient seen and examined. Events overnight noted, patient had abdominal pain, now improving.
Objective Data
-
Labs:
Laboratory Results
02/23/25 02/23/25 02/23/25
05:05 09:29 11:45
WBC 21.5 H
Hgb 8.7 L
Hct 27.1 L
Plt Count 394 D
APTT 63.2 H Pending
Sodium 139
Potassium 5.1 D
Chloride 103
Carbon Dioxide 26
BUN 21 H
Creatinine 1.6 H
Glucose 229 H
Calcium 9.5
Total Bilirubin 0.6
AST 19
ALT 16
Alkaline Phosphatase 165 H
Vital Signs:
Vital Signs
Temp Pulse Resp BP Pulse Ox
98.4 F 98 23 143/72 94
02/23/25 08:13 02/23/25 09:08 02/23/25 08:00 02/23/25 09:08 02/22/25 20:11
I&O
02/22/25 02/23/25 02/24/25
06:59 06:59 06:59
Intake Total 770 / 770
Output Total 1075 / 1075
Balance -305 / -305
Review of Systems
-
History Source: Patient
All other systems: Reviewed and negative
[2025-02-23] MEDS: NOVOLOG FLEXPEN-LOW RESISTANCE 1 UNITS SC ×2 (12:02→17:59)
[2025-02-23 12:08] LABS: Glucose - Point of Care 187 mg/dl (70-99)
[2025-02-23 12:19] LABS: APTT 84.8 Sec (23.4-35.0)
--- NOTE | 2025-02-23 16:11 | W.PN.NEPH.PH ---
Today's Communication / Plan
-
AM labs
Trend white blood cell count
Assessment/Plan
-
IMP:
TME
Septic shock
Lactic acidosis
Sepsis 2/2 to Diabetic left foot cellulitis w/ lymphangitis
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
Acute kidney injury-baseline cr 0.9-1.1
Peripheral artery disease
hyponatremia
IDDM 2
Essential hypertension
Constipation
A-fib�permanent
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
HLD
Obesity due to excess calories
Plan:
JESUS--
Creatinine levels lower range between dialysis treatments:
s/p tunneled catheter on 01/31
cont abx per ID
Creatinine at 1.6 withbut appears to be improving with nonoliguric
Will hold dialysis to the and likely hold dialysis on Monday
Discussed with daughter at bedside
He did have a spike in his white blood cell count pretty significantly to 24.
He is afebrile. He did have episode of vomiting and abdominal pain overnight with negative imaging.
Discussed with infectious disease and primary team will continue to monitor
-
-
Date of Service: February 23, 2025
CC / HPI / ROS
-
Chief Complaint:
JESUS
History of Present Illness:
Urine output improved
JESUS/HD tolerated HD yesterday
BP stable
Remains in
Review of Systems:
Urine output increasing subjectively per patient
no cp or sob noted
no fever
Labs
-
Labs:
WBC 21.5 10^3/uL (4.8-10.8) H 02/23/25 09:29
RBC 3.01 10^6/uL (4.70-6.10) L 02/23/25 09:29
Hgb 8.7 g/dL (13.0-18.0) L 02/23/25 09:29
Hct 27.1 % (39.0-52.0) L 02/23/25 09:29
Plt Count 394 10^3/uL (130-400) D 02/23/25 09:29
Sodium 139 mmol/L (135-145) 02/23/25 05:05
Potassium 5.1 mmol/L (3.5-5.1) D 02/23/25 05:05
Chloride 103 mmol/L (98-107) 02/23/25 05:05
Carbon Dioxide 26 mmol/L (22-30) 02/23/25 05:05
BUN 21 mg/dl (9-20) H 02/23/25 05:05
Creatinine 1.6 mg/dL (0.7-1.3) H 02/23/25 05:05
eGFR 43.83 02/23/25 05:05
Glucose 229 mg/dl (70-99) H 02/23/25 05:05
Calcium 9.5 mg/dl (8.4-10.2) 02/23/25 05:05
Phosphorus 2.7 mg/dl (2.5-4.5) 02/16/25 05:33
Zzr-K-Ayivbaxrcjq Pept > 68688 pg/ml 02/01/25 20:16
Albumin 3.5 g/dl (3.5-5.0) 02/23/25 05:05
Physical Exam
-
Vital Signs:
Vital Signs
Temp Pulse Resp BP Pulse Ox
99.8 F 96 22 144/71 94
02/23/25 15:29 02/23/25 14:00 02/23/25 14:00 02/23/25 14:00 02/22/25 20:11
Respiratory:: Bilateral: Coarse
Lung Excursion:: Normal
Abdomen:: Soft
Extremity Edema:: None: Bilateral:
Gonzalez Catheter: No
--- NOTE | 2025-02-23 17:14 | W.PN.UPDATE ---
Update Note
Progress Note Update
nursing made me aware pt has RUQ pain.
X ray from last night noted.
Has gallstones
Exam with RUQ tenderness. No peritoneal signs.
Will get an USS
Morphine for pain
D/W RN
D/w Family at bed side
[2025-02-23] MEDS: MORPHINE SULFATE 2 MG IV (17:59)
[2025-02-23 18:10] LABS: Glucose - Point of Care 193 mg/dl (70-99)
[2025-02-23 18:53] LABS: APTT 90.6 Sec (23.4-35.0)
[2025-02-23] MEDS: NSS (PRESERVATIVE FREE) 10 ML IV (20:13)
[2025-02-23] MEDS: PROTONIX IV 40 MG IV (20:13)
[2025-02-23] MEDS: REMOVE LIDOCAINE PATCH 1 PATCH REMOVE (20:14)
--- NOTE | 2025-02-23 21:00 | W.PN.UPDATE ---
Update Note
Progress Note Update
Reviewed ultrasound results with and patient. Explained it appears he has cholecystitis but it appears there are no stones blocking any ducts. In agreement with this could be reason for leukocytosis. Added ceftriaxone IV for now.
[2025-02-23 21:49] LABS: Glucose - Point of Care 173 mg/dl (70-99)
[2025-02-23] MEDS: TYLENOL 975 MG PO (21:52)
[2025-02-23] MEDS: STERILE WATER FOR INJECTION 10 ML IV (21:53)
[2025-02-23] MEDS: ROCEPHIN 1000 MG IV (21:53)
[2025-02-23] MEDS: LANTUS 0.24 UNITS SC (21:53)
--- NOTE | 2025-02-23 23:45 | W.PN.UPDATE ---
Update Note
Progress Note Update
USS with possible acute cholecystitis. Keep NPO . Surgery eval. Add Zosyn. Hold Novolog. IA Ceftriaxone.
[2025-02-24] VITALS (29 sets, daily range): BP systolic 80–158; BP diastolic 39–101; BMI 28.1
[2025-02-24] MEDS: ZOSYN 50 IV ×5 (00:20→23:17)
[2025-02-24] MEDS: DILAUDID 0.25 MG IV ×3 (04:42→17:56)
[2025-02-24 05:02] LABS: Hematocrit 25.7 % (39.0-52.0); Hemoglobin 8.4 g/dL (13.0-18.0); Mean Corp Hgb Conc. 32.7 g/dL (33.0-37.0); Mean Corpuscular Volume 90.8 fL (80.0-94.0); Platelet Count 396 10^3/uL (130-400); Red Cell Dist. Width 15.4 % (11.5-14.5)
[2025-02-24 05:05] LABS: APTT 78.5 Sec (23.4-35.0)
[2025-02-24 05:21] LABS: ALT (SGPT) 13 U/L (0-50); AST (SGOT) 18 U/L (17-59); Albumin 3.0 g/dl (3.5-5.0); Alkaline Phosphatase 143 U/L (38-126); Blood Urea Nitrogen 21 mg/dl (9-20); Calcium 9.5 mg/dl (8.4-10.2); Carbon Dioxide 27 mmol/L (22-30); Chloride 105 mmol/L (98-107); Estimated Creatinine Clearance 38 ml/min; Glucose 169 mg/dl (70-99); Magnesium 1.5 mg/dl (1.6-2.3); Potassium 4.5 mmol/L (3.5-5.1); Sodium 138 mmol/L (135-145); Total Protein 6.4 g/dl (6.3-8.2); eGFR 43.83
[2025-02-24 05:51] LABS: Nucleated Red Blood Cells % 0 % (-)
[2025-02-24 05:56] LABS: Glucose - Point of Care 165 mg/dl (70-99)
[2025-02-24] MEDS: NOVOLOG FLEXPEN-LOW RESISTANCE 300 UNITS SC (06:10)
--- NOTE | 2025-02-24 07:24 | PTCARENOTE ---
Pt incontinent of urine at times. Hygiene care performed. Heparin gtt maintained, see worklist. PRN pain medication administered with relief. Care ongoing.
[2025-02-24] MEDS: NSS (PRESERVATIVE FREE) 10 ML IV ×2 (09:14→21:23)
[2025-02-24] MEDS: TYLENOL 975 MG PO ×2 (09:14→17:40)
[2025-02-24] MEDS: PROTONIX IV 40 MG IV ×2 (09:14→21:23)
[2025-02-24] MEDS: CARAFATE SUSPENSION PO ×5 (09:15→21:39)
[2025-02-24] MEDS: LOPRESSOR 25 MG PO (09:15)
[2025-02-24] MEDS: DESENEX/MITRAZOL/ZEASORB 1 APPLIC TOPICAL ×2 (09:15→21:21)
[2025-02-24] MEDS: LIDOCAINE 4% PATCH TOPICAL (09:15)
--- NOTE | 2025-02-24 09:58 | CON.GS ---
Consultation
-
Date/Time Consultation Performed: 02/24/25929
Medical History
-
Chief Complaint: abdominal pain
History of Present Illness:
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
osteomyelitis on bone pathology. He was initiated on dialysis early in his course of stay due to acute kidney injury via tunneled catheter placed on 01/31. Arteriogram on 02/01 did demonstrate diminished flow in the left lower extremity and ongoing
discussions have been had regarding revascularization which has been deferred by patient/family given his renal status as he has had some renal recovery He developed nausea with vomiting and NGT was placed on 02/03 for ileus with GI evaluation. He
was placed on heparin gtt early in his admission to replace Xarelto but did develop GIB on 02/07 with eventual endoscopy on 02/13 once able to tolerate which demonstrated esophagitis but no bleeding, a Dobbhoff was placed for tube feedings given
odynophagia with PO intake which has since been removed with oral dietary advancements made. He has had noted rise in WBC counts over the past few days with developed of abdominal pain with nausea and vomiting symptoms. On exam, he is tender to the
RUQ. He offers little history and is ill appearing, the majority of history obtained from medical record and the patient's spouse.
Past Medical History
Past Medical History: Arrhythmias (Afib, CHB s/p PPM), CAD, HTN and NIDDM
Past Surgical History: Cardiac (PPM), Orthopedic (BL knee arthroscopy, lumbar laminectomy, trigger finger release bilateral hands) and Other (spinal stimulator (not MRI compatible))
Social History
Tobacco: Non-Smoker
Alcohol: None
Personal:
Living: With Family
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
Family History
Family History: Reviewed & Not Pertinent
Allergies / Home Medications
Allergy/AdvReac Type Severity Reaction Status Date / Time
No Known Allergies Allergy Verified 09/21/21 09:39
�Medication �Instructions �Recorded �Confirmed �Type
insulin aspart U-100 100 unit/mL 4 - 14 units SC AC Diabetes 09/07/21 01/28/25 History
subcutaneous solution (Novolog
U-100 Insulin aspart)
lovastatin 40 mg tablet 40 mg PO HS High cholesterol 09/07/21 01/28/25 History
hydrochlorothiazide 50 mg tablet 50 mg PO DAILY Blood Pressure 09/21/21 01/28/25 History
lisinopril 20 mg tablet 20 mg PO BID Blood pressure 09/21/21 01/28/25 History
metformin 1,000 mg tablet 1,000 mg PO BID@0800,1700 Diabetes 12/02/21 01/28/25 Rx
##0
Lactobacil.acidophilus-Bifido.animalis 1 cap PO DAILY Gastrointestinal 01/28/25 01/28/25 History
5 billion cell sprinkle capsule Issue
(Probiotic)
hydralazine 25 mg tablet 25 mg PO BID Blood Pressure 01/28/25 01/28/25 History
insulin degludec 100 unit/mL (3 24 unit SC HS Diabetes 01/28/25 01/28/25 History
mL) subcutaneous pen
metoprolol succinate 25 mg 25 mg PO BID Blood Pressure 01/28/25 01/28/25 History
tablet,extended release 24 hr
psyllium 1 packet PO BID Constipation 01/28/25 01/28/25 History
rivaroxaban 20 mg tablet (Xarelto) 20 mg PO QPM Blood clot 01/28/25 01/28/25 History
prevention/tx
Review of Systems
-
History Source: Patient and Family
All other systems: Negative unless noted
A 10 point review of systems was completed, and was negative except as per HPI.
Physical Exam
Vital Signs
Temp Pulse Resp BP Pulse Ox
98.6 F 100 23 158/79 96
02/24/25 08:15 02/24/25 09:15 02/24/25 09:14 02/24/25 09:15 02/24/25 08:00
02/23/25 02/24/25 02/25/25
06:59 06:59 06:59
Actual Weight 86.4 kg 86.2 kg
Body Mass Index (BMI) 28.1
Lab Results
02/24/25 04:40
02/24/25 04:40
WBC 30.0 10^3/uL (4.8-10.8) H 02/24/25 04:40
Hgb 8.4 g/dL (13.0-18.0) L 02/24/25 04:40
Hct 25.7 % (39.0-52.0) L 02/24/25 04:40
Plt Count 396 10^3/uL (130-400) 02/24/25 04:40
Abs Immat Gran (auto) 0.4 10^3/uL (0-0.05) H 02/24/25 04:40
Neutrophils % 89.0 % (42.2-75.2) H 02/24/25 04:40
Physical Exam
General: Well Developed and Well Nourished
HEENT: Moist Mucous Membranes
Respiratory: Non Labored Respirations
GI: Soft and Non Tender
Musculoskeletal: Other (dressing to left foot intact)
Skin: Warm
Neuro: Awake, Alert and AO x 3
Psych: Calm
Assessment / Plan
-
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
osteomyelitis on bone pathology. He was initiated on dialysis early in his course of stay due to acute kidney injury via tunneled catheter placed on 01/31. Arteriogram on 02/01 did demonstrate diminished flow in the left lower extremity and ongoing
discussions have been had regarding revascularization which has been deferred by patient/family given his renal status as he has had some renal recovery He developed nausea with vomiting and NGT was placed on 02/03 for ileus with GI evaluation. He
was placed on heparin gtt early in his admission to replace Xarelto but did develop GIB on 02/07 with eventual endoscopy on 02/13 once able to tolerate which demonstrated esophagitis but no bleeding, a Dobbhoff was placed for tube feedings given
odynophagia with PO intake which has since been removed with oral dietary advancements made.
Surgery consulted in evaluation of new leukocytosis and RUQ pain with n/v over the past 2 days. WBC today of 30.0 (21.5, 5.3). Cr slowly improving between HD sessions. Bilirubin and transaminases are normal. Febrile last night with tmax of 100.9,
VSS although mild intermittent tachycardia is present.
CT on 02/01 with cholelithiasis and hepatic steatosis noted without evidence of pericholecystic inflammation/edema. US imaging from last night again demonstrates gallstones with mild wall thickening. There was a positive sonographic cotton's sign. On
exam, he is focally tender to the RUQ.
Plan:
Keep NPO
Check HIDA scan
ID following with us
Hold Heparin as intervention may be warranted
Pending HIDA findings may need percutaneous cholecystostomy drain.
High risk for surgery at this time: ACS risk calculator utilized with elevated risks noted for serious complications (38.5%) any complication (19.1%) and (9.1%)
--- NOTE | 2025-02-24 09:58 | W.PN.HOSP.TC ---
Today's Communication/Plan
-
Consults IR for biliary drain
Assessment / Plan
Assessment / Plan
Sepsis without septic shock
Acute cholecystitis
-With fever and leukocytosis on 02/23
-Appreciate general surgery input, recommend IR consult for biliary drain since patient is high risk for surgical intervention
-Sahrasyn added, trend fever, trend white count
Aspiration pneumonitis/acute hypoxic respiratory failure - triggered by vomiting, possibly triggered by ileus. Oxygenation improved, now on room air.
Acute TME - due to sepsis, shock, critical illness. Mental status much improved and now at baseline.
Septic shock - due to to left fifth metatarsal abscess, acute osteomyelitis. Sepsis and shock resolved.
Chronic left lower extremity weakness due to back injury during procedure 2019
-IV daptomycin per ID. Goal is 6 weeks of antibiotics.
-Shock resolved. Off vasopressors. Blood cultures negative so far. Wound culture shows MRSA.
-Leukocytosis improved overall. Afebrile.
-Unable to have MRI due to spinal stimulator not active
-Wound culture grew MRSA
-Patient underwent left partial fifth ray amputation 02/03. Podiatry following. Path report from 02/04 shows focal acute osteomyelitis, clean margin from left foot fifth ray.
Nonblanching skin lesions -unclear if vasculitis, possibly due to vancomycin. Not truly palpable purpura. Now off vancomycin and on daptomycin per ID.
PAD
-Per patient's , the PAD in his left leg is a lot more severe than his right leg
-CT angiogram done 02/01 shows multifocal atherosclerotic disease throughout the bilateral lower extremities. Diminished flow in the left anterior tibial artery with some apparent distal reconstitution, diminished flow at the distal aspect of the
left peroneal artery at the level of the ankle. Short segment high-grade stenosis of the distal right SFA.
-Vascular surgery has been having ongoing discussions with family regarding goals of care and decision for left lower extremity revascularization with potential risk for further renal deterioration.
Patient prefers to hold off on lower extremity revascularization and risk of contrast exposure on kidney function. Wants to pursue in the future if needed. I asked vascular surgery, Dr. Gonzalez, to revisit patient and discuss plan of care and to
include patient's .
Lactic acidosis due to sepsis/shock - normalized.
-Differential diagnosis include metformin induced versus worsening sepsis
-Metformin discontinued 02/01
-MAP has been consistently greater than 65
Acute kidney injury
- due to septic shock. Anuric. Gonzalez catheter was placed. Etiology of JESUS most likely due to septic shock and medications and less likely due to contrast-induced nephropathy as contrast exposure was on 02/01, creatinine was 3.3 morning of 02/01.
-Appreciate nephrology input, dialysis started 02/02. Dialysis IJ catheter was placed.
-High anion gap metabolic acidosis due to septic shock, lactic acidosis. Metabolic acidosis resolved. Off sodium bicarbonate IV.
-Hold metformin, lisinopril, hydrochlorothiazide, trend creatinine, no nephrotoxic drugs or NSAIDs
-Hemodialysis as per nephrology
-Holding angiogram until renal recovery can be determined
-Weight seems unreliable
Ileus -resolved. Did have some abdominal pain overnight and was treated with morphine. Obstruction series ordered, report pending. Bowels are moving however.
- developed nausea and vomiting on 02/03. Briefly treated with NG tube.
- Repeat x-ray 02/07 showed air throughout the small bowel, few loops borderline prominent, nonspecific air-fluid levels, most likely ileus. No free air.
- Held narcotics/IV Dilaudid prn (started Tylenol for pain control instead)
- Patient having bowel movements
- Repeat x-ray from 02/12/25 was okay
Odynophagia secondary to Severe Esophagitis found on EGD 02/13/25
Poor PO Intake Secondary to Above
-GI performed EGD on 02/13/25: showed severe esophagitis
Path report shows acute ulcerative esophagitis, immunohistochemical stains negative for HSV 1 and 2, CMV. No fungal organisms identified.
-Continue PPI BID and Carafate
-On discharge cont Protonix PO BID x 4 weeks then daily and carafate AC and HS with wean to BID in 2 weeks then daily x 2 weeks then stop
Acute GI bleed/acute esophagitis -GI bleed resolved. Stools have been brown.
EGD performed 02/13 shows LA grade D reflux esophagitis without bleeding. Normal stomach, normal duodenum. Dobbhoff tube clogged as per nursing. Now that patient tolerating soft diet can DC Dobbhoff tube.
-Acute GI bleed exacerbated by anticoagulation with IV heparin.
-Continue PPI twice daily and Carafate.
Acute blood loss anemia
-Due to GI bleed as above. Hemoglobin down to 7.8, now uptrending. Admission hemoglobin was 11.6. May have baseline chronic anemia of unclear etiology.
Suspect component of anemia related to critical illness as well as renal failure.
Hypokalemia -replete as needed
Mild Hematuria -- RESOLVED
- Noted on 02/12/25, later resolved while on Heparin Drip
- Monitor for now
LUE edema
LUE pain from needlesticks
- Doppler ultrasound negative for DVT.
- Ordered scheduled Tylenol 1000 mg Q8H (which is helping)
Acute on chronic heart failure with preserved ejection fraction
- Cardiology saw patient this hospitalization, continue dialysis as per nephrology
- Dr. Munoz is his director of public relations
Troponin elevation
- Suspect acute nonischemic myocardial injury due to septic shock. Troponins trended down.
Permanent atrial fibrillation -
-Continue Heparin Drip. Was on Xarelto prior to admission -- plan to transition back to oral anticoagulation once no further procedures planned
-Outpatient Toprol XL added back on 02/12/25
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
Known moderate nonobstructive coronary disease in 2021
-Continue statin
2 consecutive episodes of VT overnight 02/10/25 to 02/11/25
-Cardiology following
-Outpatient Toprol XL added back on 02/12/25 -- changed to Lopressor on 02/13/25 given that Toprol cannot be given by tube feeds
-Monitor in IMU
Hyponatremia
- Resolved.
Hyperphosphatemia
- due to JESUS. Improving. Repeat phosphorus normal.
DM 2 with hyperglycemia -glucoses have improved overnight, 124 this morning, 161 last night.
-At home he was on insulin degludec 24 units at bedtime, NovoLog sliding scale with meals, metformin.
-Hemoglobin A1c 7.1 on 01/13/2025
-Hold metformin 1000 mg daily due to JESUS and lactic acidosis earlier this hospitalization
Continue Lantus to 24 units at bedtime, decrease aspart to 8 units AC
-Dr. Pathak is his staff physical therapist
Essential hypertension
- Continue antihypertensives
Hyperlipidemia
- Was on lovastatin prior to admission -- continue this or equivalent statin for it's cardioprotective effects and hyperlipidemia history
Chronic back pain
-Patient sees a pain management provider outpatient
Obesity due to excess calories
DVT Prophylaxis: SCDs. Heparin Drip.
Code Status: Full code
Dispo -SNF when medically stable. Still waiting for vascular surgery to meet with patient and family
Updated family at bedside 02/24
Total time spent to see the patient on the floor, examine the patient, review data and lab results, discuss treatment plan with patient, nursing staff around 51 minutes.
Physical Exam
General: Appears to not feel well, no acute distress
HEENT: Normocephalic, Atraumatic, EOMI, MMM
Respiratory: Clear to Auscultation bilaterally
Cardiac: Normal S1/S2, Regular Rate and Rhythm
GI: Soft, tender at the right upper quadrant, Nondistended, Normal Bowel Sounds
Extremities: No Clubbing, Cyanosis
Left foot dressed
Neuro: Nonfocal/Grossly Intact
Anticipated Discharge: > 48 hours
Subjective/Interval History
-
Date of Service: February 24, 2025
Patient continues to have right upper quadrant abdominal pain, currently 8.5 out of 10 in intensity. His left foot pain is 5 out of 10 in intensity. No nausea, no vomiting. He has continued to have bowel movements, nonbloody. Patient had fever
last night, temperature 100.9.
Objective Data
-
Labs:
Laboratory Results
02/24/25
04:40
WBC 30.0 H
Hgb 8.4 L
Hct 25.7 L
Plt Count 396
APTT 78.5 H
Sodium 138
Potassium 4.5
Chloride 105
Carbon Dioxide 27
BUN 21 H
Creatinine 1.6 H
Glucose 169 H
Calcium 9.5
Total Bilirubin 1.0
AST 18
ALT 13
Alkaline Phosphatase 143 H
Vital Signs:
Vital Signs
Temp Pulse Resp BP Pulse Ox
98.6 F 100 23 158/79 96
02/24/25 08:15 02/24/25 09:15 02/24/25 09:14 02/24/25 09:15 02/24/25 08:00
I&O
02/23/25 02/24/25 02/25/25
06:59 06:59 06:59
Intake Total 770 / 770
Output Total 1075 / 1075 100 / 100 200 / 200
Balance -305 / -305 -100 / -100 -200 / -200
--- NOTE | 2025-02-24 10:55 | W.PN.NEPH.PH ---
Today's Communication / Plan
-
IVF
Assessment/Plan
-
IMP:
TME
Septic shock
Lactic acidosis
Sepsis 2/2 to Diabetic left foot cellulitis w/ lymphangitis
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
Acute kidney injury-baseline cr 0.9-1.1
Peripheral artery disease
hyponatremia
IDDM 2
Essential hypertension
Constipation
A-fib�permanent
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
HLD
Obesity due to excess calories
cholecystitis
Plan:
no HD needed today
light IVF as poor PO intake
follow BMP
await surgical plan (HIDA)
d/w daughter
-
-
Date of Service: February 24, 2025
CC / HPI / ROS
-
Chief Complaint:
JESUS
History of Present Illness:
Urine output improved
JESUS/HD tolerated HD wednesday 02/21
BP stable
Cr 1.6 still
Review of Systems:
noniloguric
no cp or sob noted
no fever
RUQ discomfort
Labs
-
Labs:
WBC 30.0 10^3/uL (4.8-10.8) H 02/24/25 04:40
RBC 2.83 10^6/uL (4.70-6.10) L 02/24/25 04:40
Hgb 8.4 g/dL (13.0-18.0) L 02/24/25 04:40
Hct 25.7 % (39.0-52.0) L 02/24/25 04:40
Plt Count 396 10^3/uL (130-400) 02/24/25 04:40
Sodium 138 mmol/L (135-145) 02/24/25 04:40
Potassium 4.5 mmol/L (3.5-5.1) 02/24/25 04:40
Chloride 105 mmol/L (98-107) 02/24/25 04:40
Carbon Dioxide 27 mmol/L (22-30) 02/24/25 04:40
BUN 21 mg/dl (9-20) H 02/24/25 04:40
Creatinine 1.6 mg/dL (0.7-1.3) H 02/24/25 04:40
eGFR 43.83 02/24/25 04:40
Glucose 169 mg/dl (70-99) H 02/24/25 04:40
Calcium 9.5 mg/dl (8.4-10.2) 02/24/25 04:40
Phosphorus 2.7 mg/dl (2.5-4.5) 02/16/25 05:33
Tcq-V-Iweuczxeyso Pept > 73661 pg/ml 02/01/25 20:16
Albumin 3.0 g/dl (3.5-5.0) L 02/24/25 04:40
Physical Exam
-
Vital Signs:
Vital Signs
Temp Pulse Resp BP Pulse Ox
98.6 F 96 20 117/56 96
02/24/25 08:15 02/24/25 10:00 02/24/25 10:00 02/24/25 10:00 02/24/25 08:00
Cardiovascular:: Regular rate and rhythm
Respiratory:: Bilateral: Coarse
Lung Excursion:: Normal
Abdomen:: Nontender and Soft
Bowel Sounds:: Normal
Extremity Edema:: None: Bilateral:
[2025-02-24] MEDS: NOVOLOG FLEXPEN-LOW RESISTANCE 1 UNITS SC ×2 (11:29→17:41)
[2025-02-24 11:40] LABS: Glucose - Point of Care 186 mg/dl (70-99)
--- NOTE | 2025-02-24 11:59 | W.PN.ID1 ---
Date of Service
Date of Service: February 24, 2025
Today's Communication
Zosyn, DAPTO>
Assessment / Plan
# Acute cholecystitis
# Fever
# Acute leukocytosis - trended up
- Abd US: GB stones and sludge
- Bili, AST, ALT normal.
- For HIDA scan and probable perc giacomo
-Agree with Zosyn (d1)
- Trend wbc/temps
# Vasculitic lesions, resolving
. Non-palpable purpura -> less likely leukocytoclastic vasculitis
. dc'd Vancomycin 02/20
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
# PAD, left 5th ischemic toe
. s/p CT angiogram
. Holding on vascular intervention at this time due to JESUS, per pt preference.
# JESUS
. HD started 02/02. DC'd 02/24
. Renal function recovering.
# s/p Severe esophagitis
.02/14 s/p EGD
. Biopsy: acute ulcerated esophagitis. Negative HSV, CMV, fungal stains.
# DM2 with neuropathy
- Wound cx MRSA
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
OR cx's : MRSA
Bone path proximal margin + osteomyelitis.
- 02/20 Vancomycin dc'd due to skin lesions
- Continue Daptomycin IV through 03/16/25 ( 6 weeks abx) from ray amp.
Adjust Daptomycin dose to 800mg IV q48h. .
- Ongoing difficult shared decision making with Vascular, Gymnastic Coach regarding PAD intervention in setting of JESUS.
Discussed poor wound healing potential, suboptimal antibiotic level at site of osteo, and ischemia may progress if no vascular intervention.
Understandably, pt prefers to hold off on vascular intervention at this time since renal is recovering
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
Diabetes mellitus type 2
Hypertension
Atrial fibrillation on Xarelto
pacemaker placement
Chronic pain with spinal stimulator, not active; stimulator incompatible with MRI
Chronic left leg weakness due to history of back injury during lumbar procedure 2019
Lumbar laminectomy
Chief Complaint
-: Other (osteo of left fifth metatarsal)
Subjective / Review of Systems
Events noted. Pt now with acute cholecystitis. +RUQ pain.
Vital Signs / Physical Exam
Vital Signs
Vital Signs
Temp Pulse Resp BP Pulse Ox
98.0 F 96 20 117/56 96
02/24/25 11:38 02/24/25 10:00 02/24/25 10:00 02/24/25 10:00 02/24/25 08:00
Selected Entries
02/23/25
22:58
Temp 100.9 F H
Physical Exam
Constitutional: No Acute Distress
Eyes: No Conjunctival Hemorrhage and Sclera Anicteric
Cardiovascular: Irregular Rate and S1/S2
Pulmonary: Coarse (bases)
Gastrointestinal: Soft, Tender (RUQ) and Non Distended
Genito-Urinary: Negative Gonzalez or CVA Tenderness
Extremities: Negative Edema
Skin: Rash (purpuric lesions on BUE and right ankle resolving)
Neurological: AO x 3
Lines: HD Cath (no erythema)
Objective Data
Lab Data
Lab Results
02/24/25 04:40
02/24/25 04:40
ESR 78 mm/hour (0-20) H 01/28/25 12:23
PT 14.8 Sec (11.4-14.6) H 02/20/25 12:25
INR 1.11 02/20/25 12:25
APTT 78.5 Sec (23.4-35.0) H 02/24/25 04:40
Estimated Creat Clear 38 ml/min 02/24/25 04:40
Lactic Acid 1.3 mmol/L (0.7-2.0) 02/23/25 09:29
Total Bilirubin 1.0 mg/dl (0.2-1.3) 02/24/25 04:40
AST 18 U/L (17-59) 02/24/25 04:40
ALT 13 U/L (0-50) 02/24/25 04:40
Alkaline Phosphatase 143 U/L (38-126) H 02/24/25 04:40
C-Reactive Protein 228.10 mg/L (0.0-10.00) H 01/28/25 12:23
Most recent labs reviewed.
Micro Results:
02/03/25 21:30 Wound Culture - Final
Foot - Left Staph aureus MRSA
Gram Stain - Final
02/03/25 21:30 Anaerobic Culture - Final
Foot - Left NO ANAEROBES ISOLATED
02/03/25 21:30 Tissue Culture - Final
Foot - Left Staph aureus MRSA
Gram Stain - Final
02/02/25 13:44 Urine Culture - Final
Urine NO GROWTH
01/29/25 04:07 Blood Culture - Final
Blood/Venous No Growth - Final Report
01/28/25 12:24 Blood Culture - Final
Blood/Venous No Growth - Final Report
01/31/25 09:04 Wound Culture - Final
Foot - Left Staph aureus MRSA
Gram Stain - Final
02/01/25 19:47 Influenza Types A & B (GIFTY) - Final
Nasal Swab Negative for Influenza A & B, NAAT
Negative results must be combined with clinical observations
and patient history.
Nucleic Acid Amplification test (NAAT)performed on the
[employer] platform.
01/30/25 10:04 Wound Culture - Final
Foot - Left Staph aureus MRSA
Gram Stain - Final
01/28/25 17:44 MRSA Screen - Final
Nose No Methicillin Resistant Staphylococcus aureus isolated.
Imaging:
01/28/25 Left foot XRAY: No acute osseous abnormality. Mild soft tissue swelling along the lateral forefoot.
02/01/25 CXR: Hazy increased density over the left lower hemithorax, probably mainly due to a posteriorly layering pleural effusion.
02/03/25 CXR: Parenchymal opacity within the right lower lung and the left mid to lower lung, similar to recent radiograph. Main differential considerations of atelectasis and/or pneumonia.
02/04/25 CT LE: 1. Interval amputation of the phalanges of the left 5th toe and the 5th metatarsal head since the prior exam performed 02/01/2025.
2. Large soft tissue wound distal to the 5th metatarsal with soft tissue emphysema extending deep to the lateral cortex of the 4th metatarsal head.
3. Moderate subcutaneous edema throughout the left lower leg and thigh.
4. Moderate to severe calcific atherosclerotic plaque throughout the left lower extremity.
5. Small to moderate-sized left knee joint effusion.
6. Severe anasarca in the left lateral abdominal wall.
7. Moderate retroperitoneal and extraperitoneal edema in the pelvis.
8. Severe diffuse urinary bladder wall thickening with adjacent perivesical inflammation suggesting ACUTE CYSTITIS. Chronic urinary bladder outlet obstruction is also likely present given severe enlargement of the prostate gland.
9. Mild circumferential wall thickening and fluid distention of the rectum suggesting an acute prostatitis. Rectal tube in place.
02/07/25 CXR/AXR: Extremely low lung volumes. Some bibasilar opacification which could represent atelectasis and/or pneumonia and small bilateral pleural effusions, left possibly greater than right. Air seen throughout small bowel, few loops
borderline prominent, nonspecific air-fluid levels, most likely representing ileus. No free air.
02/23/25 Abd US: Gallstones and sludge present with a positive sonographic Edwards's sign and mild wall thickening. Findings likely represent acute cholecystitis. There is no evidence of biliary duct dilation. The common bile duct measures 6 mm.
[2025-02-24] MEDS: D5/0.9% SODIUM CHLORIDE 1000 IV (12:20)
--- NOTE | 2025-02-24 15:07 | PTCARENOTE ---
called by nuclear medicine to give Morphine 2mg IV during HIDA scan per protocol. order and allergies reviewed, vitals stable. Pt identified and Morphine given at 1458.
--- NOTE | 2025-02-24 16:24 | PTCARENOTE ---
Patient directly to IR for drain placement from hida scan. Dr. Juarez at bedside to discuss with patient's . walked to IR to sign consent for procedure.
[2025-02-24] MEDS: CUBICIN 16 MG IV (17:39)
[2025-02-24 17:52] LABS: Glucose - Point of Care 175 mg/dl (70-99)
--- NOTE | 2025-02-24 18:01 | PTCARENOTE ---
Patient arrived back to IMU from IR post procedure. Patient in 04/11 generalized pain. Barcode for IV dilaudid would not scan, but was able to scan patient prior to administration. Scant amount of dark red drainage in cholecystostomy bag. Per
[place], hold heparin gtt until tomorrow. at bedside. Care ongoing.
--- NOTE | 2025-02-24 18:08 | PTCARENOTE ---
Patient AOx3. Flat and withdrawn. Restless at times when pain is increased. PRN pain medications provided per MAR. On RA with SpO2 greater than 92%. A fib on he monitor. BP stable. Generalized edema. R midline. IVF running per order. Family updated
on plan of care. Call cervantes within reach, bed in lowest position, and bed of wheels locked.
[2025-02-24] MEDS: TYLENOL PO ×2 (21:22→21:40)
[2025-02-24] MEDS: REMOVE LIDOCAINE PATCH REMOVE (21:35)
[2025-02-24 21:36] LABS: Glucose - Point of Care 208 mg/dl (70-99)
[2025-02-24] MEDS: LOPRESSOR PO (21:36)
--- NOTE | 2025-02-24 22:13 | W.PN.UPDATE ---
Update Note
Progress Note Update
BS 208 and patient is not eating at present. will give 12 units of Lantus at present.
BP soft BP 80's/48 83/49 HR 80's� 500 CC bolus given without much improvement�
Patient seen and evaluated. Arousable to name and goes back to sleep.
Will start Levophed infusion to keep SBP>90, stable lab results.
Patient is more arousable in the morning
[2025-02-24] MEDS: LANTUS SC (22:14)
[2025-02-24] MEDS: NSS 500 IV (22:40)
[2025-02-24] MEDS: LANTUS 0.12 UNITS SC (22:40)
[2025-02-24 23:06] LABS: Hematocrit 23.8 % (39.0-52.0); Hemoglobin 7.7 g/dL (13.0-18.0); Mean Corp Hgb Conc. 32.4 g/dL (33.0-37.0); Mean Corpuscular Volume 89.1 fL (80.0-94.0); Platelet Count 332 10^3/uL (130-400); Red Cell Dist. Width 15.5 % (11.5-14.5)
[2025-02-24 23:26] LABS: Blood Urea Nitrogen 26 mg/dl (9-20); Calcium 8.8 mg/dl (8.4-10.2); Carbon Dioxide 24 mmol/L (22-30); Chloride 105 mmol/L (98-107); Estimated Creatinine Clearance 36 ml/min; Glucose 206 mg/dl (70-99); Potassium 4.3 mmol/L (3.5-5.1); Sodium 136 mmol/L (135-145); eGFR 40.75
--- NOTE | 2025-02-24 23:37 | PTCARENOTE ---
Pt BP hypotensive, HR in the 70's. Pt drowsy, easily arousable and quick to go back to sleep. Pt had had Dilaudid earlier on day shift. Night SEALER SANDER made aware of low BP's. Pt not willing/ able to take po medication at this time. 500ml NS bolus and labs
ordered. Pt biliary drain intact small amount of sanguineous fluid in bag. Heparin gtt remains on hold until tomorrow per day RN note from
[2025-02-25] VITALS (56 sets, daily range): BP systolic 80–139; BP diastolic 44–72; PULSE 95; BMI 28.2
[2025-02-25] MEDS: LEVOPHED IV (01:42)
[2025-02-25] MEDS: LEVOPHED 250 IV (02:01)
--- NOTE | 2025-02-25 02:11 | PTCARENOTE ---
Pt BP's remain soft. Pt drowsy, easily arousable to voice shaking head yes or no to question but quickly falling back to sleep. LITHARGE SUPERVISOR at bed side. Levo order placed and started at 2 mcg/min with positive results.
[2025-02-25 05:13] LABS: Hematocrit 26.1 % (39.0-52.0); Hemoglobin 8.1 g/dL (13.0-18.0); Mean Corp Hgb Conc. 31.0 g/dL (33.0-37.0); Mean Corpuscular Volume 90.0 fL (80.0-94.0); Platelet Count 399 10^3/uL (130-400); Red Cell Dist. Width 15.4 % (11.5-14.5)
[2025-02-25 05:14] LABS: APTT 32.9 Sec (23.4-35.0)
[2025-02-25] MEDS: ZOSYN 50 IV ×3 (05:25→18:42)
[2025-02-25 05:33] LABS: Blood Urea Nitrogen 25 mg/dl (9-20); Calcium 8.5 mg/dl (8.4-10.2); Carbon Dioxide 25 mmol/L (22-30); Chloride 107 mmol/L (98-107); Estimated Creatinine Clearance 34 ml/min; Glucose 220 mg/dl (70-99); Potassium 4.0 mmol/L (3.5-5.1); Sodium 140 mmol/L (135-145); eGFR 38.05
[2025-02-25 08:05] LABS: Glucose - Point of Care 248 mg/dl (70-99)
[2025-02-25] MEDS: CARAFATE SUSPENSION 1 GM PO ×2 (08:45→21:38)
[2025-02-25] MEDS: TYLENOL 975 MG PO ×2 (08:45→18:42)
[2025-02-25] MEDS: PROTONIX IV 40 MG IV ×2 (08:46→21:35)
[2025-02-25] MEDS: DESENEX/MITRAZOL/ZEASORB 1 APPLIC TOPICAL ×2 (08:46→21:34)
[2025-02-25] MEDS: NSS (PRESERVATIVE FREE) 10 ML IV ×2 (08:46→21:35)
[2025-02-25] MEDS: NOVOLOG FLEXPEN-LOW RESISTANCE 300 UNITS SC (08:48)
[2025-02-25] MEDS: LIDOCAINE 4% PATCH TOPICAL (08:51)
--- NOTE | 2025-02-25 09:13 | W.PN.HOSP.TC ---
Today's Communication/Plan
-
see bold
Assessment / Plan
Assessment / Plan
Sepsis without septic shock
Acute cholecystitis
-With fever and leukocytosis on 02/23
-Appreciate general surgery input, recommend biliary drain since patient is high risk for surgical intervention
-Status post percutaneous cholecystostomy tube 02/24 with IR
-Continue Zosyn D2, trend fever, trend white count
-Needs outpatient follow-up with Dr. Bernabe Juarez
-Lactic acid normal, continue Levophed for MAP greater than 65, wean as tolerated
Aspiration pneumonitis/acute hypoxic respiratory failure - triggered by vomiting, possibly triggered by ileus. Oxygenation improved, now on room air.
Acute TME - due to sepsis, shock, critical illness. Mental status much improved and now at baseline.
Septic shock - due to to left fifth metatarsal abscess, acute osteomyelitis. Sepsis and shock resolved.
Chronic left lower extremity weakness due to back injury during procedure 2019
- Appreciate ID input, continue IV daptomycin through 03/16/2025 for 6 weeks
-Shock resolved. Off vasopressors. Blood cultures negative so far. Wound culture shows MRSA.
-Leukocytosis improved overall. Afebrile.
-Unable to have MRI due to spinal stimulator not active
-Wound culture grew MRSA
-Patient underwent left partial fifth ray amputation 02/03. Podiatry following. Path report from 02/04 shows focal acute osteomyelitis, clean margin from left foot fifth ray.
Nonblanching skin lesions -unclear if vasculitis, possibly due to vancomycin. Not truly palpable purpura. Now off vancomycin and on daptomycin per ID.
PAD
-Per patient's , the PAD in his left leg is a lot more severe than his right leg
-CT angiogram done 02/01 shows multifocal atherosclerotic disease throughout the bilateral lower extremities. Diminished flow in the left anterior tibial artery with some apparent distal reconstitution, diminished flow at the distal aspect of the
left peroneal artery at the level of the ankle. Short segment high-grade stenosis of the distal right SFA.
-Vascular surgery has been having ongoing discussions with family regarding goals of care and decision for left lower extremity revascularization with potential risk for further renal deterioration.
Patient prefers to hold off on lower extremity revascularization and risk of contrast exposure on kidney function. Wants to pursue in the future if needed. Follow-up with Dr. Gonzalez and vascular surgery outpatient
Lactic acidosis due to sepsis/shock - normalized.
-Differential diagnosis include metformin induced versus worsening sepsis
-Metformin discontinued 02/01
-MAP has been consistently greater than 65
Acute kidney injury
- due to septic shock. Anuric. Gonzalez catheter was placed. Etiology of JESUS most likely due to septic shock and medications and less likely due to contrast-induced nephropathy as contrast exposure was on 02/01, creatinine was 3.3 morning of 02/01.
-Appreciate nephrology input, dialysis started 02/02. Dialysis IJ catheter was placed.
-High anion gap metabolic acidosis due to septic shock, lactic acidosis. Metabolic acidosis resolved. Off sodium bicarbonate IV.
-Hold metformin, lisinopril, hydrochlorothiazide, trend creatinine, no nephrotoxic drugs or NSAIDs
-Last dialyzed 02/22. Patient currently having renal recovery, nephrology to monitor and determine any further needs for dialysis
-Holding angiogram until renal recovery can be determined
-Weight seems unreliable
Ileus -resolved. Did have some abdominal pain overnight and was treated with morphine. Obstruction series ordered, report pending. Bowels are moving however.
- developed nausea and vomiting on 02/03. Briefly treated with NG tube.
- Repeat x-ray 02/07 showed air throughout the small bowel, few loops borderline prominent, nonspecific air-fluid levels, most likely ileus. No free air.
- Held narcotics/IV Dilaudid prn (started Tylenol for pain control instead)
- Patient having bowel movements
- Repeat x-ray from 02/12/25 was okay
Odynophagia secondary to Severe Esophagitis found on EGD 02/13/25
Poor PO Intake Secondary to Above
-GI performed EGD on 02/13/25: showed severe esophagitis
Path report shows acute ulcerative esophagitis, immunohistochemical stains negative for HSV 1 and 2, CMV. No fungal organisms identified.
-Continue PPI BID and Carafate
-On discharge cont Protonix PO BID x 4 weeks then daily and carafate AC and HS with wean to BID in 2 weeks then daily x 2 weeks then stop
Acute GI bleed/acute esophagitis -GI bleed resolved. Stools have been brown.
EGD performed 02/13 shows LA grade D reflux esophagitis without bleeding. Normal stomach, normal duodenum. Dobbhoff tube clogged as per nursing. Now that patient tolerating soft diet can DC Dobbhoff tube.
-Acute GI bleed exacerbated by anticoagulation with IV heparin.
-Continue PPI twice daily and Carafate.
Acute blood loss anemia
-Due to GI bleed as above. Hemoglobin down to 7.8, now uptrending. Admission hemoglobin was 11.6. May have baseline chronic anemia of unclear etiology.
Suspect component of anemia related to critical illness as well as renal failure.
Hypokalemia -replete as needed
Mild Hematuria -- RESOLVED
- Noted on 02/12/25, later resolved while on Heparin Drip
- Monitor for now
LUE edema
LUE pain from needlesticks
- Doppler ultrasound negative for DVT.
- Ordered scheduled Tylenol 1000 mg Q8H (which is helping)
Acute on chronic heart failure with preserved ejection fraction
- Cardiology saw patient this hospitalization, continue dialysis as per nephrology
- Dr. Munoz is his branch officer
Troponin elevation
- Suspect acute nonischemic myocardial injury due to septic shock. Troponins trended down.
Permanent atrial fibrillation -
-Continue Heparin Drip. Was on Xarelto prior to admission -- plan to transition back to oral anticoagulation once no further procedures planned
-Outpatient Toprol XL added back on 02/12/25
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
Known moderate nonobstructive coronary disease in 2021
-Continue statin
2 consecutive episodes of VT overnight 02/10/25 to 02/11/25
-Seen by cardiology this admission
-Holding metoprolol due to hypotension
Hyponatremia
- Resolved.
Hyperphosphatemia
- due to JESUS. Improving. Repeat phosphorus normal.
DM 2 with hyperglycemia -glucoses have improved overnight, 124 this morning, 161 last night.
-At home he was on insulin degludec 24 units at bedtime, NovoLog sliding scale with meals, metformin.
-Hemoglobin A1c 7.1 on 01/13/2025
-Hold metformin 1000 mg daily due to JESUS and lactic acidosis earlier this hospitalization
Continue Lantus to 24 units at bedtime, decrease aspart to 8 units AC
-Dr. Pathak is his fishing floats assembler
Hyperlipidemia
- Resume statin
Chronic back pain
-Patient sees a pain management provider outpatient
Obesity due to excess calories
DVT Prophylaxis: SCDs. Heparin Drip.
Code Status: Full code
Dispo -SNF when medically stable. Still waiting for vascular surgery to meet with patient and family
Updated family at bedside 02/24
Total time spent to see the patient on the floor, examine the patient, review data and lab results, discuss treatment plan with patient, nursing staff around 53 minutes.
Physical Exam
General: Appears to not feel well, no acute distress
HEENT: Normocephalic, Atraumatic, EOMI, MMM
Respiratory: Clear to Auscultation bilaterally
Cardiac: Normal S1/S2, Regular Rate and Rhythm
GI: Soft, tender at the right upper quadrant, Nondistended, Normal Bowel Sounds
Biliary drain in place
Extremities: No Clubbing, Cyanosis
Left foot dressed
Neuro: Nonfocal/Grossly Intact
Anticipated Discharge: > 48 hours
Subjective/Interval History
-
Date of Service: February 25, 2025
Patient reports feeling tired, he does not have a appetite. Denies abdominal pain. His left foot pain is well-controlled. Fever resolved. No vomiting.
Objective Data
-
Labs:
Laboratory Results
02/24/25 02/25/25
22:57 04:48
WBC 25.9 H 27.9 H
Hgb 7.7 L 8.1 L
Hct 23.8 L 26.1 L
Plt Count 332 399 D
APTT 32.9
Sodium 136 140
Potassium 4.3 4.0
Chloride 105 107
Carbon Dioxide 24 25
BUN 26 H 25 H
Creatinine 1.7 H 1.8 H
Glucose 206 H 220 H
Calcium 8.8 8.5
Vital Signs:
Vital Signs
Temp Pulse Resp BP Pulse Ox
97.8 F 96 16 112/63 93
02/25/25 08:12 02/25/25 07:00 02/25/25 07:00 02/25/25 07:00 02/24/25 21:36
I&O
02/24/25 02/25/25 02/26/25
06:59 06:59 06:59
Intake Total 1630 / 1630
Output Total 100 / 100 385 / 385
Balance -100 / -100 1245 / 1245
--- NOTE | 2025-02-25 10:28 | W.PN.GS2 ---
Today's Communication / Plan
-
-- Continue with IR drain, flush daily
-- ID consulted, on Zosyn and Dapto
-- Diet per primary
-- OK for anticoagulation from surgical perspective
-- Will need outpatient follow-up with Dr. Juarez
Assessment / Plan
-
Patient is a 79 yo M p/w LLE diabetic foot wound, found to have RUQ and a US and HIDA scan concerning for acute cholecystitis
S/p IR cholecystostomy tube on 02/24
Denies any worsening abdominal pain. Tube appears to be functioning well with bilious effluent. No further recommendations or plans from a general surgery perspective.
-- Continue with IR drain, flush daily
-- ID consulted, on Zosyn and Dapto
-- Diet per primary
-- OK for anticoagulation from surgical perspective
-- Will need outpatient follow-up with Dr. Juarez
Subjective Data
-
Date of Service: February 25, 2025
Denies any RUQ abdominal discomfort. No nausea or vomiting.
Objective Data
-
Intake and Output
02/24/25 02/25/25 02/26/25
06:59 06:59 06:59
Intake Total 1630 / 1630
Output Total 100 / 100 385 / 385
Balance -100 / -100 1245 / 1245
Intake:
Oral fluids 120 / 120
IV fluids (Total) 1260 / 1260
IV piggybacks 250 / 250
Output:
Drain Output (Total) 85 /
Right Upper Abdomen Biliary
Urine, Voided 100 / 100 300 / 300
Other:
How many times incontinent 1
MODERATE amount urine
How many times incontinent 1
SATURATED amount urine
Vital Signs
Temp Pulse Resp BP Pulse Ox
97.8 F 96 16 112/63 93
02/25/25 08:12 02/25/25 07:00 02/25/25 07:00 02/25/25 07:00 02/24/25 21:36
Lab Results
02/25/25 04:48
02/25/25 04:48
Calcium 8.5 mg/dl (8.4-10.2) 02/25/25 04:48
Phosphorus 2.7 mg/dl (2.5-4.5) 02/16/25 05:33
Magnesium 1.5 mg/dl (1.6-2.3) L 02/24/25 04:40
Total Bilirubin 1.0 mg/dl (0.2-1.3) 02/24/25 04:40
Direct Bilirubin 0.8 mg/dl (0.0-0.4) H 02/04/25 16:14
AST 18 U/L (17-59) 02/24/25 04:40
ALT 13 U/L (0-50) 02/24/25 04:40
Alkaline Phosphatase 143 U/L (38-126) H 02/24/25 04:40
Total Protein 6.4 g/dl (6.3-8.2) 02/24/25 04:40
Albumin 3.0 g/dl (3.5-5.0) L 02/24/25 04:40
Physical Exam
-
Gen: NAD
Abd: soft, mild lower abdominal discomfort, ND, non-peritoneal, IR drain with dark bileous output, no blood
Patient has a parikh catheter: No
Patient has a central line: Yes
--- NOTE | 2025-02-25 10:35 | W.PN.ID1 ---
Date of Service
Date of Service: February 25, 2025
Today's Communication
Continue Vanco/Zosyn
Assessment / Plan
# Acute cholecystitis
# Fever - resolved
# Acute leukocytosis
- 02/24 s/p perc giacomo, cx pending
-Agree with Zosyn (d2) pending cx
- Trend wbc/temps
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
# PAD, left 5th ischemic toe
. s/p CT angiogram
. Holding on vascular intervention at this time due to JESUS, per pt preference.
# JESUS
. HD started 02/02. DC'd 02/24
. Renal function recovering.
# s/p Severe esophagitis
.02/14 s/p EGD
. Biopsy: acute ulcerated esophagitis. Negative HSV, CMV, fungal stains.
# DM2 with neuropathy
- Wound cx MRSA
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
OR cx's : MRSA
Bone path proximal margin + osteomyelitis.
- 02/20 Vancomycin dc'd due to vasculitic skin lesions -> resolving
- Continue Daptomycin IV through 03/16/25 ( 6 weeks abx) from ray amp.
Adjust Daptomycin dose prn for renal function
Follow weekly CK (normal)
- Ongoing difficult shared decision making with Vascular, Antique Refinisher regarding PAD intervention in setting of JESUS.
Discussed poor wound healing potential, suboptimal antibiotic level at site of osteo, and ischemia may progress if no vascular intervention.
Understandably, pt prefers to hold off on vascular intervention at this time since renal is recovering
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
Diabetes mellitus type 2
Hypertension
Atrial fibrillation on Xarelto
pacemaker placement
Chronic pain with spinal stimulator, not active; stimulator incompatible with MRI
Chronic left leg weakness due to history of back injury during lumbar procedure 2019
Lumbar laminectomy
Chief Complaint
-: Other (osteo of left fifth metatarsal)
Subjective / Review of Systems
Slept well last night. No further RUQ pain.
Vital Signs / Physical Exam
Vital Signs
Vital Signs
Temp Pulse Resp BP Pulse Ox
97.8 F 96 16 112/63 93
02/25/25 08:12 02/25/25 07:00 02/25/25 07:00 02/25/25 07:00 02/24/25 21:36
Physical Exam
Constitutional: No Acute Distress and Comfortable
Cardiovascular: Regular Rate and S1/S2
Gastrointestinal: Soft, Non Tender, Non Distended and Other (RUQ perc drain with bile)
Extremities: Negative Edema
Skin: Rash (resolving)
Neurological: AO x 3
Objective Data
Lab Data
Lab Results
02/25/25 04:48
02/25/25 04:48
ESR 78 mm/hour (0-20) H 01/28/25 12:23
PT 14.8 Sec (11.4-14.6) H 02/20/25 12:25
INR 1.11 02/20/25 12:25
APTT 32.9 Sec (23.4-35.0) 02/25/25 04:48
Estimated Creat Clear 34 ml/min 02/25/25 04:48
Lactic Acid 1.3 mmol/L (0.7-2.0) 02/25/25 09:37
Total Bilirubin 1.0 mg/dl (0.2-1.3) 02/24/25 04:40
AST 18 U/L (17-59) 02/24/25 04:40
ALT 13 U/L (0-50) 02/24/25 04:40
Alkaline Phosphatase 143 U/L (38-126) H 02/24/25 04:40
C-Reactive Protein 228.10 mg/L (0.0-10.00) H 01/28/25 12:23
Most recent labs reviewed.
Micro Results:
02/24/25 17:00 Wound Culture - Pending
Gallbladder Gram Stain - Preliminary
02/03/25 21:30 Wound Culture - Final
Foot - Left Staph aureus MRSA
Gram Stain - Final
02/03/25 21:30 Anaerobic Culture - Final
Foot - Left NO ANAEROBES ISOLATED
02/03/25 21:30 Tissue Culture - Final
Foot - Left Staph aureus MRSA
Gram Stain - Final
02/02/25 13:44 Urine Culture - Final
Urine NO GROWTH
01/29/25 04:07 Blood Culture - Final
Blood/Venous No Growth - Final Report
01/28/25 12:24 Blood Culture - Final
Blood/Venous No Growth - Final Report
01/31/25 09:04 Wound Culture - Final
Foot - Left Staph aureus MRSA
Gram Stain - Final
02/01/25 19:47 Influenza Types A & B (GIFTY) - Final
Nasal Swab Negative for Influenza A & B, NAAT
Negative results must be combined with clinical observations
and patient history.
Nucleic Acid Amplification test (NAAT)performed on the
[employer] platform.
01/30/25 10:04 Wound Culture - Final
Foot - Left Staph aureus MRSA
Gram Stain - Final
01/28/25 17:44 MRSA Screen - Final
Nose No Methicillin Resistant Staphylococcus aureus isolated.
Imaging:
01/28/25 Left foot XRAY: No acute osseous abnormality. Mild soft tissue swelling along the lateral forefoot.
02/01/25 CXR: Hazy increased density over the left lower hemithorax, probably mainly due to a posteriorly layering pleural effusion.
02/03/25 CXR: Parenchymal opacity within the right lower lung and the left mid to lower lung, similar to recent radiograph. Main differential considerations of atelectasis and/or pneumonia.
02/04/25 CT LE: 1. Interval amputation of the phalanges of the left 5th toe and the 5th metatarsal head since the prior exam performed 02/01/2025.
2. Large soft tissue wound distal to the 5th metatarsal with soft tissue emphysema extending deep to the lateral cortex of the 4th metatarsal head.
3. Moderate subcutaneous edema throughout the left lower leg and thigh.
4. Moderate to severe calcific atherosclerotic plaque throughout the left lower extremity.
5. Small to moderate-sized left knee joint effusion.
6. Severe anasarca in the left lateral abdominal wall.
7. Moderate retroperitoneal and extraperitoneal edema in the pelvis.
8. Severe diffuse urinary bladder wall thickening with adjacent perivesical inflammation suggesting ACUTE CYSTITIS. Chronic urinary bladder outlet obstruction is also likely present given severe enlargement of the prostate gland.
9. Mild circumferential wall thickening and fluid distention of the rectum suggesting an acute prostatitis. Rectal tube in place.
02/07/25 CXR/AXR: Extremely low lung volumes. Some bibasilar opacification which could represent atelectasis and/or pneumonia and small bilateral pleural effusions, left possibly greater than right. Air seen throughout small bowel, few loops
borderline prominent, nonspecific air-fluid levels, most likely representing ileus. No free air.
02/23/25 Abd US: Gallstones and sludge present with a positive sonographic Edwards's sign and mild wall thickening. Findings likely represent acute cholecystitis. There is no evidence of biliary duct dilation. The common bile duct measures 6 mm.
02/24/25 HIDA: There is no uptake within the gallbladder seen on initial and post morphine images. Findings are consistent with acute cholecystitis.
Care Review
Plan reviewed with: Physician (Dr. Khalif Archer)
--- NOTE | 2025-02-25 10:47 | W.PN.NEPH.PH ---
Today's Communication / Plan
-
Follow BMP
Assessment/Plan
-
IMP:
TME
Septic shock
Lactic acidosis
Sepsis 2/2 to Diabetic left foot cellulitis w/ lymphangitis
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
Acute kidney injury-baseline cr 0.9-1.1
Peripheral artery disease
hyponatremia
IDDM 2
Essential hypertension
Constipation
A-fib�permanent
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
HLD
Obesity due to excess calories
cholecystitis status post cholecystotomy tube
Plan:
no HD needed today but with most recent hypotension he is not out of the pinedo
Maintain IV fluids
Keep mean arterial pressure greater than 65, wean pressors as allowed
follow BMP
d/w son
-
-
Date of Service: February 25, 2025
CC / HPI / ROS
-
Chief Complaint:
JESUS
History of Present Illness:
JESUS/HD tolerated HD wednesday 02/21
Hypotensive overnight requiring pressor
JESUS/Cr up to 1.8
Cholecystotomy tube placed with good drainage 02/24/25
Review of Systems:
Oliguric
no cp or sob noted
no fever
RUQ discomfort
Good appetite
Labs
-
Labs:
WBC 27.9 10^3/uL (4.8-10.8) H 02/25/25 04:48
RBC 2.90 10^6/uL (4.70-6.10) L 02/25/25 04:48
Hgb 8.1 g/dL (13.0-18.0) L 02/25/25 04:48
Hct 26.1 % (39.0-52.0) L 02/25/25 04:48
Plt Count 399 10^3/uL (130-400) D 02/25/25 04:48
Sodium 140 mmol/L (135-145) 02/25/25 04:48
Potassium 4.0 mmol/L (3.5-5.1) 02/25/25 04:48
Chloride 107 mmol/L (98-107) 02/25/25 04:48
Carbon Dioxide 25 mmol/L (22-30) 02/25/25 04:48
BUN 25 mg/dl (9-20) H 02/25/25 04:48
Creatinine 1.8 mg/dL (0.7-1.3) H 02/25/25 04:48
eGFR 38.05 02/25/25 04:48
Glucose 220 mg/dl (70-99) H 02/25/25 04:48
Calcium 8.5 mg/dl (8.4-10.2) 02/25/25 04:48
Phosphorus 2.7 mg/dl (2.5-4.5) 02/16/25 05:33
Hbd-Y-Evtaodgimua Pept > 43521 pg/ml 02/01/25 20:16
Albumin 3.0 g/dl (3.5-5.0) L 02/24/25 04:40
Physical Exam
-
Vital Signs:
Vital Signs
Temp Pulse Resp BP Pulse Ox
97.8 F 96 16 112/63 93
02/25/25 08:12 02/25/25 07:00 02/25/25 07:00 02/25/25 07:00 02/24/25 21:36
Cardiovascular:: Regular rate and rhythm
Respiratory:: Bilateral: CTA
Lung Excursion:: Normal
Abdomen:: Soft and Tender
Bowel Sounds:: Normal
Extremity Edema:: None: Bilateral:
--- NOTE | 2025-02-25 11:07 | W.PN.POD ---
Today's Communication
Today's Communication
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
Assessment / Plan
-
S/P Left partial 5th ray amputation - secondary to Left foot Diabetic foot infection
Sepsis
JESUS
IDDM
neuropathy
PAD
Plan:
The left foot wound was flushed and dressed with silver alginate today. Continue vanco/zosyn per ID. Bone culture of the proximal margin 5th metatarsal was positive for osteomyelitis - This was discussed with his son at bedside. We discussed
plans for ultimate repeat debridement of soft tissue and bone if blood flow is able to be optimized. will follow vascular plans
Subjective
Chief Complaint
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
Subjective
Patient seen at bedside - his is asleep. His son is present.
Objective
Temp Pulse Resp BP Pulse Ox
97.8 F 96 16 112/63 93
02/25/25 08:12 02/25/25 07:00 02/25/25 07:00 02/25/25 07:00 02/24/25 21:36
02/25/25 04:48
02/25/25 04:48
Vital Signs and Lab results were reviewed.
Physical Exam
Physical Exam
Left foot with bandages intact, minimal strikethrough on inner bandages. non-palpable pulses, CFT delayed, Packing in place, wound bed is clean with no purulence expressed and erythema resolved. The periphery of the wound is dark eschar and the
base of the wound is dark and non viable with no bleeding
--- NOTE | 2025-02-25 11:20 | PTOTSP ---
Speech Language Pathology
Pt seen for dysphagia tx. Pt reported poor appetite, but being thirsty. RN and son both reported significant liquid intake without any overt coughing. Pt willing to trial small bite of regular solids. Adequate mastication, bolus formation, and
A-P transit noted with no oral residue. Pt denied any globus sensation or odynophagia. No overt signs of aspiration. Dysphagia appears to have resolved.
Recommend:
(1) Continue regular solids/thin liquids
(2) General aspiration precautions
(3) Trial meds whole with liquids
(4) DIVISION HEAD to follow, likely briefly
[2025-02-25 12:05] LABS: Glucose - Point of Care 252 mg/dl (70-99)
[2025-02-25] MEDS: NOVOLOG FLEXPEN-LOW RESISTANCE 3 UNITS SC (12:29)
[2025-02-25] MEDS: CARAFATE SUSPENSION PO ×2 (12:30→18:43)
[2025-02-25] MEDS: D5/0.9% SODIUM CHLORIDE IV (14:08)
[2025-02-25] MEDS: NSS 1000 IV (14:10)
--- NOTE | 2025-02-25 15:06 | PTCARENOTE ---
Assumed care of patient at beginning of this shift from previous RN with levophed infusing at 1mcg/min. Attempted to wean off but BP dropped 80s/40s; restarted at 1mcg/min and BPs 105/54, 118/63. Patient ok to restart heparin infusion as per
surgery; order entered by Dr Archer. VAT RN contacted to start another IV as patient only has 1 lumen midline. Per VAT RN, they were unsuccessful placing PICC last week. [facility] consulted for central line; spoke with [facility] RN who stated patient will be
going this afternoon. Dr Archer aware patient not receiving heparin infusion at currently time. Patient also ordered magnesium IV; time changed by Dr Archer for this evening. Patient worked with PT, refused to get OOB but did sit on side of bed. He has a
very poor appetite today. See worklist for full assessment and vital signs. Son at bedside and updated.
--- NOTE | 2025-02-25 17:19 | PTCARENOTE ---
Addendum entered by Paula Moreno RN 02/25/25 17:20:
IVF sent with patient and running. Levophed attached but on standby in case needed in [facility]. Reviewed with Lauren VILLA and told her if new IV access obtained patient will need new tubing if IVF and/or Levophed restarted.
Original Note:
Patient in [facility].
[2025-02-25] MEDS: HEPARIN 25000 UNITS/250 ML IV (18:27)
[2025-02-25] MEDS: MAGNESIUM SULFATE 100 IV (18:42)
[2025-02-25] MEDS: LIPITOR 10 MG PO (18:43)
[2025-02-25 18:44] LABS: Glucose - Point of Care 172 mg/dl (70-99)
[2025-02-25] MEDS: NOVOLOG FLEXPEN-LOW RESISTANCE 1 UNITS SC (18:48)
[2025-02-25] MEDS: REMOVE LIDOCAINE PATCH REMOVE (21:37)
[2025-02-25] MEDS: LANTUS 0.24 UNITS SC (21:38)
[2025-02-25] MEDS: TYLENOL PO (21:39)
[2025-02-25 21:49] LABS: Glucose - Point of Care 210 mg/dl (70-99)
[2025-02-26] VITALS (19 sets, daily range): BP systolic 102–151; BP diastolic 48–82; BMI 28.9
[2025-02-26] MEDS: ZOSYN 50 IV ×5 (00:29→23:15)
[2025-02-26 01:03] LABS: APTT 66.3 Sec (23.4-35.0)
[2025-02-26 04:38] LABS: Hematocrit 20.6 % (39.0-52.0); Hemoglobin 6.7 g/dL (13.0-18.0); Mean Corp Hgb Conc. 32.5 g/dL (33.0-37.0); Mean Corpuscular Volume 91.2 fL (80.0-94.0); Platelet Count 350 10^3/uL (130-400); Red Cell Dist. Width 15.1 % (11.5-14.5)
--- NOTE | 2025-02-26 04:49 | W.PN.UPDATE ---
Update Note
Progress Note Update
hgb level this am 6.7, repeated to confirm is 6.5. Vital signs within baseline and no sign of bleeding.
-Will continue monitoring h&h q 6 hrs, type & screen, and one unit of blood ordered.
[2025-02-26 04:56] LABS: Blood Urea Nitrogen 29 mg/dl (9-20); Calcium 7.9 mg/dl (8.4-10.2); Carbon Dioxide 26 mmol/L (22-30); Chloride 105 mmol/L (98-107); Estimated Creatinine Clearance 34 ml/min; Glucose 116 mg/dl (70-99); Magnesium 1.5 mg/dl (1.6-2.3); Potassium 3.7 mmol/L (3.5-5.1); Sodium 136 mmol/L (135-145); eGFR 38.05
[2025-02-26 05:24] LABS: Hematocrit 20.2 % (39.0-52.0); Hemoglobin 6.5 g/dL (13.0-18.0)
--- NOTE | 2025-02-26 05:28 | PTCARENOTE ---
Morning labs showing Pt H&H dropping, night SCIENTIST/ENGINEER made aware. Redraw of labs showing same drop in H&H. Type and cross ordered, blood consent reviewed in chart. SCIENTIST/ENGINEER will place order for PRBC. Pt vitals stable at this time bp 111/59 HR 80. Pt has no
complaints of pain, with or without palpation. Pt not presenting with any active signs of bleeding at this time. Heparin gtt to be continued per SCIENTIST/ENGINEER. Next PTT due at 0715.
[2025-02-26] MEDS: HEPARIN 25000 UNITS/250 ML IV ×2 (05:54→23:11)
[2025-02-26 07:11] LABS: APTT 85.4 Sec (23.4-35.0)
[2025-02-26 08:31] LABS: Glucose - Point of Care 114 mg/dl (70-99)
[2025-02-26] MEDS: LIDOCAINE 4% PATCH TOPICAL (08:41)
[2025-02-26] MEDS: CARAFATE SUSPENSION PO ×2 (08:41→12:37)
[2025-02-26] MEDS: NOVOLOG FLEXPEN-LOW RESISTANCE SC ×3 (08:41→17:02)
[2025-02-26] MEDS: NSS (PRESERVATIVE FREE) 10 ML IV ×2 (08:42→21:04)
[2025-02-26] MEDS: PROTONIX IV 40 MG IV ×2 (08:42→21:04)
[2025-02-26] MEDS: DESENEX/MITRAZOL/ZEASORB 1 APPLIC TOPICAL ×2 (08:42→21:04)
[2025-02-26] MEDS: TYLENOL 975 MG PO ×3 (08:42→21:05)
--- NOTE | 2025-02-26 09:15 | W.PN.HOSP.TC ---
Today's Communication/Plan
-
see bold
Assessment / Plan
Assessment / Plan
Sepsis without septic shock
Acute cholecystitis
-With fever and leukocytosis on 02/23
-Appreciate general surgery input, recommend biliary drain since patient is high risk for surgical intervention
-Status post percutaneous cholecystostomy tube 02/24 with IR
-Continue Zosyn D3, trend fever, trend white count
-Lactic acid normal, off Levophed 02/25
-Needs outpatient follow-up with Dr. Bernabe Juarez
Aspiration pneumonitis/acute hypoxic respiratory failure - triggered by vomiting, possibly triggered by ileus. Oxygenation improved, now on room air.
Acute TME - due to sepsis, shock, critical illness. Mental status much improved and now at baseline.
Septic shock - due to to left fifth metatarsal abscess, acute osteomyelitis. Sepsis and shock resolved.
Chronic left lower extremity weakness due to back injury during procedure 2019
- Appreciate ID input, continue IV daptomycin through 03/16/2025 for 6 weeks
-Shock resolved. Off vasopressors. Blood cultures negative so far. Wound culture shows MRSA.
-Leukocytosis improved overall. Afebrile.
-Unable to have MRI due to spinal stimulator not active
-Wound culture grew MRSA
-Patient underwent left partial fifth ray amputation 02/03. Podiatry following. Path report from 02/04 shows focal acute osteomyelitis, clean margin from left foot fifth ray.
Nonblanching skin lesions -unclear if vasculitis, possibly due to vancomycin. Not truly palpable purpura. Now off vancomycin and on daptomycin per ID.
PAD
-Per patient's , the PAD in his left leg is a lot more severe than his right leg
-CT angiogram done 02/01 shows multifocal atherosclerotic disease throughout the bilateral lower extremities. Diminished flow in the left anterior tibial artery with some apparent distal reconstitution, diminished flow at the distal aspect of the
left peroneal artery at the level of the ankle. Short segment high-grade stenosis of the distal right SFA.
-Vascular surgery has been having ongoing discussions with family regarding goals of care and decision for left lower extremity revascularization with potential risk for further renal deterioration.
Patient prefers to hold off on lower extremity revascularization and risk of contrast exposure on kidney function. Wants to pursue in the future if needed. Follow-up with Dr. Gonzalez and vascular surgery outpatient
Lactic acidosis due to sepsis/shock - normalized.
-Differential diagnosis include metformin induced versus worsening sepsis
-Metformin discontinued 02/01
-MAP has been consistently greater than 65
Acute kidney injury
- due to septic shock. Anuric. Gonzalez catheter was placed. Etiology of JESUS most likely due to septic shock and medications and less likely due to contrast-induced nephropathy as contrast exposure was on 02/01, creatinine was 3.3 morning of 02/01.
-Appreciate nephrology input, dialysis started 02/02. Dialysis IJ catheter was placed.
-High anion gap metabolic acidosis due to septic shock, lactic acidosis. Metabolic acidosis resolved. Off sodium bicarbonate IV.
-Hold metformin, lisinopril, hydrochlorothiazide, trend creatinine, no nephrotoxic drugs or NSAIDs
-Last dialyzed 02/22. Patient currently having renal recovery, nephrology to monitor and determine any further needs for dialysis
-Holding angiogram until renal recovery can be determined
-Weight seems unreliable
Ileus -resolved. Did have some abdominal pain overnight and was treated with morphine. Obstruction series ordered, report pending. Bowels are moving however.
- developed nausea and vomiting on 02/03. Briefly treated with NG tube.
- Repeat x-ray 02/07 showed air throughout the small bowel, few loops borderline prominent, nonspecific air-fluid levels, most likely ileus. No free air.
- Held narcotics/IV Dilaudid prn (started Tylenol for pain control instead)
- Patient having bowel movements
- Repeat x-ray from 02/12/25 was okay
Odynophagia secondary to Severe Esophagitis found on EGD 02/13/25
Poor PO Intake Secondary to Above
-GI performed EGD on 02/13/25: showed severe esophagitis
Path report shows acute ulcerative esophagitis, immunohistochemical stains negative for HSV 1 and 2, CMV. No fungal organisms identified.
-Continue PPI BID and Carafate
-On discharge cont Protonix PO BID x 4 weeks then daily and carafate AC and HS with wean to BID in 2 weeks then daily x 2 weeks then stop
Acute GI bleed/acute esophagitis -GI bleed resolved. Stools have been brown.
EGD performed 02/13 shows LA grade D reflux esophagitis without bleeding. Normal stomach, normal duodenum. Dobbhoff tube clogged as per nursing. Now that patient tolerating soft diet can DC Dobbhoff tube.
-Acute GI bleed exacerbated by anticoagulation with IV heparin.
-Continue PPI twice daily and Carafate.
Acute blood loss anemia mixed with anemia of renal failure and sepsis
-Due to GI bleed as above. Admission hemoglobin was 11.6. May have baseline chronic anemia of unclear etiology.
Suspect component of anemia related to critical illness as well as renal failure.
- 02/26, hemoglobin down to 6.5, CT without contrast negative for intraperitoneal bleed, stools are brown
- Getting 1 unit of packed red blood cells today, okay to continue IV heparin drip and monitor closely
Hypokalemia -replete as needed
Mild Hematuria -- RESOLVED
- Noted on 02/12/25, later resolved while on Heparin Drip
- Monitor for now
LUE edema
LUE pain from needlesticks
- Doppler ultrasound negative for DVT.
- Ordered scheduled Tylenol 1000 mg Q8H (which is helping)
Acute on chronic heart failure with preserved ejection fraction
- Cardiology saw patient this hospitalization, continue dialysis as per nephrology
- Dr. Munoz is his hand stripper
Troponin elevation
- Suspect acute nonischemic myocardial injury due to septic shock. Troponins trended down.
Permanent atrial fibrillation -
-Continue Heparin Drip. Was on Xarelto prior to admission -- plan to transition back to oral anticoagulation once no further procedures planned
-Outpatient Toprol XL added back on 02/12/25
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
Known moderate nonobstructive coronary disease in 2021
-Continue statin
2 consecutive episodes of VT overnight 02/10/25 to 02/11/25
-Seen by cardiology this admission
- Resume Toprol XL
Hyponatremia
- Resolved.
Hypomagnesemia
- Replete as needed
Hyperphosphatemia
- due to JESUS. Improving. Repeat phosphorus normal.
DM 2 with hyperglycemia -glucoses have improved overnight, 124 this morning, 161 last night.
-At home he was on insulin degludec 24 units at bedtime, NovoLog sliding scale with meals, metformin.
-Hemoglobin A1c 7.1 on 01/13/2025
-Hold metformin 1000 mg daily due to JESUS and lactic acidosis earlier this hospitalization
-Dr. Pathak is his bag valver
-Adjust insulin as needed based on patient's oral intake, currently receiving Lantus 24 units at bedtime, sliding scale insulin
Hyperlipidemia
- Resumed statin
Chronic back pain
-Patient sees a pain management provider outpatient
Obesity due to excess calories
DVT Prophylaxis: SCDs. Heparin Drip.
Code Status: Full code
Dispo -SNF when medically stable. Still waiting for vascular surgery to meet with patient and family
Updated on phone 02/26
Total time spent to see the patient on the floor, examine the patient, review data and lab results, discuss treatment plan with patient, nursing staff around 52 minutes.
Physical Exam
General: Appears to not feel well, no acute distress
HEENT: Normocephalic, Atraumatic, EOMI, MMM
Respiratory: Clear to Auscultation bilaterally
Cardiac: Normal S1/S2, Regular Rate and Rhythm
GI: Soft, tender at the right upper quadrant, Nondistended, Normal Bowel Sounds
Biliary drain in place
Extremities: No Clubbing, Cyanosis
Left foot dressed
Neuro: Nonfocal/Grossly Intact
Anticipated Discharge: > 48 hours
Subjective/Interval History
-
Date of Service: February 26, 2025
Patient reports feeling tired. No black or bloody stools. Denies abdominal pain. Denies left foot pain. No fever, no vomiting.
Objective Data
-
Labs:
Laboratory Results
02/26/25 02/26/25 02/26/25
00:35 03:52 05:05
WBC 14.8 H
Hgb 6.7 L* 6.5 L*
Hct 20.6 L* 20.2 L*
Plt Count 350
APTT 66.3 H
Sodium 136
Potassium 3.7
Chloride 105
Carbon Dioxide 26
BUN 29 H
Creatinine 1.8 H
Glucose 116 H
Calcium 7.9 L
02/26/25 02/26/25 02/26/25
06:42 11:30 12:40
WBC
Hgb Pending
Hct Pending
Plt Count
APTT 85.4 H Pending
Sodium
Potassium
Chloride
Carbon Dioxide
BUN
Creatinine
Glucose
Calcium
02/26/25
17:30
WBC
Hgb Pending
Hct Pending
Plt Count
APTT
Sodium
Potassium
Chloride
Carbon Dioxide
BUN
Creatinine
Glucose
Calcium
Vital Signs:
Vital Signs
Temp Pulse Resp BP Pulse Ox
98.0 F 76 16 117/67 94
02/26/25 06:55 02/26/25 06:55 02/26/25 06:55 02/26/25 06:55 02/26/25 06:55
I&O
02/25/25 02/26/25 02/27/25
06:59 06:59 06:59
Intake Total 1630 / 1630 1042 / 1042
Output Total 385 / 385 300 / 300
Balance 1245 / 1245 742 / 742
[2025-02-26] MEDS: MAGNESIUM SULFATE 50 IV (09:27)
--- NOTE | 2025-02-26 10:03 | W.PN.ID1 ---
Date of Service
Date of Service: February 26, 2025
Today's Communication
Continue dapto/zosyn
Assessment / Plan
# Acute cholecystitis
# Fever - resolved
# Acute leukocytosis, trending down
- 02/24 s/p perc giacomo, cx pending
-Continue Zosyn (d3) pending cx
If cx remain neg, will transition to Augmentin
- Trend wbc
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
# PAD, left 5th ischemic toe
. s/p CT angiogram
. Holding on vascular intervention at this time due to JESUS, per pt preference.
# JESUS
. HD started 02/02. DC'd 02/24
. Renal function recovering.
# s/p Severe esophagitis
.02/14 s/p EGD
. Biopsy: acute ulcerated esophagitis. Negative HSV, CMV, fungal stains.
# DM2 with neuropathy
- Wound cx MRSA
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
OR cx's : MRSA
Bone path proximal margin + osteomyelitis.
- 02/20 Vancomycin dc'd due to vasculitic skin lesions -> resolving
- Continue Daptomycin IV through 03/16/25 ( 6 weeks abx) from ray amp.
Adjust Daptomycin dose prn for renal function
Follow weekly CK (normal)
- Ongoing difficult shared decision making with Vascular, Learning And Development Director regarding PAD intervention in setting of JESUS.
Discussed poor wound healing potential, suboptimal antibiotic level at site of osteo, and ischemia may progress if no vascular intervention.
Understandably, pt prefers to hold off on vascular intervention at this time since renal is recovering
# Conditions [employer]
Diabetes mellitus type 2
Hypertension
Atrial fibrillation on Xarelto
pacemaker placement
Chronic pain with spinal stimulator, not active; stimulator incompatible with MRI
Chronic left leg weakness due to history of back injury during lumbar procedure 2019
Lumbar laminectomy
Chief Complaint
-: Other (osteo of left fifth metatarsal)
Subjective / Review of Systems
No hematuria, no blood in stool.
Vital Signs / Physical Exam
Vital Signs
Vital Signs
Temp Pulse Resp BP Pulse Ox
97.9 F 81 16 132/75 94
02/26/25 09:22 02/26/25 09:22 02/26/25 09:22 02/26/25 09:22 02/26/25 06:55
Physical Exam
Constitutional: No Acute Distress and Comfortable
Cardiovascular: Regular Rate and S1/S2
Gastrointestinal: Soft, Non Tender, Non Distended and Other (RUQ perc drain with bile)
Extremities: Negative Edema
Skin: Rash (BUE, Right ankle resolving)
Neurological: AO x 3
Lines: PICC (RUE)
Objective Data
Lab Data
Lab Results
02/26/25 03:52
ESR 78 mm/hour (0-20) H 01/28/25 12:23
PT 14.8 Sec (11.4-14.6) H 02/20/25 12:25
INR 1.11 02/20/25 12:25
APTT 85.4 Sec (23.4-35.0) H 02/26/25 06:42
Estimated Creat Clear 34 ml/min 02/26/25 03:52
Lactic Acid 1.3 mmol/L (0.7-2.0) 02/25/25 09:37
Total Bilirubin 1.0 mg/dl (0.2-1.3) 02/24/25 04:40
AST 18 U/L (17-59) 02/24/25 04:40
ALT 13 U/L (0-50) 02/24/25 04:40
Alkaline Phosphatase 143 U/L (38-126) H 02/24/25 04:40
C-Reactive Protein 228.10 mg/L (0.0-10.00) H 01/28/25 12:23
Most recent labs reviewed.
Micro Results:
02/24/25 17:00 Wound Culture - Preliminary
Gallbladder No growth
Gram Stain - Preliminary
02/03/25 21:30 Wound Culture - Final
Foot - Left Staph aureus MRSA
Gram Stain - Final
02/03/25 21:30 Anaerobic Culture - Final
Foot - Left NO ANAEROBES ISOLATED
02/03/25 21:30 Tissue Culture - Final
Foot - Left Staph aureus MRSA
Gram Stain - Final
02/02/25 13:44 Urine Culture - Final
Urine NO GROWTH
01/29/25 04:07 Blood Culture - Final
Blood/Venous No Growth - Final Report
01/28/25 12:24 Blood Culture - Final
Blood/Venous No Growth - Final Report
01/31/25 09:04 Wound Culture - Final
Foot - Left Staph aureus MRSA
Gram Stain - Final
02/01/25 19:47 Influenza Types A & B (GIFTY) - Final
Nasal Swab Negative for Influenza A & B, NAAT
Negative results must be combined with clinical observations
and patient history.
Nucleic Acid Amplification test (NAAT)performed on the
[employer] platform.
01/30/25 10:04 Wound Culture - Final
Foot - Left Staph aureus MRSA
Gram Stain - Final
01/28/25 17:44 MRSA Screen - Final
Nose No Methicillin Resistant Staphylococcus aureus isolated.
Imaging:
01/28/25 Left foot XRAY: No acute osseous abnormality. Mild soft tissue swelling along the lateral forefoot.
02/01/25 CXR: Hazy increased density over the left lower hemithorax, probably mainly due to a posteriorly layering pleural effusion.
02/03/25 CXR: Parenchymal opacity within the right lower lung and the left mid to lower lung, similar to recent radiograph. Main differential considerations of atelectasis and/or pneumonia.
02/04/25 CT LE: 1. Interval amputation of the phalanges of the left 5th toe and the 5th metatarsal head since the prior exam performed 02/01/2025.
2. Large soft tissue wound distal to the 5th metatarsal with soft tissue emphysema extending deep to the lateral cortex of the 4th metatarsal head.
3. Moderate subcutaneous edema throughout the left lower leg and thigh.
4. Moderate to severe calcific atherosclerotic plaque throughout the left lower extremity.
5. Small to moderate-sized left knee joint effusion.
6. Severe anasarca in the left lateral abdominal wall.
7. Moderate retroperitoneal and extraperitoneal edema in the pelvis.
8. Severe diffuse urinary bladder wall thickening with adjacent perivesical inflammation suggesting ACUTE CYSTITIS. Chronic urinary bladder outlet obstruction is also likely present given severe enlargement of the prostate gland.
9. Mild circumferential wall thickening and fluid distention of the rectum suggesting an acute prostatitis. Rectal tube in place.
02/07/25 CXR/AXR: Extremely low lung volumes. Some bibasilar opacification which could represent atelectasis and/or pneumonia and small bilateral pleural effusions, left possibly greater than right. Air seen throughout small bowel, few loops
borderline prominent, nonspecific air-fluid levels, most likely representing ileus. No free air.
02/23/25 Abd US: Gallstones and sludge present with a positive sonographic Edwards's sign and mild wall thickening. Findings likely represent acute cholecystitis. There is no evidence of biliary duct dilation. The common bile duct measures 6 mm.
02/24/25 HIDA: There is no uptake within the gallbladder seen on initial and post morphine images. Findings are consistent with acute cholecystitis.
Care Review
Plan reviewed with: Physician (Dr. Khalif Archer)
--- NOTE | 2025-02-26 10:26 | CON.MR ---
Documented by User: Honag Salazar MD, Resident 02/28/25 13:28
Consultation
Consultation Request
Date/Time Consultation Requested: 02/26/25
Date/Time Consultation Performed: 02/28/25
Requesting Provider: Tree Cerna Do
Performing Provider: Dr. Rico
Reason for Consultation: Debility
Medical History
-
Chief Complaint: Debility, osteomyelitis, diabetic ulcer, left partial fifth metatarsal ampu
History of Present Illness:
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
he expressed pus from the plantar aspect of his fifth metatarsal near a callus then applied triple antibiotic ointment over top of it. He states he started to notice erythema on the dorsal aspect of the fifth metatarsal over the past few weeks
which then progressed to generalized erythema and lymphangitis on the medial aspect of his leg extending to the mid thigh. He states he began ciprofloxacin and then developed rigors in between taking Advil and Tylenol along with dry heaves. Foot
x-ray shows mild soft tissue swelling of the lateral forefoot. Patient was admitted for sepsis secondary to left foot cellulitis with lymphangitis. He was started on IV vancomycin and Zosyn. Podiatry was consulted who conducted a bedside I&D.
Wound culture grew MRSA and patient was transitioned to vancomycin only. During his hospital stay he developed JESUS with creatinine rising to 3.3 from a baseline of 1.0. Patient's condition continued to worsen, with worsening kidney function and
development of lactic acidosis with a lactic acid of 15.1 and pH of 7.15. CT abdomen pelvis was done to find source of infection which showed cystitis and no bowel ischemia. Patient was moved to ICU requiring pressors, started on a bicarb drip, and
received a dialysis catheter and underwent hemodialysis. Given worsening medical condition podiatry recommended with metatarsal amputation once medically stable. Patient also developed chest pain and troponins showed mild elevation, likely demand
ischemia, and a BNP greater than 27,000 cardiology recommended volume management by dialysis, echo showed preserved ejection fraction. Patient was placed on heparin drip, ID added cefepime to cover for suspected pneumonia and continued vancomycin.
On 02/03 patient underwent partial left fifth metatarsal amputation without complications. Postop pathology was positive for osteomyelitis. Postop patient developed ileus requiring NG tube, ileus resolved and NG tube was removed and diet was
advanced as tolerated. However patient had swallowing difficulties requiring that he remained n.p.o., and video study was ordered. Based on study patient was recommended n.p.o. and GI was consulted after blood was seen in stool, likely stress
ulcers/peptic ulcers with history of GERD, and imaging showed air throughout the small bowels dilated loops nonspecific air-fluid levels with no free air, likely ileus. Heparin drip was stopped and GI started him on IV Protonix. After several days
and no increased blood in stool patient was restarted on heparin drip. Dr. Camara conditions continued to improve and he was taken off pressors and there was resolution of metabolic acidosis lactic acidosis and he was downgraded to IMU. However his
renal function remained poor requiring intermittent hemodialysis. Patient started to make small quantities of urine and planned arteriogram was held off to help facilitate improvement in renal function. He completed his cefepime course but still
continued on vancomycin. His GI problems continue to persist with blood in stool, drop in hemoglobin requiring transfusion, and he developed odynophagia GI recommended an upper endoscopy and hold off on colonoscopy. EGD showed severe esophagitis
of the entire esophagus and was biopsied. Patient was given a Dobbhoff tube and tube feeds were started. IV Protonix was changed to Prevacid SoluTab's via tube. Patient's odynophagia improved, Dobbhoff tube was removed and diet was advanced to
soft with thin liquids. 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 On 02/22 patient developed
leukocytosis diffuse abdominal pain, x-ray series was nonconclusive and patient continued to have pain that located to the right upper quadrant. Ultrasound showed cholecystitis with no stones blocking the ducts. Surgery was consulted and patient
was made n.p.o. and Zosyn was added on to his regimen. Surgery department the patient was not a good surgical candidate and recommended IR to place biliary drain. On 02/24 cholecystostomy tube was placed. Patient had hemoglobin drop requiring
transfusion with 1 packed red blood cells. Patient to continue IV daptomycin until 03/16.
Past Medical History
Past Medical History: Arrhythmias (permanent a fib, permanent pacemaker ), HTN, Hypercholesterolemia, IDDM and Other (chronic left leg weakness, )
Past Surgical History: Other ( spinal stimulator not active Permanent pacemaker 2021 Bilateral knee arthroscopy Lumbar laminectomy Lumbar procedure unknown type XX 20 leaving patient with left leg weakness, numbness Trigger finger release bilateral
hands)
Family History
Family History: Reviewed & Not Pertinent
Social History
Functional Level Premorbidity:
Independent for all activities used cane for ambulation
Current Funct Level: Ambulation, Transfer, UE/LE Dressing:
Bed mobility: Supine to sit max assist, sit to supine dependent
Transfer: Max assist
Ambulation: Not assessed for safety reasons
Tobacco: Non-Smoker
Alcohol: None
Drug: None
Personal:
Living: With Family
Is 24 hour care available: Yes
Number of Floors: 2
# Steps to Enter: 1
# Steps to Second Floor: 12
Potential First Floor Set Up: Yes
Driving: Yes
Employment: Employed
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
Allergies / Home Medications
Allergy/AdvReac Type Severity Reaction Status Date / Time
No Known Allergies Allergy Verified 09/21/21 09:39
�Medication �Instructions �Recorded �Confirmed �Last Taken �Type
insulin aspart U-100 100 unit/mL 4 - 14 units SC AC Diabetes 09/07/21 01/28/25 11/30/21 19:00 History
subcutaneous solution (Novolog
U-100 Insulin aspart)
lovastatin 40 mg tablet 40 mg PO HS High cholesterol 09/07/21 01/28/25 11/30/21 22:00 History
hydrochlorothiazide 50 mg tablet 50 mg PO DAILY Blood Pressure 09/21/21 01/28/25 11/30/21 07:00 History
lisinopril 20 mg tablet 20 mg PO BID Blood pressure 09/21/21 01/28/25 12/01/21 08:00 History
metformin 1,000 mg tablet 1,000 mg PO BID@0800,1700 Diabetes 12/02/21 01/28/25 11/30/21 19:00 Rx
##0
Lactobacil.acidophilus-Bifido.animalis 1 cap PO DAILY Gastrointestinal 01/28/25 01/28/25 Unknown History
5 billion cell sprinkle capsule Issue
(Probiotic)
hydralazine 25 mg tablet 25 mg PO BID Blood Pressure 01/28/25 01/28/25 Unknown History
insulin degludec 100 unit/mL (3 24 unit SC HS Diabetes 01/28/25 01/28/25 Unknown History
mL) subcutaneous pen
metoprolol succinate 25 mg 25 mg PO BID Blood Pressure 01/28/25 01/28/25 Unknown History
tablet,extended release 24 hr
psyllium 1 packet PO BID Constipation 01/28/25 01/28/25 Unknown History
rivaroxaban 20 mg tablet (Xarelto) 20 mg PO QPM Blood clot 01/28/25 01/28/25 01/27/25 History
prevention/tx
Review Of Systems
-
History Source: Patient
Constitutional: Reports No Symptoms; Denies Fever or Fatigue
Eye: Reports No Symptoms; Denies Blurry Vision or Tearing
EENT: Reports No Symptoms; Denies Tearing or Sore Throat
Respiratory: Reports No Symptoms; Denies Cough or Trouble Breathing
Cardiac: Reports No Symptoms; Denies Chest Pain or Palpitations
Abdomen/GI: Reports No Symptoms; Denies Abdominal Pain, Nausea or Vomiting
: Reports No Symptoms and Other
Musculoskeletal: Reports No Symptoms; Denies Joint Pain or Muscle Pain
Neurological: Reports Weakness and Numbness (Lower extremities bilaterally)
Physical Exam
Active Medications
Generic Name Dose Route Start Last Admin
Trade Name Freq PRN Reason Stop Dose Admin
Acetaminophen 975 mg 02/18/25 22:00 02/26/25 08:42
Acetaminophen 325 Mg Tablet PO 03/18/25 21:59 975 mg
TID DOMENIC Administration
Atorvastatin Calcium 10 mg 02/19/25 18:00 02/25/25 18:43
Atorvastatin (Lipitor) 10 Mg Tablet PO 03/19/25 17:59 10 mg
QPM DOMENIC Administration
Bisacodyl 10 mg 02/24/25 15:28
Bisacodyl 10 Mg Rectal Suppository RECTAL 03/24/25 15:27
[id number] PRN
constipation
Dextrose 12.5 grams 02/24/25 15:29
Dextrose 50% (0.5 Grams/Ml) 50 Ml Syringe IV 03/24/25 15:28
[id number] PRN
hypoglycemia
Protocol
Glucagon 1 mg 02/24/25 15:29
Glucagon 1 Mg Vial IM 03/24/25 15:28
PRN PRN
hypoglycemia
Protocol
Guaifenesin/Dextromethorphan 10 ml 02/13/25 14:37
Guaifenesin/Dextromethorphan 200 Mg/10 Ml Cup TUBE 03/01/25 19:35
On Hold: 02/13/25 14:38 Q4HPRN PRN
Productive cough
Hydromorphone HCl 0.25 mg 02/23/25 23:52 02/24/25 17:56
Hydromorphone 0.25 Mg/0.5 Ml Syringe IV 03/09/25 23:51 0.25 mg
Q4HPRN PRN Administration
severe pain
Heparin Sodium 25,000 units in 250 mls @ 0 mls/hr 02/09/25 16:00 02/26/25 05:54
Heparin 93029 Units/250 Ml IV 250 mls
PER PROTOCOL DOMENIC Administration
Protocol
Per Protocol
Insulin Glargine 24 units/ 0.24 mls @ 0 mls/hr 02/18/25 22:00 02/25/25 21:38
Device SC 03/18/25 21:59 0.24 mls
HS DOMENIC Administration
As Directed
Piperacillin Sod/Tazobactam Sod 2.25 grams in 50 mls @ 100 mls/hr 02/24/25 06:00 02/26/25 05:01
Zosyn IV 50 mls
Q6H DOMENIC Administration
Daptomycin 800 mg/ Device 16 mls @ 0 mls/hr 02/24/25 14:00 02/24/25 17:39
IV 16 mls
Q48H DOMENIC Administration
Norepinephrine Bitartrate 4 mg in 250 mls @ 0 mls/hr 02/25/25 01:45 02/25/25 02:01
Levophed IV 250 mls
PER PROTOCOL DOMENCI Administration
Protocol
Per Protocol
Sodium Chloride 1,000 mls @ 60 mls/hr 02/25/25 13:45 02/25/25 14:10
Nss IV 1,000 mls
.[id number] DOMENIC Administration
Magnesium Sulfate 2 gram in 50 mls @ 25 mls/hr 02/26/25 09:09 02/26/25 09:27
Magnesium Sulfate IV 02/26/25 11:08 50 mls
NOW STA Administration
Insulin Aspart 8 units 02/20/25 08:45 02/23/25 17:59
Insulin Aspart (Novolog) 100 Units/Ml 3 Ml Flexpen SC 03/20/25 08:44 Not Given
On Hold: 02/23/25 23:55 AC DOMENIC
Insulin Aspart 0 units 02/25/25 16:30 02/26/25 08:41
Insulin Aspart Low Resistance 300 Units/3 Ml Pen.Injctr SC 03/25/25 16:29 Not Given
AC DOMENIC
Protocol
Lidocaine 1 patch 02/04/25 16:00 02/26/25 08:41
Lidocaine 4% Topical Patch TOPICAL 03/04/25 15:59 Not Given
DAILY DOMENIC
Protocol
Metoprolol Tartrate 5 mg 02/02/25 11:31 02/23/25 05:16
Metoprolol 5 Mg/5 Ml Vial IV 03/02/25 11:30 5 mg
Q4HPRN PRN Administration
HR > 120
Metoprolol Tartrate 25 mg 02/18/25 20:00 02/24/25 21:36
Metoprolol 25 Mg Regular Release Tablet PO 03/18/25 19:59 Not Given
On Hold: 02/25/25 05:52 BID DOMENIC
Miconazole Nitrate 0 applic 02/14/25 20:00 02/26/25 08:42
Miconazole Powder Bottle TOPICAL 03/14/25 19:59 1 applic
BID DOMENIC Administration
Ondansetron HCl 4 mg 02/03/25 06:12 02/10/25 13:00
Ondansetron 4 Mg/2 Ml Vial IV 03/03/25 06:11 4 mg
Q6HPRN PRN Administration
NAUSEA/VOMITING
Pantoprazole Sodium 40 mg 02/23/25 20:00 02/26/25 08:42
Pantoprazole Sodium 40 Mg/10 Ml Vial IV 03/23/25 19:59 40 mg
Q12 DOMENIC Administration
Patch Removal 0 patch 02/04/25 22:00 02/25/25 21:37
Remove Lidocaine Patch REMOVE 03/04/25 21:59 Not Given
DAILY@2000 DOMENIC
Phenol 0 spray 02/16/25 20:55
Chloraseptic (1.4% Phenol) Throat [place] PO 03/16/25 20:54
Q2HPRN PRN
throat irritation
Senna/Docusate Sodium 2 tablet 02/13/25 14:34
Docusate W/Senna (Ariadne-Colace) Tablet TUBE 03/01/25 11:04
On Hold: 02/13/25 14:35 BID DOMENIC
Sodium Chloride 0 flush 01/31/25 17:00 02/17/25 13:21
Sodium Chloride 0.9% (Flush) Syringe IV 02/28/25 16:59 1 flush
PER PROTOCOL DOMENIC Administration
Sodium Chloride 2 sprays 02/05/25 20:33 02/09/25 02:34
Sodium Chloride 0.65% Nasal [place] 45 Ml Bottle NASAL 03/05/25 20:32 2 sprays
QIDPRN PRN Administration
dry nose/congestion
Sodium Chloride 10 ml 02/23/25 20:00 02/26/25 08:42
Sodium Chloride 0.9% (Preservative Free) 10 Ml Vial IV 03/23/25 19:59 10 ml
Q12 DOMENIC Administration
Sucralfate 1 gm 02/18/25 22:00 02/26/25 08:41
Sucralfate (Carafate) 1 Gm/10 Ml Cup PO 03/18/25 21:59 Not Given
ACHS DOMENIC
Vital Signs
Temp Pulse Resp BP Pulse Ox
97.9 F 81 16 132/75 94
02/26/25 09:22 02/26/25 09:22 02/26/25 09:22 02/26/25 09:22 02/26/25 06:55
Height 5 ft 9 in
Actual Weight 88.6 kg
Body Mass Index (BMI) 28.9
Physical Exam
Physical Exam:
General Appearance/Observation: Well-developed, well-nourished individual in no apparent distress.
Pain/Comfort Assessment: Denies
Mood/Affect: Appropriate
Integumentary/Operative Site:
Pressure Ulcer: absent
Other Type of Wound: absent
Eyes: Conjunctiva/Lids: normal Pupils: pupils equal round and reactive to light and Accommodation
Ears/Nose/Throat: oral mucosa moist, throat clear. Lips/Teeth/Gums: normal
Neck: No muscle spasm or tenderness
Cardiovascular: Heart: regular rate rhythm, no murmur
Pulses: dorsalis pedis 2+ bilaterally
Respiratory: Respiratory Effort/Chest Expansion: normal Auscultation: Clear to auscultation bilaterally
Gastrointestinal: abdomen mildly tender to palpation RUQ, cholecystostomy tube present, no distension, normal abdominal bowel sounds
Genitourinary: No Gonzalez
Rectal Exam: Deferred
Extremities: Edema: None Cyanosis: None Trophic changes: None
Neurology Exam:
Orientation: Alert, Oriented to self, Time, Place
Memory: Intact immediately and at 3 minutes with prompting
Higher cortical function
Speech: Intact
Repetition: Intact
Comprehension: Intact
Two step command: Intact
Naming: Intact
Cranial Nerves:
CNII: Pupillary light reflex: Intact Visual Field: Intact
CN III, IV, : Extraocular muscles: Intact
CN V: Facial Sensation at Forehead: Intact , Maxilla: Intact, Mandible: Intact
CN VII: Facial movement: Symmetric
CN VIII: Hearing: Normal
CN IX/X: Speech & swallow: Normal, Position of Uvula: Midline
CN XI: Shoulder shrug: Symmetric
CN XII: Tongue protrusion: Midline
Sensory:
Light touch: Reduced in bilateral lower extremities
Pinprick: Deferred
Proprioception: Reduced in bilateral lower extremities
Temperature: Deferred
Reflexes:
Biceps: 0 bilaterally
Brachioradialis: 0 bilaterally
Triceps: 0 bilaterally
Patellar: 0 bilaterally
Achilles: 0 bilaterally
Babinski: Downgoing bilaterally
Clonus: None
Aparna: Negative bilaterally
Cerebellar: Dysmetria/Ataxia: None
Musculoskeletal:
Motor: (Manual muscle scale 0-5)
Muscle SA EF WE EE FF FA HF KE DF EHL PF
Right 4 4 5 4 4 4 3 3 5 5 5
Left 4 4 5 4 4 4 3 3 - - -
Tone: Normal in all extremities
Range of Motion: Passively within normal limits in all extremities
Lab Results
02/26/25 03:52
WBC 14.8 10^3/uL (4.8-10.8) H 02/26/25 03:52
Hgb 6.5 g/dL (13.0-18.0) L* 02/26/25 05:05
Hct 20.2 % (39.0-52.0) L* 02/26/25 05:05
MCV 91.2 fL (80.0-94.0) 02/26/25 03:52
Plt Count 350 10^3/uL (130-400) 02/26/25 03:52
ESR 78 mm/hour (0-20) H 01/28/25 12:23
PT 14.8 Sec (11.4-14.6) H 02/20/25 12:25
INR 1.11 02/20/25 12:25
Sodium 136 mmol/L (135-145) 02/26/25 03:52
Potassium 3.7 mmol/L (3.5-5.1) 02/26/25 03:52
Chloride 105 mmol/L (98-107) 02/26/25 03:52
Carbon Dioxide 26 mmol/L (22-30) 02/26/25 03:52
BUN 29 mg/dl (9-20) H 02/26/25 03:52
Creatinine 1.8 mg/dL (0.7-1.3) H 02/26/25 03:52
eGFR 38.05 02/26/25 03:52
Glucose 116 mg/dl (70-99) H 02/26/25 03:52
Hemoglobin A1c Cancelled 01/28/25 12:23
Calcium 7.9 mg/dl (8.4-10.2) L 02/26/25 03:52
Phosphorus 4.4 mg/dl (2.5-4.5) 02/26/25 03:52
Magnesium 1.5 mg/dl (1.6-2.3) L 02/26/25 03:52
Total Bilirubin 1.0 mg/dl (0.2-1.3) 02/24/25 04:40
Direct Bilirubin 0.8 mg/dl (0.0-0.4) H 02/04/25 16:14
AST 18 U/L (17-59) 02/24/25 04:40
ALT 13 U/L (0-50) 02/24/25 04:40
Alkaline Phosphatase 143 U/L (38-126) H 02/24/25 04:40
C-Reactive Protein 228.10 mg/L (0.0-10.00) H 01/28/25 12:23
Total Protein 6.4 g/dl (6.3-8.2) 02/24/25 04:40
Albumin 3.0 g/dl (3.5-5.0) L 02/24/25 04:40
Diagnostic Results
As per HPI.
Comorbidities / Impairment Group
Comorbidities:
Impairment Group:
Assessment / Plan
Assessment
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
he expressed pus from the plantar aspect of his fifth metatarsal near a callus then applied triple antibiotic ointment over top of it. He was admitted for diabetic foot ulcer and patient had left partial fifth metatarsal amputation. Hospital
course was complicated by acute renal failure, esophagitis, GI bleed, and sepsis secondary to osteomyelitis of the fifth toe. Currently receiving hemodialysis and awaiting arteriogram and vascular intervention for left foot.
Plan
PM&R PT/OT to increase independence with ADLs, improve balance, coordination, endurance, strength, mobility, community reintegration, decreased burden of care on others and family education.
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 Patient at high risk of falling with subsequent significant neuropathy.
Status post bilateral partial fifth left metatarsal amputation: Monitor incision, pain control, incision care per podiatry. Maintain full range of motion, phantom limb education
HTN: continue medications, monitor closely
HLD: Statin
DM II: Accu-Cheks, insulin sliding scale, metformin, lispro, lantus.
Pressure ulcers: Vitamin C, zinc, multivitamin. Weight shifts in wheelchair and bed. Roho cushion. Pressure-relief boots. Lotrimin to fungal rash over buttocks and inguinal region.
Anemia: Likely multifactorial. Continue to monitor.
Skin: monitor for pressure sores/rashes/lesions.
Pain: acetaminophen or oxycodone as needed.
Bowel: As needed Colace and Senna, PRN bisacodyl.
Bladder: Time void, PVRs, PRN straight cath.
GI Prophylaxis: Pantoprazole
DVT Prophylaxis: On heparin drip
Pulmonary: Incentive spirometry
Safety: Continue to reinforce assistance with all transfers.
Code Status: Full code
Dispo: Acute rehab
Functional and Medical Goals: Modified Independent with ADL�s, ambulation, transfers
Summary
-
Things that must be addressed in Hospital prior to discharge:
Patient must be stable on oral pain medications.
Only Pigtail chest tubes are possible.
Blood pressure must be less than 180 systolic and 100 diastolic for 24 hours before being stable for transfer to SNF/acute rehab.
Please give blood pressure parameters.
Please comment on ROM, bracing and weight bearing precautions.
Please comment on dvt chemoprophylaxis restrictions.
Please comment on management of cholecystostomy tube
Discharge Destination: Acute rehab
Summary of recommendations:
- Discharge Destination: Acute rehab
Will sign off, please re-consult if needed.
Thank you for allowing me to care for your patient. Please contact me with any questions or concerns.
Comments
-
This note was dictated using a voice recognition system. Please excuse any typographical errors from linux unix engineer. If you believe there are any discrepancies, please notify our office.

Documented by User: Calvin Rico MD 02/28/25 21:46
Consultation
Consultation Request
Requesting Provider: Dr. Tree Archer
Medical History
-
History of Present Illness:
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
states a few weeks ago from 01/28 he expressed pus from the plantar aspect of his fifth metatarsal near a callus then applied triple antibiotic ointment over top of it. He states he started to notice erythema on the dorsal aspect of the fifth
metatarsal over the past few weeks which then progressed to generalized erythema and lymphangitis on the medial aspect of his leg extending to the mid thigh. He states he began ciprofloxacin and then developed rigors in between taking Advil and
Tylenol along with dry heaves. Foot x-ray shows mild soft tissue swelling of the lateral forefoot.
He was admitted for sepsis secondary to left foot cellulitis with lymphangitis. He was started on IV vancomycin and Zosyn. Podiatry was consulted who conducted a bedside I&D. Wound culture grew MRSA and patient was transitioned to vancomycin
only. During his hospital stay he developed JESUS with creatinine rising to 3.3 from a baseline of 1.0. Patient's condition continued to worsen, with worsening kidney function and development of lactic acidosis with a lactic acid of 15.1 and pH of
7.15. CT abdomen pelvis was done to find source of infection which showed cystitis and no bowel ischemia. Patient was moved to ICU requiring pressors, started on a bicarb drip, and received a dialysis catheter and underwent hemodialysis. Given
worsening medical condition podiatry recommended with metatarsal amputation once medically stable. Patient also developed chest pain and troponins showed mild elevation, likely demand ischemia, and a BNP greater than 27,000 cardiology recommended
volume management by dialysis, echo showed preserved ejection fraction. Patient was placed on heparin drip, ID added cefepime to cover for suspected pneumonia and continued vancomycin.
On 02/03 patient underwent partial left fifth metatarsal amputation without complications. Postop pathology was positive for osteomyelitis. Postop patient developed ileus requiring NG tube, ileus resolved and NG tube was removed and diet was
advanced as tolerated. However patient had swallowing difficulties requiring that he remained n.p.o., and video study was ordered. Based on study patient was recommended n.p.o. and GI was consulted after blood was seen in stool, likely stress
ulcers/peptic ulcers with history of GERD, and imaging showed air throughout the small bowels dilated loops nonspecific air-fluid levels with no free air, likely ileus. Heparin drip was stopped and GI started him on IV Protonix. After several days
and no increased blood in stool patient was restarted on heparin drip. 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
His renal function remained poor requiring intermittent hemodialysis. Patient started to make small quantities of urine and planned arteriogram was held off to help facilitate improvement in renal function. He completed his cefepime course but
still continued on vancomycin. His GI problems continue to persist with blood in stool, drop in hemoglobin requiring transfusion, and he developed odynophagia GI recommended an upper endoscopy and hold off on colonoscopy. EGD showed severe
esophagitis of the entire esophagus and was biopsied. Patient was given a Dobbhoff tube and tube feeds were started. IV Protonix was changed to Prevacid SoluTab's via tube. Patient's odynophagia improved, Dobbhoff tube was removed and diet was
advanced to soft with thin liquids. 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 On 02/22 patient developed
leukocytosis diffuse abdominal pain, x-ray series was nonconclusive and patient continued to have pain that located to the right upper quadrant. Ultrasound showed cholecystitis with no stones blocking the ducts. Surgery was consulted and patient
was made n.p.o. and Zosyn was added on to his regimen. Surgery department the patient was not a good surgical candidate and recommended IR to place biliary drain. On 02/24 cholecystostomy tube was placed. Patient had hemoglobin drop requiring
transfusion with 1 packed red blood cells. Patient to continue IV daptomycin until 03/16.
Overall he is feeling okay. He has mild pain in the left foot. He has an angiogram with Dr. Gonzalez scheduled on Wednesday 03/07 and is planned to have further surgical management of his left foot pending the results of the angiogram. He would
ultimately to get to rehab but would like to find out what is going on with the blood flow to the left leg and then have any surgical procedure that is necessary prior to getting to rehab.
Past Medical History
Past Medical History: CAD, CHF and Other (chronic left leg weakness, obesity)
Social History
Current Funct Level: Ambulation, Transfer, UE/LE Dressing:
Bed mobility: Mod assist
Transfer: Mod assist of 2 people
Ambulation: Ambulated 4 feet with rolling walker min assist of 2 people with forefoot offloading shoe and a left step to pattern.
Review Of Systems
-
Musculoskeletal: Reports Edema (Left arm)
Integumentary: Reports Other
Physical Exam
Physical Exam
Physical Exam:
General Appearance/Observation: Well-developed, well-nourished male in no apparent distress.
Pain/Comfort Assessment: Denies
Mood/Affect: Appropriate
Integumentary/Operative Site: Has hemodialysis catheter right chest, PICC line right arm. Also with cholecystostomy tube with brownish-reddish drainage.
- Left foot with fifth metatarsal amputation wrapped in gauze with dressing clean dry and intact.
Eyes: Conjunctiva/Lids: normal Pupils: pupils equal round and reactive to light and Accommodation
Ears/Nose/Throat: oral mucosa moist, throat clear. Lips/Teeth/Gums: normal
Neck: No muscle spasm or tenderness
Cardiovascular: Heart: regular rate rhythm, no murmur
Pulses: dorsalis pedis 2+ bilaterally
Respiratory: Respiratory Effort/Chest Expansion: normal Auscultation: Clear to auscultation bilaterally
Gastrointestinal: abdomen mildly tender to palpation RUQ, cholecystostomy tube present, no distension, normal abdominal bowel sounds
Genitourinary: No Gonzalez
Rectal Exam: Deferred
Extremities: Edema: Significant left upper extremity edema. Mild bilateral lower extremity edema. Cyanosis: None
Neurology Exam:
Orientation: Alert, Oriented to self, Time, Place
Memory: Intact for recent medical concerns
Comprehension: Intact
Two step command: Intact
Cranial Nerves:
CN VII: Facial movement: Symmetric
CN VIII: Hearing: Normal
CN IX/X: Speech & swallow: Normal
Sensory:
Light touch: Intact in bilateral lower extremities including left toes
Reflexes:
Patellar: 0 bilaterally
Musculoskeletal: Motor: (Manual muscle scale 0-5)
Muscle SA EF WE EE FF FA HF KE DF EHL PF
Right 4 5 4 5 4 2 3+ 5 5
Left 4 5 4 5 4 2+ +3 4 4
Tone: Normal in all extremities
Range of Motion: Passively within functional limits in all extremities
Assessment / Plan
Assessment
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
with left lateral foot cellulitis with lymphangitis and sepsis from MRSA with osteomyelitis s/p 8/4 left partial fifth metatarsal amputation complicated by acute renal failure requiring dialysis, esophagitis, GI bleed, odynophagia, acute on chronic
CHF, cholecystitis s/p 02/24 cholecystostomy tube ----currently awaiting 03/07 arteriogram, possible vascular intervention for left foot, and further surgical intervention for the left foot.
Plan
PM&R PT/OT to increase independence with ADLs, improve balance, coordination, endurance, strength, mobility, community reintegration, decreased burden of care on others and family education.
- Ambulating with a forefoot offloading Darco shoe.
MRSA sepsis with osteomyelitis: daptomycin 6 weeks from right amputation through 03/16/2025
Cholecystitis: Augmentin through 03/27
Status post bilateral partial fifth left metatarsal amputation: Monitor incision, pain control, incision care per podiatry.
HTN: Metoprolol 25 mg p.o. twice daily, monitor
HLD: Statin
A-fib: Xarelto anticoagulation at home. Currently on heparin with metoprolol rate control.
Acute on chronic CHF: Beta-boy, monitor weights
CAD: Metoprolol, statin, on Eliquis at home
PAD: Has left lower extremity angiogram scheduled for 03/07/2025. Was on Eliquis. Statin. Currently on heparin.
DM II with neuropathy: Accu-Cheks, carb controlled diet, Lantus 24 units at night aspart 8 units with meals and insulin sliding scale.
Anemia: Likely multifactorial including surgical and GI bleeding concerns. Continue to monitor.
JESUS status post dialysis: Continue to monitor renal function hopefully will not require further dialysis.
Left upper extremity edema: Patient notes that occurred after vancomycin complication in the arm. Has had Doppler negative x 2. Getting Tylenol 975 mg 3 times daily.
- Would suggest Pierre wrapping and elevating the arm. Could also use consider Tubigrip
Chronic left leg weakness from injury after back procedure in 2020: PT/OT. Pain management. Has spinal stimulator.
Skin: monitor for pressure sores/rashes/lesions. Discussed offloading buttocks area where he had a small bedsore according to family. Wound care signed off.
Pain: acetaminophen 975 mg 3 times daily. Monitor LFTs. Dilaudid IV as needed. Will need to controlled after switch to oral Dilaudid prior to transfer to rehab..
Acute GI bleed: On sucralfate and Protonix 40 mg twice daily after GI bleeding.
Bowel: Having diarrhea after starting Augmentin thought to be secondary to side effect from medication.
Bladder: Time void, PVRs, PRN straight cath.
DVT Prophylaxis: heparin drip
Pulmonary: Incentive spirometry
Safety: Continue to reinforce assistance with all transfers.
Code Status: Full code
Discharge Destination:: Acute rehab after patient has angiogram and renal function is stable and decision for debridement of left foot is completed, anticipate that would be Saturday 03/10 at the earliest. Had extensive discussion with family who is
not interested in going to rehab for a day or 2 prior to having the angiogram.
Functional and Medical Goals: Modified Independent with ADL�s, ambulation, transfers
Attending Statement: I performed a history and examined the patient 02/28/2025.� I agree with the history and ROS above as modified.� The physical exam and plan documented reflects my examination and plan.�A total of 80 minutes were spent with the
patient preparing for the evaluation, obtaining history, performing examination and evaluation, counseling, data review, case management, care coordination, billet recorder, and EMR documentation.��������
� � � � �
Summary
-
Left upper extremity edema: Patient notes that occurred after vancomycin complication in the arm. Has had Doppler negative x 2. Getting Tylenol 975 mg 3 times daily.
- Would suggest Pierre wrapping and elevating the arm. Could also use consider Tubigrip
Skin: monitor for pressure sores/rashes/lesions. Discussed offloading buttocks area where he had a small bedsore according to family. Wound care signed off.
Pain: acetaminophen 975 mg 3 times daily. Monitor LFTs.
- Will need to controlled after switch to oral Dilaudid prior to transfer to rehab..
Please comment on ROM, bracing and weight bearing precautions.
Please comment on management of cholecystostomy tube
Discharge Destination:: Acute rehab after patient has angiogram and renal function is stable and decision for debridement of left foot is completed, anticipate that would be Saturday 03/10 at the earliest. Had extensive discussion with family who is
not interested in going to rehab for a day or 2 prior to having the angiogram.
Will continue to follow peripherally until patient ready for discharge to rehab
Thank you for allowing me to care for your patient. Please contact me with any questions or concerns.
--- NOTE | 2025-02-26 11:01 | W.PN.NEPH.HD ---
Addendum entered and electronically signed by Jorge Hammonds DO 02/26/25 11:05:
Note placed accidentally as patient did not receive dialysis today please refer to progress note
Original Note:
Assessment
-
Tolerating dialysis isovolemic UF
Progress Note - Hemodialysis
-
Date of Service: February 26, 2025
Duration: 30 minutes and 3 hours
Calcium Bath: 2.5
Opti-Dialyzer: 160
Ultrafiltration: Other (3 kg is hemodynamically Toller)
Blood Flow: 400
Dialysate Flow: 600
EPO: 10K
--- NOTE | 2025-02-26 11:02 | W.PN.NEPH.PH ---
Today's Communication / Plan
-
Continue IV fluid
CAT scan without contrast
No acute need for dialysis today reevaluate tomorrow
Assessment/Plan
-
IMP:
TME
Septic shock
Lactic acidosis
Sepsis 2/2 to Diabetic left foot cellulitis w/ lymphangitis
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
Acute kidney injury-baseline cr 0.9-1.1
Peripheral artery disease
hyponatremia
IDDM 2
Essential hypertension
Constipation
A-fib�permanent
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
HLD
Obesity due to excess calories
cholecystitis status post cholecystotomy tube
Plan:
Creatinine stable
Nonoliguric subjective per patient
Hemoglobin dropped pending CAT scan without contrast
Holding dialysis again tomorrow unless other indications to continue will continue maintain a permacath for
d/w son
-
-
Date of Service: February 26, 2025
CC / HPI / ROS
-
Chief Complaint:
JESUS
History of Present Illness:
JESUS/HD tolerated HD wednesday 02/21
Hypotensive overnight requiring pressor
JESUS/Cr up to 1.8
Cholecystotomy tube placed with good drainage 02/24/25
Review of Systems:
Oliguric
no cp or sob noted
no fever
RUQ discomfort
Labs
-
Labs:
WBC 14.8 10^3/uL (4.8-10.8) H 02/26/25 03:52
RBC 2.26 10^6/uL (4.70-6.10) L 02/26/25 03:52
Plt Count 350 10^3/uL (130-400) 02/26/25 03:52
Sodium 136 mmol/L (135-145) 02/26/25 03:52
Potassium 3.7 mmol/L (3.5-5.1) 02/26/25 03:52
Chloride 105 mmol/L (98-107) 02/26/25 03:52
Carbon Dioxide 26 mmol/L (22-30) 02/26/25 03:52
BUN 29 mg/dl (9-20) H 02/26/25 03:52
Creatinine 1.8 mg/dL (0.7-1.3) H 02/26/25 03:52
eGFR 38.05 02/26/25 03:52
Glucose 116 mg/dl (70-99) H 02/26/25 03:52
Calcium 7.9 mg/dl (8.4-10.2) L 02/26/25 03:52
Phosphorus 4.4 mg/dl (2.5-4.5) 02/26/25 03:52
Ucz-C-Wrmknqubnuv Pept > 57341 pg/ml 02/01/25 20:16
Albumin 3.0 g/dl (3.5-5.0) L 02/24/25 04:40
Physical Exam
-
Vital Signs:
Vital Signs
Temp Pulse Resp BP Pulse Ox
97.9 F 81 16 132/75 94
02/26/25 09:22 02/26/25 09:22 02/26/25 09:22 02/26/25 09:22 02/26/25 06:55
Cardiovascular:: Regular rate and rhythm
Respiratory:: Bilateral: CTA
Lung Excursion:: Normal
Abdomen:: Soft and Tender
Bowel Sounds:: Normal
Extremity Edema:: None: Bilateral:
--- NOTE | 2025-02-26 11:08 | W.PN.UPDATE ---
Update Note
Progress Note Update
Correction with dialysis note placed today. Patient did not receive dialysis today note was placed accidentally
[2025-02-26 12:18] LABS: Hematocrit 24.4 % (39.0-52.0); Hemoglobin 7.9 g/dL (13.0-18.0)
--- NOTE | 2025-02-26 12:22 | PTCARENOTE ---
Assumed care of patient at beginning of this shift from previous RN with PRBCs infusing (see previous RN note) as well as heparin at 2300 units/hr. TT sent to Dr Archer and Dr Singh at beginning of this shift; heparin held as per Dr Archer. Patient to CT
scan; results to follow. NSS resumed at 60ml/hr as ordered. Mg administered IV as ordered. Patient refused morning carafate and lidoderm patch. Son in room with patient. Dr Archer in and updated both patient and family. Patient remains Ox3 with very
flat affect and withdrawn; emotional support and encouragement provided. See worklist for full assessment and vital signs.
[2025-02-26 12:26] LABS: APTT 33.2 Sec (23.4-35.0)
[2025-02-26 12:28] LABS: Glucose - Point of Care 112 mg/dl (70-99)
--- NOTE | 2025-02-26 12:39 | PTCARENOTE ---
Repeat H&H 7.924.4. TT sent to Dr Archer with results. Next H&H at 17:30.
[2025-02-26] MEDS: NSS 1000 IV (13:20)
[2025-02-26] MEDS: CUBICIN 16 MG IV (13:50)
--- NOTE | 2025-02-26 14:17 | CM ---
Met with patient and son at bedside. Chart reviewed; PT recommends Acute Rehab when stable for discharge; CM notified Attending to request PM&R consult; referral sent to [facility] via [facility]
--- NOTE | 2025-02-26 15:49 | WOUNDNOTE ---
RIGHT LATERAL ANKLE
--- NOTE | 2025-02-26 15:50 | WOUNDNOTE ---
RIGHT LATERAL ANKLE
--- NOTE | 2025-02-26 15:59 | WOUNDNOTE ---
[facility] RN NOTE: Visited patient to follow up on red ponce noted on right ankle during last assessment and sacrum. The red ponce have resolved and reports that she was told ponce were likely from Vancomycin, which has since been continued. Sacrum
is healed and foam was applied for protection. Patient turned with some assistance. He was repositioned to a semi-side lying position. Fiber filled boots maintained and heels intact. Podiatry continues to follow for left foot wound. Will follow as
needed.
[2025-02-26] MEDS: LIPITOR 10 MG PO (17:02)
[2025-02-26] MEDS: CARAFATE SUSPENSION 1 GM PO ×2 (17:02→21:05)
[2025-02-26 17:12] LABS: Glucose - Point of Care 119 mg/dl (70-99)
[2025-02-26 19:22] LABS: Hematocrit 25.2 % (39.0-52.0); Hemoglobin 8.2 g/dL (13.0-18.0)
[2025-02-26 20:04] LABS: APTT 72.8 Sec (23.4-35.0)
[2025-02-26] MEDS: TOPROL XL 25 MG PO (21:05)
[2025-02-26] MEDS: REMOVE LIDOCAINE PATCH REMOVE (21:06)
[2025-02-26] MEDS: LANTUS 0.24 UNITS SC (21:10)
[2025-02-26 21:17] LABS: Glucose - Point of Care 150 mg/dl (70-99)
[2025-02-27] VITALS (25 sets, daily range): BP systolic 91–166; BP diastolic 47–104; PULSE 73–86; O2SAT 98; BMI 29.5
[2025-02-27 03:53] LABS: Hematocrit 24.1 % (39.0-52.0); Hemoglobin 7.7 g/dL (13.0-18.0); Mean Corp Hgb Conc. 32.0 g/dL (33.0-37.0); Mean Corpuscular Volume 90.3 fL (80.0-94.0); Platelet Count 345 10^3/uL (130-400); Red Cell Dist. Width 14.5 % (11.5-14.5)
[2025-02-27 04:12] LABS: APTT 104.1 Sec (23.4-35.0)
[2025-02-27] MEDS: NSS 1000 IV (04:52)
[2025-02-27 04:53] LABS: Blood Urea Nitrogen 28 mg/dl (9-20); Calcium 8.1 mg/dl (8.4-10.2); Carbon Dioxide 24 mmol/L (22-30); Chloride 108 mmol/L (98-107); Estimated Creatinine Clearance 32 ml/min; Glucose 101 mg/dl (70-99); Magnesium 1.8 mg/dl (1.6-2.3); Potassium 3.6 mmol/L (3.5-5.1); Sodium 138 mmol/L (135-145); eGFR 35.66
[2025-02-27] MEDS: ZOSYN 50 IV ×2 (05:57→12:14)
[2025-02-27 07:52] LABS: Glucose - Point of Care 90 mg/dl (70-99)
[2025-02-27] MEDS: NSS (PRESERVATIVE FREE) 10 ML IV (09:07)
[2025-02-27] MEDS: PROTONIX IV 40 MG IV (09:07)
[2025-02-27] MEDS: TYLENOL PO ×3 (09:08→21:40)
[2025-02-27] MEDS: DESENEX/MITRAZOL/ZEASORB 1 APPLIC TOPICAL ×2 (09:08→19:46)
[2025-02-27] MEDS: CARAFATE SUSPENSION 1 GM PO ×4 (09:09→21:38)
[2025-02-27] MEDS: TOPROL XL 25 MG PO ×2 (09:09→19:46)
[2025-02-27] MEDS: LIDOCAINE 4% PATCH TOPICAL (09:10)
[2025-02-27] MEDS: NOVOLOG FLEXPEN-LOW RESISTANCE SC ×3 (09:10→17:23)
--- NOTE | 2025-02-27 09:26 | W.PN.HOSP.TC ---
Today's Communication/Plan
-
see bold
Assessment / Plan
Assessment / Plan
Sepsis without septic shock
Acute cholecystitis
-With fever and leukocytosis on 02/23
-Appreciate general surgery input, recommend biliary drain since patient is high risk for surgical intervention
-Status post percutaneous cholecystostomy tube 02/24 with IR, cx neg
-Resolving on IV zosyn, ID changed zosyn to augmentin
-Lactic acid normal, off Levophed 02/25
-Needs outpatient follow-up with Dr. Bernabe Juarez
Aspiration pneumonitis/acute hypoxic respiratory failure - triggered by vomiting, possibly triggered by ileus. Oxygenation improved, now on room air.
Acute TME - due to sepsis, shock, critical illness. Mental status much improved and now at baseline.
Septic shock - due to to left fifth metatarsal abscess, acute osteomyelitis. Sepsis and shock resolved.
Chronic left lower extremity weakness due to back injury during procedure 2019
-Appreciate ID input, continue IV daptomycin through 03/16/2025 for 6 weeks
-Shock resolved. Off vasopressors. Blood cultures negative so far. Wound culture shows MRSA.
-Leukocytosis improved overall. Afebrile.
-Unable to have MRI due to spinal stimulator not active
-Wound culture grew MRSA
-Patient underwent left partial fifth ray amputation 02/03. Podiatry following. Path report from 02/04 shows focal acute osteomyelitis, clean margin from left foot fifth ray.
Nonblanching skin lesions -unclear if vasculitis, possibly due to vancomycin. Not truly palpable purpura. Now off vancomycin and on daptomycin per ID.
PAD
-Per patient's , the PAD in his left leg is a lot more severe than his right leg
-CT angiogram done 02/01 shows multifocal atherosclerotic disease throughout the bilateral lower extremities. Diminished flow in the left anterior tibial artery with some apparent distal reconstitution, diminished flow at the distal aspect of the
left peroneal artery at the level of the ankle. Short segment high-grade stenosis of the distal right SFA.
-Vascular surgery has been having ongoing discussions with family regarding goals of care and decision for left lower extremity revascularization with potential risk for further renal deterioration.
Patient prefers to hold off on lower extremity revascularization and risk of contrast exposure on kidney function. Wants to pursue in the future if needed. Follow-up with Dr. Gonzalez and vascular surgery outpatient
Lactic acidosis due to sepsis/shock - normalized.
-Differential diagnosis include metformin induced versus worsening sepsis
-Metformin discontinued 02/01
-MAP has been consistently greater than 65
Acute kidney injury
- due to septic shock. Anuric. Gonzalez catheter was placed. Etiology of JESUS most likely due to septic shock and medications and less likely due to contrast-induced nephropathy as contrast exposure was on 02/01, creatinine was 3.3 morning of 02/01.
-Appreciate nephrology input, dialysis started 02/02. Dialysis IJ catheter was placed.
-High anion gap metabolic acidosis due to septic shock, lactic acidosis. Metabolic acidosis resolved. Off sodium bicarbonate IV.
-Hold metformin, lisinopril, hydrochlorothiazide, trend creatinine, no nephrotoxic drugs or NSAIDs
-Last dialyzed 02/22. Patient currently having renal recovery, nephrology to monitor and determine any further needs for dialysis
-Holding angiogram until renal recovery can be determined
-Weight seems unreliable
Ileus -resolved. Did have some abdominal pain overnight and was treated with morphine. Obstruction series ordered, report pending. Bowels are moving however.
- developed nausea and vomiting on 02/03. Briefly treated with NG tube.
- Repeat x-ray 02/07 showed air throughout the small bowel, few loops borderline prominent, nonspecific air-fluid levels, most likely ileus. No free air.
- Held narcotics/IV Dilaudid prn (started Tylenol for pain control instead)
- Patient having bowel movements
- Repeat x-ray from 02/12/25 was okay
Odynophagia secondary to Severe Esophagitis found on EGD 02/13/25
Poor PO Intake Secondary to Above
-GI performed EGD on 02/13/25: showed severe esophagitis
Path report shows acute ulcerative esophagitis, immunohistochemical stains negative for HSV 1 and 2, CMV. No fungal organisms identified.
-Continue PPI BID and Carafate
-On discharge cont Protonix PO BID x 4 weeks then daily and carafate AC and HS with wean to BID in 2 weeks then daily x 2 weeks then stop
Acute GI bleed/acute esophagitis -GI bleed resolved. Stools have been brown.
EGD performed 02/13 shows LA grade D reflux esophagitis without bleeding. Normal stomach, normal duodenum. Dobbhoff tube clogged as per nursing. Now that patient tolerating soft diet can DC Dobbhoff tube.
-Acute GI bleed exacerbated by anticoagulation with IV heparin.
-Continue PPI twice daily and Carafate.
Acute blood loss anemia mixed with anemia of renal failure and sepsis
-Due to GI bleed as above. Admission hemoglobin was 11.6. May have baseline chronic anemia of unclear etiology.
Suspect component of anemia related to critical illness as well as renal failure.
- 02/26, hemoglobin down to 6.5, CT without contrast negative for intraperitoneal bleed, stools are brown
- Hemoglobin improved to 7.7 status post 1 unit packed red blood cells 02/26
- Trend Hgb, transfuse for Hgb < 7.0
Hypokalemia -replete as needed
Mild Hematuria -- RESOLVED
- Noted on 02/12/25, later resolved while on Heparin Drip
- Monitor for now
LUE edema
LUE pain from needlesticks
- Doppler ultrasound negative for DVT, will repeat US today 02/27 as edema is worse
- Ordered scheduled Tylenol 1000 mg Q8H (which is helping)
Acute on chronic heart failure with preserved ejection fraction
- Cardiology saw patient this hospitalization, continue dialysis as per nephrology
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
Troponin elevation
- Suspect acute nonischemic myocardial injury due to septic shock. Troponins trended down.
Permanent atrial fibrillation -
-Continue Heparin Drip. Was on Xarelto prior to admission -- plan to transition back to oral anticoagulation once no further procedures planned
-Outpatient Toprol XL added back on 02/12/25
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
Known moderate nonobstructive coronary disease in 2021
-Continue statin
2 consecutive episodes of VT overnight 02/10/25 to 02/11/25
-Seen by cardiology this admission
- Resumed Toprol XL
Hyponatremia
- Resolved.
Hypomagnesemia
- Replete as needed
Hyperphosphatemia
- due to JESUS. Improving. Repeat phosphorus normal.
DM 2 with hyperglycemia -glucoses have improved overnight, 124 this morning, 161 last night.
-At home he was on insulin degludec 24 units at bedtime, NovoLog sliding scale with meals, metformin.
-Hemoglobin A1c 7.1 on 01/13/2025
-Hold metformin 1000 mg daily due to JESUS and lactic acidosis earlier this hospitalization
-Dr. Pathak is his business rules analyst
-Adjust insulin as needed based on patient's oral intake, currently receiving Lantus 24 units at bedtime, sliding scale insulin
Hyperlipidemia
- Resumed statin
Chronic back pain
-Patient sees a pain management provider outpatient
Obesity due to excess calories
DVT Prophylaxis: SCDs. Heparin Drip.
Code Status: Full code
Dispo -SNF vs acute rehab when medically stable.
Updated on phone 02/26
Total time spent to see the patient on the floor, examine the patient, review data and lab results, discuss treatment plan with patient, nursing staff around 51 minutes.
Physical Exam
General: Appears to not feel well, no acute distress
HEENT: Normocephalic, Atraumatic, EOMI, MMM
Respiratory: Clear to Auscultation bilaterally
Cardiac: Normal S1/S2, Regular Rate and Rhythm
GI: Soft, tender at the right upper quadrant, Nondistended, Normal Bowel Sounds
Biliary drain in place
Extremities: No Clubbing, Cyanosis
Left foot dressed
LUE edema noted
Neuro: Nonfocal/Grossly Intact
Anticipated Discharge: 24 - 48 hours
Subjective/Interval History
-
Date of Service: February 27, 2025
Patient reports feeling better. He is less tired. Denies abdominal pain. Denies left foot pain. No fever, no vomiting.
Objective Data
-
Labs:
Laboratory Results
02/27/25 02/27/25
03:36 10:00
WBC 9.6
Hgb 7.7 L
Hct 24.1 L
Plt Count 345
APTT 104.1 H Pending
Sodium 138
Potassium 3.6
Chloride 108 H
Carbon Dioxide 24
BUN 28 H
Creatinine 1.9 H
Glucose 101 H
Calcium 8.1 L
Vital Signs:
Vital Signs
Temp Pulse Resp BP Pulse Ox
97.6 F 74 17 158/78 94
02/27/25 07:30 02/27/25 09:09 02/27/25 07:15 02/27/25 09:09 02/26/25 22:43
I&O
02/26/25 02/27/25 02/28/25
06:59 06:59 06:59
Intake Total 1042 / 1042 950 / 950
Output Total 300 / 300 525 / 525
Balance 742 / 742 425 / 425
[2025-02-27] MEDS: HEPARIN 25000 UNITS/250 ML IV ×2 (10:40→22:35)
--- NOTE | 2025-02-27 11:05 | W.PN.NEPH.PH ---
Today's Communication / Plan
-
Continue to hold dialysis
Labs in the morning
Assessment/Plan
-
IMP:
TME
Septic shock
Lactic acidosis
Sepsis 2/2 to Diabetic left foot cellulitis w/ lymphangitis
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
Acute kidney injury-baseline cr 0.9-1.1
Peripheral artery disease
hyponatremia
IDDM 2
Essential hypertension
Constipation
A-fib�permanent
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
HLD
Obesity due to excess calories
cholecystitis status post cholecystotomy tube
Plan:
Scan without contrast reviewed from yesterday no acute pathology
Holding dialysis again tomorrow
Creatinine stable 1.9 nonoliguric
No acute need for dialysis from left side, volume or uremic standpoint
Would keep the permacath in through the weekend and take it out next week most likely tomorrow remains stable
d/w son
-
-
Date of Service: February 27, 2025
CC / HPI / ROS
-
Chief Complaint:
JESUS
History of Present Illness:
JESUS/HD tolerated HD wednesday 02/21
Hypotensive overnight requiring pressor
JESUS/Cr up to 1.8
Cholecystotomy tube placed with good drainage 02/24/25
Review of Systems:
Nonoliguric
no cp or sob noted
no fever
Labs
-
Labs:
WBC 9.6 10^3/uL (4.8-10.8) 02/27/25 03:36
RBC 2.67 10^6/uL (4.70-6.10) L 02/27/25 03:36
Hgb 7.7 g/dL (13.0-18.0) L 02/27/25 03:36
Hct 24.1 % (39.0-52.0) L 02/27/25 03:36
Plt Count 345 10^3/uL (130-400) 02/27/25 03:36
Sodium 138 mmol/L (135-145) 02/27/25 03:36
Potassium 3.6 mmol/L (3.5-5.1) 02/27/25 03:36
Chloride 108 mmol/L (98-107) H 02/27/25 03:36
Carbon Dioxide 24 mmol/L (22-30) 02/27/25 03:36
BUN 28 mg/dl (9-20) H 02/27/25 03:36
Creatinine 1.9 mg/dL (0.7-1.3) H 02/27/25 03:36
eGFR 35.66 02/27/25 03:36
Glucose 101 mg/dl (70-99) H 02/27/25 03:36
Calcium 8.1 mg/dl (8.4-10.2) L 02/27/25 03:36
Phosphorus 4.4 mg/dl (2.5-4.5) 02/26/25 03:52
Tme-V-Qbrurjvlkvz Pept > 45855 pg/ml 02/01/25 20:16
Albumin 3.0 g/dl (3.5-5.0) L 02/24/25 04:40
Physical Exam
-
Vital Signs:
Vital Signs
Temp Pulse Resp BP Pulse Ox
97.6 F 74 17 158/78 94
02/27/25 07:30 02/27/25 09:09 02/27/25 07:15 02/27/25 09:09 02/26/25 22:43
Cardiovascular:: Regular rate and rhythm
Respiratory:: Bilateral: CTA
Lung Excursion:: Normal
Abdomen:: Nontender and Soft
Bowel Sounds:: Normal
Extremity Edema:: None: Bilateral:
[2025-02-27 11:56] LABS: APTT 88.9 Sec (23.4-35.0)
[2025-02-27 12:33] LABS: Glucose - Point of Care 82 mg/dl (70-99)
--- NOTE | 2025-02-27 13:03 | W.PN.ID1 ---
Date of Service
Date of Service: February 27, 2025
Today's Communication
Continue dapto.
de-escalate Zosyn to Augmentin.
Assessment / Plan
# Acute cholecystitis
# Fever - resolved
# Acute leukocytosis, resolved
- 02/24 s/p perc giacomo, cx negative
-De-escalate Zosyn (d3) to Augmentin 500mg bid.
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
# PAD, left 5th ischemic toe
. s/p CT angiogram
. Holding on vascular intervention at this time due to JESUS, per pt preference.
# JESUS
. HD started 02/02. DC'd 02/24
. Renal function recovering.
# s/p Severe esophagitis
.02/14 s/p EGD
. Biopsy: acute ulcerated esophagitis. Negative HSV, CMV, fungal stains.
# DM2 with neuropathy
- Wound cx MRSA
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
OR cx's : MRSA
Bone path proximal margin + osteomyelitis.
- 02/20 Vancomycin dc'd due to vasculitic skin lesions -> resolving
- Continue Daptomycin IV through 03/16/25 ( 6 weeks abx) from ray amp.
Adjust Daptomycin dose prn for renal function
Follow weekly CK (normal)
- Ongoing difficult shared decision making with Vascular, Ride Operator regarding PAD intervention in setting of JESUS.
Discussed poor wound healing potential, suboptimal antibiotic level at site of osteo, and ischemia may progress if no vascular intervention.
Understandably, pt prefers to hold off on vascular intervention at this time since renal is recovering
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
Diabetes mellitus type 2
Hypertension
Atrial fibrillation on Xarelto
pacemaker placement
Chronic pain with spinal stimulator, not active; stimulator incompatible with MRI
Chronic left leg weakness due to history of back injury during lumbar procedure 2019
Lumbar laminectomy
Chief Complaint
-: Other (osteo of left fifth metatarsal)
Subjective / Review of Systems
Slept well. Appetite better. Eating well.
Had 4 bm yesterday, last one was formed.
Vital Signs / Physical Exam
Vital Signs
Vital Signs
Temp Pulse Resp BP Pulse Ox
97.5 F 90 16 150/69 98
02/27/25 12:29 02/27/25 11:53 02/27/25 11:53 02/27/25 11:53 02/27/25 11:31
Physical Exam
Constitutional: No Acute Distress and Comfortable
Eyes: Sclera Anicteric
Cardiovascular: Regular Rate and S1/S2
Pulmonary: Clear
Gastrointestinal: Soft, Non Distended and Other (RUQ perc drain with bile)
Extremities: Negative Edema
Skin: Rash (BUE, Right ankle resolving)
Neurological: AO x 3
Lines: PICC (RUE)
Objective Data
Lab Data
Lab Results
02/27/25 03:36
02/27/25 03:36
ESR 78 mm/hour (0-20) H 01/28/25 12:23
PT 14.8 Sec (11.4-14.6) H 02/20/25 12:25
INR 1.11 02/20/25 12:25
APTT 88.9 Sec (23.4-35.0) H 02/27/25 11:18
Estimated Creat Clear 32 ml/min 02/27/25 03:36
Lactic Acid 1.3 mmol/L (0.7-2.0) 02/25/25 09:37
Total Bilirubin 1.0 mg/dl (0.2-1.3) 02/24/25 04:40
AST 18 U/L (17-59) 02/24/25 04:40
ALT 13 U/L (0-50) 02/24/25 04:40
Alkaline Phosphatase 143 U/L (38-126) H 02/24/25 04:40
C-Reactive Protein 228.10 mg/L (0.0-10.00) H 01/28/25 12:23
Most recent labs reviewed.
Micro Results:
02/24/25 17:00 Wound Culture - Final
Gallbladder No growth
Gram Stain - Final
02/03/25 21:30 Wound Culture - Final
Foot - Left Staph aureus MRSA
Gram Stain - Final
02/03/25 21:30 Anaerobic Culture - Final
Foot - Left NO ANAEROBES ISOLATED
02/03/25 21:30 Tissue Culture - Final
Foot - Left Staph aureus MRSA
Gram Stain - Final
02/02/25 13:44 Urine Culture - Final
Urine NO GROWTH
01/29/25 04:07 Blood Culture - Final
Blood/Venous No Growth - Final Report
01/28/25 12:24 Blood Culture - Final
Blood/Venous No Growth - Final Report
01/31/25 09:04 Wound Culture - Final
Foot - Left Staph aureus MRSA
Gram Stain - Final
02/01/25 19:47 Influenza Types A & B (GIFTY) - Final
Nasal Swab Negative for Influenza A & B, NAAT
Negative results must be combined with clinical observations
and patient history.
Nucleic Acid Amplification test (NAAT)performed on the
[employer] platform.
01/30/25 10:04 Wound Culture - Final
Foot - Left Staph aureus MRSA
Gram Stain - Final
01/28/25 17:44 MRSA Screen - Final
Nose No Methicillin Resistant Staphylococcus aureus isolated.
Imaging:
01/28/25 Left foot XRAY: No acute osseous abnormality. Mild soft tissue swelling along the lateral forefoot.
02/01/25 CXR: Hazy increased density over the left lower hemithorax, probably mainly due to a posteriorly layering pleural effusion.
02/03/25 CXR: Parenchymal opacity within the right lower lung and the left mid to lower lung, similar to recent radiograph. Main differential considerations of atelectasis and/or pneumonia.
02/04/25 CT LE: 1. Interval amputation of the phalanges of the left 5th toe and the 5th metatarsal head since the prior exam performed 02/01/2025.
2. Large soft tissue wound distal to the 5th metatarsal with soft tissue emphysema extending deep to the lateral cortex of the 4th metatarsal head.
3. Moderate subcutaneous edema throughout the left lower leg and thigh.
4. Moderate to severe calcific atherosclerotic plaque throughout the left lower extremity.
5. Small to moderate-sized left knee joint effusion.
6. Severe anasarca in the left lateral abdominal wall.
7. Moderate retroperitoneal and extraperitoneal edema in the pelvis.
8. Severe diffuse urinary bladder wall thickening with adjacent perivesical inflammation suggesting ACUTE CYSTITIS. Chronic urinary bladder outlet obstruction is also likely present given severe enlargement of the prostate gland.
9. Mild circumferential wall thickening and fluid distention of the rectum suggesting an acute prostatitis. Rectal tube in place.
02/07/25 CXR/AXR: Extremely low lung volumes. Some bibasilar opacification which could represent atelectasis and/or pneumonia and small bilateral pleural effusions, left possibly greater than right. Air seen throughout small bowel, few loops
borderline prominent, nonspecific air-fluid levels, most likely representing ileus. No free air.
02/23/25 Abd US: Gallstones and sludge present with a positive sonographic Edwards's sign and mild wall thickening. Findings likely represent acute cholecystitis. There is no evidence of biliary duct dilation. The common bile duct measures 6 mm.
02/24/25 HIDA: There is no uptake within the gallbladder seen on initial and post morphine images. Findings are consistent with acute cholecystitis.
--- NOTE | 2025-02-27 15:35 | CM ---
CM following re: discharge planning.
Reviewed pt's chart, met with pt and pt's son Javier at bedside.
PT and OT continue recommending acute rehab level of care. A referral to [facility] noted, pending determination status.
D/C plan: [facility] when medically stable.
CM will follow with discharge plan updates as hospitalization progresses
[2025-02-27 17:21] LABS: Glucose - Point of Care 105 mg/dl (70-99)
[2025-02-27] MEDS: LIPITOR 10 MG PO (17:51)
[2025-02-27 19:02] LABS: Glucose - Point of Care 112 mg/dl (70-99)
[2025-02-27] MEDS: PROTONIX 40 MG PO (19:45)
[2025-02-27] MEDS: AUGMENTIN 500 MG/125 MG 1 TABLET PO (19:45)
[2025-02-27] MEDS: REMOVE LIDOCAINE PATCH REMOVE (19:47)
[2025-02-27 21:40] LABS: Glucose - Point of Care 132 mg/dl (70-99)
[2025-02-27] MEDS: LANTUS 0.24 UNITS SC (21:40)
[2025-02-28] VITALS (12 sets, daily range): BP systolic 105–161; BP diastolic 51–90; BMI 30.1
[2025-02-28] MEDS: NSS 1000 IV ×2 (03:03→17:03)
--- NOTE | 2025-02-28 03:27 | PTCARENOTE ---
Assumed care for patient overnight. at the bedside at change of shift. Pt AAOx3, withdrawn. A-fib on the monitor. Pt remains on room air. Heparin gtt cont. IVF cont. Cholecystostomy with brown output. Pt denies pain. Pt utilizing the urinal.
CHG bath done with full linen change. Call cervantes within reach.
[2025-02-28 05:55] LABS: Hematocrit 25.1 % (39.0-52.0); Hemoglobin 8.3 g/dL (13.0-18.0); Mean Corp Hgb Conc. 33.1 g/dL (33.0-37.0); Mean Corpuscular Volume 90.3 fL (80.0-94.0); Platelet Count 340 10^3/uL (130-400); Red Cell Dist. Width 14.6 % (11.5-14.5)
[2025-02-28 06:18] LABS: APTT 117.6 Sec (23.4-35.0)
[2025-02-28 07:03] LABS: Blood Urea Nitrogen 22 mg/dl (9-20); Calcium 8.6 mg/dl (8.4-10.2); Carbon Dioxide 25 mmol/L (22-30); Chloride 109 mmol/L (98-107); Estimated Creatinine Clearance 46 ml/min; Glucose 64 mg/dl (70-99); Magnesium 1.6 mg/dl (1.6-2.3); Potassium 3.3 mmol/L (3.5-5.1); Sodium 139 mmol/L (135-145); eGFR 47.36
--- NOTE | 2025-02-28 08:08 | W.PN.HOSP.TC ---
Today's Communication/Plan
-
Continue to monitor hemoglobin
Continue IV heparin drip
Plan for discharge to acute rehab at [facility] Monday when bed is available
Assessment / Plan
Assessment / Plan
Sepsis without septic shock
Acute cholecystitis
-With fever and leukocytosis on 02/23
-Appreciate general surgery input, recommend biliary drain since patient is high risk for surgical intervention
-Status post percutaneous cholecystostomy tube 02/24 with IR, cx neg
-Resolving on IV zosyn, ID changed zosyn to augmentin 500 mg twice daily through 03/06/25
-Lactic acid normal, off Levophed 02/25
-Needs outpatient follow-up with Dr. Bernabe Juarez
-Accepted to [facility], bed is not available until 03/04/2025
-Plan for discharge to [facility] on 03/04/2025, then have outpatient angiogram with Dr. Gonzalez on 03/07/2025
Aspiration pneumonitis/acute hypoxic respiratory failure - triggered by vomiting, possibly triggered by ileus. Oxygenation improved, now on room air.
Acute TME - due to sepsis, shock, critical illness. Mental status much improved and now at baseline.
Septic shock - due to to left fifth metatarsal abscess, acute osteomyelitis. Sepsis and shock resolved.
Chronic left lower extremity weakness due to back injury during procedure 2019
-Appreciate ID input, continue IV daptomycin through 03/16/2025 for 6 weeks
-Shock resolved. Off vasopressors. Blood cultures negative so far. Wound culture shows MRSA.
-Leukocytosis improved overall. Afebrile.
-Unable to have MRI due to spinal stimulator not active
-Wound culture grew MRSA
-Patient underwent left partial fifth ray amputation 02/03. Podiatry following. Path report from 02/04 shows focal acute osteomyelitis, clean margin from left foot fifth ray.
Nonblanching skin lesions -unclear if vasculitis, possibly due to vancomycin. Not truly palpable purpura. Now off vancomycin and on daptomycin per ID.
PAD
-Per patient's , the PAD in his left leg is a lot more severe than his right leg
-CT angiogram done 02/01 shows multifocal atherosclerotic disease throughout the bilateral lower extremities. Diminished flow in the left anterior tibial artery with some apparent distal reconstitution, diminished flow at the distal aspect of the
left peroneal artery at the level of the ankle. Short segment high-grade stenosis of the distal right SFA.
-Vascular surgery has been having ongoing discussions with family regarding goals of care and decision for left lower extremity revascularization with potential risk for further renal deterioration.
-Plan for outpatient angiogram with Dr. Gonzalez on 03/07/2025
Lactic acidosis due to sepsis/shock - normalized.
-Differential diagnosis include metformin induced versus worsening sepsis
-Metformin discontinued 02/01
-MAP has been consistently greater than 65
Acute kidney injury
- due to septic shock. Anuric. Gonzalez catheter was placed. Etiology of JESUS most likely due to septic shock and medications and less likely due to contrast-induced nephropathy as contrast exposure was on 02/01, creatinine was 3.3 morning of 02/01.
-Appreciate nephrology input, dialysis started 02/02. Dialysis IJ catheter was placed.
-High anion gap metabolic acidosis due to septic shock, lactic acidosis. Metabolic acidosis resolved. Off sodium bicarbonate IV.
-Hold metformin, lisinopril, hydrochlorothiazide, trend creatinine, no nephrotoxic drugs or NSAIDs
-Last dialyzed 02/22. Patient currently having renal recovery, nephrology to monitor and determine any further needs for dialysis
-Cleared by nephrology to have his angiogram on 03/07/2025
Ileus -resolved. Did have some abdominal pain overnight and was treated with morphine. Obstruction series ordered, report pending. Bowels are moving however.
- developed nausea and vomiting on 02/03. Briefly treated with NG tube.
- Repeat x-ray 02/07 showed air throughout the small bowel, few loops borderline prominent, nonspecific air-fluid levels, most likely ileus. No free air.
- Held narcotics/IV Dilaudid prn (started Tylenol for pain control instead)
- Patient having bowel movements
- Repeat x-ray from 02/12/25 was okay
Odynophagia secondary to Severe Esophagitis found on EGD 02/13/25
Poor PO Intake Secondary to Above
-GI performed EGD on 02/13/25: showed severe esophagitis
Path report shows acute ulcerative esophagitis, immunohistochemical stains negative for HSV 1 and 2, CMV. No fungal organisms identified.
-Continue PPI BID and Carafate
-On discharge cont Protonix PO BID x 4 weeks then daily and carafate AC and HS with wean to BID in 2 weeks then daily x 2 weeks then stop
Acute GI bleed/acute esophagitis -GI bleed resolved. Stools have been brown.
EGD performed 02/13 shows LA grade D reflux esophagitis without bleeding. Normal stomach, normal duodenum. Dobbhoff tube clogged as per nursing. Now that patient tolerating soft diet can DC Dobbhoff tube.
-Acute GI bleed exacerbated by anticoagulation with IV heparin.
-Continue PPI twice daily and Carafate.
Acute blood loss anemia mixed with anemia of renal failure and sepsis
-Due to GI bleed as above. Admission hemoglobin was 11.6. May have baseline chronic anemia of unclear etiology.
Suspect component of anemia related to critical illness as well as renal failure.
- 02/26, hemoglobin down to 6.5, CT without contrast negative for intraperitoneal bleed, stools are brown
- Hemoglobin improved to 7.7 status post 1 unit packed red blood cells 02/26
- Hemoglobin continues to trend up, trend Hgb, transfuse for Hgb < 7.0
Hypokalemia -replete as needed
Mild Hematuria -- RESOLVED
- Noted on 02/12/25, later resolved while on Heparin Drip
- Monitor for now
LUE edema
LUE pain from needlesticks
- Doppler ultrasound negative for DVT, repeat US 02/27 also neg
- Ordered scheduled Tylenol 1000 mg Q8H (which is helping)
Acute on chronic heart failure with preserved ejection fraction
- Cardiology saw patient this hospitalization, continue dialysis as per nephrology
- Dr. Munoz is his corrections specialist
Troponin elevation
- Suspect acute nonischemic myocardial injury due to septic shock. Troponins trended down.
Permanent atrial fibrillation -
-Continue Heparin Drip. Was on Xarelto prior to admission -- plan to transition back to oral anticoagulation once no further procedures planned
-Outpatient Toprol XL added back on 02/12/25
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
Known moderate nonobstructive coronary disease in 2021
-Continue statin
2 consecutive episodes of VT overnight 02/10/25 to 02/11/25
-Seen by cardiology this admission
- Resumed Toprol XL
Hyponatremia
- Resolved.
Hypomagnesemia
- Replete as needed
Hyperphosphatemia
- due to JESUS. Improving. Repeat phosphorus normal.
DM 2 with hyperglycemia -glucoses have improved overnight, 124 this morning, 161 last night.
-At home he was on insulin degludec 24 units at bedtime, NovoLog sliding scale with meals, metformin.
-Hemoglobin A1c 7.1 on 01/13/2025
-Hold metformin 1000 mg daily due to JESUS and lactic acidosis earlier this hospitalization
-Dr. Pathak is his riveter portable machine
-Adjust insulin as needed based on patient's oral intake, currently receiving Lantus 24 units at bedtime, sliding scale insulin
Hyperlipidemia
- Resumed statin
Chronic back pain
-Patient sees a pain management provider outpatient
Obesity due to excess calories
DVT Prophylaxis: Heparin Drip.
Code Status: Full code
Dispo -SNF vs acute rehab when medically stable.
Updated on phone 02/28
Total time spent to see the patient on the floor, examine the patient, review data and lab results, discuss treatment plan with patient, nursing staff around 50 minutes.
Physical Exam
General: Appears less tired, no acute distress
HEENT: Normocephalic, Atraumatic, EOMI, MMM
Respiratory: Clear to Auscultation bilaterally
Cardiac: Normal S1/S2, Regular Rate and Rhythm
GI: Soft, tender at the right upper quadrant, Nondistended, Normal Bowel Sounds
Biliary drain in place
Extremities: No Clubbing, Cyanosis
Left foot dressed
LUE edema noted
Neuro: Nonfocal/Grossly Intact
Anticipated Discharge: > 48 hours
Subjective/Interval History
-
Date of Service: February 28, 2025
Patient reports feeling less tired. He is having multiple soft bowel movements. Denies abdominal pain, denies left foot pain. No fever, no vomiting.
Objective Data
-
Labs:
Laboratory Results
02/28/25 02/28/25
05:31 12:30
WBC 9.4
Hgb 8.3 L
Hct 25.1 L
Plt Count 340
APTT 117.6 H Pending
Sodium 139
Potassium 3.3 L
Chloride 109 H
Carbon Dioxide 25
BUN 22 H
Creatinine 1.5 H
Glucose 64 L
Calcium 8.6
Vital Signs:
Vital Signs
Temp Pulse Resp BP Pulse Ox
97.7 F 88 16 139/83 94
02/28/25 03:28 02/28/25 06:00 02/28/25 06:00 02/28/25 06:00 02/28/25 04:00
I&O
02/27/25 02/28/25 03/01/25
06:59 06:59 06:59
Intake Total 950 / 950
Output Total 525 / 525 830 / 830
Balance 425 / 425 -830 / -830
[2025-02-28] MEDS: LIDOCAINE 4% PATCH TOPICAL (08:18)
[2025-02-28] MEDS: TYLENOL PO ×3 (08:18→21:55)
[2025-02-28] MEDS: TOPROL XL 25 MG PO ×2 (08:19→19:49)
[2025-02-28] MEDS: CARAFATE SUSPENSION 1 GM PO ×3 (08:19→21:55)
[2025-02-28] MEDS: AUGMENTIN 500 MG/125 MG 1 TABLET PO ×2 (08:21→19:48)
[2025-02-28] MEDS: PROTONIX 40 MG PO ×2 (08:21→19:48)
[2025-02-28] MEDS: KCL 20 MEQ PO (08:21)
[2025-02-28] MEDS: DESENEX/MITRAZOL/ZEASORB 1 APPLIC TOPICAL ×2 (08:22→19:49)
[2025-02-28 08:48] LABS: Glucose - Point of Care 63 mg/dl (70-99)
[2025-02-28] MEDS: NOVOLOG FLEXPEN-LOW RESISTANCE SC ×3 (08:54→17:03)
[2025-02-28 09:04] LABS: Glucose - Point of Care 67 mg/dl (70-99)
--- NOTE | 2025-02-28 09:23 | CM ---
chart reviewed
02/24 s/p perc giacomo, cx negative
on IV antibiotics
PT/OT rec Acute Rehab
Spoke with Carol Ann from [facility], states beds avail Tues
[facility] referral in [facility]
PLAN: [facility], pending bed availability when stable
[2025-02-28 09:24] LABS: Glucose - Point of Care 83 mg/dl (70-99)
[2025-02-28] MEDS: HEPARIN 25000 UNITS/250 ML IV ×2 (09:26→21:59)
--- NOTE | 2025-02-28 09:29 | W.PN.NEPH.PH ---
Today's Communication / Plan
-
monitor bmp
Creatinine improved to 1.5 and grossly nonoliguric
Holding diuretics for now
Assessment/Plan
-
IMP:
TME
Septic shock
Lactic acidosis
Sepsis 2/2 to Diabetic left foot cellulitis w/ lymphangitis
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
Acute kidney injury-baseline cr 0.9-1.1
Peripheral artery disease
hyponatremia
IDDM 2
Essential hypertension
Constipation
A-fib�permanent
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
HLD
Obesity due to excess calories
cholecystitis status post cholecystotomy tube
Plan:
Scan without contrast reviewed from yesterday no acute pathology
Holding dialysis again tomorrow
Creatinine improved 1.5 nonoliguric
No acute need for dialysis from left side, volume or uremic standpoint
Would keep the permacath in through the weekend and take it out next week most likely tomorrow remains stable
d/w son
-
-
Date of Service: February 28, 2025
CC / HPI / ROS
-
Chief Complaint:
JESUS
History of Present Illness:
JESUS/HD tolerated HD wednesday 02/21
Hypotensive overnight requiring pressor
JESUS/Cr up to 1.5
Cholecystotomy tube placed with good drainage 02/24/25
Review of Systems:
Nonoliguric
no cp or sob noted
no fever
Labs
-
Labs:
WBC 9.4 10^3/uL (4.8-10.8) 02/28/25 05:31
RBC 2.78 10^6/uL (4.70-6.10) L 02/28/25 05:31
Hgb 8.3 g/dL (13.0-18.0) L 02/28/25 05:31
Hct 25.1 % (39.0-52.0) L 02/28/25 05:31
Plt Count 340 10^3/uL (130-400) 02/28/25 05:31
Sodium 139 mmol/L (135-145) 02/28/25 05:31
Potassium 3.3 mmol/L (3.5-5.1) L 02/28/25 05:31
Chloride 109 mmol/L (98-107) H 02/28/25 05:31
Carbon Dioxide 25 mmol/L (22-30) 02/28/25 05:31
BUN 22 mg/dl (9-20) H 02/28/25 05:31
Creatinine 1.5 mg/dL (0.7-1.3) H 02/28/25 05:31
eGFR 47.36 02/28/25 05:31
Glucose 64 mg/dl (70-99) L 02/28/25 05:31
Calcium 8.6 mg/dl (8.4-10.2) 02/28/25 05:31
Phosphorus 4.4 mg/dl (2.5-4.5) 02/26/25 03:52
Dqf-[id number] Pept > 73341 pg/ml 02/01/25 20:16
Albumin 3.0 g/dl (3.5-5.0) L 02/24/25 04:40
Physical Exam
-
Vital Signs:
Vital Signs
Temp Pulse Resp BP Pulse Ox
97.7 F 73 16 147/89 94
02/28/25 03:28 02/28/25 08:19 02/28/25 06:00 02/28/25 08:19 02/28/25 04:00
Cardiovascular:: Regular rate and rhythm
Respiratory:: Bilateral: CTA
Lung Excursion:: Normal
Abdomen:: Nontender and Soft
Bowel Sounds:: Normal
Extremity Edema:: None: Bilateral:
--- NOTE | 2025-02-28 10:00 | PTCARENOTE ---
Patient's AM blood sugar was 63. Gave patient 15 oz of juice. Rechecked blood sugar 15 minutes after and was 67. Gave patient another 15 oz of juice. Rechecked blood sugar 15 minutes after and was 83. Patient asymptomatic. Care ongoing.
[2025-02-28 11:28] LABS: Glucose - Point of Care 95 mg/dl (70-99)
[2025-02-28] MEDS: CARAFATE SUSPENSION PO (12:14)
--- NOTE | 2025-02-28 12:32 | W.PN.ID1 ---
Date of Service
Date of Service: February 28, 2025
Today's Communication
Continue Augmentin and Daptomycin.
Assessment / Plan
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
# PAD, left 5th ischemic toe
. s/p CT angiogram
# JESUS
. HD started 02/02. DC'd 02/24
. Renal function recovering.
# s/p Severe esophagitis
.02/14 s/p EGD
. Biopsy: acute ulcerated esophagitis. Negative HSV, CMV, fungal stains.
# DM2 with neuropathy
- Wound cx MRSA
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
OR cx's : MRSA
Bone path proximal margin + osteomyelitis.
- Continue Daptomycin IV through 03/16/25 ( 6 weeks abx) from ray amp.
Renally adjusted Daptomycin dose.
Follow weekly CK (normal) qMonday.
-Tentative plan for revascularization next week followed by further wound debridement and closure.
# Acute cholecystitis
# Fever - resolved
# Acute leukocytosis, resolved
- 02/24 s/p perc giacomo, cx negative
-Continue Augmentin 500mg po bid through 03/06/25.
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
Diabetes mellitus type 2
Hypertension
Atrial fibrillation on Xarelto
pacemaker placement
Chronic pain with spinal stimulator, not active; stimulator incompatible with MRI
Chronic left leg weakness due to history of back injury during lumbar procedure 2019
Lumbar laminectomy
Chief Complaint
-: Other (osteo of left fifth metatarsal)
Subjective / Review of Systems
LUE still swollen. Has large soft BM's.
Vital Signs / Physical Exam
Vital Signs
Vital Signs
Temp Pulse Resp BP Pulse Ox
97.7 F 74 17 112/90 96
02/28/25 03:28 02/28/25 12:00 02/28/25 12:00 02/28/25 12:00 02/28/25 11:00
Physical Exam
Constitutional: No Acute Distress and Comfortable
Eyes: Sclera Anicteric
Cardiovascular: Regular Rate and S1/S2
Pulmonary: Clear
Gastrointestinal: Soft, Non Distended and Other (RUQ perc drain with bile)
Extremities: Edema (LUE )
Wound: Other (left foot examined with podiatry, 5th ray amp site wound with necrotic tissue, wound base dry and ischemic, no erythema)
Neurological: AO x 3
Lines: PICC (RUE)
Objective Data
Lab Data
Lab Results
02/28/25 05:31
02/28/25 05:31
ESR 78 mm/hour (0-20) H 01/28/25 12:23
PT 14.8 Sec (11.4-14.6) H 02/20/25 12:25
INR 1.11 02/20/25 12:25
APTT 117.6 Sec (23.4-35.0) H 02/28/25 05:31
Estimated Creat Clear 46 ml/min 02/28/25 05:31
Lactic Acid 1.3 mmol/L (0.7-2.0) 02/25/25 09:37
Total Bilirubin 1.0 mg/dl (0.2-1.3) 02/24/25 04:40
AST 18 U/L (17-59) 02/24/25 04:40
ALT 13 U/L (0-50) 02/24/25 04:40
Alkaline Phosphatase 143 U/L (38-126) H 02/24/25 04:40
C-Reactive Protein 228.10 mg/L (0.0-10.00) H 01/28/25 12:23
Most recent labs reviewed.
Micro Results:
02/24/25 17:00 Wound Culture - Final
Gallbladder No growth
Gram Stain - Final
02/03/25 21:30 Wound Culture - Final
Foot - Left Staph aureus MRSA
Gram Stain - Final
02/03/25 21:30 Anaerobic Culture - Final
Foot - Left NO ANAEROBES ISOLATED
02/03/25 21:30 Tissue Culture - Final
Foot - Left Staph aureus MRSA
Gram Stain - Final
02/02/25 13:44 Urine Culture - Final
Urine NO GROWTH
01/29/25 04:07 Blood Culture - Final
Blood/Venous No Growth - Final Report
01/28/25 12:24 Blood Culture - Final
Blood/Venous No Growth - Final Report
01/31/25 09:04 Wound Culture - Final
Foot - Left Staph aureus MRSA
Gram Stain - Final
02/01/25 19:47 Influenza Types A & B (GIFTY) - Final
Nasal Swab Negative for Influenza A & B, NAAT
Negative results must be combined with clinical observations
and patient history.
Nucleic Acid Amplification test (NAAT)performed on the
[employer] platform.
01/30/25 10:04 Wound Culture - Final
Foot - Left Staph aureus MRSA
Gram Stain - Final
01/28/25 17:44 MRSA Screen - Final
Nose No Methicillin Resistant Staphylococcus aureus isolated.
Imaging:
01/28/25 Left foot XRAY: No acute osseous abnormality. Mild soft tissue swelling along the lateral forefoot.
02/01/25 CXR: Hazy increased density over the left lower hemithorax, probably mainly due to a posteriorly layering pleural effusion.
02/03/25 CXR: Parenchymal opacity within the right lower lung and the left mid to lower lung, similar to recent radiograph. Main differential considerations of atelectasis and/or pneumonia.
02/04/25 CT LE: 1. Interval amputation of the phalanges of the left 5th toe and the 5th metatarsal head since the prior exam performed 02/01/2025.
2. Large soft tissue wound distal to the 5th metatarsal with soft tissue emphysema extending deep to the lateral cortex of the 4th metatarsal head.
3. Moderate subcutaneous edema throughout the left lower leg and thigh.
4. Moderate to severe calcific atherosclerotic plaque throughout the left lower extremity.
5. Small to moderate-sized left knee joint effusion.
6. Severe anasarca in the left lateral abdominal wall.
7. Moderate retroperitoneal and extraperitoneal edema in the pelvis.
8. Severe diffuse urinary bladder wall thickening with adjacent perivesical inflammation suggesting ACUTE CYSTITIS. Chronic urinary bladder outlet obstruction is also likely present given severe enlargement of the prostate gland.
9. Mild circumferential wall thickening and fluid distention of the rectum suggesting an acute prostatitis. Rectal tube in place.
02/07/25 CXR/AXR: Extremely low lung volumes. Some bibasilar opacification which could represent atelectasis and/or pneumonia and small bilateral pleural effusions, left possibly greater than right. Air seen throughout small bowel, few loops
borderline prominent, nonspecific air-fluid levels, most likely representing ileus. No free air.
02/23/25 Abd US: Gallstones and sludge present with a positive sonographic Edwards's sign and mild wall thickening. Findings likely represent acute cholecystitis. There is no evidence of biliary duct dilation. The common bile duct measures 6 mm.
02/24/25 HIDA: There is no uptake within the gallbladder seen on initial and post morphine images. Findings are consistent with acute cholecystitis.
Care Review
Plan reviewed with: Physician (Dr. Guzman and Tia)
[2025-02-28] MEDS: NSS IV (12:55)
[2025-02-28] MEDS: VISBIOME 2 CAP PO (12:59)
[2025-02-28 13:27] LABS: APTT > 200 Sec (23.4-35.0)
[2025-02-28 13:40] LABS: Glucose - Point of Care 86 mg/dl (70-99)
--- NOTE | 2025-02-28 13:54 | W.PN.POD ---
Today's Communication
Today's Communication
S/P Partial left 5th ray amputation
Assessment / Plan
-
S/P Left partial 5th ray amputation - secondary to Left foot Diabetic foot infection
PAD with left foot ischemic changes at surgical site
Plan:
The left foot wound was flushed and dressed with silver alginate today. Continue antibiotics per ID. Bone culture of the proximal margin 5th metatarsal was positive for osteomyelitis - This was discussed with his son & at bedside. We
discussed plans for ultimate repeat debridement of soft tissue and bone prior to discharge if blood flow is able to be optimized. will follow vascular plans.
Subjective
Chief Complaint
S/P partial left 5th ray amputation
Subjective
Patient seen at bedside, awake and conversational today. Son is present, is on the phone.
Objective
Temp Pulse Resp BP Pulse Ox
97.7 F 74 17 112/90 96
02/28/25 03:28 02/28/25 12:00 02/28/25 12:00 02/28/25 12:00 02/28/25 11:00
02/28/25 05:31
02/28/25 05:31
Vital Signs and Lab results were reviewed.
Physical Exam
Physical Exam
Left foot with bandages intact, minimal strikethrough on inner bandages. non-palpable pulses, CFT delayed, Packing in place, wound bed is clean with no purulence expressed and erythema resolved. The periphery of the wound is dark eschar and the
base of the wound is dark and non viable with no bleeding
[2025-02-28 14:03] LABS: APTT 109.7 Sec (23.4-35.0)
--- NOTE | 2025-02-28 14:24 | PTCARENOTE ---
PTT collected off of R PICC line. RN did not stop heparin gtt when obtaining labs and PTT >200. Redrew PTT and was 109.7. No change in heparin gtt. Care ongoing.
[2025-02-28] MEDS: CUBICIN 16 MG IV (14:52)
--- NOTE | 2025-02-28 15:59 | PTCARENOTE ---
Patient AOx3. Flat affect. Denies pain. On RA with SpO2 greater than 92%. A fib on he monitor. BP stable. Generalized and L arm edema. Ultrasound negative for DVT. Elevated arm on pillow. IVF and heparin gtt running per order through R PICC line.
Utilizes urinal. Incontinent to bowel. Family updated on plan of care. Call cervantes within reach, bed in lowest position, and bed of wheels locked.
[2025-02-28] MEDS: LIPITOR 10 MG PO (17:00)
[2025-02-28 17:13] LABS: Glucose - Point of Care 123 mg/dl (70-99)
[2025-02-28] MEDS: REMOVE LIDOCAINE PATCH REMOVE (19:49)
[2025-02-28 20:22] LABS: APTT 96.8 Sec (23.4-35.0)
[2025-02-28 21:18] LABS: Glucose - Point of Care 185 mg/dl (70-99)
[2025-02-28] MEDS: LANTUS 0.24 UNITS SC (21:55)
[2025-03-01] VITALS (13 sets, daily range): BP systolic 153–178; BP diastolic 56–88; PULSE 77; BMI 29.3
--- NOTE | 2025-03-01 00:56 | PTCARENOTE ---
Patient AAOx3, flat affect. and son bedside at change of shift. A-fib on the monitor. Pt on room air, SpO2 96%. PTT therapeutic, heparin gtt cont. IVF cont. R PICC dressing clean dry and intact. L arm edematous, elevated on a pillow. Pt c/o
pain to b/l knees. Pt repositioned and pillows under knees. Pt refused scheduled Tylenol. L foot wound redressed and cleansed, clean, dry, and intact. Pt utilizing the urinal to void. Pt educated regarding the importance of turning, pt tolerating
frequent turning and repositioning. Call cervantes within reach.
[2025-03-01 03:48] LABS: Glucose - Point of Care 165 mg/dl (70-99)
[2025-03-01] MEDS: TOPROL XL 25 MG PO ×2 (06:01→21:39)
[2025-03-01 06:21] LABS: Hematocrit 23.7 % (39.0-52.0); Hemoglobin 7.5 g/dL (13.0-18.0); Mean Corp Hgb Conc. 31.6 g/dL (33.0-37.0); Mean Corpuscular Volume 91.5 fL (80.0-94.0); Platelet Count 310 10^3/uL (130-400); Red Cell Dist. Width 14.8 % (11.5-14.5)
--- NOTE | 2025-03-01 06:36 | PTCARENOTE ---
Patient BP increasing throughout the night. CAPRICE Peters made aware, gave OK to give 0800 dose of Toprol at 0600. See MAR.
[2025-03-01 06:40] LABS: APTT 119.5 Sec (23.4-35.0)
[2025-03-01 07:07] LABS: Blood Urea Nitrogen 16 mg/dl (9-20); Calcium 8.5 mg/dl (8.4-10.2); Carbon Dioxide 23 mmol/L (22-30); Chloride 110 mmol/L (98-107); Estimated Creatinine Clearance 47 ml/min; Glucose 144 mg/dl (70-99); Potassium 3.7 mmol/L (3.5-5.1); Sodium 139 mmol/L (135-145); eGFR 56.23
--- NOTE | 2025-03-01 07:57 | W.PN.NEPH.PH ---
Today's Communication / Plan
-
Restart hydralazine for hypertension
No dialysis requirement
Creatinine down to 1.3
Assessment/Plan
-
IMP:
TME
Septic shock
Lactic acidosis
Sepsis 2/2 to Diabetic left foot cellulitis w/ lymphangitis
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
Acute kidney injury-baseline cr 0.9-1.1
Peripheral artery disease
hyponatremia
IDDM 2
Essential hypertension
Constipation
A-fib�permanent
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
HLD
Obesity due to excess calories
cholecystitis status post cholecystotomy tube
Plan:
Adding back hydralazine 25 mg twice daily for hypertension
Creatinine improved 1.3 nonoliguric
No acute need for dialysis from left side, volume or uremic standpoint
Would keep the permacath in through the weekend and take it early this week
Currently now optimized for angiogram when needed from renal perspective but will require contrast prophylaxis
-
-
Date of Service: March 01, 2025
CC / HPI / ROS
-
Chief Complaint:
JESUS
History of Present Illness:
JESUS/HD
JESUS/Cr up to 1.3
Cholecystotomy tube placed with good drainage 02/24/25
Review of Systems:
Nonoliguric
no cp or sob noted
no fever
Labs
-
Labs:
WBC 8.3 10^3/uL (4.8-10.8) 03/01/25 06:00
RBC 2.59 10^6/uL (4.70-6.10) L 03/01/25 06:00
Hgb 7.5 g/dL (13.0-18.0) L 03/01/25 06:00
Hct 23.7 % (39.0-52.0) L 03/01/25 06:00
Plt Count 310 10^3/uL (130-400) 03/01/25 06:00
Sodium 139 mmol/L (135-145) 03/01/25 06:00
Potassium 3.7 mmol/L (3.5-5.1) 03/01/25 06:00
Chloride 110 mmol/L (98-107) H 03/01/25 06:00
Carbon Dioxide 23 mmol/L (22-30) 03/01/25 06:00
BUN 16 mg/dl (9-20) 03/01/25 06:00
Creatinine 1.3 mg/dL (0.7-1.3) 03/01/25 06:00
eGFR 56.23 03/01/25 06:00
Glucose 144 mg/dl (70-99) H 03/01/25 06:00
Calcium 8.5 mg/dl (8.4-10.2) 03/01/25 06:00
Phosphorus 4.4 mg/dl (2.5-4.5) 02/26/25 03:52
Bxc-E-Vdovpyzsodc Pept > 37555 pg/ml 02/01/25 20:16
Albumin 3.0 g/dl (3.5-5.0) L 02/24/25 04:40
Physical Exam
-
Vital Signs:
Vital Signs
Temp Pulse Resp BP Pulse Ox
97.5 F 63 16 174/59 98
03/01/25 03:00 03/01/25 06:01 03/01/25 06:00 03/01/25 06:01 02/28/25 23:21
Cardiovascular:: Regular rate and rhythm
Respiratory:: Bilateral: CTA
Lung Excursion:: Normal
Abdomen:: Nontender and Soft
Bowel Sounds:: Normal
Extremity Edema:: None: Bilateral:
[2025-03-01 08:39] LABS: Glucose - Point of Care 139 mg/dl (70-99)
[2025-03-01] MEDS: NOVOLOG FLEXPEN-LOW RESISTANCE SC ×3 (08:40→16:21)
[2025-03-01] MEDS: CARAFATE SUSPENSION 1 GM PO ×2 (09:30→21:36)
[2025-03-01] MEDS: AUGMENTIN 500 MG/125 MG 1 TABLET PO (09:31)
[2025-03-01] MEDS: TYLENOL 975 MG PO ×2 (09:32→22:00)
[2025-03-01] MEDS: VISBIOME 2 CAP PO (09:33)
[2025-03-01] MEDS: LIDOCAINE 4% PATCH TOPICAL (09:34)
[2025-03-01] MEDS: PROTONIX 40 MG PO ×2 (09:34→21:38)
[2025-03-01] MEDS: APRESOLINE 25 MG PO ×2 (09:34→21:39)
[2025-03-01] MEDS: DESENEX/MITRAZOL/ZEASORB 1 APPLIC TOPICAL ×2 (09:35→21:39)
[2025-03-01] MEDS: HEPARIN 25000 UNITS/250 ML IV ×2 (09:40→22:27)
[2025-03-01] MEDS: NSS 1000 IV (10:06)
--- NOTE | 2025-03-01 10:59 | W.PN.HOSP.TC ---
Today's Communication/Plan
-
see bold
Assessment / Plan
Assessment / Plan
Septic shock - due to to left fifth metatarsal abscess, acute osteomyelitis. Sepsis and shock resolved.
Chronic left lower extremity weakness due to back injury during procedure 2019
-Appreciate ID input, continue IV daptomycin through 03/16/2025 for 6 weeks
-Shock resolved. Off vasopressors. Blood cultures negative so far. Wound culture shows MRSA.
-Leukocytosis improved overall. Afebrile.
-Unable to have MRI due to spinal stimulator not active
-Wound culture grew MRSA
-Patient underwent left partial fifth ray amputation 02/03. Path report from 02/04 shows focal acute osteomyelitis
-Bone culture of the proximal margin 5th metatarsal was positive for osteomyelitis
-Podiatry plans for repeat debridement of soft tissue and bone prior to discharge after revascularization
PAD
-Per patient's , the PAD in his left leg is a lot more severe than his right leg
-CT angiogram done 02/01 shows multifocal atherosclerotic disease throughout the bilateral lower extremities. Diminished flow in the left anterior tibial artery with some apparent distal reconstitution, diminished flow at the distal aspect of the
left peroneal artery at the level of the ankle. Short segment high-grade stenosis of the distal right SFA.
-Vascular surgery has been having ongoing discussions with family regarding goals of care and decision for left lower extremity revascularization with potential risk for further renal deterioration.
-Discussed with vascular surgery, plans for angiogram for possible Sunday 03/04 versus Wednesday 03/07
Acute kidney injury
- due to septic shock. Anuric. Gonzalez catheter was placed. Etiology of JESUS most likely due to septic shock and medications and less likely due to contrast-induced nephropathy as contrast exposure was on 02/01, creatinine was 3.3 morning of 02/01.
-Appreciate nephrology input, dialysis started 02/02. Dialysis IJ catheter was placed.
-High anion gap metabolic acidosis due to septic shock, lactic acidosis. Metabolic acidosis resolved. Off sodium bicarbonate IV.
-Hold metformin, lisinopril, hydrochlorothiazide, trend creatinine, no nephrotoxic drugs or NSAIDs
-Last dialyzed 02/22. Patient currently having renal recovery, nephrology to monitor and determine any further needs for dialysis
-Cleared by nephrology to have his angiogram early next week
Sepsis without septic shock
Acute cholecystitis
-With fever and leukocytosis on 02/23
-Appreciate general surgery input, recommend biliary drain since patient is high risk for surgical intervention
-Status post percutaneous cholecystostomy tube 02/24 with IR, cx neg
-Resolving status post IV Zosyn, ID recommends augmentin 500 mg twice daily through 03/06/25
-Lactic acid normal, off Levophed 02/25
-Needs outpatient follow-up with Dr. Bernabe Juarez
Ileus -resolved. Did have some abdominal pain overnight and was treated with morphine. Obstruction series ordered, report pending. Bowels are moving however.
- developed nausea and vomiting on 02/03. Briefly treated with NG tube.
- Repeat x-ray 02/07 showed air throughout the small bowel, few loops borderline prominent, nonspecific air-fluid levels, most likely ileus. No free air.
- Held narcotics/IV Dilaudid prn (started Tylenol for pain control instead)
- Patient having bowel movements
- Repeat x-ray from 02/12/25 was okay
Lactic acidosis due to sepsis/shock - normalized.
-Differential diagnosis include metformin induced versus worsening sepsis
-Metformin discontinued 02/01
-MAP has been consistently greater than 65
Aspiration pneumonitis/acute hypoxic respiratory failure - triggered by vomiting, possibly triggered by ileus. Oxygenation improved, now on room air.
Acute TME - due to sepsis, shock, critical illness. Mental status much improved and now at baseline.
Odynophagia secondary to Severe Esophagitis found on EGD 02/13/25
Poor PO Intake Secondary to Above
-GI performed EGD on 02/13/25: showed severe esophagitis
Path report shows acute ulcerative esophagitis, immunohistochemical stains negative for HSV 1 and 2, CMV. No fungal organisms identified.
-Continue PPI BID and Carafate
-On discharge cont Protonix PO BID x 4 weeks then daily and carafate AC and HS with wean to BID in 2 weeks then daily x 2 weeks then stop
Acute GI bleed/acute esophagitis -GI bleed resolved. Stools have been brown.
EGD performed 02/13 shows LA grade D reflux esophagitis without bleeding. Normal stomach, normal duodenum. Dobbhoff tube clogged as per nursing. Now that patient tolerating soft diet can DC Dobbhoff tube.
-Acute GI bleed exacerbated by anticoagulation with IV heparin.
-Continue PPI twice daily and Carafate.
Acute blood loss anemia mixed with anemia of renal failure and sepsis
-Due to GI bleed as above. Admission hemoglobin was 11.6. May have baseline chronic anemia of unclear etiology.
Suspect component of anemia related to critical illness as well as renal failure.
- 02/26, hemoglobin down to 6.5, CT without contrast negative for intraperitoneal bleed, stools are brown
- Hemoglobin improved to 7.7 status post 1 unit packed red blood cells 02/26
- Hemoglobin has been stable, continue to trend and transfuse for hemoglobin less than 7.0
Nonblanching skin lesions -unclear if vasculitis, possibly due to vancomycin. Not truly palpable purpura. Now off vancomycin and on daptomycin per ID.
Hypokalemia -replete as needed
Mild Hematuria -- RESOLVED
- Noted on 02/12/25, later resolved while on Heparin Drip
- Monitor for now
LUE edema
LUE pain from needlesticks
- Doppler ultrasound negative for DVT, repeat US 02/27 also neg
- Ordered scheduled Tylenol 1000 mg Q8H (which is helping)
Acute on chronic heart failure with preserved ejection fraction
- Cardiology saw patient this hospitalization, continue dialysis as per nephrology
- Dr. Munoz is his manager filter
Troponin elevation
- Suspect acute nonischemic myocardial injury due to septic shock. Troponins trended down.
Permanent atrial fibrillation -
-Continue Heparin Drip. Was on Xarelto prior to admission -- plan to transition back to oral anticoagulation once no further procedures planned
-Outpatient Toprol XL added back on 02/12/25
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
Known moderate nonobstructive coronary disease in 2021
-Continue statin
2 consecutive episodes of VT overnight 02/10/25 to 02/11/25
-Seen by cardiology this admission
- Resumed Toprol XL
Essential hypertension
- Hydralazine resumed 03/01, continue Toprol XL
Hyponatremia
- Resolved.
Hypomagnesemia
- Replete as needed
Hyperphosphatemia
- due to JESUS. Improving. Repeat phosphorus normal.
DM 2 with hyperglycemia -glucoses have improved overnight, 124 this morning, 161 last night.
-At home he was on insulin degludec 24 units at bedtime, NovoLog sliding scale with meals, metformin.
-Hemoglobin A1c 7.1 on 01/13/2025
-Hold metformin 1000 mg daily due to JESUS and lactic acidosis earlier this hospitalization
-Dr. Pathak is his customer strategy manager
-Adjust insulin as needed based on patient's oral intake, currently receiving Lantus 24 units at bedtime, sliding scale insulin
Hyperlipidemia
- Resumed statin
Chronic back pain
-Patient sees a pain management provider outpatient
Obesity due to excess calories
DVT Prophylaxis: Heparin Drip.
Code Status: Full code
Dispo - acute rehab when medically stable, he has been accepted to [facility]
Updated on phone 02/28
Updated daughter at bedside 03/01
Total time spent to see the patient on the floor, examine the patient, review data and lab results, discuss treatment plan with patient, nursing staff around 50 minutes.
Physical Exam
General: Appears less tired, no acute distress
HEENT: Normocephalic, Atraumatic, EOMI, MMM
Respiratory: Clear to Auscultation bilaterally
Cardiac: Normal S1/S2, Regular Rate and Rhythm
GI: Soft, tender at the right upper quadrant, Nondistended, Normal Bowel Sounds
Biliary drain in place
Extremities: No Clubbing, Cyanosis
Left foot dressed
LUE edema noted
Neuro: Nonfocal/Grossly Intact
Anticipated Discharge: > 48 hours
Subjective/Interval History
-
Date of Service: March 01, 2025
Patient denies abdominal pain. He denies left foot pain. No chest pain, no shortness of breath. No fever, no vomiting.
Objective Data
-
Labs:
Laboratory Results
03/01/25 03/01/25
06:00 13:00
WBC 8.3
Hgb 7.5 L
Hct 23.7 L
Plt Count 310
APTT 119.5 H Pending
Sodium 139
Potassium 3.7
Chloride 110 H
Carbon Dioxide 23
BUN 16
Creatinine 1.3
Glucose 144 H
Calcium 8.5
Vital Signs:
Vital Signs
Temp Pulse Resp BP Pulse Ox
97.8 F 63 16 174/59 98
03/01/25 07:42 03/01/25 06:01 03/01/25 06:00 03/01/25 06:01 02/28/25 23:21
I&O
02/28/25 03/01/25 03/02/25
06:59 06:59 06:59
Intake Total 2410 / 2410 480 / 480
Output Total 830 / 830 1720 / 1720 450 / 450
Balance -830 / -830 690 / 690
[2025-03-01] MEDS: CARAFATE SUSPENSION PO ×2 (12:03→16:10)
[2025-03-01 13:06] LABS: Glucose - Point of Care 132 mg/dl (70-99)
[2025-03-01] MEDS: CUBICIN 16 MG IV (13:30)
[2025-03-01 14:03] LABS: APTT 123.8 Sec (23.4-35.0)
[2025-03-01] MEDS: TYLENOL PO (16:10)
[2025-03-01] MEDS: LIPITOR 10 MG PO (18:28)
[2025-03-01 18:40] LABS: Glucose - Point of Care 132 mg/dl (70-99)
[2025-03-01] MEDS: AUGMENTIN 875 MG/125 MG 1 TABLET PO (21:38)
[2025-03-01] MEDS: REMOVE LIDOCAINE PATCH REMOVE (21:38)
[2025-03-01] MEDS: LANTUS 0.24 UNITS SC (22:20)
[2025-03-01 22:23] LABS: Glucose - Point of Care 166 mg/dl (70-99)
[2025-03-01 22:43] LABS: APTT 80.3 Sec (23.4-35.0)
[2025-03-02] VITALS (14 sets, daily range): BP systolic 150–202; BP diastolic 62–103; BMI 31.2
--- NOTE | 2025-03-02 02:22 | PTCARENOTE ---
Patient AAOx3, states he feels 'tired' tonight. Pt c/o 'shooting' pain near Cholecystostomy drain. Drain irrigated with no issues. Drain is patent. CAPRICE Peters notified, gave the OK to redress site using saline, 4x4 gauze, and ABD. Sutures intact
skin is clean, dry, and intact, slight bruising. Pt has been refusing scheduled Tylenol, however requesting to take it. See MAR. A-fib on the monitor. BPs still remain on the higher side. Pt did receive dose of Hydralazine. Heparin gtt cont. See
worklist. IVF cont. Pt tolerating frequent turning and repositioning. Call cervantes within reach.
[2025-03-02] MEDS: NSS 1000 IV (03:20)
[2025-03-02 04:48] LABS: Hematocrit 24.2 % (39.0-52.0); Hemoglobin 7.8 g/dL (13.0-18.0); Mean Corp Hgb Conc. 32.2 g/dL (33.0-37.0); Mean Corpuscular Volume 89.3 fL (80.0-94.0); Platelet Count 311 10^3/uL (130-400); Red Cell Dist. Width 15.0 % (11.5-14.5)
[2025-03-02 05:45] LABS: Blood Urea Nitrogen 13 mg/dl (9-20); Calcium 8.6 mg/dl (8.4-10.2); Carbon Dioxide 23 mmol/L (22-30); Chloride 111 mmol/L (98-107); Estimated Creatinine Clearance 58 ml/min; Glucose 92 mg/dl (70-99); Potassium 3.8 mmol/L (3.5-5.1); Sodium 138 mmol/L (135-145); eGFR > 60.00
[2025-03-02 05:49] LABS: APTT 96.3 Sec (23.4-35.0)
[2025-03-02] MEDS: CARAFATE SUSPENSION PO ×3 (09:04→22:09)
[2025-03-02] MEDS: NOVOLOG FLEXPEN-LOW RESISTANCE SC ×3 (09:04→17:34)
[2025-03-02] MEDS: VISBIOME 2 CAP PO (09:05)
[2025-03-02] MEDS: PROTONIX 40 MG PO ×2 (09:05→20:30)
[2025-03-02] MEDS: APRESOLINE 25 MG PO (09:06)
[2025-03-02] MEDS: AUGMENTIN 875 MG/125 MG 1 TABLET PO ×2 (09:07→20:30)
[2025-03-02] MEDS: LIDOCAINE 4% PATCH TOPICAL (09:07)
[2025-03-02] MEDS: DESENEX/MITRAZOL/ZEASORB 1 APPLIC TOPICAL ×2 (09:07→20:31)
[2025-03-02] MEDS: TOPROL XL 25 MG PO ×2 (09:09→20:30)
[2025-03-02] MEDS: TYLENOL PO (09:09)
--- NOTE | 2025-03-02 09:16 | W.PN.HOSP.TC ---
Today's Communication/Plan
-
see bold
Assessment / Plan
Assessment / Plan
Septic shock - due to to left fifth metatarsal abscess, acute osteomyelitis. Sepsis and shock resolved.
Chronic left lower extremity weakness due to back injury during procedure 2019
-Appreciate ID input, continue IV daptomycin through 03/16/2025 for 6 weeks
-Shock resolved. Off vasopressors. Blood cultures negative so far. Wound culture shows MRSA.
-Leukocytosis improved overall. Afebrile.
-Unable to have MRI due to spinal stimulator not active
-Wound culture grew MRSA
-Patient underwent left partial fifth ray amputation 02/03. Path report from 02/04 shows focal acute osteomyelitis
-Bone culture of the proximal margin 5th metatarsal was positive for osteomyelitis
-Podiatry plans for repeat debridement of soft tissue and bone prior to discharge after revascularization
PAD
-Per patient's , the PAD in his left leg is a lot more severe than his right leg
-CT angiogram done 02/01 shows multifocal atherosclerotic disease throughout the bilateral lower extremities. Diminished flow in the left anterior tibial artery with some apparent distal reconstitution, diminished flow at the distal aspect of the
left peroneal artery at the level of the ankle. Short segment high-grade stenosis of the distal right SFA.
-Vascular surgery has been having ongoing discussions with family regarding goals of care and decision for left lower extremity revascularization with potential risk for further renal deterioration.
-Discussed with vascular surgery, plan for angiogram possibly Sunday 03/04 versus Wednesday 03/07
Acute kidney injury
- due to septic shock. Anuric. Gonzalez catheter was placed. Etiology of JESUS most likely due to septic shock and medications and less likely due to contrast-induced nephropathy as contrast exposure was on 02/01, creatinine was 3.3 morning of 02/01.
-Appreciate nephrology input, dialysis started 02/02. Dialysis IJ catheter was placed.
-High anion gap metabolic acidosis due to septic shock, lactic acidosis. Metabolic acidosis resolved. Off sodium bicarbonate IV.
-Hold metformin, lisinopril, hydrochlorothiazide, trend creatinine, no nephrotoxic drugs or NSAIDs
-Last dialyzed 02/22. Patient currently having renal recovery, nephrology to monitor and determine any further needs for dialysis
-Cr now normal, cleared by nephrology to have his angiogram early next week
Sepsis without septic shock
Acute cholecystitis
-With fever and leukocytosis on 02/23
-Appreciate general surgery input, recommend biliary drain since patient is high risk for surgical intervention
-Status post percutaneous cholecystostomy tube 02/24 with IR, cx neg
-Resolving status post IV Zosyn, ID recommends augmentin 500 mg twice daily through 03/06/25
-Lactic acid normal, off Levophed 02/25
-Needs outpatient follow-up with Dr. Bernabe Juarez
Ileus -resolved. Did have some abdominal pain overnight and was treated with morphine. Obstruction series ordered, report pending. Bowels are moving however.
- developed nausea and vomiting on 02/03. Briefly treated with NG tube.
- Repeat x-ray 02/07 showed air throughout the small bowel, few loops borderline prominent, nonspecific air-fluid levels, most likely ileus. No free air.
- Held narcotics/IV Dilaudid prn (started Tylenol for pain control instead)
- Patient having bowel movements
- Repeat x-ray from 02/12/25 was okay
Lactic acidosis due to sepsis/shock - normalized.
-Differential diagnosis include metformin induced versus worsening sepsis
-Metformin discontinued 02/01
-MAP has been consistently greater than 65
Aspiration pneumonitis/acute hypoxic respiratory failure - triggered by vomiting, possibly triggered by ileus. Oxygenation improved, now on room air.
Acute TME - due to sepsis, shock, critical illness. Mental status much improved and now at baseline.
Odynophagia secondary to Severe Esophagitis found on EGD 02/13/25
Poor PO Intake Secondary to Above
-GI performed EGD on 02/13/25: showed severe esophagitis
Path report shows acute ulcerative esophagitis, immunohistochemical stains negative for HSV 1 and 2, CMV. No fungal organisms identified.
-Continue PPI BID and Carafate
-On discharge cont Protonix PO BID x 4 weeks then daily and carafate AC and HS with wean to BID in 2 weeks then daily x 2 weeks then stop
Acute GI bleed/acute esophagitis -GI bleed resolved. Stools have been brown.
EGD performed 02/13 shows LA grade D reflux esophagitis without bleeding. Normal stomach, normal duodenum. Dobbhoff tube clogged as per nursing. Now that patient tolerating soft diet can DC Dobbhoff tube.
-Acute GI bleed exacerbated by anticoagulation with IV heparin.
-Continue PPI twice daily and Carafate.
Acute blood loss anemia mixed with anemia of renal failure and sepsis
-Due to GI bleed as above. Admission hemoglobin was 11.6. May have baseline chronic anemia of unclear etiology.
Suspect component of anemia related to critical illness as well as renal failure.
- 02/26, hemoglobin down to 6.5, CT without contrast negative for intraperitoneal bleed, stools are brown
- Hemoglobin improved to 7.7 status post 1 unit packed red blood cells 02/26
- Hemoglobin has been stable, continue to trend and transfuse for hemoglobin less than 7.0
Nonblanching skin lesions -unclear if vasculitis, possibly due to vancomycin. Not truly palpable purpura. Now off vancomycin and on daptomycin per ID.
Hypokalemia -replete as needed
Mild Hematuria -- RESOLVED
- Noted on 02/12/25, later resolved while on Heparin Drip
- Monitor for now
LUE edema
LUE pain from needlesticks
- Doppler ultrasound negative for DVT, repeat US 02/27 also neg
- Ordered scheduled Tylenol 1000 mg Q8H (which is helping)
Acute on chronic heart failure with preserved ejection fraction
- Cardiology saw patient this hospitalization, continue dialysis as per nephrology
- Dr. Munoz is his grid molder
Troponin elevation
- Suspect acute nonischemic myocardial injury due to septic shock. Troponins trended down.
Permanent atrial fibrillation -
-Continue Heparin Drip. Was on Xarelto prior to admission -- plan to transition back to oral anticoagulation once no further procedures planned
-Outpatient Toprol XL added back on 02/12/25
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
Known moderate nonobstructive coronary disease in 2021
-Continue statin
2 consecutive episodes of VT overnight 02/10/25 to 02/11/25
-Seen by cardiology this admission
- Resumed Toprol XL
Essential hypertension
-Increase hydralazine to 50 mg 3 times daily� titrate as needed
-Start amlodipine 5 mg daily�titrate as needed
-Continue Toprol XL
Hyponatremia
- Resolved.
Hypomagnesemia
- Replete as needed
Hyperphosphatemia
- due to JESUS. Improving. Repeat phosphorus normal.
DM 2 with hyperglycemia -glucoses have improved overnight, 124 this morning, 161 last night.
-At home he was on insulin degludec 24 units at bedtime, NovoLog sliding scale with meals, metformin.
-Hemoglobin A1c 7.1 on 01/13/2025
-Hold metformin 1000 mg daily due to JESUS and lactic acidosis earlier this hospitalization
-Dr. Pathak is his fitness coordinator
-Adjust insulin as needed based on patient's oral intake, currently receiving Lantus 24 units at bedtime, sliding scale insulin
Hyperlipidemia
- Resumed statin
Chronic back pain
-Patient sees a pain management provider outpatient
Obesity due to excess calories
DVT Prophylaxis: Heparin Drip.
Code Status: Full code
Dispo - acute rehab when medically stable, he has been accepted to [facility]
Updated on phone 02/28
Updated daughter at bedside 03/01, 03/02
Total time spent to see the patient on the floor, examine the patient, review data and lab results, discuss treatment plan with patient, nursing staff around 51 minutes.
Physical Exam
General: Appears less tired, no acute distress
HEENT: Normocephalic, Atraumatic, EOMI, MMM
Respiratory: Clear to Auscultation bilaterally
Cardiac: Normal S1/S2, Regular Rate and Rhythm
GI: Soft, tender at the right upper quadrant, Nondistended, Normal Bowel Sounds
Biliary drain in place
Extremities: No Clubbing, Cyanosis
Left foot dressed
LUE edema noted
Neuro: Nonfocal/Grossly Intact
Anticipated Discharge: > 48 hours
Subjective/Interval History
-
Date of Service: March 02, 2025
Patient feels more tired today. He denies abdominal pain. He denies left foot pain. No chest pain, no shortness of breath. He is having 5 soft BM's a day. No fever, no vomiting.
Objective Data
-
Labs:
Laboratory Results
03/01/25 03/02/25 03/02/25
22:19 04:34 05:11
WBC 9.3
Hgb 7.8 L
Hct 24.2 L
Plt Count 311
APTT 80.3 H Cancelled 96.3 H
Sodium 138
Potassium 3.8
Chloride 111 H
Carbon Dioxide 23
BUN 13
Creatinine 1.2
Glucose 92
Calcium 8.6
Vital Signs:
Vital Signs
Temp Pulse Resp BP Pulse Ox
98.1 F 63 14 155/70 98
03/02/25 03:00 03/02/25 06:00 03/02/25 06:00 03/02/25 04:44 03/02/25 02:19
I&O
03/01/25 03/02/25 03/03/25
06:59 06:59 06:59
Intake Total 2410 / 2410 490 / 490
Output Total 1720 / 1720 1210 / 1210
Balance 690 / 690 -720 / -720
[2025-03-02 09:18] LABS: Glucose - Point of Care 61 mg/dl (70-99)
[2025-03-02 09:37] LABS: Glucose - Point of Care 59 mg/dl (70-99)
[2025-03-02 10:01] LABS: Glucose - Point of Care 72 mg/dl (70-99)
--- NOTE | 2025-03-02 10:36 | W.PN.NEPH.PH ---
Today's Communication / Plan
-
Creatinine improved to 1.2
Hydralazine escalated to 50 mg 3 times daily by primary team
Will add low-dose Procardia if needed for continued hypertension control as lisinopril remains held till after angiogram
Assessment/Plan
-
IMP:
TME
Septic shock
Lactic acidosis
Sepsis 2/2 to Diabetic left foot cellulitis w/ lymphangitis
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
Acute kidney injury-baseline cr 0.9-1.1
Peripheral artery disease
hyponatremia
IDDM 2
Essential hypertension
Constipation
A-fib�permanent
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
HLD
Obesity due to excess calories
cholecystitis status post cholecystotomy tube
Plan:
Adding back hydralazine 25 mg twice daily for hypertension, increased to 50mg TID, HERMELINDO still held in setting of acute kidney injury which continues to improve
Will likely Procardia if blood pressure remains elevated
Creatinine improved 1.2 nonoliguric
No acute need for dialysis
PermCath take it out Monday
Currently now optimized for angiogram when needed from renal perspective but will require contrast prophylaxis
-
-
Date of Service: March 02, 2025
CC / HPI / ROS
-
Chief Complaint:
JESUS
History of Present Illness:
JESUS/HD
JESUS/Cr down to 1.2
Cholecystotomy tube placed with good drainage 02/24/25
Remains hypertensive on hydralazine and metoprolol
Review of Systems:
Nonoliguric
no cp or sob noted
no fever
Labs
-
Labs:
WBC 9.3 10^3/uL (4.8-10.8) 03/02/25 04:34
RBC 2.71 10^6/uL (4.70-6.10) L 03/02/25 04:34
Hgb 7.8 g/dL (13.0-18.0) L 03/02/25 04:34
Hct 24.2 % (39.0-52.0) L 03/02/25 04:34
Plt Count 311 10^3/uL (130-400) 03/02/25 04:34
Sodium 138 mmol/L (135-145) 03/02/25 04:34
Potassium 3.8 mmol/L (3.5-5.1) 03/02/25 04:34
Chloride 111 mmol/L (98-107) H 03/02/25 04:34
Carbon Dioxide 23 mmol/L (22-30) 03/02/25 04:34
BUN 13 mg/dl (9-20) 03/02/25 04:34
Creatinine 1.2 mg/dL (0.7-1.3) 03/02/25 04:34
eGFR > 60.00 03/02/25 04:34
Glucose 92 mg/dl (70-99) 03/02/25 04:34
Calcium 8.6 mg/dl (8.4-10.2) 03/02/25 04:34
Phosphorus 4.4 mg/dl (2.5-4.5) 02/26/25 03:52
Mhn-C-Puebhyexast Pept > 70173 pg/ml 02/01/25 20:16
Albumin 3.0 g/dl (3.5-5.0) L 02/24/25 04:40
Physical Exam
-
Vital Signs:
Vital Signs
Temp Pulse Resp BP Pulse Ox
98.1 F 95 14 187/103 98
03/02/25 03:00 03/02/25 09:14 03/02/25 09:14 03/02/25 09:14 03/02/25 02:19
Cardiovascular:: Regular rate and rhythm
Respiratory:: Bilateral: CTA
Lung Excursion:: Normal
Abdomen:: Nontender and Soft
Bowel Sounds:: Normal
Extremity Edema:: None: Bilateral:
[2025-03-02] MEDS: APRESOLINE 50 MG PO ×3 (10:41→22:09)
[2025-03-02] MEDS: HEPARIN 25000 UNITS/250 ML IV ×2 (10:42→23:06)
--- NOTE | 2025-03-02 13:27 | PTCARENOTE ---
pt w/ multiple loose BM throughout this shift. RN commnicated pt daughters concerns to Dr. Archer regarding the multiple loose stools. Stool sample sent to lab for cdiff test per MD order.
[2025-03-02 13:28] LABS: Glucose - Point of Care 121 mg/dl (70-99)
--- NOTE | 2025-03-02 13:32 | PTCARENOTE ---
stool specimen negative for Cdiff. Updated pt and daughter.
[2025-03-02] MEDS: CUBICIN 16 MG IV (14:25)
[2025-03-02] MEDS: TYLENOL 975 MG PO ×2 (16:36→22:08)
[2025-03-02] MEDS: CARAFATE SUSPENSION 1 GM PO (16:37)
[2025-03-02] MEDS: NORVASC 5 MG PO (16:39)
[2025-03-02 17:39] LABS: Glucose - Point of Care 126 mg/dl (70-99)
[2025-03-02] MEDS: LIPITOR 10 MG PO (18:09)
--- NOTE | 2025-03-02 20:00 | PTCARENOTE ---
Patient received in bed, AAOX3, flat affect. Afib on monitor, afebrile, blood pressure as documented. Weak but palpable pulses throughout. +1 edema to upper extremities. Lungs diminished, pulse ox 94% on room air. Abdomen soft with hypoactive
bowel sounds. Poor appetite noted. voids using urinal. Right giacomo drain noted, draining brown. left foot dressing intact. RD PICC with Heparin gtt infusing as documented. Family at bedside, call cervantes within reach
[2025-03-02] MEDS: REMOVE LIDOCAINE PATCH REMOVE (20:30)
[2025-03-02 21:41] LABS: Glucose - Point of Care 131 mg/dl (70-99)
[2025-03-02] MEDS: LANTUS SC (23:07)
[2025-03-02] MEDS: LANTUS 0.12 UNITS SC (23:22)
[2025-03-03] VITALS (13 sets, daily range): BP systolic 94–179; BP diastolic 50–98; BMI 30.3
[2025-03-03 03:17] LABS: Glucose - Point of Care 127 mg/dl (70-99)
[2025-03-03 04:59] LABS: Hematocrit 26.6 % (39.0-52.0); Hemoglobin 8.4 g/dL (13.0-18.0); Mean Corp Hgb Conc. 31.6 g/dL (33.0-37.0); Mean Corpuscular Volume 91.7 fL (80.0-94.0); Platelet Count 360 10^3/uL (130-400); Red Cell Dist. Width 15.3 % (11.5-14.5)
[2025-03-03 05:13] LABS: APTT 148.2 Sec (23.4-35.0)
[2025-03-03 05:52] LABS: Blood Urea Nitrogen 11 mg/dl (9-20); Calcium 8.9 mg/dl (8.4-10.2); Carbon Dioxide 23 mmol/L (22-30); Chloride 110 mmol/L (98-107); Estimated Creatinine Clearance 62 ml/min; Glucose 136 mg/dl (70-99); Potassium 4.0 mmol/L (3.5-5.1); Sodium 138 mmol/L (135-145); eGFR > 60.00
--- NOTE | 2025-03-03 07:48 | W.PN.HOSP.TC ---
Addendum entered and electronically signed by Jed Bravo DO 03/03/25 09:08:
Updated patient's on the phone.
Original Note:
Today's Communication/Plan
-
continue current care
Assessment / Plan
Assessment / Plan
Gen-AAOx3, NAD
HEENT-NC, AT, anicteric, clear oral mm
Neck-supple
CV-reg, no M, +S1/S2
Lungs-clear B/L
Abd-soft, NT, ND, right upper quadrant drain intact
Ext-LUE edema
Musculoskeletal-no cyanosis, clubbing, left foot dressing
Skin-warm and dry
Neuro-grossly non-focal
Psych-calm, cooperative
Septic shock - due to to left fifth metatarsal abscess, acute osteomyelitis. Sepsis and shock resolved.
Chronic left lower extremity weakness due to back injury during procedure 2019
-Appreciate ID input, continue IV daptomycin through 03/16/2025 for 6 weeks
-Shock resolved. Off vasopressors. Blood cultures negative so far. Wound culture shows MRSA.
-Leukocytosis improved overall. Afebrile.
-Unable to have MRI due to spinal stimulator not active
-Wound culture grew MRSA
-Patient underwent left partial fifth ray amputation 02/03. Path report from 02/04 shows focal acute osteomyelitis
-Bone culture of the proximal margin 5th metatarsal was positive for osteomyelitis
-Podiatry plans for repeat debridement of soft tissue and bone prior to discharge after revascularization
PAD
-Per patient's , the PAD in his left leg is a lot more severe than his right leg
-CT angiogram done 02/01 shows multifocal atherosclerotic disease throughout the bilateral lower extremities. Diminished flow in the left anterior tibial artery with some apparent distal reconstitution, diminished flow at the distal aspect of the
left peroneal artery at the level of the ankle. Short segment high-grade stenosis of the distal right SFA.
-Vascular surgery has been having ongoing discussions with family regarding goals of care and decision for left lower extremity revascularization with potential risk for further renal deterioration.
-Discussed with vascular surgery, plan for angiogram possibly Sunday 03/04 versus Wednesday 03/07
Acute kidney injury
- due to septic shock. Anuric. Gonzalez catheter was placed. Etiology of JESUS most likely due to septic shock and medications and less likely due to contrast-induced nephropathy as contrast exposure was on 02/01, creatinine was 3.3 morning of 02/01.
-Appreciate nephrology input, dialysis started 02/02. Dialysis IJ catheter was placed.
-High anion gap metabolic acidosis due to septic shock, lactic acidosis. Metabolic acidosis resolved. Off sodium bicarbonate IV.
-Hold metformin, lisinopril, hydrochlorothiazide, trend creatinine, no nephrotoxic drugs or NSAIDs
-Last dialyzed 02/22. Patient currently having renal recovery, nephrology to monitor and determine any further needs for dialysis
-Cr now normal, cleared by nephrology to have his angiogram early next week
Sepsis without septic shock
Acute cholecystitis
-With fever and leukocytosis on 02/23
-Appreciate general surgery input, recommend biliary drain since patient is high risk for surgical intervention
-Status post percutaneous cholecystostomy tube 02/24 with IR, cx neg
-Resolving status post IV Zosyn, ID recommends augmentin 500 mg twice daily through 03/06/25
-Lactic acid normal, off Levophed 02/25
-Needs outpatient follow-up with Dr. Bernabe Juarez
Ileus -resolved. Did have some abdominal pain overnight and was treated with morphine. Obstruction series ordered, report pending. Bowels are moving however.
- developed nausea and vomiting on 02/03. Briefly treated with NG tube.
- Repeat x-ray 02/07 showed air throughout the small bowel, few loops borderline prominent, nonspecific air-fluid levels, most likely ileus. No free air.
- Held narcotics/IV Dilaudid prn (started Tylenol for pain control instead)
- Patient having bowel movements
- Repeat x-ray from 02/12/25 was okay
Acute diarrhea -likely due to Augmentin use. Will defer to ID. Doubt C. difficile infection. Not pure water.
Lactic acidosis due to sepsis/shock - normalized.
-Differential diagnosis include metformin induced versus worsening sepsis
-Metformin discontinued 02/01
-MAP has been consistently greater than 65
Aspiration pneumonitis/acute hypoxic respiratory failure - triggered by vomiting, possibly triggered by ileus. Oxygenation improved, now on room air.
Acute TME - due to sepsis, shock, critical illness. Mental status much improved and now at baseline.
Odynophagia secondary to Severe Esophagitis found on EGD 02/13/25
Poor PO Intake Secondary to Above
-GI performed EGD on 02/13/25: showed severe esophagitis
Path report shows acute ulcerative esophagitis, immunohistochemical stains negative for HSV 1 and 2, CMV. No fungal organisms identified.
-Continue PPI BID and Carafate
-On discharge cont Protonix PO BID x 4 weeks then daily and carafate AC and HS with wean to BID in 2 weeks then daily x 2 weeks then stop
Acute GI bleed/acute esophagitis -GI bleed resolved. Stools have been brown.
EGD performed 02/13 shows LA grade D reflux esophagitis without bleeding. Normal stomach, normal duodenum. Dobbhoff tube clogged as per nursing. Now that patient tolerating soft diet can DC Dobbhoff tube.
-Acute GI bleed exacerbated by anticoagulation with IV heparin.
-Continue PPI twice daily and Carafate.
Acute blood loss anemia mixed with anemia of renal failure and sepsis
-Due to GI bleed as above. Admission hemoglobin was 11.6. May have baseline chronic anemia of unclear etiology.
Suspect component of anemia related to critical illness as well as renal failure.
- 02/26, hemoglobin down to 6.5, CT without contrast negative for intraperitoneal bleed, stools are brown
- Hemoglobin improved to 7.7 status post 1 unit packed red blood cells 02/26
- Hemoglobin has been stable, continue to trend and transfuse for hemoglobin less than 7.0
Nonblanching skin lesions -unclear if vasculitis, possibly due to vancomycin. Not truly palpable purpura. Now off vancomycin and on daptomycin per ID.
Hypokalemia -replete as needed
Mild Hematuria -- RESOLVED
- Noted on 02/12/25, later resolved while on Heparin Drip
- Monitor for now
LUE edema
LUE pain from needlesticks
- Doppler ultrasound negative for DVT, repeat US 02/27 also neg
- Ordered scheduled Tylenol 1000 mg Q8H (which is helping)
Acute on chronic heart failure with preserved ejection fraction
- Cardiology saw patient this hospitalization, continue dialysis as per nephrology
- Dr. Munoz is his forest management professor
Troponin elevation
- Suspect acute nonischemic myocardial injury due to septic shock. Troponins trended down.
Permanent atrial fibrillation -
-Continue Heparin Drip. Was on Xarelto prior to admission -- plan to transition back to oral anticoagulation once no further procedures planned
-Outpatient Toprol XL added back on 02/12/25
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
Known moderate nonobstructive coronary disease in 2021
-Continue statin
2 consecutive episodes of VT overnight 02/10/25 to 02/11/25
-Seen by cardiology this admission
- Resumed Toprol XL
Essential hypertension
-Increase hydralazine to 50 mg 3 times daily� titrate as needed
-Start amlodipine 5 mg daily�titrate as needed
-Continue Toprol XL
Hyponatremia
- Resolved.
Hypomagnesemia
- Replete as needed
Hyperphosphatemia
- due to JESUS. Improving. Repeat phosphorus normal.
DM 2 with hyperglycemia -glucoses have improved overnight, 136 this morning, 131 last night.
-At home he was on insulin degludec 24 units at bedtime, NovoLog sliding scale with meals, metformin.
-Hemoglobin A1c 7.1 on 01/13/2025
-Hold metformin 1000 mg daily due to JESUS and lactic acidosis earlier this hospitalization
-Dr. 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
Lantus reduced to 12 units at bedtime, continue low resistance NovoLog scale.
Hyperlipidemia
- Resumed statin
Chronic back pain
-Patient sees a pain management provider outpatient
Obesity due to excess calories
DVT Prophylaxis: Heparin Drip.
Code Status: Full code
Dispo - acute rehab when medically stable, he has been accepted to [facility].
Anticipated Discharge: > 48 hours
Subjective/Interval History
-
Date of Service: March 03, 2025
Patient seen and examined, complaining of loose stools.
Objective Data
-
Labs:
Laboratory Results
03/03/25 03/03/25 03/03/25
04:28 04:31 12:30
WBC 11.9 H
Hgb 8.4 L
Hct 26.6 L
Plt Count 360
APTT 148.2 H Pending
Sodium 138
Potassium 4.0
Chloride 110 H
Carbon Dioxide 23
BUN 11
Creatinine 1.1
Glucose 136 H
Calcium 8.9
Vital Signs:
Vital Signs
Temp Pulse Resp BP Pulse Ox
97.5 F 92 19 179/98 94
03/03/25 07:00 03/03/25 04:00 03/03/25 04:00 03/03/25 04:00 03/03/25 04:00
I&O
03/02/25 03/03/25 03/04/25
06:59 06:59 06:59
Intake Total 490 / 490 252 / 252
Output Total 1210 / 1210 850 / 850
Balance -720 / -720 -598 / -598
Review of Systems
-
History Source: Patient
All other systems: Reviewed and negative
[2025-03-03 07:54] LABS: Glucose - Point of Care 132 mg/dl (70-99)
[2025-03-03] MEDS: CARAFATE SUSPENSION PO ×4 (08:24→20:50)
[2025-03-03] MEDS: NOVOLOG FLEXPEN-LOW RESISTANCE SC (08:24)
[2025-03-03] MEDS: NORVASC 5 MG PO (08:25)
[2025-03-03] MEDS: LIDOCAINE 4% PATCH TOPICAL (08:25)
[2025-03-03] MEDS: PROTONIX 40 MG PO ×2 (08:26→21:17)
[2025-03-03] MEDS: TOPROL XL 25 MG PO (08:26)
[2025-03-03] MEDS: TYLENOL 975 MG PO ×3 (08:26→21:17)
[2025-03-03] MEDS: VISBIOME 2 CAP PO (08:26)
[2025-03-03] MEDS: APRESOLINE 50 MG PO ×2 (08:26→16:47)
[2025-03-03] MEDS: DESENEX/MITRAZOL/ZEASORB 1 APPLIC TOPICAL ×2 (08:27→21:18)
[2025-03-03] MEDS: AUGMENTIN 875 MG/125 MG PO ×2 (08:27→20:50)
--- NOTE | 2025-03-03 08:52 | PTCARENOTE ---
Addendum entered by Paula Moreno RN 03/03/25 08:56:
Heparin infusing at 1900 units/hr; repeat PTT scheduled for 12:30.
Original Note:
Assumed care of patient at beginning of this shift from previous RN. Patient Ox3 with flat affect; he did not want breakfast ordered this morning despite encouragement/education on importance of good nutrition. He did allow me to open window shade.
Patient refused lidoderm patch and carafate; he also refused augmentin this morning and would like to discuss with ID when they round. He took meds in applesauce without difficulty; able to swallow water without difficulty. +2 edema continues to
SAMANTA; trace general; see worklist for full assessment and vital signs.
[2025-03-03] MEDS: IMODIUM 2 MG PO (09:26)
--- NOTE | 2025-03-03 09:32 | PTCARENOTE ---
Daughter in and requesting to speak with physician. TT sent to Dr Bravo who requested extension into room. Daughter then asked that he speak with her mother. TT sent to Dr Bravo providing name and number of . Dr Bravo then notified this RN
that immodium was ordered and to give to patient; med given and patient/daughter updated.
--- NOTE | 2025-03-03 10:27 | W.PN.NEPH.PH ---
Today's Communication / Plan
-
Will add Procardia 30 mg qhs
Removal of dialysis catheter
Assessment/Plan
-
IMP:
TME
Septic shock
Lactic acidosis
Sepsis 2/2 to Diabetic left foot cellulitis w/ lymphangitis
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
Acute kidney injury-baseline cr 0.9-1.1
Peripheral artery disease
hyponatremia
IDDM 2
Essential hypertension
Constipation
A-fib�permanent
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
HLD
Obesity due to excess calories
cholecystitis status post cholecystotomy tube
Plan:
Remains on daptomycin
Add Procardia 30 mg qhs in addition to hydralazine and metoprolol
Creatinine improved 1.1 nonoliguric
No acute need for dialysis
PermCath take it out Monday
Currently now optimized for angiogram when needed from renal perspective but will require contrast prophylaxis
-
-
Date of Service: March 03, 2025
CC / HPI / ROS
-
Chief Complaint:
JESUS
History of Present Illness:
JESUS/HD
JESUS/Cr down to 1.1
Cholecystotomy tube placed with good drainage 02/24/25
Remains hypertensive on hydralazine and metoprolol
Review of Systems:
Nonoliguric
no cp or sob noted
no fever
Labs
-
Labs:
WBC 11.9 10^3/uL (4.8-10.8) H 03/03/25 04:28
RBC 2.90 10^6/uL (4.70-6.10) L 03/03/25 04:28
Hgb 8.4 g/dL (13.0-18.0) L 03/03/25 04:28
Hct 26.6 % (39.0-52.0) L 03/03/25 04:28
Plt Count 360 10^3/uL (130-400) 03/03/25 04:28
Sodium 138 mmol/L (135-145) 03/03/25 04:28
Potassium 4.0 mmol/L (3.5-5.1) 03/03/25 04:28
Chloride 110 mmol/L (98-107) H 03/03/25 04:28
Carbon Dioxide 23 mmol/L (22-30) 03/03/25 04:28
BUN 11 mg/dl (9-20) 03/03/25 04:28
Creatinine 1.1 mg/dL (0.7-1.3) 03/03/25 04:28
eGFR > 60.00 03/03/25 04:28
Glucose 136 mg/dl (70-99) H 03/03/25 04:28
Calcium 8.9 mg/dl (8.4-10.2) 03/03/25 04:28
Phosphorus 4.4 mg/dl (2.5-4.5) 02/26/25 03:52
Jcz-T-Nbqbqvpumeq Pept > 19193 pg/ml 02/01/25 20:16
Albumin 3.0 g/dl (3.5-5.0) L 02/24/25 04:40
Physical Exam
-
Vital Signs:
Vital Signs
Temp Pulse Resp BP Pulse Ox
97.5 F 87 19 162/88 94
03/03/25 07:00 03/03/25 08:26 03/03/25 04:00 03/03/25 08:26 03/03/25 04:00
Cardiovascular:: Regular rate and rhythm
Respiratory:: Bilateral: CTA
Lung Excursion:: Normal
Abdomen:: Nontender and Soft
Bowel Sounds:: Normal
Extremity Edema:: None: Bilateral:
Gonzalez Catheter: No
[2025-03-03 11:31] LABS: Glucose - Point of Care 161 mg/dl (70-99)
[2025-03-03] MEDS: NOVOLOG FLEXPEN-LOW RESISTANCE 1 UNITS SC ×2 (13:02→16:47)
[2025-03-03] MEDS: CUBICIN 16 MG IV (13:03)
[2025-03-03] MEDS: HEPARIN 25000 UNITS/250 ML IV (13:10)
[2025-03-03 13:27] LABS: APTT 96.9 Sec (23.4-35.0)
[2025-03-03 16:59] LABS: Glucose - Point of Care 163 mg/dl (70-99)
[2025-03-03] MEDS: PROCARDIA XL (EXTENDED RELEASE) 30 MG PO (17:57)
[2025-03-03] MEDS: LIPITOR 10 MG PO (17:57)
[2025-03-03] MEDS: TOPROL XL PO (20:50)
[2025-03-03] MEDS: REMOVE LIDOCAINE PATCH REMOVE (21:18)
[2025-03-03 21:29] LABS: APTT 110.0 Sec (23.4-35.0)
[2025-03-03] MEDS: LANTUS 0.12 UNITS SC (21:42)
[2025-03-03 21:53] LABS: Glucose - Point of Care 210 mg/dl (70-99)
[2025-03-03] MEDS: APRESOLINE PO (22:11)
[2025-03-04] VITALS (19 sets, daily range): BP systolic 20–180; BP diastolic 64–85; BMI 30.6
[2025-03-04] MEDS: HEPARIN 25000 UNITS/250 ML IV (01:45)
--- NOTE | 2025-03-04 06:30 | PTCARENOTE ---
Addendum entered by Claudio Adames RN 03/04/25 06:37:
Sp02 88-89% on RA. Encouraged deep breathing, no change in Sp02. Placed on 2L NC, Sp02 94-97%.
Original Note:
Patient extremely flat and withdrawn; responds with one word answers. answers some some questions for him when RN is attempting to interact with patient. Refused PO Augmentin and carafate. Repositioning provided as patient allowed. Refusing
turns. Heels floated on pillow. Pt refusing air fiber boots as he states it restricts his feet movement. LLE dressing intact. Afib on the phototypesetting equipment monitor. BP soft at start of shift; held BP meds per parameters. Able to swallow pills whole with
applesauce. Zero output from biliary drain; small brown fluid in bag. No BM. Urinal at bedside. PICC line dressing intact to RUE; +blood return x2. Heparin gtt infusing per the worklist/AUG. Titrating per protocol. Right chest HD cath dressing
intact. CHG done this morning. Denies any pain. Call cervantes and tray table within reach. Pt calls appropriately for assistance. Warm blankets provided.
[2025-03-04 06:42] LABS: Hematocrit 25.9 % (39.0-52.0); Hemoglobin 8.2 g/dL (13.0-18.0); Mean Corp Hgb Conc. 31.7 g/dL (33.0-37.0); Mean Corpuscular Volume 90.2 fL (80.0-94.0); Platelet Count 369 10^3/uL (130-400); Red Cell Dist. Width 15.6 % (11.5-14.5)
[2025-03-04 06:45] LABS: APTT 125.6 Sec (23.4-35.0)
[2025-03-04 07:06] LABS: Blood Urea Nitrogen 12 mg/dl (9-20); Calcium 8.5 mg/dl (8.4-10.2); Carbon Dioxide 22 mmol/L (22-30); Chloride 108 mmol/L (98-107); Estimated Creatinine Clearance 63 ml/min; Glucose 138 mg/dl (70-99); Potassium 4.1 mmol/L (3.5-5.1); Sodium 137 mmol/L (135-145); eGFR > 60.00
--- NOTE | 2025-03-04 07:23 | PTCARENOTE ---
Addendum entered by Paula Moreno RN 03/04/25 11:20:
Dr Gonzalez up to speak with patient in room and on speaker phone.
Addendum entered by Paula Moreno RN 03/04/25 08:20:
Patient NPO except meds. Reviewed with Angella Lomax that patient takes meds crushed in applesauce; ok to give per Angella.
Addendum entered by Paula Moreno RN 03/04/25 08:01:
Patient updated on NPO status and procedure for today. He was very anxious, stating no one has spoke with him or his . TT sent to Angella Lomax who came to speak with patient.
Original Note:
TT received this morning from Angella Lomax NP who instructed to keep patient NPO for angiogram today.
--- NOTE | 2025-03-04 07:37 | W.PN.HOSP.TC ---
Addendum entered and electronically signed by Jed Bravo DO 03/04/25 09:05:
Updated patient's on the phone. All questions answered.
Original Note:
Today's Communication/Plan
-
Angiogram today
Assessment / Plan
Assessment / Plan
Gen-AAOx3, NAD
HEENT-NC, AT, anicteric, clear oral mm
Neck-supple
CV-reg, no M, +S1/S2
Lungs-clear B/L
Abd-soft, NT, ND, right upper quadrant drain intact
Ext-LUE edema
Musculoskeletal-no cyanosis, clubbing, left foot dressing
Skin-warm and dry
Neuro-grossly non-focal
Psych-calm, cooperative
Septic shock - due to to left fifth metatarsal abscess, acute osteomyelitis. Sepsis and shock resolved.
Chronic left lower extremity weakness due to back injury during procedure 2019
-Appreciate ID input, continue IV daptomycin through 03/16/2025 for 6 weeks
-Shock resolved. Off vasopressors. Blood cultures negative so far. Wound culture shows MRSA.
-Leukocytosis improved overall. Afebrile.
-Unable to have MRI due to spinal stimulator not active
-Wound culture grew MRSA
-Patient underwent left partial fifth ray amputation 02/03. Path report from 02/04 shows focal acute osteomyelitis
-Bone culture of the proximal margin 5th metatarsal was positive for osteomyelitis
-Podiatry plans for repeat debridement of soft tissue and bone prior to discharge after revascularization
PAD
-Per patient's , the PAD in his left leg is a lot more severe than his right leg
-CT angiogram done 02/01 shows multifocal atherosclerotic disease throughout the bilateral lower extremities. Diminished flow in the left anterior tibial artery with some apparent distal reconstitution, diminished flow at the distal aspect of the
left peroneal artery at the level of the ankle. Short segment high-grade stenosis of the distal right SFA.
-Vascular surgery has been having ongoing discussions with family regarding goals of care and decision for left lower extremity revascularization with potential risk for further renal deterioration.
Awaiting angiogram today, 03/04.
Acute kidney injury
- due to septic shock. Anuric. Gonzalez catheter was placed. Etiology of JESUS most likely due to septic shock and medications and less likely due to contrast-induced nephropathy as contrast exposure was on 02/01, creatinine was 3.3 morning of 02/01.
-Appreciate nephrology input, dialysis started 02/02. Dialysis IJ catheter was placed.
-High anion gap metabolic acidosis due to septic shock, lactic acidosis. Metabolic acidosis resolved. Off sodium bicarbonate IV.
-Hold metformin, lisinopril, hydrochlorothiazide, trend creatinine, no nephrotoxic drugs or NSAIDs
-Last dialyzed 02/22. Patient currently having renal recovery, nephrology to monitor and determine any further needs for dialysis
Renal function back to baseline, no need for further hemodialysis per nephrology. Dialysis catheter to be removed today, 03/04.
Sepsis without septic shock -sepsis resolved.
Acute cholecystitis
-With fever and leukocytosis on 02/23
-Appreciate general surgery input, recommend biliary drain since patient is high risk for surgical intervention
-Status post percutaneous cholecystostomy tube 02/24 with IR, cx neg
-Resolving status post IV Zosyn, ID recommends augmentin twice daily through 03/06/25
-Lactic acid normal, off Levophed 02/25
-Needs outpatient follow-up with Dr. Bernabe Juarez
Ileus -resolved. Did have some abdominal pain overnight and was treated with morphine. Obstruction series ordered, report pending. Bowels are moving however.
- developed nausea and vomiting on 02/03. Briefly treated with NG tube.
- Repeat x-ray 02/07 showed air throughout the small bowel, few loops borderline prominent, nonspecific air-fluid levels, most likely ileus. No free air.
- Held narcotics/IV Dilaudid prn (started Tylenol for pain control instead)
- Patient having bowel movements
- Repeat x-ray from 02/12/25 was okay
Acute diarrhea -likely due to Augmentin use. Stool C. difficile negative. Diarrhea improved with as needed Imodium.
Lactic acidosis due to sepsis/shock - normalized.
-Differential diagnosis include metformin induced versus worsening sepsis
-Metformin discontinued 02/01
-MAP has been consistently greater than 65
Aspiration pneumonitis/acute hypoxic respiratory failure - triggered by vomiting, possibly triggered by ileus. Placed back on 2 L nasal cannula last night by nursing for pulse ox in the high 80% range. Encourage incentive spirometer.
Acute TME - due to sepsis, shock, critical illness. Mental status much improved and now at baseline.
Odynophagia secondary to Severe Esophagitis found on EGD 02/13/25
Poor PO Intake Secondary to Above
-GI performed EGD on 02/13/25: showed severe esophagitis
Path report shows acute ulcerative esophagitis, immunohistochemical stains negative for HSV 1 and 2, CMV. No fungal organisms identified.
-Continue PPI BID and Carafate
-On discharge cont Protonix PO BID x 4 weeks then daily and carafate AC and HS with wean to BID in 2 weeks then daily x 2 weeks then stop
Acute GI bleed/acute esophagitis -GI bleed resolved. Stools have been brown.
EGD performed 02/13 shows LA grade D reflux esophagitis without bleeding. Normal stomach, normal duodenum. Dobbhoff tube clogged as per nursing. Now that patient tolerating soft diet can DC Dobbhoff tube.
-Acute GI bleed exacerbated by anticoagulation with IV heparin.
-Continue PPI twice daily and Carafate.
Acute blood loss anemia mixed with anemia of renal failure and sepsis
-Due to GI bleed as above. Admission hemoglobin was 11.6. May have baseline chronic anemia of unclear etiology.
Suspect component of anemia related to critical illness as well as renal failure.
- 02/26, hemoglobin down to 6.5, CT without contrast negative for intraperitoneal bleed, stools are brown
Transfused 1 unit of blood on 02/26. Hemoglobin now stable, 8.2.
Nonblanching skin lesions -unclear if vasculitis, possibly due to vancomycin. Not truly palpable purpura. Now off vancomycin and on daptomycin per ID.
Hypokalemia -replete as needed
Mild Hematuria -- RESOLVED
- Noted on 02/12/25, later resolved while on Heparin Drip
- Monitor for now
LUE edema
LUE pain from needlesticks
- Doppler ultrasound negative for DVT, repeat US 02/27 also neg
- Ordered scheduled Tylenol 1000 mg Q8H (which is helping)
Acute on chronic heart failure with preserved ejection fraction
- Cardiology saw patient this hospitalization, continue dialysis as per nephrology
- Dr. Munoz is his employee benefits specialist
Troponin elevation
- Suspect acute nonischemic myocardial injury due to septic shock. Troponins trended down.
Permanent atrial fibrillation -
-Continue Heparin Drip. Was on Xarelto prior to admission -- plan to transition back to oral anticoagulation once no further procedures planned
-Outpatient Toprol XL added back on 02/12/25
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
Known moderate nonobstructive coronary disease in 2021
-Continue statin
2 consecutive episodes of VT overnight 02/10/25 to 02/11/25
-Seen by cardiology this admission
- Resumed Toprol XL
Essential hypertension -hypotensive last night after addition of nifedipine. Stop amlodipine. Blood pressure improved this morning.
Hyponatremia
- Resolved.
Hypomagnesemia
- Replete as needed
Hyperphosphatemia
- due to JESUS. Improving. Repeat phosphorus normal.
DM 2 with hyperglycemia -glucoses have improved overnight, 138 this morning, 210 last night. Most of the daytime glucoses are below 180.
-At home he was on insulin degludec 24 units at bedtime, NovoLog sliding scale with meals, metformin.
-Hemoglobin A1c 7.1 on 01/13/2025
-Hold metformin 1000 mg daily due to JESUS and lactic acidosis earlier this hospitalization
-Dr. Pathak is his electromedical equipment repairer
Continue Lantus 12 units at bedtime, continue low resistance NovoLog scale.
Hyperlipidemia
- Resumed statin
Chronic back pain
-Patient sees a pain management provider outpatient
Obesity due to excess calories
DVT Prophylaxis: Heparin Drip.
Code Status: Full code
Dispo - acute rehab when medically stable, he has been accepted to [facility].
Anticipated Discharge: > 48 hours
Subjective/Interval History
-
Date of Service: March 04, 2025
Patient seen and examined. No complaints. States diarrhea has resolved.
Objective Data
-
Labs:
Laboratory Results
03/03/25 03/04/25 03/04/25
21:12 06:22 13:15
WBC 9.8
Hgb 8.2 L
Hct 25.9 L
Plt Count 369
APTT 110.0 H 125.6 H Pending
Sodium 137
Potassium 4.1
Chloride 108 H
Carbon Dioxide 22
BUN 12
Creatinine 1.1
Glucose 138 H
Calcium 8.5
Vital Signs:
Vital Signs
Temp Pulse Resp BP Pulse Ox
97.7 F 81 14 130/76 97
03/04/25 03:10 03/04/25 06:00 03/04/25 06:00 03/04/25 06:00 03/04/25 06:00
I&O
03/03/25 03/04/25 03/05/25
06:59 06:59 06:59
Intake Total 252 / 252
Output Total 850 / 850 1000 / 1000
Balance -598 / -598 -1000 / -1000
Review of Systems
-
History Source: Patient
All other systems: Reviewed and negative
[2025-03-04] MEDS: CARAFATE SUSPENSION PO ×4 (08:07→22:14)
[2025-03-04] MEDS: LIDOCAINE 4% PATCH TOPICAL (08:08)
--- NOTE | 2025-03-04 08:23 | PTCARENOTE ---
Patient with exp wheeze posteriorly this morning. Was placed on 2L n/c overnight d/t POx 88-89%. Room air POx today 90-91%. Dr Bravo made aware of need for O2 overnight when on unit to see patient. TT sent to notify him of exp wheeze and RA POx.
Reviewed importance of IS with patient and stressed compliance; patient demonstrated proper use. Son also at bedside and updated.
[2025-03-04] MEDS: AUGMENTIN 875 MG/125 MG PO (08:27)
[2025-03-04] MEDS: NOVOLOG FLEXPEN-LOW RESISTANCE SC ×3 (08:27→22:15)
[2025-03-04 08:30] LABS: Glucose - Point of Care 144 mg/dl (70-99)
--- NOTE | 2025-03-04 08:43 | CM ---
chart reviewed
angiogram today
spoke with Carol Ann regarding beds at [facility], she will call back
no pre-auth
PLAN: [facility], pending bed availability when stable
[2025-03-04] MEDS: VISBIOME 2 CAP PO (09:11)
[2025-03-04] MEDS: TOPROL XL 25 MG PO ×2 (09:11→22:18)
--- NOTE | 2025-03-04 09:11 | W.PN.ID1 ---
Date of Service
Date of Service: March 04, 2025
Today's Communication
Continue Dapto.
Replace Augmentin with cefazolin/metronidazole.
Assessment / Plan
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
# PAD, left 5th ischemic toe
. s/p CT angiogram
# s/p JESUS
. HD started 02/02. DC'd 02/24
. Renal function recovered
# s/p Severe esophagitis
.02/14 s/p EGD
. Biopsy: acute ulcerated esophagitis. Negative HSV, CMV, fungal stains.
# DM2 with neuropathy
- Wound cx MRSA
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
OR cx's : MRSA
Bone path proximal margin + osteomyelitis.
- Continue Daptomycin IV through 03/16/25 ( 6 weeks abx) from ray amp.
Renally adjusted Daptomycin dose.
Follow weekly CK (normal) qMonday.
# Side effects due to Augmentin.
# Acute cholecystitis
# Fever - resolved
# Acute leukocytosis, resolved
- 02/24 s/p perc giacomo, cx negative
-Discontinue Augmentin 500mg po bid due to c/o diarrhea, GI upset. C. diff neg.
- Replace with cefazolin 1g IVq8 and metronidazole 500mg IV q12 through 03/08/25.
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
Diabetes mellitus type 2
Hypertension
Atrial fibrillation on Xarelto
pacemaker placement
Chronic pain with spinal stimulator, not active; stimulator incompatible with MRI
Chronic left leg weakness due to history of back injury during lumbar procedure 2019
Lumbar laminectomy
Chief Complaint
-: Other (osteo of left fifth metatarsal)
Subjective / Review of Systems
is on the phone. Pt refusing Augmentin due to frequent loose stools. Had Imodium. BM improved. Also reports pt with poor appetite over the weekend probably due to the Augmentin. Both surprised about the scheduled angiogram today.
Vital Signs / Physical Exam
Vital Signs
Vital Signs
Temp Pulse Resp BP Pulse Ox
97.7 F 81 14 130/76 97
03/04/25 07:57 03/04/25 06:00 03/04/25 06:00 03/04/25 06:00 03/04/25 06:00
Physical Exam
Constitutional: No Acute Distress and Comfortable
Eyes: Sclera Anicteric
Cardiovascular: Regular Rate and S1/S2
Pulmonary: Clear
Gastrointestinal: Soft, Non Distended and Other (RUQ perc drain with bile)
Extremities: Edema (LUE )
Wound: Other (left foot examined with podiatry, 5th ray amp site wound with necrotic tissue, wound base dry and ischemic, no erythema)
Neurological: AO x 3
Lines: PICC (RUE) and HD Cath (RIJ)
Objective Data
Lab Data
Lab Results
03/04/25 06:22
03/04/25 06:22
ESR 78 mm/hour (0-20) H 01/28/25 12:23
PT 14.8 Sec (11.4-14.6) H 02/20/25 12:25
INR 1.11 02/20/25 12:25
APTT 125.6 Sec (23.4-35.0) H 03/04/25 06:22
Estimated Creat Clear 63 ml/min 03/04/25 06:22
Lactic Acid 1.3 mmol/L (0.7-2.0) 02/25/25 09:37
Total Bilirubin 1.0 mg/dl (0.2-1.3) 02/24/25 04:40
AST 18 U/L (17-59) 02/24/25 04:40
ALT 13 U/L (0-50) 02/24/25 04:40
Alkaline Phosphatase 143 U/L (38-126) H 02/24/25 04:40
C-Reactive Protein 228.10 mg/L (0.0-10.00) H 01/28/25 12:23
Most recent labs reviewed.
Micro Results:
03/02/25 12:26 C. difficile GDH Antigen & Toxins - Final
Feces/Stool Negative for toxigenic C.difficile
02/24/25 17:00 Wound Culture - Final
Gallbladder No growth
Gram Stain - Final
02/03/25 21:30 Wound Culture - Final
Foot - Left Staph aureus MRSA
Gram Stain - Final
02/03/25 21:30 Anaerobic Culture - Final
Foot - Left NO ANAEROBES ISOLATED
02/03/25 21:30 Tissue Culture - Final
Foot - Left Staph aureus MRSA
Gram Stain - Final
02/02/25 13:44 Urine Culture - Final
Urine NO GROWTH
01/29/25 04:07 Blood Culture - Final
Blood/Venous No Growth - Final Report
01/28/25 12:24 Blood Culture - Final
Blood/Venous No Growth - Final Report
01/31/25 09:04 Wound Culture - Final
Foot - Left Staph aureus MRSA
Gram Stain - Final
02/01/25 19:47 Influenza Types A & B (GIFTY) - Final
Nasal Swab Negative for Influenza A & B, NAAT
Negative results must be combined with clinical observations
and patient history.
Nucleic Acid Amplification test (NAAT)performed on the
[employer] platform.
01/30/25 10:04 Wound Culture - Final
Foot - Left Staph aureus MRSA
Gram Stain - Final
01/28/25 17:44 MRSA Screen - Final
Nose No Methicillin Resistant Staphylococcus aureus isolated.
Imaging:
01/28/25 Left foot XRAY: No acute osseous abnormality. Mild soft tissue swelling along the lateral forefoot.
02/01/25 CXR: Hazy increased density over the left lower hemithorax, probably mainly due to a posteriorly layering pleural effusion.
02/03/25 CXR: Parenchymal opacity within the right lower lung and the left mid to lower lung, similar to recent radiograph. Main differential considerations of atelectasis and/or pneumonia.
02/04/25 CT LE: 1. Interval amputation of the phalanges of the left 5th toe and the 5th metatarsal head since the prior exam performed 02/01/2025.
2. Large soft tissue wound distal to the 5th metatarsal with soft tissue emphysema extending deep to the lateral cortex of the 4th metatarsal head.
3. Moderate subcutaneous edema throughout the left lower leg and thigh.
4. Moderate to severe calcific atherosclerotic plaque throughout the left lower extremity.
5. Small to moderate-sized left knee joint effusion.
6. Severe anasarca in the left lateral abdominal wall.
7. Moderate retroperitoneal and extraperitoneal edema in the pelvis.
8. Severe diffuse urinary bladder wall thickening with adjacent perivesical inflammation suggesting ACUTE CYSTITIS. Chronic urinary bladder outlet obstruction is also likely present given severe enlargement of the prostate gland.
9. Mild circumferential wall thickening and fluid distention of the rectum suggesting an acute prostatitis. Rectal tube in place.
02/07/25 CXR/AXR: Extremely low lung volumes. Some bibasilar opacification which could represent atelectasis and/or pneumonia and small bilateral pleural effusions, left possibly greater than right. Air seen throughout small bowel, few loops
borderline prominent, nonspecific air-fluid levels, most likely representing ileus. No free air.
02/23/25 Abd US: Gallstones and sludge present with a positive sonographic Edwards's sign and mild wall thickening. Findings likely represent acute cholecystitis. There is no evidence of biliary duct dilation. The common bile duct measures 6 mm.
02/24/25 HIDA: There is no uptake within the gallbladder seen on initial and post morphine images. Findings are consistent with acute cholecystitis.
Care Review
Plan reviewed with: Physician (Dr. Bravo)
[2025-03-04] MEDS: TYLENOL 975 MG PO (09:12)
[2025-03-04] MEDS: APRESOLINE 50 MG PO ×2 (09:12→22:17)
[2025-03-04] MEDS: DESENEX/MITRAZOL/ZEASORB 1 APPLIC TOPICAL (09:12)
[2025-03-04] MEDS: PROTONIX 40 MG PO ×2 (09:12→22:18)
[2025-03-04] MEDS: FLAGYL 500 MG 100 IV ×2 (09:34→22:14)
[2025-03-04] MEDS: 0.45%NACL 1000 IV (09:34)
[2025-03-04] MEDS: ANCEF 5 IV ×2 (10:42→21:02)
--- NOTE | 2025-03-04 10:46 | W.PN.NEPH.PH ---
Today's Communication / Plan
-
ok for angio with IVF
updated on phone
Assessment/Plan
-
IMP:
TME
Septic shock
Lactic acidosis
Sepsis 2/2 to Diabetic left foot cellulitis w/ lymphangitis
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
Acute kidney injury-baseline cr 0.9-1.1
Peripheral artery disease
hyponatremia
IDDM 2
Essential hypertension
Constipation
A-fib�permanent
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
HLD
Obesity due to excess calories
cholecystitis status post cholecystotomy tube
Plan:
Remains on daptomycin
Creatinine improved and stable at 1.1 nonoliguric
No acute need for dialysis
ok to remove PermCath today
BP soft last night hence hold Procardia, likely titrate hydralzine
Currently now optimized for angiogram with contrast prophylaxis-IVF ordered by primary
d/w on phone and pt
d/w nursing
-
-
Date of Service: March 04, 2025
CC / HPI / ROS
-
Chief Complaint:
JESUS
History of Present Illness:
JESUS/HD
JESUS/Cr down to 1.1-no change
Cholecystotomy tube placed with good drainage 02/24/25
Remains hypertensive on hydralazine and metoprolol
Review of Systems:
Nonoliguric
no cp or sob noted
no fever
not out of bed
Labs
-
Labs:
WBC 9.8 10^3/uL (4.8-10.8) 03/04/25 06:22
RBC 2.87 10^6/uL (4.70-6.10) L 03/04/25 06:22
Hgb 8.2 g/dL (13.0-18.0) L 03/04/25 06:22
Hct 25.9 % (39.0-52.0) L 03/04/25 06:22
Plt Count 369 10^3/uL (130-400) 03/04/25 06:22
Sodium 137 mmol/L (135-145) 03/04/25 06:22
Potassium 4.1 mmol/L (3.5-5.1) 03/04/25 06:22
Chloride 108 mmol/L (98-107) H 03/04/25 06:22
Carbon Dioxide 22 mmol/L (22-30) 03/04/25 06:22
BUN 12 mg/dl (9-20) 03/04/25 06:22
Creatinine 1.1 mg/dL (0.7-1.3) 03/04/25 06:22
eGFR > 60.00 03/04/25 06:22
Glucose 138 mg/dl (70-99) H 03/04/25 06:22
Calcium 8.5 mg/dl (8.4-10.2) 03/04/25 06:22
Phosphorus 4.4 mg/dl (2.5-4.5) 02/26/25 03:52
Sby-X-Tfmbljocnvd Pept > 18859 pg/ml 02/01/25 20:16
Albumin 3.0 g/dl (3.5-5.0) L 02/24/25 04:40
Physical Exam
-
Vital Signs:
Vital Signs
Temp Pulse Resp BP Pulse Ox
98.1 F 92 18 135/72 94
03/04/25 11:29 03/04/25 11:29 03/04/25 11:29 03/04/25 11:29 03/04/25 11:29
Cardiovascular:: Regular rate and rhythm
Respiratory:: Bilateral: CTA
Lung Excursion:: Normal
Abdomen:: Nontender and Soft
Bowel Sounds:: Normal
Extremity Edema:: None: Bilateral:
Gonzalez Catheter: No
--- NOTE | 2025-03-04 11:20 | PTCARENOTE ---
Patient sent to [facility] to have tunneled HD cath removed; confirmed with Dr Quintana that cath can be removed. She also spoke with patient. Son in room and updated.
[2025-03-04 12:41] LABS: Glucose - Point of Care 106 mg/dl (70-99)
[2025-03-04] MEDS: CUBICIN 16 MG IV (12:50)
[2025-03-04 14:11] LABS: APTT 90.8 Sec (23.4-35.0)
--- NOTE | 2025-03-04 14:15 | PTCARENOTE ---
Per Angella Lomax NP patient still on the schedule for angiogram.
--- NOTE | 2025-03-04 15:16 | PTCARENOTE ---
Report given to Nu; she came to take patient to laboratory technologist with heparin infusing at 1800 units/hr.
--- NOTE | 2025-03-04 15:39 | PTCARENOTE ---
Pre procedure,received pt. Pt CAOx3, npo 93% on RA. Pt in Afib, vitals stable. Pt B/L groins shaved, B/L DP pulses by doppler. Pt with L foot wound dressing C/D/I. Anesthesia to bedside to see patient as well as MD Gonzalez.
[2025-03-04 15:50] LABS: Glucose - Point of Care 87 mg/dl (70-99)
--- NOTE | 2025-03-04 16:23 | W.SUR.PREOP ---
Pre-Operative Surgical Note
-
I have examined this patient prior to the performance of the scheduled procedure.
Spoke with patient and his at length. Discussed with hospitalist and nephrology. Planning to proceed with LE angio and possible endo intervention today for limb preservation goal.
Technical aspects of this procedure were discussed with him and his in detail. The benefits and rationale for this approach were discussed with both of them in detail. Operative risks were discussed with them in detail including but not
limited to contrast nephropathy, worsening kidney dysfunction, need for dialysis once again, bleeding, arterial access site injury, distal embolization, inability to successfully complete endovascular intervention, need for additional procedures and
major amputation. They expressed a clear understanding of our conversation and agreed to proceed with surgery as detailed above.
Mathew Gonzalez III, MD
Vascular Surgery
[facility]
[2025-03-04 17:53] LABS: ACT-LR - POC 211 Seconds (116-155)
--- NOTE | 2025-03-04 18:52 | W.SUR.POST ---
Surgical Immediate Post Op
Note
Pre Op Diagnosis: PAD
Post Op Diagnosis: PAD
Procedure Performed: LLE angiogram
Primary Surgeon: Mathew Gonzalez MD
Secondary Surgeons: Jesus Manuel Kinsey MD PhD
Anesthesia: MAC per anesthesia
Estimated Blood Loss: 10 cc
Fluids: Per anesthesia
Drains/Shunts: None
Specimens/Cultures: None
Doppler/Duplex/Angio (Y/N): Angio - Yes
Complications: None
Operative Findings: LLE angiogram via right groin and distal left PT access. Single vessel (Peroeal) runoff. Recannalation of PT via retrograde access and balloon angioplasty with 2-vessel runoff at end of case.
--- NOTE | 2025-03-04 19:29 | OR.RPT ---
Operative Report
Operative Report
Date of Operation: 03/04/2025
Pre Op Diagnosis:
1. 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
2. Osteomyelitis
3. Diabetes with atherosclerotic disease
Post Op Diagnosis:
1. 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
2. Osteomyelitis
3. Diabetes with atherosclerotic disease
Procedure:
1. Intravascular lithotripsy to left posterior tibial artery occlusion using Shockwave Javelin delivered via retrograde pedal access
2. Intravascular lithotripsy to left popliteal artery and tibioperoneal trunk (5 mm x 80 mm E8 Shockwave)
3. Balloon angioplasty of left posterior tibial artery (2.5 mm x 220 mm proximal/mid/distal; 3 mm x 40 mm origin/proximal)
4. Balloon angioplasty of left tibioperoneal trunk and proximal peroneal artery (3 mm x 40 mm)
5. Diagnostic aortobiiliac arteriogram
6. Diagnostic left lower extremity arteriogram
7. Ultrasound-guided retrograde pedal access left posterior tibial artery
8. Ultrasound-guided percutaneous access right common femoral artery
Surgeon: Mathew Gonzalez III, MD
Counterperson: Jesus Manuel Kinsey MD PhD PGY-7
Anesthesia: Sedation with local
Fluoroscopy:
45.7 min
229 mGy
58.13 gy.cm2
Complications: None
Estimated Blood Loss: Less than 20 cc
History and Indications for Procedure: 79-year-old diabetic male with limb threatening ischemia involving his left lower extremity.
Procedure in Detail: Fletcher Daniels was correctly identified and placed supine on the operating table. After adequate induction of anesthesia the bilateral groins were prepped and draped in the usual sterile fashion. A timeout was performed with the
nursing and anesthesia staff confirming the patient's identity as well as the nature and laterality of the procedure.
The right common femoral artery was identified under ultrasound guidance. The artery was patent. The superior and inferior aspects of the femoral head were identified with radiographic guidance and marked at the skin level. The proposed puncture
site was infiltrated with local anesthesia. Under ultrasound guidance we accessed the right common femoral artery with a micropuncture needle and upsized to a 5 Fr sheath over a [employer] wire. The wire and a Shepherds hook flush catheter were
advanced into the distal abdominal aorta and a diagnostic aorto-biiliac arteriogram was performed:
AORTO-ILIAC ARTERIOGRAM:
Aorta: Patent with no stenosis identified
Right common iliac artery: Patent with no stenosis identified
Right external iliac artery: Patent with no stenosis identified
Left common iliac artery: Patent with no stenosis identified
Left external iliac artery: Patent with no stenosis identified
Under roadmap guidance using a Glidewire and the Shepherds hook catheter we selected the left common iliac artery followed by the external iliac artery and then the common femoral artery. A catheter was tracked up and over the aortic bifurcation and
placed in the common femoral artery. A diagnostic left lower extremity arteriogram was then performed which demonstrated the following:
LEFT LOWER EXTREMITY:
Common femoral artery: Patent with no significant stenosis identified
Profunda femoral artery: Patent with no significant stenosis identified
Superficial femoral artery: Patent with no significant stenosis identified
Popliteal artery: Scattered calcification. Patent. Lvhde-fir-vebf popliteal artery with moderate to high-grade stenosis focally. Focal stenosis behind the knee, calcified. Below the knee segment patent with no significant stenosis identified
Anterior tibial artery: Patent stump but occluded thereafter. Reconstitutes at the ankle and continues into the foot to form the dorsalis pedis artery
Tibioperoneal trunk: Patent with distal stenosis identified
Peroneal artery: Patent as the single vessel tibial artery runoff. No significant stenosis identified
Posterior tibial artery: Occluded. Distal reconstitution identified in the distal calf. Delayed plantar flow identified in the foot
ENDOVASCULAR INTERVENTION: Systemic heparin was administered. Selected the superficial femoral artery. Exchanged out for a 5 Fr 70 cm sheath over a [employer] wire. Selected the popliteal artery under roadmap guidance. The popliteal stenoses were
crossed with a Quickcross and Glidewire. The wire and catheter were advanced into the below the knee popliteal artery and subtraction angio confirmed proper position in the true lumen. Then selected the tibioperoneal trunk with the same approach.
We attempted to select the anterior tibial artery stump but were unsuccessful. The origin of the posterior tibial artery was not clear.
I then made the decision to attempt recanalization of the posterior tibial artery occlusion from a retrograde pedal access approach. The left foot and ankle were prepped. Using ultrasound guidance I successfully accessed the posterior tibial
artery at the ankle in a retrograde fashion with a micropuncture needle. We then upsized to a 4 Stateless sheath. Radial artery cocktail was administered through the sheath. Using a 0.014 Mongo wire and 0.014 Quickcross I was able to successfully
navigate retrograde through the posterior tibial artery occlusion and enter into the tibioperoneal trunk. Proper position in the true lumen was confirmed with an arteriogram through the 0.014 Quickcross. The Mongo wire was advanced into the
popliteal artery above the knee. I then upsized to a 5 Stateless sheath. Due to the heavily calcified nature of the posterior tibial artery disease and in an effort to successfully cross the lesion, modify the calcium and achieve luminal gain with
endovascular intervention I elected to proceed with intravascular lithotripsy with a Shockwave Javelin catheter. The Javelin catheter was brought into position under radiographic guidance over the 0.014 wire from the 5 Stateless pedal access sheath.
The Javelin catheter was advanced through the posterior tibial artery and across the disease while simultaneously delivering lithotripsy pulses. 120 pulses were delivered. Subsequent arteriogram demonstrated an improvement with a now patent
posterior tibial artery. I then followed this with 2.5 mm x 220 mm angioplasty balloon. This was positioned across the origin of the posterior tibial artery extending distally through the posterior tibial artery. The balloon was positioned in the
desired location and inflated to nominal pressure. The balloon was held in place at nominal pressure for a 4-minute inflation. The balloon was then deflated and repositioned further distally. The 5 Stateless pedal access sheath was pulled back to
allow for maximum coverage with the angioplasty balloon. The 2.5 mm balloon was positioned in the distal posterior tibial artery and inflated to nominal pressure. The balloon was kept at nominal pressure for another 4-minute inflation. The
balloon was then removed over the wire. Subsequent arteriogram demonstrated a dramatic improvement with a now patent posterior tibial artery.
Using the Quickcross catheter from the up and over sheath we selected the tibioperoneal trunk and peroneal artery using a 0.[address] wire. Residual stenosis at the distal tibioperoneal trunk was treated with a 3 mm x 40 mm angioplasty balloon.
The balloon was positioned in the desired location under roadmap guidance and inflated to nominal pressure for 3-minute inflation. The balloon was then deflated and removed over the wire. The proximal posterior tibial artery and origin of the
posterior tibial artery was treated with the 3 mm x 40 mm angioplasty balloon as well delivered via the retrograde pedal access sheath. This balloon was inflated to nominal pressure and held in place for 3-minute inflation across the origin of the
posterior tibial artery and into the proximal artery.
We then focused our attention on the calcified popliteal artery disease and residual tibioperoneal trunk stenosis. Due to the heavily calcified nature of the popliteal artery and tibioperoneal trunk disease and in an effort to modify the calcium to
achieve maximum luminal gain with endovascular intervention I elected to proceed with intravascular lithotripsy. A 5 mm x 80 mm Shockwave balloon was advanced so that the distal and mid or was across the tibioperoneal trunk stenosis under roadmap
guidance. Alternating rounds of lithotripsy pulse delivery at sub-nominal pressure and angioplasty at nominal pressure was performed across the length of the arterial disease. In between rounds of pulse delivery and angioplasty the balloon was
deflated and repositioned under roadmap guidance. All 400 pulses were delivered. Subsequent arteriogram demonstrated an excellent technical result with a patent popliteal artery and tibioperoneal trunk and no significant residual stenosis,
dissection or filling defects.
COMPLETION ARTERIOGRAM: Excellent technical result. Brisk flow through the popliteal artery, tibioperoneal trunk, peroneal artery and posterior tibial artery. Posterior tibial artery was widely patent with no significant residual stenosis
identified. The 5 Stateless pedal access sheath was pulled and flow of contrast was identified through the posterior tibial artery and into the foot. Plantar branch flow to the lateral foot and base of the fifth metatarsal amputation site was
identified.
Satisfied with this result we concluded the procedure. The up and over sheath tip was pulled back into the right external iliac artery. Protamine was administered. Direct manual pressure was held over the retrograde pedal access site until
hemostasis was achieved. The up and over 5 Stateless sheath was removed and direct manual pressure was held over the puncture site until hemostasis was achieved. Sterile dressings were applied.
The patient tolerated the procedure well and was taken to the recovery area in stable condition.
Attestation: I was present and responsible for the entire procedure.
Signed:
Mathew Gonzalez III, MD
Vascular Surgery
[facility]
[2025-03-04] MEDS: DILAUDID 0.25 MG IV ×2 (19:31→19:42)
[2025-03-04 19:55] LABS: Glucose - Point of Care 139 mg/dl (70-99)
--- NOTE | 2025-03-04 20:17 | PTCARENOTE ---
Report received from Marina CIVIL ENGINEER. Hemostasis achieved at 1900. Patient arrived into room 3346 from PACU. Heparin gtt off. IVF infusing by gravity. Pt drowsy. when asked how his pain is, pt unable to state. Neurovascular checks per the work list.
Dressing intact, no signs of hematoma. pt and family educated on limb restrictions.
--- NOTE | 2025-03-04 20:34 | PTCARENOTE ---
Addendum entered by Claudio Adames RN 03/04/25 21:27:
Plan to reeval in the morning
Original Note:
[place] text Dr. Gonzalez to confirm Heparin gtt is off and will keep off overnight.
[2025-03-04] MEDS: APRESOLINE PO (21:03)
[2025-03-04] MEDS: TYLENOL PO ×2 (21:03→22:16)
[2025-03-04] MEDS: REMOVE LIDOCAINE PATCH REMOVE (22:14)
[2025-03-04] MEDS: LIPITOR 10 MG PO (22:19)
[2025-03-04] MEDS: PROCARDIA XL (EXTENDED RELEASE) 30 MG PO (22:19)
[2025-03-04 22:26] LABS: Glucose - Point of Care 169 mg/dl (70-99)
[2025-03-04] MEDS: DESENEX/MITRAZOL/ZEASORB TOPICAL (22:27)
[2025-03-04] MEDS: LANTUS 0.12 UNITS SC (22:32)
[2025-03-05] VITALS (15 sets, daily range): BP systolic 91–116; BP diastolic 45–66; PULSE 80; BMI 30.1
[2025-03-05] MEDS: ANCEF 5 IV ×3 (01:46→17:06)
[2025-03-05] MEDS: 0.45%NACL 1000 IV (06:22)
[2025-03-05 06:43] LABS: Hematocrit 25.9 % (39.0-52.0); Hemoglobin 8.2 g/dL (13.0-18.0); Mean Corp Hgb Conc. 31.7 g/dL (33.0-37.0); Mean Corpuscular Volume 91.2 fL (80.0-94.0); Platelet Count 349 10^3/uL (130-400); Red Cell Dist. Width 15.4 % (11.5-14.5)
[2025-03-05 07:17] LABS: Blood Urea Nitrogen 14 mg/dl (9-20); Calcium 8.6 mg/dl (8.4-10.2); Carbon Dioxide 20 mmol/L (22-30); Chloride 108 mmol/L (98-107); Estimated Creatinine Clearance 57 ml/min; Glucose 164 mg/dl (70-99); Potassium 4.6 mmol/L (3.5-5.1); Sodium 136 mmol/L (135-145); eGFR > 60.00
--- NOTE | 2025-03-05 08:16 | W.PN.HOSP.TC ---
Today's Communication/Plan
-
Stop hydralazine
PT/OT
Podiatry follow-up
Assessment / Plan
Assessment / Plan
Gen-AAOx3, NAD
HEENT-NC, AT, anicteric, clear oral mm
Neck-supple
CV-reg, no M, +S1/S2
Lungs-clear B/L
Abd-soft, NT, ND, right upper quadrant drain intact
Ext-LUE edema
Musculoskeletal-no cyanosis, clubbing, left foot dressing
Skin-warm and dry
Neuro-grossly non-focal
Psych-calm, cooperative
Septic shock - due to to left fifth metatarsal abscess, acute osteomyelitis. Sepsis and shock resolved.
Chronic left lower extremity weakness due to back injury during procedure 2019
-Appreciate ID input, continue IV daptomycin through 03/16/2025 for 6 weeks
-Shock resolved. Off vasopressors. Blood cultures negative so far. Wound culture shows MRSA.
-Leukocytosis improved overall. Afebrile.
-Unable to have MRI due to spinal stimulator not active
-Wound culture grew MRSA
-Patient underwent left partial fifth ray amputation 02/03. Path report from 02/04 shows focal acute osteomyelitis
-Bone culture of the proximal margin 5th metatarsal was positive for osteomyelitis
-Podiatry plans for repeat debridement of soft tissue and bone prior to discharge after revascularization
PAD -On 03/04/2025, patient underwent lower extremity angiogram with intravascular lithotripsy to left posterior tibial artery occlusion, left popliteal artery and tibioperoneal trunk, balloon angioplasty of left posterior tibial artery and left
tibioperoneal trunk.
Vascular surgery mentioned that now he has good flow into the left foot.
Acute kidney injury -resolved.
- due to septic shock. Anuric. Gonzalez catheter was placed. Etiology of JESUS most likely due to septic shock and medications and less likely due to contrast-induced nephropathy as contrast exposure was on 02/01, creatinine was 3.3 morning of 02/01.
-Appreciate nephrology input, dialysis started 02/02. Dialysis IJ catheter was placed.
-High anion gap metabolic acidosis due to septic shock, lactic acidosis. Metabolic acidosis resolved. Off sodium bicarbonate IV.
-Hold metformin, lisinopril, hydrochlorothiazide, trend creatinine, no nephrotoxic drugs or NSAIDs
-Last dialyzed 02/22. Patient currently having renal recovery, nephrology to monitor and determine any further needs for dialysis
Renal function back to baseline, no need for further hemodialysis per nephrology. Dialysis catheter to be removed today, 03/04.
Sepsis without septic shock -sepsis resolved.
Acute cholecystitis
-With fever and leukocytosis on 02/23
-Appreciate general surgery input, recommend biliary drain since patient is high risk for surgical intervention
-Status post percutaneous cholecystostomy tube 02/24 with IR, cx neg
-Resolving status post IV Zosyn, ID recommends augmentin twice daily through 03/06/25
-Lactic acid normal, off Levophed 02/25
-Needs outpatient follow-up with Dr. Bernabe Juarez
Ileus -resolved. Did have some abdominal pain overnight and was treated with morphine. Obstruction series ordered, report pending. Bowels are moving however.
- developed nausea and vomiting on 02/03. Briefly treated with NG tube.
- Repeat x-ray 02/07 showed air throughout the small bowel, few loops borderline prominent, nonspecific air-fluid levels, most likely ileus. No free air.
- Held narcotics/IV Dilaudid prn (started Tylenol for pain control instead)
- Patient having bowel movements
- Repeat x-ray from 02/12/25 was okay
Acute diarrhea -likely due to Augmentin use. Stool C. difficile negative. Diarrhea improved with as needed Imodium.
Lactic acidosis due to sepsis/shock - normalized.
-Differential diagnosis include metformin induced versus worsening sepsis
-Metformin discontinued 02/01
-MAP has been consistently greater than 65
Aspiration pneumonitis/acute hypoxic respiratory failure - triggered by vomiting, possibly triggered by ileus. Placed back on 2 L nasal cannula last night by nursing for pulse ox in the high 80% range. Encourage incentive spirometer.
Acute TME - due to sepsis, shock, critical illness. Mental status much improved and now at baseline.
Odynophagia secondary to Severe Esophagitis found on EGD 02/13/25
Poor PO Intake Secondary to Above
-GI performed EGD on 02/13/25: showed severe esophagitis
Path report shows acute ulcerative esophagitis, immunohistochemical stains negative for HSV 1 and 2, CMV. No fungal organisms identified.
-Continue PPI BID and Carafate
-On discharge cont Protonix PO BID x 4 weeks then daily and carafate AC and HS with wean to BID in 2 weeks then daily x 2 weeks then stop
Acute GI bleed/acute esophagitis -GI bleed resolved. Stools have been brown.
EGD performed 02/13 shows LA grade D reflux esophagitis without bleeding. Normal stomach, normal duodenum. Dobbhoff tube clogged as per nursing. Now that patient tolerating soft diet can DC Dobbhoff tube.
-Acute GI bleed exacerbated by anticoagulation with IV heparin.
-Continue PPI twice daily and Carafate.
Acute blood loss anemia mixed with anemia of renal failure and sepsis
-Due to GI bleed as above. Admission hemoglobin was 11.6. May have baseline chronic anemia of unclear etiology.
Suspect component of anemia related to critical illness as well as renal failure.
- 02/26, hemoglobin down to 6.5, CT without contrast negative for intraperitoneal bleed, stools are brown
Transfused 1 unit of blood on 02/26. Hemoglobin now stable, 8.2.
Nonblanching skin lesions -unclear if vasculitis, possibly due to vancomycin. Not truly palpable purpura. Now off vancomycin and on daptomycin per ID.
Hypokalemia -replete as needed
Mild Hematuria -- RESOLVED
- Noted on 02/12/25, later resolved while on Heparin Drip
- Monitor for now
LUE edema
LUE pain from needlesticks
- Doppler ultrasound negative for DVT, repeat US 02/27 also neg
- Ordered scheduled Tylenol 1000 mg Q8H (which is helping)
Acute on chronic heart failure with preserved ejection fraction
- Cardiology saw patient this hospitalization, continue dialysis as per nephrology
- Dr. Munoz is his street openings inspector
Troponin elevation
- Suspect acute nonischemic myocardial injury due to septic shock. Troponins trended down.
Permanent atrial fibrillation -
-Continue Heparin Drip. Was on Xarelto prior to admission -- plan to transition back to oral anticoagulation once no further procedures planned
-Outpatient Toprol XL added back on 02/12/25
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
Known moderate nonobstructive coronary disease in 2021
-Continue statin
2 consecutive episodes of VT overnight 02/10/25 to 02/11/25
-Seen by cardiology this admission
- Resumed Toprol XL
Essential hypertension -hypotensive. Stop hydralazine.
Hyponatremia
- Resolved.
Hypomagnesemia
- Replete as needed
Hyperphosphatemia
- due to JESUS. Improving. Repeat phosphorus normal.
DM 2 with hyperglycemia -glucoses have improved overnight, 138 this morning, 210 last night. Most of the daytime glucoses are below 180.
-At home he was on insulin degludec 24 units at bedtime, NovoLog sliding scale with meals, metformin.
-Hemoglobin A1c 7.1 on 01/13/2025
-Hold metformin 1000 mg daily due to JESUS and lactic acidosis earlier this hospitalization
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
Continue Lantus 12 units at bedtime, continue low resistance NovoLog scale.
Hyperlipidemia
- Resumed statin
Chronic back pain
-Patient sees a pain management provider outpatient
Obesity due to excess calories
DVT Prophylaxis: Heparin Drip.
Code Status: Full code
Dispo - acute rehab when medically stable, he has been accepted to [facility].
Anticipated Discharge: > 48 hours
Subjective/Interval History
-
Date of Service: March 05, 2025
Patient seen and examined, no complaints.
Objective Data
-
Labs:
Laboratory Results
03/04/25 03/05/25
21:30 06:15
WBC 6.2
Hgb 8.2 L
Hct 25.9 L
Plt Count 349
APTT Cancelled
Sodium 136
Potassium 4.6
Chloride 108 H
Carbon Dioxide 20 L
BUN 14
Creatinine 1.2
Glucose 164 H
Calcium 8.6
Vital Signs:
Vital Signs
Temp Pulse Resp BP Pulse Ox
97.6 F 66 10 93/59 93
03/05/25 07:30 03/05/25 06:07 03/05/25 06:00 03/05/25 06:07 03/05/25 06:21
I&O
03/04/25 03/05/25 03/06/25
06:59 06:59 06:59
Output Total 1000 / 1000 525 / 525
Balance -1000 / -1000 -525 / -525
Review of Systems
-
History Source: Patient
All other systems: Reviewed and negative
[2025-03-05] MEDS: CARAFATE SUSPENSION PO ×4 (08:18→22:27)
[2025-03-05 08:26] LABS: Glucose - Point of Care 158 mg/dl (70-99)
[2025-03-05] MEDS: VISBIOME 2 CAP PO (09:23)
[2025-03-05] MEDS: PROTONIX 40 MG PO ×2 (09:23→21:53)
[2025-03-05] MEDS: TOPROL XL 25 MG PO ×2 (09:23→22:25)
--- NOTE | 2025-03-05 09:23 | W.PN.ID1 ---
Date of Service
Date of Service: March 05, 2025
Today's Communication
Continue abx's as below.
Assessment / Plan
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
. 02/03/25 s/p left foot partial 5th ray amputation
. OR cx's : MRSA
. Bone path proximal margin + osteomyelitis.
# PAD, left 5th ischemic toe
. 03/04 s/p LLE endo-vascularization
# s/p JESUS
. HD started 02/02. DC'd 02/24
. Renal function recovered
# DM2 with neuropathy
- Podiatry planning for I+D, revision of left 5th ray amp.
- Continue Daptomycin IV through 03/16/25 ( 6 weeks abx) from ray amp or sooner once surgical cure achieved.
# Side effects due to Augmentin.
# Acute cholecystitis
- 02/24 s/p perc giacomo, cx negative
-Discontinued Augmentin 500mg po bid due to c/o diarrhea, GI upset. C. diff neg.
-Continue cefazolin 1g IVq8 and metronidazole 500mg IV q12 through 03/08/25.
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
Diabetes mellitus type 2
Hypertension
Atrial fibrillation on Xarelto
pacemaker placement
Chronic pain with spinal stimulator, not active; stimulator incompatible with MRI
Chronic left leg weakness due to history of back injury during lumbar procedure 2019
Lumbar laminectomy
Chief Complaint
-: Other (osteo of left fifth metatarsal)
Subjective / Review of Systems
No diarrhea.
Will start diet today.
Vital Signs / Physical Exam
Vital Signs
Vital Signs
Temp Pulse Resp BP Pulse Ox
97.6 F 66 10 93/59 93
03/05/25 07:30 03/05/25 06:07 03/05/25 06:00 03/05/25 06:07 03/05/25 06:21
Physical Exam
Constitutional: No Acute Distress
Eyes: Sclera Anicteric
Cardiovascular: Regular Rate and S1/S2
Pulmonary: Clear
Gastrointestinal: Soft, Non Tender and Non Distended
Genito-Urinary: Negative CVA Tenderness
Extremities: Negative Edema
Neurological: AO x 3
Lines: PICC
Objective Data
Lab Data
Lab Results
03/05/25 06:15
03/05/25 06:15
ESR 78 mm/hour (0-20) H 01/28/25 12:23
PT 14.8 Sec (11.4-14.6) H 02/20/25 12:25
INR 1.11 02/20/25 12:25
APTT Cancelled 03/04/25 21:30
Estimated Creat Clear 57 ml/min 03/05/25 06:15
Lactic Acid 1.3 mmol/L (0.7-2.0) 02/25/25 09:37
Total Bilirubin 1.0 mg/dl (0.2-1.3) 02/24/25 04:40
AST 18 U/L (17-59) 02/24/25 04:40
ALT 13 U/L (0-50) 02/24/25 04:40
Alkaline Phosphatase 143 U/L (38-126) H 02/24/25 04:40
C-Reactive Protein 228.10 mg/L (0.0-10.00) H 01/28/25 12:23
Most recent labs reviewed.
Micro Results:
03/02/25 12:26 C. difficile GDH Antigen & Toxins - Final
Feces/Stool Negative for toxigenic C.difficile
02/24/25 17:00 Wound Culture - Final
Gallbladder No growth
Gram Stain - Final
02/03/25 21:30 Wound Culture - Final
Foot - Left Staph aureus MRSA
Gram Stain - Final
02/03/25 21:30 Anaerobic Culture - Final
Foot - Left NO ANAEROBES ISOLATED
02/03/25 21:30 Tissue Culture - Final
Foot - Left Staph aureus MRSA
Gram Stain - Final
02/02/25 13:44 Urine Culture - Final
Urine NO GROWTH
01/29/25 04:07 Blood Culture - Final
Blood/Venous No Growth - Final Report
01/28/25 12:24 Blood Culture - Final
Blood/Venous No Growth - Final Report
01/31/25 09:04 Wound Culture - Final
Foot - Left Staph aureus MRSA
Gram Stain - Final
02/01/25 19:47 Influenza Types A & B (GIFTY) - Final
Nasal Swab Negative for Influenza A & B, NAAT
Negative results must be combined with clinical observations
and patient history.
Nucleic Acid Amplification test (NAAT)performed on the
GFRANQ platform.
01/30/25 10:04 Wound Culture - Final
Foot - Left Staph aureus MRSA
Gram Stain - Final
01/28/25 17:44 MRSA Screen - Final
Nose No Methicillin Resistant Staphylococcus aureus isolated.
Imaging:
01/28/25 Left foot XRAY: No acute osseous abnormality. Mild soft tissue swelling along the lateral forefoot.
02/01/25 CXR: Hazy increased density over the left lower hemithorax, probably mainly due to a posteriorly layering pleural effusion.
02/03/25 CXR: Parenchymal opacity within the right lower lung and the left mid to lower lung, similar to recent radiograph. Main differential considerations of atelectasis and/or pneumonia.
02/04/25 CT LE: 1. Interval amputation of the phalanges of the left 5th toe and the 5th metatarsal head since the prior exam performed 02/01/2025.
2. Large soft tissue wound distal to the 5th metatarsal with soft tissue emphysema extending deep to the lateral cortex of the 4th metatarsal head.
3. Moderate subcutaneous edema throughout the left lower leg and thigh.
4. Moderate to severe calcific atherosclerotic plaque throughout the left lower extremity.
5. Small to moderate-sized left knee joint effusion.
6. Severe anasarca in the left lateral abdominal wall.
7. Moderate retroperitoneal and extraperitoneal edema in the pelvis.
8. Severe diffuse urinary bladder wall thickening with adjacent perivesical inflammation suggesting ACUTE CYSTITIS. Chronic urinary bladder outlet obstruction is also likely present given severe enlargement of the prostate gland.
9. Mild circumferential wall thickening and fluid distention of the rectum suggesting an acute prostatitis. Rectal tube in place.
02/07/25 CXR/AXR: Extremely low lung volumes. Some bibasilar opacification which could represent atelectasis and/or pneumonia and small bilateral pleural effusions, left possibly greater than right. Air seen throughout small bowel, few loops
borderline prominent, nonspecific air-fluid levels, most likely representing ileus. No free air.
02/23/25 Abd US: Gallstones and sludge present with a positive sonographic Edwards's sign and mild wall thickening. Findings likely represent acute cholecystitis. There is no evidence of biliary duct dilation. The common bile duct measures 6 mm.
02/24/25 HIDA: There is no uptake within the gallbladder seen on initial and post morphine images. Findings are consistent with acute cholecystitis.
[2025-03-05] MEDS: FLAGYL 500 MG 100 IV ×2 (09:25→22:27)
[2025-03-05] MEDS: TYLENOL 975 MG PO ×3 (09:25→22:28)
[2025-03-05] MEDS: LIDOCAINE 4% PATCH 1 PATCH TOPICAL (09:25)
[2025-03-05] MEDS: DESENEX/MITRAZOL/ZEASORB 1 APPLIC TOPICAL ×2 (09:25→21:54)
[2025-03-05] MEDS: NOVOLOG FLEXPEN-LOW RESISTANCE 1 UNITS SC (09:26)
[2025-03-05] MEDS: CARAFATE SUSPENSION 1 GM PO (09:32)
--- NOTE | 2025-03-05 09:45 | PTCARENOTE ---
Patient received from retail shift supervisor. Patient resting comfortably in bed. AAO, VSS. No events noted overnight. No complaints of pain at this time. Currently on Room Air. Continuing ABX. Heparin gtt to be resumed per vascular, starting at 1800
units/hr as that was the stopping point prior. Nikolay BHAT. Call cervantes in reach.
--- NOTE | 2025-03-05 09:48 | W.PN.VS ---
Addendum entered and electronically signed by CAPRICE Horvath 03/05/25 10:04:
Correction to physical exam access was at left posterior tibial
Original Note:
Today's Communication / Plan
-
Below plan reviewed with attending Dr. Mathew Gonzalez III.
Assessment/Plan
-
Assessment: 79-year-old male admitted for left lower extremity cellulitis with hospitalization now complicated by JESUS and sepsis, with peripheral arterial disease,
POD #1
1. Intravascular lithotripsy to left posterior tibial artery occlusion using Shockwave Javelin delivered via retrograde pedal access
2. Intravascular lithotripsy to left popliteal artery and tibioperoneal trunk (5 mm x 80 mm E8 Shockwave)
3. Balloon angioplasty of left posterior tibial artery (2.5 mm x 220 mm proximal/mid/distal; 3 mm x 40 mm origin/proximal)
4. Balloon angioplasty of left tibioperoneal trunk and proximal peroneal artery (3 mm x 40 mm)
5. Diagnostic aortobiiliac arteriogram
6. Diagnostic left lower extremity arteriogram
7. Ultrasound-guided retrograde pedal access left posterior tibial artery
8. Ultrasound-guided percutaneous access right common femoral artery
Plan:
Okay to restart heparin infusion today for anticoagulation
Can remove right groin and left foot Tegaderm dressings later this afternoon
Follow-up ultrasound and appointment placed in discharge instructions
We will sign off please call with questions or concerns
Subjective Data
-
Date of Service: March 05, 2025
Patient seen and examined at bedside, offers no complaints. Denies pain at right femoral puncture site. Tolerating p.o. diet.
Objective Data
-
Vital Signs
Temp Pulse Resp BP Pulse Ox
97.6 F 95 10 108/56 93
03/05/25 07:30 03/05/25 09:23 03/05/25 06:00 03/05/25 09:23 03/05/25 06:21
Intake and Output
03/04/25 03/05/25 03/06/25
06:59 06:59 06:59
Output Total 1000 / 1000 525 / 525
Balance -1000 / -1000 -525 / -525
Output:
Drain Output (Total) 225 / 225
Right Upper Abdomen Biliary 225 / 225
Urine, Voided 1000 / 1000 300 / 300
Other:
How many times incontinent 1
SMALL amount urine
Lab Results
03/05/25 06:15
03/05/25 06:15
Calcium 8.6 mg/dl (8.4-10.2) 03/05/25 06:15
Phosphorus 4.4 mg/dl (2.5-4.5) 02/26/25 03:52
Magnesium 1.6 mg/dl (1.6-2.3) 02/28/25 05:31
Total Bilirubin 1.0 mg/dl (0.2-1.3) 02/24/25 04:40
Direct Bilirubin 0.8 mg/dl (0.0-0.4) H 02/04/25 16:14
AST 18 U/L (17-59) 02/24/25 04:40
ALT 13 U/L (0-50) 02/24/25 04:40
Alkaline Phosphatase 143 U/L (38-126) H 02/24/25 04:40
Total Protein 6.4 g/dl (6.3-8.2) 02/24/25 04:40
Albumin 3.0 g/dl (3.5-5.0) L 02/24/25 04:40
Physical Exam
-
Resting in bed comfortably
No tachycardia
No dyspnea on room air
Right groin femoral puncture site dressing clean, dry, and intact, compartments soft, no evidence of hematoma
Left foot dressing clean, dry, and intact, AT Doppler signal present, left foot DP puncture site clean, dry, and intact no evidence of hematoma
[2025-03-05] MEDS: HEPARIN 25000 UNITS/250 ML IV ×2 (10:41→23:23)
--- NOTE | 2025-03-05 11:28 | W.PN.NEPH.PH ---
Today's Communication / Plan
-
Follow-up BMP
Hydralazine held for hypotension
Assessment/Plan
-
IMP:
TME
Septic shock
Lactic acidosis
Sepsis 2/2 to Diabetic left foot cellulitis w/ lymphangitis
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
Acute kidney injury-baseline cr 0.9-1.1
Peripheral artery disease
hyponatremia
IDDM 2
Essential hypertension
Constipation
A-fib�permanent
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
HLD
Obesity due to excess calories
cholecystitis status post cholecystotomy tube
Plan:
Remains on daptomycin
Creatinine improved and stable at 1.2 nonoliguric postop day #1 angiogram
No acute need for dialysis
PermCath out
BP soft last night hence hold Procardia, hydralazine held
d/w on phone and pt
d/w nursing
-
-
Date of Service: March 05, 2025
CC / HPI / ROS
-
Chief Complaint:
JESUS
History of Present Illness:
JESUS/HD
JESUS/Cr down to 1.2
Cholecystotomy tube placed with good drainage 02/24/25
Hypotension last blood pressure low so
Review of Systems:
Nonoliguric
no cp or sob noted
no fever
not out of bed
Labs
-
Labs:
WBC 6.2 10^3/uL (4.8-10.8) 03/05/25 06:15
RBC 2.84 10^6/uL (4.70-6.10) L 03/05/25 06:15
Hgb 8.2 g/dL (13.0-18.0) L 03/05/25 06:15
Hct 25.9 % (39.0-52.0) L 03/05/25 06:15
Plt Count 349 10^3/uL (130-400) 03/05/25 06:15
Sodium 136 mmol/L (135-145) 03/05/25 06:15
Potassium 4.6 mmol/L (3.5-5.1) 03/05/25 06:15
Chloride 108 mmol/L (98-107) H 03/05/25 06:15
Carbon Dioxide 20 mmol/L (22-30) L 03/05/25 06:15
BUN 14 mg/dl (9-20) 03/05/25 06:15
Creatinine 1.2 mg/dL (0.7-1.3) 03/05/25 06:15
eGFR > 60.00 03/05/25 06:15
Glucose 164 mg/dl (70-99) H 03/05/25 06:15
Calcium 8.6 mg/dl (8.4-10.2) 03/05/25 06:15
Phosphorus 4.4 mg/dl (2.5-4.5) 02/26/25 03:52
Wkt-D-Kycpjkfhyli Pept > 71779 pg/ml 02/01/25 20:16
Albumin 3.0 g/dl (3.5-5.0) L 02/24/25 04:40
Physical Exam
-
Vital Signs:
Vital Signs
Temp Pulse Resp BP Pulse Ox
97.6 F 95 10 108/56 93
03/05/25 07:30 03/05/25 09:23 03/05/25 06:00 03/05/25 09:23 03/05/25 06:21
Cardiovascular:: Regular rate and rhythm
Respiratory:: Bilateral: CTA
Lung Excursion:: Normal
Abdomen:: Nontender and Soft
Bowel Sounds:: Normal
Extremity Edema:: None: Bilateral:
Gonzalez Catheter: No
[2025-03-05 12:11] LABS: Glucose - Point of Care 229 mg/dl (70-99)
--- NOTE | 2025-03-05 13:16 | W.PN.POD ---
Today's Communication
Today's Communication
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
Assessment / Plan
-
S/P Left partial 5th ray amputation - secondary to Left foot Diabetic foot infection
PAD - S/P Left LE revascularization
Plan:
The left foot wound was flushed and dressed with silver alginate today. Continue antibiotics per ID. Bone culture of the proximal margin 5th metatarsal was positive for osteomyelitis.
We discussed plans for repeat debridement of soft tissue with likely wound VAC. He is added to the OR schedule for tomorrow (03/06 at 1pm). NPO after midnight. Surgical consent is reviewed and discussed with he, his and his son. Risks,
benefits and complications discussed at length including need for repeat debridement, additional surgery or more proximal amputation if he is unable to heal. All questions and concerns answered to the best of my ability today.
Subjective
Chief Complaint
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
Subjective
Patient awake and conversational today.
Objective
Temp Pulse Resp BP Pulse Ox
97.7 F 95 10 108/56 96
03/05/25 11:32 03/05/25 09:23 03/05/25 06:00 03/05/25 09:23 03/05/25 11:23
03/05/25 06:15
03/05/25 06:15
Vital Signs and Lab results were reviewed.
Physical Exam
Physical Exam
Left foot with bandages intact, minimal strikethrough on inner bandages. non-palpable pulses, CFT delayed, Packing in place, wound bed is clean with no purulence expressed and erythema resolved. The periphery of the wound is dark eschar and the
base of the wound is dark and non viable with no bleeding
[2025-03-05] MEDS: NOVOLOG FLEXPEN-LOW RESISTANCE 2 UNITS SC (13:46)
[2025-03-05] MEDS: CUBICIN 16 MG IV (13:46)
[2025-03-05] MEDS: PROCARDIA XL (EXTENDED RELEASE) 30 MG PO (17:05)
[2025-03-05] MEDS: LIPITOR 10 MG PO (17:06)
[2025-03-05 17:35] LABS: APTT 52.9 Sec (23.4-35.0)
[2025-03-05 19:02] LABS: Glucose - Point of Care 236 mg/dl (70-99)
[2025-03-05] MEDS: NOVOLOG FLEXPEN-LOW RESISTANCE SC (19:21)
[2025-03-05 21:37] LABS: Glucose - Point of Care 282 mg/dl (70-99)
[2025-03-05] MEDS: REMOVE LIDOCAINE PATCH REMOVE (21:53)
[2025-03-05] MEDS: LANTUS 0.12 UNITS SC (22:27)
[2025-03-05] MEDS: ATARAX 10 MG PO (22:28)
[2025-03-06] VITALS (17 sets, daily range): BP systolic 0–156; BP diastolic 54–89; BMI 31.0
[2025-03-06 01:02] LABS: APTT 100.2 Sec (23.4-35.0)
--- NOTE | 2025-03-06 02:36 | PTCARENOTE ---
Received Pt from day RN. Pt having complaints of being itchy on head and upper chest. Assessment done, no rash noted just red area where Pt is itching. Night HOLIDAY DETECTOR OPERATOR made aware, Atarax ordered. Pt remains on heparin gtt at 20ml/hr last ptt was first
therapeutic. pt NPO at midnight for planned procedure 03/06. Call cervantes within reach. Assessment care and vitals as charted.
[2025-03-06] MEDS: ANCEF 5 IV ×3 (03:10→17:58)
--- NOTE | 2025-03-06 04:46 | PTCARENOTE ---
Pt having a weight gain of 6lbs. General anasarca at a +2. left arm +4 pitting. right arm +2 pitting. b/l flank +3 pitting. Night SUPERVISOR BLASTING made aware. Pt continues on heparin gtt.
[2025-03-06 06:48] LABS: APTT 120.9 Sec (23.4-35.0)
[2025-03-06 07:38] LABS: Blood Urea Nitrogen 16 mg/dl (9-20); Calcium 7.9 mg/dl (8.4-10.2); Carbon Dioxide 23 mmol/L (22-30); Chloride 107 mmol/L (98-107); Estimated Creatinine Clearance 50 ml/min; Glucose 132 mg/dl (70-99); Potassium 3.9 mmol/L (3.5-5.1); Sodium 135 mmol/L (135-145); eGFR 51.45
--- NOTE | 2025-03-06 07:45 | W.PN.HOSP.TC ---
Today's Communication/Plan
-
OR today
Assessment / Plan
Assessment / Plan
Gen-AAOx3, NAD
HEENT-NC, AT, anicteric, clear oral mm
Neck-supple
CV-reg, no M, +S1/S2
Lungs-clear B/L
Abd-soft, NT, ND, right upper quadrant drain intact
Ext-LUE edema
Musculoskeletal-no cyanosis, clubbing, left foot dressing
Skin-warm and dry
Neuro-grossly non-focal
Psych-calm, cooperative
Septic shock - due to to left fifth metatarsal abscess, acute osteomyelitis. Sepsis and shock resolved.
Chronic left lower extremity weakness due to back injury during procedure 2019
-Appreciate ID input, continue IV daptomycin through 03/16/2025 for 6 weeks
-Shock resolved. Off vasopressors. Blood cultures negative so far. Wound culture shows MRSA.
-Leukocytosis improved overall. Afebrile.
-Unable to have MRI due to spinal stimulator not active
-Wound culture grew MRSA
-Patient underwent left partial fifth ray amputation 02/03. Path report from 02/04 shows focal acute osteomyelitis
-Bone culture of the proximal margin 5th metatarsal was positive for osteomyelitis
-Podiatry plans for repeat debridement of soft tissue 03/06. NPO.
PAD -On 03/04/2025, patient underwent lower extremity angiogram with intravascular lithotripsy to left posterior tibial artery occlusion, left popliteal artery and tibioperoneal trunk, balloon angioplasty of left posterior tibial artery and left
tibioperoneal trunk.
Vascular surgery mentioned that now he has good flow into the left foot.
Acute kidney injury -resolved. Creatinine stabilized between 1. 1.1 and 1.2, up to 1.4 today.
- due to septic shock. Anuric. Gonzalez catheter was placed. Etiology of JESUS most likely due to septic shock and medications and less likely due to contrast-induced nephropathy as contrast exposure was on 02/01, creatinine was 3.3 morning of 02/01.
-Appreciate nephrology input, dialysis started 02/02. Dialysis IJ catheter was placed.
-High anion gap metabolic acidosis due to septic shock, lactic acidosis. Metabolic acidosis resolved. Off sodium bicarbonate IV.
-Hold metformin, lisinopril, hydrochlorothiazide, trend creatinine, no nephrotoxic drugs or NSAIDs
-Last dialyzed 02/22. Patient currently having renal recovery, nephrology to monitor and determine any further needs for dialysis
Renal function back to baseline, no need for further hemodialysis per nephrology. Dialysis catheter to be removed today, 03/04.
Weight is up 3 kg overnight. May be related to IV fluids. Will discuss with nephrology about giving Lasix.
Sepsis without septic shock -sepsis resolved.
Acute cholecystitis
-With fever and leukocytosis on 02/23
-Appreciate general surgery input, recommend biliary drain since patient is high risk for surgical intervention
-Status post percutaneous cholecystostomy tube 02/24 with IR, cx neg
-Resolving status post IV Zosyn, ID recommends augmentin twice daily through 03/06/25
-Lactic acid normal, off Levophed 02/25
-Needs outpatient follow-up with Dr. Bernabe Juarez
Acute calculous cholecystitis -cholecystostomy tube placed by IR 02/24. Seen by general surgery and recommended conservative management with outpatient follow-up.
Ileus -resolved. Did have some abdominal pain overnight and was treated with morphine. Obstruction series ordered, report pending. Bowels are moving however.
- developed nausea and vomiting on 02/03. Briefly treated with NG tube.
- Repeat x-ray 02/07 showed air throughout the small bowel, few loops borderline prominent, nonspecific air-fluid levels, most likely ileus. No free air.
- Held narcotics/IV Dilaudid prn (started Tylenol for pain control instead)
- Patient having bowel movements
- Repeat x-ray from 02/12/25 was okay
Acute diarrhea -likely due to Augmentin use, now discontinued. Stool C. difficile negative. Diarrhea improved with as needed Imodium.
Lactic acidosis due to sepsis/shock - normalized.
-Differential diagnosis include metformin induced versus worsening sepsis
-Metformin discontinued 02/01
-MAP has been consistently greater than 65
Aspiration pneumonitis/acute hypoxic respiratory failure - triggered by vomiting, possibly triggered by ileus. Placed back on 2 L nasal cannula last night by nursing for pulse ox in the high 80% range. Encourage incentive spirometer.
Acute TME - due to sepsis, shock, critical illness. Mental status much improved and now at baseline.
Odynophagia secondary to Severe Esophagitis found on EGD 02/13/25
Poor PO Intake Secondary to Above
-GI performed EGD on 02/13/25: showed severe esophagitis
Path report shows acute ulcerative esophagitis, immunohistochemical stains negative for HSV 1 and 2, CMV. No fungal organisms identified.
-Continue PPI BID and Carafate
-On discharge cont Protonix PO BID x 4 weeks then daily and carafate AC and HS with wean to BID in 2 weeks then daily x 2 weeks then stop
Acute GI bleed/acute esophagitis -GI bleed resolved. Stools have been brown.
EGD performed 02/13 shows LA grade D reflux esophagitis without bleeding. Normal stomach, normal duodenum. Dobbhoff tube clogged as per nursing. Now that patient tolerating soft diet can DC Dobbhoff tube.
-Acute GI bleed exacerbated by anticoagulation with IV heparin.
-Continue PPI twice daily and Carafate.
Acute blood loss anemia mixed with anemia of renal failure and sepsis
-Due to GI bleed as above. Admission hemoglobin was 11.6. May have baseline chronic anemia of unclear etiology.
Suspect component of anemia related to critical illness as well as renal failure.
- 02/26, hemoglobin down to 6.5, CT without contrast negative for intraperitoneal bleed, stools are brown
Transfused 1 unit of blood on 02/26. Hemoglobin now stable, 8.2.
Nonblanching skin lesions -unclear if vasculitis, possibly due to vancomycin. Not truly palpable purpura. Now off vancomycin and on daptomycin per ID.
Hypokalemia -replete as needed
Mild Hematuria -- RESOLVED
- Noted on 02/12/25, later resolved while on Heparin Drip
- Monitor for now
LUE edema
LUE pain from needlesticks
- Doppler ultrasound negative for DVT, repeat US 02/27 also neg
- Ordered scheduled Tylenol 1000 mg Q8H (which is helping)
Acute on chronic heart failure with preserved ejection fraction
- Cardiology saw patient this hospitalization, continue dialysis as per nephrology
- Dr. Munoz is his electronic assembler
Troponin elevation
- Suspect acute nonischemic myocardial injury due to septic shock. Troponins trended down.
Permanent atrial fibrillation -
-Continue Heparin Drip. Was on Xarelto prior to admission -- plan to transition back to oral anticoagulation once no further procedures planned
-Outpatient Toprol XL added back on 02/12/25
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
Known moderate nonobstructive coronary disease in 2021
-Continue statin
2 consecutive episodes of VT overnight 02/10/25 to 02/11/25
-Seen by cardiology this admission
- Resumed Toprol XL
Essential hypertension -hypotensive. Stop hydralazine.
Hyponatremia
- Resolved.
Hypomagnesemia
- Replete as needed
Hyperphosphatemia
- due to JESUS. Improving. Repeat phosphorus normal.
DM 2 with hyperglycemia -glucoses have improved overnight, 138 this morning, 210 last night. Most of the daytime glucoses are below 180.
-At home he was on insulin degludec 24 units at bedtime, NovoLog sliding scale with meals, metformin.
-Hemoglobin A1c 7.1 on 01/13/2025
-Hold metformin 1000 mg daily due to JESUS and lactic acidosis earlier this hospitalization
-Dr. Pathak is his hair spring cutter
Continue Lantus 12 units at bedtime, continue low resistance NovoLog scale.
Hyperlipidemia
- Resumed statin
Chronic back pain
-Patient sees a pain management provider outpatient
Obesity due to excess calories
DVT Prophylaxis: Heparin Drip.
Code Status: Full code
Dispo - acute rehab when medically stable, he has been accepted to [facility].
Anticipated Discharge: > 48 hours
Subjective/Interval History
-
Date of Service: March 06, 2025
Patient seen and examined, no complaints.
Objective Data
-
Labs:
Laboratory Results
03/06/25 03/06/25 03/06/25
00:34 06:15 13:30
APTT 100.2 H 120.9 H Pending
Sodium 135
Potassium 3.9
Chloride 107
Carbon Dioxide 23
BUN 16
Creatinine 1.4 H
Glucose 132 H
Calcium 7.9 L
Vital Signs:
Vital Signs
Temp Pulse Resp BP Pulse Ox
97.6 F 72 13 138/74 95
03/06/25 03:00 03/06/25 06:00 03/06/25 06:00 03/06/25 06:00 03/05/25 23:12
I&O
03/05/25 03/06/25 03/07/25
06:59 06:59 06:59
Intake Total 300 / 300
Output Total 525 / 525 650 / 650
Balance -525 / -525 -350 / -350
Review of Systems
-
History Source: Patient
All other systems: Reviewed and negative
--- NOTE | 2025-03-06 08:40 | PTCARENOTE ---
Patient received from retail shift supervisor. Patient resting comfortably in bed. AAO, VSS. No events noted overnight however with a weight gain, hospitalist aware. No complaints of pain at this time. Currently on Room Air. Continuing ABX. NPO at
midnight for OR today. Heparin gtt on hold for OR. Call cervantes in reach.
--- NOTE | 2025-03-06 08:45 | W.PN.NEPH.PH ---
Today's Communication / Plan
-
Observe
Check postvoid bladder scan
Follow-up BMP in a
Assessment/Plan
-
IMP:
TME
Septic shock
Lactic acidosis
Sepsis 2/2 to Diabetic left foot cellulitis w/ lymphangitis
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
Acute kidney injury-baseline cr 0.9-1.1
Peripheral artery disease
hyponatremia
IDDM 2
Essential hypertension
Constipation
A-fib�permanent
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
HLD
Obesity due to excess calories
cholecystitis status post cholecystotomy tube
Plan:
Remains on daptomycin
Creatinine up to 1.4 nonoliguric postop day 2 angiogram
Check postvoid bladder scan to assure there is no obstructive component
Creatinine may have also increased due to hypotension yesterday morning
PermCath out
BP more stable on low-dose Procardia and metoprolol
d/w on phone and pt
d/w nursing
-
-
Date of Service: March 06, 2025
CC / HPI / ROS
-
Chief Complaint:
JESUS
History of Present Illness:
JESUS/HD
JESUS/Cr up to 1.4
Cholecystotomy tube placed with good drainage 02/24/25
Hemodynamically more stable on Procardia
Review of Systems:
Nonoliguric
no cp or sob noted
no fever
not out of bed
Labs
-
Labs:
WBC 6.2 10^3/uL (4.8-10.8) 03/05/25 06:15
RBC 2.84 10^6/uL (4.70-6.10) L 03/05/25 06:15
Hgb 8.2 g/dL (13.0-18.0) L 03/05/25 06:15
Hct 25.9 % (39.0-52.0) L 03/05/25 06:15
Plt Count 349 10^3/uL (130-400) 03/05/25 06:15
Sodium 135 mmol/L (135-145) 03/06/25 06:15
Potassium 3.9 mmol/L (3.5-5.1) 03/06/25 06:15
Chloride 107 mmol/L (98-107) 03/06/25 06:15
Carbon Dioxide 23 mmol/L (22-30) 03/06/25 06:15
BUN 16 mg/dl (9-20) 03/06/25 06:15
Creatinine 1.4 mg/dL (0.7-1.3) H 03/06/25 06:15
eGFR 51.45 03/06/25 06:15
Glucose 132 mg/dl (70-99) H 03/06/25 06:15
Calcium 7.9 mg/dl (8.4-10.2) L 03/06/25 06:15
Phosphorus 4.4 mg/dl (2.5-4.5) 02/26/25 03:52
Zhl-I-Ykcgeerjeoh Pept > 63512 pg/ml 02/01/25 20:16
Albumin 3.0 g/dl (3.5-5.0) L 02/24/25 04:40
Physical Exam
-
Vital Signs:
Vital Signs
Temp Pulse Resp BP Pulse Ox
97.8 F 72 13 138/74 95
03/06/25 07:00 03/06/25 06:00 03/06/25 06:00 03/06/25 06:00 03/05/25 23:12
Cardiovascular:: Regular rate and rhythm
Respiratory:: Bilateral: CTA
Lung Excursion:: Normal
Abdomen:: Nontender and Soft
Bowel Sounds:: Normal
Extremity Edema:: None: Bilateral:
Gonzalez Catheter: No
[2025-03-06] MEDS: CARAFATE SUSPENSION PO ×5 (09:08→21:05)
[2025-03-06] MEDS: DESENEX/MITRAZOL/ZEASORB 1 APPLIC TOPICAL ×2 (09:10→21:05)
[2025-03-06] MEDS: NOVOLOG FLEXPEN-LOW RESISTANCE SC ×3 (09:10→18:10)
[2025-03-06] MEDS: LIDOCAINE 4% PATCH TOPICAL ×2 (09:11→09:36)
[2025-03-06] MEDS: PROTONIX 40 MG PO ×2 (09:12→21:03)
[2025-03-06] MEDS: TOPROL XL 25 MG PO ×2 (09:13→21:04)
[2025-03-06] MEDS: TYLENOL 975 MG PO ×3 (09:14→21:04)
[2025-03-06] MEDS: VISBIOME 2 CAP PO (09:14)
--- NOTE | 2025-03-06 09:15 | W.PN.ID1 ---
Date of Service
Date of Service: March 06, 2025
Today's Communication
Continue current abx's.
Assessment / Plan
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
. 02/03/25 s/p left foot partial 5th ray amputation
. OR cx's : MRSA
. Bone path proximal margin + osteomyelitis.
# PAD, left 5th ischemic toe
. 03/04 s/p LLE endo-vascularization
# s/p JESUS
. HD started 02/02. DC'd 02/24
. Renal function recovered
# DM2 with neuropathy
- Podiatry planning for I+D, revision of left 5th ray amp today
- Continue Daptomycin IV through 03/16/25 ( 6 weeks abx) from ray amp or dc sooner once surgical cure achieved.
- Follow weekly CK while on Dapto.
# Side effects due to Augmentin.
# Acute cholecystitis
- 02/24 s/p perc giacomo, cx negative
-Discontinued Augmentin 500mg po bid due to c/o diarrhea, GI upset. C. diff neg.
-Continue cefazolin 1g IVq8 and metronidazole 500mg IV q12 through 03/08/25.
# Conditions [employer]PUT[employer]CHIT[employer]
Diabetes mellitus type 2
Hypertension
Atrial fibrillation on Xarelto
pacemaker placement
Chronic pain with spinal stimulator, not active; stimulator incompatible with MRI
Chronic left leg weakness due to history of back injury during lumbar procedure 2019
Lumbar laminectomy
Chief Complaint
-: Other (osteo of left fifth metatarsal)
Subjective / Review of Systems
Foot surgery today.
Appetite poor.
Vital Signs / Physical Exam
Vital Signs
Vital Signs
Temp Pulse Resp BP Pulse Ox
97.8 F 72 13 138/74 95
03/06/25 07:00 03/06/25 06:00 03/06/25 06:00 03/06/25 06:00 03/05/25 23:12
Physical Exam
Constitutional: No Acute Distress and Comfortable
Cardiovascular: Irregular Rate and S1/S2
Extremities: Negative Edema
Neurological: AO x 3
Lines: PICC (RUE)
Objective Data
Lab Data
Lab Results
03/05/25 06:15
03/06/25 06:15
ESR 78 mm/hour (0-20) H 01/28/25 12:23
PT 14.8 Sec (11.4-14.6) H 02/20/25 12:25
INR 1.11 02/20/25 12:25
APTT 120.9 Sec (23.4-35.0) H 03/06/25 06:15
Estimated Creat Clear 50 ml/min 03/06/25 06:15
Lactic Acid 1.3 mmol/L (0.7-2.0) 02/25/25 09:37
Total Bilirubin 1.0 mg/dl (0.2-1.3) 02/24/25 04:40
AST 18 U/L (17-59) 02/24/25 04:40
ALT 13 U/L (0-50) 02/24/25 04:40
Alkaline Phosphatase 143 U/L (38-126) H 02/24/25 04:40
C-Reactive Protein 228.10 mg/L (0.0-10.00) H 01/28/25 12:23
Most recent labs reviewed.
Micro Results:
03/02/25 12:26 C. difficile GDH Antigen & Toxins - Final
Feces/Stool Negative for toxigenic C.difficile
02/24/25 17:00 Wound Culture - Final
Gallbladder No growth
Gram Stain - Final
02/03/25 21:30 Wound Culture - Final
Foot - Left Staph aureus MRSA
Gram Stain - Final
02/03/25 21:30 Anaerobic Culture - Final
Foot - Left NO ANAEROBES ISOLATED
02/03/25 21:30 Tissue Culture - Final
Foot - Left Staph aureus MRSA
Gram Stain - Final
02/02/25 13:44 Urine Culture - Final
Urine NO GROWTH
01/29/25 04:07 Blood Culture - Final
Blood/Venous No Growth - Final Report
01/28/25 12:24 Blood Culture - Final
Blood/Venous No Growth - Final Report
01/31/25 09:04 Wound Culture - Final
Foot - Left Staph aureus MRSA
Gram Stain - Final
02/01/25 19:47 Influenza Types A & B (GITFY) - Final
Nasal Swab Negative for Influenza A & B, NAAT
Negative results must be combined with clinical observations
and patient history.
Nucleic Acid Amplification test (NAAT)performed on the
[employer] platform.
01/30/25 10:04 Wound Culture - Final
Foot - Left Staph aureus MRSA
Gram Stain - Final
01/28/25 17:44 MRSA Screen - Final
Nose No Methicillin Resistant Staphylococcus aureus isolated.
Imaging:
01/28/25 Left foot XRAY: No acute osseous abnormality. Mild soft tissue swelling along the lateral forefoot.
02/01/25 CXR: Hazy increased density over the left lower hemithorax, probably mainly due to a posteriorly layering pleural effusion.
02/03/25 CXR: Parenchymal opacity within the right lower lung and the left mid to lower lung, similar to recent radiograph. Main differential considerations of atelectasis and/or pneumonia.
02/04/25 CT LE: 1. Interval amputation of the phalanges of the left 5th toe and the 5th metatarsal head since the prior exam performed 02/01/2025.
2. Large soft tissue wound distal to the 5th metatarsal with soft tissue emphysema extending deep to the lateral cortex of the 4th metatarsal head.
3. Moderate subcutaneous edema throughout the left lower leg and thigh.
4. Moderate to severe calcific atherosclerotic plaque throughout the left lower extremity.
5. Small to moderate-sized left knee joint effusion.
6. Severe anasarca in the left lateral abdominal wall.
7. Moderate retroperitoneal and extraperitoneal edema in the pelvis.
8. Severe diffuse urinary bladder wall thickening with adjacent perivesical inflammation suggesting ACUTE CYSTITIS. Chronic urinary bladder outlet obstruction is also likely present given severe enlargement of the prostate gland.
9. Mild circumferential wall thickening and fluid distention of the rectum suggesting an acute prostatitis. Rectal tube in place.
02/07/25 CXR/AXR: Extremely low lung volumes. Some bibasilar opacification which could represent atelectasis and/or pneumonia and small bilateral pleural effusions, left possibly greater than right. Air seen throughout small bowel, few loops
borderline prominent, nonspecific air-fluid levels, most likely representing ileus. No free air.
02/23/25 Abd US: Gallstones and sludge present with a positive sonographic Edwards's sign and mild wall thickening. Findings likely represent acute cholecystitis. There is no evidence of biliary duct dilation. The common bile duct measures 6 mm.
02/24/25 HIDA: There is no uptake within the gallbladder seen on initial and post morphine images. Findings are consistent with acute cholecystitis.
[2025-03-06] MEDS: FLAGYL 500 MG 100 IV ×2 (09:49→21:04)
[2025-03-06 12:07] LABS: Glucose - Point of Care 119 mg/dl (70-99)
[2025-03-06] MEDS: CUBICIN 16 MG IV (12:43)
--- NOTE | 2025-03-06 13:12 | PTCARENOTE ---
Patient to OR
--- NOTE | 2025-03-06 14:30 | W.SUR.POST ---
Surgical Immediate Post Op
Note
Pre Op Diagnosis: Left foot complicated wound with residual osteomyelitis 5th metatarsal bone
Post Op Diagnosis: same
Procedure Performed: Partial 5th metatarsal amputation with wound debridement to the level of bone. Wound vac application
Primary Surgeon: Thomas
Secondary Surgeons: n/a
Anesthesia: MAC with local anesthesia - 10 cc's 1% lidocaine plain and 0.5 % Marcaine plain
Estimated Blood Loss: 5 cc's
Fluids: none
Drains/Shunts: VAC
Specimens/Cultures: 5th metatarsal bone and proximal clean margin
Doppler/Duplex/Angio (Y/N):
Complications: none
Operative Findings: remaining tissue appears clean, remaining bone appears hard and viable
[2025-03-06 14:38] LABS: Glucose - Point of Care 91 mg/dl (70-99)
--- NOTE | 2025-03-06 16:27 | WOUNDNOTE ---
WOC RN NOTE: Patient s/p Partial 5th ray amputation with wound debridement to
the level of bone with wound vac placement. Dr. Guzman to change wound vac on 03/08 and WOC RN to change on 03/10. Plan confirmed with Dr. Guzman and order entered by this scenario writer. Will follow up with patient for vac change.
--- NOTE | 2025-03-06 16:28 | CM ---
OR today for partial 5th ray amputation with wound debridement to level of bone. Wound vac applied. 02/26/25 PM&R consult with rec for acute rehab, 03/01/25 therapy rec for same. Referral placed to [facility] which accepted pending bed availability.
Therapy evaluation 03/05/25 rec for SNF. Discussed with and daughter. Provided Medicare.Gov list. Family intends on patient going to [facility] for acute rehab. Patient has Medicare as primary. No insurance auth required.
--- NOTE | 2025-03-06 16:38 | W.PN.UPDATE ---
Update Note
Progress Note Update
reviewed chart. came to unit but patient had just returned from surgery. will return in the am for psych consult.
[2025-03-06] MEDS: PROCARDIA XL (EXTENDED RELEASE) 30 MG PO (17:59)
[2025-03-06] MEDS: LIPITOR 10 MG PO (18:00)
[2025-03-06 18:06] LABS: Glucose - Point of Care 144 mg/dl (70-99)
[2025-03-06] MEDS: HEPARIN 25000 UNITS/250 ML IV (21:00)
[2025-03-06] MEDS: REMOVE LIDOCAINE PATCH REMOVE (21:05)
[2025-03-06] MEDS: LANTUS 0.12 UNITS SC (22:41)
[2025-03-06 22:51] LABS: Glucose - Point of Care 223 mg/dl (70-99)
[2025-03-07] VITALS (16 sets, daily range): BP systolic 106–141; BP diastolic 46–99; PULSE 75; BMI 31.4
[2025-03-07 00:41] LABS: APTT 77.9 Sec (23.4-35.0)
[2025-03-07] MEDS: ANCEF 5 IV ×3 (01:32→17:03)
--- NOTE | 2025-03-07 01:50 | PTCARENOTE ---
Pt appearing more awake and alert this evening. Pt awake to watch football game with and son. Pt had no complains at this time. Wound Vac on left foot intact, dressing clean and dry. Q4 neuro vascular checks maintained. Assessment care and
vitals as charted. Call cervantes within reach.
[2025-03-07 06:41] LABS: Hematocrit 26.0 % (39.0-52.0); Hemoglobin 8.2 g/dL (13.0-18.0); Mean Corp Hgb Conc. 31.5 g/dL (33.0-37.0); Mean Corpuscular Volume 90.9 fL (80.0-94.0); Nucleated Red Blood Cells % 0 % (-); Platelet Count 341 10^3/uL (130-400); Red Cell Dist. Width 15.6 % (11.5-14.5)
[2025-03-07 07:13] LABS: APTT 85.8 Sec (23.4-35.0)
[2025-03-07 07:19] LABS: Blood Urea Nitrogen 18 mg/dl (9-20); Calcium 8.1 mg/dl (8.4-10.2); Carbon Dioxide 19 mmol/L (22-30); Chloride 109 mmol/L (98-107); Estimated Creatinine Clearance 54 ml/min; Glucose 178 mg/dl (70-99); Potassium 4.3 mmol/L (3.5-5.1); Sodium 135 mmol/L (135-145); eGFR 56.23
--- NOTE | 2025-03-07 07:41 | W.PN.HOSP.TC ---
Today's Communication/Plan
-
Add aspart 3 units with meals
Resume PT/OT
Psychiatry consult
Assessment / Plan
Assessment / Plan
Gen-AAOx3, NAD
HEENT-NC, AT, anicteric, clear oral mm
Neck-supple
CV-reg, no M, +S1/S2
Lungs-clear B/L
Abd-soft, NT, ND, right upper quadrant drain intact
Ext-LUE edema
Musculoskeletal-no cyanosis, clubbing, left foot dressing, with wound VAC
Skin-warm and dry
Neuro-grossly non-focal
Psych-calm, cooperative
Septic shock - due to to left fifth metatarsal abscess, acute osteomyelitis. Sepsis and shock resolved.
Chronic left lower extremity weakness due to back injury during procedure 2019
-Appreciate ID input, continue IV daptomycin through 03/16/2025 for 6 weeks
-Shock resolved. Off vasopressors. Blood cultures negative so far. Wound culture shows MRSA.
-Leukocytosis improved overall. Afebrile.
-Unable to have MRI due to spinal stimulator not active
-Wound culture grew MRSA
-Patient underwent left partial fifth ray amputation 02/03. Path report from 02/04 shows focal acute osteomyelitis
-Bone culture of the proximal margin 5th metatarsal was positive for osteomyelitis
-Patient underwent left foot partial fifth ray amputation with wound debridement to the level of the bone and VAC placement, 03/06.
PAD -On 03/04/2025, patient underwent lower extremity angiogram with intravascular lithotripsy to left posterior tibial artery occlusion, left popliteal artery and tibioperoneal trunk, balloon angioplasty of left posterior tibial artery and left
tibioperoneal trunk.
Vascular surgery mentioned that now he has good flow into the left foot.
Acute kidney injury -resolved. Creatinine stable, 1.3 today.
- due to septic shock. Anuric. Gonzalez catheter was placed. Etiology of JESUS most likely due to septic shock and medications and less likely due to contrast-induced nephropathy as contrast exposure was on 02/01, creatinine was 3.3 morning of 02/01.
-Appreciate nephrology input, dialysis started 02/02. Dialysis IJ catheter was placed.
-High anion gap metabolic acidosis due to septic shock, lactic acidosis. Metabolic acidosis resolved. Off sodium bicarbonate IV.
-Hold metformin, lisinopril, hydrochlorothiazide, trend creatinine, no nephrotoxic drugs or NSAIDs
-Last dialyzed 02/22. Patient currently having renal recovery, nephrology to monitor and determine any further needs for dialysis
Renal function back to baseline, no need for further hemodialysis per nephrology. Dialysis catheter to be removed today, 03/04.
Weight is up 4 kg since 03/05. May be related to IV fluids. Will defer to nephrology regarding starting diuretics. Currently not on diuretics. Discussed with Dr. Weber.
Sepsis without septic shock -sepsis resolved.
Acute cholecystitis
-With fever and leukocytosis on 02/23
-Appreciate general surgery input, recommend biliary drain since patient is high risk for surgical intervention
-Status post percutaneous cholecystostomy tube 02/24 with IR, cx neg
- Sepsis resolved. Currently on cefazolin and metronidazole until 03/08 per ID.
-Lactic acid normal, off Levophed 02/25
-Needs outpatient follow-up with Dr. Bernabe Juarez
Acute calculous cholecystitis -cholecystostomy tube placed by IR 02/24. Seen by general surgery and recommended conservative management with outpatient follow-up.
Ileus -resolved. Did have some abdominal pain overnight and was treated with morphine. Obstruction series ordered, report pending. Bowels are moving however.
- developed nausea and vomiting on 02/03. Briefly treated with NG tube.
- Repeat x-ray 02/07 showed air throughout the small bowel, few loops borderline prominent, nonspecific air-fluid levels, most likely ileus. No free air.
- Held narcotics/IV Dilaudid prn (started Tylenol for pain control instead)
- Patient having bowel movements
- Repeat x-ray from 02/12/25 was okay
Acute diarrhea -likely due to Augmentin use, now discontinued. Stool C. difficile negative. Diarrhea improved with as needed Imodium.
Lactic acidosis due to sepsis/shock - normalized.
-Differential diagnosis include metformin induced versus worsening sepsis
-Metformin discontinued 02/01
-MAP has been consistently greater than 65
Aspiration pneumonitis/acute hypoxic respiratory failure - triggered by vomiting, possibly triggered by ileus. Placed back on 2 L nasal cannula last night by nursing for pulse ox in the high 80% range. Encourage incentive spirometer.
Acute TME - due to sepsis, shock, critical illness. Mental status much improved and now at baseline.
Odynophagia secondary to Severe Esophagitis found on EGD 02/13/25
Poor PO Intake Secondary to Above
-GI performed EGD on 02/13/25: showed severe esophagitis
Path report shows acute ulcerative esophagitis, immunohistochemical stains negative for HSV 1 and 2, CMV. No fungal organisms identified.
-Continue PPI BID and Carafate
-On discharge cont Protonix PO BID x 4 weeks then daily and carafate AC and HS with wean to BID in 2 weeks then daily x 2 weeks then stop
Acute GI bleed/acute esophagitis -GI bleed resolved. Stools have been brown.
EGD performed 02/13 shows LA grade D reflux esophagitis without bleeding. Normal stomach, normal duodenum. Dobbhoff tube clogged as per nursing. Now that patient tolerating soft diet can DC Dobbhoff tube.
-Acute GI bleed exacerbated by anticoagulation with IV heparin.
-Continue PPI twice daily and Carafate.
Acute blood loss anemia mixed with anemia of renal failure and sepsis
-Due to GI bleed as above. Admission hemoglobin was 11.6. May have baseline chronic anemia of unclear etiology.
Suspect component of anemia related to critical illness as well as renal failure.
- 02/26, hemoglobin down to 6.5, CT without contrast negative for intraperitoneal bleed, stools are brown
Transfused 1 unit of blood on 02/26. Hemoglobin now stable, 8.2.
Nonblanching skin lesions -unclear if vasculitis, possibly due to vancomycin. Not truly palpable purpura. Now off vancomycin and on daptomycin per ID.
Hypokalemia -replete as needed
Mild Hematuria -- RESOLVED
- Noted on 02/12/25, later resolved while on Heparin Drip
- Monitor for now
LUE edema
LUE pain from needlesticks
- Doppler ultrasound negative for DVT, repeat US 02/27 also neg
- Ordered scheduled Tylenol 1000 mg Q8H (which is helping)
Acute on chronic heart failure with preserved ejection fraction
- Cardiology saw patient this hospitalization, continue dialysis as per nephrology
- Dr. Munoz is his oral surgery technician
Troponin elevation
- Suspect acute nonischemic myocardial injury due to septic shock. Troponins trended down.
Permanent atrial fibrillation -
-Continue Heparin Drip. Was on Xarelto prior to admission -- plan to transition back to oral anticoagulation once no further procedures planned
-Outpatient Toprol XL added back on 02/12/25
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
Known moderate nonobstructive coronary disease in 2021
-Continue statin
2 consecutive episodes of VT overnight 02/10/25 to 02/11/25
-Seen by cardiology this admission
- Resumed Toprol XL
Essential hypertension -hypotensive. Stop hydralazine.
Hyponatremia
- Resolved.
Hypomagnesemia
- Replete as needed
Hyperphosphatemia
- due to JESUS. Improving. Repeat phosphorus normal.
DM 2 with hyperglycemia -glucoses have improved overnight, 178 this morning, 223 last night. Most of the daytime glucoses are below 180.
-At home he was on insulin degludec 24 units at bedtime, NovoLog sliding scale with meals, metformin.
-Hemoglobin A1c 7.1 on 01/13/2025
-Hold metformin 1000 mg daily due to JESUS and lactic acidosis earlier this hospitalization
-Dr. Pathak is his market research worker
Continue Lantus 12 units at bedtime, continue low resistance NovoLog scale. Add aspart 3 units with meals.
Hyperlipidemia
- Resumed statin
Chronic back pain
-Patient sees a pain management provider outpatient
Obesity due to excess calories
DVT Prophylaxis: Heparin Drip.
Code Status: Full code
Dispo - acute rehab when medically stable, he has been accepted to [facility].
Anticipated Discharge: > 48 hours
Subjective/Interval History
-
Date of Service: March 07, 2025
Patient seen and examined. No complaints.
Objective Data
-
Labs:
Laboratory Results
03/07/25 03/07/25
00:22 06:30
WBC 10.3
Hgb 8.2 L
Hct 26.0 L
Plt Count 341
APTT 77.9 H 85.8 H
Sodium 135
Potassium 4.3
Chloride 109 H
Carbon Dioxide 19 L
BUN 18
Creatinine 1.3
Glucose 178 H
Calcium 8.1 L
Vital Signs:
Vital Signs
Temp Pulse Resp BP Pulse Ox
97.9 F 69 12 141/80 96
03/07/25 03:20 03/07/25 06:00 03/07/25 06:00 03/07/25 06:00 03/06/25 22:05
I&O
03/06/25 03/07/25 03/08/25
06:59 06:59 06:59
Intake Total 300 / 300 688 / 688
Output Total 650 / 650 1740 / 1740
Balance -350 / -350 -1052 / -1052
Review of Systems
-
History Source: Patient
All other systems: Reviewed and negative
[2025-03-07 09:09] LABS: Glucose - Point of Care 176 mg/dl (70-99)
--- NOTE | 2025-03-07 09:28 | W.PN.ID1 ---
Date of Service
Date of Service: March 07, 2025
Today's Communication
Continue abx's.
Assessment / Plan
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
. 02/03/25 s/p left foot partial 5th ray amputation
OR cx's : MRSA
02/03/25 Bone path proximal margin + osteomyelitis.
. 03/06 s/p Partial 5th ray amputation with wound debridement to the level of bone.
Proximal margin path pending
. Continue Daptomycin IV through 03/16/25 ( 6 weeks abx) from ray amp or dc sooner once surgical cure achieved.
Follow weekly CK while on Dapto.
# PAD, left 5th ischemic toe
. 03/04 s/p LLE endo-vascularization
# Acute cholecystitis
- 02/24 s/p perc giacomo, cx negative
-Discontinued Augmentin 500mg po bid due to c/o diarrhea, GI upset. C. diff neg.
-Continue cefazolin 1g IVq8 and metronidazole 500mg IV q12 through 03/08/25.
# s/p JESUS
. HD started 02/02. DC'd 02/24
. Renal function recovered
# DM2 with neuropathy
# Conditions SAP BASIS ARCHITECT
Diabetes mellitus type 2
Hypertension
Atrial fibrillation on Xarelto
pacemaker placement
Chronic pain with spinal stimulator, not active; stimulator incompatible with MRI
Chronic left leg weakness due to history of back injury during lumbar procedure 2019
Lumbar laminectomy
Chief Complaint
-: Other (osteo of left fifth metatarsal)
Subjective / Review of Systems
Ate breakfast. Appetite better. No diarrhea.
Vital Signs / Physical Exam
Vital Signs
Vital Signs
Temp Pulse Resp BP Pulse Ox
97.9 F 69 12 141/80 96
03/07/25 08:00 03/07/25 06:00 03/07/25 06:00 03/07/25 06:00 03/06/25 22:05
Physical Exam
Constitutional: No Acute Distress and Comfortable
Cardiovascular: Irregular Rate and S1/S2
Extremities: Negative Edema
Wound: Other (Left foot wound vac in place)
Neurological: AO x 3
Lines: PICC (RUE)
Objective Data
Lab Data
Lab Results
03/07/25 06:30
03/07/25 06:30
ESR 78 mm/hour (0-20) H 01/28/25 12:23
PT 14.8 Sec (11.4-14.6) H 02/20/25 12:25
INR 1.11 02/20/25 12:25
APTT 85.8 Sec (23.4-35.0) H 03/07/25 06:30
Estimated Creat Clear 54 ml/min 03/07/25 06:30
Lactic Acid 1.3 mmol/L (0.7-2.0) 02/25/25 09:37
Total Bilirubin 1.0 mg/dl (0.2-1.3) 02/24/25 04:40
AST 18 U/L (17-59) 02/24/25 04:40
ALT 13 U/L (0-50) 02/24/25 04:40
Alkaline Phosphatase 143 U/L (38-126) H 02/24/25 04:40
C-Reactive Protein 228.10 mg/L (0.0-10.00) H 01/28/25 12:23
Most recent labs reviewed.
Micro Results:
03/02/25 12:26 C. difficile GDH Antigen & Toxins - Final
Feces/Stool Negative for toxigenic C.difficile
02/24/25 17:00 Wound Culture - Final
Gallbladder No growth
Gram Stain - Final
02/03/25 21:30 Wound Culture - Final
Foot - Left Staph aureus MRSA
Gram Stain - Final
02/03/25 21:30 Anaerobic Culture - Final
Foot - Left NO ANAEROBES ISOLATED
02/03/25 21:30 Tissue Culture - Final
Foot - Left Staph aureus MRSA
Gram Stain - Final
02/02/25 13:44 Urine Culture - Final
Urine NO GROWTH
01/29/25 04:07 Blood Culture - Final
Blood/Venous No Growth - Final Report
01/28/25 12:24 Blood Culture - Final
Blood/Venous No Growth - Final Report
01/31/25 09:04 Wound Culture - Final
Foot - Left Staph aureus MRSA
Gram Stain - Final
02/01/25 19:47 Influenza Types A & B (GIFTY) - Final
Nasal Swab Negative for Influenza A & B, NAAT
Negative results must be combined with clinical observations
and patient history.
Nucleic Acid Amplification test (NAAT)performed on the
[employer] platform.
01/30/25 10:04 Wound Culture - Final
Foot - Left Staph aureus MRSA
Gram Stain - Final
01/28/25 17:44 MRSA Screen - Final
Nose No Methicillin Resistant Staphylococcus aureus isolated.
Imaging:
01/28/25 Left foot XRAY: No acute osseous abnormality. Mild soft tissue swelling along the lateral forefoot.
02/01/25 CXR: Hazy increased density over the left lower hemithorax, probably mainly due to a posteriorly layering pleural effusion.
02/03/25 CXR: Parenchymal opacity within the right lower lung and the left mid to lower lung, similar to recent radiograph. Main differential considerations of atelectasis and/or pneumonia.
02/04/25 CT LE: 1. Interval amputation of the phalanges of the left 5th toe and the 5th metatarsal head since the prior exam performed 02/01/2025.
2. Large soft tissue wound distal to the 5th metatarsal with soft tissue emphysema extending deep to the lateral cortex of the 4th metatarsal head.
3. Moderate subcutaneous edema throughout the left lower leg and thigh.
4. Moderate to severe calcific atherosclerotic plaque throughout the left lower extremity.
5. Small to moderate-sized left knee joint effusion.
6. Severe anasarca in the left lateral abdominal wall.
7. Moderate retroperitoneal and extraperitoneal edema in the pelvis.
8. Severe diffuse urinary bladder wall thickening with adjacent perivesical inflammation suggesting ACUTE CYSTITIS. Chronic urinary bladder outlet obstruction is also likely present given severe enlargement of the prostate gland.
9. Mild circumferential wall thickening and fluid distention of the rectum suggesting an acute prostatitis. Rectal tube in place.
02/07/25 CXR/AXR: Extremely low lung volumes. Some bibasilar opacification which could represent atelectasis and/or pneumonia and small bilateral pleural effusions, left possibly greater than right. Air seen throughout small bowel, few loops
borderline prominent, nonspecific air-fluid levels, most likely representing ileus. No free air.
02/23/25 Abd US: Gallstones and sludge present with a positive sonographic Edwards's sign and mild wall thickening. Findings likely represent acute cholecystitis. There is no evidence of biliary duct dilation. The common bile duct measures 6 mm.
02/24/25 HIDA: There is no uptake within the gallbladder seen on initial and post morphine images. Findings are consistent with acute cholecystitis.
[2025-03-07] MEDS: TOPROL XL 25 MG PO ×2 (09:46→20:47)
[2025-03-07] MEDS: CARAFATE SUSPENSION 1 GM PO ×4 (09:46→21:53)
[2025-03-07] MEDS: VISBIOME 2 CAP PO (09:46)
[2025-03-07] MEDS: PROTONIX 40 MG PO ×2 (09:46→20:47)
[2025-03-07] MEDS: TYLENOL 975 MG PO ×3 (09:46→21:53)
[2025-03-07] MEDS: LIDOCAINE 4% PATCH TOPICAL (09:47)
[2025-03-07] MEDS: NOVOLOG FLEXPEN 3 UNITS SC ×3 (09:49→18:26)
[2025-03-07] MEDS: NOVOLOG FLEXPEN-LOW RESISTANCE 1 UNITS SC (09:50)
[2025-03-07] MEDS: DESENEX/MITRAZOL/ZEASORB 1 APPLIC TOPICAL ×2 (09:50→20:48)
[2025-03-07] MEDS: FLAGYL 500 MG 100 IV ×2 (09:51→21:53)
[2025-03-07] MEDS: HEPARIN 25000 UNITS/250 ML IV (09:54)
--- NOTE | 2025-03-07 11:58 | PTCARENOTE ---
OOB to chair this am with PT/OT, had breakfast quickly wanted to get back to bed. Denies pain- scheduled Tylenol given. Refusing to stay up - pt assisted to bsc (+BM) then placed back to bed by option trader. When discussed further, he is having some back
pain (refusing lido patch- which I encouraged) and he is very afraid to fall. Emotional support provided- will encourage to get back up for another meal today. Very depressed affect. Sleeping currently.
Wound vac and dressings intact left foot.
[2025-03-07 12:42] LABS: Glucose - Point of Care 239 mg/dl (70-99)
--- NOTE | 2025-03-07 13:12 | W.PN.NEPH.PH ---
Today's Communication / Plan
-
see plan
Assessment/Plan
-
IMP:
TME
Septic shock
Lactic acidosis
Sepsis 2/2 to Diabetic left foot cellulitis w/ lymphangitis
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
Acute kidney injury-baseline cr 0.9-1.1
Peripheral artery disease
hyponatremia
IDDM 2
Essential hypertension
Constipation
A-fib�permanent
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
HLD
Obesity due to excess calories
cholecystitis status post cholecystotomy tube
Plan:
Remains on daptomycin
cr fortunately better at 1.3, and he is non oliguric, PVR 5cc
BP now stabilized , cont BB and nifedipine
cotn abx per ID
wt is increasing with edema-may need diuresis in next few days
d/w son at bedside
-
-
Date of Service: March 07, 2025
CC / HPI / ROS
-
Chief Complaint:
JESUS
History of Present Illness:
JESUS/HD
JESUS/Cr better at 1.3, non oliguric
Cholecystotomy tube placed with good drainage 02/24/25
Hemodynamically more stable on Procardia and BB
Review of Systems:
Nonoliguric
no reported cp or sob noted
no fever
worked with PT today
Labs
-
Labs:
WBC 10.3 10^3/uL (4.8-10.8) 03/07/25 06:30
RBC 2.86 10^6/uL (4.70-6.10) L 03/07/25 06:30
Hgb 8.2 g/dL (13.0-18.0) L 03/07/25 06:30
Hct 26.0 % (39.0-52.0) L 03/07/25 06:30
Plt Count 341 10^3/uL (130-400) 03/07/25 06:30
Sodium 135 mmol/L (135-145) 03/07/25 06:30
Potassium 4.3 mmol/L (3.5-5.1) 03/07/25 06:30
Chloride 109 mmol/L (98-107) H 03/07/25 06:30
Carbon Dioxide 19 mmol/L (22-30) L 03/07/25 06:30
BUN 18 mg/dl (9-20) 03/07/25 06:30
Creatinine 1.3 mg/dL (0.7-1.3) 03/07/25 06:30
eGFR 56.23 03/07/25 06:30
Glucose 178 mg/dl (70-99) H 03/07/25 06:30
Calcium 8.1 mg/dl (8.4-10.2) L 03/07/25 06:30
Phosphorus 4.4 mg/dl (2.5-4.5) 02/26/25 03:52
Ozy-K-Pgjddswmihh Pept > 95690 pg/ml 02/01/25 20:16
Albumin 3.0 g/dl (3.5-5.0) L 02/24/25 04:40
Physical Exam
-
Vital Signs:
Vital Signs
Temp Pulse Resp BP Pulse Ox
97.3 F 82 23 133/75 96
03/07/25 12:10 03/07/25 10:34 03/07/25 10:34 03/07/25 10:34 03/06/25 22:05
Cardiovascular:: Regular rate and rhythm
Respiratory:: Bilateral: CTA (anteriorly)
Lung Excursion:: Normal
Abdomen:: Nontender and Soft
Bowel Sounds:: Normal
Extremity Edema:: +1: Bilateral:
Gonzalez Catheter: No
[2025-03-07] MEDS: CUBICIN 16 MG IV (14:22)
[2025-03-07] MEDS: NOVOLOG FLEXPEN-LOW RESISTANCE 2 UNITS SC ×2 (14:24→18:26)
--- NOTE | 2025-03-07 15:53 | CM ---
POD #1 Partial 5th ray amputation, wound debridement. Vac in place. IV/AB. Discharge POC: SNF vs acute rehab. Referral previously forwarded to [facility] and Medicare.gov list provided to family on 03/06/25 for SNF. Family wants acute rehab.
[2025-03-07] MEDS: PROCARDIA XL (EXTENDED RELEASE) 30 MG PO (17:03)
[2025-03-07] MEDS: LIPITOR 10 MG PO (17:03)
[2025-03-07 17:56] LABS: Glucose - Point of Care 245 mg/dl (70-99)
--- NOTE | 2025-03-07 20:06 | CS.PSYCHR ---
Consult Summary - Psychiatry
-
pt seen by me this afternoon due to concerns over suicidal statements and agitation
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 Pt has been difficult to manage due to serious aniety and suicidal statements as staff have attempted to help him with ADLs.
mentions that he is dramatic ('just like his mother was') and admonishes him to behave better.
Pt reports he gets terribly frightened of falling, gets upset that staff are not always as careful as they should be with the many tubes and bedclothes that he could get tangled in. Aware that he has an exaggerated response but has a hard time
containing it.
No prior psychiatric history
Reports that he has had a good life, and if he does not survive this he will still feel the same way. Loves children and grandchildren, , work. Born and raised in [place], attended [employer], then [employer] and [employer] [facility] [employer] [facility]
[employer]. Great marriage, had enjoyed golf until back problems. Atrial fibrilation, CAD, HTN, DM
On exam pt is pleasant, cooperative, a bit embarrassed by his behavior. Open about life and worries, no signs of cognitive impairment, no signs of psychosis. denies suicidal ideation.
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
Pt agreeable to trial of lexapro 5 mg for aniety and depression
[2025-03-07] MEDS: REMOVE LIDOCAINE PATCH REMOVE (20:47)
[2025-03-07 21:29] LABS: Glucose - Point of Care 266 mg/dl (70-99)
[2025-03-07] MEDS: LANTUS 0.12 UNITS SC (21:53)
--- NOTE | 2025-03-07 22:00 | PTCARENOTE ---
Assume care from Am RN. VSS. AAOx3, flat , withdrawn but pleasant. Afib w/ V paced in the monitor. +2 general anasarca. Lungs sounds are diminished, Shallow breathing, Occasion dry cough. SaO2 92-93% RA. Abd round and obese. Wound vac is dry an
intact. Setting at 125 mmhg. Call cervantes within reach.
[2025-03-08] VITALS (12 sets, daily range): BP systolic 108–147; BP diastolic 56–99; BMI 31.8
[2025-03-08] MEDS: ANCEF 5 IV ×3 (01:08→17:49)
[2025-03-08] MEDS: HEPARIN 25000 UNITS/250 ML IV ×2 (01:14→13:49)
[2025-03-08 05:40] LABS: APTT 81.8 Sec (23.4-35.0)
[2025-03-08 05:47] LABS: Blood Urea Nitrogen 19 mg/dl (9-20); Calcium 8.5 mg/dl (8.4-10.2); Carbon Dioxide 21 mmol/L (22-30); Chloride 109 mmol/L (98-107); Estimated Creatinine Clearance 54 ml/min; Glucose 180 mg/dl (70-99); Potassium 4.2 mmol/L (3.5-5.1); Sodium 135 mmol/L (135-145); eGFR 56.23
--- NOTE | 2025-03-08 07:11 | W.PN.HOSP.TC ---
Today's Communication/Plan
-
Increase NovoLog with meals
IV Lasix
Monitor labs
Assessment / Plan
Assessment / Plan
Gen-AAOx3, NAD
HEENT-NC, AT, anicteric, clear oral mm
Neck-supple
CV-reg, no M, +S1/S2
Lungs-clear B/L
Abd-soft, NT, ND, right upper quadrant drain intact
Ext-LUE edema, 1+ bilateral lower extremity edema
Musculoskeletal-no cyanosis, clubbing, left foot dressing, with wound VAC
Skin-warm and dry
Neuro-grossly non-focal
Psych-calm, cooperative
Septic shock - due to to left fifth metatarsal abscess, acute osteomyelitis. Sepsis and shock resolved.
Chronic left lower extremity weakness due to back injury during procedure 2019
-Appreciate ID input, continue IV daptomycin through 03/16/2025 for 6 weeks
-Shock resolved. Off vasopressors. Blood cultures negative so far. Wound culture shows MRSA.
-Leukocytosis improved overall. Afebrile.
-Unable to have MRI due to spinal stimulator not active
-Wound culture grew MRSA
-Patient underwent left partial fifth ray amputation 02/03. Path report from 02/04 shows focal acute osteomyelitis
-Bone culture of the proximal margin 5th metatarsal was positive for osteomyelitis
-Patient underwent left foot partial fifth ray amputation with wound debridement to the level of the bone and VAC placement, 03/06.
PAD -On 03/04/2025, patient underwent lower extremity angiogram with intravascular lithotripsy to left posterior tibial artery occlusion, left popliteal artery and tibioperoneal trunk, balloon angioplasty of left posterior tibial artery and left
tibioperoneal trunk.
Vascular surgery mentioned that now he has good flow into the left foot.
Acute kidney injury -resolved. Creatinine stable, 1.3 today.
- due to septic shock. Anuric. Gonzalez catheter was placed. Etiology of JESUS most likely due to septic shock and medications and less likely due to contrast-induced nephropathy as contrast exposure was on 02/01, creatinine was 3.3 morning of 02/01.
-Appreciate nephrology input, dialysis started 02/02. Dialysis IJ catheter was placed.
-High anion gap metabolic acidosis due to septic shock, lactic acidosis. Metabolic acidosis resolved. Off sodium bicarbonate IV.
-Hold metformin, lisinopril, hydrochlorothiazide, trend creatinine, no nephrotoxic drugs or NSAIDs
-Last dialyzed 02/22. Patient currently having renal recovery, nephrology to monitor and determine any further needs for dialysis
Renal function back to baseline, no need for further hemodialysis per nephrology. Dialysis catheter to be removed today, 03/04.
Weight is up 5 kg since 03/05. May be related to IV fluids. I spoke with nephrology (Dr Quintana) this morning, will give 20 mg IV Lasix.
Sepsis without septic shock -sepsis resolved.
Acute cholecystitis
-With fever and leukocytosis on 02/23
-Appreciate general surgery input, recommend biliary drain since patient is high risk for surgical intervention
-Status post percutaneous cholecystostomy tube 02/24 with IR, cx neg
- Sepsis resolved. Currently on cefazolin and metronidazole until 03/08 per ID.
-Lactic acid normal, off Levophed 02/25
-Needs outpatient follow-up with Dr. Bernabe Juarez
Acute calculous cholecystitis -cholecystostomy tube placed by IR 02/24. Seen by general surgery and recommended conservative management with outpatient follow-up.
Ileus -resolved. Did have some abdominal pain overnight and was treated with morphine. Obstruction series ordered, report pending. Bowels are moving however.
- developed nausea and vomiting on 02/03. Briefly treated with NG tube.
- Repeat x-ray 02/07 showed air throughout the small bowel, few loops borderline prominent, nonspecific air-fluid levels, most likely ileus. No free air.
- Held narcotics/IV Dilaudid prn (started Tylenol for pain control instead)
- Patient having bowel movements
- Repeat x-ray from 02/12/25 was okay
Acute diarrhea -likely due to Augmentin use, now discontinued. Stool C. difficile negative. Diarrhea resolved.
Lactic acidosis due to sepsis/shock - normalized.
-Differential diagnosis include metformin induced versus worsening sepsis
-Metformin discontinued 02/01
-MAP has been consistently greater than 65
Aspiration pneumonitis/acute hypoxic respiratory failure - triggered by vomiting, possibly triggered by ileus. Placed back on 2 L nasal cannula last night by nursing for pulse ox in the high 80% range. Encourage incentive spirometer.
Acute TME - due to sepsis, shock, critical illness. Mental status much improved and now at baseline.
Odynophagia secondary to Severe Esophagitis found on EGD 02/13/25
Poor PO Intake Secondary to Above
-GI performed EGD on 02/13/25: showed severe esophagitis
Path report shows acute ulcerative esophagitis, immunohistochemical stains negative for HSV 1 and 2, CMV. No fungal organisms identified.
-Continue PPI BID and Carafate
-On discharge cont Protonix PO BID x 4 weeks then daily and carafate AC and HS with wean to BID in 2 weeks then daily x 2 weeks then stop
Acute GI bleed/acute esophagitis -GI bleed resolved. Stools have been brown.
EGD performed 02/13 shows LA grade D reflux esophagitis without bleeding. Normal stomach, normal duodenum. Dobbhoff tube clogged as per nursing. Now that patient tolerating soft diet can DC Dobbhoff tube.
-Acute GI bleed exacerbated by anticoagulation with IV heparin.
-Continue PPI twice daily and Carafate.
Acute blood loss anemia mixed with anemia of renal failure and sepsis
-Due to GI bleed as above. Admission hemoglobin was 11.6. May have baseline chronic anemia of unclear etiology.
Suspect component of anemia related to critical illness as well as renal failure.
- 02/26, hemoglobin down to 6.5, CT without contrast negative for intraperitoneal bleed, stools are brown
Transfused 1 unit of blood on 02/26. Hemoglobin now stable, 8.2.
Nonblanching skin lesions -unclear if vasculitis, possibly due to vancomycin. Not truly palpable purpura. Now off vancomycin and on daptomycin per ID.
Hypokalemia -replete as needed
Mild Hematuria -- RESOLVED
- Noted on 02/12/25, later resolved while on Heparin Drip
- Monitor for now
LUE edema
LUE pain from needlesticks
- Doppler ultrasound negative for DVT, repeat US 02/27 also neg
- Ordered scheduled Tylenol 1000 mg Q8H (which is helping)
Acute on chronic heart failure with preserved ejection fraction
- Cardiology saw patient this hospitalization, continue dialysis as per nephrology
- Dr. Munoz is his retanner
Troponin elevation
- Suspect acute nonischemic myocardial injury due to septic shock. Troponins trended down.
Permanent atrial fibrillation -
-Continue Heparin Drip. Was on Xarelto prior to admission -- plan to transition back to oral anticoagulation once no further procedures planned, will discuss with podiatry
-Outpatient Toprol XL added back on 02/12/25
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
Known moderate nonobstructive coronary disease in 2021
-Continue statin
2 consecutive episodes of VT overnight 02/10/25 to 02/11/25
-Seen by cardiology this admission
- Resumed Toprol XL
Essential hypertension -hypotensive. Stop hydralazine.
Hyponatremia
- Resolved.
Hypomagnesemia
- Replete as needed
Hyperphosphatemia
- due to JESUS. Improving. Repeat phosphorus normal.
DM 2 with hyperglycemia -glucoses have improved overnight, 178 this morning, 223 last night. Most of the daytime glucoses are below 180.
-At home he was on insulin degludec 24 units at bedtime, NovoLog sliding scale with meals, metformin.
-Hemoglobin A1c 7.1 on 01/13/2025
-Hold metformin 1000 mg daily due to JESUS and lactic acidosis earlier this hospitalization
-Dr. Pathak is his precision lens grinder apprentice
Continue Lantus 12 units at bedtime, continue low resistance NovoLog scale. Increase aspart to 5 units with meals given persistent daytime hyperglycemia. Appetite is good.
Hyperlipidemia
- Resumed statin
Chronic back pain
-Patient sees a pain management provider outpatient
Obesity due to excess calories
DVT Prophylaxis: Heparin Drip.
Code Status: Full code
Dispo - acute rehab when medically stable, he has been accepted to [place].
Anticipated Discharge: > 48 hours
Subjective/Interval History
-
Date of Service: March 08, 2025
Patient seen and examined, no complaints. Denies shortness of breath.
Objective Data
-
Labs:
Laboratory Results
03/08/25
05:17
APTT 81.8 H
Sodium 135
Potassium 4.2
Chloride 109 H
Carbon Dioxide 21 L
BUN 19
Creatinine 1.3
Glucose 180 H
Calcium 8.5
Vital Signs:
Vital Signs
Temp Pulse Resp BP Pulse Ox
97.9 F 73 17 133/90 94
03/08/25 03:00 03/08/25 06:10 03/08/25 06:10 03/08/25 06:10 03/08/25 06:10
I&O
03/07/25 03/08/25 03/09/25
06:59 06:59 06:59
Intake Total 688 / 688 1838 / 1838
Output Total 1740 / 1740 1665 / 1665
Balance -1052 / -1052 173 / 173
Review of Systems
-
History Source: Patient
All other systems: Reviewed and negative
--- NOTE | 2025-03-08 07:55 | W.PN.POD ---
Today's Communication
Today's Communication
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
Assessment / Plan
-
S/P repeat left foot debridement with more proximal 5th ray amputation - POD #2
PAD - S/P Left LE revascularization
Type 2 Diabetes with neuropathy
Plan:
The left foot wound was changed today. Continue antibiotics per ID. Bone pathology of proximal margin 5th metatarsal pending.
We discussed plans for application of biologic graft to assist in wound granulation given the depth of the wound to fascia. He would like to reevaluate at the next vac change on Monday prior to making that decision.
Subjective
Chief Complaint
S/P Left partial 5th ray amputation and repeat debridement
Subjective
Patient is awake and conversational at bedside. No complaints of foot pain
Objective
Temp Pulse Resp BP Pulse Ox
97.9 F 73 17 133/90 94
03/08/25 03:00 03/08/25 06:10 03/08/25 06:10 03/08/25 06:10 03/08/25 06:10
03/07/25 06:30
03/08/25 05:17
Vital Signs and Lab results were reviewed.
Physical Exam
Physical Exam
Left foot with bandages in place, no strikethrough. VAC running at 125 mmHg. Upon removal of the VAC the wound appears viable. Minimal granulation tissue around the edges. It measures 3.5 cm x 2.4 cm x 0.4 cm. There is exposed fascia centrally.
No signs of infection or ischemia today
[2025-03-08 08:45] LABS: Glucose - Point of Care 177 mg/dl (70-99)
[2025-03-08] MEDS: LASIX 20 MG IV (09:43)
[2025-03-08] MEDS: TYLENOL 975 MG PO ×3 (09:44→21:36)
[2025-03-08] MEDS: CARAFATE SUSPENSION PO ×3 (09:44→13:36)
[2025-03-08] MEDS: PROTONIX 40 MG PO ×2 (09:45→20:18)
[2025-03-08] MEDS: LIDOCAINE 4% PATCH TOPICAL (09:45)
[2025-03-08] MEDS: TOPROL XL 25 MG PO ×2 (09:45→20:18)
[2025-03-08] MEDS: VISBIOME 2 CAP PO (09:46)
[2025-03-08] MEDS: FLAGYL 500 MG 100 IV ×2 (09:47→21:36)
[2025-03-08] MEDS: DESENEX/MITRAZOL/ZEASORB 1 APPLIC TOPICAL ×2 (09:47→20:19)
[2025-03-08] MEDS: NOVOLOG FLEXPEN 5 UNITS SC ×3 (09:48→17:56)
[2025-03-08] MEDS: NOVOLOG FLEXPEN-LOW RESISTANCE 1 UNITS SC (09:48)
--- NOTE | 2025-03-08 11:44 | W.PN.NEPH.PH ---
Today's Communication / Plan
-
lasix as needed
Assessment/Plan
-
IMP:
TME
Septic shock
Lactic acidosis
Sepsis 2/2 to Diabetic left foot cellulitis w/ lymphangitis
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
Acute kidney injury-baseline cr 0.9-1.1
Peripheral artery disease
hyponatremia
IDDM 2
Essential hypertension
Constipation
A-fib�permanent
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
HLD
Obesity due to excess calories
cholecystitis status post cholecystotomy tube
Plan:
cr stable at 1.3, and he is non oliguric
given increasing wt, agree with dosing of lasix , may repeat dose if needed
BP somewhat labile, cont BB and nifedipine -use holding parameters
cotn abx per ID
d/w pt and daughter at bedside
-
-
Date of Service: March 08, 2025
CC / HPI / ROS
-
Chief Complaint:
JESUS
History of Present Illness:
JESUS/HD
JESUS/Cr stable at 1.3, non oliguric
Cholecystotomy tube placed with good drainage 02/24/25
Hemodynamically stable on Procardia and BB
wt increasing
Review of Systems:
Nonoliguric
no reported cp or sob noted
no fever
Labs
-
Labs:
WBC 10.3 10^3/uL (4.8-10.8) 03/07/25 06:30
RBC 2.86 10^6/uL (4.70-6.10) L 03/07/25 06:30
Hgb 8.2 g/dL (13.0-18.0) L 03/07/25 06:30
Hct 26.0 % (39.0-52.0) L 03/07/25 06:30
Plt Count 341 10^3/uL (130-400) 03/07/25 06:30
Sodium 135 mmol/L (135-145) 03/08/25 05:17
Potassium 4.2 mmol/L (3.5-5.1) 03/08/25 05:17
Chloride 109 mmol/L (98-107) H 03/08/25 05:17
Carbon Dioxide 21 mmol/L (22-30) L 03/08/25 05:17
BUN 19 mg/dl (9-20) 03/08/25 05:17
Creatinine 1.3 mg/dL (0.7-1.3) 03/08/25 05:17
eGFR 56.23 03/08/25 05:17
Glucose 180 mg/dl (70-99) H 03/08/25 05:17
Calcium 8.5 mg/dl (8.4-10.2) 03/08/25 05:17
Phosphorus 4.4 mg/dl (2.5-4.5) 02/26/25 03:52
Dvz-J-Vlirtoyvcpf Pept > 55002 pg/ml 02/01/25 20:16
Albumin 3.0 g/dl (3.5-5.0) L 02/24/25 04:40
Physical Exam
-
Vital Signs:
Vital Signs
Temp Pulse Resp BP Pulse Ox
97.8 F 80 17 133/79 94
03/08/25 11:39 03/08/25 09:43 03/08/25 06:10 03/08/25 09:43 03/08/25 06:10
Cardiovascular:: Regular rate and rhythm
Respiratory:: Bilateral: CTA (anteriorly)
Lung Excursion:: Normal
Abdomen:: Nontender and Soft
Bowel Sounds:: Normal
Extremity Edema:: +1: Bilateral:
Gonzalez Catheter: No
Other Findings::
left foot wound vac
[2025-03-08 13:25] LABS: Glucose - Point of Care 127 mg/dl (70-99)
[2025-03-08] MEDS: NOVOLOG FLEXPEN-LOW RESISTANCE SC ×2 (13:46→17:57)
[2025-03-08] MEDS: CUBICIN 16 MG IV (13:46)
--- NOTE | 2025-03-08 16:17 | W.PN.UPDATE ---
Update Note
Progress Note Update
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
extremity a few years ago. Psychiatry saw him yesterday due to anxiety about falling and perhaps lack of motivation for PT.
He is alert and oriented (missed date by one day). Pleasant and talkative. No past history of depression or anxiety. May have had a panic attack recently in the hospital, but never before. Had made statements earlier in the hospitalization about
not wanting to live, but denies this completely now and seems to be motivated for rehab. No hallucinations or delusions. Good understanding of his medical conditions. Has no memory of the two weeks he was critically ill. Cognition intact.
He would be reassured now if large men help with transfers for the time being if this can be arranged.
Will place the order for Lexapro 5 mg. HS as discussed by Dr. Nino. Psychiatry will follow.
[2025-03-08] MEDS: PROCARDIA XL (EXTENDED RELEASE) 30 MG PO (17:49)
[2025-03-08] MEDS: LIPITOR 10 MG PO (17:49)
[2025-03-08] MEDS: CARAFATE SUSPENSION 1 GM PO ×2 (17:53→21:36)
[2025-03-08 17:58] LABS: Glucose - Point of Care 120 mg/dl (70-99)
--- NOTE | 2025-03-08 18:19 | PTCARENOTE ---
Patient received from third shift lieutenant. Patient resting comfortably in bed. AAO, VSS. No events noted. No complaints of pain at this time. Currently on Room Air, sats are low 90's and may consider O2 if lower than 90%. Continuing ABX. Heparin gtt
@ 1900. No testing scheduled at this time. Call cervantes in reach.
[2025-03-08] MEDS: REMOVE LIDOCAINE PATCH REMOVE (20:19)
[2025-03-08 20:25] LABS: Glucose - Point of Care 180 mg/dl (70-99)
[2025-03-08] MEDS: LEXAPRO 5 MG PO (21:36)
[2025-03-08] MEDS: LANTUS 0.12 UNITS SC (21:36)
[2025-03-09] VITALS (13 sets, daily range): BP systolic 102–141; BP diastolic 53–107; BMI 32.0
[2025-03-09] MEDS: ANCEF 5 IV (01:41)
[2025-03-09] MEDS: HEPARIN 25000 UNITS/250 ML IV ×2 (03:44→18:26)
[2025-03-09 05:25] LABS: APTT 125.4 Sec (23.4-35.0)
[2025-03-09 05:35] LABS: ALT (SGPT) < 10 U/L (0-50); AST (SGOT) 10 U/L (17-59); Albumin 2.6 g/dl (3.5-5.0); Alkaline Phosphatase 94 U/L (38-126); Blood Urea Nitrogen 15 mg/dl (9-20); Calcium 8.6 mg/dl (8.4-10.2); Carbon Dioxide 25 mmol/L (22-30); Chloride 109 mmol/L (98-107); Estimated Creatinine Clearance 64 ml/min; Glucose 132 mg/dl (70-99); Potassium 4.0 mmol/L (3.5-5.1); Sodium 136 mmol/L (135-145); Total Protein 5.4 g/dl (6.3-8.2); eGFR > 60.00
--- NOTE | 2025-03-09 07:50 | W.PN.HOSP.TC ---
Today's Communication/Plan
-
IV Lasix
PT/OT
Assessment / Plan
Assessment / Plan
Gen-AAOx3, NAD
HEENT-NC, AT, anicteric, clear oral mm
Neck-supple
CV-reg, no M, +S1/S2
Lungs-clear B/L
Abd-soft, NT, ND, right upper quadrant drain intact
Ext-LUE edema, 1+ bilateral lower extremity edema
Musculoskeletal-no cyanosis, clubbing, left foot dressing, with wound VAC
Skin-warm and dry
Neuro-grossly non-focal
Psych-calm, cooperative
Left fifth metatarsal abscess, acute osteomyelitis with septic shock. Sepsis and shock resolved.
Chronic left lower extremity weakness due to back injury during procedure 2019
-Appreciate ID input, continue IV daptomycin through 03/16/2025 for 6 weeks
-Shock resolved. Off vasopressors. Blood cultures negative so far. Wound culture shows MRSA.
-Leukocytosis improved overall. Afebrile.
-Unable to have MRI due to spinal stimulator not active
-Wound culture grew MRSA
-Patient underwent left partial fifth ray amputation 02/03. Path report from 02/04 shows focal acute osteomyelitis
-Bone culture of the proximal margin 5th metatarsal was positive for osteomyelitis
-Patient underwent left foot partial fifth ray amputation with wound debridement to the level of the bone and VAC placement, 03/06. Podiatry contemplating biologic grafting, patient undecided whether to proceed.
PAD -On 03/04/2025, patient underwent lower extremity angiogram with intravascular lithotripsy to left posterior tibial artery occlusion, left popliteal artery and tibioperoneal trunk, balloon angioplasty of left posterior tibial artery and left
tibioperoneal trunk.
Vascular surgery mentioned that now he has good flow into the left foot.
Acute kidney injury -JESUS resolved. Creatinine improved, 1.1. Suspect JESUS was related to septic shock.
-Appreciate nephrology input, dialysis started 02/02. Dialysis IJ catheter was placed.
-High anion gap metabolic acidosis due to septic shock, lactic acidosis. Metabolic acidosis resolved. Off sodium bicarbonate IV.
-Hold metformin, lisinopril, hydrochlorothiazide, trend creatinine, no nephrotoxic drugs or NSAIDs
-Last dialyzed 02/22. Patient currently having renal recovery, nephrology to monitor and determine any further needs for dialysis
Renal function back to baseline, no need for further hemodialysis per nephrology. Dialysis catheter removed 03/04.
Weight is up 6 kg since 03/05. Received 20 mg IV Lasix on 03/08, I's and O's -2.3 L. Still has mild edema in both legs, left greater than right upper extremity. Will give another dose of IV Lasix today, discussed with nephrology.
Sepsis without septic shock -sepsis resolved.
Acute calculous cholecystitis
-With fever and leukocytosis on 02/23
-Appreciate general surgery input, recommend biliary drain since patient is high risk for surgical intervention, cholecystostomy tube placed by IR 02/24. Seen by general surgery and recommended conservative management with outpatient follow-up.
-Status post percutaneous cholecystostomy tube 02/24 with IR, cx neg
- Sepsis resolved. Completed course of antibiotics, cefazolin and metronidazole.
-Lactic acid normal, off Levophed 02/25
-Needs outpatient follow-up with Dr. Bernabe Juarez
Ileus -resolved. Did have some abdominal pain overnight and was treated with morphine. Obstruction series ordered, report pending. Bowels are moving however.
- developed nausea and vomiting on 02/03. Briefly treated with NG tube.
- Repeat x-ray 02/07 showed air throughout the small bowel, few loops borderline prominent, nonspecific air-fluid levels, most likely ileus. No free air.
- Held narcotics/IV Dilaudid prn (started Tylenol for pain control instead)
- Patient having bowel movements
- Repeat x-ray from 02/12/25 was okay
Acute diarrhea -likely due to Augmentin use, now discontinued. Stool C. difficile negative. Diarrhea resolved.
Lactic acidosis due to sepsis/shock - normalized.
-Differential diagnosis include metformin induced versus worsening sepsis
-Metformin discontinued 02/01
-MAP has been consistently greater than 65
Aspiration pneumonitis/acute hypoxic respiratory failure - triggered by vomiting, possibly triggered by ileus. Placed back on 2 L nasal cannula last night by nursing for pulse ox in the high 80% range. Encourage incentive spirometer.
Acute TME - due to sepsis, shock, critical illness. Mental status much improved and now at baseline.
Odynophagia secondary to Severe Esophagitis found on EGD 02/13/25
Poor PO Intake Secondary to Above
-GI performed EGD on 02/13/25: showed severe esophagitis
Path report shows acute ulcerative esophagitis, immunohistochemical stains negative for HSV 1 and 2, CMV. No fungal organisms identified.
-Continue PPI BID and Carafate
-On discharge cont Protonix PO BID x 4 weeks then daily and carafate AC and HS with wean to BID in 2 weeks then daily x 2 weeks then stop
Acute GI bleed/acute esophagitis -GI bleed resolved. Stools have been brown.
EGD performed 02/13 shows LA grade D reflux esophagitis without bleeding. Normal stomach, normal duodenum. Dobbhoff tube clogged as per nursing. Now that patient tolerating soft diet can DC Dobbhoff tube.
-Acute GI bleed exacerbated by anticoagulation with IV heparin.
-Continue PPI twice daily and Carafate.
Acute blood loss anemia mixed with anemia of renal failure and sepsis
-Due to GI bleed as above. Admission hemoglobin was 11.6. May have baseline chronic anemia of unclear etiology.
Suspect component of anemia related to critical illness as well as renal failure.
- 02/26, hemoglobin down to 6.5, CT without contrast negative for intraperitoneal bleed, stools are brown
Transfused 1 unit of blood on 02/26. Hemoglobin now stable, 8.2.
Nonblanching skin lesions -unclear if vasculitis, possibly due to vancomycin. Not truly palpable purpura. Now off vancomycin and on daptomycin per ID.
Hypokalemia -replete as needed
Mild Hematuria -- RESOLVED
- Noted on 02/12/25, later resolved while on Heparin Drip
- Monitor for now
LUE edema
LUE pain from needlesticks
- Doppler ultrasound negative for DVT, repeat US 02/27 also neg
- Ordered scheduled Tylenol 1000 mg Q8H (which is helping)
Acute on chronic heart failure with preserved ejection fraction
- Cardiology saw patient this hospitalization, continue dialysis as per nephrology
- Dr. Munoz is his line construction superintendent
Troponin elevation
- Suspect acute nonischemic myocardial injury due to septic shock. Troponins trended down.
Permanent atrial fibrillation -
-Continue Heparin Drip. Was on Xarelto prior to admission -- plan to transition back to oral anticoagulation once no further procedures planned, will discuss with podiatry
-Outpatient Toprol XL added back on 02/12/25
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
Known moderate nonobstructive coronary disease in 2021
-Continue statin
2 consecutive episodes of VT overnight 02/10/25 to 02/11/25
-Seen by cardiology this admission
- Resumed Toprol XL
Essential hypertension -hypotensive. Stop hydralazine.
Hyponatremia
- Resolved.
Hypomagnesemia
- Replete as needed
Hyperphosphatemia
- due to JESUS. Improving. Repeat phosphorus normal.
DM 2 with hyperglycemia -glucoses have improved overnight, 178 this morning, 223 last night. Most of the daytime glucoses are below 180.
-At home he was on insulin degludec 24 units at bedtime, NovoLog sliding scale with meals, metformin.
-Hemoglobin A1c 7.1 on 01/13/2025
-Hold metformin 1000 mg daily due to JESUS and lactic acidosis earlier this hospitalization
-Dr. Pathak is his retail support associate
Continue Lantus 12 units at bedtime, continue low resistance NovoLog scale. Continue aspart 5 units with meals. Glucoses have improved.
Hyperlipidemia
- Resumed statin
Chronic back pain
-Patient sees a pain management provider outpatient
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 Lexapro 5 mg started.
Obesity due to excess calories
DVT Prophylaxis: Heparin Drip.
Code Status: Full code
Dispo - acute rehab when medically stable, he has been accepted to [facility].
Anticipated Discharge: > 48 hours
Subjective/Interval History
-
Date of Service: March 09, 2025
Patient seen and examined. No complaints.
Objective Data
-
Labs:
Laboratory Results
03/09/25 03/09/25
04:42 11:35
APTT 125.4 H Pending
Sodium 136
Potassium 4.0
Chloride 109 H
Carbon Dioxide 25
BUN 15
Creatinine 1.1
Glucose 132 H
Calcium 8.6
Total Bilirubin 0.3
AST 10 L
ALT < 10
Alkaline Phosphatase 94
Vital Signs:
Vital Signs
Temp Pulse Resp BP Pulse Ox
97.9 F 66 14 120/68 98
03/09/25 03:00 03/09/25 06:00 03/09/25 06:00 03/09/25 06:00 03/09/25 06:00
I&O
03/08/25 03/09/25 03/10/25
06:59 06:59 06:59
Intake Total 1838 / 1838 840 / 840
Output Total 1665 / 1665 3175 / 3175
Balance 173 / 173 -2335 / -2335
Review of Systems
-
History Source: Patient
All other systems: Reviewed and negative
[2025-03-09] MEDS: PROTONIX 40 MG PO ×2 (08:35→20:11)
[2025-03-09] MEDS: TOPROL XL 25 MG PO ×2 (08:35→20:10)
[2025-03-09] MEDS: VISBIOME 2 CAP PO (08:35)
[2025-03-09] MEDS: TYLENOL 975 MG PO ×2 (08:35→18:26)
[2025-03-09] MEDS: LASIX 20 MG IV (08:36)
[2025-03-09] MEDS: DESENEX/MITRAZOL/ZEASORB 1 APPLIC TOPICAL ×2 (08:36→20:14)
[2025-03-09] MEDS: LIDOCAINE 4% PATCH TOPICAL (08:37)
[2025-03-09 09:15] LABS: Glucose - Point of Care 209 mg/dl (70-99)
--- NOTE | 2025-03-09 10:05 | W.PN.UPDATE ---
Update Note
Progress Note Update
Seen for follow-up after starting Lexapro 5 mg. HS yesterday for anxiety, specifically about falling and not having strong enough staff to support him. He tolerated Lexapro well -- no nausea or vivid dreams. He did have several formed bowel
movements which I don't think is related to Lexapro.
Daughter was in room. He slept well from 9:45 PM until 5:00 AM (when he had a bowel movement). He awoke rested, calm and in good spirits. He is fully oriented (got date correct). Pleasant and conversant. Optimistic. Denies any suicidal thoughts
and seems less fearful today. Reinforced with nurse that he would prefer having strong staff assisting him. Also, is getting a higher chair to sit in.
As per his request, Psychiatry will continue to follow, but perhaps not daily.
Continue Lexapro (escitalopram) 5 mg HS.
[2025-03-09] MEDS: CARAFATE SUSPENSION 1 GM PO ×4 (10:43→22:09)
[2025-03-09] MEDS: NOVOLOG FLEXPEN-LOW RESISTANCE 300 UNITS SC (10:44)
[2025-03-09] MEDS: NOVOLOG FLEXPEN 5 UNITS SC ×3 (10:45→18:21)
[2025-03-09 12:20] LABS: APTT 108.8 Sec (23.4-35.0)
--- NOTE | 2025-03-09 12:57 | W.PN.NEPH.PH ---
Today's Communication / Plan
-
lasix
Assessment/Plan
-
IMP:
TME
Septic shock
Lactic acidosis
Sepsis 2/2 to Diabetic left foot cellulitis w/ lymphangitis
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
Acute kidney injury-baseline cr 0.9-1.1
Peripheral artery disease
hyponatremia
IDDM 2
Essential hypertension
Constipation
A-fib�permanent
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
HLD
Obesity due to excess calories
cholecystitis status post cholecystotomy tube
Plan:
cr improving to 1.1
net neg 2lit with lasix on 03/08, wt is up likely not accurate, edema improving
cont with dosing of lasix , repeat dose if needed
BP somewhat labile, cont BB and hold nifedipine
cotn abx per ID
d/w pt and daughter at bedside
-
-
Date of Service: March 09, 2025
CC / HPI / ROS
-
Chief Complaint:
JESUS
History of Present Illness:
JESUS/HD
JESUS/Cr down to 1.1, non oliguric, good response with lasix but wt up likely not accurate
Cholecystotomy tube placed with good drainage 02/24/25
Hemodynamically stable on Procardia and BB
wt increasing
Review of Systems:
Nonoliguric
no reported cp or sob noted
no fever
Labs
-
Labs:
WBC 10.3 10^3/uL (4.8-10.8) 03/07/25 06:30
RBC 2.86 10^6/uL (4.70-6.10) L 03/07/25 06:30
Hgb 8.2 g/dL (13.0-18.0) L 03/07/25 06:30
Hct 26.0 % (39.0-52.0) L 03/07/25 06:30
Plt Count 341 10^3/uL (130-400) 03/07/25 06:30
Sodium 136 mmol/L (135-145) 03/09/25 04:42
Potassium 4.0 mmol/L (3.5-5.1) 03/09/25 04:42
Chloride 109 mmol/L (98-107) H 03/09/25 04:42
Carbon Dioxide 25 mmol/L (22-30) 03/09/25 04:42
BUN 15 mg/dl (9-20) 03/09/25 04:42
Creatinine 1.1 mg/dL (0.7-1.3) 03/09/25 04:42
eGFR > 60.00 03/09/25 04:42
Glucose 132 mg/dl (70-99) H 03/09/25 04:42
Calcium 8.6 mg/dl (8.4-10.2) 03/09/25 04:42
Phosphorus 4.4 mg/dl (2.5-4.5) 02/26/25 03:52
Kpd-C-Iktygxgipwl Pept > 90763 pg/ml 02/01/25 20:16
Albumin 2.6 g/dl (3.5-5.0) L 03/09/25 04:42
Physical Exam
-
Vital Signs:
Vital Signs
Temp Pulse Resp BP Pulse Ox
98.0 F 67 15 117/72 100
03/09/25 07:14 03/09/25 10:00 03/09/25 10:00 03/09/25 10:00 03/09/25 10:39
Cardiovascular:: Regular rate and rhythm
Respiratory:: Bilateral: CTA (anteriorly)
Lung Excursion:: Normal
Abdomen:: Nontender and Soft
Bowel Sounds:: Normal
Extremity Edema:: +1: Bilateral: (right >left)
Gonzalez Catheter: No
Other Findings::
left foot wound vac
[2025-03-09] MEDS: CUBICIN 16 MG IV (13:10)
[2025-03-09] MEDS: NOVOLOG FLEXPEN-LOW RESISTANCE 1 UNITS SC (13:12)
[2025-03-09 13:22] LABS: Glucose - Point of Care 160 mg/dl (70-99)
--- NOTE | 2025-03-09 14:14 | PTCARENOTE ---
Assumed care of patient at 0700. Nursing assessment completed and as documented. Daughter at bedside, all questions answered. Patient with multiple BM's, all brown, soft and formed. 20mg IV lasix x1 ordered and given, see MAR. Patient voiding
frequently, clear yellow urine into bedside urinal, spills at time's. CHG bath done. Repositioned for comfort. Wound vac to LLE intact. Heparin gtt infusing per order, see worklist. VSS, call cervantes within reach, care ongoing.
[2025-03-09 18:13] LABS: Glucose - Point of Care 123 mg/dl (70-99)
[2025-03-09] MEDS: NOVOLOG FLEXPEN-LOW RESISTANCE SC (18:21)
[2025-03-09] MEDS: LIPITOR 10 MG PO (18:26)
[2025-03-09 18:54] LABS: APTT 56.6 Sec (23.4-35.0)
[2025-03-09] MEDS: REMOVE LIDOCAINE PATCH REMOVE (20:14)
[2025-03-09 21:35] LABS: Glucose - Point of Care 196 mg/dl (70-99)
[2025-03-09] MEDS: LEXAPRO 5 MG PO (22:09)
[2025-03-09] MEDS: LANTUS 0.12 UNITS SC (22:09)
[2025-03-09] MEDS: TYLENOL PO (22:10)
[2025-03-10] VITALS (17 sets, daily range): BP systolic 131–174; BP diastolic 57–100; PULSE 90–93; BMI 30.6
[2025-03-10 01:32] LABS: APTT 164.6 Sec (23.4-35.0)
[2025-03-10 04:40] LABS: Hematocrit 23.5 % (39.0-52.0); Hemoglobin 7.6 g/dL (13.0-18.0); Mean Corp Hgb Conc. 32.3 g/dL (33.0-37.0); Mean Corpuscular Volume 91.4 fL (80.0-94.0); Nucleated Red Blood Cells % 0 % (-); Platelet Count 308 10^3/uL (130-400); Red Cell Dist. Width 15.5 % (11.5-14.5)
[2025-03-10 05:18] LABS: ALT (SGPT) < 10 U/L (0-50); AST (SGOT) 12 U/L (17-59); Albumin 2.6 g/dl (3.5-5.0); Alkaline Phosphatase 89 U/L (38-126); Blood Urea Nitrogen 15 mg/dl (9-20); Calcium 8.6 mg/dl (8.4-10.2); Carbon Dioxide 23 mmol/L (22-30); Chloride 108 mmol/L (98-107); Estimated Creatinine Clearance 53 ml/min; Glucose 173 mg/dl (70-99); Potassium 3.9 mmol/L (3.5-5.1); Sodium 135 mmol/L (135-145); Total Protein 5.4 g/dl (6.3-8.2); eGFR 56.23
[2025-03-10 07:57] LABS: Glucose - Point of Care 177 mg/dl (70-99)
--- NOTE | 2025-03-10 09:10 | WOUNDNOTE ---
WOC RN note: Patient's L lateral forefoot vac dressing changed (assisted Dr. Guzman). Wound pink with yellow tissue. Slightly macerated along lateral edge. No erythema. Skin on heels intact. R ankle/heel rash resolving, scabbed. Coccyx crease dull
red and intact. Patient incontinent of small loose stool. Ariadne care given. Patient turned to L semi side lying position with help from PCT Shea. Next vac change due Wed. Dr. Guzman to coordinate visit Wed with wound care nurse. Plan is for possible
[facility] transfer when medially ready as per patient.
[2025-03-10] MEDS: NOVOLOG FLEXPEN-LOW RESISTANCE 1 UNITS SC ×2 (09:41→12:55)
[2025-03-10] MEDS: CARAFATE SUSPENSION 1 GM PO ×4 (09:41→21:17)
[2025-03-10] MEDS: NOVOLOG FLEXPEN 5 UNITS SC ×3 (09:42→18:15)
[2025-03-10] MEDS: DESENEX/MITRAZOL/ZEASORB 1 APPLIC TOPICAL ×2 (09:45→19:29)
[2025-03-10] MEDS: LIDOCAINE 4% PATCH TOPICAL (09:46)
[2025-03-10] MEDS: TOPROL XL 25 MG PO ×2 (09:47→19:29)
[2025-03-10] MEDS: PROTONIX 40 MG PO ×2 (09:47→19:29)
[2025-03-10] MEDS: VISBIOME 2 CAP PO (09:47)
[2025-03-10] MEDS: TYLENOL PO ×3 (09:48→21:18)
--- NOTE | 2025-03-10 09:53 | W.PN.HOSP.TC ---
Today's Communication/Plan
-
see bold
Assessment / Plan
Assessment / Plan
Left fifth metatarsal abscess, acute osteomyelitis with septic shock. Sepsis and shock resolved.
Chronic left lower extremity weakness due to back injury during procedure 2019
-Appreciate ID input, continue IV daptomycin through 03/16/2025 for 6 weeks
-Shock resolved. Off vasopressors. Blood cultures negative so far. Wound culture shows MRSA.
-Leukocytosis improved overall. Afebrile.
-Unable to have MRI due to spinal stimulator not active
-Wound culture grew MRSA
-Patient underwent left partial fifth ray amputation 02/03. Path report from 02/04 shows focal acute osteomyelitis
-Status post partial fifth ray amputation debridement, wound VAC applied 03/06
-Podiatry contemplating biologic grafting, patient undecided whether to proceed.
PAD -On 03/04/2025, patient underwent lower extremity angiogram with intravascular lithotripsy to left posterior tibial artery occlusion, left popliteal artery and tibioperoneal trunk, balloon angioplasty of left posterior tibial artery and left
tibioperoneal trunk.
Vascular surgery mentioned that now he has good flow into the left foot.
Acute kidney injury -JESUS resolved. Creatinine improved, 1.1. Suspect JESUS was related to septic shock.
-Appreciate nephrology input, dialysis started 02/02. Dialysis IJ catheter was placed.
-High anion gap metabolic acidosis due to septic shock, lactic acidosis. Metabolic acidosis resolved. Off sodium bicarbonate IV.
-Hold metformin, lisinopril, hydrochlorothiazide, trend creatinine, no nephrotoxic drugs or NSAIDs
-Last dialyzed 02/22. Patient currently having renal recovery, nephrology to monitor and determine any further needs for dialysis
-Renal function back to baseline, no need for further hemodialysis per nephrology. Dialysis catheter removed 03/04.
-Continue Lasix as needed
Sepsis without septic shock -sepsis resolved.
Acute calculous cholecystitis
-With fever and leukocytosis on 02/23
-Appreciate general surgery input, recommend biliary drain since patient is high risk for surgical intervention, cholecystostomy tube placed by IR 02/24. Seen by general surgery and recommended conservative management with outpatient follow-up.
-Status post percutaneous cholecystostomy tube 02/24 with IR, cx neg
-Sepsis resolved. Completed course of antibiotics, cefazolin and metronidazole.
-Lactic acid normal, off Levophed 02/25
-Needs outpatient follow-up with Dr. Bernabe Juarez
Ileus -resolved. Did have some abdominal pain overnight and was treated with morphine. Obstruction series ordered, report pending. Bowels are moving however.
- developed nausea and vomiting on 02/03. Briefly treated with NG tube.
- Repeat x-ray 02/07 showed air throughout the small bowel, few loops borderline prominent, nonspecific air-fluid levels, most likely ileus. No free air.
- Held narcotics/IV Dilaudid prn (started Tylenol for pain control instead)
- Patient having bowel movements
- Repeat x-ray from 02/12/25 was okay
Acute diarrhea -likely due to Augmentin use, now discontinued. Stool C. difficile negative. Diarrhea resolved.
Lactic acidosis due to sepsis/shock - normalized.
-Differential diagnosis include metformin induced versus worsening sepsis
-Metformin discontinued 02/01
-MAP has been consistently greater than 65
Aspiration pneumonitis/acute hypoxic respiratory failure - triggered by vomiting, possibly triggered by ileus. Placed back on 2 L nasal cannula last night by nursing for pulse ox in the high 80% range. Encourage incentive spirometer.
Acute TME - due to sepsis, shock, critical illness. Mental status much improved and now at baseline.
Odynophagia secondary to Severe Esophagitis found on EGD 02/13/25
Poor PO Intake Secondary to Above
-GI performed EGD on 02/13/25: showed severe esophagitis
Path report shows acute ulcerative esophagitis, immunohistochemical stains negative for HSV 1 and 2, CMV. No fungal organisms identified.
-Continue PPI BID and Carafate
-On discharge cont Protonix PO BID x 4 weeks then daily and carafate AC and HS with wean to BID in 2 weeks then daily x 2 weeks then stop
Acute GI bleed/acute esophagitis -GI bleed resolved. Stools have been brown.
EGD performed 02/13 shows LA grade D reflux esophagitis without bleeding. Normal stomach, normal duodenum. Dobbhoff tube clogged as per nursing. Now that patient tolerating soft diet can DC Dobbhoff tube.
-Acute GI bleed exacerbated by anticoagulation with IV heparin.
-Continue PPI twice daily and Carafate.
Acute blood loss anemia mixed with anemia of renal failure and sepsis
-Due to GI bleed as above. Admission hemoglobin was 11.6. May have baseline chronic anemia of unclear etiology.
Suspect component of anemia related to critical illness as well as renal failure.
- 02/26, hemoglobin down to 6.5, CT without contrast negative for intraperitoneal bleed, stools are brown
- Transfused 1 unit of blood on 02/26. Hemoglobin now stable, 8.2.
Nonblanching skin lesions -unclear if vasculitis, possibly due to vancomycin. Not truly palpable purpura. Now off vancomycin and on daptomycin per ID.
Hypokalemia -replete as needed
Mild Hematuria -- RESOLVED
- Noted on 02/12/25, later resolved while on Heparin Drip
- Monitor for now
LUE edema
LUE pain from needlesticks
- Doppler ultrasound negative for DVT, repeat US 02/27 also neg
- Ordered scheduled Tylenol 1000 mg Q8H (which is helping)
Acute on chronic heart failure with preserved ejection fraction
- Cardiology saw patient this hospitalization, continue dialysis as per nephrology
- Dr. Munoz is his medical equipment repairer
Troponin elevation
- Suspect acute nonischemic myocardial injury due to septic shock. Troponins trended down.
Permanent atrial fibrillation -
-Continue Heparin Drip. Was on Xarelto prior to admission -- plan to transition back to oral anticoagulation once no further procedures planned, will discuss with podiatry
-Outpatient Toprol XL added back on 02/12/25
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
Known moderate nonobstructive coronary disease in 2021
-Continue statin
2 consecutive episodes of VT overnight 02/10/25 to 02/11/25
-Seen by cardiology this admission
- Resumed Toprol XL
Essential hypertension -hypotensive. Stopped hydralazine. Holding nifedipine
Hyponatremia
- Resolved.
Hypomagnesemia
- Replete as needed
Hyperphosphatemia
- due to JESUS. Improving. Repeat phosphorus normal.
DM 2 with hyperglycemia -glucoses have improved overnight, 178 this morning, 223 last night. Most of the daytime glucoses are below 180.
-At home he was on insulin degludec 24 units at bedtime, NovoLog sliding scale with meals, metformin.
-Hemoglobin A1c 7.1 on 01/13/2025
-Hold metformin 1000 mg daily due to JESUS and lactic acidosis earlier this hospitalization
-Dr. Pathak is his wire strander
-Continue Lantus 12 units at bedtime, continue low resistance NovoLog scale. Continue aspart 5 units with meals. Glucoses have improved.
Hyperlipidemia
- Resumed statin
Chronic back pain
-Patient sees a pain management provider outpatient
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 Lexapro 5 mg started.
Obesity due to excess calories
DVT Prophylaxis: Heparin Drip.
Code Status: Full code
Dispo - acute rehab when medically stable, he has been accepted to [facility].
Physical Exam
General: Appears less tired, no acute distress
HEENT: Normocephalic, Atraumatic, EOMI, MMM
Respiratory: Clear to Auscultation bilaterally
Cardiac: Normal S1/S2, Regular Rate and Rhythm
GI: Soft, tender at the right upper quadrant, Nondistended, Normal Bowel Sounds
Biliary drain in place
Extremities: No Clubbing, Cyanosis
Left foot dressed
LUE edema noted
Neuro: Nonfocal/Grossly Intact
Anticipated Discharge: > 48 hours
Subjective/Interval History
-
Date of Service: March 10, 2025
Denies abdominal pain, denies left foot pain. No fever, no shortness of breath. No vomiting.
Objective Data
-
Labs:
Laboratory Results
03/10/25 03/10/25 03/10/25
01:04 04:30 09:28
WBC 9.3
Hgb 7.6 L
Hct 23.5 L
Plt Count 308
APTT 164.6 H* Pending
Sodium 135
Potassium 3.9
Chloride 108 H
Carbon Dioxide 23
BUN 15
Creatinine 1.3
Glucose 173 H
Calcium 8.6
Total Bilirubin 0.4
AST 12 L
ALT < 10
Alkaline Phosphatase 89
Vital Signs:
Vital Signs
Temp Pulse Resp BP Pulse Ox
98.1 F 72 14 163/81 93
03/10/25 07:35 03/10/25 06:00 03/10/25 06:00 03/10/25 06:00 03/10/25 04:00
I&O
03/09/25 03/10/25 03/11/25
06:59 06:59 06:59
Intake Total 840 / 840 490 / 490
Output Total 3175 / 3175 2540 / 2540
Balance -5 / -2334 -2049 /
[2025-03-10] MEDS: HEPARIN 25000 UNITS/250 ML IV (10:31)
--- NOTE | 2025-03-10 10:38 | W.PN.NEPH.PH ---
Today's Communication / Plan
-
lasix
Assessment/Plan
-
IMP:
TME
Septic shock
Lactic acidosis
Sepsis 2/2 to Diabetic left foot cellulitis w/ lymphangitis
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
Acute kidney injury-baseline cr 0.9-1.1
Peripheral artery disease
hyponatremia
IDDM 2
Essential hypertension
Constipation
A-fib�permanent
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
HLD
Obesity due to excess calories
cholecystitis status post cholecystotomy tube
Plan:
follow BMP
lasix 20mg IV again today
-
-
Date of Service: March 10, 2025
CC / HPI / ROS
-
Chief Complaint:
JESUS
History of Present Illness:
JESUS/HD
JESUS/Cr stable 1.3
diureses well with IV lasix
Cholecystotomy tube placed with good drainage 02/24/25
Hemodynamically stable on Procardia and BB
weight down
Review of Systems:
Nonoliguric
no reported cp or sob noted
no fever
still UE edema
Labs
-
Labs:
WBC 9.3 10^3/uL (4.8-10.8) 03/10/25 04:30
RBC 2.57 10^6/uL (4.70-6.10) L 03/10/25 04:30
Hgb 7.6 g/dL (13.0-18.0) L 03/10/25 04:30
Hct 23.5 % (39.0-52.0) L 03/10/25 04:30
Plt Count 308 10^3/uL (130-400) 03/10/25 04:30
Sodium 135 mmol/L (135-145) 03/10/25 04:30
Potassium 3.9 mmol/L (3.5-5.1) 03/10/25 04:30
Chloride 108 mmol/L (98-107) H 03/10/25 04:30
Carbon Dioxide 23 mmol/L (22-30) 03/10/25 04:30
BUN 15 mg/dl (9-20) 03/10/25 04:30
Creatinine 1.3 mg/dL (0.7-1.3) 03/10/25 04:30
eGFR 56.23 03/10/25 04:30
Glucose 173 mg/dl (70-99) H 03/10/25 04:30
Calcium 8.6 mg/dl (8.4-10.2) 03/10/25 04:30
Phosphorus 4.4 mg/dl (2.5-4.5) 02/26/25 03:52
Lvv-N-Tregskjsrzb Pept > 10050 pg/ml 02/01/25 20:16
Albumin 2.6 g/dl (3.5-5.0) L 03/10/25 04:30
Physical Exam
-
Vital Signs:
Vital Signs
Temp Pulse Resp BP Pulse Ox
98.1 F 93 21 164/90 93
03/10/25 07:35 03/10/25 10:28 03/10/25 10:28 03/10/25 10:28 03/10/25 04:00
Cardiovascular:: Regular rate and rhythm
Respiratory:: Bilateral: Coarse
Lung Excursion:: Normal
Abdomen:: Nontender and Soft
Bowel Sounds:: Normal
Extremity Edema:: +3: Bilateral:
[2025-03-10] MEDS: TYLENOL 975 MG PO (10:48)
[2025-03-10] MEDS: LASIX 20 MG IV (10:49)
[2025-03-10] MEDS: FLUSH (NSS) 2 FLUSH IV (10:50)
[2025-03-10 12:04] LABS: APTT 71.4 Sec (23.4-35.0)
[2025-03-10 12:47] LABS: Glucose - Point of Care 198 mg/dl (70-99)
[2025-03-10] MEDS: CUBICIN 16 MG IV (12:58)
--- NOTE | 2025-03-10 14:04 | W.PN.POD ---
Today's Communication
Today's Communication
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
Assessment / Plan
-
S/P repeat left foot debridement with more proximal 5th ray amputation - POD #4
PAD - S/P Left LE revascularization
Type 2 Diabetes with neuropathy
Plan:
The left foot wound VAC was changed today. Continue antibiotics per ID. Bone pathology of proximal margin 5th metatarsal pending.
We discussed plans for application of biologic graft to assist in wound granulation given the depth of the wound to fascia. He would like to reevaluate at the next vac change on Monday prior to making that decision. This was discussed in detail
with his as well.
Subjective
Chief Complaint
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
Subjective
Patient is awake and conversational. No complaints of foot pain. is on the phone
Objective
Temp Pulse Resp BP Pulse Ox
97.4 F 93 21 164/90 95
03/10/25 12:01 03/10/25 10:28 03/10/25 10:28 03/10/25 10:28 03/10/25 12:54
03/10/25 04:30
03/10/25 04:30
Vital Signs and Lab results were reviewed.
Physical Exam
Physical Exam
Left foot with bandages in place, no strikethrough. VAC running at 125 mmHg. Upon removal of the VAC the wound appears viable. Minimal granulation tissue around the edges. It measures 3.5 cm x 2.4 cm x 0.4 cm. There is exposed fascia centrally.
No signs of infection or ischemia today
--- NOTE | 2025-03-10 14:13 | W.PN.ID1 ---
Date of Service
Date of Service: March 10, 2025
Today's Communication
Continue Dapto.
Assessment / Plan
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
. 02/03/25 s/p left foot partial 5th ray amputation
OR cx's : MRSA
02/03/25 Bone path proximal margin + osteomyelitis.
. 03/06 s/p Partial 5th ray amputation with wound debridement to the level of bone.
Proximal margin path pending
. Podiatry recommends Integra graft placement over wound
. Continue Daptomycin IV through 03/16/25 ( 6 weeks abx) from ray amp or dc sooner once surgical cure achieved.
Follow weekly CK while on Dapto.
# PAD, left 5th ischemic toe
. 03/04 s/p LLE endo-vascularization
# Frequent bowel movements
. DC probiotic
. Imodium prn.
# Acute cholecystitis
- 02/24 s/p perc giacomo, cx negative
-Discontinued Augmentin 500mg po bid due to c/o diarrhea, GI upset. C. diff neg.
-Completed cefazolin 1g IVq8 and metronidazole 500mg IV q12 through 03/08/25.
# s/p JESUS
. HD started 02/02. DC'd 02/24
. Renal function recovered
# DM2 with neuropathy
# Conditions [employer] RESIDENT[employer]
Diabetes mellitus type 2
Hypertension
Atrial fibrillation on Xarelto
pacemaker placement
Chronic pain with spinal stimulator, not active; stimulator incompatible with MRI
Chronic left leg weakness due to history of back injury during lumbar procedure 2019
Lumbar laminectomy
Chief Complaint
-: Other (osteo of left fifth metatarsal)
Subjective / Review of Systems
c/o multiple formed BM's
Vital Signs / Physical Exam
Vital Signs
Vital Signs
Temp Pulse Resp BP Pulse Ox
97.4 F 93 21 164/90 95
03/10/25 12:01 03/10/25 10:28 03/10/25 10:28 03/10/25 10:28 03/10/25 12:54
Physical Exam
Constitutional: No Acute Distress and Comfortable
Gastrointestinal: Soft, Non Tender, Non Distended and Other (Perc giacomo bile)
Wound: Other (Reviewed wound photo: Left foot wound clean granulating tissue)
Neurological: AO x 3
Lines: PICC
Objective Data
Lab Data
Lab Results
03/10/25 04:30
03/10/25 04:30
ESR 78 mm/hour (0-20) H 01/28/25 12:23
PT 14.8 Sec (11.4-14.6) H 02/20/25 12:25
INR 1.11 02/20/25 12:25
APTT 71.4 Sec (23.4-35.0) H 03/10/25 11:31
Estimated Creat Clear 53 ml/min 03/10/25 04:30
Lactic Acid 1.3 mmol/L (0.7-2.0) 02/25/25 09:37
Total Bilirubin 0.4 mg/dl (0.2-1.3) 03/10/25 04:30
AST 12 U/L (17-59) L 03/10/25 04:30
ALT < 10 U/L (0-50) 03/10/25 04:30
Alkaline Phosphatase 89 U/L (38-126) 03/10/25 04:30
C-Reactive Protein 228.10 mg/L (0.0-10.00) H 01/28/25 12:23
Most recent labs reviewed.
Micro Results:
03/02/25 12:26 C. difficile GDH Antigen & Toxins - Final
Feces/Stool Negative for toxigenic C.difficile
02/24/25 17:00 Wound Culture - Final
Gallbladder No growth
Gram Stain - Final
02/03/25 21:30 Wound Culture - Final
Foot - Left Staph aureus MRSA
Gram Stain - Final
02/03/25 21:30 Anaerobic Culture - Final
Foot - Left NO ANAEROBES ISOLATED
02/03/25 21:30 Tissue Culture - Final
Foot - Left Staph aureus MRSA
Gram Stain - Final
02/02/25 13:44 Urine Culture - Final
Urine NO GROWTH
01/29/25 04:07 Blood Culture - Final
Blood/Venous No Growth - Final Report
01/28/25 12:24 Blood Culture - Final
Blood/Venous No Growth - Final Report
01/31/25 09:04 Wound Culture - Final
Foot - Left Staph aureus MRSA
Gram Stain - Final
02/01/25 19:47 Influenza Types A & B (GIFTY) - Final
Nasal Swab Negative for Influenza A & B, NAAT
Negative results must be combined with clinical observations
and patient history.
Nucleic Acid Amplification test (NAAT)performed on the
[employer] platform.
01/30/25 10:04 Wound Culture - Final
Foot - Left Staph aureus MRSA
Gram Stain - Final
01/28/25 17:44 MRSA Screen - Final
Nose No Methicillin Resistant Staphylococcus aureus isolated.
Imaging:
01/28/25 Left foot XRAY: No acute osseous abnormality. Mild soft tissue swelling along the lateral forefoot.
02/01/25 CXR: Hazy increased density over the left lower hemithorax, probably mainly due to a posteriorly layering pleural effusion.
02/03/25 CXR: Parenchymal opacity within the right lower lung and the left mid to lower lung, similar to recent radiograph. Main differential considerations of atelectasis and/or pneumonia.
02/04/25 CT LE: 1. Interval amputation of the phalanges of the left 5th toe and the 5th metatarsal head since the prior exam performed 02/01/2025.
2. Large soft tissue wound distal to the 5th metatarsal with soft tissue emphysema extending deep to the lateral cortex of the 4th metatarsal head.
3. Moderate subcutaneous edema throughout the left lower leg and thigh.
4. Moderate to severe calcific atherosclerotic plaque throughout the left lower extremity.
5. Small to moderate-sized left knee joint effusion.
6. Severe anasarca in the left lateral abdominal wall.
7. Moderate retroperitoneal and extraperitoneal edema in the pelvis.
8. Severe diffuse urinary bladder wall thickening with adjacent perivesical inflammation suggesting ACUTE CYSTITIS. Chronic urinary bladder outlet obstruction is also likely present given severe enlargement of the prostate gland.
9. Mild circumferential wall thickening and fluid distention of the rectum suggesting an acute prostatitis. Rectal tube in place.
02/07/25 CXR/AXR: Extremely low lung volumes. Some bibasilar opacification which could represent atelectasis and/or pneumonia and small bilateral pleural effusions, left possibly greater than right. Air seen throughout small bowel, few loops
borderline prominent, nonspecific air-fluid levels, most likely representing ileus. No free air.
02/23/25 Abd US: Gallstones and sludge present with a positive sonographic Edwards's sign and mild wall thickening. Findings likely represent acute cholecystitis. There is no evidence of biliary duct dilation. The common bile duct measures 6 mm.
02/24/25 HIDA: There is no uptake within the gallbladder seen on initial and post morphine images. Findings are consistent with acute cholecystitis.
Care Review
Plan reviewed with: Physician (Dr. Guzman)
--- NOTE | 2025-03-10 14:17 | CM ---
chart reviewed
continues on IV antibiotic
wound vac changed today
Left message with Carol Ann Kaur regarding bed availability
no preauth
PLAN: Acute vs. SNF, pending bed availability when stable
[2025-03-10] MEDS: IMODIUM 2 MG PO ×2 (16:18→20:29)
[2025-03-10] MEDS: LIPITOR 10 MG PO (16:18)
[2025-03-10] MEDS: NOVOLOG FLEXPEN-LOW RESISTANCE SC (18:18)
[2025-03-10 18:22] LABS: Glucose - Point of Care 115 mg/dl (70-99)
[2025-03-10] MEDS: REMOVE LIDOCAINE PATCH REMOVE (19:30)
[2025-03-10 20:10] LABS: APTT 120.4 Sec (23.4-35.0)
--- NOTE | 2025-03-10 21:07 | W.PN.UPDATE ---
Update Note
Progress Note Update
pt seen to assess improvement with current medication regimen. and nursing staff and patient all report significant improvement. may be related to improved physical therapy work, or the supportive approach of staff. will plan on continuing
escialopram, support
--- NOTE | 2025-03-10 21:10 | PTCARENOTE ---
Pt continues with frequent loose stools. Imodium given per MD orders. Heparin gtt continued, see worklist for titrations. Pt denies complaints at this time. Wound vac maintained to LLE. Biliary drain intact at RLQ of abdomen. Family members at
bedside. Call cervantes within reach.
[2025-03-10] MEDS: LEXAPRO 5 MG PO (21:17)
[2025-03-10] MEDS: LANTUS 0.12 UNITS SC (21:17)
[2025-03-10 21:28] LABS: Glucose - Point of Care 189 mg/dl (70-99)
[2025-03-11] VITALS (13 sets, daily range): BP systolic 95–167; BP diastolic 54–94; BMI 30.4
[2025-03-11] MEDS: HEPARIN 25000 UNITS/250 ML IV ×2 (02:50→15:08)
[2025-03-11 03:09] LABS: APTT 43.7 Sec (23.4-35.0)
[2025-03-11 05:35] LABS: Hematocrit 23.0 % (39.0-52.0); Hemoglobin 7.2 g/dL (13.0-18.0); Mean Corp Hgb Conc. 31.3 g/dL (33.0-37.0); Mean Corpuscular Volume 90.2 fL (80.0-94.0); Platelet Count 300 10^3/uL (130-400); Red Cell Dist. Width 15.9 % (11.5-14.5)
[2025-03-11 05:57] LABS: Blood Urea Nitrogen 12 mg/dl (9-20); Calcium 8.4 mg/dl (8.4-10.2); Carbon Dioxide 25 mmol/L (22-30); Chloride 107 mmol/L (98-107); Estimated Creatinine Clearance 62 ml/min; Glucose 156 mg/dl (70-99); Potassium 3.7 mmol/L (3.5-5.1); Sodium 136 mmol/L (135-145); eGFR > 60.00
[2025-03-11 07:51] LABS: Glucose - Point of Care 153 mg/dl (70-99)
[2025-03-11] MEDS: ZOFRAN 4 MG IV (08:11)
[2025-03-11] MEDS: CARAFATE SUSPENSION 1 GM PO ×2 (09:02→19:31)
[2025-03-11] MEDS: LIDOCAINE 4% PATCH TOPICAL (09:03)
[2025-03-11] MEDS: PROTONIX 40 MG PO ×2 (09:04→19:31)
--- NOTE | 2025-03-11 09:31 | W.PN.NEPH.PH ---
Today's Communication / Plan
-
lasix
Assessment/Plan
-
IMP:
TME
Septic shock
Lactic acidosis
Sepsis 2/2 to Diabetic left foot cellulitis w/ lymphangitis
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
Acute kidney injury-baseline cr 0.9-1.1
Peripheral artery disease
hyponatremia
IDDM 2
Essential hypertension
Constipation
A-fib�permanent
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
HLD
Obesity due to excess calories
cholecystitis status post cholecystotomy tube
Plan:
follow BMP
lasix 20mg IV again today
may need US
-
-
Date of Service: March 11, 2025
CC / HPI / ROS
-
Chief Complaint:
JESUS
History of Present Illness:
JESUS/HD
JESUS/Cr stable 1.1
diuresing well with IV lasix
Cholecystotomy tube placed with good drainage 02/24/25
Hemodynamically stable on Procardia and BB
Hgb down to 7.2
Review of Systems:
Nonoliguric
no reported cp or sob noted
no fever
still UE edema but improving
malaise and poor appetite today
Labs
-
Labs:
WBC 10.6 10^3/uL (4.8-10.8) 03/11/25 05:08
RBC 2.55 10^6/uL (4.70-6.10) L 03/11/25 05:08
Hgb 7.2 g/dL (13.0-18.0) L 03/11/25 05:08
Hct 23.0 % (39.0-52.0) L 03/11/25 05:08
Plt Count 300 10^3/uL (130-400) 03/11/25 05:08
Sodium 136 mmol/L (135-145) 03/11/25 05:08
Potassium 3.7 mmol/L (3.5-5.1) 03/11/25 05:08
Chloride 107 mmol/L (98-107) 03/11/25 05:08
Carbon Dioxide 25 mmol/L (22-30) 03/11/25 05:08
BUN 12 mg/dl (9-20) 03/11/25 05:08
Creatinine 1.1 mg/dL (0.7-1.3) 03/11/25 05:08
eGFR > 60.00 03/11/25 05:08
Glucose 156 mg/dl (70-99) H 03/11/25 05:08
Calcium 8.4 mg/dl (8.4-10.2) 03/11/25 05:08
Phosphorus 4.4 mg/dl (2.5-4.5) 02/26/25 03:52
Brk-C-Vdmwcyndxwa Pept > 39064 pg/ml 02/01/25 20:16
Albumin 2.6 g/dl (3.5-5.0) L 03/10/25 04:30
Physical Exam
-
Vital Signs:
Vital Signs
Temp Pulse Resp BP Pulse Ox
98.4 F 91 23 160/94 96
03/11/25 07:58 03/11/25 08:01 03/11/25 08:01 03/11/25 08:01 03/10/25 20:36
Cardiovascular:: Regular rate and rhythm
Respiratory:: Bilateral: Coarse
Lung Excursion:: Normal
Abdomen:: Nontender and Soft
Bowel Sounds:: Normal
Extremity Edema:: +2: Bilateral: (UE)
--- NOTE | 2025-03-11 09:38 | W.PN.HOSP.TC ---
Today's Communication/Plan
-
see bold
Assessment / Plan
Assessment / Plan
Left fifth metatarsal abscess, acute osteomyelitis with septic shock. Sepsis and shock resolved.
Chronic left lower extremity weakness due to back injury during procedure 2019
-Appreciate ID input, continue IV daptomycin through 03/16/2025 for 6 weeks
-Shock resolved. Off vasopressors. Blood cultures negative so far. Wound culture shows MRSA.
-Unable to have MRI due to spinal stimulator not active
-Wound culture grew MRSA
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 Path report from 02/04 shows focal acute osteomyelitis
-Status post left partial fifth ray amputation debridement, and wound VAC placement 03/06
-Podiatry contemplating biologic grafting, patient undecided whether to proceed
PAD
-Appreciate vascular surgery input, status post lower extremity angiogram with intravascular lithotripsy to left posterior tibial artery occlusion, left popliteal artery and tibioperoneal trunk, balloon angioplasty of left posterior tibial artery
and left tibioperoneal trunk 0n 03/04
-Vascular surgery mentioned that now he has good flow into the left foot.
Acute kidney injury -JESUS resolved. Creatinine improved, 1.1. Suspect JESUS was related to septic shock.
-Appreciate nephrology input, dialysis started 02/02. Dialysis IJ catheter was placed.
-High anion gap metabolic acidosis due to septic shock, lactic acidosis. Metabolic acidosis resolved. Off sodium bicarbonate IV.
-Hold metformin, lisinopril, hydrochlorothiazide, trend creatinine, no nephrotoxic drugs or NSAIDs
-Last dialyzed 02/22. Patient currently having renal recovery, nephrology to monitor and determine any further needs for dialysis
-Renal function back to baseline, no need for further hemodialysis per nephrology. Dialysis catheter removed 03/04.
-Continue Lasix as needed
Sepsis without septic shock -sepsis resolved.
Acute calculous cholecystitis
-With fever and leukocytosis on 02/23
-Appreciate general surgery input, recommend biliary drain since patient is high risk for surgical intervention, cholecystostomy tube placed by IR 02/24. Seen by general surgery and recommended conservative management with outpatient follow-up.
-Status post percutaneous cholecystostomy tube 02/24 with IR, cx neg
-Sepsis resolved. Completed course of antibiotics, cefazolin and metronidazole.
-Lactic acid normal, off Levophed 02/25
-Needs outpatient follow-up with Dr. Bernabe Juarez
Ileus -resolved. Did have some abdominal pain overnight and was treated with morphine. Obstruction series ordered, report pending. Bowels are moving however.
- developed nausea and vomiting on 02/03. Briefly treated with NG tube.
- Repeat x-ray 02/07 showed air throughout the small bowel, few loops borderline prominent, nonspecific air-fluid levels, most likely ileus. No free air.
- Held narcotics/IV Dilaudid prn (started Tylenol for pain control instead)
- Patient having bowel movements
- Repeat x-ray from 02/12/25 was okay
Acute diarrhea -likely due to Augmentin use, now discontinued. Stool C. difficile negative. Diarrhea resolved.
Lactic acidosis due to sepsis/shock - normalized.
-Differential diagnosis include metformin induced versus worsening sepsis
-Metformin discontinued 02/01
-MAP has been consistently greater than 65
Aspiration pneumonitis/acute hypoxic respiratory failure - triggered by vomiting, possibly triggered by ileus. Placed back on 2 L nasal cannula last night by nursing for pulse ox in the high 80% range. Encourage incentive spirometer.
Acute TME - due to sepsis, shock, critical illness. Mental status much improved and now at baseline.
Odynophagia secondary to Severe Esophagitis found on EGD 02/13/25
Poor PO Intake Secondary to Above
-GI performed EGD on 02/13/25: showed severe esophagitis
Path report shows acute ulcerative esophagitis, immunohistochemical stains negative for HSV 1 and 2, CMV. No fungal organisms identified.
-Continue PPI BID and Carafate
-On discharge cont Protonix PO BID x 4 weeks then daily and carafate BID in 2 weeks then daily x 2 weeks then stop
Acute GI bleed/acute esophagitis -GI bleed resolved. Stools have been brown.
EGD performed 02/13 shows LA grade D reflux esophagitis without bleeding. Normal stomach, normal duodenum. Dobbhoff tube clogged as per nursing. Now that patient tolerating soft diet can DC Dobbhoff tube.
-Acute GI bleed exacerbated by anticoagulation with IV heparin.
-Continue PPI twice daily and Carafate.
Acute blood loss anemia mixed with anemia of renal failure and sepsis
-Due to GI bleed as above. Admission hemoglobin was 11.6. May have baseline chronic anemia of unclear etiology.
Suspect component of anemia related to critical illness as well as renal failure.
-02/26, hemoglobin down to 6.5, CT without contrast negative for intraperitoneal bleed, stools are brown
-Transfused 1 unit of blood on 02/26. Hemoglobin now stable, continue to monitor
Nonblanching skin lesions -unclear if vasculitis, possibly due to vancomycin. Not truly palpable purpura. Now off vancomycin and on daptomycin per ID.
Hypokalemia -replete as needed
Mild Hematuria -- RESOLVED
- Noted on 02/12/25, later resolved while on Heparin Drip
- Monitor for now
LUE edema
LUE pain from needlesticks
- Doppler ultrasound negative for DVT, repeat US 02/27 also neg
- Ordered scheduled Tylenol 1000 mg Q8H (which is helping)
Acute on chronic heart failure with preserved ejection fraction
- Cardiology saw patient this hospitalization, continue dialysis as per nephrology
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
Troponin elevation
- Suspect acute nonischemic myocardial injury due to septic shock. Troponins trended down.
Permanent atrial fibrillation -
-Continue Heparin Drip. Was on Xarelto prior to admission -- plan to transition back to oral anticoagulation once no further procedures planned, will discuss with podiatry
-Outpatient Toprol XL added back on 02/12/25
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
Known moderate nonobstructive coronary disease in 2021
-Continue statin
2 consecutive episodes of VT overnight 02/10/25 to 02/11/25
-Seen by cardiology this admission
- Resumed Toprol XL
Labile hypertension -hypotensive. Stopped hydralazine. Holding nifedipine
Hyponatremia
- Resolved.
Hypomagnesemia
- Replete as needed
Hyperphosphatemia
- due to JESUS. Improving. Repeat phosphorus normal.
DM 2 with hyperglycemia -glucoses have improved overnight, 178 this morning, 223 last night. Most of the daytime glucoses are below 180.
-At home he was on insulin degludec 24 units at bedtime, NovoLog sliding scale with meals, metformin.
-Hemoglobin A1c 7.1 on 01/13/2025
-Hold metformin 1000 mg daily due to JESUS and lactic acidosis earlier this hospitalization
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
-Continue Lantus 12 units at bedtime, continue low resistance NovoLog scale. Continue aspart 5 units with meals. Glucoses have improved.
Hyperlipidemia
- Resumed statin
Chronic back pain
-Patient sees a pain management provider outpatient
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 Lexapro 5 mg started.
Obesity due to excess calories -affects all aspects of care
DVT Prophylaxis: Heparin Drip.
Code Status: Full code
Dispo - acute rehab when medically stable, he has been accepted to [place].
Updated son at bedside 03/11
Total time spent to see the patient on the floor, examine the patient, review data and lab results, discuss treatment plan with patient, nursing staff around 50 minutes.
Physical Exam
General: Appears less tired, no acute distress
HEENT: Normocephalic, Atraumatic, EOMI, MMM
Respiratory: Clear to Auscultation bilaterally
Cardiac: Normal S1/S2, Regular Rate and Rhythm
GI: Soft, tender at the right upper quadrant, Nondistended, Normal Bowel Sounds
Biliary drain in place
Extremities: No Clubbing, Cyanosis
Left foot dressed with wound VAC in place
LUE edema noted
Neuro: Nonfocal/Grossly Intact
Anticipated Discharge: > 48 hours
Subjective/Interval History
-
Date of Service: March 11, 2025
Patient complains of nausea. He did not vomit. Denies abdominal pain, denies left foot pain. No chest pain, no shortness of breath. No fever.
Objective Data
-
Labs:
Laboratory Results
03/11/25 03/11/25 03/11/25
02:45 05:08 09:30
WBC 10.6
Hgb 7.2 L
Hct 23.0 L
Plt Count 300
APTT 43.7 H Pending
Sodium 136
Potassium 3.7
Chloride 107
Carbon Dioxide 25
BUN 12
Creatinine 1.1
Glucose 156 H
Calcium 8.4
Vital Signs:
Vital Signs
Temp Pulse Resp BP Pulse Ox
98.4 F 91 23 160/94 96
03/11/25 07:58 03/11/25 08:01 03/11/25 08:01 03/11/25 08:01 03/10/25 20:36
I&O
03/10/25 03/11/25 03/12/25
06:59 06:59 06:59
Intake Total 490 / 490 1286 / 1286
Output Total 2540 / 2540 1964 / 1964 250 / 250
Balance -2049 / -2049 -679 / -679 -250 / -250
[2025-03-11] MEDS: NOVOLOG FLEXPEN SC (09:41)
[2025-03-11] MEDS: NOVOLOG FLEXPEN-LOW RESISTANCE 1 UNITS SC ×3 (09:41→18:31)
[2025-03-11] MEDS: TYLENOL 975 MG PO (09:41)
[2025-03-11] MEDS: TOPROL XL 25 MG PO ×2 (09:41→19:32)
[2025-03-11] MEDS: DESENEX/MITRAZOL/ZEASORB 1 APPLIC TOPICAL ×2 (09:42→19:31)
--- NOTE | 2025-03-11 10:14 | W.PN.ID1 ---
Date of Service
Date of Service: March 11, 2025
Today's Communication
Continue Daptomycin.
Workup of nausea.
Assessment / Plan
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
. 02/03/25 s/p left foot partial 5th ray amputation
OR cx's : MRSA
02/03/25 Bone path proximal margin + osteomyelitis.
. 03/06 s/p Partial 5th ray amputation with wound debridement to the level of bone.
Proximal margin path pending
. Podiatry recommends Integra graft placement over wound
. Continue Daptomycin IV through 03/16/25 ( 6 weeks abx) from ray amp or dc sooner once surgical cure achieved.
Follow weekly CK while on Dapto.
# PAD, left 5th ischemic toe
. 03/04 s/p LLE endo-vascularization
# s/p Acute cholecystitis
- 02/24 s/p perc giacomo, cx negative
-Completed cefazolin 1g IVq8 and metronidazole 500mg IV q12 through 03/08/25.
# Anxiety
. started escitalopram 03/08
# Nausea today
. Consider review new meds
. Consider assess for patency/proper placement of current perc giacomo
# Frequent bowel movements improved off probiotic
# s/p JESUS - resolved
. HD started 02/02. DC'd 02/24
. Renal function recovered
# DM2 with neuropathy
# Conditions [employer]ING
Diabetes mellitus type 2
Hypertension
Atrial fibrillation on Xarelto
pacemaker placement
Chronic pain with spinal stimulator, not active; stimulator incompatible with MRI
Chronic left leg weakness due to history of back injury during lumbar procedure 2019
Lumbar laminectomy
Chief Complaint
-: Other (osteo of left fifth metatarsal)
Subjective / Review of Systems
Son and at bedside. Patient with significant nausea, dry heave this am. Appetite poor.
No abd pain. No further frequent BM overnight, had one this am.
Vital Signs / Physical Exam
Vital Signs
Vital Signs
Temp Pulse Resp BP Pulse Ox
98.4 F 96 23 160/94 96
03/11/25 07:58 03/11/25 09:41 03/11/25 08:01 03/11/25 09:41 03/10/25 20:36
Physical Exam
Constitutional: Acutely Ill and Chronically Ill
Eyes: No Conjunctival Hemorrhage and Sclera Anicteric
Pulmonary: Clear (anteriorly)
Gastrointestinal: Soft, Non Tender, Non Distended and Other (Perc giacomo: bile)
Genito-Urinary: Negative CVA Tenderness
Neurological: Other (Drowsy)
Objective Data
Lab Data
Lab Results
03/11/25 05:08
03/11/25 05:08
ESR 78 mm/hour (0-20) H 01/28/25 12:23
PT 14.8 Sec (11.4-14.6) H 02/20/25 12:25
INR 1.11 02/20/25 12:25
APTT 43.7 Sec (23.4-35.0) H 03/11/25 02:45
Estimated Creat Clear 62 ml/min 03/11/25 05:08
Lactic Acid 1.3 mmol/L (0.7-2.0) 02/25/25 09:37
Total Bilirubin 0.4 mg/dl (0.2-1.3) 03/10/25 04:30
AST 12 U/L (17-59) L 03/10/25 04:30
ALT < 10 U/L (0-50) 03/10/25 04:30
Alkaline Phosphatase 89 U/L (38-126) 03/10/25 04:30
C-Reactive Protein 228.10 mg/L (0.0-10.00) H 01/28/25 12:23
Most recent labs reviewed.
Micro Results:
03/02/25 12:26 C. difficile GDH Antigen & Toxins - Final
Feces/Stool Negative for toxigenic C.difficile
02/24/25 17:00 Wound Culture - Final
Gallbladder No growth
Gram Stain - Final
02/03/25 21:30 Wound Culture - Final
Foot - Left Staph aureus MRSA
Gram Stain - Final
02/03/25 21:30 Anaerobic Culture - Final
Foot - Left NO ANAEROBES ISOLATED
02/03/25 21:30 Tissue Culture - Final
Foot - Left Staph aureus MRSA
Gram Stain - Final
02/02/25 13:44 Urine Culture - Final
Urine NO GROWTH
01/29/25 04:07 Blood Culture - Final
Blood/Venous No Growth - Final Report
01/28/25 12:24 Blood Culture - Final
Blood/Venous No Growth - Final Report
01/31/25 09:04 Wound Culture - Final
Foot - Left Staph aureus MRSA
Gram Stain - Final
02/01/25 19:47 Influenza Types A & B (GIFTY) - Final
Nasal Swab Negative for Influenza A & B, NAAT
Negative results must be combined with clinical observations
and patient history.
Nucleic Acid Amplification test (NAAT)performed on the
[employer] platform.
01/30/25 10:04 Wound Culture - Final
Foot - Left Staph aureus MRSA
Gram Stain - Final
01/28/25 17:44 MRSA Screen - Final
Nose No Methicillin Resistant Staphylococcus aureus isolated.
Imaging:
01/28/25 Left foot XRAY: No acute osseous abnormality. Mild soft tissue swelling along the lateral forefoot.
02/01/25 CXR: Hazy increased density over the left lower hemithorax, probably mainly due to a posteriorly layering pleural effusion.
02/03/25 CXR: Parenchymal opacity within the right lower lung and the left mid to lower lung, similar to recent radiograph. Main differential considerations of atelectasis and/or pneumonia.
02/04/25 CT LE: 1. Interval amputation of the phalanges of the left 5th toe and the 5th metatarsal head since the prior exam performed 02/01/2025.
2. Large soft tissue wound distal to the 5th metatarsal with soft tissue emphysema extending deep to the lateral cortex of the 4th metatarsal head.
3. Moderate subcutaneous edema throughout the left lower leg and thigh.
4. Moderate to severe calcific atherosclerotic plaque throughout the left lower extremity.
5. Small to moderate-sized left knee joint effusion.
6. Severe anasarca in the left lateral abdominal wall.
7. Moderate retroperitoneal and extraperitoneal edema in the pelvis.
8. Severe diffuse urinary bladder wall thickening with adjacent perivesical inflammation suggesting ACUTE CYSTITIS. Chronic urinary bladder outlet obstruction is also likely present given severe enlargement of the prostate gland.
9. Mild circumferential wall thickening and fluid distention of the rectum suggesting an acute prostatitis. Rectal tube in place.
02/07/25 CXR/AXR: Extremely low lung volumes. Some bibasilar opacification which could represent atelectasis and/or pneumonia and small bilateral pleural effusions, left possibly greater than right. Air seen throughout small bowel, few loops
borderline prominent, nonspecific air-fluid levels, most likely representing ileus. No free air.
02/23/25 Abd US: Gallstones and sludge present with a positive sonographic Edwards's sign and mild wall thickening. Findings likely represent acute cholecystitis. There is no evidence of biliary duct dilation. The common bile duct measures 6 mm.
02/24/25 HIDA: There is no uptake within the gallbladder seen on initial and post morphine images. Findings are consistent with acute cholecystitis.
Care Review
Plan reviewed with: Physician (Dr. Jazzy Archer)
[2025-03-11 10:32] LABS: APTT 94.2 Sec (23.4-35.0)
[2025-03-11] MEDS: LASIX 20 MG IV (10:37)
[2025-03-11 11:45] LABS: Glucose - Point of Care 183 mg/dl (70-99)
[2025-03-11] MEDS: CUBICIN 16 MG IV (12:32)
[2025-03-11] MEDS: NOVOLOG FLEXPEN 5 UNITS SC ×2 (13:01→18:31)
--- NOTE | 2025-03-11 16:49 | CM ---
Following up on patient. DARREN Salamanca learned from CM colleague that the she spoke to the daughter briefly who mentioned [facility].
DARREN is aware patient has been here a long time and Dr. Daniels/ Family are interested in [facility]. Case Management will discuss with the patient other options if there are any.
Medical Team stated that patient may proceed with a surgery later this week and if not, would be ready to discharge to a rehab with: KRISS drain, Wound VAC, and IV Abx.
PLAN: Acute Rehab or SNF, will continue to follow.
[2025-03-11 17:10] LABS: Glucose - Point of Care 160 mg/dl (70-99)
[2025-03-11] MEDS: TYLENOL PO ×2 (17:29→22:32)
[2025-03-11] MEDS: LIPITOR 10 MG PO (17:30)
--- NOTE | 2025-03-11 17:39 | PTCARENOTE ---
Assumed care of patient at beginning of this shift from previous RN with heparin infusing at 2000 units/hr. PTT 94.2. L wound vac in use. Patient Ox3, needs encouragement; using IS. See worklist for full assessment and vital signs.
[2025-03-11 18:08] LABS: APTT 98.4 Sec (23.4-35.0)
[2025-03-11] MEDS: REMOVE LIDOCAINE PATCH REMOVE (19:32)
[2025-03-11 22:24] LABS: Glucose - Point of Care 221 mg/dl (70-99)
[2025-03-11] MEDS: LEXAPRO 5 MG PO (22:26)
[2025-03-11] MEDS: LANTUS 0.12 UNITS SC (22:26)
--- NOTE | 2025-03-11 23:48 | PTCARENOTE ---
Pt maintained on heparin gtt. VSS at this time. LLE wound vac maintained. Call cervantes within reach. Care ongoing.
[2025-03-12] VITALS (18 sets, daily range): BP systolic 89–161; BP diastolic 47–103; PULSE 94; BMI 30.3
[2025-03-12] MEDS: HEPARIN 25000 UNITS/250 ML IV (04:32)
[2025-03-12 04:40] LABS: Hematocrit 22.7 % (39.0-52.0); Hemoglobin 7.2 g/dL (13.0-18.0); Mean Corp Hgb Conc. 31.7 g/dL (33.0-37.0); Mean Corpuscular Volume 91.5 fL (80.0-94.0); Platelet Count 273 10^3/uL (130-400); Red Cell Dist. Width 16.1 % (11.5-14.5)
[2025-03-12 05:54] LABS: Blood Urea Nitrogen 12 mg/dl (9-20); Calcium 8.8 mg/dl (8.4-10.2); Carbon Dioxide 24 mmol/L (22-30); Chloride 106 mmol/L (98-107); Estimated Creatinine Clearance 69 ml/min; Glucose 135 mg/dl (70-99); Potassium 3.7 mmol/L (3.5-5.1); Sodium 135 mmol/L (135-145); eGFR > 60.00
[2025-03-12 06:01] LABS: APTT 165.9 Sec (23.4-35.0)
[2025-03-12 08:25] LABS: Glucose - Point of Care 122 mg/dl (70-99)
[2025-03-12] MEDS: TOPROL XL 25 MG PO (08:26)
[2025-03-12] MEDS: LIDOCAINE 4% PATCH TOPICAL (08:26)
[2025-03-12] MEDS: CARAFATE SUSPENSION 1 GM PO ×2 (08:26→20:08)
[2025-03-12] MEDS: TYLENOL PO (08:26)
[2025-03-12] MEDS: PROTONIX 40 MG PO ×2 (08:26→20:08)
[2025-03-12] MEDS: DESENEX/MITRAZOL/ZEASORB 1 APPLIC TOPICAL ×2 (08:27→20:10)
[2025-03-12] MEDS: NOVOLOG FLEXPEN-LOW RESISTANCE SC (08:29)
--- NOTE | 2025-03-12 08:55 | W.PN.POD ---
Today's Communication
Today's Communication
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
Assessment / Plan
-
S/P repeat left foot debridement with more proximal 5th ray amputation - POD #6
PAD - S/P Left LE revascularization
Type 2 Diabetes with neuropathy
Plan:
The left foot wound VAC was changed today. Continue antibiotics per ID. Bone pathology of proximal margin 5th metatarsal pending. Will discuss abiotic course with ID once result is available. Patient would like to continue with VAC therapy. No
further surgical plans. Await discharge to [place].
This was discussed in detail with his & son as well.
Subjective
Chief Complaint
S/P Left foot partial 5th ray amputation
Subjective
Patient awake at bedside - no complaints
Objective
Temp Pulse Resp BP Pulse Ox
97.7 F 92 12 161/79 95
03/12/25 08:45 03/12/25 08:26 03/12/25 06:00 03/12/25 08:26 03/11/25 20:07
03/12/25 04:29
03/12/25 04:29
Vital Signs and Lab results were reviewed.
Physical Exam
Physical Exam
Left foot with bandages in place, no strikethrough. VAC running at 125 mmHg. Upon removal of the VAC the wound appears viable. Minimal granulation tissue around the edges. wound is approximately 40% granualr beginning from proximal lateral margin
It measures 3.5 cm x 2.4 cm x 0.4 cm. There is exposed fascia centrally. No signs of infection or ischemia today
--- NOTE | 2025-03-12 09:00 | WOUNDNOTE ---
[facility] RN note: Assisted Dr. Guzman with patient's L foot wound vac dressing change. Wound appears the same as 2 days ago. Skin on heels intact. Sacral/coccyx crease blanchable red with possible mild yeast rash. Miconazole powder applied then sacral
shaped silicone border foam. Patient is on a [facility] air bed. Patient needs assistance to turn in bed. Patient turned to L semi side lying position. Heels off bed with pillows. Next vac change due Monday. Plan is [facility] when discharged.
[2025-03-12] MEDS: NOVOLOG FLEXPEN 5 UNITS SC ×3 (10:05→18:10)
--- NOTE | 2025-03-12 10:16 | PTCARENOTE ---
Assumed care of patient at beginning of this shift from previous RN. Patient seen by WOC and podiatry this morning and they changed wound vac dressing. Doppler pedal pulse obtained when dressing off. PT/OT were in to get patient OOB to chair. Wound
vac then began alarming that canister wasn't engaged. Attempted to reset and alarm stopped. TT sent to TERESA Arriaga with picture of wound vac. She replied that if canister icon shows blue color movement then it is running (it does show blue
color in picture that was sent) and if it alarms again to let her know.
Discussed with OT prior to patient OOB that he was very difficult to get back to bed after sitting in chair; discussed having patient sit in chair then they [place] back to assist with getting back to bed. PT stated patient more elevated in chair
with sling under him to assist floor staff as they may not be on unit when patient gets back to bed.
Patient and son in room updated on care. See worklist for full assessment and vital signs.
--- NOTE | 2025-03-12 10:27 | CM ---
Addendum entered by Cheikh Martinez 03/12/25 14:03:
[facility] liaison Alanna called back and was updated on my conversation with the family. Alanna asked about the type of wound VAC so provided that. Then touched based with the Medical Team who said they will be given blood today due to low HGB so will
be checking this as well as stop heparin and put him on Xarelto.
[facility] updated and said they they will have a bed tomorrow. DARREN Salamanca updated Dr. Daniels.
Original Note:
Following up on patient. RN stated patient is out of bed and DARREN Salamanca saw note that patient does NOT want more surgery.
DARREN Salamanca met patient, son Javier, and spouse over the phone today. DARREN Salamanca discussed the plan that has been in place with Dr. Daniels and both son and Mrs. Daniels confirmed, which is [facility] in this building. DARREN Salamanca informed all that the
final decision still has to be made by [facility] and that there needs to be a bed.
DARREN Salamanca confirmed with Dr. Daniels that he does not want surgery so patient likely ready to discharge this week possibly. DARREN Salamanca asked about a back up plan if [facility] was ready to discharge and Dr. Daniels said he would want home, of course
with whatever services he needed.
DARREN Salamanca asked about SNF back up and it is only [facility] if [facility] was not an option. DARREN Salamanca shared that a conversation with business process representative happened today with [facility] #[phone] who will review the clinical and who will be
told the plan discussed today.
PLAN: [facility] and [facility] as back up SNF
--- NOTE | 2025-03-12 10:27 | W.PN.ID1 ---
Date of Service
Date of Service: March 12, 2025
Today's Communication
Continue daptomycin.
Assessment / Plan
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
. 02/03/25 s/p left foot partial 5th ray amputation
OR cx's : MRSA
02/03/25 Bone path proximal margin + osteomyelitis.
. 03/06 s/p Partial 5th ray amputation with wound debridement to the level of bone.
Proximal margin path pending
. Podiatry recommends Integra graft placement over wound
. Continue Daptomycin IV through 03/16/25 ( 6 weeks abx) from ray amp or dc sooner once surgical cure achieved.
Follow weekly CK while on Dapto.
# PAD, left 5th ischemic toe
. 03/04 s/p LLE endo-vascularization
# s/p Acute cholecystitis
- 02/24 s/p perc giacomo, cx negative
-Completed cefazolin 1g IVq8 and metronidazole 500mg IV q12 through 03/08/25.
# Anxiety
. started escitalopram 03/08
# Nausea resolved.
# Frequent bowel movements improved off probiotic
# s/p JESUS - resolved
. HD started 02/02. DC'd 02/24
. Renal function recovered
# DM2 with neuropathy
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
Diabetes mellitus type 2
Hypertension
Atrial fibrillation on Xarelto
pacemaker placement
Chronic pain with spinal stimulator, not active; stimulator incompatible with MRI
Chronic left leg weakness due to history of back injury during lumbar procedure 2019
Lumbar laminectomy
Chief Complaint
-: Other (osteo of left fifth metatarsal)
Subjective / Review of Systems
No nausea today. Feels better.
Vital Signs / Physical Exam
Vital Signs
Vital Signs
Temp Pulse Resp BP Pulse Ox
97.7 F 92 12 161/79 95
03/12/25 08:45 03/12/25 08:26 03/12/25 08:00 03/12/25 08:26 03/11/25 20:07
Physical Exam
Constitutional: Comfortable
Eyes: No Conjunctival Hemorrhage and Sclera Anicteric
Cardiovascular: Irregular Rate and S1/S2
Pulmonary: Clear (anteriorly)
Gastrointestinal: Soft, Non Tender, Non Distended and Other (Perc giacomo: just emptied)
Genito-Urinary: Negative CVA Tenderness
Neurological: AO x 3 and Other
Lines: PICC
Objective Data
Lab Data
Lab Results
03/12/25 04:29
03/12/25 04:29
ESR 78 mm/hour (0-20) H 01/28/25 12:23
PT 14.8 Sec (11.4-14.6) H 02/20/25 12:25
INR 1.11 02/20/25 12:25
APTT 165.9 Sec (23.4-35.0) H* 03/12/25 04:29
Estimated Creat Clear 69 ml/min 03/12/25 04:29
Lactic Acid 1.3 mmol/L (0.7-2.0) 02/25/25 09:37
Total Bilirubin 0.4 mg/dl (0.2-1.3) 03/10/25 04:30
AST 12 U/L (17-59) L 03/10/25 04:30
ALT < 10 U/L (0-50) 03/10/25 04:30
Alkaline Phosphatase 89 U/L (38-126) 03/10/25 04:30
C-Reactive Protein 228.10 mg/L (0.0-10.00) H 01/28/25 12:23
Most recent labs reviewed.
Micro Results:
03/02/25 12:26 C. difficile GDH Antigen & Toxins - Final
Feces/Stool Negative for toxigenic C.difficile
02/24/25 17:00 Wound Culture - Final
Gallbladder No growth
Gram Stain - Final
02/03/25 21:30 Wound Culture - Final
Foot - Left Staph aureus MRSA
Gram Stain - Final
02/03/25 21:30 Anaerobic Culture - Final
Foot - Left NO ANAEROBES ISOLATED
02/03/25 21:30 Tissue Culture - Final
Foot - Left Staph aureus MRSA
Gram Stain - Final
02/02/25 13:44 Urine Culture - Final
Urine NO GROWTH
01/29/25 04:07 Blood Culture - Final
Blood/Venous No Growth - Final Report
01/28/25 12:24 Blood Culture - Final
Blood/Venous No Growth - Final Report
01/31/25 09:04 Wound Culture - Final
Foot - Left Staph aureus MRSA
Gram Stain - Final
02/01/25 19:47 Influenza Types A & B (GIFTY) - Final
Nasal Swab Negative for Influenza A & B, NAAT
Negative results must be combined with clinical observations
and patient history.
Nucleic Acid Amplification test (NAAT)performed on the
[employer] platform.
01/30/25 10:04 Wound Culture - Final
Foot - Left Staph aureus MRSA
Gram Stain - Final
01/28/25 17:44 MRSA Screen - Final
Nose No Methicillin Resistant Staphylococcus aureus isolated.
Imaging:
01/28/25 Left foot XRAY: No acute osseous abnormality. Mild soft tissue swelling along the lateral forefoot.
02/01/25 CXR: Hazy increased density over the left lower hemithorax, probably mainly due to a posteriorly layering pleural effusion.
02/03/25 CXR: Parenchymal opacity within the right lower lung and the left mid to lower lung, similar to recent radiograph. Main differential considerations of atelectasis and/or pneumonia.
02/04/25 CT LE: 1. Interval amputation of the phalanges of the left 5th toe and the 5th metatarsal head since the prior exam performed 02/01/2025.
2. Large soft tissue wound distal to the 5th metatarsal with soft tissue emphysema extending deep to the lateral cortex of the 4th metatarsal head.
3. Moderate subcutaneous edema throughout the left lower leg and thigh.
4. Moderate to severe calcific atherosclerotic plaque throughout the left lower extremity.
5. Small to moderate-sized left knee joint effusion.
6. Severe anasarca in the left lateral abdominal wall.
7. Moderate retroperitoneal and extraperitoneal edema in the pelvis.
8. Severe diffuse urinary bladder wall thickening with adjacent perivesical inflammation suggesting ACUTE CYSTITIS. Chronic urinary bladder outlet obstruction is also likely present given severe enlargement of the prostate gland.
9. Mild circumferential wall thickening and fluid distention of the rectum suggesting an acute prostatitis. Rectal tube in place.
02/07/25 CXR/AXR: Extremely low lung volumes. Some bibasilar opacification which could represent atelectasis and/or pneumonia and small bilateral pleural effusions, left possibly greater than right. Air seen throughout small bowel, few loops
borderline prominent, nonspecific air-fluid levels, most likely representing ileus. No free air.
02/23/25 Abd US: Gallstones and sludge present with a positive sonographic Edwards's sign and mild wall thickening. Findings likely represent acute cholecystitis. There is no evidence of biliary duct dilation. The common bile duct measures 6 mm.
02/24/25 HIDA: There is no uptake within the gallbladder seen on initial and post morphine images. Findings are consistent with acute cholecystitis.
--- NOTE | 2025-03-12 11:51 | W.PN.NEPH.PH ---
Today's Communication / Plan
-
lasix
Assessment/Plan
-
IMP:
TME
Septic shock
Lactic acidosis
Sepsis 2/2 to Diabetic left foot cellulitis w/ lymphangitis
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
Acute kidney injury-baseline cr 0.9-1.1
Peripheral artery disease
hyponatremia
IDDM 2
Essential hypertension
Constipation
A-fib�permanent
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
HLD
Obesity due to excess calories
cholecystitis status post cholecystotomy tube
Plan:
stable cr at 1
cont lasix for edema-seem improving
BP are increasing-resume bcak on procardia
follow BMP
follow h/h
d/w on phone, son in the room
d/w nursing
-
-
Date of Service: March 12, 2025
CC / HPI / ROS
-
Chief Complaint:
JESUS
History of Present Illness:
JESUS/HD
JESUS/Cr stable 1., k 3.7
diuresing well with IV lasix
Cholecystotomy tube placed with good drainage 02/24/25
Hemodynamically stable on Procardia and BB
Hgb down to 7.2
Review of Systems:
Nonoliguric
sitting in chair
no fever
still UE edema but improving
Labs
-
Labs:
WBC 9.8 10^3/uL (4.8-10.8) 03/12/25 04:29
RBC 2.48 10^6/uL (4.70-6.10) L 03/12/25 04:29
Hgb 7.2 g/dL (13.0-18.0) L 03/12/25 04:29
Hct 22.7 % (39.0-52.0) L 03/12/25 04:29
Plt Count 273 10^3/uL (130-400) 03/12/25 04:29
Sodium 135 mmol/L (135-145) 03/12/25 04:29
Potassium 3.7 mmol/L (3.5-5.1) 03/12/25 04:29
Chloride 106 mmol/L (98-107) 03/12/25 04:29
Carbon Dioxide 24 mmol/L (22-30) 03/12/25 04:29
BUN 12 mg/dl (9-20) 03/12/25 04:29
Creatinine 1.0 mg/dL (0.7-1.3) 03/12/25 04:29
eGFR > 60.00 03/12/25 04:29
Glucose 135 mg/dl (70-99) H 03/12/25 04:29
Calcium 8.8 mg/dl (8.4-10.2) 03/12/25 04:29
Phosphorus 4.4 mg/dl (2.5-4.5) 02/26/25 03:52
[id number]-T-[id number] Pept > 42913 pg/ml 02/01/25 20:16
Albumin 2.6 g/dl (3.5-5.0) L 03/10/25 04:30
Physical Exam
-
Vital Signs:
Vital Signs
Temp Pulse Resp BP Pulse Ox
97.7 F 94 19 142/80 95
03/12/25 11:03 03/12/25 10:30 03/12/25 10:30 03/12/25 10:30 03/12/25 08:30
Cardiovascular:: Regular rate and rhythm
Respiratory:: Bilateral: CTA
Lung Excursion:: Normal
Abdomen:: Nontender and Soft
Bowel Sounds:: Normal
Extremity Edema:: +2: Bilateral: (UE)
Gonzalez Catheter: No
[2025-03-12 12:29] LABS: Glucose - Point of Care 183 mg/dl (70-99)
[2025-03-12] MEDS: LASIX 20 MG IV (12:45)
[2025-03-12] MEDS: CUBICIN 16 MG IV (12:46)
[2025-03-12] MEDS: NOVOLOG FLEXPEN-LOW RESISTANCE 1 UNITS SC ×2 (13:27→18:09)
[2025-03-12 13:42] LABS: APTT 85.6 Sec (23.4-35.0)
--- NOTE | 2025-03-12 15:30 | WOUNDNOTE ---
[facility] RN Preeti Timmons stated she assessed patient's L foot wound vac and she reports patient's vac is working properly.
--- NOTE | 2025-03-12 15:32 | W.PN.UPDATE ---
Update Note
Progress Note Update
patient seen chart reviewed. family at bedside. 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 he is anticipating going to [place] tomorrow and is planning on working hard to get stronger and fitter. he did have some nausea yesterday and there was some
concern it was due to lexapro . it is not present today and family feels lexapro already helping him . we talked about whether antidep can be stopped cold turkey . lexapro at 5 mg dose i would not hesitate to just dc if needed. i explained that
there are different recs re stoppage for each antidep. patient very hopeful he can progress and eager to begin that journey. psych signing off.
--- NOTE | 2025-03-12 15:45 | W.PN.HOSP.TC ---
Today's Communication/Plan
-
Change IV heparin drip to Xarelto
Transfuse 1 unit of packed red blood cells
Plan for discharge to [facility] tomorrow
Assessment / Plan
Assessment / Plan
Left fifth metatarsal abscess, acute osteomyelitis with septic shock. Sepsis and shock resolved.
Chronic left lower extremity weakness due to back injury during procedure 2019
-Appreciate ID input, continue IV daptomycin through 03/16/2025 for 6 weeks
-Shock resolved. Off vasopressors. Blood cultures negative so far. Wound culture shows MRSA.
-Unable to have MRI due to spinal stimulator not active
-Wound culture grew MRSA
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 Path report from 02/04 shows focal acute osteomyelitis
-Status post left partial fifth ray amputation debridement, and wound VAC placement 03/06
-Patient declined biologic grafting, follow-up with podiatry in the office
PAD
-Appreciate vascular surgery input, status post lower extremity angiogram with intravascular lithotripsy to left posterior tibial artery occlusion, left popliteal artery and tibioperoneal trunk, balloon angioplasty of left posterior tibial artery
and left tibioperoneal trunk on 03/04
-Vascular surgery mentioned that now he has good flow into the left foot.
Acute kidney injury -JESUS resolved. Creatinine improved, 1.1. Suspect JESUS was related to septic shock.
-Appreciate nephrology input, dialysis started 02/02. Dialysis IJ catheter was placed.
-High anion gap metabolic acidosis due to septic shock, lactic acidosis. Metabolic acidosis resolved. Off sodium bicarbonate IV.
-Hold metformin, lisinopril, hydrochlorothiazide, trend creatinine, no nephrotoxic drugs or NSAIDs
-Last dialyzed 02/22. Patient currently having renal recovery, nephrology to monitor and determine any further needs for dialysis
-Renal function back to baseline, no need for further hemodialysis per nephrology. Dialysis catheter removed 03/04.
-Continue Lasix as needed as per nephro
Sepsis without septic shock -sepsis resolved.
Acute calculous cholecystitis
-With fever and leukocytosis on 02/23
-Appreciate general surgery input, recommend biliary drain since patient is high risk for surgical intervention, cholecystostomy tube placed by IR 02/24. Seen by general surgery and recommended conservative management with outpatient follow-up.
-Status post percutaneous cholecystostomy tube 02/24 with IR, cx neg
-Sepsis resolved. Completed course of antibiotics, cefazolin and metronidazole.
-Lactic acid normal, off Levophed 02/25
-Needs outpatient follow-up with Dr. Bernabe Juarez
Ileus -resolved. Did have some abdominal pain overnight and was treated with morphine. Obstruction series ordered, report pending. Bowels are moving however.
- developed nausea and vomiting on 02/03. Briefly treated with NG tube.
- Repeat x-ray 02/07 showed air throughout the small bowel, few loops borderline prominent, nonspecific air-fluid levels, most likely ileus. No free air.
- Held narcotics/IV Dilaudid prn (started Tylenol for pain control instead)
- Patient having bowel movements
- Repeat x-ray from 02/12/25 was okay
Acute diarrhea -likely due to Augmentin use, now discontinued. Stool C. difficile negative. Diarrhea resolved.
Lactic acidosis due to sepsis/shock - normalized.
-Differential diagnosis include metformin induced versus worsening sepsis
-Metformin discontinued 02/01
-MAP has been consistently greater than 65
Aspiration pneumonitis/acute hypoxic respiratory failure - triggered by vomiting, possibly triggered by ileus. Placed back on 2 L nasal cannula last night by nursing for pulse ox in the high 80% range. Encourage incentive spirometer.
Acute TME - due to sepsis, shock, critical illness. Mental status much improved and now at baseline.
Odynophagia secondary to Severe Esophagitis found on EGD 02/13/25
Poor PO Intake Secondary to Above
-GI performed EGD on 02/13/25: showed severe esophagitis
Path report shows acute ulcerative esophagitis, immunohistochemical stains negative for HSV 1 and 2, CMV. No fungal organisms identified.
-Continue PPI BID and Carafate
-On discharge cont Protonix PO BID x 4 weeks then daily and carafate BID in 2 weeks then daily x 2 weeks then stop
Acute GI bleed/acute esophagitis -GI bleed resolved. Stools have been brown.
EGD performed 02/13 shows LA grade D reflux esophagitis without bleeding. Normal stomach, normal duodenum. Dobbhoff tube clogged as per nursing. Now that patient tolerating soft diet can DC Dobbhoff tube.
-Acute GI bleed exacerbated by anticoagulation with IV heparin.
-Continue PPI twice daily and Carafate.
Acute blood loss anemia mixed with anemia of renal failure and sepsis
-Due to GI bleed as above. Admission hemoglobin was 11.6. May have baseline chronic anemia of unclear etiology.
Suspect component of anemia related to critical illness as well as renal failure.
-02/26, hemoglobin down to 6.5, CT without contrast negative for intraperitoneal bleed, stools are brown
-Transfused 1 unit of blood on 02/26
-Hemoglobin improved and stable for 2 weeks, but now slowly trickling down to 7.2
-Transfuse a second unit of packed red blood cells today
Nonblanching skin lesions -unclear if vasculitis, possibly due to vancomycin. Not truly palpable purpura. Now off vancomycin and on daptomycin per ID.
Hypokalemia -replete as needed
Mild Hematuria -- RESOLVED
- Noted on 02/12/25, later resolved while on Heparin Drip
- Monitor for now
LUE edema
LUE pain from needlesticks
- Doppler ultrasound negative for DVT, repeat US 02/27 also neg
- Ordered scheduled Tylenol 1000 mg Q8H (which is helping)
Acute on chronic heart failure with preserved ejection fraction
- Cardiology saw patient this hospitalization, continue dialysis as per nephrology
- Dr. Munoz is his catcher helper
Troponin elevation
- Suspect acute nonischemic myocardial injury due to septic shock. Troponins trended down.
Permanent atrial fibrillation -
-Outpatient Toprol XL added back on 02/12/25
-Change heparin drip to Xarelto 03/12
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
Known moderate nonobstructive coronary disease in 2021
-Continue statin
2 consecutive episodes of VT overnight 02/10/25 to 02/11/25
-Seen by cardiology this admission
- Resumed Toprol XL
Labile hypertension - Stopped hydralazine. Nephrology resume nifedipine 03/12
Hyponatremia
- Resolved.
Hypomagnesemia
- Replete as needed
Hyperphosphatemia
- due to JESUS. Improving. Repeat phosphorus normal.
DM 2 with hyperglycemia -glucoses have improved overnight, 178 this morning, 223 last night. Most of the daytime glucoses are below 180.
-At home he was on insulin degludec 24 units at bedtime, NovoLog sliding scale with meals, metformin.
-Hemoglobin A1c 7.1 on 01/13/2025
-Hold metformin 1000 mg daily due to JESUS and lactic acidosis earlier this hospitalization
-Dr. Pathak is his legal financial specialist
-Continue Lantus 12 units at bedtime, continue low resistance NovoLog scale. Increase aspart 6 units with meals. Glucoses have improved.
Hyperlipidemia
- Resumed statin
Chronic back pain
-Patient sees a pain management provider outpatient
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 Lexapro 5 mg started.
Obesity due to excess calories -affects all aspects of care
DVT Prophylaxis: Xarelto
Code Status: Full code
Dispo - acute rehab when medically stable, he has been accepted to [facility].
Updated son at bedside 03/12
Total time spent to see the patient on the floor, examine the patient, review data and lab results, discuss treatment plan with patient, nursing staff around 51 minutes.
Physical Exam
General: Appears less tired, no acute distress
HEENT: Normocephalic, Atraumatic, EOMI, MMM
Respiratory: Clear to Auscultation bilaterally
Cardiac: Normal S1/S2, Regular Rate and Rhythm
GI: Soft, tender at the right upper quadrant, Nondistended, Normal Bowel Sounds
Biliary drain in place
Extremities: No Clubbing, Cyanosis
Left foot dressed with wound VAC in place
LUE edema noted
Neuro: Nonfocal/Grossly Intact
Anticipated Discharge: Within 24 hours
Subjective/Interval History
-
Date of Service: March 12, 2025
Nausea resolved. No vomiting. Patient does have intermittent leg pain and soreness with standing and movement. No fever, no chest pain, no shortness of breath.
Objective Data
-
Labs:
Laboratory Results
03/12/25 03/12/25
04:29 13:19
WBC 9.8
Hgb 7.2 L
Hct 22.7 L
Plt Count 273
APTT 165.9 H* 85.6 H
Sodium 135
Potassium 3.7
Chloride 106
Carbon Dioxide 24
BUN 12
Creatinine 1.0
Glucose 135 H
Calcium 8.8
Vital Signs:
Vital Signs
Temp Pulse Resp BP Pulse Ox
98.5 F 80 18 135/74 95
03/12/25 15:42 03/12/25 15:42 03/12/25 15:42 03/12/25 15:42 03/12/25 08:30
I&O
03/11/25 03/12/25 03/13/25
06:59 06:59 06:59
Intake Total 1286 / 1286 240 / 240 0 / 0
Output Total 1964 / 1964 925 / 925 110 / 110
Balance -679 / -679 -685 / -685 -110 / -110
[2025-03-12 17:22] LABS: Glucose - Point of Care 159 mg/dl (70-99)
--- NOTE | 2025-03-12 17:26 | PTCARENOTE ---
Hg 7.2 this morning; order entered this afternoon by Dr Archer for 1 unit PRBC. T&C sent to blood bank; blood infusing at this time.
[2025-03-12] MEDS: PROCARDIA XL (EXTENDED RELEASE) 30 MG PO (17:37)
[2025-03-12] MEDS: LIPITOR 10 MG PO (17:37)
[2025-03-12] MEDS: XARELTO 20 MG PO (17:37)
--- NOTE | 2025-03-12 18:27 | PTCARENOTE ---
Patient completed PRBCs. Heparin infusion d/c'd after Xarelto given as ordered.
[2025-03-12] MEDS: LEXAPRO 5 MG PO (20:09)
[2025-03-12] MEDS: TOPROL XL PO (20:10)
[2025-03-12] MEDS: REMOVE LIDOCAINE PATCH REMOVE (21:09)
[2025-03-12 22:07] LABS: Glucose - Point of Care 213 mg/dl (70-99)
[2025-03-12 22:10] LABS: Hemoglobin 8.0 g/dL (13.0-18.0)
[2025-03-12] MEDS: LANTUS 0.12 UNITS SC (23:00)
[2025-03-13] VITALS (9 sets, daily range): BP systolic 111–134; BP diastolic 48–109
--- NOTE | 2025-03-13 01:05 | PTCARENOTE ---
Repeat H&H drawn s/p blood transfusion. Hgb 8.0. VSS. Pt scheduled to be d/c to [facility] 03/13. Pt resting comfortably in bed at this time. Care ongoing.
[2025-03-13 04:17] LABS: Hematocrit 23.8 % (39.0-52.0); Hemoglobin 7.7 g/dL (13.0-18.0); Mean Corp Hgb Conc. 32.4 g/dL (33.0-37.0); Mean Corpuscular Volume 90.2 fL (80.0-94.0); Platelet Count 260 10^3/uL (130-400); Red Cell Dist. Width 16.0 % (11.5-14.5)
[2025-03-13 05:12] LABS: Blood Urea Nitrogen 13 mg/dl (9-20); Calcium 8.7 mg/dl (8.4-10.2); Carbon Dioxide 28 mmol/L (22-30); Chloride 105 mmol/L (98-107); Estimated Creatinine Clearance 76 ml/min; Glucose 171 mg/dl (70-99); Potassium 3.8 mmol/L (3.5-5.1); Sodium 135 mmol/L (135-145); eGFR > 60.00
[2025-03-13 08:08] LABS: Glucose - Point of Care 166 mg/dl (70-99)
[2025-03-13] MEDS: CARAFATE SUSPENSION 1 GM PO (08:25)
[2025-03-13] MEDS: TOPROL XL 25 MG PO (08:25)
[2025-03-13] MEDS: DESENEX/MITRAZOL/ZEASORB 1 APPLIC TOPICAL (08:25)
[2025-03-13] MEDS: PROTONIX 40 MG PO (08:25)
[2025-03-13] MEDS: LIDOCAINE 4% PATCH TOPICAL (08:25)
[2025-03-13] MEDS: NOVOLOG FLEXPEN-LOW RESISTANCE 1 UNITS SC ×2 (09:21→13:15)
[2025-03-13] MEDS: NOVOLOG FLEXPEN 5 UNITS SC ×2 (09:21→13:15)
--- NOTE | 2025-03-13 09:32 | W.PN.HOSP.TC ---
Today's Communication/Plan
-
Cleared by ID for discharge to [facility] today
Assessment / Plan
Assessment / Plan
Left fifth metatarsal abscess, acute osteomyelitis with septic shock. Sepsis and shock resolved.
Chronic left lower extremity weakness due to back injury during procedure 2019
-Appreciate ID input, 03/06 bone margins are clean, he no longer needs IV daptomycin upon discharge, antibiotics discontinued by ID 03/13
-Shock resolved. Off vasopressors. Blood cultures negative so far. Wound culture shows MRSA.
-Unable to have MRI due to spinal stimulator not active
-Wound culture grew MRSA
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 Path report from 02/04 shows focal acute osteomyelitis
-Status post left partial fifth ray amputation debridement, and wound VAC placement 03/06
-Patient declined biologic grafting, follow-up with podiatry in the office
PAD
-Appreciate vascular surgery input, status post lower extremity angiogram with intravascular lithotripsy to left posterior tibial artery occlusion, left popliteal artery and tibioperoneal trunk, balloon angioplasty of left posterior tibial artery
and left tibioperoneal trunk on 03/04
-Vascular surgery mentioned that now he has good flow into the left foot
- Follow-up with vascular surgery in the office
Acute kidney injury -JESUS resolved. Creatinine improved, 1.1. Suspect JESUS was related to septic shock.
-Appreciate nephrology input, dialysis started 02/02. Dialysis IJ catheter was placed.
-High anion gap metabolic acidosis due to septic shock, lactic acidosis. Metabolic acidosis resolved. Off sodium bicarbonate IV.
-Hold metformin, lisinopril, hydrochlorothiazide, trend creatinine, no nephrotoxic drugs or NSAIDs
-Last dialyzed 02/22. Patient currently having renal recovery, nephrology to monitor and determine any further needs for dialysis
-Renal function back to baseline, no need for further hemodialysis per nephrology. Dialysis catheter removed 03/04.
-Continue Lasix as needed as per nephro
Sepsis without septic shock -sepsis resolved.
Acute calculous cholecystitis
-With fever and leukocytosis on 02/23
-Appreciate general surgery input, recommend biliary drain since patient is high risk for surgical intervention, cholecystostomy tube placed by IR 02/24. Seen by general surgery and recommended conservative management with outpatient follow-up.
-Status post percutaneous cholecystostomy tube 02/24 with IR, cx neg
-Sepsis resolved. Completed course of antibiotics, cefazolin and metronidazole.
-Lactic acid normal, off Levophed 02/25
-Needs outpatient follow-up with Dr. Bernabe Juarez
Ileus -resolved. Did have some abdominal pain overnight and was treated with morphine. Obstruction series ordered, report pending. Bowels are moving however.
- developed nausea and vomiting on 02/03. Briefly treated with NG tube.
- Repeat x-ray 02/07 showed air throughout the small bowel, few loops borderline prominent, nonspecific air-fluid levels, most likely ileus. No free air.
- Held narcotics/IV Dilaudid prn (started Tylenol for pain control instead)
- Patient having bowel movements
- Repeat x-ray from 02/12/25 was okay
Acute diarrhea -likely due to Augmentin use, now discontinued. Stool C. difficile negative. Diarrhea resolved.
Lactic acidosis due to sepsis/shock - normalized.
-Differential diagnosis include metformin induced versus worsening sepsis
-Metformin discontinued 02/01
-MAP has been consistently greater than 65
Aspiration pneumonitis/acute hypoxic respiratory failure - triggered by vomiting, possibly triggered by ileus. Placed back on 2 L nasal cannula last night by nursing for pulse ox in the high 80% range. Encourage incentive spirometer.
Acute TME - due to sepsis, shock, critical illness. Mental status much improved and now at baseline.
Odynophagia secondary to Severe Esophagitis found on EGD 02/13/25
Poor PO Intake Secondary to Above
-GI performed EGD on 02/13/25: showed severe esophagitis
Path report shows acute ulcerative esophagitis, immunohistochemical stains negative for HSV 1 and 2, CMV. No fungal organisms identified.
-Continue PPI BID and Carafate
-On discharge cont Protonix PO BID x 2 weeks then daily and carafate BID x10 days, then daily x 2 weeks then stop
Acute GI bleed/acute esophagitis -GI bleed resolved. Stools have been brown.
EGD performed 02/13 shows LA grade D reflux esophagitis without bleeding. Normal stomach, normal duodenum. Dobbhoff tube clogged as per nursing. Now that patient tolerating soft diet can DC Dobbhoff tube.
-Acute GI bleed exacerbated by anticoagulation with IV heparin.
-Continue PPI twice daily and Carafate.
Acute blood loss anemia mixed with anemia of renal failure and sepsis
-Due to GI bleed as above. Admission hemoglobin was 11.6. May have baseline chronic anemia of unclear etiology.
Suspect component of anemia related to critical illness as well as renal failure.
-02/26, hemoglobin down to 6.5, CT without contrast negative for intraperitoneal bleed, stools are brown
-Transfused 1 unit of blood on 02/26
-Hemoglobin improved and stable for 2 weeks, but now slowly trickling down to 7.2
-03/12, patient received a second unit of blood for hemoglobin of 7.2
-Hemoglobin stable at 7.9 without any signs or symptoms of bleeding
Nonblanching skin lesions -unclear if vasculitis, possibly due to vancomycin. Not truly palpable purpura. Now off vancomycin and on daptomycin per ID.
Hypokalemia -replete as needed
Mild Hematuria -- RESOLVED
- Noted on 02/12/25, later resolved while on Heparin Drip
- Monitor for now
LUE edema
LUE pain from needlesticks
- Doppler ultrasound negative for DVT, repeat US 02/27 also neg
- Ordered scheduled Tylenol 1000 mg Q8H (which is helping)
Acute on chronic heart failure with preserved ejection fraction
- Cardiology saw patient this hospitalization, continue dialysis as per nephrology
- Dr. Munoz is his animal husbandry professor
Troponin elevation
- Suspect acute nonischemic myocardial injury due to septic shock. Troponins trended down.
Permanent atrial fibrillation -
-Outpatient Toprol XL added back on 02/12/25
-Changed heparin drip to Xarelto 03/12
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
Known moderate nonobstructive coronary disease in 2021
-Continue statin
2 consecutive episodes of VT overnight 02/10/25 to 02/11/25
-Seen by cardiology this admission
- Resumed Toprol XL
Labile hypertension - Stopped hydralazine. Nephrology resume nifedipine 03/12
Hyponatremia
- Resolved.
Hypomagnesemia
- Replete as needed
Hyperphosphatemia
- due to JESUS. Improving. Repeat phosphorus normal.
DM 2 with hyperglycemia -glucoses have improved overnight, 178 this morning, 223 last night. Most of the daytime glucoses are below 180.
-At home he was on insulin degludec 24 units at bedtime, NovoLog sliding scale with meals, metformin.
-Hemoglobin A1c 7.1 on 01/13/2025
-Hold metformin 1000 mg daily due to JESUS and lactic acidosis earlier this hospitalization
-Dr. Pathak is his goring cutter
-Continue Lantus 12 units at bedtime, continue aspart 5 units with meals.
Hyperlipidemia
- Resumed statin
Chronic back pain
-Patient sees a pain management provider outpatient
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 Lexapro 5 mg started.
Obesity due to excess calories -affects all aspects of care
DVT Prophylaxis: Xarelto
Code Status: Full code
Dispo - acute rehab when medically stable, he has been accepted to [facility].
Updated son at bedside 03/12
Updated on phone 03/12
Physical Exam
General: Appears less tired, no acute distress
HEENT: Normocephalic, Atraumatic, EOMI, MMM
Respiratory: Clear to Auscultation bilaterally
Cardiac: Normal S1/S2, Regular Rate and Rhythm
GI: Soft, tender at the right upper quadrant, Nondistended, Normal Bowel Sounds
Biliary drain in place
Extremities: No Clubbing, Cyanosis
Left foot dressed with wound VAC in place
LUE edema noted
Neuro: Nonfocal/Grossly Intact
Anticipated Discharge: Today
Subjective/Interval History
-
Date of Service: March 13, 2025
Patient reports slight left foot pain. He denies abdominal pain. No nausea, no vomiting. No chest pain, shortness of breath. No fever.
Objective Data
-
Labs:
Laboratory Results
03/12/25 03/13/25
22:02 04:08
WBC 12.0 H
Hgb 8.0 L 7.7 L
Hct 23.8 L
Plt Count 260
Sodium 135
Potassium 3.8
Chloride 105
Carbon Dioxide 28
BUN 13
Creatinine 0.9
Glucose 171 H
Calcium 8.7
Vital Signs:
Vital Signs
Temp Pulse Resp BP Pulse Ox
98.2 F 89 22 121/109 96
03/13/25 07:22 03/13/25 08:00 03/13/25 08:00 03/13/25 08:00 03/13/25 08:40
I&O
03/12/25 03/13/25 03/14/25
06:59 06:59 06:59
Intake Total 240 / 240 250 / 250
Output Total 925 / 925 460 / 460
Balance -685 / -685 -210 / -210
--- NOTE | 2025-03-13 10:52 | W.PN.ID1 ---
Date of Service
Date of Service: March 13, 2025
Today's Communication
DC daptomycin.
DC Picc.
ID will sign off.
Assessment / Plan
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
. 02/03/25 s/p left foot partial 5th ray amputation
OR cx's : MRSA
02/03/25 Bone path proximal margin + osteomyelitis.
. 03/06 s/p Partial 5th ray amputation with wound debridement to the level of bone.
Proximal bone path: clean margin
. DC Daptomycin (day 39)
. DC Picc
# PAD, left 5th ischemic toe
. 03/04 s/p LLE endo-vascularization
# s/p Acute cholecystitis
- 02/24 s/p perc giacomo, cx negative
-Completed cefazolin 1g IVq8 and metronidazole 500mg IV q12 through 03/08/25.
# Anxiety
. started escitalopram 03/08
# Nausea resolved.
# Frequent bowel movements improved off probiotic
# s/p JESUS - resolved
. HD started 02/02. DC'd 02/24
. Renal function recovered
# DM2 with neuropathy
ID will sign off.
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
Diabetes mellitus type 2
Hypertension
Atrial fibrillation on Xarelto
pacemaker placement
Chronic pain with spinal stimulator, not active; stimulator incompatible with MRI
Chronic left leg weakness due to history of back injury during lumbar procedure 2019
Lumbar laminectomy
Chief Complaint
-: Other (osteo of left fifth metatarsal)
Subjective / Review of Systems
Feels well today. No nausea.
Vital Signs / Physical Exam
Vital Signs
Vital Signs
Temp Pulse Resp BP Pulse Ox
98.2 F 89 22 121/109 96
03/13/25 07:22 03/13/25 08:00 03/13/25 08:00 03/13/25 08:00 03/13/25 10:25
Physical Exam
Constitutional: Comfortable
Eyes: No Conjunctival Hemorrhage and Sclera Anicteric
Cardiovascular: Irregular Rate and S1/S2
Pulmonary: Clear (anteriorly)
Gastrointestinal: Soft, Non Tender, Non Distended and Other (Perc giacomo: just emptied)
Genito-Urinary: Negative CVA Tenderness
Neurological: AO x 3 and Other
Lines: PICC
Objective Data
Lab Data
Lab Results
03/13/25 04:08
03/13/25 04:08
ESR 78 mm/hour (0-20) H 01/28/25 12:23
PT 14.8 Sec (11.4-14.6) H 02/20/25 12:25
INR 1.11 02/20/25 12:25
APTT 85.6 Sec (23.4-35.0) H 03/12/25 13:19
Estimated Creat Clear 76 ml/min 03/13/25 04:08
Lactic Acid 1.3 mmol/L (0.7-2.0) 02/25/25 09:37
Total Bilirubin 0.4 mg/dl (0.2-1.3) 03/10/25 04:30
AST 12 U/L (17-59) L 03/10/25 04:30
ALT < 10 U/L (0-50) 03/10/25 04:30
Alkaline Phosphatase 89 U/L (38-126) 03/10/25 04:30
C-Reactive Protein 228.10 mg/L (0.0-10.00) H 01/28/25 12:23
Most recent labs reviewed.
Micro Results:
03/02/25 12:26 C. difficile GDH Antigen & Toxins - Final
Feces/Stool Negative for toxigenic C.difficile
02/24/25 17:00 Wound Culture - Final
Gallbladder No growth
Gram Stain - Final
02/03/25 21:30 Wound Culture - Final
Foot - Left Staph aureus MRSA
Gram Stain - Final
02/03/25 21:30 Anaerobic Culture - Final
Foot - Left NO ANAEROBES ISOLATED
02/03/25 21:30 Tissue Culture - Final
Foot - Left Staph aureus MRSA
Gram Stain - Final
02/02/25 13:44 Urine Culture - Final
Urine NO GROWTH
01/29/25 04:07 Blood Culture - Final
Blood/Venous No Growth - Final Report
01/28/25 12:24 Blood Culture - Final
Blood/Venous No Growth - Final Report
01/31/25 09:04 Wound Culture - Final
Foot - Left Staph aureus MRSA
Gram Stain - Final
02/01/25 19:47 Influenza Types A & B (GIFTY) - Final
Nasal Swab Negative for Influenza A & B, NAAT
Negative results must be combined with clinical observations
and patient history.
Nucleic Acid Amplification test (NAAT)performed on the
[employer] platform.
01/30/25 10:04 Wound Culture - Final
Foot - Left Staph aureus MRSA
Gram Stain - Final
01/28/25 17:44 MRSA Screen - Final
Nose No Methicillin Resistant Staphylococcus aureus isolated.
Imaging:
01/28/25 Left foot XRAY: No acute osseous abnormality. Mild soft tissue swelling along the lateral forefoot.
02/01/25 CXR: Hazy increased density over the left lower hemithorax, probably mainly due to a posteriorly layering pleural effusion.
02/03/25 CXR: Parenchymal opacity within the right lower lung and the left mid to lower lung, similar to recent radiograph. Main differential considerations of atelectasis and/or pneumonia.
02/04/25 CT LE: 1. Interval amputation of the phalanges of the left 5th toe and the 5th metatarsal head since the prior exam performed 02/01/2025.
2. Large soft tissue wound distal to the 5th metatarsal with soft tissue emphysema extending deep to the lateral cortex of the 4th metatarsal head.
3. Moderate subcutaneous edema throughout the left lower leg and thigh.
4. Moderate to severe calcific atherosclerotic plaque throughout the left lower extremity.
5. Small to moderate-sized left knee joint effusion.
6. Severe anasarca in the left lateral abdominal wall.
7. Moderate retroperitoneal and extraperitoneal edema in the pelvis.
8. Severe diffuse urinary bladder wall thickening with adjacent perivesical inflammation suggesting ACUTE CYSTITIS. Chronic urinary bladder outlet obstruction is also likely present given severe enlargement of the prostate gland.
9. Mild circumferential wall thickening and fluid distention of the rectum suggesting an acute prostatitis. Rectal tube in place.
02/07/25 CXR/AXR: Extremely low lung volumes. Some bibasilar opacification which could represent atelectasis and/or pneumonia and small bilateral pleural effusions, left possibly greater than right. Air seen throughout small bowel, few loops
borderline prominent, nonspecific air-fluid levels, most likely representing ileus. No free air.
02/23/25 Abd US: Gallstones and sludge present with a positive sonographic Edwards's sign and mild wall thickening. Findings likely represent acute cholecystitis. There is no evidence of biliary duct dilation. The common bile duct measures 6 mm.
02/24/25 HIDA: There is no uptake within the gallbladder seen on initial and post morphine images. Findings are consistent with acute cholecystitis.
Care Review
Plan reviewed with: Physician (Dr. Khalif Archer)
[2025-03-13 11:48] LABS: Hematocrit 24.1 % (39.0-52.0); Hemoglobin 7.9 g/dL (13.0-18.0); Mean Corp Hgb Conc. 32.8 g/dL (33.0-37.0); Mean Corpuscular Volume 90.3 fL (80.0-94.0); Platelet Count 267 10^3/uL (130-400); Red Cell Dist. Width 16.1 % (11.5-14.5)
--- NOTE | 2025-03-13 12:54 | W.PN.NEPH.PH ---
Today's Communication / Plan
-
for [facility] today
Assessment/Plan
-
IMP:
TME
Septic shock
Lactic acidosis
Sepsis 2/2 to Diabetic left foot cellulitis w/ lymphangitis
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
Acute kidney injury-baseline cr 0.9-1.1
Peripheral artery disease
hyponatremia
IDDM 2
Essential hypertension
Constipation
A-fib�permanent
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
HLD
Obesity due to excess calories
cholecystitis status post cholecystotomy tube
Plan:
stable better at 0.9
cont lasix for edema-seem improving
bp low post procardia at night so move to morning
if still is issue likely resume lisinopril 20mg daily and d/c procardia
follow h/h
d/w son in the room
-
-
Date of Service: March 13, 2025
CC / HPI / ROS
-
Chief Complaint:
JESUS
History of Present Illness:
JESUS/HD
JESUS/Cr better at 0.9., k 3.8
diuresing well with IV lasix
Cholecystotomy tube placed with good drainage 02/24/25
Hemodynamically stable on Procardia and BB
Hgb up at 7.9
Review of Systems:
Nonoliguric
no fever
still UE edema but improving
Labs
-
Labs:
WBC 12.4 10^3/uL (4.8-10.8) H 03/13/25 11:36
RBC 2.67 10^6/uL (4.70-6.10) L 03/13/25 11:36
Hgb 7.9 g/dL (13.0-18.0) L 03/13/25 11:36
Hct 24.1 % (39.0-52.0) L 03/13/25 11:36
Plt Count 267 10^3/uL (130-400) 03/13/25 11:36
Sodium 135 mmol/L (135-145) 03/13/25 04:08
Potassium 3.8 mmol/L (3.5-5.1) 03/13/25 04:08
Chloride 105 mmol/L (98-107) 03/13/25 04:08
Carbon Dioxide 28 mmol/L (22-30) 03/13/25 04:08
BUN 13 mg/dl (9-20) 03/13/25 04:08
Creatinine 0.9 mg/dL (0.7-1.3) 03/13/25 04:08
eGFR > 60.00 03/13/25 04:08
Glucose 171 mg/dl (70-99) H 03/13/25 04:08
Calcium 8.7 mg/dl (8.4-10.2) 03/13/25 04:08
Phosphorus 4.4 mg/dl (2.5-4.5) 02/26/25 03:52
Oix-B-Yornfnuoiga Pept > 79660 pg/ml 02/01/25 20:16
Albumin 2.6 g/dl (3.5-5.0) L 03/10/25 04:30
Physical Exam
-
Vital Signs:
Vital Signs
Temp Pulse Resp BP Pulse Ox
98.6 F 79 17 133/77 96
03/13/25 11:37 03/13/25 12:00 03/13/25 12:00 03/13/25 12:00 03/13/25 10:25
Cardiovascular:: Regular rate and rhythm
Respiratory:: Bilateral: CTA
Lung Excursion:: Normal
Abdomen:: Nontender and Soft
Bowel Sounds:: Normal
Extremity Edema:: +1: Bilateral: (UE, mainly left -dependant )
Gonzalez Catheter: No
[2025-03-13 13:20] LABS: Glucose - Point of Care 163 mg/dl (70-99)
--- NOTE | 2025-03-13 14:05 | W.PN.POD ---
Today's Communication
Today's Communication
S/P left partial 5th ray amp
Assessment / Plan
-
S/P repeat left foot debridement with more proximal 5th ray amputation - POD #7
PAD - S/P Left LE revascularization
Type 2 Diabetes with neuropathy
Plan:
The left foot wound VAC was removed for transfer to [facility]. Proximal margin pathology clean - D/c PICC per ID. Reapply VAC at rehab - change MWF. No further surgical plans. Follow up outpatient in office next week.
Subjective
Chief Complaint
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
Subjective
Patient seen at bedside - awake, relates some tightness in the area of the wound vac
Objective
Temp Pulse Resp BP Pulse Ox
98.6 F 79 17 133/77 96
03/13/25 11:37 03/13/25 12:00 03/13/25 12:00 03/13/25 12:00 03/13/25 10:25
03/13/25 11:36
03/13/25 04:08
Vital Signs and Lab results were reviewed.
Physical Exam
Physical Exam
Left foot with bandages in place, no strikethrough. VAC running at 125 mmHg. Upon removal of the VAC the wound appears viable. Minimal granulation tissue around the edges. wound is approximately 40% granular beginning from proximal lateral margin
It measures 3.5 cm x 2.4 cm x 0.4 cm. There is exposed fascia centrally. No signs of infection or ischemia today, viable edges
--- NOTE | 2025-03-13 14:15 | WOUNDNOTE ---
[facility] RN Note: Patient seen with Dr. Guzman. Dr. Guzman removed wound vac and placed adaptic, gauze pads and Kerlix for transfer to [facility]. t/c Spoke with Kaur ALLEN Quiles and reviewed wound vac order and to apply wound vac by tomorrow. Skin on
patient's heels intact. Sacral crease dull blanchable red. Sacral shaped silicone border foam maintained. Heels off bed with pillow. Patient has an air chair cushion. Encouraged patient to eat more for wound healing. Family in with patient. Updated
wound care instructions in the discharge instructions per Dr. Guzman's request. Hospital rental vac pump placed in IMU soiled utility room. Patient to follow up with station mechanic apprentice.
[2025-03-13] MEDS: LASIX 20 MG PO (14:56)
--- NOTE | 2025-03-13 14:58 | CM ---
Following up on Patient. DARREN Salamanca checked with Medical Team who stated that patient is ready for discharge.
DARREN Salamanca checked with [facility]s liaison Alanna#[phone] that there is a bed. Patient & family informed of this. [facility] on the 3rd floor:
Report: #[phone]
Fax: #[phone]
PLAN: Disharge to [facility]
--- NOTE | 2025-03-13 15:45 | WOUNDNOTE ---
WOC RN note: Notified [employer] via [facility] [facility] portal of stop bill date of [facility] as of 03/13/25 and sweet pickled fruit maker (work order #[id number]).
--- NOTE | 2025-03-13 16:51 | PTCARENOTE ---
Pt for d/c to [facility]. Report called to receiving RN. PICC d/c by IVT RN. Pt d/c off unit via stretcher. Family at bedside.
--- NOTE | 2025-03-13 18:05 | W.DCSUMMARY ---
Discharge Summary
Discharge Data
Date of Admission: 01/28/25
Date of Discharge: 03/13/25
-
Pending Results: No
Hospital Course
Discharge diagnosis:
Severe sepsis with septic shock
Lactic acidosis
Left fifth metatarsal abscess with acute osteomyelitis
Chronic left lower extremity weakness due to back injury during procedure 2019
Peripheral artery disease
Acute kidney injury requiring transient dialysis
Acute calculous cholecystitis
Ileus
Gastrointestinal bleed
Acute blood loss anemia
Diarrhea
Acute toxic metabolic encephalopathy
Odynophagia secondary to severe esophagitis
Hypokalemia
Hematuria
Acute on chronic heart failure with a preserved ejection fraction
Nonischemic myocardial injury troponin elevation
Permanent atrial fibrillation
Nonobstructive coronary artery disease
2 episodes of nonsustained ventricular tachycardia
Labile hypertension
Hyponatremia
Hyperphosphatemia
Type 2 diabetes
Hyperlipidemia
Chronic back pain
Adjustment disorder
Obesity due to excess calories
Consults: Podiatry, vascular surgery, nephrology, cardiology, GI, ID, corporate ethics officer
Procedures:
02/03/25�left partial fifth ray amputation
02/13/2025�EGD showing grade D esophagitis
02/24/2025�percutaneous cholecystostomy tube placement
03/04/2025�left lower extremity angioplasty
03/06/2025�partial 5th ray amputation with wound debridement to the level of bone. Wound vacuum-assisted closure application.
Hospital course:
79-year-old male with a past medical history of atrial fibrillation on Xarelto, diabetes, hypertension, and hyperlipidemia who was admitted for septic shock secondary to left fifth metatarsal abscess with acute osteomyelitis. Cultures grew out
MRSA. Patient was seen in conjunction with ID, and started on vancomycin. His Xarelto was held, and he was treated with an IV heparin drip. Patient was seen in conjunction with podiatry, and underwent left partial fifth ray amputation on
02/04/2025. Patient was hypotensive, with an elevated lactic acid. He did intermittently require Levophed, and was seen in conjunction with the corporate ethics officer.
Patient was seen in conjunction with ID. ID transitioned his vancomycin to daptomycin.
Patient also had acute kidney injury requiring dialysis. He was seen in conjunction with nephrology, and received dialysis.
Patient's hospital course was complicated by ileus, GI bleed, odynophagia, and severe esophagitis. He was seen in conjunction with GI. Endoscopy showed grade D esophagitis. He was treated with Protonix and Carafate. He also required tube feeds
transiently. His ileus resolved, his GI bleed also resolved. Eventually was able to tolerate a diet. Upon discharge, he will need to continue pantoprazole 40 mg twice daily for 2 weeks, then daily. He also needs to continue sucralfate 1 g twice
daily for 10 days, then 1 g daily for 2 weeks, then stop. He has been counseled to avoid all NSAIDs.
Patient also had acute cholecystitis. He was seen in conjunction with general surgery. He had percutaneous cholecystostomy tube placement by IR on 02/24/2025. He was treated with a full course of antibiotics for his cholecystitis. He needs to
follow-up with general surgery in the office in 3-4 weeks for cholecystectomy.
Patient was seen in conjunction with vascular surgery. He did have renal recovery, and was able to have left lower extremity angioplasty on 03/04/2025. Vascular surgery notes he has good blood flow. Vascular surgery recommends outpatient follow-up.
Patient's bone margins from 02/03/25 was positive for osteomyelitis. He was taken back for repeat partial 5th ray amputation with wound debridement to the level of bone, and application of wound VAC. Podiatry recommends biologic grafting to assist
in healing. Patient declined. Patient's bone margin on 03/06/2025 was negative for osteomyelitis. ID discontinued his vancomycin on 03/13/2025. He no longer needs antibiotics.
Patient had fluid overload intermittently. He received IV Lasix as needed.
Patient's hemoglobin trended down. He had a CAT scan that was negative for bleeding. He no longer had any bloody stools. Suspect his worsening anemia was due to his sepsis, and renal disease. He received a total of 2 units of packed red blood
cells. His hemoglobin improved, and remained stable on the day of discharge.
Patient's blood pressure increased, and he tended to have labile hypertension. Nephrology started him on nifedipine 30 mg p.o. every night.
Patient's multiple medical conditions have been optimized. He is discharged to [facility]. He needs to follow-up with podiatry, vascular surgery, general surgery, and his PCP in the office.
Disposition: Acute rehab
Discharge planning: Required 41 minutes
Discharge Plan
-
Patient Disposition: Acute Rehab Facility
Activity: No strenuous activity
Others Tests: Your follow-up arterial ultrasound is scheduled on 03/26/2025 at 1 PM here at [facility]
Activity Restrictions/Additional Instructions:
Your bone margins were clean, you do not need any more antibiotics.
Take pantoprazole 40 mg twice a day for 2 weeks, then once daily.
Take Carafate taper:
1 g twice a day for 12 days,
1 g daily for 14 days,
Then stop.
Please avoid all [id number] NSAID medications such as ibuprofen, naproxen, Aleve, Motrin, Advil.
These medications can cause GI bleeding.
Please follow-up with podiatry, vascular surgery, and general surgery as directed.
Please follow-up with your PCP 1 week after you leave rehab.
Wound Care Instructions
L foot wound-Wound vac therapy, use Adaptic to wound (avoid covering incision with vac drape) then black foam to open wound (bridge to dorsal foot). Change every 48 - 72 hours (i. e. Krxzidm-Dojvvgtahh-Kjsptig) and prn if unable to obtain a seal.
Low Intensity, Continuous at 125 mmHg. Please pad medial, lateral foot and anterior ankle with 4x4's prior to applying Kerlix. Do not pull Kerlix too tight. Upon discharge or transfer to another facility, remove VAC foam and apply NS moistened
gauze dressing unless home VAC unit available.
Offload heels on pillows in bed.
Left lower extremity/Wt. bearing as tolerated/use orthowedge shoe and rolling walker
Pressure redistributing chair cushion (i.e. Air, Roho).
Air mattress.
Follow up with resource management planner Dr. Ani Guzman.
Follow up with vascular surgeon.
Stand Alone Forms: Vascular Surg Discharge Instr
Referrals:
Ani Guzman DPM [Active, Podiatry] - in one week
Kasey Pathak MD [Family Provider, Endocrinology] - in four to six weeks
Bernabe Juarez MD [Active, Surgical] - in three to four weeks
Savanah Huggins CRNP [Specified Professional Personl, Vascular Surgery] - 04/02/25 10:00 am
Prescriptions:
New
sucralfate 100 mg/mL Suspension
See Rx Instructions .ROUTE .COMPLEX Qty: 500 0RF
Rx Instructions:
1gm BID x12 days, then 1gm daily x14 days, then stop
lidocaine 4 % Adhesive Patch,Medicated
1 patch topical DAILY Qty: 0 0RF
atorvastatin 10 mg Tablet
10 mg PO QPM Qty: 0 0RF
miconazole nitrate [Miconazorb AF] 2 % Powder
1 applic topical BID Qty: 0 0RF
insulin aspart U-100 100 unit/mL (3 mL) Insulin Pen
5 unit SC AC Qty: 0 0RF
escitalopram oxalate 5 mg Tablet
5 mg PO HS Qty: 0 0RF
Insulin Glargine Lantus [Lantus] 12 UNITS
Subcutaneous Insulin Syringe [Syringe-Insulin] 0 UNIT
As Directed mls/hr SC HS
Ordered By: Tree Archer MD
Last Taken: 03/12/25 23:00 0.12 mls
nifedipine 30 mg Tablet Extended Release
30 mg PO QPM Qty: 30 0RF
pantoprazole 40 mg Tablet,Delayed Release (Dr/Ec)
See Rx Instructions .ROUTE .COMPLEX Qty: 60 0RF
Rx Instructions:
1 tab BIDx2 weeks, then 1 tab daily
Saline Nasal 0.65 % Aerosol,[place]
2 sprays intranasal QIDPRN PRN (Reason: dry nose/congestion) Qty: 0 0RF
acetaminophen 325 mg Tablet
975 mg PO TIDPRN PRN (Reason: pain or fever) Qty: 0 0RF
Continued
metformin 1,000 MG tablet
1,000 mg PO BID@0800,1700 Qty: 0 0RF
Rx Instructions:
Resume on Monday 6/ evening
Probiotic 5 billion cell Capsule, Sprinkle
1 cap PO DAILY
metoprolol succinate 25 MG tablet extended release 24 hr
25 mg PO BID
Xarelto 20 MG tablet
20 mg PO QPM
Changed
psyllium Packet
1 packet PO BID PRN (Reason: Constipation) Qty: 0 0RF
Discontinued
lovastatin 40 MG tablet
40 mg PO HS
insulin aspart U-100 [Novolog U-100 Insulin aspart] 1,000 UNITS/10 ML solution
4 - 14 units SC AC
hydrochlorothiazide 50 MG tablet
50 mg PO DAILY
lisinopril 20 MG tablet
20 mg PO BID
hydralazine 25 mg tablet
25 mg PO BID
insulin degludec 100 unit/mL (3 mL) insulin pen
24 unit SC HS
Discharge Orders:
Discharge Patient (As Directed); Ordered 03/13/25
Ordered By: Tree Archer
Discharge Date and Time
Discharge Date/Time: 03/13/25 17:00
Print Language: MALAY
== END 2025-03-13 17:00 | DRG 853 ==
LOC: IMU 15:15
PROVIDERS: Clinical Nurse Specialist Family Health; Hospitalist; Internal Medicine; Internal Medicine Critical Care Medicine; Internal Medicine Nephrology; Nurse Practitioner Family; Nurse Practitioner Gerontology; Radiology Diagnostic Radiology; Radiology Vascular & Interventional Radiology; Registered Nurse; Specialist; ADMITTING PHYSICIAN Hospitalist; ATTENDING PHYSICIAN Family Medicine; CONSULT PHYSICIAN Internal Medicine; CONSULT PHYSICIAN Internal Medicine Cardiovascular Disease; CONSULT PHYSICIAN Internal Medicine Infectious Disease; CONSULT PHYSICIAN Physical Medicine & Rehabilitation; CONSULT PHYSICIAN Podiatrist; CONSULT PHYSICIAN Surgery Vascular Surgery; EMERGENCY PHYSICIAN Emergency Medicine; FAMILY PHYSICIAN Internal Medicine Endocrinology, Diabetes & Metabolism; OTHER PHYSICIAN Psychiatry & Neurology Psychiatry; OTHER PHYSICIAN Specialist; OTHER PHYSICIAN Surgery
PROC: 0H9NXZZ Drainage of Left Foot Skin, External Approach (ICD-10-PCS; 2025-01-31)
PROC: 5A1D70Z Performance of Urinary Filtration, Intermittent, Less than 6 Hours Per Day (ICD-10-PCS; 2025-02-02)
PROC: 0Y6N0ZF Detachment at Left Foot, Partial 5th Ray, Open Approach (ICD-10-PCS; 2025-02-03)
PROC: 03HY32Z Insertion of Monitoring Device into Upper Artery, Percutaneous Approach (ICD-10-PCS; 2025-02-03)
PROC: 02HV33Z Insertion of Infusion Device into Superior Vena Cava, Percutaneous Approach (ICD-10-PCS; 2025-02-03)
PROC: 02H633Z Insertion of Infusion Device into Right Atrium, Percutaneous Approach (ICD-10-PCS; 2025-02-10)
PROC: 0JH63XZ Insertion of Tunneled Vascular Access Device into Chest Subcutaneous Tissue and Fascia, Percutaneous Approach (ICD-10-PCS; 2025-02-10)
PROC: 0DB58ZX Excision of Esophagus, Via Natural or Artificial Opening Endoscopic, Diagnostic (ICD-10-PCS; 2025-02-13)
PROC: 0F9430Z Drainage of Gallbladder with Drainage Device, Percutaneous Approach (ICD-10-PCS; 2025-02-24)
PROC: 30233N1 Transfusion of Nonautologous Red Blood Cells into Peripheral Vein, Percutaneous Approach (ICD-10-PCS; 2025-02-26)
PROC: 047N3ZZ Dilation of Left Popliteal Artery, Percutaneous Approach (ICD-10-PCS; 2025-03-04)
PROC: 04FS3ZZ Fragmentation of Left Posterior Tibial Artery, Percutaneous Approach (ICD-10-PCS; 2025-03-04)
PROC: 0JPT3XZ Removal of Tunneled Vascular Access Device from Trunk Subcutaneous Tissue and Fascia, Percutaneous Approach (ICD-10-PCS; 2025-03-04)
PROC: B41G1ZZ Fluoroscopy of Left Lower Extremity Arteries using Low Osmolar Contrast (ICD-10-PCS; 2025-03-04)
PROC: 05PY33Z Removal of Infusion Device from Upper Vein, Percutaneous Approach (ICD-10-PCS; 2025-03-04)
PROC: 047S3ZZ Dilation of Left Posterior Tibial Artery, Percutaneous Approach (ICD-10-PCS; 2025-03-04)
PROC: 04FN3ZZ Fragmentation of Left Popliteal Artery, Percutaneous Approach (ICD-10-PCS; 2025-03-04)
PROC: 0JBR0ZZ Excision of Left Foot Subcutaneous Tissue and Fascia, Open Approach (ICD-10-PCS; 2025-03-06)
DX: A41.02 Sepsis due to Methicillin resistant Staphylococcus aureus (principal); G92.8 Other toxic encephalopathy; I50.33 Acute on chronic diastolic (congestive) heart failure; R65.21 Severe sepsis with septic shock; J69.0 Pneumonitis due to inhalation of food and vomit; J96.01 Acute respiratory failure with hypoxia; I48.21 Permanent atrial fibrillation; L03.116 Cellulitis of left lower limb; E87.1 Hypo-osmolality and hyponatremia; N17.9 Acute kidney failure, unspecified; E87.20 Acidosis, unspecified; L02.612 Cutaneous abscess of left foot; M86.172 Other acute osteomyelitis, left ankle and foot; E11.52 Type 2 diabetes mellitus with diabetic peripheral angiopathy with gangrene; K22.10 Ulcer of esophagus without bleeding; K80.00 Calculus of gallbladder with acute cholecystitis without obstruction; I70.262 Atherosclerosis of native arteries of extremities with gangrene, left leg; K56.7 Ileus, unspecified; K92.2 Gastrointestinal hemorrhage, unspecified; D62 Acute posthemorrhagic anemia; I5A Non-ischemic myocardial injury (non-traumatic); I47.20 Ventricular tachycardia, unspecified; E11.69 Type 2 diabetes mellitus with other specified complication; I11.0 Hypertensive heart disease with heart failure; E11.42 Type 2 diabetes mellitus with diabetic polyneuropathy; E11.628 Type 2 diabetes mellitus with other skin complications; I25.10 Atherosclerotic heart disease of native coronary artery without angina pectoris; Y83.8 Other surgical procedures as the cause of abnormal reaction of the patient, or of later complication, without mention of misadventure at the time of the procedure; M48.02 Spinal stenosis, cervical region; E11.621 Type 2 diabetes mellitus with foot ulcer; L97.529 Non-pressure chronic ulcer of other part of left foot with unspecified severity; E87.5 Hyperkalemia; E78.00 Pure hypercholesterolemia, unspecified; E87.6 Hypokalemia; N30.91 Cystitis, unspecified with hematuria; E83.39 Other disorders of phosphorus metabolism; L98.8 Other specified disorders of the skin and subcutaneous tissue; E83.42 Hypomagnesemia; E11.65 Type 2 diabetes mellitus with hyperglycemia; B36.9 Superficial mycosis, unspecified; E66.09 Other obesity due to excess calories; G89.29 Other chronic pain; T14.90XS Injury, unspecified, sequela; F43.20 Adjustment disorder, unspecified; R29.898 Other symptoms and signs involving the musculoskeletal system; Z11.52 Encounter for screening for COVID-19; Z68.30 Body mass index [BMI] 30.0-30.9, adult; Z79.01 Long term (current) use of anticoagulants; Z79.4 Long term (current) use of insulin; Z79.899 Other long term (current) drug therapy; Z95.0 Presence of cardiac pacemaker
CPT/HCPCS: 36556; 36558; 36573; 36589; 36600; 47490; 71045; 73630; 73700; 74018; 74022; 74176; 75625; 75635; 75710; 76000; 76700; 76937; 77001; 78226; 80048; 80053; 80061; 80076; 80202; 81003; 81015; 81099; 82040; 82248; 82550; 82570; 82728; 82805; 82962; 83516; 83540; 83550; 83605; 83690; 83735; 83880; 84100; 84300; 84484; 85014; 85018; 85025; 85027; 85379; 85384; 85610; 85652; 85730; 86038; 86039; 86140; 86160; 86704; 86706; 86803; 86850; 86900; 86901; 86920; 87040; 87070; 87075; 87086; 87147; 87176; 87186; 87205; 87324; 87340; 87449; 87502; 87811; 88304; 88305; 88311; 88342; 92526; 92610; 93005; 93306; 93922; 93925; 93971; 94640; 96361; 96374; 96375; 97110; 97116; 97163; 97167; 97530; 97535; 99152; 99153; 99291; A9537; C1725; C1729; C1750; C1752; C1769; C1894; C9772; G0257; J0878; P9016; P9047; Q5106; Q9967

== ENCOUNTER 2025-03-14 20:46 | Inpatient (IN) | payer MEDICARE, OTHER, SELFPAY ==
[2025-03-14 16:31] VITALS: BP 140/80
[2025-03-14 16:38] LABS: Glucose - Point of Care 138 mg/dl (70-99)
[2025-03-14 16:40] VITALS: BMI 29.6
--- NOTE | 2025-03-14 16:52 | ED.GENMED ---
History of Present Illness
<Hans Scott PA-C - Last Filed: 03/14/25 22:27>
General
Chief Complaint: Change in Mental Status
Time Seen by Provider: 03/14/25 16:31
History of Present Illness
History of Present Illness:
79-year-old male presents to the emergency department from [facility] due to a period of unresponsiveness. He was admitted to [facility] last night after a lengthy complicated hospitalization here, most chiefly was admitted for a diabetic foot
infection and subsequently developed cholecystitis with placement of percutaneous cholecystotomy tube. He was treated with daptomycin for the foot infection, this was discontinued yesterday after 39 days, also completed cefazolin and metronidazole
for cholecystitis on 03 08. Not currently on antibiotics. Reportedly was noted to have hypoxia last night it worsened today and a chest x-ray showed pulmonary edema. On arrival to the ED the patient appears somewhat confused however he is aware of
person place and time, he is not certain why he is returning to the emergency department. Per his he 'looks like he just woke up from anesthesia'. Arrives on 2 L nasal cannula
Past History
<Hans Scott PA-C - Last Filed: 03/14/25 22:27>
Past History
ED Past Medical History: Arrthythmia (atrial fibrillation), CAD, HTN, Hypercholesterolemia, IDDM, NIDDM and Other (Back pain, hepatitis secondary to mononucleosis in 1989)
ED Past Surgical History: Orthopedic (lumbar laminectomy, bilateral knee arthroscopy) and Other (lumbar epidural steroid injection, spinal nerve stimulator implant)
Social History
Tobacco: Non-smoker
Alcohol: None
Drug: None
Personal:
Living: with family
Employment: Employed
Family History
Family History: Other (reviewed and noncontributory)
Review of Systems
<Hans Scott PA-C - Last Filed: 03/14/25 22:27>
Review of Systems
Allergies reviewed?: Yes
All Other Systems: ROS reviewed and negative except as documented in HPI and ROS
Phy Exam
<Hans Scott PA-C - Last Filed: 03/14/25 22:27>
Physical Exam
Physical Exam:
GEN: Chronically ill-appearing, no immediate distress
HEENT: Oral mucosa moist, no scleral icterus
Cardiac: Irregular, controlled rate
Lung: No respiratory distress, no tachypnea, expiratory crackles heard throughout all lung richardson
Abdomen: Soft, nontender
MSK: No gross deformity or injuries
Skin: Good color, no pallor or jaundice, no rashes
Neuro: AO x3, moves all extremities freely, globally weak however symmetric strength x 4, cranial nerves II through XII grossly intact
Psych: Calm, cooperative
Course
<Hans Scott PA-C - Last Filed: 03/14/25 22:27>
Orders/Labs/Results
Orders:
Orders
03/14/25 Dinner
2000 calorie (17 carb) Diabetic
At Your Request: Full Participation
Diabetic Diet: Sodium, 2 Gram
Oral Supplement (If unsure of flavor order apple or vanilla): Ensure High Protein
Supplement Frequency: Daily
03/14/25 16:42
CT Head W/o Iv Contrast Urgent
Comment:
Reason For Exam: AMS
03/14/25 17:10
Complete Blood Count/With Diff Urgent
Comprehensive Metabolic Panel Urgent
Venous Blood Gas Urgent
%Oxygen/Room Air: 78
03/14/25 18:01
NT-proBNP Urgent
03/14/25 19:47
Urinalysis Reflex To Culture Urgent
Date Specimen was Collected: 03/14/25
Time Specimen was Collected: 19:46
Urine Microscopic Reflex Cult Urgent
Urine Culture Urgent
SHAWNA Source: U
Specimen Description:
Date Specimen was Collected: 03/14/25
Time Specimen was Collected: 19:46
03/14/25 19:56
Furosemide [Lasix] 20 mg IV NOW STA
03/14/25 20:20
Admit/Transfer Patient As Directed
Co-Sign Provider:
Level of Care: Inpatient admission
Assign to:: Telemetry
Physician / Group: [facility]
Diagnosis: Hypoxia, Pulmonary Edema
Reason for Telemetry: Acute Heart Failure
Date to Stop Telemetry: 03/17/25
Time to Stop Telemetry: 11:00
Reason for Hospitalization: IV diuretics
Expected length of stay greater than two midnights?: Yes
ELOS- Estimated Length of Stay in days: 3
I certify the patient meets the requirements for IP care: Yes
PRN Pain Medication Management As Directed
May give lesser potent ordered pain med per pt: Yes
preference::
Protocol:: Medication orders for pain may be administered in a
manner that supports deferring to patient preference
when the pt is:
- Requesting an ordered lesser potent pain medication.
Least to most potent pain medications are defined
as: acetaminophen < NSAID < tramadol < opioids
(morphine, oxycodone, hydromorphone).
- Requesting a lesser dose of the same medication IF
ORDERED.
- Requesting a less intrusive route of administration
if both routes are prescribed by the provider (PO <
IV).
03/14/25 20:24
Code Status As Directed
Resuscitation Status: Full Code
03/14/25 21:14
Dextrose 50%-Water [Dextrose 50% Syringe] 12.5 grams IV [id number] PRN
Glucagon [GlucaGen] 1 mg IM PRN PRN
03/14/25 21:14
HF DIETARY CONSULT Routine
HF EDUCATOR CONSULT Routine
Comment:
WOUND/OSTOMY CONSULT Routine
Reason for Consult: left foot wound with wound vac
Activity As Directed
Activity Level: Out of Bed- Chair
Bedside Glucose Monitoring As Directed
Frequency: AC&HS
Additional Instructions:: Change to q6h if pt on TPN, tube feeding or not eating
Intake/ Output As Directed
Frequency: Per unit guidelines
Patient Education As Directed
Type: CHF folder
Comment: give on admission. Document in Interdisciplinary Education record
Sleep Apnea Assessment by RN As Directed
Comment:
Physician Instructions:
Vital Signs As Directed
Frequency: Other
Additional Instructions:: Q12 or per unit guidelines if more frequent.
Weight As Directed
Frequency: Daily
Type of Scale: Standing Scale
Comment: Daily morning weight. If unable to stand, use balanced bed scale.
Weight As Directed
Frequency: Once
Type of Scale: Standing Scale
Comment: Upon Admission. If unable to stand, use balanced bed scale.
Oxygen Therapy [O2 Therapy] [RESP] Routine
Titrate/Wean O2 to maintain O2 sat greater than (%): 92
Pulse Ox/cont/shift [RESP] Routine
Quantity: 1
Special Instructions: Daily pulse oximetry at rest. If greater than 92% at rest also obtain pulse oximetry
while ambulating as tolerated.
Rx Incentive Spirometry [RESP] Routine
Frequency: q1h while awake
Ot Eval And Treat Routine
Pt Eval And Treat Routine
Activity Level: Out of Bed-Early Mobility
03/14/25 22:00
Escitalopram Oxalate [Lexapro] 5 mg PO HS
insulin glargine [Lantus Solostar U-100 Insulin] 12 unit SC HS
03/15/25 06:00
Basic Metabolic Panel IN AM
Complete Blood Count/No Diff IN AM
Glycohemoglobin (HgbA1c) IN AM
Magnesium IN AM
03/15/25 07:30
Insulin Aspart Corrective Mod [Novolog Flexpen-Moderate Resistance] See Protocol SC AC
Insulin Aspart Pen [Novolog Flexpen] 5 units SC AC
03/15/25 08:00
Furosemide [Lasix] 20 mg IV BID
Metoprolol Xl [Toprol Xl] 25 mg PO BID
Pantoprazole [Protonix] 40 mg PO BID
Sucralfate Suspension [Carafate Suspension] 1 gm PO BID
03/15/25 18:00
Atorvastatin [Lipitor] 10 mg PO QPM
NIFEdipine EXTENDED RELEASE [Procardia Xl (Extended Release)] 30 mg PO QPM
Rivaroxaban [Xarelto] 20 mg PO QPM
03/16/25 06:00
Basic Metabolic Panel IN AM
03/17/25 06:00
Basic Metabolic Panel IN AM
03/17/25 11:00
DC Protocol for Telemetry ONCE
Abnormal Lab Results
03/14/25 03/14/25 03/14/25
16:35 17:10 19:47
WBC 11.6 H 10^3/uL
(4.8-10.8)
RBC 2.86 L 10^6/uL
(4.70-6.10)
Hgb 8.3 L g/dL
(13.0-18.0)
Hct 25.5 L %
(39.0-52.0)
MCHC 32.5 L g/dL
(33.0-37.0)
RDW 16.3 H %
(11.5-14.5)
Abs Immat Gran (auto) 0.1 H 10^3/uL
(0-0.05)
Absolute Neuts (auto) 8.7 H 10^3/uL
(1.4-6.5)
Absolute Monos (auto) 1.1 H 10^3/uL
(0.1-0.6)
Immature Gran % 0.6 H %
(0-0.5)
Lymphocytes % 12.8 L %
(20.5-51.1)
Monocytes % 9.5 H %
(1.7-9.3)
VBG pH 7.44 H
(7.32-7.43)
VBG pO2 173 H mmHg
(30-50)
Sodium 134 L mmol/L
(135-145)
Glucose 128 H mg/dl
(70-99)
AST 15 L U/L
(17-59)
Albumin 3.1 L g/dl
(3.5-5.0)
Ur Occult Blood Reflex 2+ A
(Negative)
Urine Bilirubin 2+ A
(Negative)
Leukocyte Esterase Rfl 1+ A
(Negative)
Urine RBC 3-6 A /HPF
(0-2)
Urine Bacteria (Reflex) Few A
(Negative)
Urine Albumin (Reflex) 3+ A
(Neg - Trace)
POC Glucose 138 H mg/dl
(70-99)
03/14/25 17:10
03/14/25 17:10
Vital Signs
Initial and Last Documented VS:
Initial Vital Signs
Pulse Resp Pulse Ox
79 16 92
03/14/25 16:30 03/14/25 16:30 03/14/25 16:30
Last Documented Vital Signs
Temp Pulse Resp BP Pulse Ox
98.4 F 84 19 137/60 99
03/14/25 22:09 03/14/25 22:09 03/14/25 22:09 03/14/25 22:09 03/14/25 22:09
<Isael Ellsworth, - Last Filed: 03/14/25 19:19>
Orders/Labs/Results
Orders:
Orders
03/14/25 Dinner
2000 calorie (17 carb) Diabetic
At Your Request: Full Participation
Diabetic Diet: Sodium, 2 Gram
Oral Supplement (If unsure of flavor order apple or vanilla): Ensure High Protein
Supplement Frequency: Daily
03/14/25 16:42
CT Head W/o Iv Contrast Urgent
Comment:
Reason For Exam: AMS
03/14/25 17:10
Complete Blood Count/With Diff Urgent
Comprehensive Metabolic Panel Urgent
Venous Blood Gas Urgent
%Oxygen/Room Air: 78
03/14/25 18:01
NT-proBNP Urgent
03/14/25 19:47
Urinalysis Reflex To Culture Urgent
Date Specimen was Collected: 03/14/25
Time Specimen was Collected: 19:46
Urine Microscopic Reflex Cult Urgent
Urine Culture Urgent
SHAWNA Source: U
Specimen Description:
Date Specimen was Collected: 03/14/25
Time Specimen was Collected: 19:46
03/14/25 19:56
Furosemide [Lasix] 20 mg IV NOW STA
03/14/25 20:20
Admit/Transfer Patient As Directed
Co-Sign Provider:
Level of Care: Inpatient admission
Assign to:: Telemetry
Physician / Group: [facility]
Diagnosis: Hypoxia, Pulmonary Edema
Reason for Telemetry: Acute Heart Failure
Date to Stop Telemetry: 03/17/25
Time to Stop Telemetry: 11:00
Reason for Hospitalization: IV diuretics
Expected length of stay greater than two midnights?: Yes
ELOS- Estimated Length of Stay in days: 3
I certify the patient meets the requirements for IP care: Yes
PRN Pain Medication Management As Directed
May give lesser potent ordered pain med per pt: Yes
preference::
Protocol:: Medication orders for pain may be administered in a
manner that supports deferring to patient preference
when the pt is:
- Requesting an ordered lesser potent pain medication.
Least to most potent pain medications are defined
as: acetaminophen < NSAID < tramadol < opioids
(morphine, oxycodone, hydromorphone).
- Requesting a lesser dose of the same medication IF
ORDERED.
- Requesting a less intrusive route of administration
if both routes are prescribed by the provider (PO <
IV).
03/14/25 20:24
Code Status As Directed
Resuscitation Status: Full Code
03/14/25 21:14
Dextrose 50%-Water [Dextrose 50% Syringe] 12.5 grams IV [id number] PRN
Glucagon [GlucaGen] 1 mg IM PRN PRN
03/14/25 21:14
HF DIETARY CONSULT Routine
HF EDUCATOR CONSULT Routine
Comment:
WOUND/OSTOMY CONSULT Routine
Reason for Consult: left foot wound with wound vac
Activity As Directed
Activity Level: Out of Bed- Chair
Bedside Glucose Monitoring As Directed
Frequency: AC&HS
Additional Instructions:: Change to q6h if pt on TPN, tube feeding or not eating
Intake/ Output As Directed
Frequency: Per unit guidelines
Patient Education As Directed
Type: CHF folder
Comment: give on admission. Document in Interdisciplinary Education record
Sleep Apnea Assessment by RN As Directed
Comment:
Physician Instructions:
Vital Signs As Directed
Frequency: Other
Additional Instructions:: Q12 or per unit guidelines if more frequent.
Weight As Directed
Frequency: Daily
Type of Scale: Standing Scale
Comment: Daily morning weight. If unable to stand, use balanced bed scale.
Weight As Directed
Frequency: Once
Type of Scale: Standing Scale
Comment: Upon Admission. If unable to stand, use balanced bed scale.
Oxygen Therapy [O2 Therapy] [RESP] Routine
Titrate/Wean O2 to maintain O2 sat greater than (%): 92
Pulse Ox/cont/shift [RESP] Routine
Quantity: 1
Special Instructions: Daily pulse oximetry at rest. If greater than 92% at rest also obtain pulse oximetry
while ambulating as tolerated.
Rx Incentive Spirometry [RESP] Routine
Frequency: q1h while awake
Ot Eval And Treat Routine
Pt Eval And Treat Routine
Activity Level: Out of Bed-Early Mobility
03/14/25 22:00
Escitalopram Oxalate [Lexapro] 5 mg PO HS
insulin glargine [Lantus Solostar U-100 Insulin] 12 unit SC HS
03/15/25 06:00
Basic Metabolic Panel IN AM
Complete Blood Count/No Diff IN AM
Glycohemoglobin (HgbA1c) IN AM
Magnesium IN AM
03/15/25 07:30
Insulin Aspart Corrective Mod [Novolog Flexpen-Moderate Resistance] See Protocol SC AC
Insulin Aspart Pen [Novolog Flexpen] 5 units SC AC
03/15/25 08:00
Furosemide [Lasix] 20 mg IV BID
Metoprolol Xl [Toprol Xl] 25 mg PO BID
Pantoprazole [Protonix] 40 mg PO BID
Sucralfate Suspension [Carafate Suspension] 1 gm PO BID
03/15/25 18:00
Atorvastatin [Lipitor] 10 mg PO QPM
NIFEdipine EXTENDED RELEASE [Procardia Xl (Extended Release)] 30 mg PO QPM
Rivaroxaban [Xarelto] 20 mg PO QPM
03/16/25 06:00
Basic Metabolic Panel IN AM
03/17/25 06:00
Basic Metabolic Panel IN AM
03/17/25 11:00
DC Protocol for Telemetry ONCE
Abnormal Lab Results
03/14/25 03/14/25 03/14/25
16:35 17:10 19:47
WBC 11.6 H 10^3/uL
(4.8-10.8)
RBC 2.86 L 10^6/uL
(4.70-6.10)
Hgb 8.3 L g/dL
(13.0-18.0)
Hct 25.5 L %
(39.0-52.0)
MCHC 32.5 L g/dL
(33.0-37.0)
RDW 16.3 H %
(11.5-14.5)
Abs Immat Gran (auto) 0.1 H 10^3/uL
(0-0.05)
Absolute Neuts (auto) 8.7 H 10^3/uL
(1.4-6.5)
Absolute Monos (auto) 1.1 H 10^3/uL
(0.1-0.6)
Immature Gran % 0.6 H %
(0-0.5)
Lymphocytes % 12.8 L %
(20.5-51.1)
Monocytes % 9.5 H %
(1.7-9.3)
VBG pH 7.44 H
(7.32-7.43)
VBG pO2 173 H mmHg
(30-50)
Sodium 134 L mmol/L
(135-145)
Glucose 128 H mg/dl
(70-99)
AST 15 L U/L
(17-59)
Albumin 3.1 L g/dl
(3.5-5.0)
Ur Occult Blood Reflex 2+ A
(Negative)
Urine Bilirubin 2+ A
(Negative)
Leukocyte Esterase Rfl 1+ A
(Negative)
Urine RBC 3-6 A /HPF
(0-2)
Urine Bacteria (Reflex) Few A
(Negative)
Urine Albumin (Reflex) 3+ A
(Neg - Trace)
POC Glucose 138 H mg/dl
(70-99)
03/14/25 17:10
03/14/25 17:10
Vital Signs
Initial and Last Documented VS:
Initial Vital Signs
Pulse Resp Pulse Ox
79 16 92
03/14/25 16:30 03/14/25 16:30 03/14/25 16:30
Last Documented Vital Signs
Temp Pulse Resp BP Pulse Ox
98.4 F 84 19 137/60 99
03/14/25 22:09 03/14/25 22:09 03/14/25 22:09 03/14/25 22:09 03/14/25 22:09
<Hans Scott PA-C - Last Filed: 03/14/25 22:27>
MDM/Problems Addressed
MDM/Problems Addressed:
79-year-old male presenting with waxing and waning mental status changes. He is also noted to be hypoxic which is most likely due to pulmonary edema, he has no infectious signs or symptoms at this time. Progressively required higher oxygen demand
in the emergency department thus was initiated on diuresis. This was discussed initially with the spouse however given his recent renal failure she was quite apprehensive to this however eventually agreed that this was the most reasonable approach.
Will be admitted to the hospitalist service for further management
<Hans Scott PA-C - Last Filed: 03/14/25 22:27>
*Pulse Oximetry
SaO2: 92
Patient hypoxic: yes
*Critical Care Note
Total Time (30-74mins, 75-104mins- exclusive of procedures): Not Applicable
ED Attending Note
<Hans Scott PA-C - Last Filed: 03/14/25 22:27>
-
Portions of this chart may have been created with voice recognition software.� Occasional wrong word or��sound alike� substitutions may have occurred due to the inherent limitations of voice recognition software.
<Isael Ellsworth DO - Last Filed: 03/14/25 19:19>
ED Attending Note
Patient seen and examined by attending physician: Yes
I performed the substantive portion of visit, reviewed & personally made and approve the management plan that is documented in note by myself or WIL.: Yes
ED Attending Note:
I evaluated the patient at bedside. The patient is ill-appearing. The patient recently received antibiotics. Reviewed last hospital admission. Currently, he is left heart and really does not participate much with examination. He has more
hypoxic. VBG shows no hypercapnia. Given his overall ill appearance with complex medical history, planning admission to hospital.
Discharge Plan
Departure
Patient Disposition: Admit
Date of Disposition: 03/14/25
Time of Disposition: 19:57
Admit to: Telemetry
Presentation/result/management discussed w/ accepting MD/DO: Hospitalist
Discharge Problem:
Pulmonary edema, Acute hypoxemic respiratory failure
Interventions
Interventions:
*Risk Screen - Suicide Last Done: 03/14/25 16:43
*General Assessment Last Done: 03/14/25 16:43
*Neglect/Abuse Screening Last Done: 03/14/25 16:43
*ED- Fall Risk Assessment Last Done: 03/14/25 16:43
*ED COVID-19 Vaccine History Last Done: 03/14/25 16:43
*Nursing Disposition Last Done: 03/14/25 21:15
ED- Pulmonary Assessment Last Done: 03/14/25 21:10
ED-Psychological Assessment Last Done: 03/14/25 21:10
ED- Neurological Assessment Last Done: 03/14/25 18:56
ED- Cardiac Assessment Last Done: 03/14/25 21:10
Discharge Date and Time
Discharge Date/Time: 03/14/25 21:15
[2025-03-14 17:19] LABS: Venous Blood Gas B.E. 1.6 mmol/L (-4 to +4); Venous Blood Gas O2 Sat % 99.1 %
[2025-03-14 17:21] LABS: Hematocrit 25.5 % (39.0-52.0); Hemoglobin 8.3 g/dL (13.0-18.0); Mean Corp Hgb Conc. 32.5 g/dL (33.0-37.0); Mean Corpuscular Volume 89.2 fL (80.0-94.0); Nucleated Red Blood Cells % 0 % (-); Platelet Count 289 10^3/uL (130-400); Red Cell Dist. Width 16.3 % (11.5-14.5)
[2025-03-14 17:37] LABS: ALT (SGPT) < 10 U/L (0-50); AST (SGOT) 15 U/L (17-59); Albumin 3.1 g/dl (3.5-5.0); Alkaline Phosphatase 73 U/L (38-126); Blood Urea Nitrogen 14 mg/dl (9-20); Calcium 8.8 mg/dl (8.4-10.2); Carbon Dioxide 25 mmol/L (22-30); Chloride 103 mmol/L (98-107); Estimated Creatinine Clearance 68 ml/min; Glucose 128 mg/dl (70-99); Potassium 4.9 mmol/L (3.5-5.1); Sodium 134 mmol/L (135-145); Total Protein 6.4 g/dl (6.3-8.2); eGFR > 60.00
[2025-03-14 17:52] VITALS: BP 134/68
[2025-03-14 18:00] VITALS: BP 125/70
[2025-03-14 19:00] VITALS: BP 125/62
[2025-03-14 19:56] LABS: Urine Character Clear (Clear)
[2025-03-14] MEDS: LASIX 20 MG IV (20:02)
--- NOTE | 2025-03-14 20:56 | HPS.HSE ---
Family Physician
-
Family Physician: Kasey Pathak
Chief Complaint
-
Shortness of breath
History of Present Illness
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
getting IV then changed to Lasix 20 mg daily and look like, patient did not sleep well was transferred to [facility] yesterday,
Denied any chest pain or fever or chill no cough or congestion, no vision change, lethargic and earlier was sleepy and was not arousable easily.
Currently awake, alert and oriented x 3, received a dose of IV Lasix 20, urinating well and feels much better.
Accompanied by the bedside,
Medical History
Past Medical History
Past Medical History: Reports Other
Additional Past Medical History:
Past medical history:
Diabetes
diabetic foot infection
Recent acute renal failure recovered
Diverticulosis
Hypertension
Diastolic congestive heart failure
A-fib and Eliquis
Peripheral vascular disease status post, status post angioplasty of the left extremity
Surgical history:
Hypertension left 2 toes
Laminectomy
Bilateral knee arthroscopy
Pacemaker placement
Social history: lives with the , no smoking alcohol use.
Family history: positive for diabetes, hypertension and coronary artery disease
Past Surgical History: Reports Other
Social History
Unable to obtain full social history at this time due to: Other
Family History
Family History: Other
Allergies / Home Medications
Allergies reflects when Allergies were last updated in [facility].
Home Medications with original date entered in [facility]
Allergy/Medication List:
Allergies
Allergy/AdvReac Type Severity Reaction Status Date / Time
vancomycin Allergy Intermediate Rash Verified 03/14/25 14:18
amoxicillin (From Augmentin) Allergy Unknown Unknown Verified 03/13/25 19:43
clavulanic acid (From Allergy Unknown Unknown Verified 03/13/25 19:43
Augmentin)
Iodinated Contrast Media Allergy Unknown Verified 03/13/25 19:44
Home Medications
metformin 1,000 mg tablet 1,000 mg PO BID@0800,1700 Diabetes ##0 12/02/21
metoprolol succinate 25 mg tablet,extended release 24 hr 25 mg PO BID Blood Pressure 01/28/25
rivaroxaban 20 mg tablet (Xarelto) 20 mg PO QPM Blood clot prevention/tx 01/28/25
acetaminophen 325 mg tablet 975 mg (3 x 325 mg) PO TIDPRN PRN pain or fever #0 tabs 03/13/25
atorvastatin 10 mg tablet 10 mg PO QPM #0 tabs 03/13/25
escitalopram oxalate 5 mg tablet 5 mg PO HS #0 tabs 03/13/25
nifedipine 30 mg tablet,extended release 30 mg PO QPM #30 tabs 03/13/25
pantoprazole 40 mg tablet,delayed release See Rx Instructions .Route .COMPLEX #60 tabs 03/13/25
sodium chloride 0.65 % nasal spray aerosol (Saline Nasal) 2 sprays intranasal QIDPRN PRN dry nose/congestion #0 mL 03/13/25
sucralfate 100 mg/mL oral suspension See Rx Instructions .Route .COMPLEX #500 mL 03/13/25
Lactobac no.2-Bifidobac no.1-S. thermo 112.5 billion cell capsule (Visbiome) 1 cap PO DAILY 03/14/25
bisacodyl 10 mg rectal suppository (Dulcolax (bisacodyl)) 10 mg OR DAILYPRN PRN if no bm aftr oral tablet 03/14/25
bisacodyl 5 mg tablet,delayed release (Dulcolax (bisacodyl)) 10 mg PO DAILYPRN PRN constipation 03/14/25
collagenase clostridium histo. 250 unit/gram topical ointment (Santyl) 1 applic topical DAILY slough area of left foot 03/14/25
insulin aspart U-100 100 unit/mL (3 mL) subcutaneous pen (Novolog FlexPen U-100 Insulin aspart) 5 sliding scale dose SC AC 03/14/25
insulin glargine 100 unit/mL (3 mL) subcutaneous pen (Lantus Solostar U-100 Insulin) 12 unit SC HS 03/14/25
miconazole nitrate 2 % topical powder (Miconazorb AF) 1 applic topical BID groin/abd folds 03/14/25
psyllium 1 packet PO BIDPRN PRN Constipation 03/14/25
therapeutic multivitamin 1 tab PO DAILY 03/14/25
Review of Systems
-
A 12 point ROS was completed and negative except as noted: Yes
Physical Exam
Vital Signs
Vital Signs
Pulse Resp BP Pulse Ox
69 13 125/62 97
03/14/25 19:00 03/14/25 19:00 03/14/25 19:00 03/14/25 19:00
Physical exam:
General: Awake, alert and oriented x3, not in distress and holds appropriate conversation.
HEENT: On nasal cannula, no active discharge, ecchymosis or bruising, moist lips, tongue and mucous membrane.
Eyes: No discharge or red conjunctiva, no nystagmus, pupils are reactive and equal
Neck:Supple, no JVD no bruit no goiter.
Respiratory: Normal AP contour and diameter, normal chest wall movement, normal respiratory effort, no respiratory distress,
Lungs: Good air entry bilaterally, no wheezing or rhonchi, bibasilar crackles
Heart: S1, S2 regular, normal rate, no added sound. Pacemaker in the left upper chest to lower extremities
Gastrointestinal: Positive bowel sounds, soft, nontender, no guarding or rigidity or organomegaly
Musculoskeletal: Wound VAC on the left foot laterally, no chest wall abnormality or tenderness. All joints and extremities have good range of motion, no muscle tenderness or any joint swelling or tenderness.
Extremities: Lower extremity pitting edema pitting edema, good peripheral pulses detected right stronger than the left, and, good range of motion
Skin: Warm and dry, no ulceration, normal color.
Neurological: Awake, alert and oriented x3, cranial nerve II-XII grossly intact, speech clear and comprehensive, good muscle tone, normal sensory and motor function
Psychiatric: Normal mood, normal thought and judgment, normal affect,
Physical Exam
General: Other
Laboratory Results
-
03/14/25 17:10
03/14/25 17:10
Laboratory Results
Total Bilirubin 0.7 mg/dl (0.2-1.3) 03/14/25 17:10
AST 15 U/L (17-59) L 03/14/25 17:10
ALT < 10 U/L (0-50) 03/14/25 17:10
Alkaline Phosphatase 73 U/L (38-126) 03/14/25 17:10
Data Reviewed
-
Medical Tests (Nuc Med, Echo, EKG etc): Image Personally Visualized and interpreted, Report Reviewed by me, Discussed with Patient and Discussed with Family
Lab Data: Labs Reviewed by me, Discussed with Patient and Discussed with Family
Old Records: Reviewed
Impression/Plan
-
IMPRESSION:
79-year-old male who was in the hospital for 6-week for sepsis, CHF exacerbation, osteomyelitis of the left recently, discharged to [facility] yesterday and sent back for shortness of breath sec to diastolic congestive heart failure
Congestive heart failure exacerbation, likely diastolic with preserved ejection fraction
- IV Lasix 20 twice daily
- Daily weight and monitor consulted
-Cardiology and nephrology consulted but they will follow
- Echo February 24 of this year done and reviewed.
- Recheck labs
Osteomyelitis and diabetic foot infection:
Status post I&D left foot and proximal fifth ray amputation
Podiatry consult
Completed antibiotic
Wound care team consult for wound VAC
Mild protein caloric malnutrition
Patient has poor appetite General Hydration and confusion supplement.
Diabetes mellitus:
Continue insulin monitor blood sugar.
A-fib:
Continue rate limiting medication
Xarelto
Status post pacemaker
All discussed with the patient and the family in detail and expressed understanding of the question answered
CODE STATUS full code
DVT prophylaxis
[2025-03-14 21:58] LABS: Glucose - Point of Care 136 mg/dl (70-99)
[2025-03-14 22:09] VITALS: BP 137/60
[2025-03-14 22:23] VITALS: BMI 28.9
[2025-03-14] MEDS: LANTUS 0.12 UNITS SC (22:25)
[2025-03-14] MEDS: LEXAPRO 5 MG PO (22:25)
[2025-03-15 00:34] VITALS: BMI 28.9
[2025-03-15 03:20] VITALS: BP 115/79
[2025-03-15 06:00] VITALS: BMI 28.9
[2025-03-15 07:07] LABS: Hematocrit 25.3 % (39.0-52.0); Hemoglobin 8.0 g/dL (13.0-18.0); Mean Corp Hgb Conc. 31.6 g/dL (33.0-37.0); Mean Corpuscular Volume 91.3 fL (80.0-94.0); Platelet Count 266 10^3/uL (130-400); Red Cell Dist. Width 16.1 % (11.5-14.5)
[2025-03-15 07:36] LABS: Blood Urea Nitrogen 13 mg/dl (9-20); Calcium 8.7 mg/dl (8.4-10.2); Carbon Dioxide 30 mmol/L (22-30); Chloride 103 mmol/L (98-107); Estimated Creatinine Clearance 76 ml/min; Glucose 118 mg/dl (70-99); Magnesium 0.9 mg/dl (1.6-2.3); Potassium 4.0 mmol/L (3.5-5.1); Sodium 136 mmol/L (135-145); eGFR > 60.00
[2025-03-15 07:47] VITALS: BP 159/80
--- NOTE | 2025-03-15 07:56 | CON.CAR ---
Addendum entered and electronically signed by Ruchi Rico DO 03/15/25 16:03:
I saw and examined the patient.
The Drywall Hanger Helper's note was reviewed and I agree with the note.
Comment: Patient was seen and examined with daughter at bedside. Also discussed presentation and care plan with on the telephone. Patient came to the ER from [place] yesterday with an episode of unresponsiveness and was admitted with acute HF
and cardiology is now consulted. Patient was admitted to [facility] from 01/28/2025 until 03/13/2025 with a number of issues including acute HF, JESUS requiring transient hemodialysis, cholecystitis with cholecystostomy tube now in place, sepsis,
osteomyelitis with left partial fifth ray amputation and vascular surgery intervention and esophagitis. Patient was transferred to [place] [facility]hab on 03/13/2025 and nephrology have recommended ongoing Lasix therapy to help with edema and volume
management, but it looks like this was not continued. Patient says he had increased SOB and then he had an episode of decreased responsiveness prompting the ER visit. proBNP was 2830 which is less than his last check on 02/01/2025 when it was
greater than 27,000. Patient had [employer] PPM device check in the ER, but there is no mention of OptiVol data. Patient has known permanent A-fib which was confirmed on device check in the ER.
GEN: NAD. AAO x3
HEENT: EOMI, MMM
LUNGS: 5 L NC. Rales without wheeze
CV: Afib on tele. Irreg irreg, S1/S2, no murmur
ABD: soft, BS+, NT, ND
EXT: Trace B/L LE edema.
Plan:
Admitted with episode of unresponsiveness�workup per primary
Acute heart failure with preserved ejection fraction following prolonged hospitalization from January 28 to March 13, 2025 status post 1 day at outpatient rehab in [place]. Patient had a multitude of issues during this hospitalization including heart
failure, acute kidney injury requiring transient dialysis, cholecystitis status post cholecystostomy tube, sepsis, osteomyelitis, left partial fifth toe amputation and esophagitis
-proBNP on admission 2830
- Agree with nephrology who recommended IV Lasix with plan for outpatient oral Lasix
- No need to repeat echocardiogram
Original Note:
Consultation
Consultation Request
Date/Time Consultation Requested: 03/14/2025 at 2246
Date/Time Consultation Performed: 03/15/2025 at 0746
Requesting Provider: Dr. Archer
Performing Provider: Dr. Rico
Reason for Consultation: Acute HFpEF
Medical History
-
History of Present Illness:
Patient came to the ER from [place] yesterday with an episode of unresponsiveness and was admitted with acute HF and cardiology is now consulted. Patient was admitted to [facility] from 01/28/2025 until 03/13/2025 with a number of issues including acute HF,
JESUS requiring transient hemodialysis, cholecystitis with cholecystostomy tube now in place, sepsis, osteomyelitis with left partial fifth ray amputation and vascular surgery intervention and esophagitis. Patient was transferred to [place] [facility]hab on
03/13/2025 and nephrology have recommended ongoing Lasix therapy to help with edema and volume management, but it looks like this was not continued. Patient says he had increased SOB and then he had an episode of decreased responsiveness prompting
the ER visit. proBNP was 2830 which is less than his last check on 02/01/2025 when it was greater than 27,000. Patient had [employer] PPM device check in the ER, but there is no mention of OptiVol data. Patient has known permanent A-fib which was
confirmed on device check in the ER that was reviewed by me.
PM:
Recent admission for acute HF, osteomyelitis, cholecystitis 01/28/2025 until 03/13/2025
Chronic hypoxic respiratory failure
Chronic HFpEF
Recent JESUS requiring transient hemodialysis 01/28/2025 until 03/13/2025
PAD
s/p intravascular lithotripsy and balloon angioplasty LLE 03/04/2025
proximal left fifth ray amputation for osteomyelitis 03/06/2025
Esophagitis on EGD 01/28/2025
Cholecystostomy tube for cholecystitis 02/24/2025
Peripheral vascular disease status post left partial fifth ray amputation 02/03/2025
Diabetes mellitus type 2
Hypertension
Permanent atrial fibrillation
s/p Medtronic DC PPM for paroxysmal CHB 2021
Moderate nonobstructive CAD by cardiac cath 09/07/2021
Dyslipidemia
Obesity
Past Medical History
Past Medical History: Other (See HPI)
Past Surgical History: Orthopedic (Laminectomy, proximal left fifth ray amputation, intravascular lithotripsy and balloon angioplasty LLE 03/04/2025) and Other (See HPI)
Social History
Tobacco: Non-Smoker
Alcohol: None
Drug: None
Personal:
Living: With Family
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
Family History
Family History: CAD and Diabetes
Allergies / Home Medications
Allergy/AdvReac Type Severity Reaction Status Date / Time
vancomycin Allergy Intermediate Rash Verified 03/14/25 14:18
amoxicillin (From Augmentin) Allergy Unknown Unknown Verified 03/13/25 19:43
clavulanic acid (From Allergy Unknown Unknown Verified 03/13/25 19:43
Augmentin)
Iodinated Contrast Media Allergy Unknown Verified 03/13/25 19:44
�Medication �Instructions �Recorded �Confirmed �Type
metformin 1,000 mg tablet 1,000 mg PO BID@0800,1700 Diabetes 12/02/21 03/14/25 Rx
##0
metoprolol succinate 25 mg 25 mg PO BID Blood Pressure 01/28/25 03/14/25 History
tablet,extended release 24 hr
rivaroxaban 20 mg tablet (Xarelto) 20 mg PO QPM Blood clot 01/28/25 03/14/25 History
prevention/tx
acetaminophen 325 mg tablet 975 mg (3 x 325 mg) PO TIDPRN PRN 03/13/25 03/14/25 Rx
pain or fever #0 tabs
atorvastatin 10 mg tablet 10 mg PO QPM #0 tabs 03/13/25 03/14/25 Rx
escitalopram oxalate 5 mg tablet 5 mg PO HS #0 tabs 03/13/25 03/14/25 Rx
nifedipine 30 mg tablet,extended 30 mg PO QPM #30 tabs 03/13/25 03/14/25 Rx
release
pantoprazole 40 mg tablet,delayed See Rx Instructions .Route 03/13/25 03/14/25 Rx
release .COMPLEX #60 tabs
sodium chloride 0.65 % nasal spray 2 sprays intranasal QIDPRN PRN dry 03/13/25 03/14/25 Rx
aerosol (Saline Nasal) nose/congestion #0 mL
sucralfate 100 mg/mL oral See Rx Instructions .Route 03/13/25 03/14/25 Rx
suspension .COMPLEX #500 mL
Lactobac no.2-Bifidobac no.1-S. 1 cap PO DAILY 03/14/25 03/14/25 History
thermo 112.5 billion cell capsule
(Visbiome)
bisacodyl 10 mg rectal suppository 10 mg [place] DAILYPRN PRN if no bm 03/14/25 03/14/25 History
(Dulcolax (bisacodyl)) aftr oral tablet
bisacodyl 5 mg tablet,delayed 10 mg PO DAILYPRN PRN constipation 03/14/25 03/14/25 History
release (Dulcolax (bisacodyl))
collagenase clostridium histo. 250 1 applic topical DAILY slough area 03/14/25 03/14/25 History
unit/gram topical ointment (Santyl) of left foot
insulin aspart U-100 100 unit/mL 5 sliding scale dose SC AC 03/14/25 03/14/25 History
(3 mL) subcutaneous pen (Novolog
FlexPen U-100 Insulin aspart)
insulin glargine 100 unit/mL (3 12 unit SC HS 03/14/25 03/14/25 History
mL) subcutaneous pen (Lantus
Solostar U-100 Insulin)
miconazole nitrate 2 % topical 1 applic topical BID groin/abd 03/14/25 03/14/25 History
powder (Miconazorb AF) folds
psyllium 1 packet PO BIDPRN PRN Constipation 03/14/25 03/14/25 History
therapeutic multivitamin 1 tab PO DAILY 03/14/25 03/14/25 History
Review of Systems
-
History Source: Patient
All other systems: Negative unless noted
Physical Exam
Vital Signs
Temp Pulse Resp BP Pulse Ox
97.9 F 77 15 159/80 100
03/15/25 07:47 03/15/25 07:47 03/15/25 07:47 03/15/25 07:47 03/15/25 07:47
GEN: NAD. AAO x3
HEENT: EOMI, MMM
LUNGS: 5 L NC. Rales without wheeze
CV: Afib on tele. Irreg irreg, S1/S2, no murmur
ABD: soft, BS+, NT, ND
EXT: Trace B/L LE edema.
NEURO: Gross non-focal
SKIN: Warm, pink, dry. No rash.
Lab Results
03/15/25 06:53
03/15/25 06:53
Pnl-S-Mbdzxkybwom Pept 2830 pg/ml 03/14/25 18:01
Impression / Plan
-
PCP: Dr. Roman Macedo
[employer]: Dr. Munoz
Impression:
Admitted with decreased responsiveness, acute hypoxic respiratory failure and acute HFpEF 03/14/2025
Recent admission for acute HF, osteomyelitis, cholecystitis 01/28/2025 until 03/13/2025
Acute on chronic hypoxic respiratory failure
Acute on chronic HFpEF
Recent JESUS requiring transient hemodialysis 01/28/2025 until 03/13/2025
PAD
s/p intravascular lithotripsy and balloon angioplasty LLE 03/04/2025
proximal left fifth ray amputation for osteomyelitis 03/06/2025
Esophagitis on EGD 01/28/2025
Cholecystostomy tube for cholecystitis 02/24/2025
Peripheral vascular disease status post left partial fifth ray amputation 02/03/2025
Diabetes mellitus type 2
Hypertension
Permanent atrial fibrillation
s/p Medtronic DC PPM for paroxysmal CHB 2021
Moderate nonobstructive CAD by cardiac cath 09/07/2021
Dyslipidemia
Obesity
Hypomagnesemia
Echo 08/2021: EF 55-60, mild concentric LVH, small pericardial effusion
Echo 10/2024: EF 65%, mild MS, mild with gradient 10 mmHg, PASP 30 mmHg
Echo 02/02/2025: EF 60 to 65%, stage II diastolic dysfunction, normal RV size and function
Plan:
-Patient came to the ER from [place] yesterday with an episode of unresponsiveness and was admitted with acute HF and cardiology is now consulted. Patient was admitted to [facility] from 01/28/2025 until 03/13/2025 with a number of issues including acute HF,
JESUS requiring transient hemodialysis, cholecystitis with cholecystostomy tube now in place, sepsis, osteomyelitis with left partial fifth ray amputation and vascular surgery intervention and esophagitis. Patient was transferred to [place] [facility] on
03/13/2025 and nephrology have recommended ongoing Lasix therapy to help with edema and volume management, but it looks like this was not continued. Patient says he had increased SOB and then he had an episode of decreased responsiveness prompting
the ER visit. proBNP was 2830 which is less than his last check on 02/01/2025 when it was greater than 27,000. Patient had Medtronic PPM device check in the ER, but there is no mention of OptiVol data. Patient has known permanent A-fib which was
confirmed on device check in the ER that was reviewed by me.
-Telemetry reviewed by me is A-fib with controlled ventricular response. Check ECG given admission for acute HF, orders placed by me
-No need to repeat echo at this time, EF was preserved at 60 to 65% with stage II diastolic dysfunction on 02/02/2025
-Patient was not discharged home also on his usual dose of Lasix and returns now with acute HF. Patient reports increased urine output following Lasix 20 mg IV x 1 in the ER last night. Agree with Lasix 20 mg IV BID
-There was concern the patient recently had JESUS and was on transient dialysis, labs remained stable as reviewed by me on 03/15/2025 and JESUS was in the setting of sepsis, CTA and peripheral angiography and angioplasty.
-Labs reviewed by me on 03/15/2025 and magnesium is down to 0.9. Recheck magnesium level now and then heading magnesium rider 4 mg IV over the next 4 hours, ordered by me. Will hold off on Lasix dose this morning until after the magnesium rider is
hanging
-Patient remains on 6 L NC and requirements were only about 1 to 2 L prior to recent discharge. Will follow oxygen requirements with diuresis.
-Outpatient dose of Toprol XL 25 mg BID has been continued
-Patient was not taking lisinopril just prior to this admission, but nephrology had commented in their last note on 03/13/2025 that if patient remained HTN we could add lisinopril 20 mg daily as he had previously tolerated this medication in the
past. Will follow BP and Cre with diuresis
-Patient is not chronically on SGLT2 inhibitor and will hold off with recent infection
-Patient with permanent A-fib and HR is controlled with his usual dose of Toprol XL 25 mg BID
-Outpatient dose of Xarelto 20 mg daily has been continued
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 Will arrange follow-up with Dr. Munoz in the office at patient's request
--- NOTE | 2025-03-15 08:35 | W.PN.HOSP.TC ---
Today's Communication/Plan
-
see bold
Assessment / Plan
Assessment / Plan
Acute on chronic heart failure with preserved ejection fraction
Acute hypoxic respiratory failure
- Dr. Munoz is his tile finisher
- Currently requiring 3 L of oxygen, wean as tolerated
- Cardiology following, continue Lasix 20 mg IV twice daily
- Trend creatinine, trend daily weights
Severe hypomagnesemia
- Replete by IV 4 g, recheck tomorrow
Permanent atrial fibrillation
-Continue Toprol XL and Xarelto
Left fifth metatarsal abscess, acute osteomyelitis with septic shock. Sepsis and shock resolved.
Chronic left lower extremity weakness due to back injury during procedure 2019
-03/06 bone margins are clean, completed course of IV daptomycin
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 Path report from 02/04 shows focal acute osteomyelitis
-Status post left partial fifth ray amputation debridement, and wound VAC placement 03/06
-Patient declined biologic grafting, follow-up with podiatry in the office
PAD
-Status post lower extremity angiogram with intravascular lithotripsy to left posterior tibial artery occlusion, left popliteal artery and tibioperoneal trunk, balloon angioplasty of left posterior tibial artery and left tibioperoneal trunk on 03/04.
Follow-up with vascular surgery in the office
Acute calculous cholecystitis
-Status post percutaneous cholecystostomy tube 02/24 with IR, cx neg, completed course of antibiotics
-Needs outpatient follow-up with Dr. Bernabe Juarez
Odynophagia secondary to Severe Esophagitis found on EGD 02/13/25
Recent GI bleed
-GI performed EGD on 02/13/25: showed severe esophagitis
Path report shows acute ulcerative esophagitis, immunohistochemical stains negative for HSV 1 and 2, CMV. No fungal organisms identified.
-Continue PPI BID and Carafate
-Continue Protonix PO BID x 2 weeks then daily and carafate BID x10 days, then daily x 2 weeks then stop
LUE edema
LUE pain from needlesticks
- Doppler ultrasound negative for DVT, repeat US 02/27 also neg
- Ordered scheduled Tylenol 1000 mg Q8H prn
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
Labile hypertension
-Continue nifedipine
DM 2 with hyperglycemia
-Hemoglobin A1c 6.5. Dr. Pathak is his geographic information scientist
-Continue Lantus 12 units at bedtime, continue aspart 5 units with meals.
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
Obesity due to excess calories -affects all aspects of care
DVT Prophylaxis: Xarelto
Code Status: Full code
Dispo - [facility]
Updated on phone 03/15
Total time spent to see the patient on the floor, examine the patient, review data and lab results, discuss treatment plan with patient, nursing staff around 50 minutes.
Physical Exam
General: Appears less tired, no acute distress
HEENT: Normocephalic, Atraumatic, EOMI, MMM
Respiratory: Bibasilar crackles
Cardiac: Normal S1/S2, Regular Rate and Rhythm
GI: Soft, tender at the right upper quadrant, Nondistended, Normal Bowel Sounds
Biliary drain in place
Extremities: No Clubbing, Cyanosis
LUE edema noted
Mild bilateral lower extremity edema
Left foot dressed with wound VAC in place
Neuro: Nonfocal/Grossly Intact
Anticipated Discharge: > 48 hours
Subjective/Interval History
-
Date of Service: March 15, 2025
Patient continues to feel short of breath. He denies abdominal pain, denies left foot pain. No fever, no vomiting.
Objective Data
-
Labs:
Laboratory Results
03/15/25 03/15/25
06:53 08:03
WBC 10.2
Hgb 8.0 L
Hct 25.3 L
Plt Count 266
Sodium 136 Pending
Potassium 4.0 Pending
Chloride 103 Pending
Carbon Dioxide 30 Pending
BUN 13 Pending
Creatinine 0.8 Pending
Glucose 118 H Pending
Calcium 8.7 Pending
Vital Signs:
Vital Signs
Temp Pulse Resp BP Pulse Ox
97.9 F 77 15 159/80 100
03/15/25 07:47 03/15/25 07:47 03/15/25 07:47 03/15/25 07:47 03/15/25 07:47
I&O
03/14/25 03/15/25 03/16/25
06:59 06:59 06:59
Intake Total 120 / 120
Output Total 550 / 550
Balance -430 / -430
--- NOTE | 2025-03-15 08:52 | PTCARENOTE ---
Cardiology and attending notified about critical mag. IV mag PO mag ordered. urgent mag ordered at 8 am not drawn yet and IV mag here to hang. This nurse contacted Cards who asked me to wait till we get repeat mag level as they suspect lab error,
they asked me to wait to give the lasix until IV mag is hanging. will give rest of meds at this time
[2025-03-15 08:58] LABS: Glucose - Point of Care 160 mg/dl (70-99)
[2025-03-15] MEDS: PROTONIX 40 MG PO ×2 (08:59→20:57)
[2025-03-15] MEDS: CARAFATE SUSPENSION 1 GM PO ×2 (08:59→20:58)
[2025-03-15] MEDS: NOVOLOG FLEXPEN 5 UNITS SC ×3 (08:59→18:00)
[2025-03-15] MEDS: NOVOLOG FLEXPEN-MODERATE RESISTANCE 1 UNITS SC (08:59)
[2025-03-15] MEDS: TOPROL XL 25 MG PO (08:59)
[2025-03-15 09:59] LABS: Blood Urea Nitrogen 12 mg/dl (9-20); Calcium 8.4 mg/dl (8.4-10.2); Carbon Dioxide 29 mmol/L (22-30); Chloride 102 mmol/L (98-107); Estimated Creatinine Clearance 68 ml/min; Glucose 136 mg/dl (70-99); Magnesium 0.9 mg/dl (1.6-2.3); Potassium 4.3 mmol/L (3.5-5.1); Sodium 135 mmol/L (135-145); eGFR > 60.00
[2025-03-15] MEDS: MAGNESIUM SULFATE 100 IV (10:07)
[2025-03-15 10:39] LABS: Glycohemoglobin (HgbA1c) 6.5 % (4.0-5.6)
[2025-03-15 10:54] VITALS: BP 124/61
[2025-03-15 12:00] LABS: Glucose - Point of Care 125 mg/dl (70-99)
[2025-03-15] MEDS: LASIX 20 MG IV (12:37)
[2025-03-15] MEDS: NOVOLOG FLEXPEN-MODERATE RESISTANCE SC ×2 (12:37→17:59)
--- NOTE | 2025-03-15 13:16 | PTCARENOTE ---
PT's pulse ox pre turn was 96% on 2 L. I turned patient onto right side and his color changed and he became visibly dyspneic. Lungs dec clear, pulse ox at that time was 87% on 2 L, no coughing noted. I did note a +3 dependent edema to left hip
and left lower abdomen on side. I repositioned patient withelevated HOb up to 90 degress and upped oxygen to 3 L. Lasix was given late this am at cards request to ensure IV mag given first, and pt is on protein shakes,(he drank today) and
dietary to see patient. will notify incase this would affect tx or care
--- NOTE | 2025-03-15 14:48 | W.CON.NEPH ---
Consultation
-
Date/Time Consultation Requested: 03/15/2025 10 AM
Date/Time Consultation Performed: 03/15/2025 2 PM
Requesting Provider: Dr. Archer
Performing Provider: Dr. Pace
Reason for Consultation: Edema
Medical History
-
Chief Complaint: Left leg cellulitis
History of Present Illness:
79-year-old male with diabetes mellitus for 40yrs currently insulin-dependent, metformin with microvascular complications peripheral neuropathy, hypertension and takes hydrochlorothiazide, hydralazine, lisinopril, metoprolol, atrial fibrillation
rate controlled with a beta boy and anticoagulation with Xarelto, has permanent pacemaker for cardiac process in 2021, hyperlipidemia maintained on lovastatin, chronic left leg weakness due to back injury, history of spinal stimulator. He had
a prolonged hospital course. He ultimately went partial left fifth metatarsal amputation which was significant for osteomyelitis. He also had significant acute kidney injury requiring temporary dialysis though ultimately was taken off with
recovery. He then developed cholecystitis and a biliary drain was placed. He finally was able to undergo a lower extremity angiogram with intravascular lithotripsy. Subsequently, he went to [facility]. He was not there very long before return
because of worsening shortness of breath and hypoxemia. We are asked to assist with management of his volume status.
Past Medical History
DM 2
HTN
HLD
permanent A-fib on Xarelto
permanent pacemaker cardiac pauses 2021
chronic left leg weakness due to back injury during procedure 2019
spinal stimulator not active
Left fifth toe metatarsal amputation
Past Surgical History: Other (spinal stimulator not active Permanent pacemaker 2021 Bilateral knee arthroscopy Lumbar laminectomy Lumbar procedure unknown type XX 20 leaving patient with left leg weakness, numbness Trigger finger release bilateral
hands)
Social History
Tobacco: Non-Smoker
Alcohol: None
Drug: None
Personal:
Living: With Family
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
Family History
no CKD
Family History: Not Pertinent
Allergies / Home Medications
Allergy/AdvReac Type Severity Reaction Status Date / Time
vancomycin Allergy Intermediate Rash Verified 03/14/25 14:18
amoxicillin (From Augmentin) Allergy Unknown Unknown Verified 03/13/25 19:43
clavulanic acid (From Allergy Unknown Unknown Verified 03/13/25 19:43
Augmentin)
Iodinated Contrast Media Allergy Unknown Verified 03/13/25 19:44
�Medication �Instructions �Recorded �Confirmed �Type
metformin 1,000 mg tablet 1,000 mg PO BID@0800,1700 Diabetes 12/02/21 03/14/25 Rx
##0
metoprolol succinate 25 mg 25 mg PO BID Blood Pressure 01/28/25 03/14/25 History
tablet,extended release 24 hr
rivaroxaban 20 mg tablet (Xarelto) 20 mg PO QPM Blood clot 01/28/25 03/14/25 History
prevention/tx
acetaminophen 325 mg tablet 975 mg (3 x 325 mg) PO TIDPRN PRN 03/13/25 03/14/25 Rx
pain or fever #0 tabs
atorvastatin 10 mg tablet 10 mg PO QPM #0 tabs 03/13/25 03/14/25 Rx
escitalopram oxalate 5 mg tablet 5 mg PO HS #0 tabs 03/13/25 03/14/25 Rx
nifedipine 30 mg tablet,extended 30 mg PO QPM #30 tabs 03/13/25 03/14/25 Rx
release
pantoprazole 40 mg tablet,delayed See Rx Instructions .Route 03/13/25 03/14/25 Rx
release .COMPLEX #60 tabs
sodium chloride 0.65 % nasal spray 2 sprays intranasal QIDPRN PRN dry 03/13/25 03/14/25 Rx
aerosol (Saline Nasal) nose/congestion #0 mL
sucralfate 100 mg/mL oral See Rx Instructions .Route 03/13/25 03/14/25 Rx
suspension .COMPLEX #500 mL
Lactobac no.2-Bifidobac no.1-S. 1 cap PO DAILY Supplement 03/14/25 03/14/25 History
thermo 112.5 billion cell capsule
(Visbiome)
bisacodyl 10 mg rectal suppository 10 mg [place] DAILYPRN PRN if no bm 03/14/25 03/14/25 History
(Dulcolax (bisacodyl)) aftr oral tablet
bisacodyl 5 mg tablet,delayed 10 mg PO DAILYPRN PRN constipation 03/14/25 03/14/25 History
release (Dulcolax (bisacodyl))
collagenase clostridium histo. 250 1 applic topical DAILY slough area 03/14/25 03/14/25 History
unit/gram topical ointment (Santyl) of left foot
insulin aspart U-100 100 unit/mL 5 sliding scale dose SC AC Diabetes 03/14/25 03/14/25 History
(3 mL) subcutaneous pen (Novolog
FlexPen U-100 Insulin aspart)
insulin glargine 100 unit/mL (3 12 unit SC HS Diabetes 03/14/25 03/14/25 History
mL) subcutaneous pen (Lantus
Solostar U-100 Insulin)
miconazole nitrate 2 % topical 1 applic topical BID groin/abd 03/14/25 03/14/25 History
powder (Miconazorb AF) folds
psyllium 1 packet PO BIDPRN PRN Constipation 03/14/25 03/14/25 History
therapeutic multivitamin 1 tab PO DAILY Supplement 03/14/25 03/14/25 History
Review of Systems
-
Shortness of breath improving
Physical Exam
Vital Signs
Vital Signs
Temp Pulse Resp BP Pulse Ox
97.6 F 85 17 124/61 92
03/15/25 10:54 03/15/25 10:54 03/15/25 10:54 03/15/25 10:54 03/15/25 13:25
Lab Results
WBC 10.2 10^3/uL (4.8-10.8) 03/15/25 06:53
RBC 2.77 10^6/uL (4.70-6.10) L 03/15/25 06:53
Hgb 8.0 g/dL (13.0-18.0) L 03/15/25 06:53
Hct 25.3 % (39.0-52.0) L 03/15/25 06:53
Plt Count 266 10^3/uL (130-400) 03/15/25 06:53
Sodium 135 mmol/L (135-145) 03/15/25 09:16
Potassium 4.3 mmol/L (3.5-5.1) 03/15/25 09:16
Chloride 102 mmol/L (98-107) 03/15/25 09:16
Carbon Dioxide 29 mmol/L (22-30) 03/15/25 09:16
BUN 12 mg/dl (9-20) 03/15/25 09:16
Creatinine 0.9 mg/dL (0.7-1.3) 03/15/25 09:16
eGFR > 60.00 03/15/25 09:16
Glucose 136 mg/dl (70-99) H 03/15/25 09:16
Calcium 8.4 mg/dl (8.4-10.2) 03/15/25 09:16
Utq-V-Rvigpmzaucw Pept 2830 pg/ml 03/14/25 18:01
Albumin 3.1 g/dl (3.5-5.0) L 03/14/25 17:10
Laboratory Tests
03/14/25
08:12
Creatinine 0.9
Physical Exam
Patient is awake alert oriented and in no distress. Mood and affect were pleasant, insight and judgment were good. Pupils are equal round and reactive to light, extraocular movements are intact, sclera were anicteric. Hearing was normal, ears and
nose are intact. Oropharynx was clear. Neck was supple with trachea midline and no thyromegaly. Heart was regular rate and rhythm without rubs. Lower extremities without edema. Lungs were coarse to auscultation bilaterally and with normal
excursion. Abdomen was soft, nontender, with normal active bowel sounds, and no hepatosplenomegaly. Skin was without rash and with normal turgor.
Data Reviewed
-
Radiology: Image Personally Visualized and interpreted (Chest x-ray 03/14/2025 by my reading bilateral effusion, bilateral opacities likely edema)
Medical Tests (Nuc Med, Echo etc): Image Personally Visualized and interpreted (EKG 03/15/2025 by my reading atrial fibrillation left axis deviation right bundle branch block lateral T wave abnormality)
Labs: Labs Reviewed by me
Old Records: Reviewed
Assessment/Plan
-
IMP:
Shortness of breath
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
Peripheral artery disease
DM 2
Essential hypertension
Constipation
A-fib�permanent
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
HLD
Obesity due to excess calories
cholecystitis status post cholecystotomy tube
Plan:
Continue diuresis at this time with Lasix 40mg IV twice daily.
Eventually plan for conversion to 40 mg daily for possible maintenance dose
Follow BMP
[2025-03-15 15:51] VITALS: BP 117/58
[2025-03-15 15:55] VITALS: BMI 28.9
[2025-03-15 17:17] LABS: Glucose - Point of Care 145 mg/dl (70-99)
[2025-03-15] MEDS: XARELTO 20 MG PO (17:59)
[2025-03-15] MEDS: LIPITOR 10 MG PO (18:00)
[2025-03-15] MEDS: PROCARDIA XL (EXTENDED RELEASE) 30 MG PO (18:00)
[2025-03-15 19:30] VITALS: BP 114/51
[2025-03-15] MEDS: LASIX 40 MG IV (20:57)
[2025-03-15] MEDS: TOPROL XL PO (20:58)
[2025-03-15 21:40] LABS: Glucose - Point of Care 215 mg/dl (70-99)
[2025-03-15] MEDS: LEXAPRO 5 MG PO (22:30)
[2025-03-15] MEDS: LANTUS 0.12 UNITS SC (22:30)
[2025-03-15 23:30] VITALS: BP 112/58
[2025-03-16] VITALS (8 sets, daily range): BP systolic 100–135; BP diastolic 50–67; PULSE 83; O2SAT 98; BMI 28.4
[2025-03-16 07:39] LABS: Glucose - Point of Care 144 mg/dl (70-99)
[2025-03-16 08:22] LABS: Blood Urea Nitrogen 13 mg/dl (9-20); Calcium 8.3 mg/dl (8.4-10.2); Carbon Dioxide 32 mmol/L (22-30); Chloride 99 mmol/L (98-107); Estimated Creatinine Clearance 61 ml/min; Glucose 149 mg/dl (70-99); Potassium 3.9 mmol/L (3.5-5.1); Sodium 134 mmol/L (135-145); eGFR > 60.00
[2025-03-16] MEDS: LASIX 40 MG IV (08:33)
[2025-03-16] MEDS: TOPROL XL 25 MG PO (08:33)
[2025-03-16] MEDS: CARAFATE SUSPENSION 1 GM PO ×2 (08:33→20:37)
[2025-03-16] MEDS: PROTONIX 40 MG PO ×2 (08:33→20:37)
[2025-03-16] MEDS: NOVOLOG FLEXPEN 5 UNITS SC ×3 (08:33→16:42)
[2025-03-16] MEDS: NOVOLOG FLEXPEN-MODERATE RESISTANCE SC (08:34)
[2025-03-16 08:41] LABS: Magnesium 1.3 mg/dl (1.6-2.3)
--- NOTE | 2025-03-16 09:03 | W.PN.HOSP.TC ---
Today's Communication/Plan
-
Increase Lasix to 60 mg IV twice daily
Assessment / Plan
Assessment / Plan
Acute on chronic heart failure with preserved ejection fraction
Acute hypoxic respiratory failure
- Dr. Munoz is his legal internship
- Currently requiring 3 L of oxygen, down from 5/6 L, wean as tolerated
- Cardiology/nephrology following, increase Lasix 60 mg IV twice daily
- Patient will need to be on oral Lasix upon discharge
- Trend creatinine, trend daily weights
- Bed at [facility] being held for through Monday
Severe hypomagnesemia
- Replete by IV 4 g, recheck tomorrow
Permanent atrial fibrillation
-Continue Toprol XL and Xarelto
Left fifth metatarsal abscess, acute osteomyelitis with septic shock. Sepsis and shock resolved.
Chronic left lower extremity weakness due to back injury during procedure 2019
-03/06 bone margins are clean, completed course of IV daptomycin
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 Path report from 02/04 shows focal acute osteomyelitis
-Status post left partial fifth ray amputation debridement, and wound VAC placement 03/06
-Patient declined biologic grafting, consult podiatry
PAD
-Status post lower extremity angiogram with intravascular lithotripsy to left posterior tibial artery occlusion, left popliteal artery and tibioperoneal trunk, balloon angioplasty of left posterior tibial artery and left tibioperoneal trunk on 03/04.
Follow-up with vascular surgery in the office
Acute calculous cholecystitis
-Status post percutaneous cholecystostomy tube 02/24 with IR, cx neg, completed course of antibiotics
-Needs outpatient follow-up with Dr. Bernabe Juarez
Odynophagia secondary to Severe Esophagitis found on EGD 02/13/25
Recent GI bleed
-GI performed EGD on 02/13/25: showed severe esophagitis
Path report shows acute ulcerative esophagitis, immunohistochemical stains negative for HSV 1 and 2, CMV. No fungal organisms identified.
-Continue PPI BID and Carafate
-Continue Protonix PO BID x 2 weeks then daily and carafate BID x10 days, then daily x 2 weeks then stop
LUE edema
LUE pain from needlesticks
- Doppler ultrasound negative for DVT, repeat US 02/27 also neg
- Ordered scheduled Tylenol 1000 mg Q8H prn
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
Labile hypertension
-Continue nifedipine
DM 2 with hyperglycemia
-Hemoglobin A1c 6.5. Dr. Pathak is his senior information security analyst
-Continue Lantus 12 units at bedtime, continue aspart 5 units with meals.
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
Obesity due to excess calories -affects all aspects of care
DVT Prophylaxis: Xarelto
Code Status: Full code
Dispo - [facility]
Updated on phone 03/16
Total time spent to see the patient on the floor, examine the patient, review data and lab results, discuss treatment plan with patient, nursing staff around 51 minutes.
Physical Exam
General: No acute distress
HEENT: Normocephalic, Atraumatic, EOMI, MMM
Respiratory: Bibasilar crackles
Cardiac: Normal S1/S2, Regular Rate and Rhythm
GI: Soft, tender at the right upper quadrant, Nondistended, Normal Bowel Sounds
Biliary drain in place
Extremities: No Clubbing, Cyanosis
LUE edema noted
Mild bilateral lower extremity edema
Left foot dressed with wound VAC in place
Neuro: Nonfocal/Grossly Intact
Anticipated Discharge: 24 - 48 hours
Subjective/Interval History
-
Date of Service: March 16, 2025
Patient reports continued shortness of breath, unchanged from prior. Denies abdominal pain, denies left foot pain. No fever, no vomiting.
Objective Data
-
Labs:
Laboratory Results
03/16/25
07:28
Sodium 134 L
Potassium 3.9
Chloride 99
Carbon Dioxide 32 H
BUN 13
Creatinine 1.0
Glucose 149 H
Calcium 8.3 L
Vital Signs:
Vital Signs
Temp Pulse Resp BP Pulse Ox
98.4 F 77 14 135/67 94
03/16/25 07:00 03/16/25 07:00 03/16/25 07:00 03/16/25 07:00 03/16/25 07:00
I&O
03/15/25 03/16/25 03/17/25
06:59 06:59 06:59
Intake Total 120 / 120
Output Total 550 / 550 1794 / 1794
Balance -430 / -430 -1795 / -179
[2025-03-16] MEDS: MAGNESIUM SULFATE 100 IV (10:07)
--- NOTE | 2025-03-16 10:35 | W.PN.NEPH.PH ---
Today's Communication / Plan
-
lasix
Assessment/Plan
-
IMP:
Shortness of breath
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
Peripheral artery disease
DM 2
Essential hypertension
Constipation
A-fib�permanent
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
HLD
Obesity due to excess calories
cholecystitis status post cholecystotomy tube
Plan:
Continue diuresis at this time with Lasix 40mg IV twice daily.
Eventually plan for conversion to 80 mg daily for possible maintenance dose
Follow BMP
d/w daughter
-
-
Date of Service: March 16, 2025
CC / HPI / ROS
-
Chief Complaint:
edema
History of Present Illness:
diuresing well with lasix
Na low 134
Cr stable 1
Mag improving 1.3
Review of Systems:
no CP/SOB
?occassional chest pain with deep breaths, not consistent
Labs
-
Labs:
WBC 10.2 10^3/uL (4.8-10.8) 03/15/25 06:53
RBC 2.77 10^6/uL (4.70-6.10) L 03/15/25 06:53
Hgb 8.0 g/dL (13.0-18.0) L 03/15/25 06:53
Hct 25.3 % (39.0-52.0) L 03/15/25 06:53
Plt Count 266 10^3/uL (130-400) 03/15/25 06:53
Sodium 134 mmol/L (135-145) L 03/16/25 07:28
Potassium 3.9 mmol/L (3.5-5.1) 03/16/25 07:28
Chloride 99 mmol/L (98-107) 03/16/25 07:28
Carbon Dioxide 32 mmol/L (22-30) H 03/16/25 07:28
BUN 13 mg/dl (9-20) 03/16/25 07:28
Creatinine 1.0 mg/dL (0.7-1.3) 03/16/25 07:28
eGFR > 60.00 03/16/25 07:28
Glucose 149 mg/dl (70-99) H 03/16/25 07:28
Calcium 8.3 mg/dl (8.4-10.2) L 03/16/25 07:28
Mbi-S-Wubrvsklcgb Pept 2830 pg/ml 03/14/25 18:01
Albumin 3.1 g/dl (3.5-5.0) L 03/14/25 17:10
Physical Exam
-
Vital Signs:
Vital Signs
Temp Pulse Resp BP Pulse Ox
98.4 F 77 14 135/67 94
03/16/25 07:00 03/16/25 07:00 03/16/25 07:00 03/16/25 07:00 03/16/25 07:00
Cardiovascular:: Regular rate and rhythm
Respiratory:: Bilateral: Coarse
Lung Excursion:: Normal
Abdomen:: Nontender and Soft
Bowel Sounds:: Normal
Extremity Edema:: +2: Bilateral:
[2025-03-16 11:46] LABS: Glucose - Point of Care 201 mg/dl (70-99)
--- NOTE | 2025-03-16 11:57 | W.PN.UPDATE ---
Update Note
Progress Note Update
Patient was seen by Dr. Oro about a week ago and started on Lexapro 5 mg daily for depression and anxiety. He has no previous psychiatric history and he feels the depression is related to him being in hospital so long and having numerous medical
problems and wondering if and when he will be better. His daughter who was visiting was questioning as to whether his regurgitating is related to anxiety which he denies. He denies hopelessness or suicidal thoughts. She also told me he often does
not follow some medical orders such as getting PT but after a while would agree; his initial oppositionality is apparently related to his personality.
We tabled about mindfulness and other strategies such as crossword puzzles to try and make is extended stay in hospital more bearable. I would not increase the Lexapro as of yet as the depression is related to his medical condition. PT ought to try
to persuade him to cooperate if her refuses but likely they try that anyway.
We will F/U through the department.
[2025-03-16] MEDS: NOVOLOG FLEXPEN-MODERATE RESISTANCE 3 UNITS SC (13:33)
--- NOTE | 2025-03-16 13:58 | CM ---
Patient seen at bedside
IA completed
Patient presents from [facility] - referral placed in [facility] to return per PT rec
recent hospitalization 01/28 to 03/13 with a number of issues including acute HF, JESUS requiring transient hemodialysis, cholecystitis with cholecystostomy tube now in place, sepsis, osteomyelitis with left partial fifth ray amputation and vascular
surgery intervention and esophagitis
patient has a wound vac
Lives with in 2 story home, 2 BOBBY, flight to bedroom/bathroom
PLOF: Independent prior to hospitalization with cane
DME: [employer], shower chair
PCP: Roman Macedo
Pharmacy: [facility] [address] [place] [address]
PLAN: return to [facility] when stable, pending bed availability
[2025-03-16 16:24] LABS: Glucose - Point of Care 185 mg/dl (70-99)
[2025-03-16] MEDS: NOVOLOG FLEXPEN-MODERATE RESISTANCE 1 UNITS SC (16:42)
[2025-03-16] MEDS: PROCARDIA XL (EXTENDED RELEASE) 30 MG PO (16:43)
[2025-03-16] MEDS: XARELTO 20 MG PO (16:43)
[2025-03-16] MEDS: LIPITOR 10 MG PO (16:43)
[2025-03-16] MEDS: TOPROL XL PO (20:41)
--- NOTE | 2025-03-16 20:50 | PTCARENOTE ---
Pt BP 101/48, HR 59. Discussed with PULLER MACHINE Jenna Huynh. Sched metoprolol held at this time. Sched lasix given. Will continue to monitor. Pt also asking for bowel regimen. PULLER MACHINE order in for colace and senna.
[2025-03-16] MEDS: LASIX 60 MG IV (20:59)
[2025-03-16] MEDS: LEXAPRO 5 MG PO (21:47)
[2025-03-16] MEDS: SENOKOT 8.6 MG PO (21:47)
[2025-03-16] MEDS: LANTUS 0.12 UNITS SC (21:47)
[2025-03-16] MEDS: COLACE 100 MG PO (21:47)
[2025-03-16 21:53] LABS: Glucose - Point of Care 138 mg/dl (70-99)
[2025-03-17 03:16] VITALS: BP 116/54
[2025-03-17 05:48] VITALS: BMI 28.3
[2025-03-17 07:00] VITALS: BP 127/60
[2025-03-17 07:56] LABS: Glucose - Point of Care 137 mg/dl (70-99)
[2025-03-17] MEDS: NOVOLOG FLEXPEN-MODERATE RESISTANCE SC ×2 (08:15→12:40)
[2025-03-17] MEDS: COLACE 100 MG PO ×2 (08:51→20:36)
[2025-03-17] MEDS: LASIX 60 MG IV ×2 (08:51→20:43)
[2025-03-17] MEDS: CARAFATE SUSPENSION 1 GM PO ×2 (08:51→20:35)
[2025-03-17] MEDS: PROTONIX 40 MG PO ×2 (08:51→20:35)
[2025-03-17] MEDS: NOVOLOG FLEXPEN 5 UNITS SC ×2 (08:52→18:36)
[2025-03-17] MEDS: TOPROL XL 25 MG PO ×2 (08:53→20:43)
--- NOTE | 2025-03-17 09:07 | WOUNDNOTE ---
[facility] RN note: Patient admitted with hypoxia, pulmonary edema. Patient admitted from [facility] after recent discharge.
See H&P for complete history.
PMH: sepsis, diabetic foot ulcer, L 5th toe ray amp by Dr. Guzman, acute renal failure (resolved), HTN, CHF, a fib (Eliquis), PAD, angioplasty LLE, laminectomy, pacer, IR drain for cholecystitis.
Wound Location and type/assessment: Patient admitted with: R lateral forefoot surgical wound to fascia, pink with yellow tissue. Sacral crease dull red stage 1 pressure injury vs resolving MASD/yeast rash. Scabbed rash R lateral ankle and L medial
upper posterior heel. Mild fungal dry red rash L forefoot.
Appetite: improved.
Pressure redistribution devices in place: Centrella Max air bed. TruVNeven Vision Lite fiber filled heel relief boots. Darco ortho wedge shoe R foot. Patient needs help to fully turn on his side. He can lift his heels off bed himself.
Plan: Assisted Dr. Guzman with vac dressing change L foot. Heels off bed with fiber filled boots. Silicone border foam applied to sacrum. Instructed patient pressure injury prevention measures. Confirmed skin/wound care orders with repairer controller tester.
Discussed with ALLEN Hastings.
Care plan to be updated and will follow as needed.
Note to case management of equipment requested for discharge: Vac at rehab/[facility].
[2025-03-17 09:25] LABS: Hematocrit 24.9 % (39.0-52.0); Hemoglobin 8.0 g/dL (13.0-18.0); Mean Corp Hgb Conc. 32.1 g/dL (33.0-37.0); Mean Corpuscular Volume 90.5 fL (80.0-94.0); Platelet Count 310 10^3/uL (130-400); Red Cell Dist. Width 16.0 % (11.5-14.5)
--- NOTE | 2025-03-17 09:55 | W.PN.POD ---
Today's Communication
Today's Communication
Left foot wound
Assessment / Plan
-
Left foot wound (Bermudez Grade 2) - S/P Partial 5th ray amputation
Type 2 Diabetes Mellitus
PAD s/p revascularization
Right Foot Tinea Pedis
The left foot wound was debrided with suture scissors and forceps to the level of fascia - excisional debridment of slough performed. wound VAC is changed at bedside and reapplied today. I recommend on the next change we begin using santyl
ointment under the adaptec and black foam. We will continue a MWF schedule. Recommend Ketoconazole for the right foot bid. Offload heel on offloading boots in bed.
Subjective
Chief Complaint
Left foot wound - S/P Partial 5th ray amputation
Subjective
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 Gonzalez followed by partial 5th ray amputation with me on his previous hospital admission. He has been undergoing wound vac therapy MWF and was discharged to [facility] this past
. He was recently readmitted for shortness of breath/CHF. Patient seen at bedside - offers no complaints of Left foot pain
Past Medical History:
Diabetes
diabetic foot infection
Recent acute renal failure recovered
Diverticulosis
Hypertension
Diastolic congestive heart failure
A-fib and Eliquis
Peripheral vascular disease status post, status post angioplasty of the left extremity
Surgical history:
Hypertension left 2 toes
Laminectomy
Bilateral knee arthroscopy
Pacemaker placement
Social history:
lives with the , no smoking alcohol use.
Family history:
positive for diabetes, hypertension and coronary artery disease
Allergies
Allergy/AdvReac Type Severity Reaction Status Date / Time
vancomycin Allergy Intermediate Rash Verified 03/14/25 14:18
amoxicillin (From Augmentin) Allergy Unknown Unknown Verified 03/13/25 19:43
clavulanic acid (From Allergy Unknown Unknown Verified 03/13/25 19:43
Augmentin)
Iodinated Contrast Media Allergy Unknown Verified 03/13/25 19:44
Home Medications
metformin 1,000 mg tablet 1,000 mg PO BID@0800,1700 Diabetes ##0 12/02/21
metoprolol succinate 25 mg tablet,extended release 24 hr 25 mg PO BID Blood Pressure 01/28/25
rivaroxaban 20 mg tablet (Xarelto) 20 mg PO QPM Blood clot prevention/tx 01/28/25
acetaminophen 325 mg tablet 975 mg (3 x 325 mg) PO TIDPRN PRN pain or fever #0 tabs 03/13/25
atorvastatin 10 mg tablet 10 mg PO QPM #0 tabs 03/13/25
escitalopram oxalate 5 mg tablet 5 mg PO HS #0 tabs 03/13/25
nifedipine 30 mg tablet,extended release 30 mg PO QPM #30 tabs 03/13/25
pantoprazole 40 mg tablet,delayed release See Rx Instructions .Route .COMPLEX #60 tabs 03/13/25
sodium chloride 0.65 % nasal spray aerosol (Saline Nasal) 2 sprays intranasal QIDPRN PRN dry nose/congestion #0 mL 03/13/25
sucralfate 100 mg/mL oral suspension See Rx Instructions .Route .COMPLEX #500 mL 03/13/25
Lactobac no.2-Bifidobac no.1-S. thermo 112.5 billion cell capsule (Visbiome) 1 cap PO DAILY 03/14/25
bisacodyl 10 mg rectal suppository (Dulcolax (bisacodyl)) 10 mg UT DAILYPRN PRN if no bm aftr oral tablet 03/14/25
bisacodyl 5 mg tablet,delayed release (Dulcolax (bisacodyl)) 10 mg PO DAILYPRN PRN constipation 03/14/25
collagenase clostridium histo. 250 unit/gram topical ointment (Santyl) 1 applic topical DAILY slough area of left foot 03/14/25
insulin aspart U-100 100 unit/mL (3 mL) subcutaneous pen (Novolog FlexPen U-100 Insulin aspart) 5 sliding scale dose SC AC 03/14/25
insulin glargine 100 unit/mL (3 mL) subcutaneous pen (Lantus Solostar U-100 Insulin) 12 unit SC HS 03/14/25
miconazole nitrate 2 % topical powder (Miconazorb AF) 1 applic topical BID groin/abd folds 03/14/25
psyllium 1 packet PO BIDPRN PRN Constipation 03/14/25
therapeutic multivitamin 1 tab PO DAILY 03/14/25
Objective
Temp Pulse Resp BP Pulse Ox
99.2 F 74 18 127/60 96
03/17/25 07:00 03/17/25 08:53 03/17/25 07:00 03/17/25 08:53 03/17/25 07:00
03/17/25 08:32
Vital Signs and Lab results were reviewed.
Physical Exam
Physical Exam
Physical Exam
Left foot with bandages in place, no strikethrough. VAC running at 125 mmHg. Upon removal of the VAC the wound appears viable. Minimal granulation tissue around the edges. wound is approximately 40% granular beginning from proximal lateral margin
and at the distal most aspect of the wound. There is exposed fascia centrally. No signs of infection or ischemia today, viable edges. Right foot with some dry scaling skin in moccasin formation.
--- NOTE | 2025-03-17 09:57 | W.PN.ID1 ---
Addendum entered and electronically signed by Angella Maguire MD 03/17/25 16:16:
I saw and evaluated the patient. I reviewed the resident�s note and agree with findings and plan as documented in the resident�s note.
# Acute hypoxemic insufficiency on 4L 02
# Pulmonary edema; pt missed 2 doses of furosemide while at rehab.
- Symptomatically responding to furosemide diuresis
- To consider daptomycin-induced eosinophilia pneumonitis if O2 requirement increases despite diuresis.
Of note, pt recently completed 39 days of Daptomycin for foot osteo, last dose 03/12
Original Note:
Date of Service
Date of Service: March 17, 2025
AFVSS. On 4 L supplemental O2 via nasal cannula
Today's Communication
check procalc
no abx indication at this time
Assessment / Plan
# Pulmonary Edema
# Leukocytosis - resolved
#sxs begins after he missed a lasix dose at [facility]
- Denies cough
- suspect pulmonary edema
- would not start antibiotics at this time; if patient develops fevers, increasing productive cough, malaise etc might consider aspiration pneumonia and start ceftriaxone however he is a reliable historian and does not have these symptoms at this
time.
� will check procalc.
differentials does include daptomycin induced eiosinophilic pneumonitis
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
. 02/03/25 s/p left foot partial 5th ray amputation
OR cx's : MRSA
02/03/25 Bone [address] proximal margin + osteomyelitis.
. 03/06 s/p Partial 5th ray amputation with wound debridement to the level of bone.
Proximal bone path: clean margin
. s/p Daptomycin (39 day course)
# PAD, left 5th ischemic toe
. 03/04 s/p LLE endo-vascularization
# s/p Acute cholecystitis
- 02/24 s/p perc giacomo, cx negative
-Completed cefazolin 1g IVq8 and metronidazole 500mg IV q12 through 03/08/25.
Chief Complaint
-: Other (Hypoxia)
Subjective / Review of Systems
States his BP was low last night after he received increased dose of lasix
Review of Systems: No Fever, No Chills, No Headache, No Cough, No Chest Pain, No Palpitations, No Nausea, No Vomiting, No Dysuria and No Skin Rash
Vital Signs / Physical Exam
Vital Signs
Vital Signs
Temp Pulse Resp BP Pulse Ox
99.2 F 74 18 127/60 96
03/17/25 07:00 03/17/25 08:53 03/17/25 07:00 03/17/25 08:53 03/17/25 07:00
Physical Exam
Constitutional: No Acute Distress and Comfortable
Cardiovascular: Regular Rate and S1/S2
Pulmonary: Clear, Symmetric and Non Labored
Gastrointestinal: Soft, Non Tender and Other (Perc giacomo)
Genito-Urinary: Gonzalez
Skin: Warm
Neurological: Awake, Alert and Oriented
Objective Data
Lab Data
Lab Results
03/17/25 08:32
Estimated Creat Clear 61 ml/min 03/16/25 07:28
Total Bilirubin 0.7 mg/dl (0.2-1.3) 03/14/25 17:10
AST 15 U/L (17-59) L 03/14/25 17:10
ALT < 10 U/L (0-50) 03/14/25 17:10
Alkaline Phosphatase 73 U/L (38-126) 03/14/25 17:10
Most recent labs reviewed.
Micro Results:
03/14/25 19:47 Urine Culture - Final
Urine No Significant Growth
CXR 03/14 : IMPRESSION:
1. Large ground-glass airspace opacities in the right upper lobe, right lower lobe, and lingula which appear new from 02/03/2025. Diagnostic possibilities are (1) acute alveolar cardiogenic pulmonary edema or (2) severe pneumonia (if there are
signs/symptoms of pulmonary infection).
2. New large left lower lobe airspace consolidation (either compressive atelectasis or pneumonia).
3. Small bilateral pleural effusions (left larger than right).
4. Left-sided cardiac pacemaker in place.
Head ct : No acute intracranial abnormality.
Chest X-Ray: Image Reviewed and Report Reviewed
[2025-03-17 10:04] LABS: Blood Urea Nitrogen 15 mg/dl (9-20); Calcium 8.5 mg/dl (8.4-10.2); Carbon Dioxide 31 mmol/L (22-30); Chloride 97 mmol/L (98-107); Estimated Creatinine Clearance 68 ml/min; Glucose 137 mg/dl (70-99); Magnesium 1.6 mg/dl (1.6-2.3); Potassium 3.7 mmol/L (3.5-5.1); Sodium 133 mmol/L (135-145); eGFR > 60.00
[2025-03-17 11:00] VITALS: BP 128/53
--- NOTE | 2025-03-17 12:20 | W.PN.NEPH.PH ---
Today's Communication / Plan
-
Continue IV diuretics
Assessment/Plan
-
IMP:
Shortness of breath
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
Peripheral artery disease
DM 2
Essential hypertension
Constipation
A-fib�permanent
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
HLD
Obesity due to excess calories
cholecystitis status post cholecystotomy tube
Plan:
Continue diuresis today
Eventually plan for conversion to 80 mg daily
Continue IV diuretics for another 24 hours with goal of about 85 kg
A.m. labs
-
-
Date of Service: March 17, 2025
CC / HPI / ROS
-
Chief Complaint:
edema
History of Present Illness:
diuresing well with lasix
Na low 134
Cr stable 1
Mag improving 1.3
Review of Systems:
no CP/SOB
?occassional chest pain with deep breaths, not consistent
Labs
-
Labs:
WBC 10.5 10^3/uL (4.8-10.8) 03/17/25 08:32
RBC 2.75 10^6/uL (4.70-6.10) L 03/17/25 08:32
Hgb 8.0 g/dL (13.0-18.0) L 03/17/25 08:32
Hct 24.9 % (39.0-52.0) L 03/17/25 08:32
Plt Count 310 10^3/uL (130-400) 03/17/25 08:32
Sodium 133 mmol/L (135-145) L 03/17/25 08:32
Potassium 3.7 mmol/L (3.5-5.1) 03/17/25 08:32
Chloride 97 mmol/L (98-107) L 03/17/25 08:32
Carbon Dioxide 31 mmol/L (22-30) H 03/17/25 08:32
BUN 15 mg/dl (9-20) 03/17/25 08:32
Creatinine 0.9 mg/dL (0.7-1.3) 03/17/25 08:32
eGFR > 60.00 03/17/25 08:32
Glucose 137 mg/dl (70-99) H 03/17/25 08:32
Calcium 8.5 mg/dl (8.4-10.2) 03/17/25 08:32
Qzc-Y-Mhaimrwcpvx Pept 2830 pg/ml 03/14/25 18:01
Albumin 3.1 g/dl (3.5-5.0) L 03/14/25 17:10
Physical Exam
-
Vital Signs:
Vital Signs
Temp Pulse Resp BP Pulse Ox
98.2 F 61 19 128/53 99
03/17/25 11:00 03/17/25 11:00 03/17/25 11:00 03/17/25 11:00 03/17/25 11:00
Cardiovascular:: Regular rate and rhythm
Respiratory:: Bilateral: Coarse
Lung Excursion:: Normal
Abdomen:: Nontender and Soft
Bowel Sounds:: Normal
Extremity Edema:: +2: Bilateral:
[2025-03-17] MEDS: NOVOLOG FLEXPEN SC (12:30)
[2025-03-17 12:38] LABS: Glucose - Point of Care 119 mg/dl (70-99)
--- NOTE | 2025-03-17 13:42 | W.PN.CARDCBS ---
Addendum entered and electronically signed by Ruchi Rico DO 03/17/25 17:33:
I saw and examined the patient.
The Baseball Glove Shaper's note was reviewed and I agree with the note.
Comment: Seen and examined with at bedside. Patient said he was seen by PT and was able to walk a few steps. Overall shortness of breath and edema have started to improve.
GEN: NAD. AAO x3
HEENT: EOMI, MMM
LUNGS: Bronchovesicular breath sounds decreased but clear. On nasal cannula O2 3 L
CV: Afib on tele. Irreg irreg positive S1-S2. 08/08 SM
EXT: Trace B/L LE edema in heel lifts�improved.
Plan:
-Patient admitted with recurrent HFpEF after prolonged admission
-Hypoalbuminemia
-Weight is down 10 lbs from admission with Lasix 60 mg IV BID diuresis.
-Agree with nephrology's plan today addition to Lasix 80 mg once daily likely in the next 24-48 hours
- Renal function remained stable with diuresis. As you may recall patient had acute kidney injury during his last hospitalization requiring transient dialysis
-No need to repeat echo at this time, EF was preserved at 60 to 65% with stage II diastolic dysfunction on 02/02/2025
-Hypoxia improving, patient was requiring 6 L NC over the weekend and is now down to 3 L NC
-Patient is not chronically on SGLT2 inhibitor and will hold off with recent infection
-Patient with permanent A-fib and HR is controlled with his usual dose of Toprol XL 25 mg BID
-Outpatient dose of Xarelto 20 mg daily has been continued
-Outpatient cardiac follow-up will be arranged.
Original Note:
Today's Communication / Plan
-
Ongoing diuresis, almost to dry weight
Impression / Plan
-
PCP: Dr. Roman Macedo
Husbandry Technician: Dr. Munoz
Impression:
Admitted with decreased responsiveness, acute hypoxic respiratory failure and acute HFpEF 03/14/2025
Recent admission for acute HF, osteomyelitis, cholecystitis 01/28/2025 until 03/13/2025
Acute on chronic hypoxic respiratory failure
Acute on chronic HFpEF
Recent JESUS requiring transient hemodialysis 01/28/2025 until 03/13/2025
PAD
s/p intravascular lithotripsy and balloon angioplasty LLE 03/04/2025
proximal left fifth ray amputation for osteomyelitis 03/06/2025
Esophagitis on EGD 01/28/2025
Cholecystostomy tube for cholecystitis 02/24/2025
Peripheral vascular disease status post left partial fifth ray amputation 02/03/2025
Diabetes mellitus type 2
Hypertension
Permanent atrial fibrillation
s/p Medtronic DC PPM for paroxysmal CHB 2021
Moderate nonobstructive CAD by cardiac cath 09/07/2021
Dyslipidemia
Obesity
Hypomagnesemia
Echo 08/2021: EF 55-60, mild concentric LVH, small pericardial effusion
Echo 10/2024: EF 65%, mild MS, mild with gradient 10 mmHg, PASP 30 mmHg
Echo 02/02/2025: EF 60 to 65%, stage II diastolic dysfunction, normal RV size and function
Plan:
-Patient admitted with recurrent HF after prolonged admission and then transferred to [place] [facility].
-Weight is down 10 lbs from admission with Lasix 60 mg IV BID diuresis.
-Patient was not discharged to [place] also on Lasix and has had symptomatic improvement with IV diuresis thus far. Of note patient had JESUS and was on transient dialysis during his last admission in the setting of sepsis, CTA and peripheral
angiography and angioplasty.
-Nephrology following this admission and Cre has been stable. Patient is near his dry weight
-No need to repeat echo at this time, EF was preserved at 60 to 65% with stage II diastolic dysfunction on 02/02/2025
-Hypoxia improving, patient was requiring 6 L NC over the weekend and is now down to 3 L NC
-Outpatient dose of Toprol XL 25 mg BID has been continued
-Patient was not taking lisinopril just prior to this admission, but nephrology had commented in their last note on 03/13/2025 that if patient remained HTN we could add lisinopril 20 mg daily as he had previously tolerated this medication in the
past.
-Patient is not chronically on SGLT2 inhibitor and will hold off with recent infection
-Patient with permanent A-fib and HR is controlled with his usual dose of Toprol XL 25 mg BID
-Outpatient dose of Xarelto 20 mg daily has been continued
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 Will arrange follow-up with Dr. Munoz in the office at patient's request
HPI: Patient came to the ER from [place] yesterday with an episode of unresponsiveness and was admitted with acute HF and cardiology is now consulted. Patient was admitted to [facility] from 01/28/2025 until 03/13/2025 with a number of issues including acute
HF, JESUS requiring transient hemodialysis, cholecystitis with cholecystostomy tube now in place, sepsis, osteomyelitis with left partial fifth ray amputation and vascular surgery intervention and esophagitis. Patient was transferred to [place] [facility] on
03/13/2025 and nephrology have recommended ongoing Lasix therapy to help with edema and volume management, but it looks like this was not continued. Patient says he had increased SOB and then he had an episode of decreased responsiveness prompting
the ER visit. proBNP was 2830 which is less than his last check on 02/01/2025 when it was greater than 27,000. Patient had Medtronic PPM device check in the ER, but there is no mention of OptiVol data. Patient has known permanent A-fib which was
confirmed on device check in the ER that was reviewed by me.
Progress Note - Husbandry Technician
Subjective
Date of Service: March 17, 2025
He feels better, less SOB, still overall disappointed that he is in the hospital and he really wants to get out and see Dr. Muonz in the office
Objective
Labs:
03/17/25 08:32
03/17/25 08:32
Labs
Hgb 8.0 g/dL (13.0-18.0) L 03/17/25 08:32
Hct 24.9 % (39.0-52.0) L 03/17/25 08:32
Plt Count 310 10^3/uL (130-400) 03/17/25 08:32
Sodium 133 mmol/L (135-145) L 03/17/25 08:32
Potassium 3.7 mmol/L (3.5-5.1) 03/17/25 08:32
BUN 15 mg/dl (9-20) 03/17/25 08:32
Creatinine 0.9 mg/dL (0.7-1.3) 03/17/25 08:32
Glucose 137 mg/dl (70-99) H 03/17/25 08:32
Vital Signs and I&O:
Vital Signs
Temp Pulse Resp BP Pulse Ox
98.2 F 61 19 128/53 99
03/17/25 11:00 03/17/25 11:00 03/17/25 11:00 03/17/25 11:00 03/17/25 11:00
Vital Signs
Temp Pulse Resp BP Pulse Ox
98.2 F 61 19 128/53 99
03/17/25 11:00 03/17/25 11:00 03/17/25 11:00 03/17/25 11:00 03/17/25 11:00
Intake & Output
03/15/25 03/16/25 03/17/25 03/18/25
06:59 06:59 06:59 06:59
Intake Total 120 / 120 480 / 480
Output Total 550 / 550 1864 60 / 60
Balance -430 / -430 -1864 / -1864 -1390 / -1390 -60 / -60
Physical Exam
Physical Exam
GEN: NAD. AAO x3
HEENT: EOMI, MMM
LUNGS: 3 L NC. No wheeze
CV: Afib on tele. Irreg irreg
EXT: Trace B/L LE edema.
NEURO: Gross non-focal
SKIN: No rash.
--- NOTE | 2025-03-17 14:19 | W.PN.HOSP.TC ---
Today's Communication/Plan
-
Continue current care
Assessment / Plan
Assessment / Plan
Gen-AAOx3, NAD
HEENT-NC, AT, anicteric, clear oral mm
Neck-supple
CV-reg, no M, +S1/S2
Lungs-clear B/L
Abd-soft, NT, ND
Ext-mild left upper extremity edema
Musculoskeletal-no cyanosis, clubbing
Skin-warm and dry
Neuro-grossly non-focal
Psych-calm, cooperative
Acute on chronic heart failure with preserved ejection fraction -clinically improving, weight is down to 86 kg. If weight gets to 85 kg tomorrow then anticipate switching to oral diuretics as per nephrology.
Acute hypoxic respiratory failure
- Dr. Munoz is his lab scientist
- Currently requiring 3 L of oxygen, down from 5/6 L, wean as tolerated
- Cardiology/nephrology following, increased Lasix 60 mg IV twice daily on 03/16
- Patient will need to be on oral Lasix upon discharge
- Trend creatinine, trend daily weights
- Bed at [facility] being held for through Monday
Severe hypomagnesemia -improved.
Permanent atrial fibrillation
-Continue Toprol XL and Xarelto
Left fifth metatarsal abscess, acute osteomyelitis with septic shock. Sepsis and shock resolved.
Chronic left lower extremity weakness due to back injury during procedure 2019
-03/06 bone margins are clean, completed course of IV daptomycin
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 Path report from 02/04 shows focal acute osteomyelitis
-Status post left partial fifth ray amputation debridement, and wound VAC placement 03/06
-Patient declined biologic grafting, podiatry following.
PAD
-Status post lower extremity angiogram with intravascular lithotripsy to left posterior tibial artery occlusion, left popliteal artery and tibioperoneal trunk, balloon angioplasty of left posterior tibial artery and left tibioperoneal trunk on 03/04.
Follow-up with vascular surgery in the office
Acute calculous cholecystitis
-Status post percutaneous cholecystostomy tube 02/24 with IR, cx neg, completed course of antibiotics
-Needs outpatient follow-up with Dr. Bernabe Juarez
Odynophagia secondary to Severe Esophagitis found on EGD 02/13/25
Recent GI bleed
-GI performed EGD on 02/13/25: showed severe esophagitis
Path report shows acute ulcerative esophagitis, immunohistochemical stains negative for HSV 1 and 2, CMV. No fungal organisms identified.
-Continue PPI BID and Carafate
-Continue Protonix PO BID x 2 weeks then daily and carafate BID x10 days, then daily x 2 weeks then stop
LUE edema
LUE pain from needlesticks
- Doppler ultrasound negative for DVT, repeat US 02/27 also neg
- Ordered scheduled Tylenol 1000 mg Q8H prn
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
Labile hypertension
-Continue nifedipine
DM 2 with hyperglycemia
-Hemoglobin A1c 6.5. 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
-Continue Lantus 12 units at bedtime, continue aspart 5 units with meals.
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
Obesity due to excess calories
DVT Prophylaxis: Xarelto
Code Status: Full code
Dispo - [facility]
Anticipated Discharge: Within 24 hours
Subjective/Interval History
-
Date of Service: March 17, 2025
Patient seen and examined, no complaints.
Objective Data
-
Labs:
Laboratory Results
03/17/25
08:32
WBC 10.5
Hgb 8.0 L
Hct 24.9 L
Plt Count 310
Sodium 133 L
Potassium 3.7
Chloride 97 L
Carbon Dioxide 31 H
BUN 15
Creatinine 0.9
Glucose 137 H
Calcium 8.5
Vital Signs:
Vital Signs
Temp Pulse Resp BP Pulse Ox
98.2 F 61 19 128/53 99
03/17/25 11:00 03/17/25 11:00 03/17/25 11:00 03/17/25 11:00 03/17/25 11:00
I&O
03/16/25 03/17/25 03/18/25
06:59 06:59 06:59
Intake Total 480 / 480
Output Total 1864 / 186 1870 / 1870 60 / 60
Balance -1865 / -1865 -1390 / -1390 -60 / -60
Review of Systems
-
History Source: Patient
All other systems: Reviewed and negative
[2025-03-17 15:00] VITALS: BP 102/56
[2025-03-17] MEDS: KCL 20 MEQ PO (15:01)
--- NOTE | 2025-03-17 16:19 | CM ---
Addendum entered by Kasey Rodriguez 03/18/25 14:40:
Pt accepted for transfer to [facility] tomorrow.
[facility] Report: [phone]
[facility]
Addendum entered by Kasey Rodriguez 03/18/25 13:36:
Pt is cleared for discharge today to [facility]. I was able to reach Delroy and she advised that she has not yet completed a review of pt's chart. She will contact me when she has a determination.
Addendum entered by Kasye Rodriguze 03/18/25 11:43:
Voicemail left for Delroy Fraga, covering community relations liaison ([phone]), requesting update regarding bed availability for transfer. No insurance authorization required; pt has Medicare primary insurance.
[facility] Report: [phone]
[facility]
Original Note:
Cm following for return to [facility] when medically stable. Updated referral in [facility] today.
[2025-03-17 17:08] LABS: Glucose - Point of Care 236 mg/dl (70-99)
[2025-03-17] MEDS: NOVOLOG FLEXPEN-LOW RESISTANCE 2 UNITS SC (18:36)
[2025-03-17] MEDS: XARELTO 20 MG PO (18:36)
[2025-03-17] MEDS: LIPITOR 10 MG PO (18:36)
[2025-03-17] MEDS: PROCARDIA XL (EXTENDED RELEASE) PO (18:41)
[2025-03-17 19:00] VITALS: BP 108/60
[2025-03-17] MEDS: NIZORAL 2% CREAM 1 APPLIC TOPICAL (20:35)
[2025-03-17] MEDS: LEXAPRO PO ×2 (21:32→22:40)
[2025-03-17] MEDS: SENOKOT PO ×2 (21:32→22:40)
[2025-03-17 21:50] LABS: Glucose - Point of Care 161 mg/dl (70-99)
[2025-03-17] MEDS: LANTUS 0.12 UNITS SC (21:50)
--- NOTE | 2025-03-17 22:42 | PTCARENOTE ---
2200 po medications held due to patient's drowsiness.
[2025-03-17 23:00] VITALS: BP 117/57
--- NOTE | 2025-03-17 23:37 | W.PN.UPDATE ---
Update Note
Progress Note Update
pt seen by me this afternoon. pleasant, cooperative, told me that he had doing well, was at [employer], had a tiring morning session and then fell asleep and woke up back on [place]. Points at his half eaten meal and says 'I'm gonna get in trouble
for this' though claims it is because he does not like the food. No indication for increase in lexaproa at thsi time.
[2025-03-18] VITALS (8 sets, daily range): BP systolic 97–147; BP diastolic 46–66; PULSE 73–76; O2SAT 100; BMI 27.5
[2025-03-18 07:46] LABS: Glucose - Point of Care 153 mg/dl (70-99)
[2025-03-18] MEDS: COLACE 100 MG PO (09:19)
[2025-03-18] MEDS: CARAFATE SUSPENSION 1 GM PO (09:19)
[2025-03-18] MEDS: KCL 20 MEQ PO (09:19)
[2025-03-18] MEDS: PROTONIX 40 MG PO ×2 (09:19→21:29)
[2025-03-18] MEDS: NIZORAL 2% CREAM 1 APPLIC TOPICAL ×2 (09:19→21:29)
[2025-03-18] MEDS: TOPROL XL 25 MG PO (09:19)
[2025-03-18] MEDS: NOVOLOG FLEXPEN 5 UNITS SC ×3 (09:20→18:24)
[2025-03-18] MEDS: NOVOLOG FLEXPEN-LOW RESISTANCE 1 UNITS SC ×2 (09:20→14:07)
[2025-03-18] MEDS: LASIX IV (09:35)
[2025-03-18] MEDS: LASIX 80 MG PO (09:39)
[2025-03-18 09:51] LABS: Blood Urea Nitrogen 17 mg/dl (9-20); Calcium 8.5 mg/dl (8.4-10.2); Carbon Dioxide 35 mmol/L (22-30); Chloride 95 mmol/L (98-107); Estimated Creatinine Clearance 61 ml/min; Glucose 149 mg/dl (70-99); Magnesium 1.3 mg/dl (1.6-2.3); Potassium 3.9 mmol/L (3.5-5.1); Sodium 134 mmol/L (135-145); eGFR > 60.00
--- NOTE | 2025-03-18 11:20 | W.PN.CARDCBS ---
Today's Communication / Plan
-
Nephrology managing diuretics.
Will sign off
Impression / Plan
-
PCP: Dr. Roman Macedo
Nuclear Scientist: Dr. Munoz
Impression:
Admitted with decreased responsiveness, acute hypoxic respiratory failure and acute HFpEF 03/14/2025
Recent admission for acute HF, osteomyelitis, cholecystitis 01/28/2025 until 03/13/2025
Acute on chronic hypoxic respiratory failure
Acute on chronic HFpEF
Recent JESUS requiring transient hemodialysis 01/28/2025 until 03/13/2025
PAD
s/p intravascular lithotripsy and balloon angioplasty LLE 03/04/2025
proximal left fifth ray amputation for osteomyelitis 03/06/2025
Esophagitis on EGD 01/28/2025
Cholecystostomy tube for cholecystitis 02/24/2025
Peripheral vascular disease status post left partial fifth ray amputation 02/03/2025
Diabetes mellitus type 2
Hypertension
Permanent atrial fibrillation
s/p Medtronic DC PPM for paroxysmal CHB 2021
Moderate nonobstructive CAD by cardiac cath 09/07/2021
Dyslipidemia
Obesity
Hypomagnesemia
Echo 08/2021: EF 55-60, mild concentric LVH, small pericardial effusion
Echo 10/2024: EF 65%, mild MS, mild with gradient 10 mmHg, PASP 30 mmHg
Echo 02/02/2025: EF 60 to 65%, stage II diastolic dysfunction, normal RV size and function
Plan:
Nephrology is managing diuretics and then switch to oral Lasix
He remains on 4 L of oxygen however.
No further cardiac recommendations
Will sign off, call with questions
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 Will arrange follow-up with Dr. Munoz in the office at patient's request
HPI: Patient came to the ER from [place] yesterday with an episode of unresponsiveness and was admitted with acute HF and cardiology is now consulted. Patient was admitted to [facility] from 01/28/2025 until 03/13/2025 with a number of issues including acute
HF, JESUS requiring transient hemodialysis, cholecystitis with cholecystostomy tube now in place, sepsis, osteomyelitis with left partial fifth ray amputation and vascular surgery intervention and esophagitis. Patient was transferred to [place] [facility] on
03/13/2025 and nephrology have recommended ongoing Lasix therapy to help with edema and volume management, but it looks like this was not continued. Patient says he had increased SOB and then he had an episode of decreased responsiveness prompting
the ER visit. proBNP was 2830 which is less than his last check on 02/01/2025 when it was greater than 27,000. Patient had Medtronic PPM device check in the ER, but there is no mention of OptiVol data. Patient has known permanent A-fib which was
confirmed on device check in the ER that was reviewed by me.
Progress Note - Nuclear Scientist
Subjective
Date of Service: March 18, 2025
No complaints. Remains on 4 L
Objective
Labs:
03/17/25 08:32
03/18/25 08:46
Labs
Hgb 8.0 g/dL (13.0-18.0) L 03/17/25 08:32
Hct 24.9 % (39.0-52.0) L 03/17/25 08:32
Plt Count 310 10^3/uL (130-400) 03/17/25 08:32
Sodium 134 mmol/L (135-145) L 03/18/25 08:46
Potassium 3.9 mmol/L (3.5-5.1) 03/18/25 08:46
BUN 17 mg/dl (9-20) 03/18/25 08:46
Creatinine 1.0 mg/dL (0.7-1.3) 03/18/25 08:46
Glucose 149 mg/dl (70-99) H 03/18/25 08:46
Vital Signs and I&O:
Vital Signs
Temp Pulse Resp BP Pulse Ox
98.8 F 64 19 119/52 99
03/18/25 11:00 03/18/25 11:00 03/18/25 11:00 03/18/25 11:00 03/18/25 11:00
Vital Signs
Temp Pulse Resp BP Pulse Ox
98.8 F 64 19 119/52 99
03/18/25 11:00 03/18/25 11:00 03/18/25 11:00 03/18/25 11:00 03/18/25 11:00
Intake & Output
03/16/25 03/17/25 03/18/25 03/19/25
06:59 06:59 06:59 06:59
Intake Total 480 / 480 1140 / 1140
Output Total 1865 / 1865 1870 / 1870 2570 / 2570
Balance -1865 / -1865 -1390 / -1390 -1430 / -1430
Physical Exam
Physical Exam
General: Well developed, well nourished in NAD.
Neck: Supple, no JVD, HJR, carotids +2 B/L, no bruits bilaterally.
Heart: Non displaced PMI, RRR, no murmurs, No S3, S4, no rubs.
Lungs: Scattered rhonchi
Extremities: No clubbing, cyanosis or edema bilaterally.
Neuro: Grossly nonfocal, awake, alert and oriented x3.
[2025-03-18 11:38] LABS: Glucose - Point of Care 192 mg/dl (70-99)
--- NOTE | 2025-03-18 13:20 | W.PN.HOSP.TC ---
Today's Communication/Plan
-
IV magnesium
Oral magnesium oxide
Discharge to [facility]
Assessment / Plan
Assessment / Plan
Gen-AAOx3, NAD
HEENT-NC, AT, anicteric, clear oral mm
Neck-supple
CV-reg, no M, +S1/S2
Lungs-clear B/L
Abd-soft, NT, ND
Ext-mild left upper extremity edema
Musculoskeletal-no cyanosis, clubbing
Skin-warm and dry
Neuro-grossly non-focal
Psych-calm, cooperative
Acute on chronic heart failure with preserved ejection fraction -clinically improving, weight is down to 84 kg. Furosemide changed to oral today by nephrology.
Acute hypoxic respiratory failure
- Dr. Munoz is his project management instructor
- Currently requiring 3 L of oxygen, down from 5/6 L, wean as tolerated
- Patient will need to be on oral Lasix upon discharge
- Trend creatinine, trend daily weights
- Bed at [facility] being held
Severe hypomagnesemia -1.3 today, will replete IV and oral. Suspect diuretic induced hypomagnesemia.
Permanent atrial fibrillation
-Continue Toprol XL and Xarelto
Left fifth metatarsal abscess, acute osteomyelitis with septic shock. Sepsis and shock resolved.
Chronic left lower extremity weakness due to back injury during procedure 2019
-03/06 bone margins are clean, completed course of IV daptomycin
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 Path report from 02/04 shows focal acute osteomyelitis
-Status post left partial fifth ray amputation debridement, and wound VAC placement 03/06
-Patient declined biologic grafting, podiatry following.
PAD
-Status post lower extremity angiogram with intravascular lithotripsy to left posterior tibial artery occlusion, left popliteal artery and tibioperoneal trunk, balloon angioplasty of left posterior tibial artery and left tibioperoneal trunk on 03/04.
Follow-up with vascular surgery in the office
Acute calculous cholecystitis
-Status post percutaneous cholecystostomy tube 02/24 with IR, cx neg, completed course of antibiotics
-Needs outpatient follow-up with Dr. Bernabe Juarez
Odynophagia secondary to Severe Esophagitis found on EGD 02/13/25
Recent GI bleed
-GI performed EGD on 02/13/25: showed severe esophagitis
Path report shows acute ulcerative esophagitis, immunohistochemical stains negative for HSV 1 and 2, CMV. No fungal organisms identified.
-Continue PPI BID and Carafate
-Continue Protonix PO BID x 2 weeks then daily and carafate BID x10 days, then daily x 2 weeks then stop
LUE edema
LUE pain from needlesticks
- Doppler ultrasound negative for DVT, repeat US 02/27 also neg
- Ordered scheduled Tylenol 1000 mg Q8H prn
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
Labile hypertension
-Continue nifedipine
DM 2 with hyperglycemia
-Hemoglobin A1c 6.5. 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
-Continue Lantus 12 units at bedtime, continue aspart 5 units with meals.
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
Obesity due to excess calories
DVT Prophylaxis: Xarelto
Code Status: Full code
Dispo -medically stable for discharge to [facility] today. Sent [place] text to case management.
Updated on the phone. All questions answered.
Anticipated Discharge: Today
Subjective/Interval History
-
Date of Service: March 18, 2025
Patient seen and examined, no complaints.
Objective Data
-
Labs:
Laboratory Results
03/18/25
08:46
Sodium 134 L
Potassium 3.9
Chloride 95 L
Carbon Dioxide 35 H
BUN 17
Creatinine 1.0
Glucose 149 H
Calcium 8.5
Vital Signs:
Vital Signs
Temp Pulse Resp BP Pulse Ox
98.8 F 64 19 119/52 99
03/18/25 11:00 03/18/25 11:00 03/18/25 11:00 03/18/25 11:00 03/18/25 11:00
I&O
03/17/25 03/18/25 03/19/25
06:59 06:59 06:59
Intake Total 480 / 480 1140 / 1140
Output Total 1870 / 1870 2570 / 2570
Balance -1390 / -1390 -1430 / -1430
Review of Systems
-
History Source: Patient
All other systems: Reviewed and negative
[2025-03-18] MEDS: MAGNESIUM SULFATE 100 IV (14:06)
--- NOTE | 2025-03-18 14:24 | W.PN.NEPH.PH ---
Today's Communication / Plan
-
Convert to p.o. Lasix
Assessment/Plan
-
IMP:
Shortness of breath
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
Peripheral artery disease
DM 2
Essential hypertension
Constipation
A-fib�permanent
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
HLD
Obesity due to excess calories
cholecystitis status post cholecystotomy tube
Plan:
Down to 84 kg
Convert IV Lasix to p.o. 80 daily
Discussed with nursing
A.m. labs
-
-
Date of Service: March 18, 2025
CC / HPI / ROS
-
Chief Complaint:
edema
History of Present Illness:
diuresing well with lasix
Creatinine and sodium normal
Review of Systems:
no CP/SOB
Labs
-
Labs:
WBC 10.5 10^3/uL (4.8-10.8) 03/17/25 08:32
RBC 2.75 10^6/uL (4.70-6.10) L 03/17/25 08:32
Hgb 8.0 g/dL (13.0-18.0) L 03/17/25 08:32
Hct 24.9 % (39.0-52.0) L 03/17/25 08:32
Plt Count 310 10^3/uL (130-400) 03/17/25 08:32
Sodium 134 mmol/L (135-145) L 03/18/25 08:46
Potassium 3.9 mmol/L (3.5-5.1) 03/18/25 08:46
Chloride 95 mmol/L (98-107) L 03/18/25 08:46
Carbon Dioxide 35 mmol/L (22-30) H 03/18/25 08:46
BUN 17 mg/dl (9-20) 03/18/25 08:46
Creatinine 1.0 mg/dL (0.7-1.3) 03/18/25 08:46
eGFR > 60.00 03/18/25 08:46
Glucose 149 mg/dl (70-99) H 03/18/25 08:46
Calcium 8.5 mg/dl (8.4-10.2) 03/18/25 08:46
Asx-I-Bimdnnnurwx Pept 2830 pg/ml 03/14/25 18:01
Albumin 3.1 g/dl (3.5-5.0) L 03/14/25 17:10
Physical Exam
-
Vital Signs:
Vital Signs
Temp Pulse Resp BP Pulse Ox
98.8 F 64 19 119/52 99
03/18/25 11:00 03/18/25 11:00 03/18/25 11:00 03/18/25 11:00 03/18/25 11:00
Cardiovascular:: Regular rate and rhythm
Respiratory:: Bilateral: Coarse
Lung Excursion:: Normal
Abdomen:: Nontender and Soft
Bowel Sounds:: Normal
Extremity Edema:: +1: Bilateral:
[2025-03-18 17:08] LABS: Glucose - Point of Care 141 mg/dl (70-99)
[2025-03-18] MEDS: NOVOLOG FLEXPEN-LOW RESISTANCE SC (17:09)
[2025-03-18] MEDS: PROCARDIA XL (EXTENDED RELEASE) 30 MG PO (18:23)
[2025-03-18] MEDS: XARELTO 20 MG PO (18:23)
[2025-03-18] MEDS: LIPITOR 10 MG PO (18:24)
[2025-03-18] MEDS: MAGNESIUM OXIDE 400 MG PO (21:29)
[2025-03-18] MEDS: LEXAPRO 5 MG PO (21:29)
[2025-03-18] MEDS: LANTUS 0.12 UNITS SC (21:29)
[2025-03-18] MEDS: CARAFATE SUSPENSION PO ×2 (21:29→21:35)
[2025-03-18 21:30] LABS: Glucose - Point of Care 164 mg/dl (70-99)
[2025-03-18] MEDS: COLACE PO (21:32)
[2025-03-18] MEDS: TOPROL XL PO (21:32)
[2025-03-18] MEDS: SENOKOT PO (21:33)
--- NOTE | 2025-03-19 02:21 | DOWNTIME ---
There was a [employer] Client Press Setup Operator Downtime on 03/19/2025 from 0100 to 03/19/2025 at 0215. Downtime documentation of patient's care, including medication administrations, has been reconciled in the electronic record per guidelines. Refer to the
patient's paper chart under the miscellaneous tab to see printed paper medication records and downtime forms.
[2025-03-19 03:00] VITALS: BP 107/57
[2025-03-19 03:49] VITALS: BMI 27.6
[2025-03-19 06:00] VITALS: BMI 27.6
[2025-03-19 07:21] LABS: Blood Urea Nitrogen 18 mg/dl (9-20); Calcium 8.7 mg/dl (8.4-10.2); Carbon Dioxide 35 mmol/L (22-30); Chloride 92 mmol/L (98-107); Estimated Creatinine Clearance 68 ml/min; Glucose 140 mg/dl (70-99); Magnesium 1.8 mg/dl (1.6-2.3); Potassium 4.1 mmol/L (3.5-5.1); Sodium 132 mmol/L (135-145); eGFR > 60.00
[2025-03-19 07:30] VITALS: BP 111/59
[2025-03-19 08:04] LABS: Glucose - Point of Care 215 mg/dl (70-99)
[2025-03-19] MEDS: CARAFATE SUSPENSION 1 GM PO (08:46)
[2025-03-19] MEDS: COLACE 100 MG PO (08:47)
[2025-03-19] MEDS: KCL 20 MEQ PO (08:47)
[2025-03-19] MEDS: LASIX 80 MG PO (08:47)
[2025-03-19] MEDS: MAGNESIUM OXIDE 400 MG PO (08:48)
[2025-03-19] MEDS: PROTONIX 40 MG PO (08:48)
[2025-03-19] MEDS: TOPROL XL 25 MG PO (08:49)
[2025-03-19] MEDS: NIZORAL 2% CREAM 1 APPLIC TOPICAL (08:50)
[2025-03-19] MEDS: NOVOLOG FLEXPEN 5 UNITS SC ×2 (08:51→12:55)
[2025-03-19] MEDS: NOVOLOG FLEXPEN-LOW RESISTANCE 2 UNITS SC (08:52)
--- NOTE | 2025-03-19 08:53 | W.PN.POD ---
Today's Communication
Today's Communication
Left foot wound
Assessment / Plan
-
Left foot wound (Bermudez Grade 2) - S/P Partial 5th ray amputation
Type 2 Diabetes Mellitus
PAD s/p revascularization
Right Foot Tinea Pedis
The wound VAC is removed from the left foot and the wound is evaluated. [facility] See written instructions for changes- santyl ointment under the adaptec and black foam. Run VAC at 125mm HC continuous therapy.
We will continue a MWF schedule. Recommend Ketoconazole for the right foot bid. Offload heel on offloading boots in bed. Follow up with me int he office 1 week
Subjective
Chief Complaint
Left foot wound - S/P partial 5th ray amputation
Subjective
Patient awake with no complaints of pain
Objective
Temp Pulse Resp BP Pulse Ox
97.8 F 67 16 111/59 100
03/19/25 07:30 03/19/25 07:30 03/19/25 07:30 03/19/25 07:30 03/19/25 07:30
03/17/25 08:32
03/19/25 06:09
Vital Signs and Lab results were reviewed.
Physical Exam
Physical Exam
Left foot with VAC in place, no strikethrough. VAC running at 125 mmHg. Upon removal of the VAC the wound appears viable. Minimal granulation tissue around the edges. wound is approximately 40% granular beginning from proximal lateral margin and
at the distal most aspect of the wound. There is exposed fascia centrally. No signs of infection or ischemia today, viable edges. Proximal incision has sutures in place and appears healed. Right foot with some dry scaling skin in moccasin
formation.
--- NOTE | 2025-03-19 09:43 | W.PN.HOSP.TC ---
Addendum entered and electronically signed by Jed Bravo DO 03/19/25 13:11:
Sacral crease dull red stage 1 pressure injury vs resolving MASD/yeast rash. Scabbed rash R lateral ankle and L medial upper posterior heel. Mild fungal dry red rash L forefoot.
Original Note:
Today's Communication/Plan
-
Discharge
Assessment / Plan
Assessment / Plan
Gen-AAOx3, NAD
HEENT-NC, AT, anicteric, clear oral mm
Neck-supple
CV-reg, no M, +S1/S2
Lungs-clear B/L
Abd-soft, NT, ND
Ext-mild left upper extremity edema
Musculoskeletal-no cyanosis, clubbing
Skin-warm and dry
Neuro-grossly non-focal
Psych-calm, cooperative
Acute on chronic heart failure with preserved ejection fraction -clinically improving, weight is down to 84 kg. Continue Lasix 80 mg p.o. daily.
Acute hypoxic respiratory failure
- Dr. Munoz is his special education para professional
- Currently requiring 3 L of oxygen, down from 5/6 L, wean as tolerated
- Patient will need to be on oral Lasix upon discharge
- Trend creatinine, trend daily weights
- Bed at [facility] being held
Severe hypomagnesemia -resolved. Continue oral magnesium.
Permanent atrial fibrillation
-Continue Toprol XL and Xarelto
Left fifth metatarsal abscess, acute osteomyelitis with septic shock. Sepsis and shock resolved.
Chronic left lower extremity weakness due to back injury during procedure 2019
-03/06 bone margins are clean, completed course of IV daptomycin
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 Path report from 02/04 shows focal acute osteomyelitis
-Status post left partial fifth ray amputation debridement, and wound VAC placement 03/06
-Patient declined biologic grafting, podiatry following.
PAD
-Status post lower extremity angiogram with intravascular lithotripsy to left posterior tibial artery occlusion, left popliteal artery and tibioperoneal trunk, balloon angioplasty of left posterior tibial artery and left tibioperoneal trunk on 03/04.
Follow-up with vascular surgery in the office
Acute calculous cholecystitis
-Status post percutaneous cholecystostomy tube 02/24 with IR, cx neg, completed course of antibiotics
-Needs outpatient follow-up with Dr. Bernabe Juarez
Odynophagia secondary to Severe Esophagitis found on EGD 02/13/25
Recent GI bleed
-GI performed EGD on 02/13/25: showed severe esophagitis
Path report shows acute ulcerative esophagitis, immunohistochemical stains negative for HSV 1 and 2, CMV. No fungal organisms identified.
-Continue PPI BID and Carafate
-Continue Protonix PO BID x 2 weeks then daily and carafate BID x10 days, then daily x 2 weeks then stop
LUE edema
LUE pain from needlesticks
- Doppler ultrasound negative for DVT, repeat US 02/27 also neg
- Ordered scheduled Tylenol 1000 mg Q8H prn
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
Labile hypertension
-Continue nifedipine
DM 2 with hyperglycemia
-Hemoglobin A1c 6.5. Dr. Pathak is his pantograph setter
-Continue Lantus 12 units at bedtime, continue aspart 5 units with meals.
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
Obesity due to excess calories
DVT Prophylaxis: Xarelto
Code Status: Full code
Dispo -medically stable for discharge to [facility] today. Sent [place] text to case management.
35 minutes spent in discharge process.
Anticipated Discharge: Today
Subjective/Interval History
-
Date of Service: March 19, 2025
Patient seen and examined. No complaints.
Objective Data
-
Labs:
Laboratory Results
03/19/25
06:09
Sodium 132 L
Potassium 4.1
Chloride 92 L
Carbon Dioxide 35 H
BUN 18
Creatinine 0.9
Glucose 140 H
Calcium 8.7
Vital Signs:
Vital Signs
Temp Pulse Resp BP Pulse Ox
97.8 F 67 16 111/59 100
03/19/25 07:30 03/19/25 07:30 03/19/25 07:30 03/19/25 07:30 03/19/25 07:30
I&O
03/18/25 03/19/25 03/20/25
06:59 06:59 06:59
Intake Total 1140 / 1140 900 / 900
Output Total 2570 / 2570 1840 / 1840 50 / 50
Balance -1430 / -1430 -940 / -940 -50 / -50
Review of Systems
-
History Source: Patient
All other systems: Reviewed and negative
--- NOTE | 2025-03-19 09:49 | W.DS.TRANS ---
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
-
Discharge Instructions:
Sleep Apnea Risk Intermediate
Discharge Diagnosis/Procedures Acute heart failure exacerbation
Diet 2 Gram Sodium,Diabetic, Carb Controlled
Activity With assistance,As tolerated
Driving Restrictions No driving
Bathing Restrictions None
Instructions:
Stand-Alone Forms:
Changes to Home Medications: No
Discharge Medications:
DC Medications w/original date entered in [employer]
metformin 1,000 mg tablet 1,000 mg PO BID@0800,1700 Diabetes ##0 12/02/21
metoprolol succinate 25 mg tablet,extended release 24 hr 25 mg PO BID Blood Pressure 01/28/25
rivaroxaban 20 mg tablet (Xarelto) 20 mg PO QPM Blood clot prevention/tx 01/28/25
atorvastatin 10 mg tablet 10 mg PO QPM #0 tabs 03/13/25
escitalopram oxalate 5 mg tablet 5 mg PO HS #0 tabs 03/13/25
nifedipine 30 mg tablet,extended release 30 mg PO QPM #30 tabs 03/13/25
pantoprazole 40 mg tablet,delayed release See Rx Instructions .Route .COMPLEX #60 tabs 03/13/25
sodium chloride 0.65 % nasal spray aerosol (Saline Nasal) 2 sprays intranasal QIDPRN PRN dry nose/congestion #0 mL 03/13/25
sucralfate 100 mg/mL oral suspension See Rx Instructions .Route .COMPLEX #500 mL 03/13/25
Lactobac no.2-Bifidobac no.1-S. thermo 112.5 billion cell capsule (Visbiome) 1 cap PO DAILY Supplement 03/14/25
bisacodyl 10 mg rectal suppository (Dulcolax (bisacodyl)) 10 mg NC DAILYPRN PRN if no bm aftr oral tablet 03/14/25
bisacodyl 5 mg tablet,delayed release (Dulcolax (bisacodyl)) 10 mg PO DAILYPRN PRN constipation 03/14/25
collagenase clostridium histo. 250 unit/gram topical ointment (Santyl) 1 applic topical DAILY slough area of left foot 03/14/25
insulin aspart U-100 100 unit/mL (3 mL) subcutaneous pen (Novolog FlexPen U-100 Insulin aspart) 5 sliding scale dose SC AC Diabetes 03/14/25
psyllium 1 packet PO BIDPRN PRN Constipation 03/14/25
therapeutic multivitamin 1 tab PO DAILY Supplement 03/14/25
Insulin Glargine Lantus [Lantus] 12 units As Directed mls/hr SC HS 03/19/25
docusate sodium 100 mg capsule 100 mg PO BID #0 caps 03/19/25
furosemide 80 mg tablet 80 mg PO DAILY #0 tabs 03/19/25
ketoconazole 2 % topical cream 1 applic topical BID #0 grams 03/19/25
magnesium oxide 400 mg (241.3 mg magnesium) tablet 400 mg PO BID #0 tabs 03/19/25
potassium chloride 20 mEq tablet,extended release(part/cryst) 20 meq PO DAILY #0 tabs 03/19/25
Home Medication Changes
Pending Results: No
[2025-03-19 12:00] VITALS: BP 115/53
--- NOTE | 2025-03-19 12:27 | PN.CDI ---
CDI
- -
CDI:
Physician Documentation Request
Admit Date: 03/14/25 20:46
Dear Doctor Lawrence,
Please review the following and provide your response in the progress notes.
Clinical Indicators:
03/17/25 09:07 - Wound Note
#Wound Location and type/assessment:
#...Sacral crease dull red stage 1 pressure injury vs resolving MASD/yeast rash.
#...Scabbed rash R lateral ankle and L medial upper posterior heel.
#...Mild fungal dry red rash L forefoot.
Physician documentation of the type and location of wounds is required for compliant documentation. Based on the above clinical findings and your assessment, please provide the following in your progress note:
Yes, sacral crease stage 1 pressure injury, POA
No, sacral crease stage 1 pressure injury
Other (please specify)
1. Location of the ulcer/wound, including laterality.
2. Type (etiology) of ulcer/wound:
- Diabetic ulcer
- Arterial (ischemic) ulcer
- Traumatic wound
- Venous stasis ulcer
- Pressure (decubitus) ulcer
- Non-healing surgical wound
3. For a pressure ulcer, please also include the stage* of the ulcer:
- Stage 1 - Skin intact, non-blanchable redness
- Stage 2 - Partial thickness loss of dermis, includes intact or open blister
- Stage 3 - Full thickness tissue not including bone, tendon or muscle
- Stage 4 - Full thickness tissue loss, including exposed bone, tendon or muscle
- Unstageable - Full thickness loss in which the base of the ulcer is covered by slough (yellow, cárdenas, huang, green or brown) and/or eschar (cárdenas, brown or black) in the wound bed.
- Unable to determine
Use of terms such as suspected, likely, concern for, or probable (associated with a specific diagnosis that is being evaluated, monitored, or treated as if it exists) are acceptable and can be coded in the inpatient setting, when documented at the
time of discharge.
Thank you,
Catie Mccauley RN BSN CCDS
CDI Specialist
Please contact via tiger text
Please use your independent medical judgment in providing your response.
*Source: National Pressure Ulcer Advisory Panel (NPUAP)
[2025-03-19 12:46] LABS: Glucose - Point of Care 136 mg/dl (70-99)
[2025-03-19] MEDS: NOVOLOG FLEXPEN-LOW RESISTANCE SC (12:55)
--- NOTE | 2025-03-19 14:30 | WOUNDNOTE ---
WO RN note: Notified [employer] via [employer] portal of stop bill date of [facility] vac ulta pump as or today 03/19/25 and order picker/assembler (work order #[id number]). Confirmed L heel weight bear only with [employer] wedge shoe (patient has)
with walker to be added in discharge instructions with Dr. Guzman earlier today. Dr. Guzman removed vac from foot wound this am and applied Santyl/adaptic/moist gauze dressing for transfer to [facility] and [facility] can apply their vac pump. Vac wound
care instructions in discharge instructions.
--- NOTE | 2025-03-19 15:09 | W.PN.NEPH.PH ---
Today's Communication / Plan
-
po lasix
Assessment/Plan
-
IMP:
Shortness of breath
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
Peripheral artery disease
DM 2
Essential hypertension
Constipation
A-fib�permanent
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
HLD
Obesity due to excess calories
cholecystitis status post cholecystotomy tube
Plan:
Lasix to p.o. 80 daily
back to rehab
-
-
Date of Service: March 19, 2025
CC / HPI / ROS
-
Chief Complaint:
edema
History of Present Illness:
diuresing well with lasix po
parikh in place
Creatinine and sodium normal
Review of Systems:
no CP/SOB
Labs
-
Labs:
WBC 10.5 10^3/uL (4.8-10.8) 03/17/25 08:32
RBC 2.75 10^6/uL (4.70-6.10) L 03/17/25 08:32
Hgb 8.0 g/dL (13.0-18.0) L 03/17/25 08:32
Hct 24.9 % (39.0-52.0) L 03/17/25 08:32
Plt Count 310 10^3/uL (130-400) 03/17/25 08:32
Sodium 132 mmol/L (135-145) L 03/19/25 06:09
Potassium 4.1 mmol/L (3.5-5.1) 03/19/25 06:09
Chloride 92 mmol/L (98-107) L 03/19/25 06:09
Carbon Dioxide 35 mmol/L (22-30) H 03/19/25 06:09
BUN 18 mg/dl (9-20) 09/17/25 06:09
Creatinine 0.9 mg/dL (0.7-1.3) 03/19/25 06:09
eGFR > 60.00 03/19/25 06:09
Glucose 140 mg/dl (70-99) H 03/19/25 06:09
Calcium 8.7 mg/dl (8.4-10.2) 03/19/25 06:09
Dkt-B-Qoasnorlagr Pept 2830 pg/ml 03/14/25 18:01
Albumin 3.1 g/dl (3.5-5.0) L 03/14/25 17:10
Physical Exam
-
Vital Signs:
Vital Signs
Temp Pulse Resp BP Pulse Ox
98.1 F 70 16 115/53 97
03/19/25 12:00 03/19/25 12:00 03/19/25 12:00 03/19/25 12:00 03/19/25 12:00
Cardiovascular:: Regular rate and rhythm
Respiratory:: Bilateral: Coarse
Lung Excursion:: Normal
Abdomen:: Nontender and Soft
Bowel Sounds:: Normal
Extremity Edema:: +1: Bilateral:
== END 2025-03-19 14:30 | DRG 291 ==
LOC: 3 WEST ACU 20:46
PROVIDERS: Family Medicine; Physician Assistant; Physician Assistant Medical; ADMITTING PHYSICIAN Internal Medicine; ATTENDING PHYSICIAN Hospitalist; CONSULT PHYSICIAN Specialist; EMERGENCY PHYSICIAN Emergency Medicine; OTHER PHYSICIAN Internal Medicine Cardiovascular Disease; REFERRING PHYSICIAN Internal Medicine Endocrinology, Diabetes & Metabolism
DX: I11.0 Hypertensive heart disease with heart failure (principal); I50.33 Acute on chronic diastolic (congestive) heart failure; J96.21 Acute and chronic respiratory failure with hypoxia; I48.21 Permanent atrial fibrillation; E44.1 Mild protein-calorie malnutrition; L03.116 Cellulitis of left lower limb; E11.42 Type 2 diabetes mellitus with diabetic polyneuropathy; E78.00 Pure hypercholesterolemia, unspecified; I25.10 Atherosclerotic heart disease of native coronary artery without angina pectoris; E11.51 Type 2 diabetes mellitus with diabetic peripheral angiopathy without gangrene; E83.42 Hypomagnesemia; M54.9 Dorsalgia, unspecified; L89.151 Pressure ulcer of sacral region, stage 1; K59.00 Constipation, unspecified; E11.65 Type 2 diabetes mellitus with hyperglycemia; F43.20 Adjustment disorder, unspecified; K75.9 Inflammatory liver disease, unspecified; Z96.82 Presence of neurostimulator; Z95.0 Presence of cardiac pacemaker; Z87.19 Personal history of other diseases of the digestive system; Z88.0 Allergy status to penicillin; Z88.1 Allergy status to other antibiotic agents; Z91.041 Radiographic dye allergy status; Z79.84 Long term (current) use of oral hypoglycemic drugs; Z79.4 Long term (current) use of insulin; Z79.899 Other long term (current) drug therapy; Z79.01 Long term (current) use of anticoagulants; Z68.27 Body mass index [BMI] 27.0-27.9, adult; Z90.49 Acquired absence of other specified parts of digestive tract
CPT/HCPCS: 70450; 80048; 80053; 81003; 81015; 82805; 82962; 83036; 83735; 83880; 85025; 85027; 87086; 93005; 96374; 97163; 97167; 97530; 99284

== ENCOUNTER → 2025-04-17 07:38 | Outpatient (REF) | payer MEDICARE, OTHER, SELFPAY ==
[2025-04-17 08:00] VITALS: BP 154/84; BP_SYST 82
[2025-04-17 09:10] VITALS: BP 149/76
== END ==
LOC: RADI 07:38
PROVIDERS: ATTENDING PHYSICIAN Surgery
DX: Z43.4 Encounter for attention to other artificial openings of digestive tract (principal); K80.10 Calculus of gallbladder with chronic cholecystitis without obstruction
CPT/HCPCS: 47536; C1729; C1769

== ENCOUNTER → 2025-04-18 14:27 | Outpatient (REF) | payer MEDICARE, OTHER, SELFPAY | LOC: RADI 14:27 | PROVIDERS: ATTENDING PHYSICIAN Radiology Diagnostic Radiology; REFERRING PHYSICIAN Surgery | DX: Z43.4 Encounter for attention to other artificial openings of digestive tract (principal); K81.0 Acute cholecystitis | CPT/HCPCS: 47531 ==

== ENCOUNTER → 2025-04-30 14:53 | Outpatient (REF) | payer MEDICARE, OTHER, SELFPAY ==
[2025-04-30 16:28] LABS: ALT (SGPT) 14 U/L (0-50); AST (SGOT) 16 U/L (17-59); Albumin 3.8 g/dl (3.5-5.0); Alkaline Phosphatase 141 U/L (38-126); Blood Urea Nitrogen 21 mg/dl (9-20); Calcium 9.4 mg/dl (8.4-10.2); Carbon Dioxide 30 mmol/L (22-30); Chloride 93 mmol/L (98-107); Glucose 101 mg/dl (70-99); Magnesium 1.2 mg/dl (1.6-2.3); Potassium 4.0 mmol/L (3.5-5.1); Sodium 131 mmol/L (135-145); Total Protein 7.1 g/dl (6.3-8.2); eGFR > 60.00
== END ==
LOC: REG 14:53
PROVIDERS: ATTENDING PHYSICIAN Internal Medicine Cardiovascular Disease; FAMILY PHYSICIAN Family Medicine
DX: I50.32 Chronic diastolic (congestive) heart failure (principal)
CPT/HCPCS: 36415; 80053; 83735

== ENCOUNTER → 2025-05-07 16:50 | Outpatient (REF) | payer MEDICARE, OTHER, SELFPAY | LOC: REG 16:50 | PROVIDERS: ATTENDING PHYSICIAN Student in an Organized Health Care Education/Training Program; FAMILY PHYSICIAN Family Medicine | DX: M86.179 Other acute osteomyelitis, unspecified ankle and foot (principal) | CPT/HCPCS: 87070; 87075; 87077; 87147; 87205 ==

== ENCOUNTER 2025-05-10 04:23 | Inpatient (IN) | payer MEDICARE, OTHER, SELFPAY ==
[2025-05-09 21:37] VITALS: BP 128/66
[2025-05-09 21:56] LABS: Hematocrit 25.5 % (39.0-52.0); Hemoglobin 8.6 g/dL (13.0-18.0); Mean Corp Hgb Conc. 33.7 g/dL (33.0-37.0); Mean Corpuscular Volume 83.6 fL (80.0-94.0); Nucleated Red Blood Cells % 0 % (-); Platelet Count 361 10^3/uL (130-400); Red Cell Dist. Width 15.1 % (11.5-14.5)
[2025-05-09 22:07] VITALS: BP 143/79
[2025-05-09 22:08] VITALS: BMI 28.7
--- NOTE | 2025-05-09 22:09 | ED.GENMED ---
History of Present Illness
General
Chief Complaint: Fever
Source: patient, spouse and family (Sons)
Time Seen by Provider: 05/09/25 21:53
History of Present Illness
History of Present Illness:
79-year-old male presents to the emergency room for evaluation of fever, chills, weakness. Patient developed the symptoms this afternoon. Earlier in the day the patient had his cholecystostomy tube irrigated. During that process he had some
significant pain which felt like his cholecystitis pain. The tube was flushed a second time and the pain resolved. Shortly thereafter he developed chills and was found to have a temperature of 101.3. Patient is also been experiencing some
frequency of urination. He states he was going about every 15 minutes at 1 point earlier today. He did not have any real pain with urination. Patient endorses nausea but has not vomited. He denies any chest pain or shortness of breath. Patient
was hospitalized here at [facility] for an extended admission recently. During that hospitalization he had an infection and abscess of his left foot which ultimately resulted in partial amputation of the fifth digit. He had osteomyelitis as well.
During that hospitalization he had multiple complications including renal failure requiring dialysis. His renal function has recovered. He developed acute cholecystitis for which he had a cholecystostomy tube placed. Eventually he will have a
cholecystectomy but he the tube is still present. Patient states he is scheduled for additional surgery on his left foot as there is exposed bone from previous surgery. The infection itself is thought to be resolved.
Past History
Past History
ED Past Medical History: Arrthythmia (atrial fibrillation), CAD, HTN, Hypercholesterolemia, IDDM, NIDDM and Other (Back pain, hepatitis secondary to mononucleosis in 1989)
ED Past Surgical History: Orthopedic (lumbar laminectomy, bilateral knee arthroscopy) and Other (lumbar epidural steroid injection, spinal nerve stimulator implant)
Social History
Tobacco: Non-smoker
Alcohol: None
Drug: None
Personal:
Living: with family
Employment: Employed
Family History
Family History: Other (reviewed and noncontributory)
Phy Exam
Physical Exam
Physical Exam:
General: Awake, Alert, Oriented X3. No acute distress, appears pale, chronically ill
Vitals: Tachycardic,
Head: Atraumatic
Eyes: Pupils equal, EOMI
Throat: Airway intact, no exudates, dry mucosa
Neck: Trachea midline
Lungs: Clear and equal b/l
Heart: Regular rate, no murmurs
Abd: Soft, cholecystostomy tube noted in right upper quadrant, mild tenderness in the right upper quadrant and lower abdomen no pulsatile mass
Neuro: Nonfocal
Skin: Warm, dry, no rash
Extremities: pulses equal b/l, no edema. Postop shoe and dressing in place over left foot. No erythema noted from the ankle up.
Course
Orders/Labs/Results
Orders:
Orders
05/09/25 21:49
Complete Blood Count/With Diff Urgent
Comprehensive Metabolic Panel Urgent
Lactic Acid Urgent
Blood Culture Urgent
SHAWNA Source: Blood/Venous
Specimen Description:
05/09/25 22:08
Lactated Ringers [Lr] 1,000 ml IV BOLUS
05/09/25 22:11
CR Chest - 2 Views Urgent
Comment:
Reason For Exam: fever
05/09/25 22:19
COVID-19 Antigen Urgent
Source: Nasal Swab
Blood Culture Urgent
SHAWNA Source: Blood/Venous
Specimen Description:
Influenza A+B Rapid Molecular Urgent
SHAWNA Source: Nasal Swab
Specimen Description:
05/09/25 23:01
CT Abd/pelvis W Iv Cont Urgent
Comment:
Reason For Exam: fever, cholecystostomy drain, ruq pain
05/09/25 23:15
Urine Reflex Culture from UA [Urinalysis Reflex To Culture] Urgent
Date Specimen was Collected: 05/09/25
Time Specimen was Collected: 21:42
05/10/25 00:10
Urine Microscopic Reflex Cult Urgent
05/10/25 00:23
CefTRIAXone [Rocephin] 1,000 mg IV NOW STA
Doxycycline [Vibramycin] 100 mg PO NOW STA
Abnormal Lab Results
05/09/25 05/10/25
21:49 00:10
WBC 16.6 H 10^3/uL
(4.8-10.8)
RBC 3.05 L 10^6/uL
(4.70-6.10)
Hgb 8.6 L g/dL
(13.0-18.0)
Hct 25.5 L %
(39.0-52.0)
RDW 15.1 H %
(11.5-14.5)
Abs Immat Gran (auto) 0.1 H 10^3/uL
(0-0.05)
Absolute Neuts (auto) 15.2 H 10^3/uL
(1.4-6.5)
Absolute Lymphs (auto) 0.3 L 10^3/uL
(1.2-3.4)
Absolute Monos (auto) 0.9 H 10^3/uL
(0.1-0.6)
Neutrophils % 91.8 H %
(42.2-75.2)
Lymphocytes % 2.0 L %
(20.5-51.1)
Sodium 129 L mmol/L
(135-145)
Chloride 94 L mmol/L
(98-107)
BUN 33 H mg/dl
(9-20)
Glucose 177 H mg/dl
(70-99)
Alkaline Phosphatase 185 H U/L
(38-126)
Urine Ketones 2+ A
(Negative)
Urine Bacteria (Reflex) Few A
(Negative)
Urine Albumin (Reflex) 2+ A
(Neg - Trace)
05/09/25 21:49
05/09/25 21:49
Vital Signs
Initial and Last Documented VS:
Initial Vital Signs
Temp Pulse Resp BP Pulse Ox
99.2 F 109 20 128/66 97
05/09/25 21:37 05/09/25 21:37 05/09/25 21:37 05/09/25 21:37 05/09/25 21:37
Last Documented Vital Signs
Temp Pulse Resp BP Pulse Ox
99.2 F 98 19 144/71 94
05/09/25 21:37 05/10/25 00:15 05/10/25 00:15 05/10/25 00:05 05/10/25 00:15
MDM/Problems Addressed
Differential Diagnosis Includes:
Illness, chief biliary tract,, UTI
MDM/Problems Addressed:
Patient presents with fever. He had a very complicated hospitalization and rehab stay. Radiology interpretation of chest x-ray is that there is a left lower lobe infiltrate. CT of the abdomen pelvis shows the cholecystostomy tube is in place.
Everything appears similar to previous imaging per radiologist. Labs are reassuring the patient's LFTs are not particularly elevated. Urinalysis not suggestive of a urinary tract infection. Will cover with Rocephin and Doxy for pneumonia.
*Radiology
Radiology exam reviewed: radiology read reviewed
*Pulse Oximetry
SaO2: 97
Oxygen Mode of Delivery: Room air
Patient hypoxic: no
*Critical Care Note
Total Time (30-74mins, 75-104mins- exclusive of procedures): Not Applicable
Data Reviewed
Review of Other/Old Records Reveals: Discharge Summary (Recent hospitalizations)
ED Attending Note
-
Portions of this chart may have been created with voice recognition software.� Occasional wrong word or��sound alike� substitutions may have occurred due to the inherent limitations of voice recognition software.
Discharge Plan
Departure
Patient Disposition: Admit
Date of Disposition: 05/10/25
Time of Disposition: 01:35
Admit to: Med/Surg
Presentation/result/management discussed w/ accepting MD/DO: Hospitalist
Condition: Fair
Discharge Problem:
Fever, Pneumonia
Prescriptions:
No Action
Visbiome 112.5 billion cell Capsule
1 cap PO DAILY
multivitamin Tablet
1 tab PO QPM
furosemide 80 mg Tablet
80 mg PO DAILY
insulin aspart U-100 [Novolog FlexPen U-100 Insulin] 100 unit/mL (3 mL) Insulin Pen
5 unit SC AC
insulin degludec [Tresiba U-100 Insulin] 100 unit/mL Solution
15 unit SC HS
magnesium oxide 400 mg (241.3 mg magnesium) tablet
400 mg PO QID
pantoprazole 40 mg tablet,delayed release (DR/EC)
40 mg PO DAILY
Rx Instructions:
Take twice a day until 04/16/2025 then once daily thereafter
metoprolol succinate 25 mg tablet extended release 24 hr
12.5 mg PO BID
Metamucil Packet
1 packet PO DAILY
ferrous sulfate 325 mg (65 mg iron) Tablet
325 mg PO MOWEFR
metformin 850 mg Tablet
850 mg PO BID@0800,1700 30 Days Qty: 60 0RF
Xarelto 20 MG tablet
20 mg PO QPM Qty: 0 0RF
potassium chloride 20 mEq Tablet,Er Particles/Crystals
20 meq PO DAILY 30 Days Qty: 30 0RF
escitalopram oxalate 5 mg Tablet
5 mg PO HS 30 Days Qty: 30 0RF
atorvastatin 10 mg Tablet
10 mg PO QPM 30 Days Qty: 30 0RF
Referrals:
Roman Macedo Jr., DO [Family Provider, Family Practice]
Interventions
Interventions:
*Risk Screen - Suicide Last Done: 05/09/25 22:09
*General Assessment Last Done: 05/09/25 21:37
*Neglect/Abuse Screening Last Done: 05/09/25 22:09
*ED COVID-19 Vaccine History Last Done: 05/09/25 22:09
*ED Influenza Vaccine History Last Done: 05/09/25 22:09
ED- Neurological Assessment Last Done: 05/09/25 22:32
ED-Skin Assessment Last Done: 05/09/25 22:32
Discharge Date and Time
Print Language: UPPER SORBIAN
[2025-05-09 22:12] LABS: ALT (SGPT) 27 U/L (0-50); AST (SGOT) 48 U/L (17-59); Albumin 3.9 g/dl (3.5-5.0); Alkaline Phosphatase 185 U/L (38-126); Blood Urea Nitrogen 33 mg/dl (9-20); Calcium 9.0 mg/dl (8.4-10.2); Carbon Dioxide 28 mmol/L (22-30); Chloride 94 mmol/L (98-107); Estimated Creatinine Clearance 59 ml/min; Glucose 177 mg/dl (70-99); Potassium 4.2 mmol/L (3.5-5.1); Sodium 129 mmol/L (135-145); Total Protein 6.9 g/dl (6.3-8.2); eGFR > 60.00
[2025-05-09] MEDS: LR 1000 IV (22:28)
[2025-05-09 22:55] LABS: COVID-19 Antigen Negative (Negative)
[2025-05-09 23:00] VITALS: BP 136/79
[2025-05-10] VITALS (10 sets, daily range): BP systolic 98–161; BP diastolic 47–94; BMI 28.7
[2025-05-10 00:25] LABS: Urine Character Clear (Clear)
[2025-05-10] MEDS: VIBRAMYCIN 100 MG PO (00:47)
[2025-05-10] MEDS: ROCEPHIN 1000 MG IV (00:47)
[2025-05-10 01:34] LABS: Urine Red Blood Cell 0-2 /HPF (0-2); Urine White Cell 0-2 /HPF (0-5)
--- NOTE | 2025-05-10 02:44 | HPS.HSE ---
Family Physician
-
Family Physician: Roman Macedo
Chief Complaint
-
Fever
History of Present Illness
This is a 79-year-old with past medical history significant for M 2, HTN, HLD, permanent A-fib on Xarelto, permanent pacemaker cardiac pauses 2021, chronic left leg weakness due to back injury during procedure 2019, spinal stimulator, recent CHF
admission, PAD s/p angioplasty to Let Lower ext vessels, osteomyelitis s/p partial left 5th metatarsal amputation and IV daptomycin presented to the emergency department with fever, chills and weakness.
Patient during his last admission had a course complicated by acute cholecystitis status post cholecystostomy tube. Patient reported that for about 2 weeks there was no drainage from G-tube with plan to Tube pending eventual cholecystectomy.
However he started draining again recently. Due to the new drainage day visiting nurse came in and irrigated the cholecystostomy tube. She initially irrigated directly internally into the tube which caused pain that was reminiscent of his
cholecystitis pain. Did not stent flushed was in the tube into the drainage bag with solution of several small stones. Patient noted that since that the tube started draining again he has seen small stones in the tube. He has not had any symptoms
despite the new drainage up until today after the flushing when at around 6 PM he developed chills. He had shaking chills. He had no further pain at that time. They measure his temperature and it was 101.3. He had urinary frequency at around
that time going to the bathroom once about every 30 minutes. He denies dysuria. Reported nausea but no vomiting. He has not been having any cough. He denies any shortness of breath. He denies having any chest pain. He has no known sick
contacts.
As noted he was recently hospitalized for a prolonged period with CHF exacerbation, left foot infection status post partial amputation and found to have osteomyelitis for which she completed a course of IV daptomycin, course also complicated by
renal failure requiring dialysis with recovery of renal function. Course complicated by acute cholecystitis status post cholecystostomy tube placement. Plan is for an eventual cholecystectomy.
He reports he still has additional surgery pending for his left foot for exposed bone but no acute infection is suspected at this time.
In the emergency department he had a temp of 99.2, otherwise a blood pressure was 113 left 6 with a pulse of 83 and oxygen saturation of 96% on room air. His chest x-ray shows possible left lower lobe pneumonia. COVID and flu test were negative.
CBC shows a white count of 16.6 with 91% neutrophils. Hemoglobin was 8.6 which is similar to his recent baseline. Electrolytes notable for sodium of 129 otherwise unremarkable within his normal creatinine of 1.0. UA was completely negative. LFTs
shows no abnormalities and bilirubin is normal. CT of the abdomen and pelvis with small bilateral pleural effusions most notable on the left with atelectasis at the lung bases. Gallbladder wall is ill-defined similar to prior with cholelithiasis
noted.
Medical History
Past Medical History
Past Medical History: Reports Other
Additional Past Medical History:
Past medical history:
Diabetes
diabetic foot infection
Recent acute renal failure recovered
Diverticulosis
Hypertension
Diastolic congestive heart failure
A-fib and Eliquis
Peripheral vascular disease status post, status post angioplasty of the left extremity
Surgical history:
Hypertension left 2 toes
Laminectomy
Bilateral knee arthroscopy
Pacemaker placement
Social history: lives with the , no smoking alcohol use.
Family history: positive for diabetes, hypertension and coronary artery disease
Past Surgical History: Reports Other
Social History
Tobacco: Non-smoker
Alcohol: None
Drug: None
Family History
Family History: Not pertinent and Other
Allergies / Home Medications
Allergies reflects when Allergies were last updated in [employer].
Home Medications with original date entered in [employer]
Allergy/Medication List:
Allergies
Allergy/AdvReac Type Severity Reaction Status Date / Time
vancomycin Allergy Intermediate Rash Verified 05/09/25 21:37
amoxicillin (From Augmentin) Allergy Unknown severe Verified 05/09/25 21:37
diarrhea
clavulanic acid (From Allergy Unknown severe Verified 05/09/25 21:37
Augmentin) diarrhea
Home Medications
Lactobac no.2-Bifidobac no.1-S. thermo 112.5 billion cell capsule (Visbiome) 1 cap PO DAILY Supplement 03/14/25
escitalopram oxalate 5 mg tablet 5 mg PO HS Mental Health/Anxiety 30 days #30 tabs 04/01/25
metformin 850 mg tablet 850 mg PO BID@0800,1700 Diabetes 30 days #60 tabs 04/01/25
potassium chloride 20 mEq tablet,extended release(part/cryst) 20 meq PO DAILY Low potassium, supplement 30 days #30 tabs 04/01/25
rivaroxaban 20 mg tablet (Xarelto) 20 mg PO QPM Blood clot prevention/tx, #0 tabs 04/01/25
atorvastatin 10 mg tablet 10 mg PO QPM 30 days #30 tabs 04/04/25
ferrous sulfate 325 mg (65 mg iron) tablet 325 mg PO MOWEFR 05/08/25
furosemide 80 mg tablet 80 mg PO DAILY 05/08/25
insulin aspart U-100 100 unit/mL (3 mL) subcutaneous pen (Novolog FlexPen U-100 Insulin aspart) 5 unit SC AC 05/08/25
insulin degludec 100 unit/mL subcutaneous solution (Tresiba U-100 Insulin) 15 unit SC HS 05/08/25
magnesium oxide 400 mg (241.3 mg magnesium) tablet 400 mg PO QID Supplement 05/08/25
metoprolol succinate 25 mg tablet,extended release 24 hr 12.5 mg PO BID 05/08/25
multivitamin 1 tab PO QPM 05/08/25
pantoprazole 40 mg tablet,delayed release 40 mg PO DAILY 05/08/25
psyllium 1 packet PO DAILY 05/08/25
Review of Systems
-
Constitutional: Reports Fever
EENT: Reports No Symptoms
Respiratory: Reports No Symptoms
Cardiac: Reports No Symptoms
Abdomen/GI: Reports Abdominal Pain (Transient abdominal pain in the setting of flushing of the cholecystostomy tube) and Nausea
: Reports No Symptoms
Musculoskeletal: Reports No Symptoms
Skin: Reports No Symptoms
Neurological: Reports No Symptoms
Endocrine: Reports No Symptoms
Hematologic/Lymphatic: Reports No Symptoms
Psych: Reports No Symptoms
Physical Exam
Vital Signs
Vital Signs
Temp Pulse Resp BP Pulse Ox
99.2 F 93 20 113/56 97
05/09/25 21:37 05/10/25 02:00 05/10/25 02:00 05/10/25 02:00 05/10/25 02:00
Physical Exam
General: No Apparent Distress, Comfortable, Conversant and Obese
HEENT: NormoCephalic, Anicteric, Moist mucous membranes, Atraumatic, PERRLA, [place] Conjunctivae and Neck Nontender; No Oxygen
Respiratory: Clear and Non Labored Respirations; No Wheezes, Rales, Rhonchi or Crackles
Cardiac: S1/S2 and Regular Rhythm
Breast: Deferred by me
GI: Soft, Non Tender (Mild tenderness to palpation in the right upper quadrant, no guarding or rebound), Non Distended, Normal Bowel Sounds and Other (Cholecystectomy tube with drainage of bilious looking material.)
Rectal: Deferred by Provider
Genito-urinary: Deferred by me and No costovertebral tender
Musculoskeletal: No Clubbing, No Cyanosis, No Edema and Other (Left foot in bandage, no erythema, drainage or tenderness)
Skin: Warm
Neuro: AO x 3 and Nonfocal/grossly intact
Psych: Calm and Intact Judgment/Insight
Laboratory Results
-
05/09/25 21:49
05/09/25 21:49
Laboratory Results
Lactic Acid 1.0 mmol/L (0.7-2.0) 05/09/25 21:49
Total Bilirubin 0.9 mg/dl (0.2-1.3) 05/09/25 21:49
AST 48 U/L (17-59) 05/09/25 21:49
ALT 27 U/L (0-50) 05/09/25 21:49
Alkaline Phosphatase 185 U/L (38-126) H 05/09/25 21:49
Data Reviewed
-
Diagnostic Radiology: Image Personally Visualized and interpreted and Report Reviewed by me
CT Scan: Report Reviewed by me
Lab Data: Labs Reviewed by me
Old Records: Reviewed
Impression/Plan
-
IMPRESSION:
79-year-old with past medical history of type 2 diabetes, hypertension, hyperlipidemia, atrial fibrillation on Xarelto, sick sinus syndrome status post pacemaker, CHF, PAD s/p arthroplasty, osteomyelitis status post partial left fifth metatarsal
amputation, recent acute cholecystitis status post cholecystostomy tube with pending cholecystectomy presents to the emergency department with a febrile episode to 101.5 at home few hours after irrigation of the cholecystostomy tube.
Cholecystostomy tube itself started draining again recently after stopping for about 2 weeks with evaluation of small stones. Patient is afebrile in the ED with a Tmax of 98.2. She does have leukocytosis to 16.6. X-ray shows left lower lobe
infiltrate however CT of the abdomen pelvis shows proximal bilateral pleural effusions greater on the left with atelectasis and did not specify pneumonia. Gallbladder wall is ill-defined similar to prior and cholelithiasis noted. UA is completely
negative.
PLAN:
Fever -associates possibly pneumonia versus infected gallbladder drainage. Patient is without cough and no shortness of breath and is currently afebrile. Denies any pain. UA is negative.
- admit to med/surg
- blood cultures sent
- fluid culture
- foot w/o infection, s/p daptomycin
- will cover pneumonia/GB with ceftriaxone + flagyl
- check legionella urinary ag and strep ag
- h/o wound mrsa in the past, monitor for now
- monitor drainage from cholecystomy bag
DM II
- continue lantus 10 units hs, aspart 5 units ac with sliding scale , hold metformin
AFIB
- continue Xarelto 20 qpm and continue metoprolol succinate
CHF
- continue lasix 80 daily
DVT PPX - on Xarelto
Code status - Full Code
[2025-05-10] MEDS: FLAGYL 500 MG 100 IV ×3 (06:19→21:16)
[2025-05-10] MEDS: ZOFRAN 4 MG IV (06:19)
[2025-05-10] MEDS: TYLENOL 650 MG PO (06:20)
[2025-05-10 07:48] LABS: Hematocrit 26.1 % (39.0-52.0); Hemoglobin 8.6 g/dL (13.0-18.0); Mean Corp Hgb Conc. 33.0 g/dL (33.0-37.0); Mean Corpuscular Volume 86.4 fL (80.0-94.0); Platelet Count 375 10^3/uL (130-400); Red Cell Dist. Width 15.3 % (11.5-14.5)
[2025-05-10 08:14] LABS: Blood Urea Nitrogen 27 mg/dl (9-20); Calcium 8.6 mg/dl (8.4-10.2); Carbon Dioxide 28 mmol/L (22-30); Chloride 95 mmol/L (98-107); Estimated Creatinine Clearance 65 ml/min; Glucose 157 mg/dl (70-99); Potassium 3.8 mmol/L (3.5-5.1); Sodium 132 mmol/L (135-145); eGFR > 60.00
[2025-05-10 08:51] LABS: Glucose - Point of Care 185 mg/dl (70-99)
[2025-05-10] MEDS: VISBIOME 1 CAP PO (10:33)
[2025-05-10] MEDS: MAGNESIUM OXIDE 400 MG PO ×4 (10:34→21:16)
[2025-05-10] MEDS: PROTONIX 40 MG PO (10:34)
[2025-05-10] MEDS: TOPROL XL 12.5 MG PO ×2 (10:34→20:45)
[2025-05-10] MEDS: LASIX 80 MG PO (10:34)
[2025-05-10] MEDS: NOVOLOG FLEXPEN 5 UNITS SC ×3 (10:35→18:02)
[2025-05-10] MEDS: METAMUCIL, KONSYL 1 PACKET PO (10:35)
[2025-05-10] MEDS: NOVOLOG FLEXPEN-LOW RESISTANCE 1 UNITS SC (10:36)
[2025-05-10 12:02] LABS: Glucose - Point of Care 210 mg/dl (70-99)
[2025-05-10] MEDS: NOVOLOG FLEXPEN-LOW RESISTANCE 2 UNITS SC (13:31)
[2025-05-10] MEDS: FLUSH (NSS) 1 FLUSH IV (13:38)
--- NOTE | 2025-05-10 14:26 | CM ---
I. A: Completed By DARREN Salamanca.
Patient was hospitalized a long period of time, then went to [facility], then went back to the hospital, then to [facility] then to discharge home. Patient lives with in 2 story home, 2 BOBBY, flight to bedroom/bathroom, PLOF: Independent prior to
hospitalization with cane, DME: Walker, cane, shower chair. Patient had [facility] prior to this hospitalization so re-referral made.
PCP: Roman Macedo
Pharmacy: [id number]
PLAN: Anticipate Home with [facility]
--- NOTE | 2025-05-10 16:44 | W.PN.UPDATE ---
Update Note
Progress Note Update
Patient admitted 245 AM with fever/chills and RUQ pain
initial concern for pna on CXR although patient denies cp/sob/cough
he does endorse RUQ discomfort
GS consulted
Assessment:
Fever/leukocytosis
hx of Acute calculous cholecystitis
- continue empiric Abx (Rocephin/Flagyl)
- GS consult for RUQ pain, hx of GB drain. May need drain study with IR.
- concern for PNA; patient without clinical symptoms. procalcitonin pending.
Chronic HFpEF
- continue Lasix
Perm A. Fib
- continue Toprol/Xarelto
Hx of Left fifth metatarsal abscess, osteomyelitis
Chronic left lower extremity weakness due to back injury during procedure 2019
- previous amputations/debridement in January; completed Daptomycin course
- with exposed bone, for outpatient surgery Monday
- consult Podiatry/Wound team - may need Vac.
PAD
- hx of intravascular lithotripsy to left posterior tibial artery occlusion, left popliteal artery and tibioperoneal trunk, balloon angioplasty of left posterior tibial artery and left tibioperoneal trunk on 03/04
- OP Vascular f/u
HX of Odynophagia/esophagitis
- continue PPI
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
Labile hypertension
- Continue metoprolol
type 2 DM
- continue basal/bolus
- hold Metformin
- SSI
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
- on Lexapro
Obesity due to excess calories
DVT ppx: Xarelto
Code: Full
[2025-05-10] MEDS: NOVOLOG FLEXPEN-LOW RESISTANCE SC (18:01)
[2025-05-10 18:02] LABS: Glucose - Point of Care 134 mg/dl (70-99)
[2025-05-10] MEDS: LIPITOR 10 MG PO (18:06)
[2025-05-10] MEDS: XARELTO 20 MG PO (18:14)
[2025-05-10 21:05] LABS: Glucose - Point of Care 175 mg/dl (70-99)
[2025-05-10] MEDS: LEXAPRO 5 MG PO (21:16)
[2025-05-10] MEDS: LANTUS 0.1 UNITS SC (21:16)
[2025-05-11] MEDS: FLAGYL 500 MG 100 IV (05:18)
[2025-05-11 05:37] VITALS: BMI 29.1
[2025-05-11 07:59] LABS: Hematocrit 24.8 % (39.0-52.0); Hemoglobin 8.0 g/dL (13.0-18.0); Mean Corp Hgb Conc. 32.3 g/dL (33.0-37.0); Mean Corpuscular Volume 86.1 fL (80.0-94.0); Platelet Count 336 10^3/uL (130-400); Red Cell Dist. Width 15.6 % (11.5-14.5)
[2025-05-11 08:01] LABS: Procalcitonin 1.31 ng/ml (0.0-0.25)
[2025-05-11] MEDS: PROTONIX 40 MG PO (08:15)
[2025-05-11] MEDS: VISBIOME 1 CAP PO (08:17)
[2025-05-11] MEDS: MAGNESIUM OXIDE 400 MG PO ×4 (08:17→22:13)
[2025-05-11] MEDS: METAMUCIL, KONSYL 1 PACKET PO (08:17)
[2025-05-11] MEDS: LASIX 80 MG PO (08:17)
[2025-05-11 08:18] VITALS: BP 126/71
[2025-05-11] MEDS: TOPROL XL 12.5 MG PO ×2 (08:18→20:37)
[2025-05-11 08:24] LABS: Glucose - Point of Care 164 mg/dl (70-99)
[2025-05-11] MEDS: NOVOLOG FLEXPEN 5 UNITS SC ×3 (08:28→16:50)
[2025-05-11] MEDS: NOVOLOG FLEXPEN-LOW RESISTANCE 1 UNITS SC ×3 (08:29→16:50)
[2025-05-11 09:08] LABS: Blood Urea Nitrogen 27 mg/dl (9-20); Calcium 8.4 mg/dl (8.4-10.2); Carbon Dioxide 31 mmol/L (22-30); Chloride 96 mmol/L (98-107); Estimated Creatinine Clearance 54 ml/min; Glucose 141 mg/dl (70-99); Potassium 4.2 mmol/L (3.5-5.1); Sodium 133 mmol/L (135-145); eGFR > 60.00
--- NOTE | 2025-05-11 10:05 | W.PN.UPDATE ---
Update Note
Progress Note Update
79M presents with L foot wound w/ probe to 4th MT head, s/p partial 5th ray amputation. concern for OM
- Initially planned for OR tomorrow (Monday) as outpatient L partial 4th ray resection, will delay until medically optmized
- LLE partial weight bearing to heel for transfers
- continue abx
- LLE elevated on 2-3 pillows
- LWC rendered : betadine dsd, fahad
- will continue to monitor
--- NOTE | 2025-05-11 11:23 | CON.GS ---
Consultation
-
Date/Time Consultation Performed: 05/11/2025 10:50 AM
Performing Provider: Natanael
Reason for Consultation: Percutaneous cholecystostomy tube
Medical History
-
Chief Complaint: Right upper quadrant pain, fever/chills
History of Present Illness:
Patient is a 79-year-old male known to our surgical service due to the presence of a percutaneous cholecystostomy tube placed 02/24/2025 for management of acute calculous cholecystitis in the setting of his acute medical illness and deconditioning as
well as therapeutic anticoagulation.
He has had his percutaneous cholecystostomy tube to gravity drainage bag with intermittent flushes last tube check with interventional radiology was 04/18/25 at which point satisfactory positioning of the tube was confirmed as well as delayed but
subsequent opacification of the cystic and common bile duct.
Patient and his via speaker phone report very minimal drainage from the percutaneous cholecystostomy tube which has remained to a gravity bag. Last week they noted a bit more of stone fragments/sediment in the tube but continued with flushes.
On Monday a few hours after flush he developed acute right upper quadrant abdominal pain and fevers prompting emergency department evaluation and subsequent admission.
His pain has subsided. Offers no acute complaints today other than ongoing discussions regarding management of his drain.
Past Medical History
Past Medical History: Arrhythmias (Afib, CHB s/p PPM), CAD, HTN and NIDDM
Past Surgical History: Cardiac (PPM), Orthopedic (BL knee arthroscopy, lumbar laminectomy, trigger finger release bilateral hands) and Other (spinal stimulator (not MRI compatible))
Social History
Tobacco: Non-Smoker
Alcohol: None
Personal:
Living: With Family
Employment: Employed ([employer])
Family History
Family History: Reviewed & Not Pertinent
Allergies / Home Medications
Allergy/AdvReac Type Severity Reaction Status Date / Time
vancomycin Allergy Intermediate Rash Verified 05/09/25 21:37
amoxicillin (From Augmentin) Allergy Unknown severe Verified 05/09/25 21:37
diarrhea
clavulanic acid (From Allergy Unknown severe Verified 05/09/25 21:37
Augmentin) diarrhea
�Medication �Instructions �Recorded �Confirmed �Type
Lactobac no.2-Bifidobac no.1-S. 1 cap PO DAILY probiotic 03/14/25 05/10/25 History
thermo 112.5 billion cell capsule
(Visbiome)
escitalopram oxalate 5 mg tablet 5 mg PO HS Mental Health/Anxiety 04/01/25 05/10/25 Rx
30 days #30 tabs
metformin 850 mg tablet 850 mg PO BID@0800,1700 Diabetes 04/01/25 05/10/25 Rx
30 days #60 tabs
potassium chloride 20 mEq 20 meq PO DAILY Low potassium, 04/01/25 05/10/25 Rx
tablet,extended release(part/cryst) supplement 30 days #30 tabs
rivaroxaban 20 mg tablet (Xarelto) 20 mg PO QPM Blood clot 04/01/25 05/10/25 Rx
prevention/tx, #0 tabs
atorvastatin 10 mg tablet 10 mg PO QPM 30 days #30 tabs 04/04/25 05/10/25 Rx
ferrous sulfate 325 mg (65 mg 325 mg PO MOWEFR Supplement 05/08/25 05/10/25 History
iron) tablet
furosemide 80 mg tablet 80 mg PO DAILY Fluid 05/08/25 05/10/25 History
Retention/Swelling
insulin aspart U-100 100 unit/mL 5 unit SC AC Diabetes 05/08/25 05/10/25 History
(3 mL) subcutaneous pen (Novolog
FlexPen U-100 Insulin aspart)
insulin degludec 100 unit/mL 15 unit SC HS Diabetes 05/08/25 05/10/25 History
subcutaneous solution (Tresiba
U-100 Insulin)
magnesium oxide 400 mg (241.3 mg 400 mg PO QID Supplement 05/08/25 05/10/25 History
magnesium) tablet
metoprolol succinate 25 mg 12.5 mg PO BID Heart Disease/BP 05/08/25 05/10/25 History
tablet,extended release 24 hr
multivitamin 1 tab PO QPM Supplement 05/08/25 05/10/25 History
pantoprazole 40 mg tablet,delayed 40 mg PO DAILY Gastrointestinal 05/08/25 05/10/25 History
release Issue
psyllium 1 packet PO DAILY Constipation 05/08/25 05/10/25 History
Review of Systems
-
History Source: Patient and Family
All other systems: Negative unless noted
A 10 point review of systems was completed, and was negative except as per HPI.
Physical Exam
Vital Signs
Temp Pulse Resp BP Pulse Ox
98.6 F 81 18 126/71 95
05/11/25 08:18 05/11/25 08:18 05/11/25 08:18 05/11/25 08:18 05/11/25 08:18
05/10/25 05/11/25 05/12/25
06:59 06:59 06:59
Actual Weight 85.502 kg 86.693 kg
Body Mass Index (BMI) 29.1
Lab Results
05/11/25 07:17
05/11/25 07:17
WBC 9.7 10^3/uL (4.8-10.8) 05/11/25 07:17
Hgb 8.0 g/dL (13.0-18.0) L 05/11/25 07:17
Hct 24.8 % (39.0-52.0) L 05/11/25 07:17
Plt Count 336 10^3/uL (130-400) 05/11/25 07:17
Abs Immat Gran (auto) 0.1 10^3/uL (0-0.05) H 05/09/25 21:49
Neutrophils % 91.8 % (42.2-75.2) H 05/09/25 21:49
Physical Exam
General: No Apparent Distress and Comfortable
HEENT: Normocephalic, Anicteric and Moist Mucous Membranes
Respiratory: Non Labored Respirations
Cardiac: Regular Rhythm
GI: Soft, Non Tender, Non Distended and Other (Percutaneous cholecystostomy tube to gravity bag drainage. Scant bilious/mucoid fluid in bag.)
Skin: Warm
Neuro: AO x 3
Psych: Calm
Assessment / Plan
-
Assessment: 79-year-old male with percutaneous cholecystostomy tube in place for previous management of acute calculous cholecystitis.
Reviewing CT imaging percutaneous cholecystostomy tube appears to be in satisfactory position and it is able to be flushed. It appears to be functioning satisfactorily. Possibly there is temporary occlusion or maybe he passed a gallstone/sludge
although LFTs were never significantly elevated.
Plan: Continue current medical care and cholecystostomy tube to gravity bag drainage.
Will update patient's primary surgeon tomorrow
--- NOTE | 2025-05-11 11:45 | W.PN.HOSP.TC ---
Today's Communication/Plan
-
possible wound vac Monday; follow podiatry recs
continue Rocephin, add doxy for pneumonia
Assessment / Plan
Assessment / Plan
Assessment:
Fever/leukocytosis
hx of Acute calculous cholecystitis
- GS consulted; no concern for drain malfunction. No indication for IR drain study
Pneumonia, community acquired
- procal 1.3
- CXR: Posterior left lower lobe pneumonia. Likely small parapneumonic effusion
- continue Rocephin, day 2
- add Doxy, day 1
Chronic HFpEF
- continue Lasix
Perm A. Fib
- continue Toprol/Xarelto
Hx of Left fifth metatarsal abscess, osteomyelitis
Chronic left lower extremity weakness due to back injury during procedure 2019
- previous amputations/debridement in January; completed Daptomycin course
- with exposed bone, for outpatient surgery Monday
- consult Podiatry/Wound team - may need Vac.
PAD
- hx of intravascular lithotripsy to left posterior tibial artery occlusion, left popliteal artery and tibioperoneal trunk, balloon angioplasty of left posterior tibial artery and left tibioperoneal trunk on 03/04
- OP Vascular f/u
HX of Odynophagia/esophagitis
- continue PPI
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
Labile hypertension
- Continue metoprolol
type 2 DM
- continue basal/bolus
- hold Metformin
- SSI
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
- on Lexapro
Obesity due to excess calories
DVT ppx: Xarelto
Code: Full
Anticipated Discharge: 24 - 48 hours
Subjective/Interval History
-
Date of Service: May 11, 2025
resting comfortably, no new complaints at present
Objective Data
-
Labs:
Laboratory Results
05/11/25
07:17
WBC 9.7
Hgb 8.0 L
Hct 24.8 L
Plt Count 336
Sodium 133 L
Potassium 4.2
Chloride 96 L
Carbon Dioxide 31 H
BUN 27 H
Creatinine 1.1
Glucose 141 H
Calcium 8.4
Vital Signs:
Vital Signs
Temp Pulse Resp BP Pulse Ox
98.6 F 81 18 126/71 95
05/11/25 08:18 05/11/25 08:18 05/11/25 08:18 05/11/25 08:18 05/11/25 08:18
I&O
05/10/25 05/11/25 05/12/25
06:59 06:59 06:59
Intake Total 1060 / 1060
Output Total 225 / 225 675 / 675
Balance -225 / -225 385 / 385
Physical Exam
-
General: No Apparent Distress
HEENT: Normocephalic and Atraumatic
Respiratory: Negative Wheezes
Cardiac: Regular Rhythm and S1/S2
GI: Soft and Nontender
Musculoskeletal: No Edema
Neuro: AO x 3
Psych: Calm
Data Reviewed
-
Total Time Spent with Patient (in minutes): 41
Labs: Labs Reviewed by me
[2025-05-11 11:50] LABS: Glucose - Point of Care 193 mg/dl (70-99)
[2025-05-11] MEDS: VIBRAMYCIN 100 MG PO ×2 (12:57→20:37)
[2025-05-11 15:40] VITALS: BP 115/64
[2025-05-11 16:09] VITALS: BP 122/64; PULSE 77; O2SAT 94
[2025-05-11 16:10] VITALS: BP 122/64; PULSE 77; O2SAT 94
[2025-05-11 16:32] LABS: Glucose - Point of Care 185 mg/dl (70-99)
[2025-05-11] MEDS: XARELTO 20 MG PO (16:49)
[2025-05-11] MEDS: LIPITOR 10 MG PO (16:49)
[2025-05-11 21:13] LABS: Glucose - Point of Care 225 mg/dl (70-99)
[2025-05-11] MEDS: LEXAPRO 5 MG PO (22:13)
[2025-05-11] MEDS: ROCEPHIN 1000 MG IV (22:14)
[2025-05-11] MEDS: LANTUS 0.1 UNITS SC (22:14)
[2025-05-11 22:22] VITALS: BP 114/60
[2025-05-12] VITALS (10 sets, daily range): BP systolic 99–161; BP diastolic 58–80; BMI 28.9
[2025-05-12] MEDS: DUONEB 3 ML INH ×2 (02:55→20:40)
--- NOTE | 2025-05-12 08:02 | WOUNDNOTE ---
WOC RN note: Addison texted Dr. Agosto and Dr. Buchanan to clarify if WOC RN to apply L foot wound vac on patient. Dr. Agosto responded 'We are planning to take him to the operating room and will assess if vac is necessary. Were hoping to avoid a
vac with his procedure'. t/c Alondra from the OR with update.
[2025-05-12 08:13] LABS: Hematocrit 25.9 % (39.0-52.0); Hemoglobin 8.3 g/dL (13.0-18.0); Mean Corp Hgb Conc. 32.0 g/dL (33.0-37.0); Mean Corpuscular Volume 89.6 fL (80.0-94.0); Platelet Count 325 10^3/uL (130-400); Red Cell Dist. Width 15.7 % (11.5-14.5)
[2025-05-12 08:25] LABS: Glucose - Point of Care 205 mg/dl (70-99)
[2025-05-12 08:49] LABS: Blood Urea Nitrogen 21 mg/dl (9-20); Calcium 8.6 mg/dl (8.4-10.2); Carbon Dioxide 31 mmol/L (22-30); Chloride 94 mmol/L (98-107); Estimated Creatinine Clearance 54 ml/min; Glucose 186 mg/dl (70-99); Potassium 4.0 mmol/L (3.5-5.1); Sodium 131 mmol/L (135-145); eGFR > 60.00
--- NOTE | 2025-05-12 09:57 | W.PN.HOSP.TC ---
Today's Communication/Plan
-
f/w podiatry recommendations
Assessment / Plan
Assessment / Plan
Physical Exam
-
General: No Apparent Distress
HEENT: Normocephalic and Atraumatic
Respiratory: Negative Wheezes
Cardiac: Regular Rhythm and S1/S2
GI: Soft and Nontender
: No Gonzalez
Musculoskeletal: No Edema
Neuro: AO x 3
Psych: Calm
Assessment:
Fever/leukocytosis
Sepsis POA
seems c/w acute osteomyelitis of left foot: Per podiatry: L foot wound w/ probe to 4th MT head, s/p partial 5th ray amputation. concern for OM. Plan for surgery today
hx of Acute calculous cholecystitis
- GS consulted; no concern for drain malfunction. No indication for IR drain study
Pneumonia, community acquired
- procal 1.3
- CXR: Posterior left lower lobe pneumonia. Likely small parapneumonic effusion
- continue Rocephin, day 2
- added Doxy, day 1
Chronic HFpEF
- continue Lasix
Perm A. Fib
- continue Toprol/Xarelto
Hx of Left fifth metatarsal abscess, osteomyelitis
Chronic left lower extremity weakness due to back injury during procedure 2019
- previous amputations/debridement in January; completed Daptomycin course
- with exposed bone, for outpatient surgery Monday
- consult Podiatry/Wound team - may need Vac.
Hyponatremia
PAD
- hx of intravascular lithotripsy to left posterior tibial artery occlusion, left popliteal artery and tibioperoneal trunk, balloon angioplasty of left posterior tibial artery and left tibioperoneal trunk on 03/04
- OP Vascular f/u
HX of Odynophagia/esophagitis
- continue PPI
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
Labile hypertension
- Continue metoprolol
type 2 DM
- continue basal/bolus
- hold Metformin
- SSI
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
- on Lexapro
Obesity due to excess calories
DVT ppx: Xarelto
Code: Full
Total time spent to see the patient, examine the patient, review data and lab results, discuss treatment plan with patient, nursing staff around 55 minutes
Anticipated Discharge: > 48 hours
Subjective/Interval History
-
Date of Service: May 12, 2025
No chest pain
No sob
No abdominal pain
He is NPO
Objective Data
-
Labs:
Laboratory Results
05/12/25
07:50
WBC 11.2 H
Hgb 8.3 L
Hct 25.9 L
Plt Count 325
Sodium 131 L
Potassium 4.0
Chloride 94 L
Carbon Dioxide 31 H
BUN 21 H
Creatinine 1.1
Glucose 186 H
Calcium 8.6
Vital Signs:
Vital Signs
Temp Pulse Resp BP Pulse Ox
98.8 F 85 12 133/62 97
05/12/25 07:06 05/12/25 07:06 05/12/25 07:06 05/12/25 07:06 05/12/25 07:06
I&O
05/11/25 05/12/25 05/13/25
06:59 06:59 06:59
Intake Total 1060 / 1060 1260 / 1260
Output Total 675 / 675 1400 / 1400
Balance 385 / 385 -140 / -140
--- NOTE | 2025-05-12 10:01 | CM ---
Chart reviewed and plan is for patient to return to home when stable. Referral has been sent to [facility] visiting nurses.
Plan; will await decision to see if patient needs a wound vac, plan is to home with [facility] visiting nurses.
Barbie
[2025-05-12] MEDS: NOVOLOG FLEXPEN-LOW RESISTANCE 2 UNITS SC ×2 (10:29→17:18)
[2025-05-12] MEDS: NOVOLOG FLEXPEN SC ×3 (10:29→13:11)
[2025-05-12] MEDS: VIBRAMYCIN 100 MG PO ×2 (10:31→20:59)
[2025-05-12] MEDS: TOPROL XL 12.5 MG PO ×2 (10:33→20:59)
[2025-05-12] MEDS: LASIX PO (10:52)
[2025-05-12] MEDS: MAGNESIUM OXIDE PO (10:52)
[2025-05-12] MEDS: METAMUCIL, KONSYL PO (10:53)
[2025-05-12] MEDS: PROTONIX PO (10:53)
[2025-05-12] MEDS: VISBIOME PO (10:53)
--- NOTE | 2025-05-12 11:04 | W.PN.GS2 ---
Addendum entered and electronically signed by Bernabe Juarez MD 05/12/25 17:54:
Patient requested capping his PERC Jer tube which we did. If he does have any worsening abdominal plain please place this back to a bag and recontact us.
Original Note:
Today's Communication / Plan
-
Surgery signing off
Assessment / Plan
-
This is a 79-year-old male status post percutaneous cholecystostomy tube placed 02/24/2025 for acute calculous cholecystitis in the setting of acute medical illness and deconditioning as well as therapeutic anticoagulation. His most recent imaging
studies of the drain show a patent cystic duct. Though he describes some recent abdominal pain as well as nausea and vomiting after flushing the drain he is currently clinically well.
No acute surgical intervention warranted this time.
I did offer him the opportunity to cap the bag in the meantime. We do have a surgical opening at the end of the month however he wishes to do this in the new year which is reasonable.
Surgery will sign off for now, please call with any questions or concerns.
Patient to follow-up with me as an outpatient.
If the patient decides that he does want the bag capped while here, please let us know and we will swing by to disconnect the tubing. In the meantime it is reasonable to continue flushing the drain with 3 cc of saline gently.
Time Spent
Total Time Spent with Patient (in minutes): 30
Subjective Data
-
Date of Service: May 12, 2025
Interval Events:
No acute events overnight. Slept well. Pain Controlled. Denies Nausea/Vomiting, +bowel function. Tolerating diet.
Objective Data
-
Intake and Output
05/11/25 05/12/25 05/13/25
06:59 06:59 06:59
Intake Total 1060 / 1060 1260 / 1260
Output Total 675 / 675 1400 / 1400
Balance 385 / 385 -140 / -140
Intake:
Oral fluids 960 / 960 1260 / 1260
IV piggybacks 100 / 100
Output:
Drain Output (Total) 0 / 0
Right Upper Abdomen Biliary 0 / 0
Urine, Voided 675 / 675 1400 / 1400
Other:
Number of approximated MODERATE 2
amounts of urine
Vital Signs
Temp Pulse Resp BP Pulse Ox
98.8 F 85 12 133/62 97
05/12/25 07:06 05/12/25 07:06 05/12/25 07:06 05/12/25 07:06 05/12/25 07:06
Lab Results
05/12/25 07:50
05/12/25 07:50
Calcium 8.6 mg/dl (8.4-10.2) 05/12/25 07:50
Total Bilirubin 0.9 mg/dl (0.2-1.3) 05/09/25 21:49
AST 48 U/L (17-59) 05/09/25 21:49
ALT 27 U/L (0-50) 05/09/25 21:49
Alkaline Phosphatase 185 U/L (38-126) H 05/09/25 21:49
Total Protein 6.9 g/dl (6.3-8.2) 05/09/25 21:49
Albumin 3.9 g/dl (3.5-5.0) 05/09/25 21:49
Physical Exam
-
GENERAL/NEURO: Awake, Alert, no distress
CHEST: Unlabored breathing on RA
ABDOMEN: Soft, Non-Tender, Non-Distended, IR drain with bilious output
Patient has a parikh catheter: No
Patient has a central line: No
--- NOTE | 2025-05-12 11:06 | WOUNDNOTE ---
[facility] RN note: Patient admitted with fever. Patient admitted from home. He's having L 4th partial ray amp today by Dr. Agosto.
See H&P for complete history.
PMH: from H+P, DM, HTN, HLD, permanent A-fib on Xarelto, permanent pacemaker cardiac pauses 2021, chronic left leg weakness due to back injury during procedure 2019, spinal stimulator, recent CHF admission, PAD s/p angioplasty to Let Lower ext
vessels, osteomyelitis s/p partial left 5th metatarsal amputation and IV daptomycin.
Wound Location and type/assessment: Patient admitted with: Coccyx crease mild red skin suspect from pressure/moisture. R heel slow to ottoniel red/boggy. R heel blanchable red with small dull red area (does not appear new). L foot dressing/HERMELINDO D+I.
Podiatry managing L foot. Toes warm. Patient stated he followed up with Dr. Gonzalez while he was in and he is to follow up with Dr. Gonzalez in October.
Appetite: NPO for surgery today.
Pressure redistribution devices in place: [employer] Air bed. Patient can turn slowly in bed.
Plan: Protective sacral shaped silicone border foam applied to sacrum. Protective heel foam dressings changed. Patient pulled up in bed with help from RN Will. Patient turned to R semi side lying position. Heels off bed with pillow. Patient
declined soft heel relief boots. Air chair cushion given. Patient has a L flat surgical shoe for L heel weight bear only. He stated he fell at home while using the wedge surgical shoe so he can't wear that one.
Updated care plan and will follow peripherally as needed.
[2025-05-12 12:21] LABS: Glucose - Point of Care 183 mg/dl (70-99)
[2025-05-12] MEDS: NOVOLOG FLEXPEN-LOW RESISTANCE SC (13:11)
--- NOTE | 2025-05-12 13:21 | W.PN.UPDATE ---
Update Note
Progress Note Update
79M s/p L partial 4th ray resection, closed
- NWB LLE, PWB L heel in surgical shoe for transfers ONLY
- presumed surgical cure OM
-- wound cx, bone bx x2 (dirty, clean margin)
-elevate LLE 2-3 pillows
- dressings to remain c/d/i
- will reassess on AM rounds.
[2025-05-12 13:34] LABS: Glucose - Point of Care 170 mg/dl (70-99)
--- NOTE | 2025-05-12 13:42 | CON.ID ---
Consultation
-
Date/Time Consultation Requested: May 12, 2025 1330
Date/Time Consultation Performed: May 12, 2025 1340
Requesting Provider: Dr. Monserrat Mandel
Performing Provider: Dr. Angella Maguire
Reason for Consultation: Fourth toe osteo
Chief Complaint / Past History
Chief Complaint
Hypoxia
History of Present Illness
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
eventually underwent partial resection then revision, completed 6 weeks of daptomycin, PAD status post left endovascular intervention 03/04, CHF, renal failure requiring temporary hemodialysis, acute cholecystitis status post percutaneous
cholecystostomy. He was recently discharged from rehab to home on April 03. He came to the hospital May 09 due to fever up to 101.3, with chills, weakness. Was having right upper quadrant pain with small stone output from the giacomo tube. In
the interim, patient developed exposed bone to the level of left fourth metatarsal over previous 5th ray amp site. He saw Dr. Agosto on 05/07, wound clean, swabbed for cx, prescribed doxy, and scheduled for surgery on 05/12/25. In ED temperature
100.9, white count of 16.6. Chest x-ray showed left lower lobe opacity. He was started on ceftriaxone and doxycycline. CT abdomen and pelvis with showed decompressed gallbladder, small bilateral pleural effusions with atelectasis. Today he
underwent left partial fourth ray resection with closure. Bone biopsy cultures including clean margin pending. Patient reports feeling well. No fevers or chills. No cough or shortness of breath. Appetite is good. No further right upper quadrant
pain. The cholecystostomy tube is capped. He will have cholecystectomy after the new year.
Past History
Additional Past Medical History:
Diabetes mellitus type 2
Hypertension
Atrial fibrillation on Xarelto
pacemaker placement
PAD s/p endo-vascularization 03/04/25
Hx JESUS requiring temporary HD, resolved
Cholecystitis s/p perc giacomo 02/24/25
Anxiety
Chronic pain with spinal stimulator, not active
Lumbar laminectomy
Chronic left leg weakness due to history of back injury during lumbar procedure 2019
Left 5th/MT ischemia/osteo s/p resection completed 6 weeks Daptomycin (MRSA)
Allergy History:
vancomycin Allergy (Intermediate, Verified 05/09/25 21:37)
Rash
amoxicillin (From Augmentin) Allergy (Unknown, Verified 05/09/25 21:37)
severe diarrhea
clavulanic acid (From Augmentin) Allergy (Unknown, Verified 05/09/25 21:37)
severe diarrhea
Medications Reviewed: Yes
Current Antibiotics:
Ceftriaxone
Doxycycline
Social History
Tobacco: Non-Smoker
Alcohol: None
Drug: None
Personal:
Employment: Employed
Family History
Family History: Not Pertinent
Review of Systems
Review of Systems
General: Chills and Change in Appetite
HEENT: Negative Sinus Problems or Headache
Gasteroenterology: Negative Nausea or Vomiting
Genital / Urological: Negative Dysuria or Flank Pain
Endocrine: Weakness
Skin / Hair / Nails: Negative Rash
Vital Signs
Temp Pulse Resp BP Pulse Ox
98.8 F 74 19 108/58 97
05/12/25 07:06 05/12/25 13:30 05/12/25 13:30 05/12/25 13:30 05/12/25 07:06
Physical Exam
Physical Exam
Constitutional: No Acute Distress and Comfortable
Eyes: No Conjunctival Hemorrhage and Sclera Anicteric
Cardiovascular: Regular Rate and S1/S2
Pulmonary: Negative Wheezes, Rales or Rhonchi
Gastrointestinal: Soft, Non Tender, Non Distended and Normal Bowel Sounds
Genito-Urinary: Negative CVA Tenderness
Extremities: Negative Edema
Wound: Other (Left foot post-op dressing in place. )
Neurological: AO x 3
Lab / Diagnostic Study Results
05/12/25 07:50
05/12/25 07:50
Abs Immat Gran (auto) 0.1 10^3/uL (0-0.05) H 05/09/25 21:49
Absolute Neuts (auto) 15.2 10^3/uL (1.4-6.5) H 05/09/25 21:49
Absolute Lymphs (auto) 0.3 10^3/uL (1.2-3.4) L 05/09/25 21:49
Absolute Monos (auto) 0.9 10^3/uL (0.1-0.6) H 05/09/25 21:49
Absolute Basos (auto) 0.0 10^3/uL (0-0.2) 05/09/25 21:49
Immature Gran % 0.5 % (0-0.5) 05/09/25 21:49
Neutrophils % 91.8 % (42.2-75.2) H 05/09/25 21:49
Lymphocytes % 2.0 % (20.5-51.1) L 05/09/25 21:49
Monocytes % 5.4 % (1.7-9.3) 05/09/25 21:49
Eosinophils % 0.1 % (0-6) 05/09/25 21:49
Basophils % 0.2 % (0-2) 05/09/25 21:49
Lactic Acid 1.0 mmol/L (0.7-2.0) 05/09/25 21:49
Procalcitonin 1.31 ng/ml (0.0-0.25) H 05/11/25 07:17
Ur Squamous Epith Cells 6-10 /LPF (Few) 05/10/25 00:10
Microbiology Results
Micro:
05/12/25 12:40 Anaerobic Culture - Pending
Toe
05/12/25 12:40 Wound Culture - Pending
Toe Gram Stain - Pending
05/09/25 22:19 Blood Culture - Preliminary
Blood/Venous No Growth in 48 hours- Final report to follow
05/09/25 21:49 Blood Culture - Preliminary
Blood/Venous No Growth in 48 hours- Final report to follow
05/10/25 00:10 Legionella Urinary Antigen - Final
Urine Negative for Legionella pneumophila Serogroup 1 antigen.
A negative result does not rule out the possiblity of
Legionella infection due to other serogroups or species of
Legionella. Clinical correlation is recommended.
Streptococcus pneumoniae Antigen (M - Final
Negative for Streptococcus pneumoniae antigen.
A negative result does not exclude infection with
Streptococcus pneumoniae. Clinical correlation is
recommended.
05/09/25 22:19 Influenza Types A & B (GIFTY) - Final
Nasal Swab Negative for Influenza A & B, NAAT
Negative results must be combined with clinical observations
and patient history.
Nucleic Acid Amplification test (NAAT)performed on the
[employer] platform.
05/09/25 CT a/p: Gallbladder relatively decompressed around calcified stones and the cholecystostomy drain, not well evaluated.
05/09/25 CXR: Increased opacity in the posterior lung bases on lateral projection. Likely in the posterior left lung base
Assessment / Plan
# Left 4th toe MTPJ wound with presumed osteo
- 05/12/25 s/p partial ray amp with closure
- per Podiatry - SURGICAL CURE
- OR cx, path pending.
- 05/07 outpatient Wound swab cx MRSA, Klebsiella
- MRSA sensitive to current doxycycline d3
- Klebsiella sensitive to current ceftriaxone d3
- At time of dc, can go on doxycycline 100 mg po bid and cipro 500mg po bid through 05/25 for tissue coverage.
#Conditions present on admission:
Diabetes mellitus type 2
Hypertension
Atrial fibrillation on Xarelto
pacemaker placement
PAD s/p endo-vascularization 03/04/25
Hx JESUS requiring temporary HD, resolved
Cholecystitis s/p perc giacomo 02/24/25
Anxiety
Chronic pain with spinal stimulator, not active
Lumbar laminectomy
Chronic left leg weakness due to history of back injury during lumbar procedure 2019
Left 5th/MT ischemia/osteo s/p resection with revision completed 6 weeks Daptomycin (MRSA)
--- NOTE | 2025-05-12 14:52 | PN.CDI ---
Addendum entered and electronically signed by Radha Mandel MD 05/12/25 15:38:
Sepsis with fever/ leukocytosis, hypoxia
Original Note:
CDI
- -
CDI:
Physician Documentation Request
Admit Date: 05/10/25 04:[address] Mandel,
Sepsis without organ dysfunction is no longer used within our health system. These cases are now coded as the primary infection, not as sepsis.
[facility] is using an adapted version of the 2016 Third International Consensus Definitions for Sepsis and Septic Shock (Sepsis-3) where sepsis is defined as life threatening organ dysfunction caused by a deregulated host response to infection.
Please reference the official [facility] Sepsis Recognition Tool for further information, which is available on the Intranet under Infection Prevention.
Clinical Indicators Include:
Progress Notes: 'Sepsis POA...seems c/w acute osteomyelitis of left foot'
- Pneumonia, community acquired'
Trend vital signs:
Temp: 100.9
HR: 100s
RR: 20s
BP: 128/66
O2 sat: 97% on room air
Labs:
WBC: 16.6
Lactate: 1.0
Creatinine: 1.0
Platelets: 361
Bilirubin: 0.9
Treatment:
- IV abx - ceftriaxone, doxycycline, flagyl
- 1L IVF
Based on your medical judgment, please review the documentation pertaining to Sepsis due to (Enter infection) and further clarify the clinical indicators and any organ dysfunction associated with the diagnosis, if applicable:
Sepsis ruled out, acute osteomyelitis of left foot only
Sepsis due to acute osteomyelitis of left foot with organ dysfunction of
Other (please specify)
Use of terms such as suspected, likely, concern for, or probable (associated with a specific diagnosis that is being evaluated, monitored, or treated as if it exists) are acceptable and can be coded in the inpatient setting when documented at the
time of discharge.
Please use your independent medical judgement in providing your response.
Thank you,
Kathleen Pichardo RN
CDI Specialist
[2025-05-12] MEDS: MAGNESIUM OXIDE 400 MG PO ×3 (15:24→20:59)
[2025-05-12 16:59] LABS: Glucose - Point of Care 221 mg/dl (70-99)
[2025-05-12] MEDS: XARELTO 20 MG PO (17:15)
[2025-05-12] MEDS: NOVOLOG FLEXPEN 5 UNITS SC (17:18)
[2025-05-12] MEDS: LIPITOR 10 MG PO (17:21)
[2025-05-12 20:37] LABS: Glucose - Point of Care 241 mg/dl (70-99)
[2025-05-12] MEDS: LEXAPRO 5 MG PO (20:59)
[2025-05-12] MEDS: LANTUS 0.1 UNITS SC (21:05)
[2025-05-12] MEDS: STERILE WATER FOR INJECTION 10 ML IV (22:39)
[2025-05-12] MEDS: ROCEPHIN 1000 MG IV (22:39)
[2025-05-13 06:00] VITALS: BMI 28.7
[2025-05-13 07:40] VITALS: BP 133/61
[2025-05-13 08:15] LABS: Glucose - Point of Care 173 mg/dl (70-99)
[2025-05-13] MEDS: LASIX 80 MG PO (08:27)
[2025-05-13] MEDS: NOVOLOG FLEXPEN-LOW RESISTANCE 1 UNITS SC (08:27)
[2025-05-13] MEDS: NOVOLOG FLEXPEN 5 UNITS SC ×3 (08:27→18:11)
[2025-05-13] MEDS: TOPROL XL 12.5 MG PO ×2 (08:27→21:25)
[2025-05-13] MEDS: PROTONIX 40 MG PO (08:27)
[2025-05-13] MEDS: VISBIOME 1 CAP PO (08:28)
[2025-05-13] MEDS: MAGNESIUM OXIDE 400 MG PO (08:28)
[2025-05-13] MEDS: METAMUCIL, KONSYL PO (08:35)
[2025-05-13] MEDS: VIBRAMYCIN PO (08:36)
--- NOTE | 2025-05-13 10:01 | W.PN.HOSP.TC ---
Today's Communication/Plan
-
-Holding Doxy due to nausea
was concerned about nausea/ shaking episodes
- will add Reglan pre-meals
Stop magnesium ( loose stools)
d/w and pt, not ready for discharge today
Assessment / Plan
Assessment / Plan
Physical Exam
-
General: No Apparent Distress
HEENT: Normocephalic and Atraumatic
Respiratory: Negative Wheezes
Cardiac: Regular Rhythm and S1/S2
GI: Soft and Nontender
: No Gonzalez
Musculoskeletal: No Edema
Neuro: AO x 3
Psych: Calm
Assessment:
#Persistent nausea with loss of appetite
I d/w , she reported that lately he was been getting nausea and loss of appetite. When he is feeling nauseated he will have shaking and not feeling well for a while. She was not comfortable to take him home. Patient reported nausea mostly
before eating. He was taking Protonix and Carafate at home. No abdominal pain. No fever. Possibility of side effect from doxycycline. Will hold doxycycline, continue Protonix.
Will add Reglan before meals.
Patient denied diabetic gastroparesis
Fever/leukocytosis
Sepsis POA
seems c/w acute osteomyelitis of left fourth toe status post partial resection on 05/12
Status post partial 5th ray amputation in December,.
# hx of Acute calculous cholecystitis
- GS consulted; no concern for drain malfunction. No indication for IR drain study
Pneumonia, community acquired
- procal 1.3
- CXR: Posterior left lower lobe pneumonia. Likely small parapneumonic effusion
- continue Rocephin,
- Stopped doxy due to nausea
Chronic HFpEF
- continue Lasix
Perm A. Fib
- continue Toprol/Xarelto
Hx of Left fifth metatarsal abscess, osteomyelitis
Chronic left lower extremity weakness due to back injury during procedure 2019
- previous amputations/debridement in January; completed Daptomycin course
- with exposed bone, for outpatient surgery Monday
- consult Podiatry/Wound team - may need Vac.
Hyponatremia
PAD
- hx of intravascular lithotripsy to left posterior tibial artery occlusion, left popliteal artery and tibioperoneal trunk, balloon angioplasty of left posterior tibial artery and left tibioperoneal trunk on 03/04
- OP Vascular f/u
HX of Odynophagia/esophagitis
- continue PPI
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
Labile hypertension
- Continue metoprolol
type 2 DM
- continue basal/bolus
- hold Metformin
- SSI
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
- on Lexapro
Obesity due to excess calories
DVT ppx: Xarelto
Code: Full
Total time spent to see the patient, examine the patient, review data and lab results, discuss treatment plan with patient, nursing staff around 55 minutes
Anticipated Discharge: 24 - 48 hours
Subjective/Interval History
-
Date of Service: May 13, 2025
Objective Data
-
Vital Signs:
Vital Signs
Temp Pulse Resp BP Pulse Ox
97.8 F 87 18 133/61 98
05/13/25 07:40 05/13/25 07:40 05/13/25 07:40 05/13/25 07:40 05/13/25 07:40
I&O
05/12/25 05/13/25 05/14/25
06:59 06:59 06:59
Intake Total 1260 / 1260 820 / 820
Output Total 1400 / 1400 800 / 800
Balance -140 / -140 20 / 20
[2025-05-13 12:26] LABS: Glucose - Point of Care 279 mg/dl (70-99)
[2025-05-13] MEDS: NOVOLOG FLEXPEN-LOW RESISTANCE 3 UNITS SC (12:48)
[2025-05-13] MEDS: REGLAN 5 MG IV ×2 (12:48→18:19)
--- NOTE | 2025-05-13 12:59 | W.PN.UPDATE ---
Update Note
Progress Note Update
79M s/p L partial 4th ray resection, closed. doing well this am. no pain, cft wnl, sensaiton conssitent with baseline. dheeraj funciton intact to toes. calf soft supple nontender to touch
- NWB LLE, PWB L heel in surgical shoe for transfers ONLY
- presumed surgical cure OM
-- wound cx, bone bx x2 (dirty, clean margin)
-elevate LLE 2-3 pillows
- dressings to remain c/d/i
- may follow up in office with myself or Dr. Agosto.
--- NOTE | 2025-05-13 13:41 | CM ---
Chart reviewed and patient to return to home with spouse when stable, and [facility] visiting nurses.
Plan; Home with [facility] visiting nurses when stable.
[facility]
[2025-05-13 15:35] VITALS: BP 131/68
[2025-05-13 16:28] LABS: Glucose - Point of Care 247 mg/dl (70-99)
[2025-05-13] MEDS: NOVOLOG FLEXPEN-LOW RESISTANCE 2 UNITS SC (18:12)
[2025-05-13] MEDS: LIPITOR 10 MG PO (18:14)
[2025-05-13] MEDS: XARELTO 20 MG PO (18:19)
[2025-05-13] MEDS: STERILE WATER FOR INJECTION 10 ML IV (21:25)
[2025-05-13] MEDS: LEXAPRO 5 MG PO (21:25)
[2025-05-13] MEDS: ROCEPHIN 1000 MG IV (21:26)
[2025-05-13 21:55] LABS: Glucose - Point of Care 212 mg/dl (70-99)
[2025-05-13] MEDS: LANTUS 0.1 UNITS SC (22:49)
[2025-05-13 23:56] VITALS: BP 108/54
[2025-05-14 07:40] VITALS: BP 158/83
[2025-05-14 08:27] LABS: Glucose - Point of Care 184 mg/dl (70-99)
[2025-05-14] MEDS: LASIX 80 MG PO (08:34)
[2025-05-14] MEDS: PROTONIX 40 MG PO (08:34)
[2025-05-14] MEDS: TOPROL XL 12.5 MG PO (08:34)
[2025-05-14] MEDS: NOVOLOG FLEXPEN 5 UNITS SC ×2 (08:35→12:38)
[2025-05-14] MEDS: METAMUCIL, KONSYL PO (08:35)
[2025-05-14] MEDS: NOVOLOG FLEXPEN-LOW RESISTANCE 1 UNITS SC (08:36)
[2025-05-14] MEDS: REGLAN 5 MG IV ×2 (08:42→12:43)
[2025-05-14 08:51] LABS: Hematocrit 27.6 % (39.0-52.0); Hemoglobin 8.6 g/dL (13.0-18.0); Mean Corp Hgb Conc. 31.2 g/dL (33.0-37.0); Mean Corpuscular Volume 88.5 fL (80.0-94.0); Platelet Count 368 10^3/uL (130-400); Red Cell Dist. Width 15.9 % (11.5-14.5)
[2025-05-14 09:41] LABS: Blood Urea Nitrogen 11 mg/dl (9-20); Calcium 9.1 mg/dl (8.4-10.2); Carbon Dioxide 30 mmol/L (22-30); Chloride 95 mmol/L (98-107); Estimated Creatinine Clearance 59 ml/min; Glucose 167 mg/dl (70-99); Potassium 3.6 mmol/L (3.5-5.1); Sodium 135 mmol/L (135-145); eGFR > 60.00
--- NOTE | 2025-05-14 10:04 | W.PN.HOSP.TC ---
Today's Communication/Plan
-
dc
Assessment / Plan
Assessment / Plan
Physical Exam
-
General: No Apparent Distress
HEENT: Normocephalic and Atraumatic
Respiratory: Negative Wheezes
Cardiac: Regular Rhythm and S1/S2
GI: Soft and Nontender
: No Gonzalez
Musculoskeletal: No Edema
Neuro: AO x 3
Psych: Calm
Assessment:
#Persistent nausea with loss of appetite
Resolved with holding doxy and use of ant-nausea. Pt tolerated diet well
Patient denied diabetic gastroparesis
Fever/leukocytosis
Sepsis POA
seems c/w acute osteomyelitis of left fourth toe status post partial resection on 05/12
Status post partial 5th ray amputation in December,.
d/w podiatry and ID, dc on Zyvox, pt counseled about holding Lexapro.
# hx of Acute calculous cholecystitis
- GS consulted; no concern for drain malfunction. No indication for IR drain study
Pneumonia, community acquired
Resolved
o cough
Clear lungs
No hypoxia.
Chronic HFpEF
- continue Lasix
Perm A. Fib
- continue Toprol/Xarelto
Hx of Left fifth metatarsal abscess, osteomyelitis
Chronic left lower extremity weakness due to back injury during procedure 2019
- previous amputations/debridement in January; completed Daptomycin course
- with exposed bone, for outpatient surgery Monday
- consult Podiatry/Wound team - may need Vac.
Hyponatremia
PAD
- hx of intravascular lithotripsy to left posterior tibial artery occlusion, left popliteal artery and tibioperoneal trunk, balloon angioplasty of left posterior tibial artery and left tibioperoneal trunk on 03/04
- OP Vascular f/u
HX of Odynophagia/esophagitis
- continue PPI
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
Labile hypertension
- Continue metoprolol
type 2 DM
- continue basal/bolus
- hold Metformin
- SSI
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
- on Lexapro
Obesity due to excess calories
DVT ppx: Xarelto
Code: Full
Total discharge time spent to see the patient, examine the patient, review data and lab results, discuss discharge plan with patient, nursing staff around 65 minutes
Anticipated Discharge: Today
Subjective/Interval History
-
Date of Service: May 14, 2025
Doing well
No chest pain
No nausea
No sob
Objective Data
-
Labs:
Laboratory Results
05/14/25
08:27
WBC 10.2
Hgb 8.6 L
Hct 27.6 L
Plt Count 368
Sodium 135
Potassium 3.6
Chloride 95 L
Carbon Dioxide 30
BUN 11
Creatinine 1.0
Glucose 167 H
Calcium 9.1
Vital Signs:
Vital Signs
Temp Pulse Resp BP Pulse Ox
97.6 F 89 16 158/83 95
05/14/25 07:40 05/14/25 07:40 05/14/25 07:40 05/14/25 07:40 05/14/25 07:40
I&O
05/13/25 05/14/25 05/15/25
06:59 06:59 06:59
Intake Total 820 / 820 1680 / 1680
Output Total 800 / 800 250 / 250
Balance 1430 / 1430
--- NOTE | 2025-05-14 11:52 | W.PN.ID1 ---
Date of Service
Date of Service: May 14, 2025
Today's Communication
- Pt agreeable to hold escitalopram while on linezolid 600mg po bid through 05/25.
Assessment / Plan
# Left 4th toe MTPJ wound with presumed osteo
- 05/12/25 s/p partial ray amp with closure
- per Podiatry - SURGICAL CURE
- OR cx, MRSA. path pending.
- 05/07 outpatient Wound swab cx MRSA, Klebsiella
- MRSA sensitive to current doxycycline d3
- Klebsiella sensitive to current ceftriaxone d3
- Podiatry requesting 2 weeks of po abx.
- Pt intolerant to doxycycline.
- Pt agreeable to hold escitalopram while on linezolid 600mg po bid through 05/25.
Discussed avoid tyramine-rich foods while on linezolid.
- No need to cover the Klebsiella recovered from wound surface swab.
#Conditions present on admission:
Diabetes mellitus type 2
Hypertension
Atrial fibrillation on Xarelto
pacemaker placement
PAD s/p endo-vascularization 03/04/25
Hx JESUS requiring temporary HD, resolved
Cholecystitis s/p perc giacomo 02/24/25
Anxiety
Chronic pain with spinal stimulator, not active
Lumbar laminectomy
Chronic left leg weakness due to history of back injury during lumbar procedure 2019
Left 5th/MT ischemia/osteo s/p resection with revision completed 6 weeks Daptomycin (MRSA)
Chief Complaint
-: Other (foot osteo)
Subjective / Review of Systems
was having GI upset/nausea on doxycycline. Doxy held yesterday, pt feeling better today.
Vital Signs / Physical Exam
Vital Signs
Vital Signs
Temp Pulse Resp BP Pulse Ox
97.6 F 89 16 158/83 95
05/14/25 07:40 05/14/25 07:40 05/14/25 07:40 05/14/25 07:40 05/14/25 07:40
Physical Exam
Constitutional: No Acute Distress
Cardiovascular: Regular Rate and S1/S2
Pulmonary: Clear
Gastrointestinal: Soft, Non Tender and Non Distended
Extremities: Negative Edema
Wound: Other (left foot dressing dry)
Neurological: AO x 3
Objective Data
Lab Data
Lab Results
05/14/25 08:27
05/14/25 08:27
Estimated Creat Clear 59 ml/min 05/14/25 08:27
Lactic Acid 1.0 mmol/L (0.7-2.0) 05/09/25 21:49
Total Bilirubin 0.9 mg/dl (0.2-1.3) 05/09/25 21:49
AST 48 U/L (17-59) 05/09/25 21:49
ALT 27 U/L (0-50) 05/09/25 21:49
Alkaline Phosphatase 185 U/L (38-126) H 05/09/25 21:49
Most recent labs reviewed.
Micro Results:
05/12/25 12:40 Wound Culture - Preliminary
Toe Staph aureus MRSA
Gram Stain - Preliminary
05/09/25 22:19 Blood Culture - Preliminary
Blood/Venous No Growth in 4 days- Final report to follow
05/09/25 21:49 Blood Culture - Preliminary
Blood/Venous No Growth in 4 days- Final report to follow
05/12/25 12:40 Anaerobic Culture - Preliminary
Toe Culture pending. Anaerobic cultures are examined after 3
days incubation. Additional information to follow.
05/10/25 00:10 Legionella Urinary Antigen - Final
Urine Negative for Legionella pneumophila Serogroup 1 antigen.
A negative result does not rule out the possiblity of
Legionella infection due to other serogroups or species of
Legionella. Clinical correlation is recommended.
Streptococcus pneumoniae Antigen (M - Final
Negative for Streptococcus pneumoniae antigen.
A negative result does not exclude infection with
Streptococcus pneumoniae. Clinical correlation is
recommended.
05/09/25 22:19 Influenza Types A & B (GIFTY) - Final
Nasal Swab Negative for Influenza A & B, NAAT
Negative results must be combined with clinical observations
and patient history.
Nucleic Acid Amplification test (NAAT)performed on the
[employer] platform.
05/09/25 CT a/p: Gallbladder relatively decompressed around calcified stones and the cholecystostomy drain, not well evaluated.
05/09/25 CXR: Increased opacity in the posterior lung bases on lateral projection. Likely in the posterior left lung base
Care Review
Plan reviewed with: Physician (Dr. Mandel)
--- NOTE | 2025-05-14 12:02 | CM ---
Chart reviewed, plan is to home with spouse and [facility] visiting nurses when stable.
[facility]
[2025-05-14 12:22] LABS: Glucose - Point of Care 258 mg/dl (70-99)
[2025-05-14] MEDS: NOVOLOG FLEXPEN-LOW RESISTANCE 3 UNITS SC (12:39)
[2025-05-14] MEDS: ZYVOX 600 MG PO (13:09)
[2025-05-14 14:17] VITALS: BP 102/61
--- NOTE | 2025-05-14 15:56 | W.DCSUMMARY ---
Discharge Summary
Discharge Data
Date of Admission: 05/09/25
Date of Discharge: 05/14/25
-
Pending Results: No
Hospital Course
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 In the emergency department he had a temp of 99.2, blood pressure was 128/66 with a pulse of 83 and oxygen saturation of 96% on room air. His chest
x-ray showed possible left lower lobe pneumonia. COVID and flu test were negative. CBC showed a white count of 16.6 with 91% neutrophils. Hemoglobin was 8.6 which is similar to his recent baseline. Electrolytes notable for sodium of 129
otherwise unremarkable within his normal creatinine of 1.0. UA was completely negative. LFTs shows no abnormalities and bilirubin is normal. CT abdomen and pelvis with showed decompressed gallbladder, small bilateral pleural effusions with
atelectasis. Blood culture did not show any growth. Patient was evaluated by surgery with no GI issue as of concern for infection. Patient was evaluated by vacuum technician. It felt the left foot had cellulitis. Subsequent testing showed fourth
metatarsal bone infection consistent with osteomyelitis. Patient underwent left partial fourth toe amputation. Patient started to improve clinically. He was noted to have GI symptoms and thought related to doxycycline. He was evaluated by ID
doctor. Type Copyist recommended antibiotic postdischarge. Patient was started on linezolid treatment. He was counseled to hold Lexapro while on treatment. Patient remained hemodynamic stable. He was evaluated by podiatry and agreed to continue
follow-up in the outpatient setting. Discharge instructions were discussed with patient and his . Patient was discharged in a stable condition.
Discharge Plan
-
Patient Disposition: Home with Home Care
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
s/p IV Abx, seen by podiatry & ID doctors.
- hold escitalopram while on linezolid 600mg po bid through 05/25.
Diet: As tolerated and Diabetic, Carb Controlled
Activity Restrictions/Additional Instructions:
Hold escitalopram while on linezolid.
Avoid tyramine-rich food products while on linezolid.
L foot as per vacuum technician's instructions.
Activity restrictions and weight bear restrictions as per surgeon's instructions.
Elevate heels off bed with pillows
Air chair cushion
Follow up with Dr. Reuben Agosto.
Follow up with Dr. Gonzalez.
Referrals:
Reuben Agosto DPM [Active, Podiatry] - in one week
Roman Macedo Jr., DO [Family Provider, [facility]]
Prescriptions:
New
linezolid 600 mg Tablet
600 mg PO BID Qty: 22 0RF
ondansetron HCl 4 mg tablet
4 mg PO BIDPRN PRN (Reason: nausea and vomiting) Qty: 20 0RF
Continued
Visbiome 112.5 billion cell Capsule
1 cap PO DAILY
multivitamin Tablet
1 tab PO QPM
furosemide 80 mg Tablet
80 mg PO DAILY
insulin aspart U-100 [Novolog FlexPen U-100 Insulin] 100 unit/mL (3 mL) Insulin Pen
5 unit SC AC
insulin degludec [Tresiba U-100 Insulin] 100 unit/mL Solution
15 unit SC HS
pantoprazole 40 mg tablet,delayed release (DR/EC)
40 mg PO DAILY
Rx Instructions:
Take twice a day until 04/16/2025 then once daily thereafter
metoprolol succinate 25 mg tablet extended release 24 hr
12.5 mg PO BID
psyllium Packet
1 packet PO DAILY
ferrous sulfate 325 mg (65 mg iron) Tablet
325 mg PO MOWEFR
metformin 850 mg Tablet
850 mg PO BID@0800,1700 30 Days Qty: 60 0RF
Xarelto 20 MG tablet
20 mg PO QPM Qty: 0 0RF
potassium chloride 20 mEq Tablet,Er Particles/Crystals
20 meq PO DAILY 30 Days Qty: 30 0RF
atorvastatin 10 mg Tablet
10 mg PO QPM 30 Days Qty: 30 0RF
Changed
magnesium oxide 400 mg (241.3 mg magnesium) tablet
400 mg PO BID Qty: 0 0RF
Held
escitalopram oxalate 5 mg Tablet
5 mg PO HS 30 Days Qty: 30 0RF
Hold Instructions: Resume on 05/26/25.
Discharge Orders:
Discharge Patient (As Directed); Ordered 05/14/25
Ordered By: Radha Mandel
Discharge Date and Time
Discharge Date/Time: 05/14/25 15:46
Print Language: SUDANESE
--- NOTE | 2025-05-20 17:01 | CM ---
TC from [facility] from [facility], no d/c summary or instructions received on discharge.
This CM will print and fax to [phone].
== END 2025-05-14 15:46 | disposition home health service (06) | DRG 853 ==
LOC: 4 WEST ACU 04:23
PROVIDERS: Internal Medicine; Student in an Organized Health Care Education/Training Program; ADMITTING PHYSICIAN Internal Medicine; ATTENDING PHYSICIAN Internal Medicine; CONSULT PHYSICIAN Surgery; EMERGENCY PHYSICIAN Emergency Medicine; FAMILY PHYSICIAN Family Medicine; OTHER PHYSICIAN Internal Medicine Infectious Disease; OTHER PHYSICIAN Student in an Organized Health Care Education/Training Program
PROC: 0JBR0ZX Excision of Left Foot Subcutaneous Tissue and Fascia, Open Approach, Diagnostic (ICD-10-PCS; 2025-05-12)
PROC: 0Y6W0Z1 Detachment at Left 4th Toe, High, Open Approach (ICD-10-PCS; 2025-05-12)
DX: A41.9 Sepsis, unspecified organism (principal); J18.9 Pneumonia, unspecified organism; I50.32 Chronic diastolic (congestive) heart failure; I48.21 Permanent atrial fibrillation; E87.1 Hypo-osmolality and hyponatremia; M86.172 Other acute osteomyelitis, left ankle and foot; J98.11 Atelectasis; Z11.52 Encounter for screening for COVID-19; Z79.01 Long term (current) use of anticoagulants; I11.0 Hypertensive heart disease with heart failure; Z98.62 Peripheral vascular angioplasty status; I70.202 Unspecified atherosclerosis of native arteries of extremities, left leg; E66.09 Other obesity due to excess calories; Z68.28 Body mass index [BMI] 28.0-28.9, adult; E11.69 Type 2 diabetes mellitus with other specified complication; R65.20 Severe sepsis without septic shock; E11.621 Type 2 diabetes mellitus with foot ulcer; E11.628 Type 2 diabetes mellitus with other skin complications; Z79.4 Long term (current) use of insulin; R09.02 Hypoxemia
CPT/HCPCS: 71046; 74177; 80048; 80053; 81003; 81015; 82962; 83605; 84145; 85025; 85027; 87040; 87070; 87075; 87077; 87147; 87186; 87205; 87449; 87502; 87811; 87899; 88304; 88305; 88311; 94640; 96361; 96374; 97162; 97166; 97530; 99285; Q9967

== ENCOUNTER → 2025-06-24 09:41 | Outpatient (REF) | payer MEDICARE, OTHER, SELFPAY ==
[2025-06-24 12:46] LABS: Hematocrit 29.4 % (39.0-52.0); Hemoglobin 9.3 g/dL (13.0-18.0); Mean Corp Hgb Conc. 31.6 g/dL (33.0-37.0); Mean Corpuscular Volume 88.3 fL (80.0-94.0); Nucleated Red Blood Cells % 0 % (-); Platelet Count 304 10^3/uL (130-400); Red Cell Dist. Width 16.9 % (11.5-14.5)
[2025-06-24 13:41] LABS: Albumin 4.2 g/dl (3.5-5.0); Blood Urea Nitrogen 29 mg/dl (9-20); Calcium 9.3 mg/dl (8.4-10.2); Carbon Dioxide 30 mmol/L (22-30); Chloride 100 mmol/L (98-107); Glucose 193 mg/dl (70-99); Iron 56 ug/dl (49-181); Magnesium 1.4 mg/dl (1.6-2.3); Potassium 4.0 mmol/L (3.5-5.1); Sodium 137 mmol/L (135-145); eGFR > 60.00
[2025-06-24 13:50] LABS: Total Iron Binding Capacity 324 ug/dl (261-462)
[2025-06-24 14:09] LABS: Ferritin 32.4 ng/ml (17.9-464.0)
== END ==
LOC: HWLAB 09:41
PROVIDERS: ATTENDING PHYSICIAN Internal Medicine; FAMILY PHYSICIAN Family Medicine; REFERRING PHYSICIAN Internal Medicine Cardiovascular Disease
DX: E83.42 Hypomagnesemia (principal); R80.9 Proteinuria, unspecified; D64.9 Anemia, unspecified; E87.1 Hypo-osmolality and hyponatremia
CPT/HCPCS: 36415; 80069; 82570; 82728; 83540; 83550; 83735; 83935; 84156; 84300; 85025